=== PATIENT | female | born 1955 | race Caucasian/White ===

== ENCOUNTER → 2017-01-31 | Outpatient (CLI) | payer BC, SELFPAY | PROVIDERS: Visit Provider Internal Medicine Adolescent Medicine | DX: E11.9 Type 2 diabetes mellitus without complications (principal); E03.9 Hypothyroidism, unspecified; E78.5 Hyperlipidemia, unspecified | CPT/HCPCS: 36415; 80053; 80061; 83036; 84443 ==

== ENCOUNTER 2017-03-13 07:49 | Day surgery (SDC) | payer BC, SELFPAY ==
[2017-03-09 10:18] VITALS: BMI 41.6
[2017-03-13] VITALS (7 sets, daily range): BP systolic 91–151; BP diastolic 53–92; PULSE 61–76; RESP 18–20; TEMP 36.1–36.9; O2SAT 96–100
--- NOTE | 2017-03-13 08:03 | HMH.PROC ---
[facility] Procedure Note Procedure Note:: Colonoscopy Procedure Report: Colonoscopy Endoscopist: Dann Ibarra II, MD Referring physician: Ziyad Salomon M.D. Date of Procedure: March 13, 2017 Equipment: Olympus 180 variable stiffness pediatric colonoscope Sedation: MAC sedation Indication: Mrs. Martínez is a 61-year-old female who is here for follow-up screening/surveillance colonoscopy. The patient reports a strong family history of colon cancer (father with colon cancer in his early 70s and mother with colon cancer in her mid 60s. The patient did have a normal colonoscopy in September 2001 and January 2008. Her colonoscopy in 2012 showed a single polyp. The patient reports no abdominal pain, weight loss or change in her bowel habits. The patient does have a history of diarrhea predominant irritable bowel syndrome but does get some constipation. She notes some occasional spotting of blood on the toilet tissue from hemorrhoids. Procedure: Prior to the procedure, a history and physical exam was performed, and patient's medications and allergies were reviewed. The risks, benefits and alternatives of the sedation and procedure were discussed with the patient. All questions were answered and informed consent was obtained. The patient was brought to the procedure room. Patient identification and proposed procedure were verified by the physician and the nurse. The patient was placed in a left lateral decubitus position and the scope was passed under direct vision. Throughout the procedure, the patient's blood pressure, pulse, and oxygen saturations were monitored continuously. The colonoscopy was accomplished without difficulty. The patient tolerated the procedure well. Findings: On digital rectal examination there was normal rectal tone. There were no external hemorrhoids. The colonoscope was introduced through the anal canal to the rectum and advanced to the cecum. The ileocecal valve and appendiceal orifice were identified. The scope was advanced a short distance into the ileum which appeared grossly normal. The scope was then withdrawn into the colon. The cecum, ascending and transverse colon and mucosa were grossly normal. There were scattered diverticuli throughout the descending and sigmoid colon (LEFT colon). The rectum itself was normal. Upon retroflexion within the rectum there were grade 1 internal hemorrhoids. Impression: 1. Left-sided diverticulosis 2. Grade 1 internal hemorrhoids Plan: Based upon the patient's family history, I would recommend repeat screening/surveillance colonoscopy again in 5 years. I would encourage fiber bulking supplementation on a long-term daily maintenance basis.
--- NOTE | 2017-03-13 08:11 | P.PN_ITS ---
[facility] Anesthesia Checklist - Patient Identification Patient Identification: Arm Band, Verbal (Name & ) - Structural Data Admitted From: Home Planned Operative Procedure/s: colonoscopy Consent for Planned Operative Procedure(s) Verified: Yes Verified Documents: Surgical Consent - NPO Status Verified Time NPO: 00:00 - Additional verifications Patient : No Anesthesia Reactions: No Hx Blood Transfusions: No Blood Transfusion Reaction: No Cephalosporin Allergy: No Previous Colonoscopy: No - Cardiovascular Assessment Heart Sounds: S1 & S2 Pulse Strength: Strong Pulse Rhythm: Regular Peripheral Edema: No - Airway Assessment C-Spine Mobility Assessed: Yes TMJ Mobility Assessed: Yes Dentition: Good Dentition - Neurological Assessment Level of Consciousness: Awake, Alert, Appropriate Hx Seizures: No Numbness or tingling in extremities: No - Anesthesia Plan Anesthesia Risk discussed: Yes ASA Class: III Anesthesia Type: MAC [facility] Anesthesia HX I have reviewed the patient's past medical history: Yes Medical History: Reports:: Diabetes Mellitus Type 2 (prediabetic), Gastroesophageal Reflux Disease(GERD), Hyperlipidemia, Hypertension Denies:: Diabetes Mellitus Type 1, Internal Pacemaker, Lung Disease Other Surgeries: Yes: Colonoscopy, Hysterectomy-Partial. No: Pacemaker Amputation: No Fractures: No *Family Hx:: Unable to obtain
[2017-03-13 08:43] LABS: POC Glucose,Bedside 116 mg/dL
== END 2017-03-13 10:40 | disposition home or self-care (01) ==
LOC: OUTP 07:54
PROVIDERS: Family Provider Internal Medicine Adolescent Medicine; PCP Internal Medicine Adolescent Medicine; Visit Provider Internal Medicine Gastroenterology
PROC: 0DJD8ZZ Inspection of Lower Intestinal Tract, Via Natural or Artificial Opening Endoscopic (ICD-10-PCS; CPT 45378; principal; 2017-03-13 08:30)
DX: Z12.11 Encounter for screening for malignant neoplasm of colon (principal); Z80.0 Family history of malignant neoplasm of digestive organs; K58.2 Mixed irritable bowel syndrome; K57.30 Diverticulosis of large intestine without perforation or abscess without bleeding; K64.0 First degree hemorrhoids
CPT/HCPCS: 45378; 82962

== ENCOUNTER → 2017-05-31 07:31 | Outpatient (CLI) | payer BC, SELFPAY ==
[2017-05-31 09:53] LABS: Alanine Aminotransferase 34 U/L (12-78); Albumin Level 3.6 gm/dL (3.4-5.0); Albumin/Globulin Ratio 1.2 (1.1-1.8); Alkaline Phosphatase 105 U/L (46-116); Anion Gap 16.6 mEq/L (5-15); Aspartate Amino Transferase 15 U/L (15-37); Bilirubin,Total 0.4 mg/dL (0.2-1.0); Blood Urea Nitrogen 18 mg/dL (7-18); Calcium 9.2 mg/dL (8.5-10.1); Carbon Dioxide 23 mmol/L (21.0-32.0); Chloride 106 mmol/L (98-107); Chol/HDL Ratio 3.9 (1-3.5); Cholesterol 137 mg/dL (140-200); Creatinine,Serum 0.83 mg/dL (0.55-1.02); Estimated Glomerular Filt Rate 69 ml/min (>60); GFR (African American) 84 ML/MIN (>60); Glucose 122 mg/dL (74-106); HDL Cholesterol 35 mg/dL (29-89); LDL Cholesterol 77 mg/dL (0-130); Potassium 4.6 mmoL/L (3.5-5.1); Sodium 141 mmol/L (136-145); Thyroid Stimulating Hormone 0.44 uIU/ml (0.358-3.740); Total Protein,Serum 6.6 gm/dL (6.4-8.2); Triglycerides 124 mg/dL (30-200); VLDL Cholesterol 25 mg/dL (0-40)
[2017-05-31 10:23] LABS: Hemoglobin A1C 6.2 % (0.0-7.0)
== END ==
PROVIDERS: Visit Provider Internal Medicine Adolescent Medicine
DX: E11.9 Type 2 diabetes mellitus without complications (principal); E03.9 Hypothyroidism, unspecified
CPT/HCPCS: 36415; 80053; 80061; 83036; 84443

== ENCOUNTER 2017-07-28 15:00 | Outpatient (RCR) | payer BC, SELFPAY | END 2017-07-28 15:01 | disposition home or self-care (01) | LOC: PT 15:00 | PROVIDERS: Family Provider Internal Medicine Adolescent Medicine; PCP Internal Medicine Adolescent Medicine; Visit Provider Orthopaedic Surgery | DX: M25.561 Pain in right knee (principal) | CPT/HCPCS: 97014; 97016; 97033; 97035; 97110; 97163; 97164; G0283 ==

== ENCOUNTER → 2018-03-28 10:04 | Outpatient (CLI) | payer BC, SELFPAY ==
[2018-03-28 11:52] LABS: Alanine Aminotransferase 35 U/L (12-78); Albumin Level 3.6 gm/dL (3.4-5.0); Albumin/Globulin Ratio 1.2 (1.1-1.8); Alkaline Phosphatase 103 U/L (46-116); Anion Gap 14.5 mEq/L (5-15); Aspartate Amino Transferase 12 U/L (15-37); Bilirubin,Total 0.6 mg/dL (0.2-1.0); Blood Urea Nitrogen 20 mg/dL (7-18); Carbon Dioxide 26 mmol/L (21.0-32.0); Chloride 107 mmol/L (98-107); Chol/HDL Ratio 3.6 (1-3.5); Cholesterol 140 mg/dL (140-200); Creatinine,Serum 0.82 mg/dL (0.55-1.02); Estimated Glomerular Filt Rate 70 ml/min (>60); Free Thyroxine Index 4.3 ug/dL (5.93-13.13); GFR (African American) 85 ML/MIN (>60); Globulin 2.9 gm/dl (1.3-3.2); Glucose 106 mg/dL (74-106); HDL Cholesterol 39 mg/dL (29-89); LDL Cholesterol 83 mg/dL (0-130); Potassium 4.5 mmoL/L (3.5-5.1); Sodium 143 mmol/L (136-145); T4 (Thyroxine) 12.4 ug/dl (4.7-13.3); Total Protein,Serum 6.5 gm/dL (6.4-8.2); Triglycerides 92 mg/dL (30-200); Triiodothryronine (T3) Uptake 35 % (31-39); VLDL Cholesterol 18 mg/dL (0-40)
[2018-03-28 13:32] LABS: Hemoglobin A1C 6.8 % (0.0-7.0)
== END ==
PROVIDERS: Visit Provider Internal Medicine Adolescent Medicine
DX: E78.5 Hyperlipidemia, unspecified (principal); E11.9 Type 2 diabetes mellitus without complications; E03.9 Hypothyroidism, unspecified
CPT/HCPCS: 36415; 80053; 80061; 83036; 84436; 84443; 84479

== ENCOUNTER → 2018-04-17 15:06 | Outpatient (CLI) | payer BC, SELFPAY ==
--- NOTE | 2018-04-17 15:08 | MR_ITS ---
MR head/brain wo con HISTORY: Sudden onset of headache in the left frontal area with dizziness ITS.REASON: OTHER MIGRAINE NOT INTRACTABLE ORDERING PHYSICIAN: Nancy Powers PATIENT AGE: 62 years Comparison: 04/16/2013 TECHNIQUE: Standard multiplanar multiecho sequences are performed without contrast. FINDINGS: No midline shift, mass effect, intracranial hemorrhage, or hydrocephalus is evident. The cerebellopontine angles, cerebellum, and brainstem have an unremarkable appearance. There are a few scattered periventricular T2 white matter hyperintensities consistent with mild ischemic gliotic change from microvascular disease. There are a few additional T2 white matter hyperintensities compared to the previous study. No acute infarction. There is hyperostosis frontalis internal. Partially the sella is present as a normal variant. No mastoid effusion or sinus air-fluid level IMPRESSION: 1. No acute intracranial findings 2. Nonspecific periventricular T2 white matter hyperintensities consistent with ischemic gliotic changes
== END ==
PROVIDERS: PCP Internal Medicine Adolescent Medicine; Visit Provider Nurse Practitioner Family
DX: G43.809 Other migraine, not intractable, without status migrainosus (principal)
CPT/HCPCS: 70551

== ENCOUNTER → 2018-05-16 07:55 | Outpatient (CLI) | payer BC, SELFPAY ==
[2018-05-16 08:31] LABS: Basophils # 0.1 K/mm3 (0-0.2); Basophils % 0.9 % (0.1-2.0); Eosinophils # 0.2 K/mm3 (0.0-0.4); Eosinophils % 2.5 % (0.1-12.0); Hematocrit 40.4 % (37.0-47.0); Hemoglobin 13.2 g/dL (12.2-16.2); Lymphocytes # 3.5 K/mm3 (0.7-4.5); Lymphocytes % 40.4 % (10-50); Mean Corpuscular HGB Conc 32.7 g/dL (31.8-35.4); Mean Corpuscular Hemoglobin 28.5 pg (27.0-31.2); Mean Platelet Volume 7.1 fl (7.4-10.4); Monocytes # 0.4 K/mm3 (0.1-1.0); Monocytes % 4.1 % (1.7-9.3); Neutrophils # 4.5 K/mm3 (1.8-7.8); Neutrophils % 52.2 % (37.0-80.0); Platelet Count 329 K/mm3 (142-424); Red Blood Count 4.65 M/mm3 (4.20-5.40); Red Cell Distribution Width 13.4 % (11.5-17.5); White Blood Count 8.6 K/mm3 (4.8-10.8)
[2018-05-16 09:08] LABS: Alanine Aminotransferase 32 U/L (12-78); Albumin Level 3.5 gm/dL (3.4-5.0); Alkaline Phosphatase 106 U/L (46-116); Aspartate Amino Transferase 17 U/L (15-37); Bilirubin,Direct 0.1 mg/dL (0.0-0.2); Bilirubin,Indirect 0.2 mg/dL (0.0-0.9); Bilirubin,Total 0.3 mg/dL (0.2-1.0); Chol/HDL Ratio 3.5 (1-3.5); Cholesterol 138 mg/dL (140-200); HDL Cholesterol 39 mg/dL (29-89); LDL Cholesterol 82 mg/dL (0-130); Total Protein,Serum 6.6 gm/dL (6.4-8.2); Triglycerides 83 mg/dL (30-200); VLDL Cholesterol 17 mg/dL (0-40)
[2018-05-16 09:13] LABS: Free Thyroxine Index 4.5 ug/dL (5.93-13.13); T4 (Thyroxine) 12.8 ug/dl (4.7-13.3); Thyroid Stimulating Hormone 1.64 uIU/ml (0.358-3.740); Triiodothryronine (T3) Uptake 35 % (31-39)
[2018-05-17 15:07] LABS: FSH 27.2 mIU/mL (.); LH 16.3 mIU/mL (.)
== END ==
PROVIDERS: Visit Provider Internal Medicine Adolescent Medicine
DX: R23.2 Flushing (principal); E78.5 Hyperlipidemia, unspecified
CPT/HCPCS: 36415; 80061; 80076; 83001; 83002; 84436; 84443; 84479; 85025

== ENCOUNTER → 2018-09-28 11:13 | Outpatient (CLI) | payer BC, MEDICARE, SELFPAY ==
[2018-09-28 15:28] LABS: Alanine Aminotransferase 38 U/L (12-78); Albumin Level 3.6 gm/dL (3.4-5.0); Albumin/Globulin Ratio 1.1 (1.1-1.8); Alkaline Phosphatase 99 U/L (46-116); Anion Gap 16.1 mEq/L (5-15); Aspartate Amino Transferase 15 U/L (15-37); Bilirubin,Total 0.4 mg/dL (0.2-1.0); Blood Urea Nitrogen 26 mg/dL (7-18); Calcium 9.1 mg/dL (8.5-10.1); Carbon Dioxide 26 mmol/L (21.0-32.0); Chloride 103 mmol/L (98-107); Chol/HDL Ratio 3.6 (1-3.5); Cholesterol 115 mg/dL (140-200); Creatinine,Serum 0.93 mg/dL (0.55-1.02); Estimated Glomerular Filt Rate 61 ml/min (>60); GFR (African American) 73 ML/MIN (>60); Globulin 3.2 gm/dl (1.3-3.2); Glucose 109 mg/dL (74-106); HDL Cholesterol 32 mg/dL (29-89); LDL Cholesterol 54 mg/dL (0-130); Potassium 4.1 mmoL/L (3.5-5.1); Sodium 141 mmol/L (136-145); Thyroid Stimulating Hormone 1.36 uIU/ml (0.358-3.740); Total Protein,Serum 6.8 gm/dL (6.4-8.2); Triglycerides 146 mg/dL (30-200); VLDL Cholesterol 29 mg/dL (0-40)
== END ==
PROVIDERS: PCP Internal Medicine Adolescent Medicine; Visit Provider Internal Medicine Adolescent Medicine
DX: E78.5 Hyperlipidemia, unspecified (principal); E03.9 Hypothyroidism, unspecified; E11.9 Type 2 diabetes mellitus without complications; Z79.84 Long term (current) use of oral hypoglycemic drugs
CPT/HCPCS: 36415; 80053; 80061; 83036; 84443

== ENCOUNTER → 2018-12-10 12:56 | Outpatient (POV) | payer BC, MEDICARE, SELFPAY | PROVIDERS: PCP Internal Medicine Adolescent Medicine; Visit Provider Nurse Practitioner Family | DX: Z00.00 Encounter for general adult medical examination without abnormal findings (principal) ==

== ENCOUNTER → 2019-06-25 10:20 | Outpatient (CLI) | payer BC, MEDICARE, SELFPAY ==
[2019-06-25 11:05] LABS: Basophils # 0.1 K/mm3 (0-0.2); Basophils % 1.1 % (0.1-2.0); Eosinophils # 0.5 K/mm3 (0.0-0.4); Eosinophils % 5.4 % (0.1-12.0); Lymphocytes # 3.5 K/mm3 (0.7-4.5); Lymphocytes % 37.7 % (10-50); Mean Corpuscular HGB Conc 32.4 g/dL (31.8-35.4); Mean Corpuscular Hemoglobin 27.5 pg (27.0-31.2); Mean Platelet Volume 7.6 fl (7.4-10.4); Monocytes # 0.5 K/mm3 (0.1-1.0); Monocytes % 5.8 % (1.7-9.3); Neutrophils # 4.6 K/mm3 (1.8-7.8); Neutrophils % 49.9 % (37.0-80.0); Platelet Count 365 K/mm3 (142-424); Red Blood Count 4.71 M/mm3 (4.20-5.40); Red Cell Distribution Width 13.6 % (11.5-17.5); White Blood Count 9.2 K/mm3 (4.8-10.8)
[2019-06-25 12:13] LABS: Alanine Aminotransferase 24 U/L (12-78); Albumin Level 4.4 g/dl (3.5-5.0); Albumin/Globulin Ratio 1.7 (1.1-1.8); Alkaline Phosphatase 109 U/L (38-126); Anion Gap 13.2 mEq/L (5-15); Aspartate Amino Transferase 25 U/L (14-36); Bilirubin,Total 0.5 mg/dl (0.2-1.3); Blood Urea Nitrogen 21 mg/dl (7-17); Calcium 10.2 mg/dl (8.4-10.2); Carbon Dioxide 29 mmol/L (22.0-30.0); Chloride 99 mmol/L (98-107); Chol/HDL Ratio 2.8 (1-3.5); Cholesterol 85 mg/dl (140-200); Estimated Glomerular Filt Rate 72 ml/min (>60); GFR (African American) 87 ML/MIN (>60); Globulin 2.6 g/dL (1.3-3.2); Glucose 136 mg/dl (74-100); HDL Cholesterol 30 mg/dl (40-60); Potassium 4.2 mmoL/L (3.5-5.1); Sodium 137 mmol/L (136-145); Triglycerides 124 mg/dl (30-150); VLDL Cholesterol 25 mg/dL (0-40)
[2019-06-25 12:23] LABS: Direct LDL Cholesterol 43.24 mg/dL (100-129)
[2019-06-25 12:41] LABS: Thyroid Stimulating Hormone 0.05 uIU/mL (0.465-4.68)
[2019-06-25 13:26] LABS: Hemoglobin A1C 6.1 % (4.0-6.0)
[2019-06-27 11:13] LABS: Vitamin D 25 Hydroxy 47.9 ng/mL (30.0-100.0)
== END ==
PROVIDERS: Visit Provider Internal Medicine Adolescent Medicine
DX: E78.5 Hyperlipidemia, unspecified (principal); E03.9 Hypothyroidism, unspecified; E11.9 Type 2 diabetes mellitus without complications; Z79.84 Long term (current) use of oral hypoglycemic drugs
CPT/HCPCS: 36415; 80053; 80061; 82652; 83036; 84443; 85025

== ENCOUNTER → 2019-07-04 08:56 | Outpatient (CLI) | payer BC, MEDICARE, SELFPAY ==
[2019-07-04 10:24] LABS: Coronavirus 19 IgG Antibody Negative (Negative); Coronavirus 19 IgM Antibody Negative (Negative)
== END ==
PROVIDERS: Visit Provider Internal Medicine Gastroenterology
DX: Z03.818 Encounter for observation for suspected exposure to other biological agents ruled out (principal)
CPT/HCPCS: 36415; 86328

== ENCOUNTER 2019-07-05 08:57 | Day surgery (SDC) | payer BC, MEDICARE, SELFPAY ==
--- NOTE | 2019-07-02 11:46 | SUR.PREOP ---
07/02/2019 @ 5496--PHONE CALL MADE TO PATIENT. PATIENT UNDERSTANDS THAT LAB WORK AND COVID TESTING NEEDS TO BE COMPLETED @ 0900 ON 07/04/2019. PATIENT UNDERSTANDS IF LAB WORK AND COVID-19 TESTS ARE NOT COMPLETED BY 12PM ON THAT DATE, THE SURGERY SCHEDULED WILL BE CANCELLED AND RESCHEDULED FOR ANOTHER TIME.
[2019-07-03 15:08] VITALS: BMI 40.7
[2019-07-05] VITALS (7 sets, daily range): BP systolic 99–134; BP diastolic 41–76; PULSE 82–95; RESP 18; TEMP 36.1–36.4; O2SAT 94–100
--- NOTE | 2019-07-05 10:50 | P.PN_ITS ---
[facility] Anesthesia Checklist - Patient Identification Patient Identification: Arm Band - Structural Data Admitted From: Home Planned Operative Procedure/s: colonoscopy Consent for Planned Operative Procedure(s) Verified: Yes Verified Documents: Surgical Consent, History and Physical - NPO Status Verified Time NPO: 00:00 - Additional verifications Anesthesia Reactions: No Hx Blood Transfusions: No Blood Transfusion Reaction: No - Airway Assessment C-Spine Mobility Assessed: Yes (mp2) TMJ Mobility Assessed: Yes Dentition: Good Dentition - Neurological Assessment Level of Consciousness: Awake, Alert - Anesthesia Plan Anesthesia Risk discussed: Yes Anesthesia Plan: Verified ASA Class: III Anesthesia Type: MAC [facility] History I have reviewed the patient's past medical history: Yes Medical History: Reports:: 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 No: Pacemaker Amputation: No Fractures: No - *Social History Educational Level: Completed College Alcohol Intake: never Substance Use Type: denies use *Occupational Status:: employed Housing: house Household Members: family *Travel in the last 8 weeks: None Family Hx:: No significant family history
--- NOTE | 2019-07-05 11:23 | HMH.PROC ---
[facility] Procedure Note Procedure Note:: Colonoscopy Procedure Report: Colonoscopy Endoscopist: Dann Ibarra II, MD Referring physician: Ziyad Salomon M.D./Eddie Moore MD Date of Procedure: July 05, 2019 Equipment: Olympus 180 variable stiffness pediatric colonoscope Sedation: MAC sedation Indication: Mrs. Martínez is a 64-year-old female who is here for diagnostic colonoscopy secondary to some new bright red rectal bleeding and painful bowel movements. She has had longstanding irritable bowel syndrome (mixed) and does take a fiber bowel regimen (MiraLAX plus Metamucil mixed together every morning). She has had more obstipation/incomplete defecation. She did take Dulcolax. Linzess resulted in more watery or loose bowel movements. The patient does have a strong family history of colon cancer (mother and father). She has had routine surveillance colonoscopies with co and her last was 2 years ago. The patient also had gastric sleeve surgery. At the time of surgery she was noted to have a gastric mass. She underwent an endoscopic ultrasound that showed possible GIST. She went to Dr. Eddie Moore oncologic surgery at the [facility] and underwent robotic partial gastrectomy. 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 Procedure: Prior to the procedure, a history and physical exam was performed, and patient's medications and allergies were reviewed. The risks, benefits and alternatives of the sedation and procedure were discussed with the patient. All questions were answered and informed consent was obtained. The patient was brought to the procedure room. Patient identification and proposed procedure were verified by the physician and the nurse. The patient was placed in a left lateral decubitus position and the scope was passed under direct vision. Throughout the procedure, the patient's blood pressure, pulse, and oxygen saturations were monitored continuously. The colonoscopy was accomplished without difficulty. The patient tolerated the procedure well. Findings: On digital rectal examination there was normal to increased rectal tone. There was a posterior midline anal fissure. There were no external hemorrhoids. The anal canal was dilated manually. The colonoscope was introduced through the anal canal to the rectum and advanced to the cecum. The ileocecal valve and appendiceal orifice were identified. The scope was advanced a short distance into the ileum which appeared grossly normal. The scope was then withdrawn into the colon. The cecum, ascending and transverse colon and mucosa were grossly normal. There were scattered extensive diverticuli throughout the descending and sigmoid colon (LEFT colon). The rectum itself was normal. Upon retroflexion within the rectum there were grade 1 internal hemorrhoids. The preparation was excellent throughout with [place] Preparation Score of 9. The cecal time was 12 minutes. Impression: 1. Posterior midline anal fissure 2. Left-sided diverticulosis 3. Grade 1 internal hemorrhoids Plan: I would encourage resuming the fiber bowel regimen (MiraLAX plus Konsyl or Citrucel by mouth twice daily). I am going to have her use nitroglycerin ointment for assistance in healing and helping with the anal spasm/discomfort. I will discuss all findings with the patient and family.
[2019-07-05 18:59] LABS: POC Glucose,Bedside 110 (70-110)
== END 2019-07-05 12:25 | disposition home or self-care (01) ==
LOC: OUTP 08:59
PROVIDERS: PCP Internal Medicine Adolescent Medicine; Visit Provider Internal Medicine Gastroenterology
PROC: 0DJD8ZZ Inspection of Lower Intestinal Tract, Via Natural or Artificial Opening Endoscopic (ICD-10-PCS; CPT 45378; principal; 2019-07-05 10:00)
DX: K60.2 Anal fissure, unspecified (principal); K57.30 Diverticulosis of large intestine without perforation or abscess without bleeding; K64.0 First degree hemorrhoids; Z80.0 Family history of malignant neoplasm of digestive organs; Z98.84 Bariatric surgery status; Z87.19 Personal history of other diseases of the digestive system; I10 Essential (primary) hypertension; E11.9 Type 2 diabetes mellitus without complications; E78.5 Hyperlipidemia, unspecified; E03.9 Hypothyroidism, unspecified; K21.9 Gastro-esophageal reflux disease without esophagitis; K58.9 Irritable bowel syndrome, unspecified
CPT/HCPCS: 45378; 82962

== ENCOUNTER 2019-11-07 07:31 | Emergency (ER) | payer BC, MEDICARE, SELFPAY ==
[2019-11-07 07:48] VITALS: BP 119/68; PULSE 84; RESP 17; TEMP 36.7; O2SAT 97; BMI 40.7
--- NOTE | 2019-11-07 07:52 | XR_ITS ---
PROCEDURE: XR CHEST PORTABLE CLINICAL HISTORY: dizzy COMPARISON: No exams were available for comparison FINDINGS: The cardiomediastinal silhouette and pulmonary vascularity are within normal limits. The lungs are clear without infiltrates, suspicious nodules, or pleural effusions. No acute bony abnormalities. IMPRESSION: No acute findings. Dictated by: Zen Pryor MD 11/07/2019 08:50 Zen Pryor MD in [place] 11/07/2019 08:50
--- NOTE | 2019-11-07 07:52 | CT_ITS ---
PROCEDURE: CT HEAD/BRAIN WO CON CLINICAL INDICATION: dizzy COMPARISON: MR BRAINWO MR head/brain wo con from 04/17/2018 TECHNIQUE: Axial images obtained. All CT scans at the facility use one or more dose reduction, viz: automated exposure control, ma/kV adjustment per patient size (including targeted exams where dose is matched to indication, i.e. head), or iterative reconstruction technique. FINDINGS: No midline shift, mass effect, intracranial hemorrhage, hydrocephalus, or extra-axial fluid collection is evident. Prostate doses frontalis interna. There is mild smooth exostosis of the left frontal bone. Minimal calcification noted in the left basal ganglia and right foramen of [place] region.. The calvarium has an unremarkable appearance. No mastoid effusion. No sinus air-fluid level. IMPRESSION: No acute intracranial finding Dictated by: Zen Pryor MD 11/07/2019 08:49 Zen Pryor MD in [place] 11/07/2019 08:49
--- NOTE | 2019-11-07 07:59 | ECG_ITS ---
APPROVED REPORT Exam: Resting ECG HR:85 bpm ECG Measurements Heart Rate 85 AXES SC 178 P 32 QRSd 88 QRS 20 QT 382 T -2 QTc 454 <Conclusion> Normal sinus rhythm Old isolated q in iii Late r wave progression Abnormal ECG Electronically signed by : Ziyad Salomon, 11/09/2019 06:29:18
[2019-11-07 08:01] LABS: Microscopic, Urine URINE MICROSCOPIC (MICROSCOPIC)
[2019-11-07 08:05] LABS: Chloride 103 mmol/L (98-107); Potassium 3.7 mmoL/L (3.5-5.1); Sodium 141 mmol/L (136-145)
[2019-11-07 08:07] LABS: Basophils # 0.1 K/mm3 (0-0.2); Basophils % 1.1 % (0.1-2.0); Eosinophils # 0.3 K/mm3 (0.0-0.4); Eosinophils % 2.9 % (0.1-12.0); Hemoglobin 13.9 g/dL (12.2-16.2); Lymphocytes # 3.3 K/mm3 (0.7-4.5); Lymphocytes % 36.1 % (10-50); Mean Corpuscular HGB Conc 33.9 g/dL (31.8-35.4); Mean Corpuscular Hemoglobin 29.3 pg (27.0-31.2); Mean Corpuscular Volume 86.4 fl (81-99); Mean Platelet Volume 7.4 fl (7.4-10.4); Monocytes # 0.4 K/mm3 (0.1-1.0); Monocytes % 4.3 % (1.7-9.3); Neutrophils % 55.6 % (37.0-80.0); Platelet Count 309 K/mm3 (142-424); Red Blood Count 4.75 M/mm3 (4.20-5.40); Red Cell Distribution Width 13.9 % (11.5-17.5); White Blood Count 9.1 K/mm3 (4.8-10.8)
[2019-11-07 08:08] LABS: Alanine Aminotransferase 48 U/L (12-78); Albumin Level 4.3 g/dl (3.5-5.0); Albumin/Globulin Ratio 1.6 (1.1-1.8); Alkaline Phosphatase 105 U/L (38-126); Anion Gap 14.7 mEq/L (5-15); Aspartate Amino Transferase 33 U/L (14-36); Bilirubin,Total 0.5 mg/dl (0.2-1.3); Blood Urea Nitrogen 29 mg/dl (7-17); Calcium 9.9 mg/dl (8.4-10.2); Carbon Dioxide 27 mmol/L (22.0-30.0); Creatinine Clearance Estimated 91 mL/min (50-200); Estimated Glomerular Filt Rate 72 ml/min (>60); GFR (African American) 87 ML/MIN (>60); Globulin 2.7 g/dL (1.3-3.2); Glucose 169 mg/dl (74-100)
--- NOTE | 2019-11-07 08:12 | PC.NURSE ---
patient to radiology via stretcher at this time.
[2019-11-07 08:13] VITALS: BP 117/63; BP 120/68; BP 99/53; PULSE 79; PULSE 82; PULSE 89
[2019-11-07 08:14] LABS: C-Reactive Protein 2.7 mg/L (0-4)
[2019-11-07 08:24] LABS: Troponin I < 0.01 ng/ml (0.00-0.034)
[2019-11-07 08:25] LABS: Appearance,Urine SL CLOUDY (Clear); Bilirubin,Urine Negative (Negative); Blood, Urine Negative (Negative); Color,Urine YELLOW (Yellow); Glucose,Urine (UA) Negative (Negative); Ketones,Urine Negative (Negative); Leukocyte Esterase,Urine 1+ (Negative); Nitrate,Urine POSITIVE (Negative); PH,Urine 6.5 (5.0-8.5); Protein,Urine Negative (Negative); Specific Gravity, Urine 1.025 (1.005-1.030); Urobilinogen,Urine 0.2 EU/dl (0.2)
[2019-11-07 08:26] LABS: Bacteria,Urine 1+ /lpf; RBC,Urine Occasional #/hpf (0-3); WBC,Urine 20-50 #/hpf (0-3)
[2019-11-07 08:28] LABS: Free T4 (Free Thyroxine) 1.77 ng/dl (0.78-2.19)
[2019-11-07 08:30] LABS: Erythrocyte Sedimentation Rate 25 mm/hr (0-30)
[2019-11-07 08:41] LABS: Thyroid Stimulating Hormone 0.06 uIU/mL (0.465-4.68)
--- NOTE | 2019-11-07 08:50 | PC.NURSE ---
radiology studies complete. pt pending disposition.
[2019-11-07 08:59] VITALS: BP 111/52; PULSE 76; RESP 16; O2SAT 97
--- NOTE | 2019-11-07 09:15 | PC.NURSE ---
pt states she is feeling some better. pt complains of headache at this time. new orders received. see mar.
--- NOTE | 2019-11-07 09:33 | PC.NURSE ---
dr holden at bedside for disposition. pt and updated on plan of care. both deny questions or needs at this time.
--- NOTE | 2019-11-07 09:35 | HMH.EDDIZZ ---
ED Disposition Clinical Impression: UTI (urinary tract infection), M?ni?re's disease Disposition: Home, Self-Care Condition on Discharge: Good Instructions: DI for Meniere's Disease Prescriptions: Meclizine HCl [Meclizine 25mg Tab] 25 mg PO TID 10 Days #30 tab Transmission Status: Pending to [id number] Nitrofurantoin Monohyd/M-Cryst [Nitrofurantoin [place]-Mcr 100 mg] 100 mg PO BID 10 Days #20 cap Transmission Status: Pending to [id number] Triamterene 50 mg PO DAILY 30 Days #30 cap Transmission Status: Pending to [id number] Ondansetron [Zofran 4mg ODT] 4 mg PO TID PRN 4 Days #15 tab.rapdis PRN Reason: Nausea Transmission Status: Pending to [id number] Referrals: Ziyad Salomon MD [Primary Care Provider] - - Critical Care Critical Care Time: No Attestation: On 11/07/19, the high probability of a clinically significant, sudden or life threatening deterioration of the following system(s) required my full and direct attention, intervention and personal management. The time I documented below is in addition to time spent performing reported procedures but includes the following listed in this critical care notation. Medical Decision Making - Medical Records Medical records reviewed: Yes: I reviewed the patient's medical records. - Gabriele Inquiry Pt receiving controlled substance: No Vital Signs: 11/07/19 07:48 11/07/19 08:13 11/07/19 08:59 Temperature 98.1 F Temperature Source Oral Pulse Rate [Orthostatic Lying Right Radial] 82 Pulse Rate [Orthostatic Sitting Right Radial] 79 Pulse Rate [Orthostatic Standing Right Radial] 89 Pulse Rate [Right Radial] 84 76 Respiratory Rate 17 16 Blood Pressure [Orthostatic Lying Right Arm] 99/53 L Blood Pressure [Orthostatic Sitting Right Arm] 117/63 Blood Pressure [Orthostatic Standing Right Arm] 120/68 Blood Pressure [Right Arm] 119/68 111/52 L Blood Pressure Mean [Right Arm] 85 71 Blood Pressure Source [Right Arm] Automatic Cuff Blood Pressure Position [Right Arm] Sitting 02 Sat by Pulse Oximetry 97 97 Oxygen Delivery Method Room Air - Lab Data Lab results reviewed: Yes: I reviewed the patient's lab results. Lab Results 11/07/19 07:35: Urine Color Yellow, Urine Appearance Sl cloudy, Urine pH 6.5, Ur Specific [place] 1.025, Urine Protein Negative, Urine Glucose (UA) Negative, Urine Ketones Negative, Urine Blood Negative, Urine Nitrate Positive, Urine Bilirubin Negative, Urine Urobilinogen 0.2, Ur Leukocyte Esterase 1+ A, Urine RBC Occasional, Urine WBC 20-50, Ur Squamous Epith Cells 3-5, Urine Bacteria 1+ 11/07/19 07:45: Sodium 141, Potassium 3.7, Chloride 103, Carbon Dioxide 27, Anion Gap 14.7, BUN 29 H, Creatinine 0.80, Estimated Creat Clear 91, Estimated GFR 72, Est GFR ( Amer) 87, Glucose 169 H, Calcium 9.9, Total Bilirubin 0.5, AST 33, ALT 48, Alkaline Phosphatase 105, Troponin I < 0.01, C-Reactive Protein 2.7, Total Protein 7.0, Albumin 4.3, Globulin 2.7, Albumin/Globulin Ratio 1.6, TSH 0.06 L 11/07/19 07:45: Free T4 1.77 11/07/19 07:45: WBC 9.1, RBC 4.75, Hgb 13.9, Hct 41.0, MCV 86.4, MCH 29.3, MCHC 33.9, RDW 13.9, Plt Count 309, MPV 7.4, Neut % (Auto) 55.6, Lymph % (Auto) 36.1, [place] % (Auto) 4.3, Eos % (Auto) 2.9, Baso % (Auto) 1.1, Neut # (Auto) 5.0, Lymph # (Auto) 3.3, [place] # (Auto) 0.4, Eos # (Auto) 0.3, Baso # (Auto) 0.1 11/07/19 07:45: ESR 25 Result diagrams: 11/07/19 07:45 11/07/19 07:45 Orders (Tests/Meds): ED MEDICATIONS Discontinued Medications Generic Name Dose Route Start Last Admin Trade Name Freq PRN Reason Stop Dose Admin Acetaminophen 1,000 mg 11/07/19 09:12 11/07/19 09:13 Tylenol 500mg Tablet PO 11/07/19 09:13 1,000 mg ONCE ONE Administration Sodium Chloride 1,000 mls @ 999 mls/hr 11/07/19 08:00 11/07/19 08:14 Sod Chlor 0.9% 1000ml Bag IV 11/07/19 09:00 999 mls/hr .Q1H1M SILVIA Administration Ondansetron HCl 4 mg 11/07/19 08:13 0
[2019-11-07 09:53] VITALS: BP 108/56; PULSE 74; RESP 15; TEMP 36.8; O2SAT 99
== END 2019-11-07 09:53 | disposition home or self-care (01) ==
PROVIDERS: Emergency Provider Emergency Medicine; PCP Internal Medicine Adolescent Medicine
DX: N30.00 Acute cystitis without hematuria (principal); H81.09 Meniere's disease, unspecified ear; I10 Essential (primary) hypertension; E78.5 Hyperlipidemia, unspecified; E11.9 Type 2 diabetes mellitus without complications; Z90.79 Acquired absence of other genital organ(s); K21.9 Gastro-esophageal reflux disease without esophagitis; Z79.899 Other long term (current) drug therapy
CPT/HCPCS: 70450; 71045; 80053; 81001; 84439; 84443; 84484; 85025; 85651; 86140; 87086; 87088; 87186; 93005; 96365; 96375; 99284; J2405

== ENCOUNTER → 2020-01-03 07:45 | Outpatient (CLI) | payer BC, MEDICARE, SELFPAY ==
[2020-01-03 08:15] LABS: Basophils # 0.1 K/mm3 (0-0.2); Basophils % 1.3 % (0.1-2.0); Eosinophils # 0.3 K/mm3 (0.0-0.4); Eosinophils % 3.6 % (0.1-12.0); Hematocrit 41.1 % (37.0-47.0); Hemoglobin 13.3 g/dL (12.2-16.2); Lymphocytes # 3.9 K/mm3 (0.7-4.5); Lymphocytes % 45.3 % (10-50); Mean Corpuscular HGB Conc 32.4 g/dL (31.8-35.4); Mean Corpuscular Hemoglobin 27.7 pg (27.0-31.2); Mean Corpuscular Volume 85.6 fl (81-99); Mean Platelet Volume 7.6 fl (7.4-10.4); Monocytes # 0.5 K/mm3 (0.1-1.0); Monocytes % 5.8 % (1.7-9.3); Neutrophils # 3.8 K/mm3 (1.8-7.8); Platelet Count 340 K/mm3 (142-424); Red Blood Count 4.81 M/mm3 (4.20-5.40); Red Cell Distribution Width 14.1 % (11.5-17.5); White Blood Count 8.6 K/mm3 (4.8-10.8)
[2020-01-03 10:07] LABS: Chloride 102 mmol/L (98-107)
[2020-01-03 10:08] LABS: Potassium 3.8 mmoL/L (3.5-5.1)
[2020-01-03 10:10] LABS: Alanine Aminotransferase 40 U/L (12-78); Alkaline Phosphatase 111 U/L (38-126); Aspartate Amino Transferase 30 U/L (14-36); Bilirubin,Total 0.5 mg/dl (0.2-1.3); Blood Urea Nitrogen 22 mg/dl (7-17); Carbon Dioxide 25 mmol/L (22.0-30.0); Estimated Glomerular Filt Rate 72 ml/min (>60); GFR (African American) 87 ML/MIN (>60)
[2020-01-03 10:11] LABS: Albumin Level 4.1 g/dl (3.5-5.0); Albumin/Globulin Ratio 1.7 (1.1-1.8); Calcium 9.6 mg/dl (8.4-10.2); Chol/HDL Ratio 3.8 (1-3.5); Cholesterol 105 mg/dl (140-200); Globulin 2.4 g/dL (1.3-3.2); Glucose 131 mg/dl (74-100); HDL Cholesterol 28 mg/dl (40-60); Total Protein,Serum 6.5 g/dl (6.3-8.2); Triglycerides 128 mg/dl (30-150); VLDL Cholesterol 26 mg/dL (0-40)
[2020-01-03 10:13] LABS: Anion Gap 15.8 mEq/L (5-15); Sodium 139 mmol/L (136-145)
[2020-01-03 18:29] LABS: Direct LDL Cholesterol 62.76 mg/dL (100-129)
[2020-01-03 18:40] LABS: Hemoglobin A1C 6.5 % (4.0-6.0)
[2020-01-03 18:49] LABS: Thyroid Stimulating Hormone 0.05 uIU/mL (0.465-4.68)
== END ==
PROVIDERS: Visit Provider Internal Medicine Adolescent Medicine
DX: E11.9 Type 2 diabetes mellitus without complications (principal); E03.9 Hypothyroidism, unspecified; E78.5 Hyperlipidemia, unspecified; Z79.84 Long term (current) use of oral hypoglycemic drugs
CPT/HCPCS: 36415; 80053; 80061; 83036; 84443; 85025

== ENCOUNTER → 2020-05-12 12:45 | Outpatient (CLI) | payer BC, MEDICARE, SELFPAY ==
--- NOTE | 2020-05-12 13:18 | MM_ITS ---
PROCEDURE: MM DIG SCREENING MAMM BI W/CAD Digital Breast Tomosynthesis Included CLINICAL INDICATION: SCREENING There is no personal or family history of breast cancer. There has been a previous biopsy left breast for benign disease. COMPARISON: MG SS MAMM SURGICAL SPECIMEN from 10/14/2009 MG DMDXUL DIG MAMM-DX UNILATERAL-LT from 10/14/2009 MG DMSB DIG MAMM-SCREEN MARISABEL from 01/22/2015 TECHNIQUE: There is no personal or family history of breast cancer. Standard CC and MLO images and 3D Tomosynthesis was obtained. R2 CAD reviewed. FINDINGS: Moderate scattered fibroglandular densities are seen in both breasts. There are few benign-appearing microcalcifications in each breast. There are 2 biopsy clips left breast. There is a mole marker left breast and 2 mole markers right breast. Benign-appearing nodular densities in both breasts. There is no suspicious lesion and no suspicious microcalcifications. IMPRESSION: Moderate breast density with no suspicious BI-RAD Category: 2 Benign Finding(s) FOLLOW-UP: 1YR 1 Year Follow-up (A letter has been sent to the patient regarding results of the study.) Dictated by: Dr. Josué Cruz MD 05/19/2020 11:28 Dr. Josué Cruz MD in [place] 05/19/2020 11:28
== END ==
PROVIDERS: PCP Internal Medicine Adolescent Medicine; Visit Provider Internal Medicine Adolescent Medicine
DX: Z12.31 Encounter for screening mammogram for malignant neoplasm of breast (principal)
CPT/HCPCS: 77063; 77067

== ENCOUNTER → 2020-07-17 07:26 | Outpatient (CLI) | payer BC, MEDICARE, SELFPAY ==
[2020-07-17 08:06] LABS: Basophils # 0.1 K/mm3 (0-0.2); Eosinophils # 0.7 K/mm3 (0.0-0.4); Eosinophils % 6.9 % (0.1-12.0); Hematocrit 39.2 % (37.0-47.0); Hemoglobin 13.4 g/dL (12.2-16.2); Lymphocytes # 4.7 K/mm3 (0.7-4.5); Lymphocytes % 46.4 % (10-50); Mean Corpuscular HGB Conc 34.1 g/dL (31.8-35.4); Mean Corpuscular Hemoglobin 28.7 pg (27.0-31.2); Mean Corpuscular Volume 84.2 fl (81-99); Mean Platelet Volume 8.1 fl (7.4-10.4); Monocytes # 0.5 K/mm3 (0.1-1.0); Monocytes % 5.2 % (1.7-9.3); Neutrophils # 4.1 K/mm3 (1.8-7.8); Neutrophils % 40.5 % (37.0-80.0); Platelet Count 314 K/mm3 (142-424); Red Blood Count 4.66 M/mm3 (4.20-5.40); Red Cell Distribution Width 13.6 % (11.5-17.5); White Blood Count 10.2 K/mm3 (4.8-10.8)
[2020-07-17 08:48] LABS: Alanine Aminotransferase 48 U/L (12-78); Albumin Level 4.1 g/dl (3.5-5.0); Albumin/Globulin Ratio 1.8 (1.1-1.8); Alkaline Phosphatase 94 U/L (38-126); Anion Gap 11.1 mEq/L (5-15); Aspartate Amino Transferase 33 U/L (14-36); Bilirubin,Total 0.5 mg/dl (0.2-1.3); Blood Urea Nitrogen 18 mg/dl (7-17); Calcium 9.2 mg/dl (8.4-10.2); Carbon Dioxide 27 mmol/L (22.0-30.0); Chloride 105 mmol/L (98-107); Chol/HDL Ratio 4.5 (1-3.5); Cholesterol 112 mg/dl (140-200); Estimated Glomerular Filt Rate 72 ml/min (>60); GFR (African American) 87 ML/MIN (>60); Globulin 2.3 g/dL (1.3-3.2); Glucose 118 mg/dl (74-100); HDL Cholesterol 25 mg/dl (40-60); Potassium 4.1 mmoL/L (3.5-5.1); Sodium 139 mmol/L (136-145); Total Protein,Serum 6.4 g/dl (6.3-8.2); Triglycerides 170 mg/dl (30-150); VLDL Cholesterol 34 mg/dL (0-40)
[2020-07-17 09:00] LABS: Direct LDL Cholesterol 57.93 mg/dL (100-129)
[2020-07-17 09:18] LABS: Hemoglobin A1C 6.3 % (4.0-6.0)
[2020-07-17 09:21] LABS: Thyroid Stimulating Hormone 0.17 uIU/mL (0.465-4.68)
[2020-07-17 09:39] LABS: Vitamin B12 946 pg/mL (239-931)
== END ==
PROVIDERS: Visit Provider Internal Medicine Adolescent Medicine
DX: E11.9 Type 2 diabetes mellitus without complications (principal); E03.9 Hypothyroidism, unspecified; E78.5 Hyperlipidemia, unspecified; E53.8 Deficiency of other specified B group vitamins
CPT/HCPCS: 36415; 80053; 80061; 82607; 83036; 84443; 85025

== ENCOUNTER → 2020-11-12 11:46 | Outpatient (CLI) | payer BC, MEDICARE, SELFPAY ==
[2020-11-12 12:19] LABS: Basophils # 0.3 K/mm3 (0-0.2); Basophils % 2.3 % (0.1-2.0); Eosinophils # 0.5 K/mm3 (0.0-0.4); Eosinophils % 4.3 % (0.1-12.0); Hematocrit 42.7 % (37.0-47.0); Hemoglobin 14.1 g/dL (12.2-16.2); Lymphocytes # 4.2 K/mm3 (0.7-4.5); Lymphocytes % 37.7 % (10-50); Mean Corpuscular Hemoglobin 29.7 pg (27.0-31.2); Mean Corpuscular Volume 89.9 fl (81-99); Monocytes # 0.4 K/mm3 (0.1-1.0); Monocytes % 3.7 % (1.7-9.3); Neutrophils # 5.8 K/mm3 (1.8-7.8); Platelet Count 329 K/mm3 (142-424); Red Blood Count 4.75 M/mm3 (4.20-5.40); Red Cell Distribution Width 13.9 % (11.5-17.5); White Blood Count 11.1 K/mm3 (4.8-10.8)
[2020-11-12 12:43] LABS: Hemoglobin A1C 6.3 % (4.0-6.0)
[2020-11-12 13:11] LABS: Chloride 106 mmol/L (98-107); Sodium 142 mmol/L (136-145)
[2020-11-12 13:12] LABS: Potassium 4.2 mmoL/L (3.5-5.1)
[2020-11-12 13:14] LABS: Alanine Aminotransferase 40 U/L (12-78); Albumin Level 4.1 g/dl (3.5-5.0); Albumin/Globulin Ratio 1.6 (1.1-1.8); Alkaline Phosphatase 82 U/L (38-126); Anion Gap 14.2 mEq/L (5-15); Aspartate Amino Transferase 30 U/L (14-36); Bilirubin,Total 0.3 mg/dl (0.2-1.3); Blood Urea Nitrogen 20 mg/dl (7-17); Carbon Dioxide 26 mmol/L (22.0-30.0); Estimated Glomerular Filt Rate 62 ml/min (>60); GFR (African American) 76 ML/MIN (>60); Globulin 2.5 g/dL (1.3-3.2); Total Protein,Serum 6.6 g/dl (6.3-8.2); Triglycerides 136 mg/dl (30-150); VLDL Cholesterol 27 mg/dL (0-40)
[2020-11-12 13:15] LABS: Calcium 9.5 mg/dl (8.4-10.2); Chol/HDL Ratio 3.6 (1-3.5); Cholesterol 89 mg/dl (140-200); Glucose 113 mg/dl (74-100); HDL Cholesterol 25 mg/dl (40-60)
[2020-11-12 13:26] LABS: Direct LDL Cholesterol 41.06 mg/dL (100-129)
[2020-11-12 13:32] LABS: Triiodothryronine (T3) Uptake 28 % (23.5-40.5)
[2020-11-12 13:33] LABS: Free Thyroxine Index 3.5 ug/dL (5.93-13.13); T4 (Thyroxine) 12.6 ug/dl (5.53-11.0)
[2020-11-12 13:48] LABS: Thyroid Stimulating Hormone 1.03 uIU/mL (0.465-4.68)
[2020-11-13 08:51] LABS: Triiodothyronine (T3) Free 2.8 pg/mL (2.0-4.4)
== END ==
PROVIDERS: Visit Provider Internal Medicine Adolescent Medicine
DX: E11.9 Type 2 diabetes mellitus without complications (principal); E03.9 Hypothyroidism, unspecified; E78.5 Hyperlipidemia, unspecified; Z79.84 Long term (current) use of oral hypoglycemic drugs
CPT/HCPCS: 36415; 80053; 80061; 83036; 84436; 84443; 84479; 84481; 85025

== ENCOUNTER → 2020-12-25 07:37 | Outpatient (CLI) | payer BC, MEDICARE, SELFPAY | PROVIDERS: Visit Provider Surgery | DX: E27.8 Other specified disorders of adrenal gland (principal) | CPT/HCPCS: 36415; 82088; 82533; 84244 ==

== ENCOUNTER → 2021-02-13 07:56 | Outpatient (CLI) | payer BC, MEDICARE, SELFPAY ==
[2021-02-13 09:37] LABS: Basophils # 0.1 K/mm3 (0-0.2); Basophils % 1.8 % (0.1-2.0); Eosinophils # 0.4 K/mm3 (0.0-0.4); Eosinophils % 4.8 % (0.1-12.0); Hematocrit 41.3 % (37.0-47.0); Hemoglobin 13.1 g/dL (12.2-16.2); Lymphocytes # 3.4 K/mm3 (0.7-4.5); Lymphocytes % 46.4 % (10-50); Mean Corpuscular HGB Conc 31.7 g/dL (31.8-35.4); Mean Corpuscular Hemoglobin 28.5 pg (27.0-31.2); Monocytes # 0.5 K/mm3 (0.1-1.0); Monocytes % 6.7 % (1.7-9.3); Neutrophils % 40.3 % (37.0-80.0); Platelet Count 272 K/mm3 (142-424); Red Blood Count 4.59 M/mm3 (4.20-5.40); Red Cell Distribution Width 13.4 % (11.5-17.5); White Blood Count 7.4 K/mm3 (4.8-10.8)
[2021-02-13 09:56] LABS: Hemoglobin A1C 5.9 % (4.0-6.0)
[2021-02-13 09:57] LABS: Alanine Aminotransferase 26 U/L (12-78); Albumin/Globulin Ratio 1.7 (1.1-1.8); Alkaline Phosphatase 84 U/L (38-126); Anion Gap 12.7 mEq/L (5-15); Aspartate Amino Transferase 26 U/L (14-36); Bilirubin,Total 0.3 mg/dl (0.2-1.3); Blood Urea Nitrogen 21 mg/dl (7-17); Calcium 9.3 mg/dl (8.4-10.2); Carbon Dioxide 28 mmol/L (22.0-30.0); Chloride 99 mmol/L (98-107); Chol/HDL Ratio 3.5 (1-3.5); Cholesterol 94 mg/dl (140-200); Estimated Glomerular Filt Rate 83 ml/min (>60); GFR (African American) 101 ML/MIN (>60); Globulin 2.3 g/dL (1.3-3.2); Glucose 87 mg/dl (74-100); HDL Cholesterol 27 mg/dl (40-60); Potassium 3.7 mmoL/L (3.5-5.1); Sodium 136 mmol/L (136-145); Total Protein,Serum 6.3 g/dl (6.3-8.2); Triglycerides 79 mg/dl (30-150); VLDL Cholesterol 16 mg/dL (0-40)
[2021-02-13 10:09] LABS: Direct LDL Cholesterol 51.67 mg/dL (100-129)
[2021-02-13 10:16] LABS: Free Thyroxine Index 3.7 ug/dL (5.93-13.13); T4 (Thyroxine) 12.7 ug/dl (5.53-11.0); Triiodothryronine (T3) Uptake 29 % (23.5-40.5)
[2021-02-13 10:29] LABS: Thyroid Stimulating Hormone 3.53 uIU/mL (0.465-4.68)
== END ==
PROVIDERS: Visit Provider Internal Medicine Adolescent Medicine
DX: E11.9 Type 2 diabetes mellitus without complications (principal); E03.9 Hypothyroidism, unspecified; Z79.84 Long term (current) use of oral hypoglycemic drugs
CPT/HCPCS: 36415; 80053; 80061; 83036; 84436; 84443; 84479; 85025

== ENCOUNTER 2021-03-10 11:00 | Outpatient (RCR) | payer BC, MEDICARE, SELFPAY | END 2021-03-10 11:05 | disposition home or self-care (01) | LOC: PT 11:00 | PROVIDERS: PCP Internal Medicine Adolescent Medicine; Visit Provider Orthopaedic Surgery | DX: M25.561 Pain in right knee (principal); M25.461 Effusion, right knee; Z96.651 Presence of right artificial knee joint | CPT/HCPCS: 97010; 97014; 97016; 97110; 97140; 97163; 97164; 97760; G0283 ==

== ENCOUNTER → 2021-03-10 12:06 | Outpatient (CLI) | payer BC, MEDICARE, SELFPAY | PROVIDERS: PCP Internal Medicine Adolescent Medicine; Visit Provider Nurse Practitioner | DX: U07.1 COVID-19 (principal) | CPT/HCPCS: C9803; U0003; U0005 ==

== ENCOUNTER → 2021-04-02 08:01 | Outpatient (CLI) | payer BC, MEDICARE, SELFPAY ==
[2021-04-03 09:20] LABS: Covid-19 Nasal PCR Sendout Lex NOT DETECTED
== END ==
PROVIDERS: PCP Internal Medicine Adolescent Medicine; Visit Provider Nurse Practitioner
DX: Z20.822 Contact with and (suspected) exposure to COVID-19 (principal)
CPT/HCPCS: C9803; U0004; U0005

== ENCOUNTER 2021-06-25 11:00 | Outpatient (RCR) | payer BC, MEDICARE, SELFPAY | END 2021-06-25 11:05 | disposition home or self-care (01) | LOC: PT 11:00 | PROVIDERS: PCP Internal Medicine Adolescent Medicine; Visit Provider Orthopaedic Surgery | DX: M25.562 Pain in left knee (principal); Z96.652 Presence of left artificial knee joint | CPT/HCPCS: 97010; 97014; 97016; 97110; 97140; 97163; 97164; 97530; 97760; G0283 ==

== ENCOUNTER 2021-07-09 18:30 | Emergency (ER) | payer BC, MEDICARE, SELFPAY ==
[2021-07-09 18:31] VITALS: BP 138/88; RESP 18; TEMP 36.8; O2SAT 99; BMI 39.8
[2021-07-09 19:29] LABS: Chloride 103 mmol/L (98-107); Sodium 139 mmol/L (136-145)
[2021-07-09 19:30] LABS: Basophils # 0.1 K/mm3 (0-0.2); Basophils % 2.3 % (0.1-2.0); Eosinophils # 0.1 K/mm3 (0.0-0.4); Eosinophils % 2.3 % (0.1-12.0); Hematocrit 41.1 % (37.0-47.0); Hemoglobin 13.8 g/dL (12.2-16.2); Lymphocytes # 1.4 K/mm3 (0.7-4.5); Lymphocytes % 29.4 % (10-50); Mean Corpuscular HGB Conc 33.6 g/dL (31.8-35.4); Mean Corpuscular Volume 83.3 fl (81-99); Mean Platelet Volume 7.8 fl (7.4-10.4); Monocytes # 0.5 K/mm3 (0.1-1.0); Neutrophils # 2.6 K/mm3 (1.8-7.8); Neutrophils % 55.9 % (37.0-80.0); Platelet Count 262 K/mm3 (142-424); Red Blood Count 4.93 M/mm3 (4.20-5.40); Red Cell Distribution Width 14.4 % (11.5-17.5); White Blood Count 4.7 K/mm3 (4.8-10.8)
[2021-07-09 19:32] LABS: Alanine Aminotransferase 30 U/L (12-78); Albumin Level 4.2 g/dl (3.5-5.0); Albumin/Globulin Ratio 1.7 (1.1-1.8); Alkaline Phosphatase 91 U/L (38-126); Aspartate Amino Transferase 30 U/L (14-36); Bilirubin,Total 0.4 mg/dl (0.2-1.3); Blood Urea Nitrogen 22 mg/dl (7-17); Creatinine Clearance Estimated 87 mL/min (50-200); Estimated Glomerular Filt Rate 71 ml/min (>60); GFR (African American) 86 ML/MIN (>60); Globulin 2.5 g/dL (1.3-3.2); Total Protein,Serum 6.7 g/dl (6.3-8.2)
--- NOTE | 2021-07-09 19:32 | ECG_ITS ---
APPROVED REPORT Exam: Resting ECG HR:72 bpm ECG Measurements Heart Rate 72 AXES IA 188 P 36 QRSd 106 QRS 46 QT 409 T 19 QTc 433 Conclusion SINUS RHYTHM Low voltage with late r wave progression - old changes] ABNORMAL ECG UNCONFIRMED REPORT Electronically signed by : Ziyad Salomon MD 07/10/2021 09:49:14
[2021-07-09 19:33] LABS: Calcium 9.3 mg/dl (8.4-10.2); Glucose 108 mg/dl (74-100)
[2021-07-09 19:49] LABS: Carbon Dioxide 28 mmol/L (22.0-30.0)
--- NOTE | 2021-07-09 20:11 | XR_ITS ---
PROCEDURE INFORMATION: Exam: XR Abdomen Exam date and time: 07/09/2021 8:11 PM Age: 66 years old Clinical indication: Other: Upper abdomen pain, dizziness, post colonoscopy; Patient HX: PT did have colonoscopy today; Additional info: Upright xray to check for free air TECHNIQUE: Imaging protocol: XR of the abdomen. Views: Frontal supine view of the abdomen. 1 View. COMPARISON: CR XR CHEST PORTABLE 11/07/2019 8:34 AM FINDINGS: Gastrointestinal tract: Status post cholecystectomy. No bowel dilation. Bones/joints: Mild scoliosis. IMPRESSION: No acute findings.
--- NOTE | 2021-07-09 20:47 | HMH.EDGENADL ---
ED Disposition Clinical Impression: Hypokalemia, Dehydration Disposition: Home, Self-Care Condition on Discharge: Good Instructions: DI for Diarrhea and Traveler's Diarrhea -- Adult, DI for Diarrhea and Traveler's Diarrhea -- Child, DI for Nausea -- Adult, DI for Nausea -- Child Additional Instructions: Take potassium supplements as directed, follow-up with your PCP within the next week for repeat BMP. Return with new or concerning symptoms. Drink plenty fluids, stay hydrated. Prescriptions: Potassium Chloride [Klor-Con] 20 meq PO DAILY 7 Days #7 packet Transmission Status: Pending to [facility]/pharmacy #[id number] Referrals: Ziyad Salomon MD [Primary Care Provider] - - Critical Care Critical Care Time: No Attestation: On 07/09/21, the high probability of a clinically significant, sudden or life threatening deterioration of the following system(s) required my full and direct attention, intervention and personal management. The time I documented below is in addition to time spent performing reported procedures but includes the following listed in this critical care notation. Medical Decision Making - Medical Records Medical records reviewed: Yes: I reviewed the patient's medical records. - Gabriele Inquiry Pt receiving controlled substance: No Vital Signs: 07/09/21 18:31 Temperature 98.3 F Temperature Source Oral Respiratory Rate 18 Blood Pressure [Right Arm] 138/88 Blood Pressure Mean [Right Arm] 104 Blood Pressure Source [Right Arm] Automatic Cuff Blood Pressure Position [Right Arm] Sitting 02 Sat by Pulse Oximetry 99 Oxygen Delivery Method Room Air - Lab Data Lab Results 07/09/21 19:10: WBC 4.7 L, RBC 4.93, Hgb 13.8, Hct 41.1, MCV 83.3, MCH 28.0, MCHC 33.6, RDW 14.4, Plt Count 262, MPV 7.8, Neut % (Auto) 55.9, Lymph % (Auto) 29.4, [place] % (Auto) 10.0 H, Eos % (Auto) 2.3, Baso % (Auto) 2.3 H, Neut # (Auto) 2.6, Lymph # (Auto) 1.4, [place] # (Auto) 0.5, Eos # (Auto) 0.1, Baso # (Auto) 0.1 07/09/21 19:10: Sodium 139, Potassium 3.0 L, Chloride 103, Carbon Dioxide 28, Anion Gap 11.0, BUN 22 H, Creatinine 0.80, Estimated Creat Clear 87, Estimated GFR 71, Est GFR ( Amer) 86, Glucose 108 H, Calcium 9.3, Total Bilirubin 0.4, AST 30, ALT 30, Alkaline Phosphatase 91, Total Protein 6.7, Albumin 4.2, Globulin 2.5, Albumin/Globulin Ratio 1.7 Result diagrams: 07/09/21 19:10 07/09/21 19:10 Orders (Tests/Meds): ED MEDICATIONS Generic Name Dose Route Start Last Admin Trade Name Freq PRN Reason Stop Dose Admin Sodium Chloride 1,000 mls @ 999 mls/hr 07/09/21 19:30 07/09/21 19:20 Sod Chlor 0.9% 1000ml Bag IV 07/09/21 20:30 999 mls/hr .Q1H1M SILVIA Administration Discontinued Medications Generic Name Dose Route Start Last Admin Trade Name Freq PRN Reason Stop Dose Admin Ondansetron HCl 4 mg 07/09/21 19:26 07/09/21 19:31 Ondansetron 4mg/2ml Vial IV 07/09/21 19:27 4 mg ONCE ONE Administration Potassium Chloride 40 meq 07/09/21 20:30 07/09/21 21:27 Potassium Chloride 20meq Tab PO 07/09/21 20:31 40 meq ONCE ONE Administration - Radiology Data #1 Image(s): Abdomen Image Reviewed: Yes I reviewed the patient's radiology results FINDINGS: Gastrointestinal tract: Status post cholecystectomy. No bowel dilation. Bones/joints: Mild scoliosis. IMPRESSION: No acute findings. Medical Decision Narrative: 66-year-old female with history of gastric cancer complicated with anal fissure status post colonoscopy earlier today who is presenting to the ED with generalized dizziness, generalized abdominal pain. Differential diagnoses include postoperative complications, side effects propofol, constipation, dehydration, dizziness, CVA. Given this work-up will include physical exam, CMP, CBC, upright KUB. Vital signs are currently stable, patient is receiving 1 L IV fluids. Give Zofran for nausea, meclizine for her dizziness. Feel this is most likely related to her recent proc
[2021-07-09 22:34] VITALS: BP 106/62; PULSE 78; RESP 18; TEMP 36.7; O2SAT 98
== END 2021-07-09 22:39 | disposition home or self-care (01) ==
PROVIDERS: Emergency Provider Student in an Organized Health Care Education/Training Program; PCP Internal Medicine Adolescent Medicine
DX: E87.6 Hypokalemia (principal); E86.0 Dehydration; Z98.890 Other specified postprocedural states; E11.9 Type 2 diabetes mellitus without complications; E78.5 Hyperlipidemia, unspecified; I10 Essential (primary) hypertension; Z85.028 Personal history of other malignant neoplasm of stomach
CPT/HCPCS: 74018; 80053; 85025; 93005; 96365; 96375; 99284; J2405

== ENCOUNTER → 2021-10-28 14:14 | Outpatient (CLI) | payer MEDICARE, SELFPAY ==
[2021-10-28 15:11] LABS: Basophils # 0.1 K/mm3 (0-0.2); Basophils % 1.4 % (0.1-2.0); Eosinophils # 1.4 K/mm3 (0.0-0.4); Eosinophils % 19.3 % (0.1-12.0); Hematocrit 42.6 % (37.0-47.0); Hemoglobin 13.8 g/dL (12.2-16.2); Lymphocytes # 1.6 K/mm3 (0.7-4.5); Lymphocytes % 21.5 % (10-50); Mean Corpuscular HGB Conc 32.5 g/dL (31.8-35.4); Mean Corpuscular Hemoglobin 28.3 pg (27.0-31.2); Mean Platelet Volume 7.6 fl (7.4-10.4); Monocytes # 0.4 K/mm3 (0.1-1.0); Monocytes % 5.8 % (1.7-9.3); Neutrophils # 3.9 K/mm3 (1.8-7.8); Neutrophils % 51.9 % (37.0-80.0); Platelet Count 274 K/mm3 (142-424); Red Cell Distribution Width 14.6 % (11.5-17.5); White Blood Count 7.5 K/mm3 (4.8-10.8)
[2021-10-28 15:42] LABS: C-Reactive Protein 3.3 mg/L (0-4)
[2021-10-30 09:26] LABS: Thyroid Peroxidase Antibodies 14 IU/mL (0-34)
[2021-11-05 23:00] LABS: Immunoglobulin E, Total 72 IU/mL (6-495)
[2021-11-13 17:07] LABS: Chromogranin A 87.3
== END ==
PROVIDERS: PCP Internal Medicine Adolescent Medicine; Visit Provider Internal Medicine
DX: R23.2 Flushing (principal); L50.8 Other urticaria; D89.44 Hereditary alpha tryptasemia; R76.8 Other specified abnormal immunological findings in serum
CPT/HCPCS: 36415; 82785; 83520; 85025; 86003; 86140; 86352; 86376

== ENCOUNTER → 2021-11-03 08:56 | Outpatient (CLI) | payer MEDICARE, SELFPAY ==
[2021-11-12 12:44] LABS: 5-HIAA, Urine 1.9 mg/L (Undefined)
[2021-12-07 11:04] LABS: N-Methylhistamine 149
[2021-12-14 12:23] LABS: Creatinine, Ur 24hr 1645; Creatinine, Urine 47
== END ==
PROVIDERS: PCP Internal Medicine Adolescent Medicine; Visit Provider Internal Medicine
DX: D89.44 Hereditary alpha tryptasemia (principal); R23.2 Flushing
CPT/HCPCS: 82542; 83497

== ENCOUNTER → 2021-12-01 07:57 | Outpatient (CLI) | payer MEDICARE, SELFPAY ==
[2021-12-01 08:20] LABS: Basophils # 0.1 K/mm3 (0-0.2); Basophils % 1.5 % (0.1-2.0); Eosinophils # 0.3 K/mm3 (0.0-0.4); Eosinophils % 5.7 % (0.1-12.0); Hematocrit 41.8 % (37.0-47.0); Hemoglobin 13.7 g/dL (12.2-16.2); Lymphocytes # 1.4 K/mm3 (0.7-4.5); Lymphocytes % 24.6 % (10-50); Mean Corpuscular HGB Conc 32.7 g/dL (31.8-35.4); Mean Corpuscular Hemoglobin 28.4 pg (27.0-31.2); Mean Corpuscular Volume 87.1 fl (81-99); Mean Platelet Volume 7.6 fl (7.4-10.4); Monocytes # 0.2 K/mm3 (0.1-1.0); Monocytes % 4.2 % (1.7-9.3); Neutrophils # 3.6 K/mm3 (1.8-7.8); Neutrophils % 63.9 % (37.0-80.0); Platelet Count 268 K/mm3 (142-424); White Blood Count 5.6 K/mm3 (4.8-10.8)
[2021-12-01 09:13] LABS: Chloride 102 mmol/L (98-107); Potassium 4.1 mmoL/L (3.5-5.1); Sodium 141 mmol/L (136-145)
[2021-12-01 09:15] LABS: Alanine Aminotransferase 27 U/L (12-78); Aspartate Amino Transferase 28 U/L (14-36); Blood Urea Nitrogen 25 mg/dl (7-17); Estimated Glomerular Filt Rate 83 ml/min (>60); GFR (African American) 101 ML/MIN (>60)
[2021-12-01 09:16] LABS: Albumin Level 4.2 g/dl (3.5-5.0); Albumin/Globulin Ratio 1.8 (1.1-1.8); Alkaline Phosphatase 119 U/L (38-126); Anion Gap 17.1 mEq/L (5-15); Bilirubin,Total 0.3 mg/dl (0.2-1.3); Carbon Dioxide 26 mmol/L (22.0-30.0); Chol/HDL Ratio 3.9 (1-3.5); Cholesterol 112 mg/dl (140-200); Globulin 2.3 g/dL (1.3-3.2); Glucose 124 mg/dl (74-100); HDL Cholesterol 29 mg/dl (40-60); Total Protein,Serum 6.5 g/dl (6.3-8.2); Triglycerides 120 mg/dl (30-150); VLDL Cholesterol 24 mg/dL (0-40)
[2021-12-01 09:18] LABS: Bilirubin,Direct 0.1 mg/dl (0.0-0.4); Bilirubin,Indirect 0.2 mg/dL (0.0-0.9)
[2021-12-01 09:28] LABS: Direct LDL Cholesterol 56.52 mg/dL (100-129)
[2021-12-01 09:34] LABS: Free Thyroxine Index 4.3 ug/dL (5.93-13.13); Triiodothryronine (T3) Uptake 31 % (23.5-40.5)
[2021-12-01 09:48] LABS: Hemoglobin A1C 6.3 % (4.0-6.0); Thyroid Stimulating Hormone 1.15 uIU/mL (0.465-4.68)
== END ==
PROVIDERS: PCP Internal Medicine Adolescent Medicine; Visit Provider Internal Medicine Interventional Cardiology
DX: E11.9 Type 2 diabetes mellitus without complications (principal); E78.00 Pure hypercholesterolemia, unspecified; E03.9 Hypothyroidism, unspecified; E78.5 Hyperlipidemia, unspecified; Z79.84 Long term (current) use of oral hypoglycemic drugs
CPT/HCPCS: 36415; 80053; 80061; 82248; 83036; 84436; 84443; 84479; 85025

== ENCOUNTER → 2022-03-15 07:49 | Outpatient (CLI) | payer MEDICARE, SELFPAY ==
[2022-03-15 08:20] LABS: Microalbumin/Creatinine Ratio 17.4
[2022-03-15 08:22] LABS: Creatinine,Urine Random 166 mg/dL (Not Estab.)
[2022-03-15 08:23] LABS: Hemoglobin A1C 6.2 % (4.0-6.0)
[2022-03-15 09:11] LABS: Anion Gap 14.9 mEq/L (5-15); Blood Urea Nitrogen 24 mg/dl (7-17); Calcium 8.8 mg/dl (8.4-10.2); Carbon Dioxide 25 mmol/L (22.0-30.0); Chloride 103 mmol/L (98-107); Estimated Glomerular Filt Rate 71 ml/min (>60); GFR (African American) 86 ML/MIN (>60); Glucose 117 mg/dl (74-100); Potassium 3.9 mmoL/L (3.5-5.1); Sodium 139 mmol/L (136-145)
== END ==
PROVIDERS: PCP Internal Medicine Adolescent Medicine; Visit Provider Internal Medicine Interventional Cardiology
DX: E11.9 Type 2 diabetes mellitus without complications (principal); Z79.84 Long term (current) use of oral hypoglycemic drugs
CPT/HCPCS: 36415; 80048; 82043; 82570; 83036

== ENCOUNTER → 2022-04-02 08:37 | Outpatient (CLI) | payer MEDICARE, SELFPAY ==
[2022-04-02 08:54] LABS: Basophils # 0.2 K/mm3 (0-0.2); Eosinophils # 0.3 K/mm3 (0.0-0.4); Eosinophils % 3.8 % (0.1-12.0); Hematocrit 42.9 % (37.0-47.0); Hemoglobin 14.2 g/dL (12.2-16.2); Lymphocytes # 1.8 K/mm3 (0.7-4.5); Lymphocytes % 24.4 % (10-50); Mean Corpuscular HGB Conc 33.1 g/dL (31.8-35.4); Mean Corpuscular Hemoglobin 28.5 pg (27.0-31.2); Mean Corpuscular Volume 86.1 fl (81-99); Mean Platelet Volume 7.9 fl (7.4-10.4); Monocytes # 0.4 K/mm3 (0.1-1.0); Monocytes % 5.1 % (1.7-9.3); Neutrophils # 4.8 K/mm3 (1.8-7.8); Neutrophils % 64.7 % (37.0-80.0); Platelet Count 285 K/mm3 (142-424); Red Blood Count 4.99 M/mm3 (4.20-5.40); White Blood Count 7.5 K/mm3 (4.8-10.8)
[2022-04-02 09:25] LABS: Alanine Aminotransferase 26 U/L (12-78); Albumin Level 4.5 g/dl (3.5-5.0); Albumin/Globulin Ratio 1.8 (1.1-1.8); Alkaline Phosphatase 96 U/L (38-126); Anion Gap 11.4 mEq/L (5-15); Aspartate Amino Transferase 24 U/L (14-36); Bilirubin,Total 0.6 mg/dl (0.2-1.3); Blood Urea Nitrogen 23 mg/dl (7-17); Calcium 9.7 mg/dl (8.4-10.2); Carbon Dioxide 30 mmol/L (22.0-30.0); Chloride 104 mmol/L (98-107); Chol/HDL Ratio 3.7 (1-3.5); Cholesterol 108 mg/dl (140-200); Estimated Glomerular Filt Rate 71 ml/min (>60); GFR (African American) 86 ML/MIN (>60); Globulin 2.5 g/dL (1.3-3.2); Glucose 121 mg/dl (74-100); HDL Cholesterol 29 mg/dl (40-60); Potassium 4.4 mmoL/L (3.5-5.1); Sodium 141 mmol/L (136-145); Triglycerides 139 mg/dl (30-150); VLDL Cholesterol 28 mg/dL (0-40)
[2022-04-02 09:35] LABS: Direct LDL Cholesterol 58.18 mg/dL (100-129)
[2022-04-02 09:42] LABS: Free Thyroxine Index 3.8 ug/dL (5.93-13.13); T4 (Thyroxine) 12.6 ug/dl (5.53-11.0); Triiodothryronine (T3) Uptake 30 % (23.5-40.5)
[2022-04-02 09:55] LABS: Thyroid Stimulating Hormone 0.75 uIU/mL (0.465-4.68)
== END ==
PROVIDERS: PCP Internal Medicine Adolescent Medicine; Visit Provider Internal Medicine Adolescent Medicine
DX: E11.9 Type 2 diabetes mellitus without complications (principal); E03.9 Hypothyroidism, unspecified; E78.5 Hyperlipidemia, unspecified; Z79.84 Long term (current) use of oral hypoglycemic drugs
CPT/HCPCS: 36415; 80053; 80061; 83036; 84436; 84443; 84479; 85025

== ENCOUNTER → 2022-05-03 08:32 | Outpatient (CLI) | payer MEDICARE, SELFPAY ==
[2022-05-03 10:12] LABS: Anion Gap 12.3 mEq/L (5-15); Blood Urea Nitrogen 28 mg/dl (7-17); Calcium 8.6 mg/dl (8.4-10.2); Carbon Dioxide 26 mmol/L (22.0-30.0); Chloride 102 mmol/L (98-107); Estimated Glomerular Filt Rate 62 ml/min (>60); GFR (African American) 75 ML/MIN (>60); Glucose 106 mg/dl (74-100); Potassium 4.3 mmoL/L (3.5-5.1); Sodium 136 mmol/L (136-145)
== END ==
PROVIDERS: PCP Internal Medicine Adolescent Medicine; Visit Provider Internal Medicine Interventional Cardiology
DX: E11.9 Type 2 diabetes mellitus without complications (principal); Z79.84 Long term (current) use of oral hypoglycemic drugs
CPT/HCPCS: 36415; 80048

== ENCOUNTER → 2022-06-06 08:02 | Outpatient (CLI) | payer MEDICARE, SELFPAY ==
[2022-06-06 08:51] LABS: Chloride 100 mmol/L (98-107); Sodium 139 mmol/L (136-145)
[2022-06-06 08:54] LABS: Blood Urea Nitrogen 22 mg/dl (7-17); Calcium 9.5 mg/dl (8.4-10.2); Carbon Dioxide 30 mmol/L (22.0-30.0); Estimated Glomerular Filt Rate 71 ml/min (>60); GFR (African American) 86 ML/MIN (>60); Glucose 116 mg/dl (74-100)
== END ==
PROVIDERS: Physician Assistant; PCP Internal Medicine Adolescent Medicine; Visit Provider Internal Medicine Interventional Cardiology
DX: E11.9 Type 2 diabetes mellitus without complications (principal); Z79.84 Long term (current) use of oral hypoglycemic drugs
CPT/HCPCS: 36415; 80048

== ENCOUNTER → 2022-07-04 08:40 | Outpatient (CLI) | payer MEDICARE, SELFPAY ==
[2022-07-04 09:29] LABS: Basophils # 0.1 K/mm3 (0-0.2); Basophils % 0.9 % (0.1-2.0); Eosinophils # 0.3 K/mm3 (0.0-0.4); Hematocrit 41.9 % (37.0-47.0); Hemoglobin 13.6 g/dL (12.2-16.2); Lymphocytes # 1.8 K/mm3 (0.7-4.5); Lymphocytes % 26.5 % (10-50); Mean Corpuscular HGB Conc 32.5 g/dL (31.8-35.4); Mean Corpuscular Hemoglobin 28.5 pg (27.0-31.2); Mean Corpuscular Volume 87.6 fl (81-99); Mean Platelet Volume 7.9 fl (7.4-10.4); Monocytes # 0.4 K/mm3 (0.1-1.0); Monocytes % 5.6 % (1.7-9.3); Neutrophils # 4.4 K/mm3 (1.8-7.8); Neutrophils % 62.9 % (37.0-80.0); Platelet Count 270 K/mm3 (142-424); Red Blood Count 4.78 M/mm3 (4.20-5.40); Red Cell Distribution Width 14.1 % (11.5-17.5); White Blood Count 6.9 K/mm3 (4.8-10.8)
[2022-07-04 09:51] LABS: Chloride 102 mmol/L (98-107); Potassium 4.6 mmoL/L (3.5-5.1)
[2022-07-04 09:53] LABS: Alanine Aminotransferase 33 U/L (12-78); Aspartate Amino Transferase 29 U/L (14-36); Bilirubin,Unconjugated 0.4 mg/dL (0.0-1.1); Blood Urea Nitrogen 21 mg/dl (7-17); Carbon Dioxide 25 mmol/L (22.0-30.0); Estimated Glomerular Filt Rate 71 ml/min (>60); GFR (African American) 86 ML/MIN (>60)
[2022-07-04 09:54] LABS: Alkaline Phosphatase 90 U/L (38-126); Bilirubin,Indirect 0.3 mg/dL (0.0-0.9); Bilirubin,Total 0.3 mg/dl (0.2-1.3); Calcium 9.5 mg/dl (8.4-10.2); Chol/HDL Ratio 3.4 (1-3.5); Cholesterol 94 mg/dl (140-200); Glucose 105 mg/dl (74-100); HDL Cholesterol 28 mg/dl (40-60); Total Protein,Serum 6.4 g/dl (6.3-8.2); Triglycerides 193 mg/dl (30-150); VLDL Cholesterol 39 mg/dL (0-40)
[2022-07-04 10:06] LABS: Direct LDL Cholesterol 49.72 mg/dL (100-129)
[2022-07-04 12:20] LABS: Anion Gap 14.6 mEq/L (5-15); Sodium 137 mmol/L (136-145)
== END ==
PROVIDERS: PCP Internal Medicine Adolescent Medicine; Visit Provider Nurse Practitioner Family
DX: E78.00 Pure hypercholesterolemia, unspecified (principal); I10 Essential (primary) hypertension
CPT/HCPCS: 36415; 80048; 80061; 80076; 85025

== ENCOUNTER → 2022-09-24 08:20 | Outpatient (CLI) | payer MEDICARE, SELFPAY ==
[2022-09-24 09:06] LABS: Basophils # 0.1 K/mm3 (0-0.2); Eosinophils # 0.2 K/mm3 (0.0-0.4); Eosinophils % 3.6 % (0.1-12.0); Hematocrit 40.8 % (37.0-47.0); Hemoglobin 13.2 g/dL (12.2-16.2); Lymphocytes # 1.5 K/mm3 (0.7-4.5); Lymphocytes % 26.1 % (10-50); Mean Corpuscular HGB Conc 32.5 g/dL (31.8-35.4); Mean Corpuscular Hemoglobin 28.4 pg (27.0-31.2); Mean Corpuscular Volume 87.4 fl (81-99); Mean Platelet Volume 7.5 fl (7.4-10.4); Monocytes # 0.3 K/mm3 (0.1-1.0); Monocytes % 5.1 % (1.7-9.3); Neutrophils # 3.7 K/mm3 (1.8-7.8); Neutrophils % 64.3 % (37.0-80.0); Platelet Count 244 K/mm3 (142-424); Red Blood Count 4.67 M/mm3 (4.20-5.40); Red Cell Distribution Width 13.5 % (11.5-17.5); White Blood Count 5.7 K/mm3 (4.8-10.8)
[2022-09-24 09:07] LABS: Hemoglobin A1C 5.8 % (4.0-6.0)
[2022-09-24 09:12] LABS: Chloride 102 mmol/L (98-107)
[2022-09-24 09:13] LABS: Potassium 4.5 mmoL/L (3.5-5.1); Sodium 137 mmol/L (136-145)
[2022-09-24 09:15] LABS: Alanine Aminotransferase 29 U/L (12-78); Alkaline Phosphatase 87 U/L (38-126); Anion Gap 13.5 mEq/L (5-15); Aspartate Amino Transferase 25 U/L (14-36); Bilirubin,Total 0.4 mg/dl (0.2-1.3); Blood Urea Nitrogen 24 mg/dl (7-17); Carbon Dioxide 26 mmol/L (22.0-30.0); Cholesterol 74 mg/dl (140-200); Estimated Glomerular Filt Rate 62 ml/min (>60); GFR (African American) 75 ML/MIN (>60); Triglycerides 148 mg/dl (30-150); VLDL Cholesterol 30 mg/dL (0-40)
[2022-09-24 09:16] LABS: Albumin/Globulin Ratio 1.7 (1.1-1.8); Calcium 9.7 mg/dl (8.4-10.2); Chol/HDL Ratio 4.1 (1-3.5); Globulin 2.3 g/dL (1.3-3.2); Glucose 104 mg/dl (74-100); HDL Cholesterol 18 mg/dl (40-60); Total Protein,Serum 6.3 g/dl (6.3-8.2)
[2022-09-24 09:27] LABS: Direct LDL Cholesterol 34.72 mg/dL (100-129)
[2022-09-24 09:33] LABS: Triiodothryronine (T3) Uptake 31 % (23.5-40.5)
[2022-09-24 09:34] LABS: Free Thyroxine Index 4.9 ug/dL (5.93-13.13); T4 (Thyroxine) 15.7 ug/dl (5.53-11.0)
[2022-09-24 09:47] LABS: Thyroid Stimulating Hormone 0.32 uIU/mL (0.465-4.68); Thyroid Stimulating Hormone 0.33 uIU/mL (0.465-4.68)
== END ==
PROVIDERS: PCP Internal Medicine Adolescent Medicine; Visit Provider Internal Medicine Adolescent Medicine
DX: E11.9 Type 2 diabetes mellitus without complications (principal); E03.9 Hypothyroidism, unspecified; E78.5 Hyperlipidemia, unspecified; Z79.84 Long term (current) use of oral hypoglycemic drugs
CPT/HCPCS: 36415; 80053; 80061; 83036; 84436; 84443; 84479; 85025

== ENCOUNTER → 2022-11-05 08:05 | Outpatient (CLI) | payer MEDICARE, SELFPAY ==
[2022-11-05 08:56] LABS: Hemoglobin A1C 5.8 % (4.0-6.0)
[2022-11-05 09:09] LABS: Chloride 104 mmol/L (98-107)
[2022-11-05 09:10] LABS: Potassium 4.6 mmoL/L (3.5-5.1); Sodium 138 mmol/L (136-145)
[2022-11-05 09:12] LABS: Alanine Aminotransferase 35 U/L (12-78); Alkaline Phosphatase 68 U/L (38-126); Anion Gap 15.6 mEq/L (5-15); Aspartate Amino Transferase 25 U/L (14-36); Bilirubin,Direct 0.2 mg/dl (0.0-0.4); Bilirubin,Indirect 0.3 mg/dL (0.0-0.9); Bilirubin,Total 0.5 mg/dl (0.2-1.3); Bilirubin,Unconjugated 0.3 mg/dL (0.0-1.1); Blood Urea Nitrogen 40 mg/dl (7-17); Carbon Dioxide 23 mmol/L (22.0-30.0); Cholesterol 76 mg/dl (140-200); Estimated Glomerular Filt Rate 55 ml/min (>60); GFR (African American) 67 ML/MIN (>60); Triglycerides 143 mg/dl (30-150); VLDL Cholesterol 29 mg/dL (0-40)
[2022-11-05 09:13] LABS: Albumin Level 3.8 g/dl (3.5-5.0); Glucose 102 mg/dl (74-100); HDL Cholesterol 19 mg/dl (40-60); Total Protein,Serum 5.9 g/dl (6.3-8.2)
[2022-11-05 09:24] LABS: Direct LDL Cholesterol 40.88 mg/dL (100-129)
[2022-11-05 09:27] LABS: Free T4 (Free Thyroxine) 1.54 ng/dl (0.78-2.19)
[2022-11-05 09:42] LABS: Thyroid Stimulating Hormone 0.55 uIU/mL (0.465-4.68)
[2022-11-06 11:33] LABS: Triiodothyronine (T3) Total 68 ng/dL (71-180)
== END ==
PROVIDERS: PCP Internal Medicine Adolescent Medicine; Visit Provider Internal Medicine Interventional Cardiology
DX: E78.00 Pure hypercholesterolemia, unspecified (principal); R53.83 Other fatigue; E11.9 Type 2 diabetes mellitus without complications; Z79.84 Long term (current) use of oral hypoglycemic drugs
CPT/HCPCS: 36415; 80048; 80061; 80076; 83036; 84439; 84443; 84480

== ENCOUNTER → 2022-12-03 08:08 | Outpatient (CLI) | payer MEDICARE, SELFPAY ==
[2022-12-03 09:40] LABS: Anion Gap 15.7 mEq/L (5-15); Blood Urea Nitrogen 25 mg/dl (7-17); Calcium 9.6 mg/dl (8.4-10.2); Carbon Dioxide 28 mmol/L (22.0-30.0); Chloride 100 mmol/L (98-107); Estimated Glomerular Filt Rate 62 ml/min (>60); GFR (African American) 75 ML/MIN (>60); Glucose 98 mg/dl (74-100); Potassium 4.7 mmoL/L (3.5-5.1); Sodium 139 mmol/L (136-145)
== END ==
PROVIDERS: PCP Internal Medicine Adolescent Medicine; Visit Provider Internal Medicine Interventional Cardiology
DX: R94.4 Abnormal results of kidney function studies (principal)
CPT/HCPCS: 36415; 80048

== ENCOUNTER 2023-03-22 02:10 | Observation (INO) | payer MEDICARE, SELFPAY ==
[2023-03-22] VITALS (41 sets, daily range): BP systolic 75–124; BP diastolic 41–90; PULSE 80–166; RESP 12–21; TEMP 36.4–37.3; O2SAT 95–100; BMI 37.0; BMI 38.0
--- NOTE | 2023-03-22 02:32 | ECG_ITS ---
APPROVED REPORT Exam: Resting ECG HR:166 bpm ECG Measurements Heart Rate 166 AXES QRSd 106 QRS 55 QT 268 T -71 QTc 359 Conclusion ATRIAL FIBRILLATION WITH RAPID VENTRICULAR RESPONSE LOW QRS VOLTAGE IN PRECORDIAL LEADS [QRS DEFLECTION < 1.0 mV IN CHEST LEADS] ST DEVIATION AND MODERATE T-WAVE ABNORMALITY, CONSIDER LATERAL ISCHEMIA [-0.1+ mV T-WAVE IN I/aVL/V5/V6] ST DEVIATION AND MODERATE T-WAVE ABNORMALITY, CONSIDER INFERIOR ISCHEMIA [-0.1+ mV T-WAVE IN II/aVF] CRITICAL TEST RESULT UNCONFIRMED REPORT Electronically signed by : Ziyad Salomon MD 03/22/2023 21:46:17
[2023-03-22] MEDS: METOPROLOL TARTRATE 5MG/5ML VIAL 5 MG IV ×2 (02:36→02:53)
[2023-03-22 02:38] LABS: Basophils # 0.2 K/mm3 (0-0.2); Basophils % 1.1 % (0.1-2.0); Eosinophils # 0.4 K/mm3 (0.0-0.4); Eosinophils % 3.3 % (0.1-12.0); Hematocrit 43.8 % (37.0-47.0); Hemoglobin 14.9 g/dL (12.2-16.2); Lymphocytes # 2.4 K/mm3 (0.7-4.5); Lymphocytes % 18.3 % (10-50); Mean Corpuscular HGB Conc 34.1 g/dL (31.8-35.4); Mean Corpuscular Hemoglobin 30.1 pg (27.0-31.2); Mean Corpuscular Volume 88.2 fl (81-99); Mean Platelet Volume 8.3 fl (7.4-10.4); Monocytes # 0.6 K/mm3 (0.1-1.0); Monocytes % 4.8 % (1.7-9.3); Neutrophils # 9.4 K/mm3 (1.8-7.8); Neutrophils % 72.3 % (37.0-80.0); Platelet Count 263 K/mm3 (142-424); Red Blood Count 4.96 M/mm3 (4.20-5.40); Red Cell Distribution Width 13.4 % (11.5-17.5)
[2023-03-22 02:45] LABS: Alanine Aminotransferase 32 U/L (12-78); Albumin Level 4.4 g/dl (3.5-5.0); Alkaline Phosphatase 72 U/L (38-126); Anion Gap 14.9 mEq/L (5-15); Aspartate Amino Transferase 30 U/L (14-36); Bilirubin,Total 0.5 mg/dl (0.2-1.3); Blood Urea Nitrogen 33 mg/dl (7-17); Calcium 9.2 mg/dl (8.4-10.2); Carbon Dioxide 27 mmol/L (22.0-30.0); Chloride 99 mmol/L (98-107); Creatinine Clearance Estimated 72 mL/min (50-200); Estimated Glomerular Filt Rate 49 ml/min (>60); GFR (African American) 60 ML/MIN (>60); Globulin 2.2 g/dL (1.3-3.2); Glucose 131 mg/dl (74-100); Potassium 3.9 mmoL/L (3.5-5.1); Sodium 137 mmol/L (136-145); Total Protein,Serum 6.6 g/dl (6.3-8.2)
[2023-03-22 02:47] LABS: Magnesium 1.8 mg/dl (1.6-2.3)
[2023-03-22] MEDS: LACTATED RINGERS 1000ML 1,000 ML 999 ML IV (02:49)
[2023-03-22 02:50] LABS: D-Dimer 0.65 ug/mL (0.0-0.5)
[2023-03-22 02:57] LABS: NT Pro Brain Natriuretic Pep. < 20.0 pg/mL (0-125)
[2023-03-22 03:01] LABS: Troponin I < 0.01 ng/ml (0.00-0.034)
[2023-03-22 03:04] LABS: T4 (Thyroxine) 14.6 ug/dl (5.53-11.0)
--- NOTE | 2023-03-22 03:12 | ECG_ITS ---
APPROVED REPORT Exam: Resting ECG HR:103 bpm ECG Measurements Heart Rate 103 AXES WA 244 P 53 QRSd 95 QRS 46 QT 339 T 21 QTc 399 Conclusion SINUS TACHYCARDIA WITH FIRST DEGREE AV BLOCK LOW QRS VOLTAGE IN PRECORDIAL LEADS [QRS DEFLECTION < 1.0 mV IN CHEST LEADS] ABNORMAL ECG INTERPRETATION BASED ON A DEFAULT AGE OF 40 YEARS UNCONFIRMED REPORT Electronically signed by : Ziyad Salomon MD 03/22/2023 21:46:10
--- NOTE | 2023-03-22 03:14 | PC.NURSE ---
synchronized cardioversion 0309 etomidate 10mg 0312 100J synchronized cardioversion 0312- sinus tach 101 bpm. BP 91/63
[2023-03-22 03:18] LABS: Thyroid Stimulating Hormone 0.21 uIU/mL (0.465-4.68)
--- NOTE | 2023-03-22 03:19 | CT_ITS ---
PROCEDURE INFORMATION: Exam: CTA Chest With Contrast Exam date and time: 03/22/2023 3:59 AM Age: 67 years old Clinical indication: Other: Elevated d-dimer; Additional info: New afib, positive dimer TECHNIQUE: Imaging protocol: Computed tomographic angiography of the chest with contrast. Exam focused on the arteries. 3D rendering (Not supervised by radiologist): MIP and/or 3D reconstructed images were created by the technologist. Radiation optimization: All CT scans at this facility use at least one of these dose optimization techniques: automated exposure control; mA and/or kV adjustment per patient size (includes targeted exams where dose is matched to clinical indication); or iterative reconstruction. Contrast material: ISOVUE; Contrast volume: 70 ml; Contrast route: INTRAVENOUS (IV); COMPARISON: CR XR CHEST PORTABLE 11/07/2019 8:34 AM FINDINGS: Pulmonary arteries: Normal. No pulmonary emboli. Aorta: Unremarkable. No aortic aneurysm. No aortic dissection. Lungs: A 4 mm subpleural calcified granuloma is noted in the right middle lobe just below the minor fissure and adjacent to the major fissure. Vague mosaic ground-glass attenuation is noted mainly in the lower lobes and lingula. Pleural spaces: Unremarkable. No pneumothorax. No pleural effusion. Heart: Unremarkable. No cardiomegaly. No pericardial effusion. Coronary arteries: There is no coronary artery calcification. Lymph nodes: Calcific mediastinal and hilar lymphadenopathy is noted. Bones/joints: Degenerative changes are noted in the bones. Soft tissues: Unremarkable. IMPRESSION: No evidence for pulmonary embolism. 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 Vague ground-glass interstitial disease in the lungs which is nonspecific requiring clinical correlation.
[2023-03-22] MEDS: ETOMIDATE 40MG/20ML VIAL 10 MG IV (03:28)
--- NOTE | 2023-03-22 03:31 | ED_ITS ---
Discharge Plan Disposition Patient Disposition: Admitted Chief Complaint: Arrhythmia/Palpitations Prescriptions Prescriptions: No Action atorvastatin 40 MG tablet 40 mg PO DAILY metformin 500 MG tablet 500 mg PO BID fexofenadine 180 MG tablet 180 mg PO DAILY aspirin 81 MG tablet,delayed release (DR/EC) 81 mg PO DAILY levothyroxine [Synthroid] 150 MCG tablet 150 mcg PO DAILY meloxicam [Mobic] 15 MG tablet 15 mg PO DAILY carvedilol 12.5 mg tablet 12.5 mg PO BID Patient Comments: TAKE 1 TABLET BY MOUTH TWICE A DAY cyanocobalamin (vitamin B-12) [Vitamin B-12] 1,000 mcg tablet 1,000 mcg PO DAILY Patient Comments: TAKE 1 TABLET BY MOUTH EVERY DAY FOR 90 DAYS Edarbyclor 40-12.5 mg tablet 1 tab PO DAILY Patient Comments: TAKE 1 TABLET BY MOUTH EVERY DAY Jardiance 10 mg tablet 10 mg PO DAILY Patient Comments: TAKE 1 TABLET BY MOUTH EVERY MORNING Kerendia 20 mg tablet 20 mg PO DAILY Patient Comments: TAKE 1 TABLET BY MOUTH EVERY DAY Referrals Follow up/Referrals: Provider,Referral, MD [Referring] - See instructions Clinical Impressions Clinical Impression: Atrial fibrillation with rapid ventricular response, Acute hypotension Discharge ED Provider: Galdino Chan Adult HPI General Chief complaint: Arrhythmia/Palpitations Stated complaint: CP Time Seen by Provider: 03/22/23 02:18 Mode of Arrival: Ambulatory Source of Information: Patient Limitations: No Limitations Description of Symptoms (Recalled from ER Triage Doc. by RN): Pt to ED with C/O vomiting and palpitations starting at 2300 last night. Pt reports dizziness and feeling her pulse and thought it was irregular. Pt currently on holter monitor that she started wearing 2/2 following a syncopal episode. Pt reports recent medication changes. Pt started coreg 12.5 mg 03/10. History of Present Illness HPI narrative: 67-year-old female with history of hypertension, hypothyroidism, prior stomach cancer status post resection, type 2 diabetes presents with palpitations. She reports that she she vomited at approximately 11 and thereafter noted her heart rate was somewhat irregular. Has been having difficulty with low blood pressures recently and is on a quality assurance monitor final because there is concern she could be intermittently going into A-fib. 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 She was discontinued on her bisoprolol, she is currently on carvedilol and another blood pressure medication. She denies any significant chest pain but reports intermittent dizziness and palpitations. Related Data Home Medications Medication Instructions Recorded Confirmed aspirin 81 mg tablet,delayed 81 mg PO DAILY Heart disease 03/09/17 03/22/23 release atorvastatin 40 mg tablet 40 mg PO DAILY Cholesterol 03/09/17 03/22/23 fexofenadine 180 mg tablet 180 mg PO DAILY Allergy symptoms 03/09/17 03/22/23 levothyroxine 150 mcg tablet 150 mcg PO DAILY thyroid 03/09/17 03/22/23 (Synthroid) metformin 500 mg tablet 500 mg PO BID Diabetes 03/09/17 03/22/23 meloxicam 15 mg tablet (Mobic) 15 mg PO DAILY Pain 03/13/17 03/22/23 azilsartan medoxomil 40 1 tab PO DAILY 03/22/23 03/22/23 mg-chlorthalidone 12.5 mg tablet (Edarbyclor) carvedilol 12.5 mg tablet 12.5 mg PO BID 03/22/23 03/22/23 cyanocobalamin (vitamin B-12) 1,000 mcg PO DAILY 03/22/23 03/22/23 1,000 mcg tablet (Vitamin B-12) empagliflozin 10 mg tablet 10 mg PO DAILY 03/22/23 03/22/23 (Jardiance) finerenone 20 mg tablet (Kerendia) 20 mg PO DAILY 03/22/23 03/22/23 Allergies Allergy/AdvReac Type Severity Reaction Status Date / Time strawberry Allergy Unknown ANGIOEDEMA Verified 11/07/19 07:51 [From STRAWBERRIES (FOOD/DRUG)] Tetracyclines [TETRACYCLINES] Allergy Unknown Verified 11/07/19 07:51 From STRAWBERRIES (FOOD/DRUG) Allergy Unknown ANGIOEDEMA Uncoded 01/31/17 14:27 [facility] Disclaimer: The information contained in this section may have been updated after the patient was seen, as this information can be updated by other users. Social History Smoking Status: Never smoker alcohol intake: current substance use type: denies use current occupational status: employed Travel in the last 8 weeks: None household members: family housing: house caffeine: Yes ROS Obtained: Yes All systems reviewed & no additional complaints except as documented Physical Exam General General appearance: alert and in no apparent distress Head Head exam: atraumatic and normocephalic Eye Eye exam: Present normal appearance, PERRL and EOMI ENT ENT exam: Present normal oropharynx and normal external ear exam Neck Neck exam: Present normal inspection and full ROM Chest Chest inspection: Present normal inspection and symmetric chest wall rise; Absent tenderness Respiratory Respiratory exam: Present normal lung sounds bilaterally; Absent respiratory distress Cardiovascular Cardiovascular exam: Present tachycardia and irregular rhythm Abdominal Exam Abdominal exam: Present soft; Absent distention, tenderness or guarding Extremities Exam Extremities exam: Present normal inspection; Absent edema or joint swelling Back Exam Back exam: Present normal inspection; Absent tenderness Neurological Exam Neurological exam: Present alert and oriented X3; Absent motor sensory deficit Psychiatric Psychiatric exam: Present normal affect and normal mood Skin Skin exam: Present warm, dry and normal color Lymphatic Lymphatic Findings: no adenopathy Medical Decision Making Medical Records Medical records reviewed: Yes I reviewed the patient's medical records. Gabriele Inquiry Pt receiving controlled substance: No Gabriele was queried for this patient: No Vital Signs: 03/22/23 02:22 03/22/23 02:36 03/22/23 02:38 Temperature 99.1 F Temperature Source Oral Pulse Rate 156 H 139 H Pulse Rate [Left Radial] 166 H Respiratory Rate 20 12 20 Blood Pressure 94/70 L 81/59 L Blood Pressure [Right Arm] 121/61 Blood Pressure Mean [Right Arm] 81 Blood Pressure Source [Right Arm] Automatic Cuff Blood Pressure Position [Right Arm] Supine 02 Sat by Pulse Oximetry 100 98 98 Oxygen Delivery Method Room Air 03/22/23 02:43 03/22/23 02:49 03/22/23 02:55 Temperature Temperature Source Pulse Rate 132 H 129 H 131 H Pulse Rate [Left Radial] Respiratory Rate 20 18 16 Blood Pressure 121/90 92/71 L 81/53 L Blood Pressure [Right Arm] Blood Pressure Mean [Right Arm] Blood Pressure Source [Right Arm] Blood Pressure Position [Right Arm] 02 Sat by Pulse Oximetry 98 97 97 Oxygen Delivery Method 03/22/23 02:58 03/22/23 03:00 03/22/23 03:02 Temperature Temperature Source Pulse Rate 115 H 132 H 132 H Pulse Rate [Left Radial] Respiratory Rate 14 17 19 Blood Pressure 91/42 L 76/59 L 75/56 L Blood Pressure [Right Arm] Blood Pressure Mean [Right Arm] Blood Pressure Source [Right Arm] Blood Pressure Position [Right Arm] 02 Sat by Pulse Oximetry 97 95 96 Oxygen Delivery Method 03/22/23 03:05 03/22/23 03:12 03/22/23 03:14 Temperature Temperature Source Pulse Rate 142 H 121 H 102 H Pulse Rate [Left Radial] Respiratory Rate 20 14 21 Blood Pressure 86/54 L 91/63 L 86/50 L Blood Pressure [Right Arm] Blood Pressure Mean [Right Arm] Blood Pressure Source [Right Arm] Blood Pressure Position [Right Arm] 02 Sat by Pulse Oximetry 96 100 99 Oxygen Delivery Method 03/22/23 03:16 03/22/23 03:18 03/22/23 03:21 Temperature Temperature Source Pulse Rate 101 H 100 H 99 H Pulse Rate [Left Radial] Respiratory Rate 19 15 12 Blood Pressure 87/55 L 97/55 L 89/60 L Blood Pressure [Right Arm] Blood Pressure Mean [Right Arm] Blood Pressure Source [Right Arm] Blood Pressure Position [Right Arm] 02 Sat by Pulse Oximetry 98 99 98 Oxygen Delivery Method 03/22/23 03:24 03/22/23 03:31 03/22/23 03:33 Temperature Temperature Source Pulse Rate 103 H 100 H 97 H Pulse Rate [Left Radial] Respiratory Rate 14 12 13 Blood Pressure 96/58 L 83/46 L 100/53 L Blood Pressure [Right Arm] Blood Pressure Mean [Right Arm] Blood Pressure Source [Right Arm] Blood Pressure Position [Right Arm] 02 Sat by Pulse Oximetry 98 100 99 Oxygen Delivery Method 03/22/23 03:36 03/22/23 03:39 03/22/23 03:49 Temperature Temperature Source Pulse Rate 108 H 98 H 98 H Pulse Rate [Left Radial] Respiratory Rate 13 12 15 Blood Pressure 80/50 L 83/60 L 99/53 L Blood Pressure [Right Arm] Blood Pressure Mean [Right Arm] Blood Pressure Source [Right Arm] Blood Pressure Position [Right Arm] 02 Sat by Pulse Oximetry 98 99 Oxygen Delivery Method 03/22/23 03:51 03/22/23 04:06 03/22/23 04:09 Temperature Temperature Source Pulse Rate 97 H 96 H 107 H Pulse Rate [Left Radial] Respiratory Rate 15 18 17 Blood Pressure 100/60 L 89/41 L 104/63 L Blood Pressure [Right Arm] Blood Pressure Mean [Right Arm] Blood Pressure Source [Right Arm] Blood Pressure Position [Right Arm] 02 Sat by Pulse Oximetry 98 99 98 Oxygen Delivery Method 03/22/23 04:12 03/22/23 04:15 03/22/23 04:19 Temperature Temperature Source Pulse Rate 99 H 98 H 99 H Pulse Rate [Left Radial] Respiratory Rate 15 13 17 Blood Pressure 83/42 L 87/53 L 116/73 Blood Pressure [Right Arm] Blood Pressure Mean [Right Arm] Blood Pressure Source [Right Arm] Blood Pressure Position [Right Arm] 02 Sat by Pulse Oximetry 96 97 97 Oxygen Delivery Method Lab Data Lab results reviewed: Yes I reviewed the patient's lab results. Lab Results 03/22/23 02:14: WBC 13.0 H, RBC 4.96, Hgb 14.9, Hct 43.8, MCV 88.2, MCH 30.1, MCHC 34.1, RDW 13.4, Plt Count 263, MPV 8.3, Neut % (Auto) 72.3, Lymph % (Auto) 18.3, Ripley % (Auto) 4.8, Eos % (Auto) 3.3, Baso % (Auto) 1.1, Neut # (Auto) 9.4 H, Lymph # (Auto) 2.4, Ripley # (Auto) 0.6, Eos # (Auto) 0.4, Baso # (Auto) 0.2, PT 10.9, INR 1.01, APTT 29.7, D-Dimer 0.65 H, Sodium 137, Potassium 3.9, Chloride 99, Carbon Dioxide 27, Anion Gap 14.9, BUN 33 H, Creatinine 1.10 H, Estimated Creat Clear 72, Estimated GFR 49 L, Est GFR ( Amer) 60, Glucose 131 H, Calcium 9.2, Magnesium 1.8, Total Bilirubin 0.5, AST 30, ALT 32, Alkaline Phosphatase 72, Troponin I < 0.01, NT-Pro-B Natriuret Pep < 20.0, Total Protein 6.6, Albumin 4.4, Globulin 2.2, Albumin/Globulin Ratio 2.0 H, TSH 0.21 L, Thyroxine (T4) 14.6 H 03/22/23 02:14 03/22/23 02:14 Orders (Tests/Meds): ED MEDICATIONS Generic Name Dose Route Start Last Admin Trade Name Freq PRN Reason Stop Dose Admin Enoxaparin Sodium 95 mg 03/22/23 03:45 03/22/23 03:51 Enoxaparin 100mg/Ml Syringe 1 mg/kg (95 mg) 04/21/23 03:44 95 mg SQ Administration Q12H SILVIA Discontinued Medications Generic Name Dose Route Start Last Admin Trade Name Freq PRN Reason Stop Dose Admin Etomidate 10 mg 03/22/23 03:22 03/22/23 03:28 Etomidate 40mg/20ml Vial IV 03/22/23 03:23 10 mg ONCE ONE Administration Lactated Ringer's 1,000 mls @ 999 mls/hr 03/22/23 02:49 03/22/23 02:49 Lactated Ringer's 1000 Ml Bag IV 03/22/23 03:49 999 mls/hr .Q1H1M ONE Administration Iopamidol 70 ml 03/22/23 04:08 03/22/23 04:09 Iopamidol-370 (76%);100ml Bottle IV 03/22/23 04:09 70 ml ONCE ONE Administration Metoprolol Tartrate 5 mg 03/22/23 02:28 03/22/23 02:36 Metoprolol Tartrate 5mg/5ml Vial IV 03/22/23 02:29 5 mg ONCE ONE Administration Metoprolol Tartrate 5 mg 03/22/23 02:51 03/22/23 02:53 Metoprolol Tartrate 5mg/5ml Vial IV 03/22/23 02:52 5 mg ONCE ONE Administration Sodium Chloride 10 ml 03/22/23 04:08 03/22/23 04:09 Sodium Chloride 0.9% 10ml Syr (Rad Only) IV 03/22/23 04:09 10 ml ONCE ONE Administration ORDERS Category Date Time Status CT angio chest PE protocol Stat Cat Scan 03/22/23 03:19 Taken BNP [Brain Natriuretic Peptide] Stat Lab 03/22/23 02:14 Completed CBC w/Auto Diff [Complete Blood Count Auto Diff] Stat Lab 03/22/23 02:14 Completed CMP [Comprehensive Metabolic Panel] Stat Lab 03/22/23 02:14 Completed D-Dimer Stat Lab 03/22/23 02:14 Completed Magnesium Stat Lab 03/22/23 02:14 Completed PT INR [Prothrombin Time INR] Stat Lab 03/22/23 02:14 Completed PTT [Activated Partial Thrombo Time] Stat Lab 03/22/23 02:14 Completed T4 (Thyroxine) Stat Lab 03/22/23 02:14 Completed TSH [Thyroid Stimulating Hormone] Stat Lab 03/22/23 02:14 Completed Troponin I Q3H Lab 03/22/23 02:14 Completed Troponin I Q3H Lab 03/22/23 05:30 Ordered ECG initial Besson Routine Y 03/22/23 02:32 Completed ECG repeat same Besson Routine Y 03/22/23 03:12 Completed EKG Request [ECG Request] Stat Y 03/22/23 02:32 Ordered ECG Data Tracing #1: I reviewed this ECG and interpreted as documented below: A-fib with rapid ventricular rate, 166, diffuse ST depressions consistent with rate related demand ischemia. ECG initial impression date: 03/22/23 ECG initial impression time: 02:13 Tracing #2: I reviewed this ECG and interpreted as documented below: Post cardioversion EKG shows sinus rhythm with first-degree AV block, mildly tachycardic at 103, previously seen ST changes have resolved. Q wave noted in lead III. ECG initial impression date: 03/22/23 ECG initial impression time: 03:14 HEART Score History (anamnesis): Slightly suspicious ECG: Non-specific disturbance Age: >65 years Risk factors: 1-2 risk factors Troponin: </= normal limit HEART Score: 4 Medical Decision Narrative: 67-year-old female presents with palpitations and dizziness starting at approximately 11 PM. History was obtained via conversation with patient, . On arrival, patient is afebrile, hypotensive with maps in the 50s and 60s, tachycardic in A-fib RVR with rates up to 180s moving all extremities spont aneously. Full physical exam performed and significant for no significant lower extremity edema, clear lungs bilaterally. Patient intermittently feels woozy, but is alert and interactive and generally well-appearing. History is consistent with symptomatic new onset atrial fibrillation approximately 3 hours prior to arrival. Differential includes but is not limited to A-fib RVR, SVT, RI, PE, electrolyte derangement. Workup initiated including CBC CMP mag troponin D-dimer EKG. Patient placed on the cardiac pads. Patient is borderline hypotensive in ED with severe A-fib RVR. Given she is on a beta-mariel at home, I do not want to trial calcium channel blockers time. Patient was given 5 of IV metoprolol x 2, her heart rate improved to the 140s and 150s, down from the 170s to 180s. However, her blood pressure did not increase, instead worsened slightly. Given this, patient was consented and emergency synchronized cardioversion was performed using low-dose etomidate and 100 J. Procedure was successful. Patient tolerated the procedure well. Patient converted to sinus rhythm on repeat EKG, blood pressures improved. Patient initiated on Lovenox for anticoagulation. On re-evaluation, patient [remains afebrile, HD stable.], Interpretation of quality assurance monitor final patient venus in sinus rhythm with rates between 90 and 110. Laboratory workup independently interpreted by me and significant for positive D-dimer, negative initial troponin, no significant electrolyte derangements, mild leukocytosis. Given positive D-dimer, will assess with CT PE. Imaging independently interpreted by me and significant for no large pulmonary embolism, significant pulmonary pathology. See radiology read for full review of final results. Given patient history, exam and workup, patient's presentation most likely represents new onset A-fib with RVR with associated hypotension requiring emergent cardioversion. Given recent history of hypotension and severity of episode, I think patient would benefit from continued cardiac monitoring, cardiology evaluation and inpatient management. Interactive discussion was had with the hospitalist on-call accepted the patient. Procedures Risk/Benefits of Procedure(s) Were Explained: Yes Miscellaneous Procedure Procedure Performed: Procedure: Cardioversion Indication: A-fib RVR with hypotension Description: The patient was consented. The room was set up appropriately including oxygen, suction, end-tidal CO2 monitoring, ZOLL, etc. Patient was given 10 mg of IV etomidate with successful sedation. Synchronized cardioversion was performed with 100 J. Patient successfully converted to sinus rhythm on first attempt. No intraprocedure complications. Patient tolerated procedure well. Critical Care Critical Care Time Critical Care Time: Yes Attestation: On 03/22/23, the high probability of a clinically significant, sudden or life threatening deterioration of the following system(s) cardiac required my full and direct attention, intervention and personal management. The time I documen odalis below is in addition to time spent performing reported procedures but includes the following listed in this critical care notation. Total Time Total Critical Care Time: 40
--- NOTE | 2023-03-22 03:36 | PC.NURSE ---
Pt A&O X4. Pt tolerated cardioversion well and maintained airway t/o procedure. Reports improved symptoms. Pt assisted to void with purewick at this time.
[2023-03-22] MEDS: ENOXAPARIN 100MG/ML SYRINGE 95 MG SQ (03:51)
[2023-03-22 03:55] LABS: Activated Partial Thrombo Time 29.7 seconds (22.8-30.6); INR 1.01 (0.9-1.1); Prothrombin Time 10.9 seconds (10.1-12.5)
--- NOTE | 2023-03-22 03:56 | PC.NURSE ---
patient to CT
[2023-03-22] MEDS: SODIUM CHLORIDE 0.9% 10ML SYR (RAD ONLY) 10 ML IV (04:09)
[2023-03-22] MEDS: IOPAMIDOL-370 (76%);100ML BOTTLE 70 ML IV (04:09)
--- NOTE | 2023-03-22 04:20 | PC.NURSE ---
manual bp 98/58
--- NOTE | 2023-03-22 04:22 | PC.NURSE ---
rounded on pt at this time. Pt voices no needs.
--- NOTE | 2023-03-22 04:30 | PC.NURSE ---
on phone with hospitalist
--- NOTE | 2023-03-22 04:35 | EXP.HP ---
History of Present Illness *Admission Date: 03/22/23 *Reason for visit:: afib new onset *History of present illness: This is a 67-year-old female with PMHx of obesity, hypertension, hypothyroidism, prior stomach cancer s/p resection, type 2 diabetes presented to ED with palpitations. She reported everything started after she vomited at approximately 11p. Of note, has been recently on redosing her regular medications due to low blood pressures, was recently on a aviation medicine specialist because there is concern she could be intermittently on arrhythmias. 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 She was discontinued on her bisoprolol, she is currently on carvedilol. She denies any significant chest pain but reports intermittent dizziness and palpitations. Admitted for work up and treatment. [facility] Disclaimer: The information contained in this section may have been updated after the patient was seen, as this information can be updated by other users. Medical History (Updated 03/22/23 @ 13:25 by Jessie Mccollum APRN) Atrial fibrillation with rapid ventricular response History of stomach cancer Hypertension Non-insulin treated type 2 diabetes mellitus Obesity (BMI 30-39.9) Family History (Updated 03/22/23 @ 06:02 by Leslie Miller RN) No significant family history Social History Smoking Status: Never smoker alcohol intake: current substance use type: denies use current occupational status: employed Travel in the last 8 weeks: None household members: family housing: house caffeine: Yes Review of Systems Review of Systems Review of systems:: pertinent systems reviewed and negative unless documented below Meds Home Medications and Allergies Home Medications Medication Instructions Recorded Confirmed Type aspirin 81 mg tablet,delayed 81 mg PO DAILY Heart disease 03/09/17 03/22/23 History release fexofenadine 180 mg tablet 360 mg PO BID Allergy symptoms 03/09/17 03/22/23 History metformin 500 mg tablet 500 mg PO BID Diabetes 03/09/17 03/22/23 History meloxicam 15 mg tablet (Mobic) 15 mg PO DAILY Pain 03/13/17 03/22/23 History atorvastatin 80 mg tablet 80 mg PO HS 03/22/23 03/22/23 History azilsartan medoxomil 40 1 tab PO DAILY 30 days #30 tabs 03/22/23 Rx mg-chlorthalidone 12.5 mg tablet (Edarbyclor) carvedilol 25 mg tablet 25 mg PO BID 30 days #60 tabs 03/22/23 Rx cyanocobalamin (vitamin B-12) 1,000 mcg PO DAILY 03/22/23 03/22/23 History 1,000 mcg tablet (Vitamin B-12) empagliflozin 10 mg tablet 10 mg PO DAILY 03/22/23 03/22/23 History (Jardiance) finerenone 20 mg tablet (Kerendia) 20 mg PO DAILY 03/22/23 03/22/23 History levothyroxine 125 mcg capsule 125 mcg PO DAILY 30 days #30 caps 03/22/23 Rx pantoprazole 40 mg tablet,delayed 40 mg PO DAILY 30 days #30 tabs 03/22/23 Rx release rivaroxaban 20 mg tablet 20 mg PO DAILY 30 days #30 tabs 03/22/23 Rx semaglutide 1 mg/dose (4 mg/3 mL) 2 mg SQ WEEKLY 03/22/23 03/22/23 History subcutaneous pen injector (Ozempic) New Prescriptions to Start Prescriptions: azilsartan med-chlorthalidone [Edarbyclor] Quincy Rodriguez carvedilol Quincy Rodriguez levothyroxine Quincy Rodriguez pantoprazole Quincy Rodriguez rivaroxaban Quincy Rodriguez Allergies Allergy/AdvReac Type Severity Reaction Status Date / Time strawberry Allergy Unknown ANGIOEDEMA Verified 11/07/19 07:51 [From STRAWBERRIES (FOOD/DRUG)] Tetracyclines [TETRACYCLINES] Allergy Unknown Verified 11/07/19 07:51 From STRAWBERRIES (FOOD/DRUG) Allergy Unknown ANGIOEDEMA Uncoded 01/31/17 14:27 Exam Data for Last 24 hours Vital signs and Labs for Last 24 Hours: Temp Pulse Resp BP Pulse Ox O2 Del Method 99.1 F 99 H 17 116/73 97 Room Air 03/22/23 02:22 03/22/23 04:19 03/22/23 04:19 03/22/23 04:19 03/22/23 04:19 03/22/23 02:22 Laboratory Results - last 24 hr 03/22/23 02:14: WBC 13.0 H, RBC 4.96, Hgb 14.9, Hct 43.8, MCV 88.2, MCH 30.1, MCHC 34.1, RDW 13.4, Plt Count 263, MPV 8.3, Neut % (Auto) 72.3, Lymph % (Auto) 18.3, [place] % (Auto) 4.8, Eos % (Auto) 3.3, Baso % (Auto) 1.1, Neut # (Auto) 9.4 H, Lymph # (Auto) 2.4, [place] # (Auto) 0.6, Eos # (Auto) 0.4, Baso # (Auto) 0.2, PT 10.9, INR 1.01, APTT 29.7, D-Dimer 0.65 H, Sodium 137, Potassium 3.9, Chloride 99, Carbon Dioxide 27, Anion Gap 14.9, BUN 33 H, Creatinine 1.10 H, Estimated Creat Clear 72, Estimated GFR 49 L, Est GFR ( Amer) 60, Glucose 131 H, Calcium 9.2, Magnesium 1.8, Total Bilirubin 0.5, AST 30, ALT 32, Alkaline Phosphatase 72, Troponin I < 0.01, NT-Pro-B Natriuret Pep < 20.0, Total Protein 6.6, Albumin 4.4, Globulin 2.2, Albumin/Globulin Ratio 2.0 H, TSH 0.21 L, Thyroxine (T4) 14.6 H I & O for Last 24 hours: Intake & Output 03/19/23 03/20/23 03/21/23 03/22/23 23:59 23:59 23:59 23:59 Weight 94.801 kg Constitutional Constitutional: mild distress, obese and cooperative *Routine HEENT Exam Head: Present normocephalic and atraumatic Eye: Present EOMI, PERRL and normal accommodation ENT: Present mucous membranes moist *Routine Neck Exam Neck: Present supple, full ROM and trachea midline *Routine Respiratory Exam Respiratory: Present normal respiratory effort, able to speak in complete sentences and symmetric chest movement; Absent respiratory distress *Routine Cardiovascular Exam Cardiovascular: Present RRR, Normal S1, Normal S2 and tachycardia *Routine Abdominal Exam Abdominal: Present soft, normoactive bowel sounds and obese; Absent organomegaly *Routine Rectal Exam Rectal:: deferred *Routine Genitalia Exam Genitalia:: deferred *Routine Extremities Exam Extremities: Present full ROM; Absent cyanosis, clubbing or edema *Routine Skin Exam Skin: Present intact and warm *Routine Neurological Exam Neurological: Present alert, oriented X3, normal reflexes, moving all extremities and normal speech Routine Psychiatric Exam Psychiatric: Present normal thought process, cooperative and good judgment H&P: Result Imaging and Cardiology EKG: Status: image reviewed by me and Preliminary report CT scan - chest: Status: image reviewed by me, Preliminary report and final report Assessment and Plan *Assessment and plan (1) Atrial fibrillation with rapid ventricular response: Status: Acute Category: Medical Code(s): I48.91 - Unspecified atrial fibrillation (2) Acute hypotension: Status: Acute Category: Medical Code(s): I95.9 - Hypotension, unspecified (3) Dehydration: Status: Acute Category: Medical Code(s): E86.0 - Dehydration (4) Hypothyroidism: Status: Acute Qualifiers: Hypothyroidism type: unspecified Qualified Code(s): E03.9 - Hypothyroidism, unspecified Category: Medical Code(s): E03.9 - Hypothyroidism, unspecified (5) Non-insulin treated type 2 diabetes mellitus: Status: Acute Category: Medical Code(s): E11.9 - Type 2 diabetes mellitus without complications (6) Obesity (BMI 30-39.9): Status: Acute Category: Medical Code(s): E66.9 - Obesity, unspecified Plan 67-year-old female with PMHx of obesity, hypertension, hypothyroidism, prior stomach cancer s/p resection, type 2 diabetes presented to ED with palpitations. She reported everything started after she vomited at approximately 11p. On arrival patient was tachycardic and hypotensive. EKG was on Afib with a heart rate of 160's. Initially 5 mg of IV metoprolol was given. Heart rate improved but blood pressure deteriorated. ER provider decided to cardiovert patient. Procedure was completed without complication. Post procedure EKG shows sinus rhythm. Troponin was negative, D-dimer was elevated, CTA of the chest was obtained, negative for PE. all findings were discussed with the ER for admission. Plan as follows: -A-fib with RVR new onset. Resolved Patient admitted for continued cardiac telemetry. Cardiology consult Echocardiogram ordered CTA negative for PE. concerning of glaucomatous disease vs ground glass opacity. WBC elevated. No clinical support of active infection, therefore I deferred the use of abx. Continue monitor Started on full dose of Lovenox by ER-anticoagulation Continue monitor for heart rate and blood pressure per unit -Acute hypertension. Improved Likely secondary to IV metoprolol Continue management With current home the rest of the blood pressure for today. Resume as patient says clinically improve blood pressure -Dehydration presented with slightly kidney injury creatinine of 1.1 Encourage hydration by increasing p.o. intake Repeat labs Monitor for creatinine -Hypothyroidism: TSH is low repeat and monitor May need to adjust doses of Synthroid -[id number]-[id number] diabetes: Controlled. Dietary management Accu-Chek before Hold metformin until kidneys improved -History of obesity: Educated on weight management, and cardiovascular risks associated with overweight. PCP to follow-up abnormal BMI Lovenox full dose. On Protonix for GI bleed protection Full code Rounded on patient after nurse practitioner. Personally examined and interviewed patient. Agree with exam findings and care plan as documented.
--- NOTE | 2023-03-22 05:08 | PC.NURSE ---
Pt ambulated to bathroom with standby assistance. Pt tolerated well. Report called to Domenic Miller RN
--- NOTE | 2023-03-22 05:57 | CA_ITS ---
APPROVED REPORT EXAM: Comprehensive 2D, Doppler, and color-flow Echocardiogram Telephone Coin Box Collector: JOYCE Isidro, RVS Ht: 5 ft 1 in Wt: 214lbs BSA: 1.94 BP: 116/73 mmHg Indications: Afib, Hypothyroidism ,HTN, Dizziness, palpitations 2D Dimensions Left Atrium 2.83 cm LA Volume 53.50 mL LA Volume Index 26.90 mL/m2 (M/F) 16-34 M-Mode Dimensions RVDd 1.90 cm (0.9-2.6) LA Diam 3.55 cm (1.9-4.0) LVDd 4.66 cm (3.5-5.7) LVDs 3.05 cm (3.5-5.7) IVSd 1.15 cm (0.6-1.1) PWd 1.00 cm (0.6-1.1) EF (Teich) 63.70% EPSs 0.79 cm FS 34.50% EDV (Teich) 100.30 mL TAPSE 1.90 (<1.7) ESV (Teich) 36.40 mL LV Diastology E Decel Time 180 (160-240 msec) E/A Ratio 0.99 MED A' 12.80 cm/s LAT A' 6.30 cm/s Mitral Valve MV A Velocity 74.0 (40-130 cm/s) E/A Ratio 0.99 Tricuspid Valve TR P. Velocity 175.00 cm/s RAP Estimate 10.00 mmHg RVSP 22.30 mmHg Left Ventricle The left ventricle is normal size. The left ventricular systolic function is normal. The left ventricular ejection fraction is within the normal range. There is increased LV wall thickness. There is normal LV segmental wall motion. The left ventricular diastolic function is normal. LVEF is 55%. Right Ventricle The right ventricle is mildly dilated. There is mild reduction in RV function. TAPSA is 1.6 cm. TV s' is 9 cm/s. Atria The left atrium size is normal. The right atrium size is normal. There is no Doppler evidence of interatrial shunt. Aortic Valve The aortic valve is mildly thickened. There is no aortic valvular stenosis. No aortic regurgitation is present. Mitral Valve The mitral valve leaflets are mildly thickened. No evidence of mitral valve stenosis. Trace mitral regurgitation. Tricuspid Valve The tricuspid valve leaflets are thin and pliable. Mild tricuspid regurgitation. RVSP is 15-20 mmHg. Pulmonic Valve The pulmonary valve is normal in structure. Trace pulmonic regurgitation. Great Vessels The aortic root is normal in size. The ascending aorta is borderline dilated, measuring 3.7 cm in diameter. IVC is normal in size and collapses >50% with inspiration. Pericardium There is no pericardial effusion. Other Information Study Quality: Fair Conclusion Normal LV systolic function. Mild RV dilation with mild reduction in RV function. Mild TR. Normal RVSP. Borderline dilated ascending aorta, measuring 3.7 cm in diameter. Electronically signed by : Carline Trevizo MD 03/25/2023 22:55:22
[2023-03-22 06:11] LABS: POC Glucose,Bedside 98 (70-110)
[2023-03-22 06:27] LABS: Basophils # 0.1 K/mm3 (0-0.2); Eosinophils # 0.2 K/mm3 (0.0-0.4); Red Cell Distribution Width 13.4 % (11.5-17.5)
[2023-03-22 06:28] LABS: Chloride 103 mmol/L (98-107); Potassium 4.4 mmoL/L (3.5-5.1); Sodium 136 mmol/L (136-145)
[2023-03-22 06:30] LABS: Alanine Aminotransferase 30 U/L (12-78); Alkaline Phosphatase 63 U/L (38-126); Aspartate Amino Transferase 28 U/L (14-36); Bilirubin,Total 0.5 mg/dl (0.2-1.3); Blood Urea Nitrogen 26 mg/dl (7-17); Creatinine Clearance Estimated 82 mL/min (50-200); Estimated Glomerular Filt Rate 62 ml/min (>60); GFR (African American) 75 ML/MIN (>60)
[2023-03-22 06:31] LABS: Albumin Level 3.5 g/dl (3.5-5.0); Albumin/Globulin Ratio 1.6 (1.1-1.8); Anion Gap 9.4 mEq/L (5-15); Calcium 8.9 mg/dl (8.4-10.2); Carbon Dioxide 28 mmol/L (22.0-30.0); Chol/HDL Ratio 4.1 (1-3.5); Cholesterol 61 mg/dl (140-200); Globulin 2.2 g/dL (1.3-3.2); Glucose 94 mg/dl (74-100); HDL Cholesterol 15 mg/dl (40-60); Total Protein,Serum 5.7 g/dl (6.3-8.2); Triglycerides 128 mg/dl (30-150); VLDL Cholesterol 26 mg/dL (0-40)
[2023-03-22 06:48] LABS: Direct LDL Cholesterol 34.03 mg/dL (100-129)
[2023-03-22 06:50] LABS: Eosinophils % 2.7 % (0.1-12.0); Hematocrit 40.9 % (37.0-47.0); Lymphocytes # 2.1 K/mm3 (0.7-4.5); Mean Corpuscular HGB Conc 32.8 g/dL (31.8-35.4); Mean Corpuscular Hemoglobin 29.1 pg (27.0-31.2); Mean Corpuscular Volume 88.8 fl (81-99); Mean Platelet Volume 8.1 fl (7.4-10.4); Monocytes # 0.4 K/mm3 (0.1-1.0); Monocytes % 4.6 % (1.7-9.3); Neutrophils # 5.3 K/mm3 (1.8-7.8); Neutrophils % 65.6 % (37.0-80.0); Platelet Count 243 K/mm3 (142-424)
[2023-03-22 06:52] LABS: Hemoglobin 13.4 g/dL (12.2-16.2)
[2023-03-22 07:19] LABS: Troponin I < 0.01 ng/ml (0.00-0.034)
--- NOTE | 2023-03-22 07:33 | HMH.PHAINT1 ---
Pharmacy Intervention Comments: Medication reconciliation completed using external fill history from pharmacy and clarification via speaking with patient at bedside.
[2023-03-22] MEDS: METFORMIN 500MG TABLET 500 MG PO (09:17)
[2023-03-22] MEDS: PANTOPRAZOLE 40MG TABLET 40 MG PO (09:17)
[2023-03-22] MEDS: ASPIRIN EC 81MG TABLET 81 MG PO (09:17)
[2023-03-22] MEDS: EMPAGLIFLOZIN 10MG TABLET 10 MG PO (09:17)
--- NOTE | 2023-03-22 13:08 | EXP.CARD.CON ---
History of Present Illness History of Present Illness Consult date: 03/22/23 Requesting physician: Quincy Rodriguez Consult reason: atrial fibrillation Chief complaint: palpitations, afib History of present illness: This is a 67-year-old white female who presented to the emergency department with complaints of racing of the heart and just not feeling well. She has a past medical history of hypertension, hypothyroidism, stomach cancer status postresection and diabetes. The patient follows with Dr. Bah, with cardiology in [facility]. She states that she has been having her blood pressure medications adjusted recently due to her fluctuating blood pressure. She was also concerned about some palpitations and racing of the heart so she did have a 2-week event monitor in place when she arrived at the hospital. She states that she went to dinner last night and when she got home she felt like her food was just stuck in her stomach. She states this was a symptom she had prior to being diagnosed with the stomach cancer. She states that she vomited up her food around 10 PM and afterwards she just felt funny. She states that she checked her blood pressure which was acceptable but her heart rate was high at that time. She states that her heart was racing and beating fast. She states her heart rate was in the 130s on her blood pressure monitor. The patient tried to do vagal maneuvers at home but her heart rate continued to be high and she continued to feel the palpitations. She then woke her up and decided to come to the emergency department for further evaluation. She was found to be in atrial fibrillation with RVR. She was given a dose of metoprolol 5 mg IV x 1 dose. Her rate improved but she was still tachycardic and she became hypotensive. She was then cardioverted in the emergency department which was successful at returning her to sinus rhythm. She remains in sinus rhythm this morning. She denies any chest pain or pressure. She denies any shortness of breath or edema. She denies any fever, chills, diarrhea, PND or orthopnea. [facility] Disclaimer: The information contained in this section may have been updated after the patient was seen, as this information can be updated by other users. Medical History (Updated 03/22/23 @ 13:25 by Jessie Mccollum APRN) Atrial fibrillation with rapid ventricular response History of stomach cancer Hypertension Non-insulin treated type 2 diabetes mellitus Obesity (BMI 30-39.9) Family History (Updated 03/22/23 @ 06:02 by Leslie Miller RN) Other No significant family history Social History Smoking Status: Never smoker alcohol intake: current substance use type: denies use current occupational status: employed Travel in the last 8 weeks: None household members: family housing: house caffeine: Yes Review of Systems Review of Systems Review of systems:: pertinent systems reviewed and negative unless documented below Constitutional Constitutional: Reports system reviewed and no additional complaints, except as documented Eyes Eyes: Reports system reviewed and no additional complaints, except as documented ENT Ears, Nose, Mouth, and Throat: Reports system reviewed and no additional complaints, except as documented *Cardiovascular Cardiovascular: Reports system reviewed and no additional complaints, except as documented, Denies chest pain, Denies dyspnea, Reports palpitations and Reports rapid heart rate *Respiratory Respiratory: Reports system reviewed and no additional complaints, except as documented and Denies dyspnea *Gastrointestinal Gastrointestinal: Reports system reviewed and no additional complaints, except as documented, Reports nausea and Reports vomiting Comments: Feeling full/like the food was stuck in her stomach *Genitourinary Genitourinary: Reports system reviewed and no additional complaints, except as documented *Musculoskeletal Musculoskeletal: Reports system reviewed and no additional complaints, except as documented Integumentary/Breasts Skin/Breast: Reports system reviewed and no additional complaints, except as documented *Neurologic Neurologic: Reports system reviewed and no additional complaints, except as documented Psychiatric Psychiatric: Reports system reviewed and no additional complaints, except as documented Endocrine Endocrine: Reports system reviewed and no additional complaints, except as documented and Reports palpitations Hematologic/Lymphatic Hematologic/Lymphatic: Reports system reviewed and no additional complaints, except as documented Allergic/Immunologic Allergic/Immunologic: Reports system reviewed and no additional complaints, except as documented Exam Data for Last 24 hours Vital signs and Labs for Last 24 Hours: Temp Pulse Resp BP Pulse Ox O2 Del Method 97.9 F 83 16 96/53 L 100 Room Air 03/22/23 11:44 03/22/23 11:44 03/22/23 11:44 03/22/23 11:44 03/22/23 11:44 03/22/23 11:44 Laboratory Results - last 24 hr 03/22/23 02:14: WBC 13.0 H, RBC 4.96, Hgb 14.9, Hct 43.8, MCV 88.2, MCH 30.1, MCHC 34.1, RDW 13.4, Plt Count 263, MPV 8.3, Neut % (Auto) 72.3, Lymph % (Auto) 18.3, [place] % (Auto) 4.8, Eos % (Auto) 3.3, Baso % (Auto) 1.1, Neut # (Auto) 9.4 H, Lymph # (Auto) 2.4, [place] # (Auto) 0.6, Eos # (Auto) 0.4, Baso # (Auto) 0.2, PT 10.9, INR 1.01, APTT 29.7, D-Dimer 0.65 H, Sodium 137, Potassium 3.9, Chloride 99, Carbon Dioxide 27, Anion Gap 14.9, BUN 33 H, Creatinine 1.10 H, Estimated Creat Clear 72, Estimated GFR 49 L, Est GFR ( Amer) 60, Glucose 131 H, Calcium 9.2, Magnesium 1.8, Total Bilirubin 0.5, AST 30, ALT 32, Alkaline Phosphatase 72, Troponin I < 0.01, NT-Pro-B Natriuret Pep < 20.0, Total Protein 6.6, Albumin 4.4, Globulin 2.2, Albumin/Globulin Ratio 2.0 H, TSH 0.21 L, Thyroxine (T4) 14.6 H 03/22/23 05:48: POC Glucose 98 03/22/23 06:10: WBC 8.0 D, RBC 4.60, Hgb 13.4 D, Hct 40.9, MCV 88.8, MCH 29.1, MCHC 32.8, RDW 13.4, Plt Count 243, MPV 8.1, Neut % (Auto) 65.6, Lymph % (Auto) 26.0, [place] % (Auto) 4.6, Eos % (Auto) 2.7, Baso % (Auto) 1.0, Neut # (Auto) 5.3, Lymph # (Auto) 2.1, [place] # (Auto) 0.4, Eos # (Auto) 0.2, Baso # (Auto) 0.1, Sodium 136, Potassium 4.4, Chloride 103, Carbon Dioxide 28, Anion Gap 9.4, BUN 26 H, Creatinine 0.90, Estimated Creat Clear 82, Estimated GFR 62, Est GFR ( Amer) 75 D, Glucose 94 D, Calcium 8.9, Total Bilirubin 0.5, AST 28, ALT 30, Alkaline Phosphatase 63, Troponin I < 0.01, Total Protein 5.7 L, Albumin 3.5 D, Globulin 2.2, Albumin/Globulin Ratio 1.6, Triglycerides 128, Cholesterol 61 L, LDL Cholesterol Direct 34.03 L, VLDL Cholesterol 26, HDL Cholesterol 15 L, Cholesterol/HDL Ratio 4.1 H I & O for Last 24 hours: Intake & Output 03/19/23 03/20/23 03/21/23 03/22/23 23:59 23:59 23:59 23:59 Intake Total 780 / 780 Balance 780 / 780 Weight 214 lb 8.156 oz Constitutional Constitutional: no acute distress and obese *Routine HEENT Exam Head: Present normocephalic and atraumatic ENT: Present mucous membranes moist *Routine Neck Exam Neck: Present supple, full ROM and normal carotid upstroke; Absent JVD, carotid bruit or lymphadenopathy *Routine Respiratory Exam Respiratory: Present CTA bilaterally, normal respiratory effort, able to speak in complete sentences and symmetric chest movement *Routine Cardiovascular Exam Cardiovascular: Present RRR, Normal S1 and Normal S2; Absent murmur or gallop *Routine Abdominal Exam Abdominal: Present soft and normoactive bowel sounds; Absent tenderness, distended or organomegaly *Routine Extremities Exam Extremities: Present full ROM, pulses intact and normal capillary refill; Absent cyanosis, clubbing or edema *Routine Skin Exam Skin: Present intact and warm; Absent erythema *Routine Neurological Exam Neurological: Present alert, oriented X3 and CN II-XII intact; Absent sensory deficit or motor deficit Routine Psychiatric Exam Psychiatric: Present normal affect Meds Home Medications and Allergies Home Medications Medication Instructions Recorded Confirmed Type aspirin 81 mg tablet,delayed 81 mg PO DAILY Heart disease 03/09/17 03/22/23 History release fexofenadine 180 mg tablet 360 mg PO BID Allergy symptoms 03/09/17 03/22/23 History metformin 500 mg tablet 500 mg PO BID Diabetes 03/09/17 03/22/23 History meloxicam 15 mg tablet (Mobic) 15 mg PO DAILY Pain 03/13/17 03/22/23 History atorvastatin 80 mg tablet 80 mg PO HS 03/22/23 03/22/23 History azilsartan medoxomil 40 1 tab PO DAILY 03/22/23 03/22/23 History mg-chlorthalidone 12.5 mg tablet (Edarbyclor) carvedilol 12.5 mg tablet 12.5 mg PO BID 03/22/23 03/22/23 History cyanocobalamin (vitamin B-12) 1,000 mcg PO DAILY 03/22/23 03/22/23 History 1,000 mcg tablet (Vitamin B-12) empagliflozin 10 mg tablet 10 mg PO DAILY 03/22/23 03/22/23 History (Jardiance) finerenone 20 mg tablet (Kerendia) 20 mg PO DAILY 03/22/23 03/22/23 History levothyroxine 137 mcg tablet 137 mcg PO DAILY 03/22/23 03/22/23 History semaglutide 1 mg/dose (4 mg/3 mL) 2 mg SQ WEEKLY 03/22/23 03/22/23 History subcutaneous pen injector (Ozempic) New Prescriptions to Start Prescriptions: Allergies Allergy/AdvReac Type Severity Reaction Status Date / Time strawberry Allergy Unknown ANGIOEDEMA Verified 11/07/19 07:51 [From STRAWBERRIES (FOOD/DRUG)] Tetracyclines [TETRACYCLINES] Allergy Unknown Verified 11/07/19 07:51 From STRAWBERRIES (FOOD/DRUG) Allergy Unknown ANGIOEDEMA Uncoded 01/31/17 14:27 Assessment and Plan *Assessment and plan (1) Atrial fibrillation with rapid ventricular response: Status: Acute Category: Medical Code(s): I48.91 - Unspecified atrial fibrillation (2) Hypothyroidism: Status: Acute Qualifiers: Hypothyroidism type: unspecified Qualified Code(s): E03.9 - Hypothyroidism, unspecified Category: Medical Code(s): E03.9 - Hypothyroidism, unspecified (3) Non-insulin treated type 2 diabetes mellitus: Status: Acute Category: Medical Code(s): E11.9 - Type 2 diabetes mellitus without complications (4) Hypertension: Status: Acute Qualifiers: Hypertension type: primary hypertension Qualified Code(s): I10 - Essential (primary) hypertension Category: Medical Code(s): I10 - Essential (primary) hypertension (5) Obesity (BMI 30-39.9): Status: Acute Category: Medical Code(s): E66.9 - Obesity, unspecified (6) History of stomach cancer: Status: Acute Category: Medical Code(s): Z85.028 - Personal history of other malignant neoplasm of stomach Plan Plan: 1. The patient presented to the emergency department with palpitations. She was found to be in atrial fibrillation with RVR. She did get a dose of IV metoprolol which did improve her heart rate but she still remained tachycardic. The patient got hypotensive and she was cardioverted with successful conversion to sinus rhythm. She remains in sinus rhythm this morning. 2. Will increase her carvedilol to 25 mg p.o. twice daily for suppression of her atrial fibrillation. 3. The patient has a [id number] of at least 4. The patient will require long-term anticoagulation. She is currently on Lovenox. Will switch her over to Xarelto 20 mg p.o. daily with a meal for long-term anticoagulation. We have had a long discussion with the patient about the risks and benefits of long-term anticoagulation. If she has any active signs of bleeding then she is to report to the emergency department or call her thermal cutting machine operator. The patient verbalizes understanding. 4. The patient's troponins are negative. She has ruled out for an IL. No plans for invasive left cardiac. 5. Preliminary echocardiogram shows a normal ejection fraction. 6. Continue Edarbi chlor for blood pressure control. 7. The patient is diabetic. She will need aggressive control of the disease. Will defer management to hospitalist. 8. The patient's TSH is low. She is likely getting too much levothyroxine and her dose has been reduced. 9. No further recommendations at this time from a cardiac standpoint. The patient is stable for discharge home today from a cardiac standpoint. She will need to follow-up with her primary thermal cutting machine operator in 1 to 2 weeks on an outpatient basis. The patient will need to be discharged on the following cardiac medications: Aspirin 81 mg daily, Lipitor 80 mg p.o. nightly, Edarbi chlor 40/12.5 mg daily, Coreg 25 mg p.o. twice daily, Xarelto 20 mg p.o. with supper daily. Thank you for the opportunity to help participate in the care of this patient. All recommendations and orders are per Dr. Trevizo.
[2023-03-22] MEDS: CARVEDILOL 25MG TABLET 25 MG PO (13:12)
[2023-03-22] MEDS: ONDANSETRON 4MG/2ML VIAL 4 MG IV (13:12)
--- NOTE | 2023-03-22 14:09 | EXP.DC.SUM ---
General Admission date:: 03/22/23 Discharge date: 03/22/23 HPI HPI HPI: This is a 67-year-old female with PMHx of obesity, hypertension, hypothyroidism, prior stomach cancer s/p resection, type 2 diabetes presented to ED with palpitations. She reported everything started after she vomited at approximately 11p. Of note, has been recently on redosing her regular medications due to low blood pressures, was recently on a cardiac cath tech because there is concern she could be intermittently on arrhythmias. 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 She was discontinued on her bisoprolol, she is currently on carvedilol. She denies any significant chest pain but reports intermittent dizziness and palpitations. Admitted for work up and treatment. Hospital Course Hospital Course Hospital Course: 67-year-old female with PMHx of obesity, hypertension, hypothyroidism, prior stomach cancer s/p resection, type 2 diabetes presented to ED with palpitations. She reported everything started after she vomited at approximately 11p. On arrival patient was tachycardic and hypotensive. EKG was on Afib with a heart rate of 160's. Initially 5 mg of IV metoprolol was given. Heart rate improved but blood pressure deteriorated. ER provider decided to cardiovert patient. Procedure was completed without complication. Post procedure EKG shows sinus rhythm. Troponin was negative, D-dimer was elevated, CTA of the chest was obtained, negative for PE. Admitted to medicine. Cardiology consulted and evaluated. Changes made to medications. Stable for discharge home. Problems addressed as follows: -A-fib with RVR new onset. Resolved -Acute hypotension, improved Patient admitted for continued cardiac telemetry. As stated above, cardioverted in the ER after becoming high per tensive with administration of IV metoprolol. Heart rate remained controlled during remainder of hospitalization. Carvedilol increased to 25 mg twice daily for suppression of A-fib. Given her [id number] of at least 4, was initiated on Lovenox. Transitioned to Xarelto 20 mg daily at discharge for long-term anticoagulation. Echo obtained with preliminary read showing preserved ejection fraction. Troponins negative during admission. UT ruled out. No plan for invasive cath. Recommend continuing her home Edarbyclor for blood pressure control. -Dehydration presented with slightly kidney injury creatinine of 1.1. Encourage p.o. hydration. Repeat labs showed normalization of kidney function. -Hypothyroidism: TSH below normal threshold. Recommend decreasing levothyroxine to 125 mcg daily as overtreating her hypothyroid can essentially make her hyperthyroid and put her at risk for increased tachyarrhythmias. Recommend repeat TSH in 6 weeks. -Ttj-ownbxtp-nzchlehux diabetes: Controlled. Dietary management. Continue Jardiance and metformin at discharge The patient is stable for discharge home today from a cardiac standpoint. She will need to follow-up with her primary equipment installation professional in 1 to 2 weeks on an outpatient basis. The patient will need to be discharged on the following cardiac medications: Aspirin 81 mg daily, Lipitor 80 mg p.o. nightly, Edarbi chlor 40/12.5 mg daily, Coreg 25 mg p.o. twice daily, Xarelto 20 mg p.o. with supper daily. Exam Data for Last 24 hours Vital signs and Labs for Last 24 Hours: Temp Pulse Resp BP Pulse Ox O2 Del Method 97.9 F 90 16 96/53 L 100 Room Air 03/22/23 11:44 03/22/23 12:00 03/22/23 11:44 03/22/23 11:44 03/22/23 11:44 03/22/23 11:44 Laboratory Results - last 24 hr 03/22/23 02:14: WBC 13.0 H, RBC 4.96, Hgb 14.9, Hct 43.8, MCV 88.2, MCH 30.1, MCHC 34.1, RDW 13.4, Plt Count 263, MPV 8.3, Neut % (Auto) 72.3, Lymph % (Auto) 18.3, [place] % (Auto) 4.8, Eos % (Auto) 3.3, Baso % (Auto) 1.1, Neut # (Auto) 9.4 H, Lymph # (Auto) 2.4, [place] # (Auto) 0.6, Eos # (Auto) 0.4, Baso # (Auto) 0.2, PT 10.9, INR 1.01, APTT 29.7, D-Dimer 0.65 H, Sodium 137, Potassium 3.9, Chloride 99, Carbon Dioxide 27, Anion Gap 14.9, BUN 33 H, Creatinine 1.10 H, Estimated Creat Clear 72, Estimated GFR 49 L, Est GFR ( Amer) 60, Glucose 131 H, Calcium 9.2, Magnesium 1.8, Total Bilirubin 0.5, AST 30, ALT 32, Alkaline Phosphatase 72, Troponin I < 0.01, NT-Pro-B Natriuret Pep < 20.0, Total Protein 6.6, Albumin 4.4, Globulin 2.2, Albumin/Globulin Ratio 2.0 H, TSH 0.21 L, Thyroxine (T4) 14.6 H 03/22/23 05:48: POC Glucose 98 03/22/23 06:10: WBC 8.0 D, RBC 4.60, Hgb 13.4 D, Hct 40.9, MCV 88.8, MCH 29.1, MCHC 32.8, RDW 13.4, Plt Count 243, MPV 8.1, Neut % (Auto) 65.6, Lymph % (Auto) 26.0, [place] % (Auto) 4.6, Eos % (Auto) 2.7, Baso % (Auto) 1.0, Neut # (Auto) 5.3, Lymph # (Auto) 2.1, [place] # (Auto) 0.4, Eos # (Auto) 0.2, Baso # (Auto) 0.1, Sodium 136, Potassium 4.4, Chloride 103, Carbon Dioxide 28, Anion Gap 9.4, BUN 26 H, Creatinine 0.90, Estimated Creat Clear 82, Estimated GFR 62, Est GFR ( Amer) 75 D, Glucose 94 D, Calcium 8.9, Total Bilirubin 0.5, AST 28, ALT 30, Alkaline Phosphatase 63, Troponin I < 0.01, Total Protein 5.7 L, Albumin 3.5 D, Globulin 2.2, Albumin/Globulin Ratio 1.6, Triglycerides 128, Cholesterol 61 L, LDL Cholesterol Direct 34.03 L, VLDL Cholesterol 26, HDL Cholesterol 15 L, Cholesterol/HDL Ratio 4.1 H I & O for Last 24 hours: Intake & Output 03/19/23 03/20/23 03/21/23 03/22/23 23:59 23:59 23:59 23:59 Intake Total 780 / 780 Balance 780 / 780 Weight 97.3 kg Constitutional Constitutional: no acute distress and obese *Routine HEENT Exam Head: Present normocephalic and atraumatic ENT: Present mucous membranes moist *Routine Neck Exam Neck: Present supple, full ROM and normal carotid upstroke; Absent JVD, carotid bruit or lymphadenopathy *Routine Respiratory Exam Respiratory: Present CTA bilaterally, normal respiratory effort, able to speak in complete sentences and symmetric chest movement; Absent rhonchi, wheezes or crackles *Routine Cardiovascular Exam Cardiovascular: Present RRR, Normal S1 and Normal S2; Absent murmur or gallop *Routine Abdominal Exam Abdominal: Present soft and normoactive bowel sounds; Absent tenderness, distended or organomegaly *Routine Rectal Exam Patient deferred: visual exam *Routine Exam Patient deferred: external exam *Routine Extremities Exam Extremities: Present full ROM, pulses intact and normal capillary refill; Absent cyanosis, clubbing or edema *Routine Skin Exam Skin: Present intact and warm; Absent erythema *Routine Neurological Exam Neurological: Present alert, oriented X3 and CN II-XII intact; Absent sensory deficit or motor deficit Routine Psychiatric Exam Psychiatric: Present normal affect Results Data Completed and Pending Labs on day of discharge: Labs from last 24 hours 03/22/23 03/22/23 03/22/23 06:10 05:48 02:14 WBC 8.0 D 13.0 H RBC 4.60 4.96 Hgb 13.4 D 14.9 Hct 40.9 43.8 MCV 88.8 88.2 MCH 29.1 30.1 MCHC 32.8 34.1 RDW 13.4 13.4 Plt Count 243 263 MPV 8.1 8.3 Neut % (Auto) 65.6 72.3 Lymph % (Auto) 26.0 18.3 [place] % (Auto) 4.6 4.8 Eos % (Auto) 2.7 3.3 Baso % (Auto) 1.0 1.1 Neut # (Auto) 5.3 9.4 H Lymph # (Auto) 2.1 2.4 [place] # (Auto) 0.4 0.6 Eos # (Auto) 0.2 0.4 Baso # (Auto) 0.1 0.2 PT 10.9 INR 1.01 APTT 29.7 D-Dimer 0.65 H Sodium 136 137 Potassium 4.4 3.9 Chloride 103 99 Carbon Dioxide 28 27 Anion Gap 9.4 14.9 BUN 26 H 33 H Creatinine 0.90 1.10 H Estimated Creat Clear 82 72 Estimated GFR 62 49 L Est GFR ( Amer) 75 D 60 Glucose 94 D 131 H POC Glucose 98 Calcium 8.9 9.2 Magnesium 1.8 Total Bilirubin 0.5 0.5 AST 28 30 ALT 30 32 Alkaline Phosphatase 63 72 Troponin I < 0.01 < 0.01 NT-Pro-B Natriuret Pep < 20.0 Total Protein 5.7 L 6.6 Albumin 3.5 D 4.4 Globulin 2.2 2.2 Albumin/Globulin Ratio 1.6 2.0 H Triglycerides 128 Cholesterol 61 L LDL Cholesterol Direct 34.03 L VLDL Cholesterol 26 HDL Cholesterol 15 L Cholesterol/HDL Ratio 4.1 H TSH 0.21 L Thyroxine (T4) 14.6 H DS: Diagnosis Discharge Diagnosis (1) Atrial fibrillation with rapid ventricular response: Status: Acute Code(s): I48.91 - Unspecified atrial fibrillation (2) Hypothyroidism: Status: Acute Code(s): E03.9 - Hypothyroidism, unspecified Qualifiers: Hypothyroidism type: unspecified Qualified Code(s): E03.9 - Hypothyroidism, unspecified (3) Non-insulin treated type 2 diabetes mellitus: Status: Acute Code(s): E11.9 - Type 2 diabetes mellitus without complications (4) Hypertension: Status: Acute Code(s): I10 - Essential (primary) hypertension Qualifiers: Hypertension type: primary hypertension Qualified Code(s): I10 - Essential (primary) hypertension (5) Obesity (BMI 30-39.9): Status: Acute Code(s): E66.9 - Obesity, unspecified (6) History of stomach cancer: Status: Inactive Code(s): Z85.028 - Personal history of other malignant neoplasm of stomach Meds Home Medications and Allergies Home Medications Medication Instructions Recorded Confirmed Type aspirin 81 mg tablet,delayed 81 mg PO DAILY Heart disease 03/09/17 03/22/23 History release fexofenadine 180 mg tablet 360 mg PO BID Allergy symptoms 03/09/17 03/22/23 History metformin 500 mg tablet 500 mg PO BID Diabetes 03/09/17 03/22/23 History meloxicam 15 mg tablet (Mobic) 15 mg PO DAILY Pain 03/13/17 03/22/23 History atorvastatin 80 mg tablet 80 mg PO HS 03/22/23 03/22/23 History azilsartan medoxomil 40 1 tab PO DAILY 30 days #30 tabs 03/22/23 Rx mg-chlorthalidone 12.5 mg tablet (Edarbyclor) carvedilol 25 mg tablet 25 mg PO BID 30 days #60 tabs 03/22/23 Rx cyanocobalamin (vitamin B-12) 1,000 mcg PO DAILY 03/22/23 03/22/23 History 1,000 mcg tablet (Vitamin B-12) empagliflozin 10 mg tablet 10 mg PO DAILY 03/22/23 03/22/23 History (Jardiance) finerenone 20 mg tablet (Kerendia) 20 mg PO DAILY 03/22/23 03/22/23 History levothyroxine 125 mcg capsule 125 mcg PO DAILY 30 days #30 caps 03/22/23 Rx pantoprazole 40 mg tablet,delayed 40 mg PO DAILY 30 days #30 tabs 03/22/23 Rx release rivaroxaban 20 mg tablet 20 mg PO DAILY 30 days #30 tabs 03/22/23 Rx semaglutide 1 mg/dose (4 mg/3 mL) 2 mg SQ WEEKLY 03/22/23 03/22/23 History subcutaneous pen injector (Ozempic) New Prescriptions to Start Prescriptions: azilsartan med-chlorthalidone [Edarbyclor] Michael,Quincy carvedilol Michael,Quincy levothyroxine Quincy Rodriguez pantoprazole Michael,Quincy rivaroxaban Quincy Rodriguez Allergies Allergy/AdvReac Type Severity Reaction Status Date / Time strawberry Allergy Unknown ANGIOEDEMA Verified 11/07/19 07:51 [From STRAWBERRIES (FOOD/DRUG)] Tetracyclines [TETRACYCLINES] Allergy Unknown Verified 11/07/19 07:51 From STRAWBERRIES (FOOD/DRUG) Allergy Unknown ANGIOEDEMA Uncoded 01/31/17 14:27 Discharge Plan Disposition Patient Disposition: Home, Self-Care Condition: Good Follow up Plan Follow up with: Ziyad Salomon MD [Primary Care Provider] - 03/25/23 Robi Trevizo MD [Staff Physician] - 03/29/23 2:45 pm Prescriptions/Medication Reconciliation: New carvedilol 25 mg Tablet 25 mg PO BID 30 Days Qty: 60 0RF rivaroxaban 20 mg tablet 20 mg PO DAILY 30 Days Qty: 30 1RF pantoprazole 40 mg Tablet,Delayed Release (Dr/Ec) 40 mg PO DAILY 30 Days Qty: 30 0RF levothyroxine 125 mcg capsule 125 mcg PO DAILY 30 Days Qty: 30 0RF Edarbyclor 40-12.5 mg tablet 1 tab PO DAILY 30 Days Qty: 30 0RF Rx Instructions: Hold if Systolic blood pressure <110 Continued metformin 500 MG tablet 500 mg PO BID fexofenadine 180 MG tablet 360 mg PO BID aspirin 81 MG tablet,delayed release (DR/EC) 81 mg PO DAILY meloxicam [Mobic] 15 MG tablet 15 mg PO DAILY cyanocobalamin (vitamin B-12) [Vitamin B-12] 1,000 mcg tablet 1,000 mcg PO DAILY Patient Comments: TAKE 1 TABLET BY MOUTH EVERY DAY FOR 90 DAYS Jardiance 10 mg tablet 10 mg PO DAILY Patient Comments: TAKE 1 TABLET BY MOUTH EVERY MORNING Kerendia 20 mg tablet 20 mg PO DAILY Patient Comments: TAKE 1 TABLET BY MOUTH EVERY DAY atorvastatin 80 mg Tablet 80 mg PO HS Ozempic 1 mg/dose (4 mg/3 mL) pen injector 2 mg SQ WEEKLY Discontinued carvedilol 12.5 mg tablet 12.5 mg PO BID Patient Comments: TAKE 1 TABLET BY MOUTH TWICE A DAY Edarbyclor 40-12.5 mg tablet 1 tab PO DAILY Patient Comments: TAKE 1 TABLET BY MOUTH EVERY DAY levothyroxine 137 mcg tablet 137 mcg PO DAILY Patient Comments: TAKE 1 TABLET BY MOUTH EVERY DAY FOR 30 DAYS Problem Reconciliation Problems Reviewed?: Yes Patient Discharge Instructions ACTIVITY: Continue current activity DIET: continue same diet Patient Instructions: Atrial Fibrillation, DI for Atrial Fibrillation Providers Primary Care Provider: Ziyad Salomon Admgerardo Provider: Quincy Rodriguez Attending Provider: Quincy Rodriguez
[2023-03-22 15:05] LABS: POC Glucose,Bedside 92 (70-110)
--- NOTE | 2023-03-23 15:41 | CARE MANAGER ---
Contacted patient related to hospital discharge. She is aware of new medications and medication changes. She is also aware of follow up appointments and denies any questions or concerns. CHIP Woods
== END 2023-03-22 15:12 | disposition home or self-care (01) ==
LOC: ER 04:38 → 2ND 05:39
PROVIDERS: Nurse Practitioner Family; Admitting Provider Internal Medicine Adolescent Medicine; Emergency Provider Emergency Medicine; PCP Internal Medicine Adolescent Medicine; Visit Provider Internal Medicine Adolescent Medicine
DX: I48.91 Unspecified atrial fibrillation (principal); E03.9 Hypothyroidism, unspecified; E11.9 Type 2 diabetes mellitus without complications; I10 Essential (primary) hypertension; E66.9 Obesity, unspecified; Z85.028 Personal history of other malignant neoplasm of stomach; I95.9 Hypotension, unspecified; E86.0 Dehydration; Z79.899 Other long term (current) drug therapy; R06.02 Shortness of breath
CPT/HCPCS: 36415; 71275; 80053; 80061; 82962; 83735; 83880; 84436; 84443; 84484; 85025; 85378; 85610; 85730; 93005; 93306; 99291; G0378; J2405; Q9967

== ENCOUNTER 2023-03-24 07:56 | Outpatient (CLI) | payer MEDICARE, SELFPAY ==
[2023-03-24 09:07] LABS: Hemoglobin A1C 5.5 % (4.0-6.0)
[2023-03-24 09:30] LABS: Anion Gap 12.5 mEq/L (5-15); Blood Urea Nitrogen 22 mg/dl (7-17); Calcium 9.5 mg/dl (8.4-10.2); Carbon Dioxide 26 mmol/L (22.0-30.0); Chloride 105 mmol/L (98-107); Estimated Glomerular Filt Rate 71 ml/min (>60); GFR (African American) 86 ML/MIN (>60); Glucose 99 mg/dl (74-100); Potassium 4.5 mmoL/L (3.5-5.1); Sodium 139 mmol/L (136-145)
== END 2023-03-24 23:59 ==
PROVIDERS: PCP Internal Medicine Adolescent Medicine; Visit Provider Internal Medicine Adolescent Medicine
DX: E11.9 Type 2 diabetes mellitus without complications (principal); Z79.84 Long term (current) use of oral hypoglycemic drugs; Z79.85 Long-term (current) use of injectable non-insulin antidiabetic drugs
CPT/HCPCS: 36415; 80048; 83036

== ENCOUNTER 2023-06-02 08:20 | Outpatient (CLI) | payer MEDICARE, SELFPAY ==
[2023-06-02 09:10] LABS: Basophils # 0.1 K/mm3 (0-0.2); Basophils % 1.7 % (0.1-2.0); Eosinophils # 0.2 K/mm3 (0.0-0.4); Eosinophils % 3.8 % (0.1-12.0); Hematocrit 43.6 % (37.0-47.0); Hemoglobin 14.1 g/dL (12.2-16.2); Lymphocytes # 1.6 K/mm3 (0.7-4.5); Lymphocytes % 33.2 % (10-50); Mean Corpuscular HGB Conc 32.3 g/dL (31.8-35.4); Mean Corpuscular Hemoglobin 29.6 pg (27.0-31.2); Mean Corpuscular Volume 91.5 fl (81-99); Mean Platelet Volume 8.1 fl (7.4-10.4); Monocytes # 0.4 K/mm3 (0.1-1.0); Monocytes % 8.1 % (1.7-9.3); Neutrophils # 2.6 K/mm3 (1.8-7.8); Neutrophils % 53.3 % (37.0-80.0); Platelet Count 219 K/mm3 (142-424); Red Blood Count 4.76 M/mm3 (4.20-5.40); Red Cell Distribution Width 14.1 % (11.5-17.5); White Blood Count 4.9 K/mm3 (4.8-10.8)
[2023-06-02 09:34] LABS: Chloride 105 mmol/L (98-107); Potassium 3.6 mmoL/L (3.5-5.1); Sodium 138 mmol/L (136-145)
[2023-06-02 09:36] LABS: Blood Urea Nitrogen 24 mg/dl (7-17); Estimated Glomerular Filt Rate 71 ml/min (>60); GFR (African American) 86 ML/MIN (>60)
[2023-06-02 09:37] LABS: Alanine Aminotransferase 23 U/L (12-78); Albumin Level 3.7 g/dl (3.5-5.0); Albumin/Globulin Ratio 1.9 (1.1-1.8); Alkaline Phosphatase 77 U/L (38-126); Anion Gap 10.6 mEq/L (5-15); Aspartate Amino Transferase 27 U/L (14-36); Bilirubin,Total 0.5 mg/dl (0.2-1.3); Calcium 9.2 mg/dl (8.4-10.2); Carbon Dioxide 26 mmol/L (22.0-30.0); Cholesterol 79 mg/dl (140-200); Glucose 99 mg/dl (74-100); HDL Cholesterol 26 mg/dl (40-60); Total Protein,Serum 5.7 g/dl (6.3-8.2); Triglycerides 91 mg/dl (30-150); VLDL Cholesterol 18 mg/dL (0-40)
[2023-06-02 09:48] LABS: Direct LDL Cholesterol 48.35 mg/dL (100-129)
[2023-06-02 09:53] LABS: T4 (Thyroxine) 12.1 ug/dl (5.53-11.0)
[2023-06-02 10:06] LABS: Thyroid Stimulating Hormone 5.68 uIU/mL (0.465-4.68)
[2023-06-02 10:40] LABS: Hemoglobin A1C 5.7 % (4.0-6.0)
[2023-06-02 10:52] LABS: Free Thyroxine Index 4.2 ug/dL (5.93-13.13); Triiodothryronine (T3) Uptake 35 % (23.5-40.5)
== END 2023-06-02 23:59 | disposition home or self-care (01) ==
LOC: LAB 08:23
PROVIDERS: PCP Internal Medicine Adolescent Medicine; Visit Provider Internal Medicine Adolescent Medicine
DX: E11.9 Type 2 diabetes mellitus without complications (principal); E78.5 Hyperlipidemia, unspecified; E53.8 Deficiency of other specified B group vitamins; E03.9 Hypothyroidism, unspecified; Z68.37 Body mass index [BMI] 37.0-37.9, adult; Z79.84 Long term (current) use of oral hypoglycemic drugs; Z79.85 Long-term (current) use of injectable non-insulin antidiabetic drugs
CPT/HCPCS: 36415; 80053; 80061; 83036; 84436; 84443; 84479; 85025

== ENCOUNTER 2023-10-30 11:50 | Day surgery (SDC) | payer MEDICARE, SELFPAY ==
[2023-10-26 14:55] VITALS: BMI 37.2
[2023-10-30] MEDS: LACTATED RINGERS 1000ML 1,000 ML 25 ML IV (12:05)
--- NOTE | 2023-10-30 12:17 | EXP.ANES.CKL ---
[facility] Disclaimer: The information contained in this section may have been updated after the patient was seen, as this information can be updated by other users. Medical History History of stomach cancer Hypertension Obesity (BMI 30-39.9) Non-insulin treated type 2 diabetes mellitus Atrial fibrillation with rapid ventricular response M?ni?re's disease Family History Other No significant family history Social History Smoking Status: Never smoker alcohol intake: current alcohol intake frequency: a few times a month substance use type: denies use current occupational status: employed Travel in the last 8 weeks: None household members: family housing: house caffeine: Yes [facility] Anesthesia Checklist Patient Identification Patient Identification: Arm Band and Verbal (Name & ) Structural Data Planned Operative Procedure/s: Colonoscopy Consent for Planned Operative Procedure(s) Verified: Yes Verified Documents: Surgical Consent and History and Physical NPO Status Verified Time NPO: 00:00 Additional verifications Anesthesia Reactions: No Hx Blood Transfusions: No Blood Transfusion Reaction: No Airway Assessment Mallampati Score:: Class III C-Spine Mobility Assessed: Yes TMJ Mobility Assessed: Yes Dentition: Good Dentition Neurological Assessment Level of Consciousness: Awake Hx Seizures: No Numbness or tingling in extremities: No Anesthesia Plan Anesthesia Risk discussed: Yes Anesthesia Plan: Verified ASA Class: III Anesthesia Type: MAC
[2023-10-30 12:20] LABS: POC Glucose,Bedside 90 (70-110)
[2023-10-30 12:23] VITALS: BP 121/81; PULSE 76; RESP 18; TEMP 36.9; O2SAT 96
[2023-10-30 12:37] VITALS: O2SAT 96
--- NOTE | 2023-10-30 13:08 | HMH.PROCNOTE ---
[facility] Procedure Note Date: 10/30/23 Time: 13:08 Procedure Note:: Colonoscopy Procedure Report: Colonoscopy Endoscopist: Dann Ibarra II, MD Referring physician: Ziyad Salomon M.D./Sabas Trinidad MD Date of Procedure: October 30, 2023 Equipment: Olympus 190 variable stiffness pediatric colonoscope Sedation: MAC sedation Indication: Mrs. Martínez is a 68-year-old female who is here for follow-up surveillance colonoscopy. The patient did have a colonoscopy in June 2019 and had a posterior midline anal fissure. Her last colonoscopy was at [facility] with az 2 years ago. She does state that her mother and father both had colon cancer. 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 She does have a history of IBS and is on Gimoti. She does get some intermittent alternating diarrhea to constipation. She did have her SVT/atrial fibrillation cardioverted. She reports no abdominal pain, weight loss, change in her bowel habits or rectal bleeding. Procedure: Prior to the procedure, a history and physical exam was performed, and patient's medications and allergies were reviewed. The risks, benefits and alternatives of the sedation and procedure were discussed with the patient. All questions were answered and informed consent was obtained. The patient was brought to the procedure room. Patient identification and proposed procedure were verified by the physician and the nurse. The patient was placed in a left lateral decubitus position and the scope was passed under direct vision. Throughout the procedure, the patient's blood pressure, pulse, and oxygen saturations were monitored continuously. The colonoscopy was accomplished without difficulty. The patient tolerated the procedure well. Findings: On digital rectal examination there was normal rectal tone. There were no external hemorrhoids. The colonoscope was introduced through the anal canal to the rectum and advanced to the cecum. The ileocecal valve and appendiceal orifice were identified. The scope was advanced a short distance into the ileum which appeared grossly normal. The scope was then withdrawn into the colon. The cecum, ascending and transverse colon and mucosa were grossly normal. There were scattered diverticuli throughout the descending and sigmoid colon (LEFT colon). The rectum itself was normal. Upon retroflexion within the rectum there were grade 1 internal hemorrhoids. The preparation was excellent throughout with [place] Preparation Score of 9. The cecal time was 10 minutes. Impression: 1. Left-sided diverticulosis 2. Grade 1 internal hemorrhoids Plan: I would encourage bulking fiber supplementation and continuation of the Gimoti. We will continue surveillance based upon her strong family history.
[2023-10-30 13:12] VITALS: BP 96/55; PULSE 93; RESP 20; TEMP 36.6; O2SAT 94
[2023-10-30 13:22] VITALS: BP 95/53; PULSE 84; RESP 18; O2SAT 93
[2023-10-30 13:32] VITALS: BP 100/56; PULSE 85; RESP 18; O2SAT 93
[2023-10-30 14:24] VITALS: BP 105/58; PULSE 84; RESP 20; O2SAT 96
== END 2023-10-30 14:24 | disposition home or self-care (01) ==
PROVIDERS: PCP Internal Medicine Adolescent Medicine; Visit Provider Internal Medicine Gastroenterology
DX: Z12.11 Encounter for screening for malignant neoplasm of colon (principal); Z80.0 Family history of malignant neoplasm of digestive organs; R19.7 Diarrhea, unspecified; K59.00 Constipation, unspecified; K57.30 Diverticulosis of large intestine without perforation or abscess without bleeding; K64.0 First degree hemorrhoids; E11.8 Type 2 diabetes mellitus with unspecified complications; Z79.85 Long-term (current) use of injectable non-insulin antidiabetic drugs
CPT/HCPCS: G0105; 82962; J7120

== ENCOUNTER 2023-11-17 08:31 | Outpatient (CLI) | payer MEDICARE, SELFPAY ==
[2023-11-17 09:46] LABS: Hemoglobin A1C 5.5 % (4.0-6.0)
[2023-11-17 09:57] LABS: Anion Gap 11.3 mEq/L (5-15); Blood Urea Nitrogen 23 mg/dl (7-17); Calcium 9.2 mg/dl (8.4-10.2); Carbon Dioxide 26 mmol/L (22.0-30.0); Chloride 104 mmol/L (98-107); Estimated Glomerular Filt Rate 62 ml/min (>60); GFR (African American) 75 ML/MIN (>60); Glucose 96 mg/dl (74-100); Potassium 4.3 mmoL/L (3.5-5.1); Sodium 137 mmol/L (136-145)
[2023-11-17 10:17] LABS: Free Thyroxine Index 3.7 ug/dL (5.93-13.13); T4 (Thyroxine) 10.9 ug/dl (5.53-11.0); Triiodothryronine (T3) Uptake 34 % (23.5-40.5)
[2023-11-17 10:31] LABS: Thyroid Stimulating Hormone 5.69 uIU/mL (0.465-4.68)
== END 2023-11-17 23:59 | disposition home or self-care (01) ==
LOC: LAB 08:33
PROVIDERS: PCP Internal Medicine Adolescent Medicine; Visit Provider Internal Medicine Adolescent Medicine
DX: E11.69 Type 2 diabetes mellitus with other specified complication (principal); E03.9 Hypothyroidism, unspecified
CPT/HCPCS: 36415; 80048; 83036; 84436; 84443; 84479

== ENCOUNTER 2023-12-09 08:18 | Outpatient (CLI) | payer MEDICARE, SELFPAY ==
[2023-12-09 09:00] LABS: Hemoglobin A1C 5.4 % (4.0-6.0)
[2023-12-09 09:26] LABS: Chloride 106 mmol/L (98-107); Potassium 4.6 mmoL/L (3.5-5.1); Sodium 141 mmol/L (136-145)
[2023-12-09 09:28] LABS: Blood Urea Nitrogen 18 mg/dl (7-17); Estimated Glomerular Filt Rate 71 ml/min (>60); GFR (African American) 86 ML/MIN (>60)
[2023-12-09 09:29] LABS: Alanine Aminotransferase 38 U/L (12-78); Alkaline Phosphatase 66 U/L (38-126); Anion Gap 12.6 mEq/L (5-15); Aspartate Amino Transferase 35 U/L (14-36); Bilirubin,Direct 0.1 mg/dl (0.0-0.4); Bilirubin,Indirect 0.3 mg/dL (0.0-0.9); Bilirubin,Total 0.4 mg/dl (0.2-1.3); Bilirubin,Unconjugated 0.3 mg/dL (0.0-1.1); Calcium 9.1 mg/dl (8.4-10.2); Carbon Dioxide 27 mmol/L (22.0-30.0); Cholesterol 76 mg/dl (140-200); Glucose 113 mg/dl (74-100); Total Protein,Serum 5.8 g/dl (6.3-8.2); Triglycerides 92 mg/dl (30-150); VLDL Cholesterol 18 mg/dL (0-40)
[2023-12-09 09:30] LABS: Chol/HDL Ratio 2.7 (1-3.5); HDL Cholesterol 28 mg/dl (40-60)
[2023-12-09 09:38] LABS: NT Pro Brain Natriuretic Pep. < 20.0 pg/mL (0-125)
[2023-12-09 09:41] LABS: Direct LDL Cholesterol 34.85 mg/dL (100-129)
== END 2023-12-09 23:59 | disposition home or self-care (01) ==
PROVIDERS: PCP Internal Medicine Adolescent Medicine; Visit Provider Internal Medicine Interventional Cardiology
DX: E78.00 Pure hypercholesterolemia, unspecified (principal)
CPT/HCPCS: 36415; 80048; 80061; 80076; 83036; 83880

== ENCOUNTER 2024-03-08 08:25 | Outpatient (CLI) | payer MEDICARE, SELFPAY ==
[2024-03-08 09:22] LABS: Basophils % 0.8 % (0.1-2.0); Eosinophils # 0.2 K/mm3 (0.0-0.4); Eosinophils % 4.1 % (0.1-12.0); Hematocrit 42.3 % (37.0-47.0); Hemoglobin 13.7 g/dL (12.2-16.2); Lymphocytes # 1.7 K/mm3 (0.7-4.5); Lymphocytes % 34.1 % (10-50); Mean Corpuscular HGB Conc 32.4 g/dL (31.8-35.4); Mean Corpuscular Hemoglobin 29.6 pg (27.0-31.2); Mean Corpuscular Volume 91.4 fl (81-99); Mean Platelet Volume 9.8 fl (7.4-10.4); Monocytes # 0.4 K/mm3 (0.1-1.0); Monocytes % 8.8 % (1.7-9.3); Neutrophils # 2.5 K/mm3 (1.8-7.8); Neutrophils % 51.8 % (37.0-80.0); Platelet Count 246 K/mm3 (142-424); Red Blood Count 4.63 M/mm3 (4.20-5.40); Red Cell Distribution Width 12.9 % (11.5-17.5); White Blood Count 4.9 K/mm3 (4.8-10.8)
[2024-03-08 09:58] LABS: Alanine Aminotransferase 24 U/L (12-78); Albumin/Globulin Ratio 2.1 (1.1-1.8); Alkaline Phosphatase 65 U/L (38-126); Anion Gap 15.4 mEq/L (5-15); Aspartate Amino Transferase 27 U/L (14-36); Bilirubin,Direct 0.1 mg/dl (0.0-0.4); Bilirubin,Total 0.4 mg/dl (0.2-1.3); Blood Urea Nitrogen 27 mg/dl (7-17); Carbon Dioxide 27 mmol/L (22.0-30.0); Chloride 102 mmol/L (98-107); Chol/HDL Ratio 3.8 (1-3.5); Cholesterol 83 mg/dl (140-200); Estimated Glomerular Filt Rate 71 ml/min (>60); GFR (African American) 86 ML/MIN (>60); Globulin 1.9 g/dL (1.3-3.2); Glucose 96 mg/dl (74-100); HDL Cholesterol 22 mg/dl (40-60); Potassium 4.4 mmoL/L (3.5-5.1); Sodium 140 mmol/L (136-145); Total Protein,Serum 5.9 g/dl (6.3-8.2); Triglycerides 92 mg/dl (30-150); VLDL Cholesterol 18 mg/dL (0-40)
[2024-03-08 10:06] LABS: Hemoglobin A1C 5.4 % (4.0-6.0)
[2024-03-08 10:10] LABS: Direct LDL Cholesterol 45.43 mg/dL (100-129)
[2024-03-08 10:28] LABS: Thyroid Stimulating Hormone 5.26 uIU/mL (0.465-4.68)
[2024-03-08 13:14] LABS: Free Thyroxine Index 4.1 ug/dL (5.93-13.13); Triiodothryronine (T3) Uptake 34 % (23.5-40.5)
[2024-03-08 13:28] LABS: Thyroid Stimulating Hormone 5.44 uIU/mL (0.465-4.68)
[2024-03-09 08:21] LABS: Triiodothyronine (T3) Total 95 ng/dL (71-180)
== END 2024-03-08 23:59 | disposition home or self-care (01) ==
LOC: LAB 08:29
PROVIDERS: PCP Internal Medicine Adolescent Medicine; Referring Provider Internal Medicine Adolescent Medicine; Visit Provider Internal Medicine Interventional Cardiology
DX: E03.9 Hypothyroidism, unspecified (principal); E11.69 Type 2 diabetes mellitus with other specified complication; E78.5 Hyperlipidemia, unspecified
CPT/HCPCS: 36415; 80053; 80061; 82248; 83036; 84436; 84439; 84443; 84479; 84480; 85025

== ENCOUNTER 2024-07-16 10:36 | Outpatient (CLI) | payer MEDICARE, SELFPAY ==
--- NOTE | 2024-07-16 10:39 | FL_ITS ---
FINAL REPORT CLINICAL HISTORY: DYSPHAGIA 2.15 fluouro 240.40 dap FINDINGS: FLUOROSCOPY LESS THAN 1 HOUR HISTORY: Fluoroscopy guidance. Fluoroscopic guidance was provided for barium swallow. A total of 2.15 minutes of fluoroscopy time were used. Total DAP: 240.40 mGy IMPRESSION: As above. Reviewed, Interpreted and Dictated by Divina Meyer MD Transcribed by Anitha Saravia Authenticated and [facility]
--- OUTSIDE RECORDS SUMMARY | 2024-07-16 10:39 | XMS_ITS | Continuity of Care Document ---
Author Organization [facility], [facility] [address] Address [address] [place] [address] Care Team Providers Care Surgical Physician Assistant Name Role Phone KISHA AREVALO Medical Oncologist [phone] RAYMUNDO SNYDER Primary Care Provider [phone] Assessment No assessment recorded. Plan of Treatment Reminders Order Date Submit Date Provider Last Modified By Organization Details Last Modified Time Details Appointments None recorded. Lab None recorded. Referral None recorded. Procedures None recorded. Surgeries None recorded. Imaging None recorded. Medication Orders pilocarpi ne 5 mg tablet 2024 025 petra [id number], [address] [place], [address], 17:59:27 Patient TargetsNo targets recorded. Patient Instructions Encounter Date Encounter Id Patient Instructions Last Modified By Organization Details Last Modified Time 06/20/2024 [id number] 1. Discussed Shalonda and cardiac medications which contribute to xerostomia. Consider dc/ing Shalonda 2.Consider Neurology consult to rule out MS and myasthenia gravis, referral made to Dr. Burgos for dysarthria 3. Begin new RX- Pilocarpine 5mg 1po up to TID 4. F/u prn [email or web address] Not available 06/20/2024 13:51:10 Interestingly my examination reveals a profuse amount of saliva easy to express out of the Stensen's ducts through the parotid glands and from the Natalee's ducts from the submandibular glands. This may be a perception rounded actuality. Because she is so symptomatic, a trial with Estefanía Hansel or Salagen is reasonable. She has some dysarthria and difficulty handling food with some choking and it may be reasonable to have a dysphagia consult and evaluation by neurology to rule out entities such as myasthenia or MS. Discussed that discontinuing her antihistamine will help with the dry sensation though she has intermittent urticaria which is also problematic. Her many cardiac medications also likely contribute to her sensation of dryness. Sjogren's panel is negative. There are no easy answers for her problems [email or web address] Not available 06/21/2024 08:27:40 Reason for Referral None Reported. Problems No Known Problems Procedures Surgical History Date Name Laterality Status Provider Name and Address Organization Details Recorded Time 04/12/19 22 Total knee arthroplasty completed Fco Cristina [facility] 04/29/2021 10:43:48 01/19/20 21 Synvisc One Injection completed AZALIA FARRIS PA-C [address] [place], [address], [facility] 01/18/2021 14:56:33 12/08/19 21 Total knee arthroplasty completed Fco Cristina [facility] 12/30/2020 10:09:09 09/24/19 20 Synvisc One Injection completed Jaclyn Boucher [facility] 09/24/2019 10:59:59 11/20/19 19 Synvisc One Injection completed THOM HILL MD [address] [place], [address], [facility] 11/19/2018 13:40:58 03/08/19 19 Injection Joint/Bursa, Major completed Kisha Max [facility] 03/08/2018 12:16:04 06/16/19 18 Suture/Staple removal completed Ar DAVISON PA-C [address] [place], [address], [facility] 06/15/2017 14:26:48 Morning Babysitter Surgery completed Olivia Rothman [facility] 05/23/2017 14:42:12 Imaging Results None recorded. Procedure Notes None recorded. Medical Equipment None Reported. Allergies Allergen ID Allergen Name Allergen Category Reaction Reaction Severity Criticality Documentation Date Start Date Code Code System Note Provider Name and Address Organization Details Recorded Time 753508 tetracycl ine medicatio n rash Not available Not available 05/23/2017 93998 RxNorm Oliviaruthy Rothman [facility] 8 14:39:03 Medications Name Sig Start Date Stop Date Status Note LastModified by Organization Details LastModified Time metformin 500 mg tablet Take 1 tablet twice a day by oral route. 06/20 completed Not Available Not Available Not Available propafenone 150 mg tablet TAKE 1 TABLET BY MOUTH EVERY 8 HOURS FOR 90 DAYS active Not Available Not Available No t Available pilocarpine 5 mg tablet Take 1 tablet 3 times a day by oral route for 30 days. 2024 active Not Available Not Available Not Avai lable atorvastati n 80 mg tablet TAKE 1 TABLET BY MOUTH EVERY DAY AT BEDTIME FOR 90 DAYS active Not Available Not Available No t Available carvedilol 25 mg tablet TAKE 1 TABLET BY MOUTH TWICE A DAY WITH FOOD active Not Available Not Available No t Available valacyclovi r 1 gram tablet TAKE ONE TABLET BY MOUTH TWICE DAILY -- FINISH ALL MEDICINE -- 06/20 completed Not Available Not Available Not Available meloxicam 15 mg tablet TAKE 1 TABLET BY MOUTH EVERY OTHER DAY active Not Available Not Available No t Available Medrol (Diogo) 4 mg tablets in a dose pack as directed 06/20 completed Not Available Not Available Not Available valsartan 160 mg-hydrochl orothiazide 12.5 mg tablet TAKE 1 TABLET BY MOUTH EVERY DAY 06/20 completed Not Available Not Available Not Available valsartan 80 mg tablet TAKE 1 TABLET BY MOUTH EVERY DAY 06/20 completed Not Available Not Available Not Available fexofenadin e 180 mg tablet Take 1 tablet every day by oral route. active Not Available Not Available No t Available bisoprolol fumarate 5 mg tablet Take 1 tablet every day by oral route. 06/20 completed Not Available Not Available Not Available erythromyci n 5 mg/gram (0.5 %) eye ointment apply in each affected eye FOUR TIMES DAILY FOR 10 DAYS 06/20 completed Not Available Not Available Not Available levothyroxi ne 125 mcg tablet TAKE 1 TABLET BY MOUTH EVERY DAY FOR 90 DAYS 06/20 completed Not Available Not Available Not Available ranitidine 300 mg capsule Take 1 capsule every day by oral route. 06/20 completed Not Available Not Available Not Available lisinopril 5 mg tablet Take 1 tablet every day by oral route. 10/13 completed Not Available Not Available Not Available Kimberly 10 mg-325 mg tablet Take 1 tablet every 4-6 hours by oral route as needed. 06/20 completed Not Available Not Available Not Available gabapentin 100 mg capsule TAKE 1 CAPSULE BY MOUTH THREE TIMES A DAY NEEDED FOR SHINGLES PAIN FOR 10 DAYS 06/20 completed Not Available Not Available Not Available doxycycline hyclate 100 mg tablet TAKE ONE TABLET BY MOUTH TWICE DAILY FOR 10 DAYS -- FINISH ALL MEDICINE -- 06/20 completed Not Available Not Available Not Available Vitamin B-12 1,000 mcg tablet TAKE 1 TABLET BY MOUTH EVERY DAY active Not Available Not Available No t Available valsartan 160 mg tablet TAKE 1 TABLET BY MOUTH EVERY DAY FOR 90 DAYS active Not Available Not Available No t Available Synthroid 137 mcg tablet TAKE 1 TABLET BY MOUTH EVERY DAY FOR 90 DAYS active Not Available Not Available No t Available pregabalin 75 mg capsule TAKE 1 CAPSULE BY MOUTH TWICE A DAY 06/20 completed Not Available Not Available Not Available aspirin 06/20 completed Not Available Not Available Not Available levothyroxi ne 150 mcg 06/20 completed Not Available Not Available Not Available doxycycline monohydrate 40 mg capsule,imm ediate - delay release Take 1 capsule every day by oral route. 10/13 completed Not Available Not Available Not Available diclofenac 1 % topical gel APPLY TO BOTH KNEES UP TO 4 TIMES DAILY 06/20 completed Not Available Not Available Not Available sodium,pota ssium,mag sulfates 17.5 gram-3.13 gram-1.6 gram oral soln PLEASE SEE ATTACHED FOR DETAILED DIRECTION S 06/20 completed Not Available Not Available Not Available Xarelto 20 mg tablet TAKE 1 TABLET BY MOUTH EVERY DAY WITH EVENING MEAL active Not Available Not Available No t Available Edarbyclor 40 mg-25 mg tablet Take 1 tablet every day by oral route. active Not Available Not Available No t Available Jardiance 10 mg tablet TAKE 1 TABLET BY MOUTH EVERY MORNING active Not Available Not Available No t Available Kerendia 20 mg tablet TAKE 1 TABLET BY MOUTH EVERY DAY active Not Available Not Available No t Available Ozempic 2 mg/dose (8 mg/3 mL) subcutaneou s pen injector INJECT 2 MG UNDER THE SKIN INTO THE APPROPRIA TE AREA DIRECTED 1 (ONE) TIME PER WEEK. active Not Available Not Available No t Available Vitals Date Recorded Body weight Body mass index (BMI) Body height Body temperature Heart rate Systolic blood pressure Diastolic blood pressure Provider Name and Address Organization Details Last Updated DateTime 5 25705.5 4 g 38.7 kg/m2 160.02 cm 97.5 [degF] 75 /min 128 mm[Hg] 75 mm[Hg] Carmenza Pankaj [facility] 13:03:24 Social History Question Answer Notes LastModified by Organizat [employer] Details LastModified Time Tobacco Smoking Status [facility] 14:42:19 What Was The Date Of Your Most Recent Tobacco Screening? 03/08/2018 Information n ot available 04/02/2019 Sex: Female Functional Status Question Answer Note LastModified by Organ[employer]at [employer] Details LastModified Time What is your level of alcohol consumption? Occasional [email or web address] Information not available 06/20/2024 Mental Status None recorded. Family History Relationship Description Onset Age of this Age Resolved Age Notes LastModified by Organization Details LastModified Time Father Family history of Angina [email or web address] Not available 2024 12:46:22 Father Malignant neoplastic disease Colon [email or web address] Not available 06/20 12:55:37 Father Hearing loss Not purvi ilable 06/20/2024 12:55:48 Father Heart disease [email or web address] Not available 06/20 12:56:09 Father Essential hypertension [email or web address] Not available 12:56:28 Mother Heart disease [email or web address] Not available 06/20 12:56:09 Mother Essential hypertension [email or web address] Not available 12:56:28 Mother Cerebrovascu lar accident [email or web address] Not available 12:56:36 Mother Diabetes mellitus [email or web address] Not available 06/20 12:56:44 Medical History Condition Response Coronary Artery Disease N Gout N Other N Anxiety/Depression N Thyroid Disease Y Kidney Stones N Hyperthyroidism N Heart Arrhythmia Y Hernia N Emphysema N Esophagus/swallowing troubles Y Glaucoma N COPD N Depression N Hypothyroidism Y Lung Disease N Pneumonia N Anesthesia Complications N Gastrointestinal Disease N Anxiety Disorder N Hearing Loss N Arthritis Y Serious Illness or Injuries N Blood Clot N Acid Reflux (GERD) Y Cancer N Stroke N Hoarseness N Blood Thinners Y Alcohol Overuse/Alcohol Abuse N High Cholesterol N Snoring problems Y Liver Disease N Headaches N Kidney Disease N Allergies/Hayfever N Heart Problems Y Heart Conditions N Mental handicap N Chronic Obstructive Pulmonary Disease N Ear or Hearing Problems Y Gallbladder Disease N Migraines N Thyroid Problems Y Goiter N Skin Problems N Anemia N Immune System Disorder N Chest Pain N Stomach trouble Y Heart Attack ([place]) N Ulcers N Neurological Problems N Diabetes Y Anticoagulation therapy N Rheumatic Fever N Bleeding Disorder N Seizures/Epilepsy N Tuberculosis N Genetic Disorder N AIDS/HIV N Hyperlipidemia N Asthma N Peripheral Vascular Disease N Epilepsy/Seizures N Sleep Apnea N Sleep Disorder N Hepatitis N Heart Disease Y Hypertension Y Osteoporosis N Gynecological HistoryNo gynecological history recorded. Obstetrics History GPAL:G 0 P 0 0 0 0 Past Encounters Encounter ID Performer Location Encounter Start Date Encounter Closed Date Diagnosis/Indication Diagnosis SNOMED-CT Code Diagnosis ICD10 Code Diagnosis Note [id number] MD [facility] [address] [place] [address] 06/20/2024 12:43:08 06/20/2024 13:52:51 Xerostomia 56143439 K11.7 -perceptio n of dry mouth-sali va excretes generously from palate and parotid/reid bmandibula r glands Supraventr icular tachycardia 7821902 I47.10 -hx of-no recurrence since cardiovers ion Flushing 458199105 R23.2 History of malignant neoplasm of stomach 944989378 Z85.028 Nausea and vomiting 1693 2000 R11.2 -with eating Slurred speech 761361506 R47.81 Enlargement of tongue 25 693113 Q38.2 Oropharyng eal dysphagia 07372846 R13.12 Dysarthria 9933721 R47.1 -to consider Health Concerns Section Related Observation LastModified by Organization Detai ls LastModified Time None Recorded Concern Status LastModified by Organization Details LastModified Time None Recorded Payers Encounter Date Sequence Insurance Name Policy Number Policy Rivas Covered Member ID Rivas Member ID Guarantor Name 06/20/2024 1 [employer]ICARE-[employer] (MEDICARE) Leslie Greer Midden [id number] 1 Leslie Greer Midden 06/20/2024 2 [employer] (MEDICARE SUPPLEMENT) Leslie Greer Midden [id number] Leslie Greer Midden Notes Date Note Type Note Provider Name and Address Organization Details Recorded Time 06/20/2024 text/html Trayc (69 F) co mes in today for consultation at the request of Dr.Stephen Percy Snyder for an evaluation of xerostomia. She did have stomach cancer and was treated at . She has had many other procedures as well detailed in her chart. She does see Endocrinology for hot flashes. She also follows Cardio. One night she coughed and went into SVT. She had a cardioversion and takes Carvedilol,Valsarta n, and Xarelto now. She could not tolerate HCTZ due to xerostomia. Her mouth is becoming more dry and dry. She wakes up at night with dry mouth. Meat is very difficult to eat. She will vomit due to not being able to swallow. She had a negative EGD and colonoscopy for workup of N&V. She did have gastroparesis secondary to Ozempic use. There was concern for Sjogren's which labs showed negative results. She drinks 72 oz of water with lemon. She also sucks on cough drops. She feels her mouth will swell and her speech will become slurred. Medication changes have not improved symptoms. She has chronic hives which she treats with Shalonda. 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 DAHIANA CANSECO MD [address], [place], [address], [facility] 06/21/2024 08:27:59 OBGyn Episode No OBEpisode recorded.
--- OUTSIDE RECORDS SUMMARY | 2024-07-16 10:39 | XMS_ITS | Data Portability ---
Author Organization [facility] Address [address] [place] [address] Care Team Providers Care Field Recruiter Name Role Phone KISHA AREVALO Medical Oncologist RAYMUNDO SNYDER Primary Care Provider [phone] Assessment Encounter Date Assessment Date Assessment LastModified by Organization Details LastModified Time 04/27/2022 04/27/2022 1 and 2-year status post staged bilateral knee replacement doing well. Patient's only issue is poor endurance. She is working on that we discussed how endurance activities are the best way to improve endurance. Follow-up in 2 to 3 years time for repeat radiograph [email or web address] Not available 04/27/2022 13:48:51 Plan of Treatment Reminders Order Date Submit Date Provider Last Modified By Organization Details Last Modified Time Details Appointments None recorded. Lab None recorded. Referral None recorded. Procedures None recorded. Surgeries None recorded. Imaging None recorded. Medication Orders pilocarpi ne 5 mg tablet 2024 025 [email or web address] victoria [id number], [address] [place], [address], 17:59:27 Medrol (Diogo) 4 mg tablets in a dose pack 2022 023 [email or web address] [id number], [address] [place], [address], 13:00:04 Voltaren Arthritis Pain 1 % topical gel 2022 023 [email or web address] [facility], [address] [place], [address], 12:59:35 Patient TargetsNo targets recorded. Patient Instructions Encounter Date Encounter Id Patient Instructions Last Modified By Organization Details Last Modified Time 06/20/2024 [id number] 1. Discussed Shalonda and cardiac medications which [...] through the parotid glands and from the Suwannee's ducts from the submandibular glands. This may [...] 06/21/2024 08:27:40 Reason for Referral None Reported. Results Created Date Observation Date Name Description Value Unit Range Abnormal Flag Note LastModifiedBy Organization Detail LastModifiedTime 04/28/1904/27/2022 XR, knee, 3 view [place] [facility] [address] [place] [address] Patijill t Name: GYPSY MCCULLOUGHDEN Salvatore ybarra : 954 Patijill t Orderi ng Provid er: Florencia PURNIMA BRUNNER SON EXAM DATE: 2022 EXAM: XR MARISABEL KNEES 3 VIEWS HISTOR Y: Follow up of prior surger y. COMPAR EDVIN: 05/21/19 22 FINDIN GS: Again visual ized are bilate ral total knee arthro plasti es. There is no eviden ce of loosen ing or compli cation . No fractu re is identi fied. IMPRES NIRAV: 1. There are bilate ral total knee arthro plasti es in place withou t eviden ce of loosen ing or compli cation . Interp reted By: Morgan miranda MD Electr onical ly Signed By: Morgan miranda MD on 023 1:09 PM [email or web address] [facility] [place] [address] , [place], [address], 04/28/2022 09:14:07 10/28/19 23 10/27/2022 XR, knee, 3 view [facility] [address] [place] [address] Patien t Name: GYPSY Greer MIDDEN Patien t : 89 Patien t Orderi ng Provid er: AZALIA MATTA EXAM DATE: 2022 EXAM: XR RT KNEE 3 VIEWS COMPAR EDVIN: 023 HISTOR Y: Pain. Surger y follow -up FINDIN GS: There is a right total knee replac ement. The patell a aligns normal ly. No compli cation . No loosen ing or fractu re. Contra latera l knee: Grossl y uncomp licate d appear ing total knee replac ement IMPRES NIRAV: 1. Uncomp licate d appear ing right total knee replac ement Interp reted By: Azalia Loaiza MD Electr onical ly Signed By: Azalia Loaiza MD on 023 9:58 AM [facility] [place] [address], [place], [address], 11/22/2022 09:40:51 04/28/19 24 04/28/2023 XR, knee, 3 view [facility] [address] [place] [address] Patien t Name: GYPSY Greer MIDDEN Patien t : 954 Patien t Orderi ng Provid er: Angeles BRUNNER SON EXAM DATE: 2023 EXAM: XR MARISABEL KNEES 3 VIEWS HISTOR Y: Follow up of prior surger yClemente MARIA EDVIN: 023 FINDIN GS: Again visual ized are bilate ral total knee arthro plasti es. There is no eviden ce of loosen ing or compli cation . No fractu re is identi fied. There is enthes opathi c spurri ng along the extens or mechan ism in both knees. IMPRES NIRAV: 1. There are bilate ral total knee arthro plasti es in place withou t eviden ce of loosen ing or compli cation . Interp reted By: Morgan miranda MD Electr onical ly Signed By: Morgan miranda MD on 024 12:[address] [facility] [place] [address] , [place], [address], 05/11/2023 10:11:11 Result Notes None recorded. Problems No Known Problems Procedures Surgical History Date Name Laterality Status Provider Name and Address Organization Details Recorded Time 04/12/19 22 Total knee arthroplasty completed Fco Cristina [facility] 04/29/2021 10:43:48 01/19/20 21 Synvisc One Injection completed AZALIA FARRIS PA-C [address] [place], [address], [facility] 01/18/2021 14:56:33 12/08/19 21 Total knee arthroplasty completed Fco Cristina [facility] 12/30/2020 10:09:09 09/24/19 20 Synvisc One Injection completed Jaclyn Boucher [facility] 09/24/2019 10:59:59 11/20/19 19 Synvisc One Injection completed THOM HILL MD [facility] [place], [address], [facility] 11/19/2018 13:40:58 03/08/19 19 Injection Joint/Bursa, Major completed Kisha Max [facility] 03/08/2018 12:16:04 05/03/20 18 Suture/Staple removal completed Ar DAVISON PA-C [facility] [place], [address], [facility] 06/15/2017 14:26:48 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 Procedure Notes None recorded. Medical Equipment None Reported. Allergies Allergen ID Allergen Name Allergen Category Reaction Reaction Severity Criticality Documentation Date Start Date Code Code System Note Provider Name and Address Organization Details Recorded Time 674254 tetracycl ine medicatio n rash Not available Not available 05/23/2017 92291 RxNorm Olivia Rothman [facility] 8 14:39:03 Medications Name Sig Start Date [...] completed Not Available Not Available Not Available Tenino 10 mg-325 mg tablet Take 1 tablet [...] No t Available Vitals Date Recorded Body height Body mass index (BMI) Body weight Provider Name and Address Organization Details Last Updated DateTime 04/27/2022 160.02 cm 41.6 kg/m2 771827.21 g [facility] 04/27/2022 12:51:22 Date Recorded Body height Body mass index (BMI) Body weight Provider Name and Address Organization Details Last Updated DateTime 04/28/2023 160.02 cm 41.6 kg/m2 742845.21 g [facility] 04/28/2023 12:30:13 Date Recorded Body weight Body mass index (BMI) Body height Body temperature Heart rate Systolic blood pressure Diastolic blood pressure Provider Name and Address Organization Details Last Updated DateTime 5 29061.5 4 g 38.7 kg/m2 160.02 cm 97.5 [degF] 75 /min 128 mm[Hg] 75 mm[Hg] Carmenza Lira [facility] 5 13:03:24 Date Recorded Body height Body mass index (BMI) Body weight Systolic blood pressure Diastolic blood pressure Provider Name and Address Organization Details Last Updated DateTime 09/09/2021 160.02 cm 41.6 kg/m2 510393.2 1 g 124 mm[Hg] 80 mm[Hg] [facility] 10:32:55 Date Recorded Body height Body mass index (BMI) Body weight Provider Name and Address Organization Details Last Updated DateTime 10/27/2022 160.02 cm 41.6 kg/m2 777053.21 g Karrie Garnett [facility] 10/27/2022 09:31:54 Social History Question Answer Notes LastModified by Organizat [employer] Details LastModified Time Tobacco Smoking Status [facility]/23[facility]2017 14:42:19 What Was The Date Of Your Most Recent Tobacco Screening? 03/08/2018 Information n ot available 04/02/2019 Sex: Female Functional Status Question Answer Note LastModified by Organizat [employer] Details LastModified Time What is your level of alcohol consumption? Occasional [email or web address] Information not available 06/20/2024 Mental Status None recorded. Family History Relationship Description Onset Age of this Age Resolved Age Notes LastModified by Organization Details LastModified Time Father Family history of Angina [email or web address] Not available 2024 12:46:22 Father Malignant neoplastic disease Colon [email or web address] Not available 06/20 12:55:37 Father Hearing loss [email or web address] Not purvi ilable 06/20/2024 12:55:48 Father Heart disease Not available 06/20 12:56:09 Father Essential hypertension [email or web address] Not available 12:56:28 Mother Heart disease [email or web address] Not available 06/20 12:56:09 Mother Essential hypertension [email or web address] Not available 12:56:28 Mother Cerebrovascu lar accident [email or web address] Not available 12:56:36 Mother Diabetes mellitus [email or web address] Not available 06/20 12:56:44 Medical History Condition [...] Pain N Stomach trouble Y Heart Attack (CT) N Ulcers N Neurological Problems N Diabetes [...] SNOMED-CT Code Diagnosis ICD10 Code Diagnosis Note [id number] THOM HILL MD [facility] [address] [place] [address] 05/23/2017 13:54:39 06/07/2017 14:45:03 Tear of medial meniscus of knee 464659969 S83.221A [id number] THOM HILL MD SURGERY SCHEDULE [address] [place] [address] 06/07/2017 07:07:07 06/07/2017 07:07:42 [id number] R FREDDIE DAVISON PA-C [facility] [address] [place] [address] 06/15/2017 13:57:37 06/15/2017 16:57:48 Postoperative care 135608047 Z48.89 [id number] THOM HILL MD [facility] [address] [place] [address] 07/04/2017 11:46:09 07/04/2017 14:40:06 Tear of medial meniscus of knee 264975292 S83.231A [id number] THOM HILL MD [facility] [address] [place] [address] 02/08/2018 14:30:31 02/08/2018 16:47:56 Pain in left knee 5097234076 34010 M25.153 [id number] THOM HILL MD [facility] [address] [place] [address] 03/08/2018 11:32:25 03/08/2018 12:36:29 Osteoarthritis of left knee joint 4785105704 17234 M17.12 [id number] THOM HILL MD [facility] [address] [place] [address] 11/19/2018 09:30:57 11/19/2018 12:50:15 Osteoarthritis of knee 656164038 M17.9 [id number] THOM HILL MD [facility] [address] [place] [address] 09/24/2019 10:48:35 09/24/2019 12:03:58 Osteoarthritis of knee 518716961 M17.9 [id number] THOM HILL MD [facility] [address] [place] [address] 09/22/2020 13:14:31 09/22/2020 15:07:38 Pain in right knee 7492347621 04824 M25.561 fat pad impingemen t [id number] KARRIE GRANGER APRN ENDOCRINO LOGY [address] [place] [address] 10/13/2020 13:52:54 10/14/2020 06:55:14 Hypothyroidism 61306352 E03.9 -Reviewed and discussed last labs from 07/17/20 TSH 0.71 -Currently taking levothyrox ine 150mcg every AM. Patient was instructed on the appropriat e method of levothyrox ine administra tion. Take this medication every morning on an empty stomach 30-60 minutes prior to other food, drinks or medication s. PPI and calcium-co ntaining preparatio ns are preferred to be given at least four hours before or after levothyrox ine therapy. -Repeat labs today. Further recommenda tions once results received. -Follow up in 3 months or sooner if needed. -Patient verbalized understand ing and agreed with plan. All questions answered. [place] 926341160 R23.2 -Rule out endocrine related causes as below.-Dis cussed potential side effects of medication s.-Pt would like testostero ne checked. Advised that we do not treat low testostero ne in women.-Fur ther recommenda tions once results received. [id number] THOM HLIL MD [facility] [address] [place] [address] 10/12/2020 13:23:04 10/12/2020 14:10:32 Osteoarthritis of right knee joint 0096838756 94586 M17.11 [id number] MARLEY Hart MD [facility]TH[facility] [address] [place] [address] 10/22/2020 14:37:30 10/22/2020 16:56:29 Pain in right knee 8571922736 39004 M25.561 Osteoarthr itis of knee 053386135 M17.11 [id number] MARLEY Hart MD SURGERY SCHEDULE [address] [place] [address] 12/07/2020 15:12:32 12/09/2020 15:21:44 History of total knee arthroplasty 4344039931 105 Z96.008 [id number] C PURNIMA WHITTAKER PA-C [facility] [address] [place] [address] 12/30/2020 09:54:59 12/30/2020 11:09:49 Postoperative care 525968125 Z48.89 3-week status post right total knee arthroplas ty doing well. Continue with outpatient PT. Okay to leave incision open to air. Continue to focus on range of motion. Patient requested follow-up in 5 weeks due to [place] trip. Cautioned about avoiding therapy on vacation. Follow-up in 5 weeks the Marley hart M.D. [id number] AZALIA FARRIS PA-C [facility] [address] [place] [address] 01/18/2021 13:53:31 01/18/2021 15:03:19 Osteoarthritis of left knee joint 2927666001 93106 M17.12 We discussed conservati ve and surgical treatment options for knee arthritis. We discussed the importance of weight loss, and low-impact aerobic activity. We discussed judicious use of NSAIDs, if possible, or Tylenol. We discussed corticoste roid injections and viscosuppl ementation . We discussed bracing, physical therapy, activity modificati on, and use of assistive ambulatory devices. Plan today is for steroid injection PT viscosu pplementat ion viscos upplementa tion left knee Follow up prn [id number] MARLEY Hart MD [facility] [address] [place] [address] 02/02/2021 13:53:31 02/02/2021 15:00:11 History of total knee arthroplasty 6516400603 105 Z96.677 [id number] Florencia WHITTAKER PA-C [facility] [address] [place] [address] 02/24/2021 09:24:04 02/24/2021 09:59:49 History of total knee arthroplasty 5025321097 105 Z96.651 3-month status post right total knee arthroplas ty. Patient is doing well. However the left knee is now much more symptomati c and by far more inhibitory for her ADLs. We have given her a tentative date for left total knee arthroplas ty with long-leg x-ray today. We have continued her seated work duty until further notice. We will have 1 more follow-up prior to her surgery to check both right knee and formalize left knee surgery [id number] Florencia WHITTAKER PA-C [facility] [address] [place] [address] 03/24/2021 10:15:39 03/24/2021 11:28:15 Osteoarthritis of knee 691974024 M17.9 Left knee replacemen t in 3 weeks. Patient understand s all risks and benefits having recently undergone the contralate ral side. All questions answered to her satisfacti on. 4-month status post right total knee arthroplas ty doing well. Patient scheduled follow-up 3 weeks after the aforementi oned procedure [id number] MARLEY Hart MD SURGERY SCHEDULE [address] [place] [address] 04/14/2021 09:02:38 04/14/2021 13:24:51 [id number] Florencia WHITTAKER PA-C [facility] [address] [address] 04/30/2021 12:00:08 04/30/2021 12:41:22 Postoperative care 760170131 Z48.89 3 status post left total knee arthroplas ty. Wound drainage has resolved. Motion is excellent. Patient requested refill of Lyrica today which is appropriat e. Follow-up in 3 weeks with Marley hart M.D. and repeat three-view x-ray [id number] MARLEY Hart MD [facility]TH[facility] [address] [place] [address] 05/20/2021 10:44:06 05/20/2021 11:34:27 History of total knee arthroplasty 0107483129 105 Z96.652 ASSESSMENT : 6 weeks left TKA PLAN: Overall, Leslie's wound is healed, and her motion is excellent. Continue outpatient PT, wean from walker to cane. Okay to submerge incision, okay to drive. We will have her hold off on work for the time being, she will call us for a full release when she feels ready to return. 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 We will refill her Lyrica, at a higher dose to manage her residual neuropathi c pain. Would expect this to improve with time. Follow-up in 8 weeks, with bilateral long-leg x-rays. We will synchroniz e follow-up on both TKAs going forward. [id number] Florencia WHITTAKER PA-C [facility] [address] [place] [address] 07/15/2021 10:45:15 07/15/2021 11:44:27 History of total knee arthroplasty 6315288693 105 Z96.652 Z96.651 3-month status post left total knee arthroplas ty and 7-month status post left total knee arthroplas ty. Both have excellent range of motion and she can slack off on stretching . However she is to continue home exercise program for strengthen ing. Due to continued levels of discomfort we do have her following up in 8 weeks just to see if that is resolved. She is happy to report that the RSD pain has resolved on her left knee. [id number] Florencia WHITTAKER PA-C [facility] [address] [place] [address] 09/09/2021 10:29:38 09/09/2021 12:38:15 History of total knee arthroplasty 0234245009 105 Z96.652 Z96.651 Bilateral knee replacemen t still somewhat limited by her left knee. We discussed the variances and I respect her inability to not compare them. I reassured her that in isolation both knees had what I would consider a good outcome. She admits that she is better than before surgery and even if she did not improve she would still have both knees done. I encouraged her to give it more time. Focus on home exercise program for strengthen ing. At the end of visit she did request a work note limiting her driving to less than 4 hours roundtrip with work. Follow-up in March 2022 sooner if she feels necessary [id number] Florencia WHITTAKER PA-C [facility] [address] [place] [address] 04/27/2022 12:43:22 04/27/2022 13:47:08 [id number] AZALIA FARRIS PA-C [facility] [address] [place] [address] 10/27/2022 09:21:23 10/27/2022 10:25:22 History of arthroplasty of right knee 2841809070 911884 Z96.651 Assessment : Right knee arthroplas ty with presence of pes anserine strain/ten dinitis Plan: Long discussion today with patient regards to her right knee. Prosthesis appears to be in good position with no evidence of complicati on. Pain directly over the pes anserine insertion site. We will start Medrol Dosepak and topical Voltaren gel directly onto the area. She will call if this is not improved. Tendinitis of right pes anserinus tendon 730993658 M76.891 [id number] Florencia WHITTAKER PA-C [facility] [address] [place] [address] 04/28/2023 12:19:28 04/28/2023 15:26:29 History of total knee arthroplasty 6213302497 105 Z96.652 Z96.651 Bilateral total knee arthroplas ty doing excellent at annual surveillan ce visit. A better gait could not be hoped for. Patient was told okay to kneel for Religious mass if she wanted to. Patient understand s it may not be comfortabl e. Patient should follow-up in 2 to 3 years for repeat surveillan ce films [id number] MD LONNIE STAPLES E[facility] [address] [place] [address] 06/20/2024 12:43:08 06/20/2024 13:52:51 Xerostomia 66645188 K11.7 -perceptio n of dry mouth-sali va excretes generously from palate and parotid/reid bmandibula r glands Supraventr icular tachycardia 9816809 I47.10 -hx of-no recurrence since cardiovers ion Flushing 121478620 R23.2 History of malignant neoplasm of stomach 681050112 Z85.028 Nausea and vomiting 1693 2000 R11.2 -with eating Slurred speech 674426838 R47.81 Enlargement of tongue 25 362572 Q38.2 Oropharyng eal dysphagia 32296752 R13.12 Dysarthria 2601779 R47.1 -to consider Health Concerns Section Related Observation LastModified by Organization Detai ls LastModified Time None Recorded Concern Status LastModified by Organization Details LastModified Time None Recorded Advance Directives Directive None Recorded Payers Insurance Date Sequence Insurance Name Policy Number Policy Rivas Covered Member ID Rivas Member ID Guarantor Name 06/26/2024 2 [employer] (MEDICARE SUPPLEMENT) Leslie A [facility] [id number] Leslie A [facility] 01/08/2020 1 [place] [id number] [facility] [id number] Leslie A [facility] 07/01/2018 PAYMENT PLAN Leslie A [facility] 10/27/2022 2 [place] [id number] Leslie A [place]idden [id number] Leslie A [facility] 06/17/2024 1 [place] Lesliefahad Martínez [id number] Leslie Martínez 09/24/2019 1 [place] [id number] Azalia Martínez [id number] Leslie Martínez 04/27/2022 2 [place] [id number] Azalia Martínez [id number] Leslie Martínez Notes Date Note Type Note Provider Name and Address Organization Details Recorded Time 09/09/2021 text/html 09/09/2021ebsammy is 9 months S/P right TKA preformed on (12/07/20) and 5 months S/P (04/12/21) left TKA. She voices right knee pain and swelling have improved, left knee does have slight swelling in the morning with stiffness with soreness, she denies pain. She is still following HEP. 07-15-21: Ms. Martínez returns for recheck of bilateral TKA. She is 7 months (12/07/20) post right TKA and 3 months (04/12/21) left TKA. 05-20-2021:Patient is 6 weeks s/p L TKA.Pain is improvingCurrently taking <3 doses per day of narcotic.Ambulating with walkerPT: [facility] utpatient- [facility] Denies fevers, chills, or wound drainage.They do not request a refill of pain medicine.Leslie did have some bleeding from the distal extent of her incision in the first couple of days after her left TKA. This resolved with compressive dressings and cessation of motion for a couple of days. At her last visit with Purnima, the incision had completely healed, and we resume PT without restriction. Her primary she has been some neuropathic type pain, worse at night. It is more severe on the left side, than it was with her contralateral right TKA. 04-30-2021:Patient is 3 weeks s/p L TKA.Pain is completely better improving worse 3/10 burning painCurrently taking 3-4 doses per day of narcotic.Ambulating with walkerPT: [facility] home health outpatient HEP o utpatient- [facility] Denies fevers, chills, or wound drainage.They do not request a refill of pain medicine.Patient did have excessive bleeding the has now improved. C PURNIMA WHITTAKER PA-C [address] [place], [address], [facility] 09/09/2021 12:07:34 04/27/2022 text/html 04-27-22: Tracy returns to clinic for routine evaluation of R TKA preformed December 07, 2020 and L TKA preformed on April 12, 2021. She is over all doing well she denies pain unless rotating leg internally averaging 3/10. She continues to follow physical therapy exercises she was given after surgery. 2Deborah is 9 months S/P right TKA preformed on (12/07/20) and 5 months S/P (04/12/21) left TKA. She voices right knee pain and swelling have improved, left knee does have slight swelling in the morning with stiffness with soreness, she denies pain. She is still following HEP. 07-15-21: Ms. Martínez returns for recheck of bilateral TKA. She is 7 months (12/07/20) post right TKA and 3 months (04/12/21) left TKA. 05-20-2021:Patient is 6 weeks s/p L TKA.Pain is improvingCurrently taking <3 doses per day of narcotic.Ambulating with walkerPT: [facility] Denies fevers, chills, or wound drainage.They do not request a refill of pain medicine.Leslie did have some bleeding from the distal extent of her incision in the first couple of days after her left TKA. This resolved with compressive dressings and cessation of motion for a couple of days. At her last visit with Purnima, the incision had completely healed, and we resume PT without restriction. Her primary she has been some neuropathic type pain, worse at night. It is more severe on the left side, than it was with her contralateral right TKA. 04-30-2021:Patient is 3 weeks s/p L TKA.Pain is completely better improving worse 3/10 burning painCurrently taking 3-4 doses per day of narcotic.Ambulating with walkerPT: [facility] o utpatient- [facility] Denies fevers, chills, or wound drainage.They do not request a refill of pain medicine.Patient did have excessive bleeding the has now improved. Florencia WHITTAKER PA-C [address] [place], [address], [facility] 04/27/2022 13:49:07 10/27/2022 text/html 10-27-22Mrmisty melchor returns for evaluation of R TKA preformed in 2020. Yesterday she jumped out of bed due to trying to answer the phone, she twisted her leg and since caused increasing pain 10/10. She has difficulty getting in/out of vehicle. She has tried tylenol extra strength, icy hot topical gel with no benefit. 04-27-22: Tracy returns to clinic for routine evaluation of R TKA preformed December 07, 2020 and L TKA preformed on April 12, 2021. She is over all doing well she denies pain unless rotating leg internally averaging 3/10. She continues to follow physical therapy exercises she was given after surgery. 2Deborah is 9 months S/P right TKA preformed on (12/07/20) and 5 months S/P (04/12/21) left TKA. She voices right knee pain and swelling have improved, left knee does have slight swelling in the morning with stiffness with soreness, she denies pain. She is still following HEP. 07-15-21: Ms. Martínez returns for recheck of bilateral TKA. She is 7 months (12/07/20) post right TKA and 3 months (04/12/21) left TKA. 05-20-2021:Patient is 6 weeks s/p L TKA.Pain is improvingCurrently taking <3 doses per day of narcotic.Ambulating with walkerPT: [facility]patient- [facility] Denies fevers, chills, or wound drainage.They do not request a refill of pain medicine.Leslie did have some bleeding from the distal extent of her incision in the first couple of days after her left TKA. This resolved with compressive dressings and cessation of motion for a couple of days. At her last visit with Purnima, the incision had completely healed, and we resume PT without restriction. Her primary she has been some neuropathic type pain, worse at night. It is more severe on the left side, than it was with her contralateral right TKA. 04-30-2021:Patient is 3 weeks s/p L TKA.Pain is completely better improving worse 3/10 burning painCurrently taking 3-4 doses per day of narcotic.Ambulating with walkerPT: [facility] home health outpatient HEP o utpatient- [facility] Denies fevers, chills, or wound drainage.They do not request a refill of pain medicine.Patient did have excessive bleeding the has now improved. AZALIA FARRIS PA-C [address] [place], [address], [facility] 10/31/2022 12:39:11 04/28/2023 text/html 04-28-23Mrmisty melchor returns to clinic for routine evaluation of R TKA preformed in 2020 and L TKA preformed in 2021. At her last visit in October she had twisted her leg causing increasing discomfort. She was given diclofenac topical gel that improved symptoms. She denies any concerns today.Patient does relate that she had a recent episode of A-fib with RVR resulting in a cardioversion. She is still in the evaluation phase as to whether she will need any further medication/intervention . 04-27-22: Tracy returns to clinic for routine evaluation of R TKA preformed December 07, 2020 and L TKA preformed on April 12, 2021. She is over all doing well she denies pain unless rotating leg internally averaging 3/10. She continues to follow physical therapy exercises she was given after surgery. 2Deborah is 9 months S/P right TKA preformed on (12/07/20) and 5 months S/P (04/12/21) left TKA. She voices right knee pain and swelling have improved, left knee does have slight swelling in the morning with stiffness with soreness, she denies pain. She is still following HEP. 07-15-21: Ms. Martínez returns for recheck of bilateral TKA. She is 7 months (12/07/20) post right TKA and 3 months (04/12/21) left TKA. 05-20-2021:Patient is 6 weeks s/p L TKA.Pain is improvingCurrently taking <3 doses per day of narcotic.Ambulating with walkerPT: [facility] o utpatient- [facility] Denies fevers, chills, or wound drainage.They do not request a refill of pain medicine.Leslie did have some bleeding from the distal extent of her incision in the first couple of days after her left TKA. This resolved with compressive dressings and cessation of motion for a couple of days. At her last visit with Purnima, the incision had completely healed, and we resume PT without restriction. Her primary she has been some neuropathic type pain, worse at night. It is more severe on the left side, than it was with her contralateral right TKA. 04-30-2021:Patient is 3 weeks s/p L TKA.Pain is completely better improving worse 3/10 burning painCurrently taking 3-4 doses per day of narcotic.Ambulating with walkerPT: [facility] o utpatient- [facility] Denies fevers, chills, or wound drainage.They do not request a refill of pain medicine.Patient did have excessive bleeding the has now improved. Florencia WHITTAKER PA-C [address] [place], [address], [facility] 04/28/2023 12:48:21 06/20/2024 text/html Tracy (69 F) co mes in today for [...] SVT. She had a cardioversion and takes Carvedilol,Valsartan, and Xarelto now. She could not tolerate [...] and still works. DAHIANA CANSECO MD [address] [place], [address], [facility] 06/21/2024 08:27:59 OBGyn Episode No OBEpisode recorded.
[2024-07-16] MEDS: BARIUM SULFATE(E-Z-AC);750ML BOTTLE 750 ML PO (11:14)
== END 2024-07-16 23:59 | disposition home or self-care (01) ==
LOC: RAD 10:37
PROVIDERS: PCP Internal Medicine Adolescent Medicine; Visit Provider Internal Medicine Adolescent Medicine
DX: R13.10 Dysphagia, unspecified (principal)
CPT/HCPCS: 74230; 92611

== ENCOUNTER 2024-07-17 19:20 | Emergency (ER) | payer MEDICARE, SELFPAY ==
[2024-07-17 19:24] VITALS: BP 103/62; PULSE 86; RESP 18; TEMP 36.2; O2SAT 99; BMI 37.0
[2024-07-17 19:31] LABS: POC Glucose,Bedside 124 (70-110)
--- OUTSIDE RECORDS SUMMARY | 2024-07-17 19:34 | XMS_ITS | Continuity of Care Document ---
Author Organization [facility] [place] [address] Address [address] [place] [address] Care Team Providers Care Sinker Puller Name Role Phone KISHA AREVALO Medical Oncologist RAYMUNDO SNYDER Primary Care Provider Assessment No assessment recorded. Plan of Treatment Reminders Order Date Submit Date Provider Last Modified By Organization Details Last Modified Time Details Appointments None recorded. Lab None recorded. Referral None recorded. Procedures None recorded. Surgeries None recorded. Imaging None recorded. Medication Orders pilocarpi ne 5 mg tablet 2024 025 petra [id number], [address] [place], [address], 17:59:27 Patient TargetsNo targets recorded. Patient Instructions Encounter Date Encounter Id Patient Instructions Last Modified By Organization Details Last Modified Time 06/20/2024 [id number] 1. Discussed Shalonda and cardiac medications which [...] 22 Total knee arthroplasty completed Fco Cristina [facility] 04/29/2021 10:43:48 01/19/20 21 Synvisc One Injection completed AZALIA FARRIS PA-C [address] [place], [address], [facility] 01/18/2021 14:56:33 12/08/19 21 Total knee arthroplasty completed Fco Cristina [facility] 12/30/2020 10:09:09 09/24/19 20 Synvisc One Injection completed Jaclyn Boucher [facility] 09/24/2019 10:59:59 11/20/19 19 Synvisc One Injection completed THOM HILL MD [address] [place], [address], [facility] 11/19/2018 13:40:58 03/08/19 19 Injection Joint/Bursa, Major completed Kisha Max [facility] 03/08/2018 12:16:04 06/16/19 18 Suture/Staple removal completed Ar DAVISON PA-C [address] [place], [address], [facility] 06/15/2017 14:26:48 Water Quality Specialist Surgery completed Olivia Rothman [facility] 05/23/2017 14:42:12 Imaging Results None recorded. Procedure Notes None recorded. Medical Equipment None Reported. Allergies Allergen ID Allergen Name Allergen Category Reaction Reaction Severity Criticality Documentation Date Start Date Code Code System Note Provider Name and Address Organization Details Recorded Time 019724 tetracycl ine medicatio n rash Not available Not available 05/23/2017 79302 RxNorm Oliviaruthy Rothman [facility] 8 14:39:03 Medications Name Sig Start Date [...] completed Not Available Not Available Not Available [place] 10 mg-325 mg tablet Take 1 tablet [...] Address Organization Details Last Updated DateTime 5 72286.5 4 g 38.7 kg/m2 160.02 cm 97.5 [degF] 75 /min 128 mm[Hg] 75 mm[Hg] Carmenza Pankaj [facility] 13:03:24 Social History Question Answer Notes LastModified by Organizat [facility] Details LastModified Time Tobacco Smoking Status [facility] 05/23/2017 14:42:19 What Was The Date Of Your Most Recent Tobacco Screening? 03/08/2018 Information n ot available 04/02/2019 Sex: Female Functional Status Question Answer Note LastModified by Organizat [facility] [address] [facility] Details LastModified Time What is your level of alcohol consumption? Occasional [email or web address] Information not available 06/20/2024 Mental Status None recorded. Family History Relationship Description Onset Age of this Age Resolved Age Notes LastModified by Organization Details LastModified Time Father Family history of Angina [email or web address] Not available 2024 12:46:22 Father Malignant neoplastic disease Colon [email or web address] Not available 06/20 12:55:37 Father Hearing loss [email or web address] Not purvi ilable 06/20/2024 12:55:48 Father Heart disease [email or web address] Not available 06/20 12:56:09 Father Essential hypertension [email or web address] Not available 12:56:28 Mother Heart disease [email or web address] Not available 06/20 12:56:09 Mother Essential hypertension Not available 12:56:28 Mother Cerebrovascu lar accident [email or web address] Not available 12:56:36 Mother Diabetes mellitus [email or web address] Not available 06/20 12:56:44 Medical History Condition Response Coronary Artery Disease N Other N Gout N Kidney Stones N Hyperthyroidism N Heart Arrhythmia Y Emphysema N Esophagus/swallowing troubles Y COPD N Depression N Pneumonia N Gastrointestinal Disease N Anxiety Disorder N Arthritis Y Blood Clot N Acid Reflux (GERD) Y Cancer N Stroke N Hoarseness N Snoring problems Y Headaches N Kidney Disease N Heart Problems Y Mental handicap N Heart Conditions N Ear or Hearing Problems Y Gallbladder Disease N Migraines N Goiter N Skin Problems N Ulcers N Rheumatic Fever N Bleeding Disorder N Tuberculosis N Genetic Disorder N AIDS/HIV N Asthma N Peripheral Vascular Disease N Sleep Disorder N Hepatitis N Anxiety/Depression N Thyroid Disease Y Hernia N Lung Disease N Hypothyroidism Y Glaucoma N Anesthesia Complications N Hearing Loss N Serious Illness or Injuries N Blood Thinners Y Alcohol Overuse/Alcohol Abuse N High Cholesterol N Liver Disease N Allergies/Hayfever N Chronic Obstructive Pulmonary Disease N Thyroid Problems Y Anemia N Immune System Disorder N Chest Pain N Stomach trouble Y Heart Attack ([place]) N Neurological Problems N Diabetes Y Anticoagulation therapy N Seizures/Epilepsy N Hyperlipidemia N Epilepsy/Seizures N Sleep Apnea N Heart Disease Y Hypertension Y Osteoporosis N Gynecological HistoryNo gynecological history recorded. Obstetrics History GPAL:G 0 P 0 0 0 0 Past Encounters Encounter ID Performer Location Encounter Start Date Encounter Closed Date Diagnosis/Indication Diagnosis SNOMED-CT Code Diagnosis ICD10 Code Diagnosis Note [id number] MD LONNIE STAPLES [facility] [address] [place] [address] 06/20/2024 12:43:08 06/20/2024 13:52:51 Xerostomia 13861248 K11.7 -perceptio n of dry mouth-sali va excretes generously from palate and parotid/reid bmandibula r glands Supraventr icular tachycardia 8330755 I47.10 -hx of-no recurrence since cardiovers ion Flushing 754267330 R23.2 History of malignant neoplasm of stomach 882945382 Z85.028 Nausea and vomiting 1693 2000 R11.2 -with eating Slurred speech 164661107 R47.81 Enlargement of tongue 25 673182 Q38.2 Oropharyng eal dysphagia 63365321 R13.12 Dysarthria 3015665 R47.1 -to consider Health Concerns Section Related Observation LastModified by Organization Detai ls LastModified Time None Recorded Concern Status LastModified by Organization Details LastModified Time None Recorded Payers Encounter Date Sequence Insurance Name Policy Number Policy Rivas Covered Member ID Rivas Member ID Guarantor Name 06/20/2024 1 [employer]ICARE-[employer] (MEDICARE) Leslie Greer Midden [id number] 1 Leslie Greer Midden 06/20/2024 2 [employer] (MEDICARE SUPPLEMENT) Leslie Greer Midden [id number] Leslie Greer Midden Notes Date Note Type Note Provider Name and Address Organization Details Recorded Time 06/20/2024 text/html Tracy (69 F) co mes [...] still works. DAHIANA CANSECO MD [address], [place], [address], [facility] 06/21/2024 08:27:59 OBGyn Episode No OBEpisode recorded.
--- NOTE | 2024-07-17 19:35 | ECG_ITS ---
APPROVED REPORT Exam: Resting ECG HR:84 bpm ECG Measurements Heart Rate 84 AXES HI 200 P 22 QRSd 111 QRS -24 QT 390 T 43 QTc 431 Conclusion SINUS RHYTHM LOW QRS VOLTAGE IN PRECORDIAL LEADS [QRS DEFLECTION < 1.0 mV IN CHEST LEADS] POSSIBLE ANTERIOR MYOCARDIAL INFARCTION , PROBABLY OLD [30 ms Q WAVE IN V3/V4, OR R < 0.2 mV IN V4] INFERIOR MYOCARDIAL INFARCTION , PROBABLY OLD [40+ ms Q WAVE AND/OR ST/T ABNORMALITY IN II/aVF] ABNORMAL ECG UNCONFIRMED REPORT Electronically signed by : Quincy Gillette, 07/19/2024 23:04:25
--- OUTSIDE RECORDS SUMMARY | 2024-07-17 19:35 | XMS_ITS | Data Portability ---
Author Organization [facility] Address [address] [place] [address] Care Team Providers Care Cashier Self Service Gasoline Name Role Phone KISHA AREVALO Medical Oncologist RAYMUNDO SNYDER Primary Care Provider Assessment Encounter Date Assessment Date Assessment LastModified by Organization Details LastModified Time 04/27/2022 04/27/2022 1 and 2-year status post staged bilateral knee replacement doing well. Patient's only issue is poor endurance. She is working on that we discussed how endurance activities are the best way to improve endurance. Follow-up in 2 to 3 years time for repeat radiograph [email or web address] Not available 04/27/2022 13:48:51 Plan of Treatment Reminders Order Date Submit Date Provider Last Modified By Organization Details Last Modified Time Details Appointments None recorded. Lab None recorded. Referral None recorded. Procedures None recorded. Surgeries None recorded. Imaging None recorded. Medication Orders pilocarpi ne 5 mg tablet 2024 025 [email or web address] victoria [id number], [address] [place], [address], 17:59:27 Medrol (Diogo) 4 mg tablets in a dose pack 2022 023 [email or web address] [id number], [address] [place], [address], 13:00:04 Voltaren Arthritis Pain 1 % topical gel 2022 0[email or web address] [id number], [address] [place], [address], 12:59:35 Patient TargetsNo targets recorded. Patient Instructions Encounter Date Encounter Id Patient Instructions Last Modified By Organization Details Last Modified Time 06/20/2024 [id number] 1. Discussed Shalonda and cardiac medications which [...] through the parotid glands and from the Gem's ducts from the submandibular glands. This may [...] 04/28/1904/27/2022 XR, knee, 3 view [place] [facility] [address] [place] [address] Patijill t Name: GYPSY MCCULLOUGHDEN Salvatore ybarra [...] Morgan miranda MD on 023 1:09 PM [email or web address] [facility] [place] [address] , [place], [address], 04/28/2022 09:14:07 10/28/19 23 10/27/2022 XR, knee, 3 view [facility] [address] [address] Patien t Name: GYPSY Greer MIDDEN Patien [...] Azalia Loaiza MD on 023 9:58 AM [email or web address] [facility] [place] [address], [place], [address], 11/22/2022 09:40:51 04/28/19 24 04/28/2023 XR, knee, 3 view [facility] [address] [place] [address] Patien t Name: GYPSY Greer MIDDEN Patien [...] Morgan miranda MD on 024 12:[address] [facility] [place] [address] , [place], [address], 05/11/2023 10:11:11 Result Notes None recorded. Problems No Known Problems Procedures Surgical History Date Name Laterality Status Provider Name and Address Organization Details Recorded Time 04/12/19 22 Total knee arthroplasty completed Fco Cristina [facility] 04/29/2021 10:43:48 01/19/20 21 Synvisc One Injection completed AZALIA FARRIS PA-C [address] [place], [address], [facility] 01/18/2021 14:56:33 12/08/19 21 Total knee arthroplasty completed Fco Cristina [facility] 12/30/2020 10:09:09 09/24/19 20 Synvisc One Injection completed Jaclyn Boucher [facility] 09/24/2019 10:59:59 11/20/19 19 Synvisc One Injection completed THOM HILL MD [facility] [place], [address], [facility] 11/19/2018 13:40:58 03/08/19 19 Injection Joint/Bursa, Major completed Kisha Max [facility] 03/08/2018 12:16:04 05/03/20 18 Suture/Staple removal completed Ar DAVISON PA-C [facility] [place], [address], [facility] 06/15/2017 14:26:48 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 Procedure Notes None recorded. Medical Equipment None Reported. Allergies Allergen ID Allergen Name Allergen Category Reaction Reaction Severity Criticality Documentation Date Start Date Code Code System Note Provider Name and Address Organization Details Recorded Time 535670 tetracycl ine medicatio n rash Not available Not available 05/23/2017 55894 RxNorm Olivia Rothman [facility] 8 14:39:03 Medications Name Sig Start [...] completed Not Available Not Available Not Available [facility] 10 mg-325 mg tablet Take 1 tablet [...] Updated DateTime 04/27/2022 160.02 cm 41.6 kg/m2 420638.21 g [facility] 04/27/2022 12:51:22 Date Recorded Body height Body mass index (BMI) Body weight Provider Name and Address Organization Details Last Updated DateTime 04/28/2023 160.02 cm 41.6 kg/m2 599533.21 g [facility] 04/28/2023 12:30:13 Date Recorded Body weight Body mass index (BMI) Body height Body temperature Heart rate Systolic blood pressure Diastolic blood pressure Provider Name and Address Organization Details Last Updated DateTime 5 59521.5 4 g 38.7 kg/m2 160.02 cm 97.5 [degF] 75 /min 128 mm[Hg] 75 mm[Hg] Carmenza Lira [facility] 5 13:03:24 Date Recorded Body height Body mass index (BMI) Body weight Systolic blood pressure Diastolic blood pressure Provider Name and Address Organization Details Last Updated DateTime 09/09/2021 160.02 cm 41.6 kg/m2 213053.2 1 g 124 mm[Hg] 80 mm[Hg] [facility] 10:32:55 Date Recorded Body height Body mass index (BMI) Body weight Provider Name and Address Organization Details Last Updated DateTime 10/27/2022 160.02 cm 41.6 kg/m2 433460.21 g Karrie Garnett [facility] 10/27/2022 09:31:54 Social History Question Answer Notes LastModified by Organizat [employer] Details LastModified Time Tobacco Smoking Status [facility]2017 14:42:19 What Was The Date Of Your Most Recent Tobacco Screening? 03/08/2018 Information n ot available 04/02/2019 Sex: Female Functional Status Question Answer Note LastModified by Organizat [employer] Details LastModified Time What is your level of alcohol consumption? Occasional [email or web address] Information not available 06/20/2024 Mental Status None recorded. Family History Relationship Description Onset Age of this Age Resolved Age Notes LastModified by Organization Details LastModified Time Father Family history of Angina [email or web address] Not available 2024 12:46:22 Father Malignant neoplastic disease Colon [email or web address] Not available 06/20 12:55:37 Father Hearing loss [email or web address] Not purvi ilable 06/20/2024 12:55:48 Father Heart disease [email or web address] Not available 06/20 12:56:09 Father Essential hypertension [email or web address] Not available 12:56:28 Mother Heart disease [email or web address] Not available 06/20 12:56:09 Mother Essential hypertension [email or web address] Not available 12:56:28 Mother Cerebrovascu lar accident [email or web address] Not available 12:56:36 Mother Diabetes mellitus [email or web address] Not available 06/20 12:56:44 Medical History Condition Response Coronary Artery Disease N Gout N Other N Anxiety/Depression N Thyroid Disease Y Kidney Stones N Hyperthyroidism N Heart Arrhythmia Y Emphysema N Hernia N Esophagus/swallowing troubles Y Glaucoma N Hypothyroidism Y Lung Disease N Depression N COPD N Pneumonia N Anesthesia Complications N Gastrointestinal Disease N Anxiety Disorder N Hearing Loss N Arthritis Y Serious Illness or Injuries N Blood Clot N Acid Reflux (GERD) Y Cancer N Stroke N Hoarseness N Blood Thinners Y Alcohol Overuse/Alcohol Abuse N High Cholesterol N Liver Disease N Snoring problems Y Headaches N Kidney Disease N Allergies/Hayfever N Heart Problems Y Mental handicap N Heart Conditions N Chronic Obstructive Pulmonary Disease N Ear or Hearing Problems Y Gallbladder Disease N Migraines N Thyroid Problems Y Goiter N Skin Problems N Anemia N Immune System Disorder N Chest Pain N Stomach trouble Y Ulcers N Heart Attack ([place]) N Neurological Problems N Diabetes Y Anticoagulation [...] SNOMED-CT Code Diagnosis ICD10 Code Diagnosis Note [id number] THOM HILL MD [facility] [address] [place] [address] 05/23/2017 13:54:39 06/07/2017 14:45:03 Tear of medial meniscus of knee 187194122 S83.221A [id number] THOM HILL MD SURGERY SCHEDULE [address] [place] [address] 06/07/2017 07:07:07 06/07/2017 07:07:42 [id number] R FREDDIE DAVISON PA-C [facility] [address] [place] [address] 06/15/2017 13:57:37 06/15/2017 16:57:48 Postoperative care 948782895 Z48.89 [id number] THOM HILL MD [facility] [address] [place] [address] 07/04/2017 11:46:09 07/04/2017 14:40:06 Tear of medial meniscus of knee 963858569 S83.231A [id number] THOM HILL MD [facility] [address] [address] 02/08/2018 14:30:31 02/08/2018 16:47:56 Pain in left knee 6820730114 20489 M25.905 [id number] THOM HILL MD [facility] [address] [place] [address] 03/08/2018 11:32:25 03/08/2018 12:36:29 Osteoarthritis of left knee joint 6796432239 78914 M17.12 [id number] THOM HILL MD [facility] [address] [address] 11/19/2018 09:30:57 11/19/2018 12:50:15 Osteoarthritis of knee 589050604 M17.9 [id number] THOM HILL MD [facility] [address] [address] 09/24/2019 10:48:35 09/24/2019 12:03:58 Osteoarthritis of knee 923021318 M17.9 [id number] THOM HILL MD [facility] [address] [address] 09/22/2020 13:14:31 09/22/2020 15:07:38 Pain in right knee 1452693442 42697 M25.561 fat pad impingemen t [id number] KARRIE GRANGER APRN ENDOCRINO [facility]Y [address] [place] [address] 10/13/2020 13:52:54 10/14/2020 06:55:14 Hypothyroidism 26715189 E03.9 -Reviewed and discussed last labs from [...] agreed with plan. All questions answered. [place] 080825430 R23.2 -Rule out endocrine related causes as below.-Dis cussed potential side effects of medication s.-Pt would like testostero ne checked. Advised that we do not treat low testostero ne in women.-Fur ther recommenda tions once results received. [id number] THOM HILL MD [facility] [address] [place] [address] 10/12/2020 13:23:04 10/12/2020 14:10:32 Osteoarthritis of right knee joint 6941577360 03396 M17.11 [id number] MARLEY Hart MD [facility] [address] [place] [place] [address] 10/22/2020 14:37:30 10/22/2020 16:56:29 Pain in right knee 2753022743 50367 M25.561 Osteoarthr itis of knee 199238177 M17.11 [id number] MARLEY Hart MD SURGERY SCHEDULE [address] [place] [address] 12/07/2020 15:12:32 12/09/2020 15:21:44 History of total knee arthroplasty 2900431560 105 Z96.246 [id number] C PURNIMA WHITTAKER PA-C [facility] [address] [place] [address] 12/30/2020 09:54:59 12/30/2020 11:09:49 Postoperative care 690375974 Z48.89 3-week status post right total knee arthroplas ty doing well. Continue with outpatient PT. Okay to leave incision open to air. Continue to focus on range of motion. Patient requested follow-up in 5 weeks due to [place] trip. Cautioned about avoiding therapy on vacation. Follow-up in 5 weeks the Marley hart M.D. [id number] AZALIA FARRIS PA-C [facility] [address] [place] [address] 01/18/2021 13:53:31 01/18/2021 15:03:19 Osteoarthritis of left knee joint 1383735989 79469 M17.12 We discussed conservati ve and surgical [...] upplementa tion left knee Follow up prn [id number] MARLEY Hart MD [facility] [address] [address] 02/02/2021 13:53:31 02/02/2021 15:00:11 History of total knee arthroplasty 2573609981 105 Z96.252 [id number] Florencia WHITTAKER PA-C [facility] [address] [address] 02/24/2021 09:24:04 02/24/2021 09:59:49 History of total knee arthroplasty 2708589550 105 Z96.651 3-month status post right total [...] right knee and formalize left knee surgery [id number] Florencia WHITTAKER PA-C [facility] [address] [address] 03/24/2021 10:15:39 03/24/2021 11:28:15 Osteoarthritis of knee 294395483 M17.9 Left knee replacemen t in 3 weeks. Patient understand s all risks and benefits having recently undergone the contralate ral side. All questions answered to her satisfacti on. 4-month status post right total knee arthroplas ty doing well. Patient scheduled follow-up 3 weeks after the aforementi oned procedure [id number] MARLEY Hart MD SURGERY SCHEDULE [address] [place] [address] 04/14/2021 09:02:38 04/14/2021 13:24:51 [id number] Florencia WHITTAKER PA-C [facility] [address] [address] 04/30/2021 12:00:08 04/30/2021 12:41:22 Postoperative care 659768442 Z48.89 3 status post left total knee arthroplas ty. Wound drainage has resolved. Motion is excellent. Patient requested refill of Lyrica today which is appropriat e. Follow-up in 3 weeks with Marley hart M.D. and repeat three-view x-ray [id number] MARLEY Hart MD [facility] [address] [place] [address] 05/20/2021 10:44:06 05/20/2021 11:34:27 History of total knee arthroplasty 6705976498 105 Z96.652 ASSESSMENT : 6 weeks left [...] e follow-up on both TKAs going forward. [id number] Florencia WHITTAKER PA-C [facility] [address] [place] [address] 07/15/2021 10:45:15 07/15/2021 11:44:27 History of total knee arthroplasty 2238142025 105 Z96.652 Z96.651 3-month status post left [...] pain has resolved on her left knee. [id number] Florencia WHITTAKER PA-C [facility] [address] [place] [address] 09/09/2021 10:29:38 09/09/2021 12:38:15 History of total knee arthroplasty 8485194966 105 Z96.652 Z96.651 Bilateral knee replacemen t [...] March 2022 sooner if she feels necessary [id number] Florencia WHITTAKER PA-C [facility] [address] [place] [address] 04/27/2022 12:43:22 04/27/2022 13:47:08 [id number] AZALIA FARRIS PA-C [facility] [address] [place] [address] 10/27/2022 09:21:23 10/27/2022 10:25:22 History of arthroplasty of right knee 7812336007 420863 Z96.651 Assessment : Right knee arthroplas ty [...] improved. Tendinitis of right pes anserinus tendon 107554688 M76.891 [id number] Florencia WHITTAKER PA-C [facility] [address] [place] [address] 04/28/2023 12:19:28 04/28/2023 15:26:29 History of total knee arthroplasty 8480190259 105 Z96.652 Z96.651 Bilateral total knee arthroplas ty doing excellent at annual surveillan ce visit. A better gait could not be hoped for. Patient was told okay to kneel for Gnosticism mass if she wanted to. Patient understand s it may not be comfortabl e. Patient should follow-up in 2 to 3 years for repeat surveillan ce films [id number] MD LONNIE STAPLES E[facility] [address] [place] [address] 06/20/2024 12:43:08 06/20/2024 13:52:51 Xerostomia 26220309 K11.7 -perceptio n of dry mouth-sali va excretes generously from palate and parotid/reid bmandibula r glands Supraventr icular tachycardia 5348711 I47.10 -hx of-no recurrence since cardiovers ion [place] 670805242 R23.2 History of malignant neoplasm of stomach 187016510 Z85.028 Nausea and vomiting 1693 2000 R11.2 -with eating Slurred speech 414337709 R47.81 Enlargement of tongue 25 730130 Q38.2 Oropharyng eal dysphagia 73630362 R13.12 Dysarthria 7309419 R47.1 -to consider Health Concerns Section Related Observation LastModified by Organization Detai ls LastModified Time None Recorded Concern Status LastModified by Organization Details LastModified Time None Recorded Advance Directives Directive None Recorded Payers Insurance Date Sequence Insurance Name Policy Number Policy Rivas Covered Member ID Rivas Member ID Guarantor Name 06/26/2024 2 [employer]ANCE [employer] (MEDICARE SUPPLEMENT) Leslie A [facility] [id number] Leslie A [facility] 01/08/2020 1 [place] [id number] [facility] [id number] Leslie A [facility] 07/01/2018 PAYMENT PLAN Leslie A [facility] 10/27/2022 2 [place] [id number] Leslie A [place] [id number] Leslie A [facility] 06/17/2024 1 [place] Lesliefahad Martínez [id number] Leslie Martínez 09/24/2019 1 [place] [id number] Azalia Martínez [id number] Leslie Martínez 04/27/2022 2 [place] [id number] Azalia Martínez [id number] Leslie Martínez Notes Date Note Type Note [...] doses per day of narcotic.Ambulating with walkerPT: [facility] health outpatient [facility] o utpatient- [facility] Denies fevers, chills, or wound drainage.They [...] doses per day of narcotic.Ambulating with walkerPT: [facility] home health outpatient HEP o utpatient- [facility] Denies fevers, chills, or wound drainage.They do not request a refill of pain medicine.Patient did have excessive bleeding the has now improved. C PURNIMA WHITTAKER PA-C [address] [place], [address], [facility] 09/09/2021 12:07:34 04/27/2022 text/html 04-27-22: Tracy returns [...] doses per day of narcotic.Ambulating with walkerPT: [facility] health outpatient [facility]P o utpatiprotestant hospital- [facility] Denies fevers, chills, or wound drainage.They [...] doses per day of narcotic.Ambulating with walkerPT: [facility] home health outpatient HEP o utpatient- [facility] Denies fevers, chills, or wound drainage.They do not request a refill of pain medicine.Patient did have excessive bleeding the has now improved. Florencia WHITTAKER PA-C [address] [place], [address], [facility] 04/27/2022 13:49:07 10/27/2022 text/html 10-27-22Mrmisty melchor returns [...] SNF home health outpatient HEP o utpatient- [facility] Denies fevers, chills, or wound drainage.They do not request a refill of pain medicine.Leslie did have some bleeding from the distal extent of her incision in the first couple of days after her left TKA. This resolved with compressive dressings and cessation of motion for a couple of days. At her last visit with Prunima, the incision had completely healed, and we resume PT without restriction. Her primary she has been some neuropathic type pain, worse at night. It is more severe on the left side, than it was with her contralateral right TKA. 04-30-2021:Patient is 3 weeks s/p L TKA.Pain is completely better improving worse 3/10 burning painCurrently taking 3-4 doses per day of narcotic.Ambulating with walkerPT: [facility] home health outpatient HEP o utpatient- [facility] Denies fevers, chills, or wound drainage.They do not request a refill of pain medicine.Patient did have excessive bleeding the has now improved. AZALIA FARRIS PA-C [address] [place], [address], [facility] 10/31/2022 12:39:11 04/28/2023 text/html 04-28-23Mrmisty melchor returns [...] doses per day of narcotic.Ambulating with walkerPT: [facility] o utpatient- [facility] Denies fevers, chills, or wound drainage.They [...] has now improved. Florencia WHITTAKER PA-C [address] [place], [address], [facility] 04/28/2023 12:48:21 06/20/2024 text/html Tracy (69 F) [...] and still works. DAHIANA CANSECO MD [address] [place], [address], [facility] 06/21/2024 08:27:59 OBGyn Episode No OBEpisode recorded.
--- NOTE | 2024-07-17 19:39 | ED_ITS ---
<Statement entered by Loni Gillette MD - 07/17/24 23:35> I was consulted by the SAUL, and we discussed the complexity of the problems being addressed. I approved the treatment and management plan for this patient's care in the emergency department, thus performing a substantive portion of the medical decision making. Loni Gillette MD, GIA, FACEP Discharge Plan Disposition Patient Disposition: Home, Self-Care Condition: Good Prescriptions Prescriptions: New meclizine 25 mg tablet 25 mg PO QID PRN (Reason: dizziness) Qty: 30 0RF No Action Galzin 50 mg (zinc) capsule 50 mg PO DAILY aspirin 81 MG tablet,delayed release (DR/EC) 81 mg PO DAILY meloxicam [Mobic] 15 MG tablet 15 mg PO DAILY cyanocobalamin (vitamin B-12) [Vitamin B-12] 1,000 mcg tablet 1,000 mcg PO DAILY Patient Comments: TAKE 1 TABLET BY MOUTH EVERY DAY FOR 90 DAYS Jardiance 10 mg tablet 10 mg PO DAILY Patient Comments: TAKE 1 TABLET BY MOUTH EVERY MORNING Kerendia 20 mg tablet 20 mg PO DAILY Patient Comments: TAKE 1 TABLET BY MOUTH EVERY DAY atorvastatin 80 mg Tablet 80 mg PO HS Ozempic 1 mg/dose (4 mg/3 mL) pen injector 2 mg SQ WEEKLY carvedilol 25 mg Tablet 25 mg PO BID 30 Days Qty: 60 0RF levothyroxine 125 mcg capsule 125 mcg PO DAILY 30 Days Qty: 30 0RF Edarbyclor 40-12.5 mg tablet 1 tab PO DAILY 30 Days Qty: 30 0RF Rx Instructions: Hold if Systolic blood pressure <110 Xarelto 20 mg tablet 20 mg PO DAILY propafenone 150 mg Tablet 150 mg PO Q8H fexofenadine [Shalonda] 180 mg Tablet 180 mg PO DAILY black cohosh 200 mg Capsule 200 mg PO DAILY Probiotic 3 billion cell Capsule 3,000 mmu cells PO DAILY Rx Instructions: administer with a meal Gimoti 15 mg/spray [place] With Pump 1 spray INTRANASAL QID Rx Instructions: administer into ONE nostril 30 minutes before each meal and at bedtime Referrals Follow up/Referrals: Ziyad Salomon MD [Primary Care Provider, Internal Medicine] - See instructions Activity Restrictions/Add. Instructions Additional Instructions/Restrictions: I have sent meclizine into your pharmacy. If you have continued new or worsening signs or symptoms I suggest referral to ear nose and throat or return to the ER as needed. Clinical Impressions Clinical Impression: Benign paroxysmal positional vertigo Instructions Patient Instructions: DI for Acute Abdominal Pain Print Language Print Language: Telugu Discharge ED Provider: Loni Gillette General Adult HPI General Chief complaint: Abdominal Pain Stated complaint: vomiting,nausea Time Seen by Provider: 07/17/24 19:39 Mode of Arrival: Ambulatory Source of Information: Patient Description of Symptoms (Recalled from ER Triage Doc. by RN): Pt presents for sudden onset of nausea, and generalized abdominal pain. Pt states she has also been feeling like she is going to pass out History of Present Illness HPI narrative: Patient presents for evaluation of syncope. Patient was at a local wine bar participating in a [employer] event. She had had 1 glass of wine. This is not an unusual occurrence for her. However she suddenly began feeling like she was lightheaded and going to pass out and got nauseated. She was brought to the emergency department by her . Triage nurse states patient actually did have a syncopal event in triage but did not have fall or injury and regained consciousness immediately afterwards. Patient reports feeling dizzy and lightheaded when upright and currently at the time of my exam she is lying supine and feeling better and asymptomatic. She does have a history of SVT and is [facility] Christensen and is currently on Xarelto and propafenone. Harsh Mercedes carvedilol Edarbyclor statin and aspirin. She denies currently chest pain shortness of breath fever chills hemoptysis hematochezia melena hematemesis hematur Related Data Home Medications ?Medication ?Instructions ?Recorded ?Confirmed aspirin 81 mg tablet,delayed 81 mg PO DAILY Heart dise ase 03/09/17 10/26/23 release meloxicam 15 mg tablet (Mobic) 15 mg PO DAILY Pain 10/26/23 atorvastatin 80 mg tablet 80 mg PO HS 03/22/23 4 cyanocobalamin (vitamin B-12) 1,000 mcg PO DAILY 03/2210/26/23 1,000 mcg tablet (Vitamin B-12) empagliflozin 10 mg tablet 10 mg PO DAILY 03/22/2302/05 (Jardiance) finerenone 20 mg tablet (Kerendia) 20 mg PO DAILY 09/0510/26/23 semaglutide 1 mg/dose (4 mg/3 mL) 2 mg SQ WEEKLY 03/2210/26/23 subcutaneous pen injector (Ozempic) zinc acetate 50 mg (zinc) capsule 50 mg PO DAILY 03/2910/26/23 (Galzin) rivaroxaban 20 mg tablet (Xarelto) 20 mg PO DAILY 10/1410/26/23 black cohosh 200 mg capsule 200 mg PO DAILY 10/30/23 0 10/30/23 fexofenadine 180 mg tablet 180 mg PO DAILY 10/30/23 lactobacillus combination no.4 3 3,000 mmu cells PO DA IRINA 10/30/23 10/30/23 billion cell capsule (Probiotic) metoclopramide HCl 15 mg/spray 1 spray intranasal QID 10/30/23 10/30/23 nasal spray with pump (Gimoti) propafenone 150 mg tablet 150 mg PO Q8H 10/30/2310/29 Previous Rx's ?Medication ?Instructions ?Recorded azilsartan medoxomil 40 1 tab PO DAILY 30 days #30 t abs 03/22/23 mg-chlorthalidone 12.5 mg tablet (Edarbyclor) carvedilol 25 mg tablet 25 mg PO BID 30 days #60 tab s 03/22/23 levothyroxine 125 mcg capsule 125 mcg PO DAILY 30 days #30 caps 03/22/23 meclizine 25 mg tablet 25 mg PO QID PRN dizziness # 30 tabs 07/17/24 Allergies Allergy/AdvReac Type Severity Reaction Status Date / Time strawberry (From Allergy Unknown ANGIOEDEMA Verified 10/30/23 12:12 STRAWBERRIES (FOOD/DRUG)) Tetracyclines (TETRACYCLINES) Allergy Unknown Hives Verified 10/30/23 12:12 From STRAWBERRIES (FOOD/DRUG) Allergy Unknown ANGIOEDEMA Uncoded 03/29/23 14:32 [facility] Disclaimer: The information contained in this section may have been updated after the patient was seen, as this information can be updated by other users. 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 Surgical History (Updated 10/30/23 @ 12:22 by Moisés Marin RN) History of gastric surgery History of knee replacement History of colon surgery Hx laparoscopic cholecystectomy H/O: hysterectomy Family History Other No significant family history Social History Smoking Status: Never smoker alcohol intake: current alcohol intake frequency: a few times a month substance use type: denies use current occupational status: employed Travel in the last 8 weeks?: None household members: family housing: house caffeine: Yes Have you lived/traveled outside US in past 30 days?: No Contact w/someone who lives/traveled outside US past 30 days?: No Exposure to someone with infectious disease in past 14 days?: No Do you have a fever (greater than 100.4 F or 38 C)?: No Have you tested positive for COVID-19?: No Exposed to someone with COVID-19 in past 14 days?: No Do you have a sore throat?: No Do you have a cough?: No Do you have any weakness?: No Do you have any diarrhea?: No Are you experiencing any unusual bleeding?: No Do you have any muscle aches/pain?: No Do you have any abdominal pain?: No Are you experiencing loss of taste or smell?: No Other Medical History Have you received the Flu Vaccine for this season: No Have you received the Pneumonia Vaccine: Yes ROS Obtained: Yes Systems reviewed as appropriate & no additional complaints except as documented Physical Exam General General appearance: alert and in no apparent distress Respiratory Respiratory exam: Present normal lung sounds bilaterally Cardiovascular Cardiovascular exam: Present regular rate Neurological Exam Neurological exam: Present alert, oriented X3 and CN II-XII intact Medical Decision Making Medical Records Medical records reviewed: Yes I reviewed the patient's medical records. Screening: Per USPSTF and CDC recommendations, given the prevalence of disease in our region, it is our hospital?s policy to screen for HIV and viral Hepatitis for all patients aged 18 and over and those with ongoing risk factors. Gabriele Inquiry Pt receiving controlled substance: No Vital Signs: 07/17/24 19:24 07/17/24 20:03 07/17/24 20:15 Temperature 97.2 F L Temperature Source Oral Pulse Rate 85 83 Pulse Rate [Right] 86 Respiratory Rate 18 22 13 Blood Pressure 114/66 Blood Pressure [Right Arm] 103/62 L Blood Pressure Mean [Right Arm] 75 Blood Pressure Source [Right Arm] Automatic Cuff Blood Pressure Position [Right Arm] Sitting 02 Sat by Pulse Oximetry 99 96 97 Oxygen Delivery Method Room Air 07/17/24 20:30 Temperature Temperature Source Pulse Rate 81 Pulse Rate [Right] Respiratory Rate 12 Blood Pressure 126/67 Blood Pressure [Right Arm] Blood Pressure Mean [Right Arm] Blood Pressure Source [Right Arm] Blood Pressure Position [Right Arm] 02 Sat by Pulse Oximetry 97 Oxygen Delivery Method Lab Data Lab results reviewed: Yes I reviewed the patient's lab results. Lab Results 07/17/24 19:24: POC Glucose 124 H 07/17/24 19:45: WBC 8.4, RBC 4.60, Hgb 14.2, Hct 42.2, MCV 91.7, MCH 30.9, MCHC 33.6, RDW 12.8, Plt Count 230, MPV 10.1, Neut % (Auto) 62.1, Lymph % (Auto) 27.6, [place] % (Auto) 7.8, Eos % (Auto) 1.8, Baso % (Auto) 0.5, Neut # (Auto) 5.2, Lymph # (Auto) 2.3, [place] # (Auto) 0.7, Eos # (Auto) 0.2, Baso # (Auto) 0.0, ESR 14, D-Dimer 0.48, Sodium 139, Potassium 3.7, Chloride 104, Carbon Dioxide 25, Anion Gap 13.7, BUN 24 H, Creatinine 1.10 H, Estimated Creat Clear 70, Estimated GFR 49 L, Est GFR ( Amer) 59, Glucose 118 H, Calcium 9.0, Magnesium 1.5 L , Total Bilirubin 0.6, AST 23, ALT 22, Alkaline Phosphatase 68, Troponin I < 0.01, C-Reactive Protein 5.5 H, Total Protein 6.3, Albumin 4.0, Globulin 2.3, Albumin/Globulin Ratio 1.7 07/17/24 19:45 07/17/24 19:45 Orders (Tests/Meds): ED MEDICATIONS Discontinued Medications Generic Name Dose Route Start Last Admin Trade Name Ritchieq PRN Reason Stop Dose Admin Sodium Chloride 1,000 mls @ 999 mls/hr 07/17/24 19:50 07/17/24 20:17 Sod Chlor 0.9% 1000ml Bag IV 07/17/24 20:50 999 mls/hr .Q1H1M ONE Administration Magnesium Oxide 800 mg 07/17/24 20:53 Magnesium Oxide 400mg Tablet PO 07/17/24 20:54 ONCE ONE Meclizine HCl 25 mg 07/17/24 19:50 07/17/24 20:17 Meclizine 25mg Tablet PO 07/17/24 19:51 25 mg ONCE ONE Administration ORDERS Category Date Time Status XR chest portable Stat Exams 07/17/24 19:51 Taken CBC w/Auto Diff [Complete Blood Count Auto Diff] Stat Lab 07/17/24 19:45 Completed CRP [C-Reactive Protein] Stat Lab 07/17/24 19:45 Completed Comprehensive Metabolic Panel Stat Lab 07/17/24 19:45 Completed D-Dimer Stat Lab 07/17/24 19:45 Completed ESR [Erythrocyte Sedimentation Rate] Stat Lab 07/17/24 19:45 Completed Magnesium Stat Lab 07/17/24 19:45 Completed POC Glucose,Bedside Routine Lab 07/17/24 19:24 Completed Thyroid Panel Stat Lab 07/17/24 19:45 Received Trop I [Troponin I] Stat Lab 07/17/24 19:45 Completed Troponin I Q3H Lab 07/17/24 23:00 Ordered Troponin I Q3H Lab 07/18/24 02:00 Ordered Medical Decision Narrative: In summary patient is a 69-year-old female who presents to the emergency department for evaluation of syncope. Patient is initially with a blood pressure of 103/62 heart rate 86 respiratory rate is 18 satting at 99% on room air upon arrival, afebrile at 97.2. Physical exam is remarkable for well- nourished well-developed 69-year-old female who is currently in no acute distress. Pupils equal round reactive to light without nystagmus, cranial nerves II through XII are intact grossly to exam, patient has no focal neurologic deficits, patient moves all 4 extremities and has full range of motion and is neurovascularly intact in all 4 extremities. Patient however is apprehensive about sitting up as she feels more symptomatic the more vertical she gets in the stretcher.. Differential diagnosis includes vertigo versus arrhythmia versus vasovagal syncope etc. Initial workup will be conducted with hematologic labs twelve-lead EKG plain from chest x-ray. Initial interventions include slight bolus and meclizine. Initial workup reviewed by me shows that her hematologic labs are nonactionable with a white count of 8.4 normal H&H no neutrophilic shift D-dimer 0.48 BUN of 24 creatinine 1.1 GFR 49 glucose 118 magnesium is 1.5 CRP is 5.5 troponins undetectable and my informal interpretation of her chest x-ray shows no acute processes prior to radiology read. Please see final read for formal interpretation. I have ordered repletion of her magnesium. Upon repeat evaluation Dr. Gillette performed Devin maneuvers and patient is currently asymptomatic sitting upright and ambulatory in the ER. Given this patient is appropriate for discharge with prescription for meclizine and instructions should she have persistent or worsening signs or symptoms follow-up PCP return to ER as needed. Critical Care Critical Care Time Critical Care Time: Yes Attestation: On 07/17/24, the high probability of a clinically significant, sudden or life threatening deterioration of the following system(s) required my full and direct attention, intervention and personal management. The time I documented below is in addition to time spent performing reported procedures but includes the following listed in this critical care notation. Total Time Total Critical Care Time: 30
--- NOTE | 2024-07-17 19:51 | XR_ITS ---
PROCEDURE INFORMATION: Exam: XR Chest Exam date and time: 07/17/2024 8:10 PM Age: 69 years old Clinical indication: Other: Syncope TECHNIQUE: Imaging protocol: Radiologic exam of the chest. Views: 1 view. COMPARISON: 1. CT ANGIO CHEST PE PROTOCOL 03/22/2023 3:59 AM 2. CR XR CHEST PORTABLE 11/07/2019 8:34 AM FINDINGS: Lungs: Unremarkable. No consolidation. Pleural spaces: Unremarkable. No pleural effusion. No pneumothorax. Heart/Mediastinum: Unremarkable. No cardiomegaly. Bones/joints: Unremarkable. IMPRESSION: Stable chest x-ray with no acute disease.
[2024-07-17 19:58] LABS: Basophils % 0.5 % (0.1-2.0); Eosinophils # 0.2 Kmm3 (0.0-0.4); Eosinophils % 1.8 % (0.1-12.0); Hematocrit 42.2 % (37.0-47.0); Hemoglobin 14.2 g/dL (12.2-16.2); Immature Granulocytes # 0.02 10^3uL; Immature Granulocytes % 0.2 %; Lymphocytes # 2.3 K/mm3 (0.7-4.5); Lymphocytes % 27.6 % (10-50); Mean Corpuscular HGB Conc 33.6 g/dL (31.8-35.4); Mean Corpuscular Hemoglobin 30.9 pg (27.0-31.2); Mean Corpuscular Volume 91.7 fl (81-99); Mean Platelet Volume 10.1 fl (7.4-10.4); Monocytes # 0.7 K/mm3 (0.1-1.0); Monocytes % 7.8 % (1.7-9.3); Neutrophils # 5.2 K/mm3 (1.8-7.8); Neutrophils % 62.1 % (37.0-80.0); Nucleated Red Blood Cells # 0 10^3/uL; Nucleated Red Blood Cells % 0 %; Platelet Count 230 K/mm3 (142-424); Red Cell Distribution Width 12.8 % (11.5-17.5); Red Cell Distribution Width-SD 42.7 fL; White Blood Count 8.4 K/mm3 (4.8-10.8)
[2024-07-17 20:03] VITALS: PULSE 85; RESP 22; O2SAT 96
[2024-07-17 20:08] LABS: Alanine Aminotransferase 22 U/L (12-78); Albumin/Globulin Ratio 1.7 (1.1-1.8); Alkaline Phosphatase 68 U/L (38-126); Anion Gap 13.7 mEq/L (5-15); Aspartate Amino Transferase 23 U/L (14-36); Bilirubin,Total 0.6 mg/dl (0.2-1.3); Blood Urea Nitrogen 24 mg/dl (7-17); Carbon Dioxide 25 mmol/L (22.0-30.0); Chloride 104 mmol/L (98-107); Creatinine Clearance Estimated 70 mL/min (50-200); Estimated Glomerular Filt Rate 49 ml/min (>60); GFR (African American) 59 ML/MIN (>60); Globulin 2.3 g/dL (1.3-3.2); Glucose 118 mg/dl (74-100); Potassium 3.7 mmoL/L (3.5-5.1); Sodium 139 mmol/L (136-145); Total Protein,Serum 6.3 g/dl (6.3-8.2)
[2024-07-17 20:09] LABS: Magnesium 1.5 mg/dl (1.6-2.3)
[2024-07-17 20:14] LABS: C-Reactive Protein 5.5 mg/L (0-4)
[2024-07-17 20:15] VITALS: BP 114/66; PULSE 83; RESP 13; O2SAT 97
[2024-07-17 20:16] LABS: D-Dimer 0.48 ug/mL (0.0-0.5)
[2024-07-17] MEDS: 0.9 % SODIUM CHLORIDE 1000ML 1,000 ML 999 ML IV (20:17)
[2024-07-17] MEDS: MECLIZINE 25MG TABLET 25 MG PO (20:17)
[2024-07-17 20:28] LABS: Erythrocyte Sedimentation Rate 14 mm/hr (0-30)
[2024-07-17 20:30] VITALS: BP 126/67; PULSE 81; RESP 12; O2SAT 97
[2024-07-17 20:35] LABS: Troponin I < 0.01 ng/ml (0.00-0.034)
[2024-07-17 20:59] VITALS: BP 126/67; PULSE 82; RESP 16; TEMP 36.6; O2SAT 98
[2024-07-17] MEDS: MAGNESIUM OXIDE 400MG TABLET 800 MG PO (21:00)
[2024-07-17 21:42] LABS: Free Thyroxine Index 3.9 ug/dL (5.93-13.13); T4 (Thyroxine) 11.7 ug/dl (5.53-11.0); Triiodothryronine (T3) Uptake 33 % (23.5-40.5)
== END 2024-07-17 21:01 | disposition home or self-care (01) ==
PROVIDERS: Physician Assistant; Emergency Provider Student in an Organized Health Care Education/Training Program; PCP Internal Medicine Adolescent Medicine
DX: R10.84 Generalized abdominal pain (principal); E83.42 Hypomagnesemia; R42 Dizziness and giddiness; R11.2 Nausea with vomiting, unspecified; E03.9 Hypothyroidism, unspecified
CPT/HCPCS: 71045; 80053; 82962; 83735; 84436; 84443; 84479; 84484; 85025; 85378; 85651; 86140; 93005; 96360; 99284; J7030

== ENCOUNTER 2024-08-17 08:05 | Outpatient (CLI) | payer MEDICARE, SELFPAY ==
--- OUTSIDE RECORDS SUMMARY | 2024-08-17 08:12 | XMS_ITS | Data Portability ---
Author Organization [facility] Address [address] [place] [address] Care Team Providers Care First Assistant Manager Name Role Phone KISHA AREVALO Medical Oncologist [phone] RAYMUNDO SNYDER Primary Care Provider Assessment Encounter Date Assessment Date Assessment LastModified by Organization Details LastModified Time 04/27/2022 04/27/2022 1 and 2-year status post staged bilateral knee replacement doing well. Patient's only issue is poor endurance. She is working on that we discussed how endurance activities are the best way to improve endurance. Follow-up in 2 to 3 years time for repeat radiograph [email or web address] Not available 04/27/2022 13:48:51 Plan of Treatment Reminders Order Date Submit Date Provider Last Modified By Organization Details Last Modified Time Details Appointments None recorded. Lab None recorded. Referral None recorded. Procedures None recorded. Surgeries None recorded. Imaging None recorded. Medication Orders pilocarpi ne 5 mg tablet 2024 025 [email or web address] [id number], [address] [place], [address], 17:59:27 Medrol (Diogo) 4 mg tablets in a dose pack 2022 023 [email or web address] [id number], [address] [place], [address], 13:00:04 Voltaren Arthritis Pain 1 % topical gel 2022 023 [email or web address] [facility], [address] [place], [address], 12:59:35 Patient TargetsNo targets recorded. Patient Instructions Encounter Date Encounter Id Patient Instructions Last Modified By Organization Details Last Modified Time 06/20/2024 [id number] 1. Discussed Shalonda and cardiac medications which [...] 04/28/1904/27/2022 XR, knee, 3 view [place] [facility] [address] [place] [address] Patijill t Name: GYPSY Greer MIDDEN Patijill ybarra : 89 Patien t Orderi ng Provid er: Florencia BRUNNER SON EXAM DATE: 2022 EXAM: XR [...] Morgan miranda MD on 023 1:09 PM [email or web address] [facility] [place] [address] , [place], [address], 04/28/2022 09:14:07 10/28/19 23 10/27/2022 XR, knee, 3 view [facility] [address] [address] Patien t Name: GYPSY Greer MIDDEN Patien t : 952 Patien t Orderi ng Provid er: AZALIA [...] knee replac ement Interp reted By: Azalia oLaiza MD Electr onical ly Signed By: Azalia Loaiza MD on 023 9:58 AM [email or web address] [facility] [place] [address] , [place], [address], 11/22/2022 09:40:51 04/28/19 24 04/28/2023 XR, knee, 3 view [facility] [address] [place] [address] Patien t Name: GYPSY Greer MIDDEN Patien t : 952 Patien t Orderi ng Provid er: Angeles BRUNNER SON EXAM DATE: 2023 EXAM: XR MARISABEL KNEES 3 VIEWS HISTOR Y: Follow up of prior surger cedric MARIA EDVIN: 023 FINDIN GS: Again visual [...] Morgan miranda MD on 024 12:32 PM jolly [facility] [place] [address] , [place], [address], 05/11/2023 10:11:11 Result Notes Documentation Provider Name and Address Organization Details Recorded Time Xr, Knee, 3 View : [facility] [place] [address] [place] [address] Patient Name: LESLIE MURCIA Patient : 1955 Patient Ordering Provider: Florencia WHITTAKER EXAM DATE: 04/27/2022 EXAM: XR MARISABEL KNEES 3 VIEWS HISTORY: Followup of prior surgery. COMPARISON: 05/20/2021 FINDINGS: Again visualized are bilateral total knee arthroplasties. There is no evidence of loosening or complication. No fracture is identified. IMPRESSION: 1. There are bilateral total knee arthroplasties in place without evidence of loosening or complication. Interpreted By: Flaco Rios MD Florencia WHITTAKER PA-C [address] [place] [address] [place], [address], [facility] 04/28/2022 09:14:07 Xr, Knee, 3 View : [facility] [address] [place] [address] Patient Name: LESLIE MURCIA Patient : 1955 Patient Ordering Provider: AZALIA FARRIS EXAM DATE: 10/27/2022 EXAM: XR RT KNEE 3 VIEWS COMPARISON: 04/27/2022 HISTORY: Pain. Surgery follow-up FINDINGS: There is a right total knee replacement. The patella aligns normally. No complication. No loosening or fracture. Contralateral knee: Grossly uncomplicated appearing total knee replacement IMPRESSION: 1. Uncomplicated appearing right total knee replacement Interpreted By: Azalia Loaiza MD IA FARRIS PA-C [address] [place], [address], [facility] 11/22/2022 09:40:51 Xr, Knee, 3 View : [facility] [address] [place] [address] Patient Name: LESLIE MURCIA Patient : 1955 Patient Ordering Provider: Angeles WHITTAKER EXAM DATE: 04/28/2023 EXAM: XR MARISABEL KNEES 3 VIEWS HISTORY: Followup of prior surgery. COMPARISON: 10/27/2022 FINDINGS: Again visualized are bilateral total knee arthroplasties. There is no evidence of loosening or complication. No fracture is identified. There is enthesopathic spurring along the extensor mechanism in both knees. IMPRESSION: 1. There are bilateral total knee arthroplasties in place without evidence of loosening or complication. Interpreted By: Flaco Rios MD Florencia WHITTAKER PA-C [address], [address], [facility] 05/11/2023 10:11:11 Problems No Known Problems Procedures Surgical History Date Name Laterality Status Provider Name and Address Organization Details Recorded Time 04/12/19 22 Total knee arthroplasty completed Fco Cristina [facility] 04/29/2021 10:43:48 01/19/20 21 Synvisc One Injection completed AZALIA FARRIS PA-C [address] [place], [address], [facility] 01/18/2021 14:56:33 12/08/19 21 Total knee arthroplasty completed Fco Cristina [facility] 12/30/2020 10:09:09 09/24/19 20 Synvisc One Injection completed Jaclyn Boucher [facility] 09/24/2019 10:59:59 11/20/19 19 Synvisc One Injection completed THOM HILL MD [address] [place], [address], [facility] 11/19/2018 13:40:58 03/08/19 19 Injection Joint/Bursa, Major completed Kisha Max [facility] 03/08/2018 12:16:04 06/16/19 18 Suture/Staple removal completed Ar DAVISON PA-C [address] [place], [address], [facility] 06/15/2017 14:26:48 Corporate Director Surgery completed Olivia Rothman [facility] 05/23/2017 14:42:12 Imaging Results None recorded. Procedure Notes None recorded. Medical Equipment None Reported. Allergies Allergen ID Allergen Name Allergen Category Reaction Reaction Severity Criticality Documentation Date Start Date Code Code System Note Provider Name and Address Organization Details Recorded Time 097197 tetracycl ine medicatio n rash Not available Not available 05/23/2017 92991 RxNorm Olivia Rochason [facility] 8 14:39:03 Medications Name Sig Start [...] completed Not Available Not Available Not Available [place] 10 mg-325 mg tablet Take 1 tablet [...] Updated DateTime 04/27/2022 160.02 cm 41.6 kg/m2 763965.21 g [facility] 04/27/2022 12:51:22 Date Recorded Body height Body mass index (BMI) Body weight Provider Name and Address Organization Details Last Updated DateTime 04/28/2023 160.02 cm 41.6 kg/m2 280773.21 g [facility] 04/28/2023 12:30:13 Date Recorded Body weight Body mass index (BMI) Body height Body temperature Heart rate Systolic And Diastolic Provider Name and Address Organization Details Last Updated DateTime 78548.5 4 g 38.7 kg/m2 160.02 cm 97.5 [degF] 75 /min 128/75 mm[Hg] Carmenza Pankaj [facility] 13:03:24 Date Recorded Body height Body mass index (BMI) Body weight Systolic And Diastolic Provider Name and Address Organization Details Last Updated DateTime 09/09/2021 160.02 cm 41.6 kg/m2 289263.21 g 124/80 mm[Hg] Karrie Garnett [facility] 09/09/2021 10:32:55 Date Recorded Body height Body mass index (BMI) Body weight Provider Name and Address Organization Details Last Updated DateTime 10/27/2022 160.02 cm 41.6 kg/m2 166365.21 g Karrie Garnett [facility] 10/27/2022 09:31:54 Social History Question Answer Notes LastModified by Organizat ion Details LastModified Time Tobacco Smoking Status Never Smoker Olivia Rothman [facility] 05/23/2017 14:42:19 What Was The Date Of Your Most Recent Tobacco Screening? 03/08/2018 Information n ot available 04/02/2019 Sex: Female Functional Status Question Answer Note LastModified by Organizat ion Details LastModified Time What is your level of alcohol consumption? Occasional [email or web address] Information not available 06/20/2024 Mental Status None recorded. Family History Relationship Description Onset Age of this Age Resolved Age Notes LastModified by Organization Details LastModified Time Father Family history of Angina [email or web address] Not available 2024 12:46:22 Father Malignant neoplastic disease Colon [email or web address] Not available 06/20 12:55:37 Father Hearing loss [email or web address] Not purvi ilable 06/20/2024 12:55:48 Father Heart disease [email or web address] Not available 06/20 12:56:09 Father Essential hypertension [email or web address] Not available 12:56:28 Mother Heart disease [email or web address] Not available 06/20 12:56:09 Mother Essential hypertension [email or web address] Not available 12:56:28 Mother Cerebrovascu lar accident [email or web address] Not available 12:56:36 Mother Diabetes mellitus [email or web address] Not available 06/20 12:56:44 Medical History Condition Response Coronary Artery Disease N Other N Anxiety/Depression N Gout N Thyroid Disease Y Kidney Stones N Hyperthyroidism N Heart Arrhythmia Y Emphysema N Hernia N Esophagus/swallowing troubles Y Hypothyroidism Y Lung Disease N Depression N Glaucoma N COPD N Pneumonia N Anesthesia Complications N Gastrointestinal Disease N Anxiety Disorder N Arthritis Y Hearing Loss N Serious Illness or Injuries N Blood Clot [...] Stomach trouble Y Ulcers N Heart Attack (OR) N Neurological Problems N Diabetes Y Anticoagulation [...] SNOMED-CT Code Diagnosis ICD10 Code Diagnosis Note [id number] THOM HILL MD [facility] [address] [address] 05/23/2017 13:54:39 06/07/2017 14:45:03 Tear of medial meniscus of knee 229221726 S83.221A [id number] THOM HILL MD SURGERY SCHEDULE [address] [place] [address] 06/07/2017 07:07:07 06/07/2017 07:07:42 [id number] Ar DAVISON PA-C [facility] [address] [place] [address] 06/15/2017 13:57:37 06/15/2017 16:57:48 Postoperative care 490854475 Z48.89 [id number] THOM HILL MD [facility] [address] [place] [address] 07/04/2017 11:46:09 07/04/2017 14:40:06 Tear of medial meniscus of knee 539457976 S83.231A [id number] THOM HILL MD [facility] [address] [address] 02/08/2018 14:30:31 02/08/2018 16:47:56 Pain in left knee 4353536645 67883 M25.432 [id number] THOM HILL MD [facility] [address] [place] [address] 03/08/2018 11:32:25 03/08/2018 12:36:29 Osteoarthritis of left knee joint 6330358978 91957 M17.12 [id number] THOM HILL MD [facility] [address] [address] 11/19/2018 09:30:57 11/19/2018 12:50:15 Osteoarthritis of knee 225434545 M17.9 [id number] THOM HILL MD [facility] [address] [address] 09/24/2019 10:48:35 09/24/2019 12:03:58 Osteoarthritis of knee 297717938 M17.9 [id number] THOM HILL MD [facility] [address] [address] 09/22/2020 13:14:31 09/22/2020 15:07:38 Pain in right knee 7858822690 56271 M25.561 fat pad impingemen t [id number] KARRIE GRANGER APRN ENDOCRINO LOGY [address] [place] [address] 10/13/2020 13:52:54 10/14/2020 06:55:14 Hypothyroidism 05253372 E03.9 -Reviewed and discussed last labs from [...] agreed with plan. All questions answered. [place] 552687348 R23.2 -Rule out endocrine related causes as below.-Dis cussed potential side effects of medication s.-Pt would like testostero ne checked. Advised that we do not treat low testostero ne in women.-Fur ther recommenda tions once results received. [id number] THOM HILL MD [facility] [address] [place] [address] 10/12/2020 13:23:04 10/12/2020 14:10:32 Osteoarthritis of right knee joint 3088187264 18235 M17.11 [id number] MARLEY Hart MD ORTH[facility]ED[facility] [address] [place] [address] 10/22/2020 14:37:30 10/22/2020 16:56:29 Pain in right knee 3683712394 11186 M25.561 Osteoarthr itis of knee 137989885 M17.11 [id number] MARLEY Hart MD SURGERY SCHEDULE [address] [place] [address] 12/07/2020 15:12:32 12/09/2020 15:21:44 History of total knee arthroplasty 5935948519 105 Z96.326 [id number] C PURNIMA WHITTAKER PA-C [facility] [address] [place] [address] 12/30/2020 09:54:59 12/30/2020 11:09:49 Postoperative care 635299856 Z48.89 3-week status post right total knee arthroplas ty doing well. Continue with outpatient PT. Okay to leave incision open to air. Continue to focus on range of motion. Patient requested follow-up in 5 weeks due to [place] trip. Cautioned about avoiding therapy on vacation. Follow-up in 5 weeks the Marley hart M.D. [id number] AZALIA FARRIS PA-C [facility] [address] [place] [address] 01/18/2021 13:53:31 01/18/2021 15:03:19 Osteoarthritis of left knee joint 2830870470 10478 M17.12 We discussed conservati ve and surgical treatment options for knee arthritis. We discussed the importance of weight loss, and low-impact aerobic activity. We discussed judicious use of NSAIDs, if possible, or Tylenol. We discussed corticoste roid injections and viscosuppl ementation . We discussed bracing, physical therapy, activity modificati on, and use of assistive ambulatory devices. Plan today is for viscosuppl ementation left knee Follow up prn [id number] MARLEY Hart MD [facility] [address] [address] 02/02/2021 13:53:31 02/02/2021 15:00:11 History of total knee arthroplasty 4541035321 105 Z96.513 [id number] Florencia WHITTAKER PA-C [facility] [address] [address] 02/24/2021 09:24:04 02/24/2021 09:59:49 History of total knee arthroplasty 0339520299 105 Z96.651 3-month status post right total [...] right knee and formalize left knee surgery [id number] Florencia WHITTAKER PA-C [facility] [address] [place] [address] 03/24/2021 10:15:39 03/24/2021 11:28:15 Osteoarthritis of knee 490437132 M17.9 Left knee replacemen t in 3 weeks. Patient understand s all risks and benefits having recently undergone the contralate ral side. All questions answered to her satisfacti on. 4-month status post right total knee arthroplas ty doing well. Patient scheduled follow-up 3 weeks after the aforementi oned procedure [id number] MARLEY Hart MD SURGERY SCHEDULE [address] [place] [address] 04/14/2021 09:02:38 04/14/2021 13:24:51 [id number] Florencia WHITTAKER PA-C [facility] [address] [address] 04/30/2021 12:00:08 04/30/2021 12:41:22 Postoperative care 959800575 Z48.89 3 status post left total knee arthroplas ty. Wound drainage has resolved. Motion is excellent. Patient requested refill of Lyrica today which is appropriat e. Follow-up in 3 weeks with Marley hart M.D. and repeat three-view x-ray [id number] MARLEY Hart MD ORTHOPEDI CS [address] [place] [address] 05/20/2021 10:44:06 05/20/2021 11:34:27 History of total knee arthroplasty 7158640241 105 Z96.652 ASSESSMENT : 6 weeks left [...] e follow-up on both TKAs going forward. [id number] Florencia WHITTAKER PA-C [facility] [address] [address] 07/15/2021 10:45:15 07/15/2021 11:44:27 History of total knee arthroplasty 2347686429 105 Z96.652 Z96.651 3-month status post left [...] pain has resolved on her left knee. [id number] [facility] [address] [place] [address] 09/09/2021 10:29:38 09/09/2021 12:38:15 History of total knee arthroplasty 5282893333 105 Z96.652 Z96.651 Bilateral knee replacemen t [...] March 2022 sooner if she feels necessary [id number] [facility] [address] [place] [address] 04/27/2022 12:43:22 04/27/2022 13:47:08 [id number] [facility] GUTIERREZI [facility] [address] [place] [address] 10/27/2022 09:21:23 10/27/2022 10:25:22 History of arthroplasty of right knee 7201778647 238189 Z96.651 Assessment : Right knee arthroplas ty [...] improved. Tendinitis of right pes anserinus tendon 634139108 M76.891 [id number] C PURNIMA WHITTAKER PA-C [facility] [address] [address] 04/28/2023 12:19:28 04/28/2023 15:26:29 History of total knee arthroplasty 3038409800 105 Z96.652 Z96.651 Bilateral total knee arthroplas ty doing excellent at annual surveillan ce visit. A better gait could not be hoped for. Patient was told okay to kneel for Yazidi mass if she wanted to. Patient understand s it may not be comfortabl e. Patient should follow-up in 2 to 3 years for repeat surveillan ce films [id number] MD LONNIE STAPLES [facility] [address] [place] [address] 06/20/2024 12:43:08 06/20/2024 13:52:51 Xerostomia 05590685 K11.7 -perceptio n of dry mouth-sali va excretes generously from palate and parotid/reid bmandibula r glands Supraventr icular tachycardia 8273492 I47.10 -hx of-no recurrence since cardiovers ion [place] 343222498 R23.2 History of malignant neoplasm of stomach 621096828 Z85.028 Nausea and vomiting 1693 2000 R11.2 -with eating Slurred speech 076191489 R47.81 Enlargement of tongue 25 609283 Q38.2 Oropharyng eal dysphagia 29321137 R13.12 Dysarthria 0422428 R47.1 -to consider Health Concerns Section Related Observation LastModified by Organization Detai ls LastModified Time None Recorded Concern Status LastModified by Organization Details LastModified Time None Recorded Advance Directives Directive None Recorded Payers Insurance Date Sequence Insurance Name Policy Number Policy Rivas Covered Member ID Rivas Member ID Guarantor Name 06/26/2024 2 [employer] [employer] (MEDICARE SUPPLEMENT) Leslie Gonzalezden [id number] Leslie A Midden 01/08/2020 1 [place] [id number] Azalia Murcia [id number] Leslie Greer Midden 07/01/2018 PAYMENT PLAN Leslie Greer Midden 10/27/2022 2 [place] [id number] Leslie A Midden [id number] Leslie A Midden 06/17/2024 1 [place] Leslie Greer Midden [id number] Leslie A Midden 09/24/2019 1 [place] [id number] Azalia Murcia [id number] Leslie A [facility] 04/27/2022 2 [place] [id number] Azalia Murcia [id number] Leslie Greer [facility] Notes Date Note Type Note Provider Name and Address Organization Details Recorded Time 09/09/2021 text/html 09/09/2021eborah is 9 months S/P right TKA preformed on (12/07/20) and 5 months S/P (04/12/21) left TKA. She voices right knee pain and swelling have improved, left knee does have slight swelling in the morning with stiffness with soreness, she denies pain. She is still following HEP. 07-15-21: Ms. Murcia returns for recheck of bilateral TKA. She is 7 months (12/07/20) post right TKA and 3 months (04/12/21) left TKA. 05-20-2021:Patient is 6 weeks s/p L TKA.Pain is improvingCurrently taking <3 doses per day of narcotic.Ambulating with walkerPT: outpatient- [facility] Denies fevers, chills, [...] is 3 weeks s/p L TKA.Pain is 3/10 burning painCurrently taking 3-4 doses per day of narcotic.Ambulating with walkerPT: outpatient- [facility] Denies fevers, chills, or wound drainage.They do not request a refill of pain medicine.Patient did have excessive bleeding the has now improved. Florencia WHITTAKER PA-C [address] [place], [address], [facility] 09/09/2021 12:07:34 04/27/2022 text/html 04-27-22: [...] She is still following HEP. 07-15-21: Ms. Murcia returns for recheck of bilateral TKA. She is 7 months (12/07/20) post right TKA and 3 months (04/12/21) left TKA. 05-20-2021:Patient is 6 weeks s/p L TKA.Pain is improvingCurrently taking <3 doses per day of narcotic.Ambulating with walkerPT: outpatient- [facility] Denies fevers, chills, [...] is 3 weeks s/p L TKA.Pain is 3/10 burning painCurrently taking 3-4 doses per day of narcotic.Ambulating with walkerPT: outpatient- [facility] Denies fevers, chills, or wound drainage.They do not request a refill of pain medicine.Patient did have excessive bleeding the has now improved. Florencia WHITTAKER PA-C [address] [place], [address], [facility] 04/27/2022 13:49:07 10/27/2022 text/html 10-27-22Mrkayleigh melchor returns for evaluation of R TKA [...] She is still following HEP. 07-15-21: Ms. Murcia returns for recheck of bilateral TKA. She is 7 months (12/07/20) post right TKA and 3 months (04/12/21) left TKA. 05-20-2021:Patient is 6 weeks s/p L TKA.Pain is improvingCurrently taking <3 doses per day of narcotic.Ambulating with walkerPT: outpatient- [facility] Denies fevers, chills, [...] is 3 weeks s/p L TKA.Pain is 3/10 burning painCurrently taking 3-4 doses per day of narcotic.Ambulating with walkerPT: outpatient- [facility] Denies fevers, chills, or wound drainage.They do not request a refill of pain medicine.Patient did have excessive bleeding the has now improved. AZALIA FARRIS PA-C [address] [place], [address], [facility] 10/31/2022 12:39:11 04/28/2023 text/html 04-28-23MrnawafClemente melchor returns to clinic for routine evaluation [...] She is still following HEP. 07-15-21: Ms. Murcia returns for recheck of bilateral TKA. She is 7 months (12/07/20) post right TKA and 3 months (04/12/21) left TKA. 05-20-2021:Patient is 6 weeks s/p L TKA.Pain is improvingCurrently taking <3 doses per day of narcotic.Ambulating with walkerPT: outpatient- [facility] Denies fevers, chills, [...] is 3 weeks s/p L TKA.Pain is 3/10 burning painCurrently taking 3-4 doses per day of narcotic.Ambulating with walkerPT: outpatient- [facility] Denies fevers, chills, or wound drainage.They do not request a refill of pain medicine.Patient did have excessive bleeding the has now improved. 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 DAHIANA CANSECO MD [facility] [place], [address], [facility] 06/21/2024 08:27:59 OBGyn Episode No OBEpisode recorded.
--- OUTSIDE RECORDS SUMMARY | 2024-08-17 08:12 | XMS_ITS | Encounter Summary ---
Author Organization [employer] ([place], [place], [place], [place]) Address [address] [place] [address] Care Team Providers Care Computer Operations Specialist Name Role Phone Unavailable Primary Care Provider Unavailabl e Encounter Details Date Type Department Care Team (Late st Contact Info) Description 12/07/2020 Transcribed Document [facility] Family Medicine [facility] [place] [address] ProviderJason MD [address] [place] [address] Social History Tobacco Use Types Packs/Day Years Used Date Smoking Tobacco: Never Assessed Comments Unknown Sex and Gender Information Value Date Recorded Sex Assigned at Female 08/10/2021 7:43 PM CDT Legal Sex Female 7:43 PM CDT Gender Identity Female 08/10/2021 7:43 PM CDT Sexual Orientation Not on file documented as of this encounter Miscellaneous Notes * Cerner Conversion Note - Jason ProviderMD - 12/07/2020 2:46 PM CDT Treatment Intervention, PT Entered On: 12/08/2020 11:38 EDT Performed On: 12/08/2020 11:32 EDT by KISHA RAYGOZA, PARDEEP General Information, PT Visit Type, PT : Treatment Note Patient Orders : Order Date Order Ordering 12/07/2020 12:07 PT Evaluation and Treatment Ordered By: MARLEY CLARK MD-ORT 12/07/2020 12:07 PT Treatment Instructions Ordered By: MARLEY CLARK MD-ORT 12/07/2020 12:07 PT Treatment Instructions Ordered By: MARLEY CLARK MD-ORT 12/07/2020 12:07 PT Treatment Instructions Ordered By: MARLEY CLARK MD-ORT 12/07/2020 12:07 PT Treatment Instructions Ordered By: MARLEY CLARK MD-ORT 12/07/2020 12:07 PT Treatment Instructions Ordered By: MARLEY CLARK MD-ORT 12/07/2020 14:46 PT Additional Treatment Ordered By: KISHA RAYGOZA, PT Active Diagnoses : No Qualifying Diagnoses Therapy Diagnosis, PT : Aftercare following R TKA Admission Date : 12/07/2020 05:53 Co-treated by, PT : Occupational Therapist Personal Devices : Personal Devices No Devices Recorded Assistive Devices : Assistive Devices No Devices Recorded KISHA RAYGOZA, PT - 12/08/2020 11:32 EDT General Status Patient Received Status : Up in chair KISHA RAYGOZA PT - 12/08/2020 11:32 EDT Treatment Start Time : 12/08/2020 10:57 EDT KISHA RAYGOZA PT - 12/08/2020 11:38 EDT Patient Left Status : Up in chair, RN/PCT informed, Family/Visitors at bedside, Communication board completed, All needs met and within reach, Other: SCd's, ICE, Bone foam KISHA RAYGOZA, PT - 12/08/2020 11:32 EDT RN/PCT Informed Comment : CHIP castillo and pt consent Treatment End Time : 12/08/2020 11:29 EDT Treatment Time : 32 Minute(s) KISHA RAYGOZA PT - 12/08/2020 11:38 EDT Edu Topics Physical Therapy Education Grid Bed Mobility Training : Returns demonstration Gait Training : Returns demonstration Home Program/Exercises : Verbalizes understanding Role of Physical Therapy : Verbalizes understanding Safety : Verbalizes understanding Stair Training : Returns demonstration Therapeutic Exercises : Returns demonstration Transfer Training : Returns demonstration Use of Assistive Device : Returns demonstration KISHA RAYGOZA, PT - 12/08/2020 11:32 EDT Indication Assesessment, PT Physical Therapy Indicated : KISHA Sutton PT - 12/08/2020 11:32 EDT Plan of Care, PT PT Tx Plan/Goals Established w Patient : KISHA Sutton PT - 12/08/2020 11:32 EDT Skilled Nursing Goals Mobility/Bed Mobility LTG PT Grid Goal #1 Activity : Sit to stand Assist : Supervision or set-up Equipment : Walker, front wheel Date to Meet : 12/21/2020 EST Goal Status : Goal met Date Met : 12/08/2020 EDT KISHA RAYGOZA, PT - 12/08/2020 11:32 EDT Ambulation LTG Grid Goal #1 Device : Walker, front wheel Distance : 100ft Assist : Supervision or set-up Date to Meet : 12/21/2020 EST Goal Status : Goal met Date Met : 12/08/2020 EDT KISHA RAYGOZA, PT - 12/08/2020 11:32 EDT Stairs LTG Grid Goal #1 Device : None Number of Steps : 5 Handrail(s) : One handrail Assist : Assist, minimal Date to Meet : 12/21/2020 EST Goal Status : Goal met Date Met : 12/08/2020 EDT KISHA RAYGOZA, PT - 12/08/2020 11:32 EDT Treatment Note Subjective Comment : Pt agreeable to PT treatment, denies pain at rest. KISHA RAYGOZA, PT - 12/08/2020 11:32 EDT Patient's Response to Treatment : Pt tolerated post-op TKA therex and gait training well with no acute complaints. Education provided about performance of HEP 3x per day and to emphasize ROM tasks during initial recovery phase. Reinforced progressive use of Bone Foam to promote knee extension and increasing use of bone foam as tolerated. Additional Objective Information : R knee ROM 0-103 degrees, No Joint defensive secondary coach present during treatment. SBA gait x 150ft to therapy gym with RWx. Min verbal cues for safe use of assistive device. CGA ascended/descended 5 stairs with single rail and CGA, requiring min verbal cues to promote proper sequencing, 'up with the good, down with the bad.' Pt utilized RWx to ascend/descend a single platform step to simulate entering the home with CGA. Pt participated in 10 repetitions of seated LAQ, marching in place, and heel slides; supine ankle pumps, quad sets glut sets, SAQ, SLR, heel slides, and hip abduction. Assessment : Pt has currently met 3/3 goals for therapy and is appropriate for discharge from therapy services s/p R TKA. Pt's current R knee ROM is 0-103 degrees. Pt is ambulatory with SBA x 150ft with RWx and performs all bed mobility and sit-stand transfer with a rolling walker and independence/modified independence. Pt has successfully navigated 5 stairs with RWx and CGA with proper sequencing and was issued an HEP for continued RLE ROM and strengthening. Pt thoroughly educated about emphasizing ROM tasks and use of Bone Foam during acute phase of TKA rehab. KISHA RAYGOZA, PT - 12/08/2020 11:38 EDT Plan for Treatment : discontinue KISHA RAYGOZA, PT - 12/08/2020 11:32 EDT Pain Assessment Pain Scaled Used : 0-10 Pain scale Pain Score Pre-Intervention : 0 Pain Score Post-Intervention. : 0 KISHA RAYGOAZ PT - 12/08/2020 11:32 EDT Image 1 - Images currently included in the form version of this document have not been included in the text rendition version of the form. [facility] PT Charges PT Therap. Exercise 15 min : 1 KISHA RAYGOZA, PT - 12/08/2020 11:38 EDT Gait Training Each 15 Min : 1 KISHA RAYGOZA PT - 12/08/2020 11:32 EDT documented in this encounter Plan of Treatment Not on file documented as of this encounter Visit Diagnoses Not on filedocumented in this encounter
--- OUTSIDE RECORDS SUMMARY | 2024-08-17 08:12 | XMS_ITS | Encounter Summary ---
Author Organization [employer] ([place], [place], [place], [place]) Address [address] [place] [address] Care Team Providers Care Acid Tender Name Role Phone Unavailable Primary Care Provider Unavailabl e Encounter Details Date Type Department Care Team (Late st Contact Info) Description 12/08/2020 Transcribed Document [facility] Family Medicine [address] [place] [address] ProviderJason MD [address] [place] [address] Social History Tobacco Use Types [...] Cerner Conversion Note - Jason ProviderMD - 12/08/2020 4:14 PM CDT Initial Discharge Planning Entered On: 12/08/2020 16:24 EDT Performed On: 12/08/2020 16:14 EDT by ARMIN TABOR RN-Book Shelver Initial Assessment I Previously Documented Living Environment : No qualifying data available. Living Situation : Home Patient Lives With : Spouse Is the Patient a Caregiver at Home? : No Emergency Contact #1 : Moisés Martínez Emergency Contact #1 Emergency Contact #1 Relationship : son Emergency Contact #2 : Moisés Martínez Emergency Contact #2 Emergency Contact #2 Relationship : spouse ARMIN TABOR RN-Book Shelver - 12/08/2020 16:14 EDT Initial Assessment II Sensory and Motor Deficits : None Current Home Treatments and Equipment : None Does the Patient have a Floor to SNF Benefit? : No ARMIN TABOR RN-Book Shelver - 12/08/2020 16:14 EDT Discharge Needs I Anticipated Discharge Date : 12/08/2020 EDT Anticipated Discharge To, CM : Home with family care Current Home Treatment/Equipment : Current Home Treatment/Equipment No qualifying data available. Post Acute/Home Treatments : Bedside commode, Walker Documentation Status Complete : Yes ARMIN TABOR RN-Book Shelver - 12/08/2020 16:14 EDT Discharge Needs II Professional Skilled Services : Professional Skilled Services No qualifying data available. Services and Community Resources : Physical Therapy Needs Assistance with Transportation : No Discharge Options Discussed with Patient : DME, Outpatient services Patient Discharge Goal : Home ARMIN TABOR RN-Book Shelver - 12/08/2020 16:14 EDT Narrative Note Historical Narrative Note : 65yo female pt s/p RTKA. Met with pt and spouse at bedside to discuss DCP. Pt needs FRW and BSC and has no DME provider preference. Obtained them from [employer] and they have been delivered. Pt chose OPT at [facility]. Referral sent and confirmed 1st appt for 12/09 @ 1100. No other CM needs noted. ARMIN TABOR RN-Book Shelver - 12/08/20 16:24:10 Narrative Note : 65yo female pt s/p RTKA. Met with pt and spouse at bedside to discuss DCP. Pt needs FRW and BSC and has no DME provider preference. Obtained them from [employer] and they have been delivered. Pt chose OPT at [facility] during [employer]. Referral sent and confirmed 1st appt for 12/09 @ 1100. No other CM needs noted. ARMIN TABOR RN-Book Shelver - 12/08/2020 16:36 EDT documented in this encounter Plan of Treatment Not on file documented as of this encounter Visit Diagnoses Not on filedocumented in this encounter
--- OUTSIDE RECORDS SUMMARY | 2024-08-17 08:12 | XMS_ITS | Encounter Summary ---
Author Organization [employer] ([place], [place], [place], [place]) Address [address] [place] [address] Care Team Providers Care Competitive Shopper Name Role Phone Unavailable Primary Care Provider Unavailabl e Encounter Details Date Type Department Care Team (Late st Contact Info) Description 12/08/2020 Transcribed Document [facility] Radiology [address] [place] [address] Marley Quinteros MD [facility] [place] [address] Social History Tobacco Use Types Packs/Day Years Used Date Smoking Tobacco: Never Assessed Comments Unknown Sex and Gender Information Value Date Recorded Sex Assigned at Female 08/10/2021 7:43 PM CDT Legal Sex Female 7:43 PM CDT Gender Identity Female 08/10/2021 7:43 PM CDT Sexual Orientation Not on file documented as of this encounter Miscellaneous Notes * Cerner Conversion Note - Marley Quinteros MD - 12/08/2020 8:13 AM EDT Patient: LESLIE MARTÍNEZ Age: 65 Years Sex: Female : 1955 Admit Date 12/07/2020 05:53 Discharge Date 12-08-2020 Primary Care Provider RAYMUNDO SNYDER (REF)MD-[facility] Discharge Diagnosis Right total knee arthoplasty Procedures SN - Proc - Procedure: Knee Total Joint Replacement (12/07/20 08:11:25) Reason for Hospitalization The patient has end-stage osteoarthritis of the above-mentioned knee. They have otherwise failed conservative measures and now present for total knee arthroplasty. The risks benefits and alternatives have been explained to the patient in detail and they have voiced their agreement. [1] Hospital Course Patient was taken to the operating room on date of admission where they underwent the aforementioned procedure without complication. They were then transferred to the floor for postoperative care including PT & OT, consultation of hospitalist for medical care, and discharge planning by nurse navigator/case management. Vital Signs T: 36.4 ??C TMIN: 36.2 ??C TMAX: 36.8 ??C HR: 75(Monitored) RR: 16 BP: 95/58 SpO2: 95% HT: 160.02 cm WT: 104.09 kg BMI: 40.6 Oxygen Settings (Last) Oxygen Therapy Mode: Room air (12/07/20 20:31:00) Oxygen Flow Rate: 8 Liter/Min (12/07/20 11:47:00) Physical Exam The dressing is clean dry secure. The operative extremity is neurovascularly intact with the exception of that which is attributed to peripheral nerve block. Compartments are soft. Discharge Disposition Home with [facility] Discharge Follow Up GREG WHITTAKER PA-ORJesscia - 10:15 AM Discharge Medications (19) Active aspirin 81 mg oral delayed release tablet 81 mg = 1 Tab, Oral, BID biotin 5000 mcg oral capsule 1 Tab, Oral, Daily bisoprolol 5 mg oral tablet 2.5 mg = 0.5 Tab, Oral, Daily cefadroxil 500 mg oral capsule 500 mg = 1 Cap, Oral, Q12H Colace 100 mg oral capsule 100 mg = 1 Cap, PRN, Oral, BID CoQ10 1 Tab, Oral, Daily Edarbyclor 40 mg-25 mg oral tablet 1 Tab, Oral, Daily famotidine 20 mg oral tablet 20 mg = 1 Tab, Oral, BID fexofenadine 180 mg oral tablet 180 mg = 1 Tab, Oral, Daily levothyroxine 137 mcg (0.137 mg) oral tablet 137 mcg = 1 Tab, Oral, Daily Lipitor 80 mg oral tablet 80 mg = 1 Tab, Oral, Daily Lyrica 75 mg oral capsule 75 mg = 1 Cap, Oral, Daily meloxicam 15 mg oral tablet 15 mg = 1 Tab, Oral, Daily metformin 500 mg oral tablet 500 mg = 1 Tab, Oral, BID Nitromist 0.4 mg sublingual spray 0.4 mg = 1 [place], SubLINgual, Q5Min Percocet 5/325 oral tablet 1 Tab, PRN, Oral, Q4H Probiotic Formula oral capsule 2 Cap, Oral, Daily Vitamin B12 1000 mcg oral tablet 1,000 mcg = 1 Tab, Oral, Daily Zofran 4 mg oral tablet 4 mg = 1 Tab, Oral, Q8H Code Status Start: 12/07/20 12:07:00 EDT, Full Code, Continuous Order Condition on Discharge Stable Consulting Physicians KAMILLA KNOWLES MD-ANS WILSON, MATTHEW L, MD-ANS WORLEY, ECTOR MUNOZ, NATHAN Don MD-INT (Please notify Dr. Oneal of consult in Pre-Op holding area.) - medical mgt Current Diet Order Diet, Adult - Ordered -- Start: 12/07/20 12:07:00 EDT, Regular Diet, Isolation: Standard Precautions Patient Discharge Summary Orders Patient is weightbearing as tolerated. Patient should transition from a walker to a cane at the discretion of physical therapy. However the patient should minimize ambulation, and focus on copious ice and elevation to reduce swelling. The range of motion goal for first follow-up should be a minimum of 0-90??. Bilateral knee-high CICI hose should be worn 21+ hours per day for 3 weeks for DVT prophylaxis. Chemoprophylaxis for DVT (see medlist)times [address] Dressings remain in place for 7-10 days. Cover incision with plastic wrap and keep dry during shower until follow up appointment. Dressings then can be removed and incision left open to air. Any wound drainage should be reported to the orthopedic office. Continuous use of gel pack cryotherapy as needed for pain and swelling. Pending Labs In Process SENDOUT REPORT [id number], [id number], RT - Routine, 12/07/20 9:23:00 EDT Pathology Tissue Request [id number], [id number], 12/07/20 9:23:00 EDT, Collected, RT - Routine, 12/07/20 12:24:14 EDT, MARINA SANTILLAN, [employer], Specimen Type: AP Specimen, Specimen Desc: RIGHT KNEE BONE AND TISSUE In Transit Path Tissue Request, Sendout Specimen Type: AP Specimen, Routine collect, 12/07/20 9:23:00 EDT, 1-Time, Collected, Stop: 12/07/20 9:23:00 EDT, Nurse Collect, Specimen Desc: RIGHT KNEE BONE AND TISSUE, Print Label By Order Location Ordered CBC no Diff (Hemogram) Specimen Type: Blood, AM Draw collect, 12/08/20 4:00:00 EDT, Daily, For: 3 Day(s), Stop: 12/10/20 4:00:00 EDT, Nurse Collect BMP Basic Metabolic Panel Specimen Type: Blood, AM Draw collect, 12/08/20 4:00:00 EDT, Daily, Lab Collect Time Spent on Discharge 20 minutes Patient was seen and examed by Dr. Quinteros with myself, Moisés Palmer PA-C, present in room. All medical decision making was discussed with patient. [1] Right TKA op Note; MARLEY QUINTEROS MD-ORT 12/07/2020 11:24 EDT documented in this encounter Plan of Treatment Not on file documented as of this encounter Visit Diagnoses Not on filedocumented in this encounter
--- OUTSIDE RECORDS SUMMARY | 2024-08-17 08:12 | XMS_ITS | Continuity of Care Document ---
Author Organization [facility] [place] [address] Address [address] [place] [address] Care Team Providers Care Medical Concierge Name Role Phone KISHA AREVALO Medical Oncologist [...] tablet 2024 025 petra [id number], [address] [place], [address], 17:59:27 Patient TargetsNo targets recorded. Patient Instructions Encounter Date Encounter Id Patient Instructions Last Modified By Organization Details Last Modified Time 06/20/2024 [id number] 1. Discussed Shalonda and cardiac medications which [...] through the parotid glands and from the [place]field's ducts from the submandibular glands. This may [...] 22 Total knee arthroplasty completed Fco Cristina [facility] 04/29/2021 10:43:48 01/19/20 21 Synvisc One Injection completed AZALIA FARRIS PA-C [address] [place], [address], [facility] 01/18/2021 14:56:33 12/08/19 21 Total knee arthroplasty completed Fco Cristina [facility] 12/30/2020 10:09:09 09/24/19 20 Synvisc One Injection completed Jaclyn Boucher [facility] 09/24/2019 10:59:59 11/20/19 19 Synvisc One Injection completed THOM HILL MD [address] [place], [address], [facility] 11/19/2018 13:40:58 03/08/19 19 Injection Joint/Bursa, Major completed Kisha Max [facility] 03/08/2018 12:16:04 06/16/19 18 Suture/Staple removal completed Ar DAVISON PA-C [address] [place], [address], [facility] 06/15/2017 14:26:48 Cardiac Catheterization Technician Surgery completed Olivia Rothman [facility] 05/23/2017 14:42:12 Imaging Results None recorded. Procedure Notes None recorded. Medical Equipment None Reported. Allergies Allergen ID Allergen Name Allergen Category Reaction Reaction Severity Criticality Documentation Date Start Date Code Code System Note Provider Name and Address Organization Details Recorded Time 866626 tetracycl ine medicatio n rash Not available Not available 05/23/2017 23856 RxNorm Olivia Rothman [facility] 8 14:39:03 Medications Name Sig Start Date [...] completed Not Available Not Available Not Available [place] 10 mg-325 mg tablet Take 1 tablet [...] Address Organization Details Last Updated DateTime 5 47754.5 4 g 38.7 kg/m2 160.02 cm 97.5 [degF] 75 /min 128/75 mm[Hg] Carmenza Pankaj [facility] 5 13:03:24 Social History Question Answer Notes LastModified by Organizat ion Details LastModified Time Tobacco Smoking Status Never [facility]oker [facility] 05/23/2017 14:42:19 What Was The Date Of Your Most Recent Tobacco Screening? 03/08/2018 Information n ot available 04/02/2019 Sex: Female Functional Status Question Answer Note LastModified by Organizat [employer] Details LastModified Time What is your level of alcohol consumption? Occasional Information not available 06/20/2024 Mental Status None recorded. Family History Relationship Description Onset Age of this Age Resolved Age Notes LastModified by Organization Details LastModified Time Father Family history of Angina [email or web address] Not available 2024 12:46:22 Father Malignant neoplastic disease Colon [email or web address] Not available 06/20 12:55:37 Father Hearing loss [email or web address] Not purvi ilable 06/20/2024 12:55:48 Father Heart disease Not available 06/20 12:56:09 Father Essential hypertension [email or web address] Not available 12:56:28 Mother Heart disease [email or web address] Not available 06/20 12:56:09 Mother Essential hypertension Not available 12:56:28 Mother Cerebrovascu lar accident Not available 12:56:36 Mother Diabetes mellitus Not available 06/20 12:56:44 Medical History Condition Response Coronary Artery Disease N Gout N Anxiety/Depression N Other N Thyroid Disease Y Kidney Stones N Hyperthyroidism N Heart Arrhythmia Y Emphysema N Hernia N Esophagus/swallowing troubles Y Glaucoma N Depression N COPD N Lung Disease N Hypothyroidism Y Pneumonia N Anesthesia Complications N Gastrointestinal Disease [...] SNOMED-CT Code Diagnosis ICD10 Code Diagnosis Note [id number] MD LONNIE STAPLES [address] [place] [address] 06/20/2024 12:43:08 06/20/2024 13:52:51 Xerostomia 08494155 K11.7 -perceptio n of dry mouth-sali va excretes generously from palate and parotid/reid bmandibula r glands Supraventr icular tachycardia 0923010 I47.10 -hx of-no recurrence since cardiovers ion Flushing 946519227 R23.2 History of malignant neoplasm of stomach 772950460 Z85.028 Nausea and vomiting 1693 2000 R11.2 -with eating Slurred speech 894375643 R47.81 Enlargement of tongue 25 984317 Q38.2 Oropharyng eal dysphagia 93915771 R13.12 Dysarthria 6462760 R47.1 -to consider Health Concerns Section Related Observation LastModified by Organization Detai ls LastModified Time None Recorded Concern Status LastModified by Organization Details LastModified Time None Recorded Payers Encounter Date Sequence Insurance Name Policy Number Policy Rivas Covered Member ID Rivas Member ID Guarantor Name 06/20/2024 1 [employer] (MEDICARE) Leslie Greer Midden [id number] 1 Leslie Greer Midden 06/20/2024 2 [employer] (MEDICARE SUPPLEMENT) Leslie Greer Midden [id number] Leslie Greer Midden Notes Date Note Type [...] still works. DAHIANA CANSECO MD [address], [place], [address], [facility] 06/21/2024 08:27:59 OBGyn Episode No OBEpisode recorded.
--- OUTSIDE RECORDS SUMMARY | 2024-08-17 08:12 | XMS_ITS | Encounter Summary ---
Author Organization [employer] ([place], [place], [place], [place]) Address [address] [place] [address] Care Team Providers Care Lead Consultant Name Role Phone Unavailable Primary Care Provider Unavailabl e Encounter Details Date Type Department Care Team (Late st Contact Info) Description 12/08/2020 Transcribed Document [facility] Family Medicine [facility] [place] [address] ProviderJason MD [address] [place] [address] Social History Tobacco Use Types [...] Conversion Note - Jason ProviderMD - 12/08/2020 5:52 PM CDT Nursing Discharge Summary Entered On: 12/08/2020 17:52 EDT Performed On: 12/08/2020 17:52 EDT by Genesis Henson Rn Discharge Documentation Discharge Date/Time : 12/08/2020 17:30 EDT Patient Disposition, General : Discharge Discharge To : Home with ambulatory/outpatient follow-up Mode Of Departure, General Discharge : Wheelchair Accompanied By, Discharge : Spouse IV Discontinued : Yes Medications Given to Patient : Other: meds to beds Discharge Instructions Reviewed With, Opportunity For Questions Given : Other: joint assistant womens volleyball coach Patient Education Completed : Yes Teaching Method : Explanation, Printed materials Teaching Evaluation : Verbalizes understanding Education Comment : [place] Hamm 100% Genesis Henson Rn - 12/08/2020 17:52 EDT Electronically signed by Randy Mckinneyh Conversion Certified Bench Jeweler Technician Cerner at 06/03/2022 8:56 AM CDT documented in this encounter Plan of Treatment Not on file documented as of this encounter Visit Diagnoses Not on filedocumented in this encounter
--- OUTSIDE RECORDS SUMMARY | 2024-08-17 08:12 | XMS_ITS | Encounter Summary ---
Author Organization [employer] ([place], [place], [place], [place]) Address [address] [place] [address] Care Team Providers Care Frame Runner Name Role Phone Unavailable Primary Care Provider Unavailabl e Encounter Details Date Type Department Care Team (Late st Contact Info) Description 11/13/2020 Transcribed Document [facility] [place] [address] [place] [address] ProviderJason MD [address] [place], [place] [id number] Social History Tobacco Use Types Packs/Day Years Used Date Smoking Tobacco: Never Assessed Comments Unknown Sex and Gender Information Value Date Recorded Sex Assigned at Female 08/10/2021 7:43 PM CDT Legal Sex Female 7:43 PM CDT Gender Identity Female 08/10/2021 7:43 PM CDT Sexual Orientation Not on file documented as of this encounter Miscellaneous Notes * Cerner Conversion Note - Jason ProviderMD - 11/13/2020 9:41 AM CDT Total Joints Assessment Entered On: 04/21/2021 9:42 EST Performed On: 11/13/2020 9:41 EDT by OCTAVIO OCASIO OTR/Alejandro PANG JR. Knee Survey 1. How severe is your knee stiffness after first wakening in the morning? : Severe 2. Twisting/pivoting on your knee : Extreme 3. Straightening knee fully : Extreme 4. Going up or down stairs : Severe 5. Standing upright : Severe 6. Rising from sitting : Severe 7. Bending to floor/pick out hand an object : Moderate KOOS JR Raw Score (ref) : 22 OCTAVIO OCASIO OTR/Alejandro - 04/21/2021 9:41 EST PROMIS Global Health Scale In general, would you say your health is: : Good In general, would you say your quality of life is: : Good In general, how would you rate your physical health? : Good In general, how would you rate your mental health, including your mood and your ability to think? : Very good In general, how would you rate your satisfaction with your social activities and relationships? : Very good In general, please rate how well you carry out your usual social activities and roles. (This includes activities at home, at work and in your community, and responsibilities as a parent, child, spouse, employee, friend, etc.) : Good To what extent are you able to carry out your everyday physical activities such as walking, climbing stairs, carrying groceries, or moving a chair? : Moderately How often have you been bothered by emotional problems such as feeling anxious, depressed or irritable? : Rarely How would you rate your fatigue on average? : Mild How would you rate your pain on average? : 5 Global Physical Health Score (ref) : 13 Global Mental Health Score (ref) : 15 OCTAVIO OCASIO OTR/Alejandro - 04/21/2021 9:41 EST documented in this encounter Plan of Treatment Not on file documented as of this encounter Visit Diagnoses Not on filedocumented in this encounter
--- OUTSIDE RECORDS SUMMARY | 2024-08-17 08:12 | XMS_ITS | Encounter Summary ---
Author Organization [employer] ([place], [place], [place], [place]) Address [address] [place] [address] Care Team Providers Care Weed Cutter Name Role Phone Unavailable Primary Care Provider Unavailabl e Encounter Details Date Type Department Care Team (Late st Contact Info) Description 11/13/2020 Transcribed Document [facility] [place] [address] [place] [address] ProviderJason MD [address] [place], [place] [id number] Social History Tobacco Use Types Packs/Day Years [...] Conversion Note - Jason ProviderMD - 11/13/2020 1:43 PM CDT Total Joints Assessment Entered On: 04/27/2021 13:44 EDT Performed On: 11/13/2020 13:43 EDT by OCTAVIO OCASIO OTR/Alejandro PANG JR. Knee Survey 1. How severe is your knee stiffness after first wakening in the morning? : Extreme 2. Twisting/pivoting on your knee : Severe 3. Straightening knee fully : Moderate 4. Going up or down stairs : Extreme 5. Standing upright : Moderate 6. Rising from sitting : Moderate 7. Bending to floor/roller picker an object : None BIRD MICHAELS Raw Score (ref) : 17 OCTAVIO OCASIO OTR/Alejandro - 04/27/2021 13:43 EDT PROMIS Global Health Scale In general, would you say your health is: : Very good In general, would you say your quality of life is: : Very good In general, how would [...] parent, child, spouse, employee, friend, etc.) : Excellent To what extent are you able to carry out your everyday physical activities such as walking, climbing stairs, carrying groceries, or moving a chair? : Moderately How often have you been bothered by emotional problems such as feeling anxious, depressed or irritable? : Sometimes How would you rate your fatigue on average? : Moderate How would you rate your pain on average? : 3 Global Physical Health Score (ref) : 13 Global Mental Health Score (ref) : 15 COTAVIO OCASIO OTR/Alejandro - 04/27/2021 13:43 EDT documented in this encounter Plan of Treatment Not on file documented as of this encounter Visit Diagnoses Not on filedocumented in this encounter
--- OUTSIDE RECORDS SUMMARY | 2024-08-17 08:12 | XMS_ITS | Encounter Summary ---
Author Organization [employer] ([place], [place], [place], [place]) Address [address] [place] [address] Care Team Providers Care Dental Office Receptionist Name Role Phone Unavailable Primary Care Provider Unavailabl e Encounter Details Date Type Department Care Team (Late st Contact Info) Description 12/07/2020 Transcribed Document [facility] [place] [address] [place] [address] ProviderJason MD [address], [place] [phone] Social History Tobacco Use Types Packs/Day Years Used Date Smoking Tobacco: Never Assessed Comments Unknown Sex and Gender Information Value Date Recorded Sex Assigned at Female 08/10/2021 7:43 PM CDT Legal Sex Female 7:43 PM CDT Gender Identity Female 08/10/2021 7:43 PM CDT Sexual Orientation Not on file documented as of this encounter Miscellaneous Notes * Cerner Conversion Note - Historical ProviderMD - 12/07/2020 7:53 AM CDT Consult Phone Call Documentation Entered On: 12/08/2020 8:11 EDT Performed On: 12/07/2020 7:53 EDT by Dano Max PATIENT DEPUTY INSURANCE COMMISSIONER Phone Call for Consults Consult Phone Call/Page Attempt : Other: Completed 12/07 Dano Max PATIENT DEPUTY INSURANCE COMMISSIONER - 12/08/2020 8:11 EDT Electronically signed by Ander Mckinney Conversion Low Emission Automobile Designer Cerner at 06/03/2022 8:45 AM CDT documented in this encounter Plan of Treatment Not on file documented as of this encounter Visit Diagnoses Not on filedocumented in this encounter
--- OUTSIDE RECORDS SUMMARY | 2024-08-17 08:12 | XMS_ITS | Encounter Summary ---
Author Organization [employer] ([place], [place], [place]) Address [address] [place] [address] Care Team Providers Care Auto Radiator Specialist Name Role Phone Unavailable Primary Care Provider Unavailabl e Encounter Details Date Type Department Care Team (Late st Contact Info) Description 12/08/2020 Transcribed Document [facility] [place] [address] [place] [address] ProviderJason MD [address] [place] [address] Social History Tobacco Use Types [...] Cerner Conversion Note - Historical ProviderMD - 12/08/2020 12:34 PM CDT UM Authorization Entered On: 12/08/2020 12:34 EDT Performed On: 12/08/2020 12:34 EDT by Damaris Morse Rn-Utilization Review Primary Insurance Authorization Authorization and Policy Numbers : Insurance 1 Health Plan: ANTHEM HMOPPO Policy Number: [id number] Authorization Number: NPR Insurance 2 Health Plan: MEDICARE Policy Number: [id number] Authorization Number: Insurance Primary Name : Lux [id number] Authorization Status-Primary : No precert required Authorized Service Begin Date-Primary : 12/07/2020 EDT Observation Authorization Nbr-Primary : NPR per [facility] notes Historical Authorization Comments-Primary : Comment 1: pt is iliana for OP total knee replacement on 12/07/20 [place] NPR per [facility]AR notes (ROSSY ALEX, Race Starter 12/03/2020 14:49) Damaris Morse Rn-Utilization Review - 12/08/2020 12:34 EDT Electronically signed by Faye [facility] Conversion Staff Physical Therapy Assistant Cerner at 06/03/2022 8:45 AM CDT documented in this encounter Plan of Treatment Not on file documented as of this encounter Visit Diagnoses Not on filedocumented in this encounter
--- OUTSIDE RECORDS SUMMARY | 2024-08-17 08:12 | XMS_ITS | Encounter Summary ---
Author Organization [employer] ([place], [place], [place], [place]) Address [address] [place] [address] Care Team Providers Care Steam Table Worker Name Role Phone Unavailable Primary Care Provider Unavailabl e Encounter Details Date Type Department Care Team (Late st Contact Info) Description 12/08/2020 Transcribed Document [facility] [place] [facility] [place] [address] ProviderJason MD [address] [place] [id number] Social History Tobacco Use Types Packs/Day Years [...] Conversion Note - Historical ProviderMD - 12/08/2020 11:41 AM CDT Discharge Summary, PT Entered On: 12/08/2020 11:41 EDT Performed On: 12/08/2020 11:41 EDT by KISHA RAYGOZA PT Discharge Summary Discharge Summary Provider Notified : Nursing, Referring provider Reason for Discharge : Discharged from hospital, All goals met Discharge Summary Comment, PT : Pt has currently met 3/3 goals [...] TKA rehab. KISHA RAYGOZA, PT - 12/08/2020 11:41 EDT Electronically signed by Ander Mckinney Conversion Psychologist [facility] at 06/03/2022 8:54 AM CDT documented in this encounter Plan of Treatment Not on file documented as of this encounter Visit Diagnoses Not on filedocumented in this encounter
--- OUTSIDE RECORDS SUMMARY | 2024-08-17 08:12 | XMS_ITS | Encounter Summary ---
Author Organization [employer] ([place], [place], [place], [place]) Address [address] [place] [address] Care Team Providers Care Mixing Machine Attendant Name Role Phone Unavailable Primary Care Provider Unavailabl e Encounter Details Date Type Department Care Team (Late st Contact Info) Description 12/08/2020 Transcribed Document [facility] [place] [address] [place] [address] ProviderJason MD [address], [place] [phone] Social History Tobacco Use Types Packs/Day Years [...] Conversion Note - Historical ProviderMD - 12/08/2020 3:51 PM CDT Stroke/Warfarin Instructions Entered On: 12/08/2020 15:51 EDT Performed On: 12/08/2020 15:51 EDT by Inna Brugos Rn Stroke/Warfarin Instructions Stroke/TIA Discharge Ins : N/A Warfarin Discharge Ins : N/A Inna Burgos Rn - 12/08/2020 15:51 EDT documented in this encounter Plan of Treatment Not on file documented as of this encounter Visit Diagnoses Not on filedocumented in this encounter
--- OUTSIDE RECORDS SUMMARY | 2024-08-17 08:12 | XMS_ITS | Encounter Summary ---
Author Organization [employer] ([place], [place], [place], [place]) Address [address] [place] [address] Care Team Providers Care Private Advisor Name Role Phone Unavailable Primary Care Provider Unavailabl e Encounter Details Date Type Department Care Team (Late st Contact Info) Description 12/03/2020 Transcribed Document [facility] [place] Family [place] [address] [place] [address] ProviderJason MD [address], [place] [phone] Social History Tobacco Use Types Packs/Day Years Used Date Smoking Tobacco: Never Assessed Comments Unknown Sex and Gender Information Value Date Recorded Sex Assigned at Female 08/10/2021 7:43 PM CDT Legal Sex Female 7:43 PM CDT Gender Identity Female 08/10/2021 7:43 PM CDT Sexual Orientation Not on file documented as of this encounter Miscellaneous Notes * Cerner Conversion Note - Jason ProviderMD - 12/03/2020 2:49 PM CDT UM Authorization Entered On: 12/03/2020 14:50 EDT Performed On: 12/03/2020 14:49 EDT by ROSSY ALEX, Rim Roller Operator Primary Insurance Authorization Authorization and Policy Numbers : Insurance 1 Health Plan: ANTHEM HMOPPO Policy Number: [id number] Authorization Number: Insurance 2 Health Plan: MEDICARE Policy Number: [id number] Authorization Number: Insurance Primary Name : Lux [id number] Authorization Status-Primary : No precert required Authorized Service Begin Date-Primary : 12/07/2020 EDT Observation Authorization Nbr-Primary : NPR per [facility] notes Authorization Comments-Primary : pt is [place] for OP total knee replacement on 12/07/20 [place] NPR per STAR notes Historical Authorization Comments-Primary : No Authorization Comments Found ROSSY ALEX, Rim Roller Operator - 12/03/2020 14:49 EDT documented in this encounter Plan of Treatment Not on file documented as of this encounter Visit Diagnoses Not on filedocumented in this encounter
--- OUTSIDE RECORDS SUMMARY | 2024-08-17 08:12 | XMS_ITS | Encounter Summary ---
Author Organization [employer] ([place], [place], [place], [place]) Address [address] [place] [address] Care Team Providers Care Revenue Agent Name Role Phone Unavailable Primary Care Provider Unavailabl e Encounter Details Date Type Department Care Team (Late st Contact Info) Description 12/07/2020 Transcribed Document [facility] [place] [facility] [place] [address] ProviderJason MD [address] [place] [address] Social History Tobacco Use Types [...] Conversion Note - Jason ProviderMD - 12/07/2020 12:07 PM CDT Evaluation, Physical Therapy Entered On: 12/07/2020 14:46 EDT Performed On: 12/07/2020 14:42 EDT by KISHA RAYGOZA, PT General Information, PT Visit Type, PT : Initial evaluation Patient Orders : Order Date Order Ordering [...] Treatment Instructions Ordered By: MARLEY CLARK MD-ORT Active Diagnoses : No Qualifying Diagnoses Therapy Diagnosis, PT : Aftercare following R TKA Onset of Problem, PT : 12/07/2020 EDT Admission Date : 12/07/2020 05:53 Co-treated by, PT : Occupational Therapist Personal Devices : Personal Devices No Devices Recorded Assistive Devices : Assistive Devices No Devices Recorded KISHA RAYGOZA PT - 12/07/2020 14:42 EDT General Status Patient Received Status : Supine in bed Treatment Start Time : 12/07/2020 14:11 EDT Patient Left Status : Up in chair, RN/PCT informed, Communication board completed, All needs met and within reach, Other: SCd's, ICE, bone foam RN/PCT Informed Comment : RN herman and pt consent Treatment End Time : 12/07/2020 14:23 EDT Treatment Time : 12 Minute(s) KISHA RAYGOZA PT - 12/07/2020 14:42 EDT History and Environment Living Situation, Therapy : Home Patient Lives With : Spouse Persons Assisting Patient at Home : Spouse Professional Skilled Services : None Persons Providing Information : Patient Home Equipment Therapy, PT : None Home Setup : Two story Bedroom Location : Main level Bathroom #1 Location : Main level Stairs : Yes Stair Location(s) : Outside Outside Stairs, Number of Steps : 6 Railing Outside : Yes Outside Railing Position : Left, going up KISHA RAYGOZA, PT - 12/07/2020 14:42 EDT Prior Level of Function PT GRID Prior LOF Ambulation, Household : Independent Prior LOF Ambulation, Community : Independent Prior LOF Bed Mobility : Independent Prior LOF Toileting : Independent Prior LOF Transfer : Independent KISHA RAYGOZA PT - 12/07/2020 14:42 EDT Upper Extremity Right UE Active ROM : WFL Right UE Strength : WFL Left UE Active ROM : WFL Left UE Strength : WFL KISHA RAYGOZA, PT - 12/07/2020 14:42 EDT Lower Extremity RLE Active ROM : Impaired Right LE Strength : Impaired KISHA RAYGOZA, PT - 12/07/2020 14:42 EDT RLE ROM Grid Knee Flexion (0-140) Knee Extension (0-0) Active : 97 0 KISHA RAYGOZA, PT - 12/07/2020 14:42 EDT KISHA RAYGOZA, PT - 12/07/2020 14:42 EDT LLE Active ROM : WFL Left LE Strength : WFL KISHA RAYGOZA, PT - 12/07/2020 14:42 EDT Functional Mobility Mobility Grid Supine to Sit : Supervision/set-up Sit to Stand : Supervision/set-up Bed to Chair : Supervision/set-up Stand to Sit : Supervision/set-up KISHA RAYGOZA, PT - 12/07/2020 14:42 EDT Sit to Stand Device : Belt, gait, Walker, front wheel Bed to Chair Device : Belt, gait, Walker, front wheel KISHA RAYGOZA, PT - 12/07/2020 14:42 EDT Gait Training/Assessment, PT Weight Bearing Status : As tolerated Gait Assistance Level : Assist, minimal Walking Distance : CGA 15ft x 2 to bathroom and back with RWx, no LOB, good use of BUE s on RWx for support. Ambulatory Devices : Gait belt, Walker, front wheel KISHA RAYGOZA, PT - 12/07/2020 14:42 EDT Neuromuscular Reeducation, PT Balance Comment : SBA static sitting, SBA static standing with RWx KISHA RAYGOZA, PT - 12/07/2020 14:42 EDT Neurological/Sensory Overall Sensory Response : Intact KISHA RAYGOZA, PT - 12/07/2020 14:42 EDT Activity Tolerance, PT Activity Comment : No acute complaints KISHA RAYGOZA PT - 12/07/2020 14:42 EDT Cognition Assessment, PT Orientation : Oriented x 4 Attention Assessment : Present KISHA RAYGOZA PT - 12/07/2020 14:42 EDT Edu Topics Physical Therapy Education Grid Bed Mobility Training : Returns demonstration Gait Training : Needs reinforcement Role of Physical Therapy : Verbalizes understanding Safety : Verbalizes understanding Transfer Training : Needs reinforcement Use of Assistive Device : Needs reinforcement KISHA RAYGOZA, PT - 12/07/2020 14:42 EDT Indication Assesessment, PT Physical Therapy Indicated : Yes PT Problem List : Impaired, endurance tolerance, Impaired, gait, Impaired, joint mobility, Impaired, stair mobility, Impaired, standing balance, Impaired, strength, Impaired, transfers Potential Barriers To Therapy : None evident Rehabilitation Potential : Good KISHA RAYGOZA, PT - 12/07/2020 14:42 EDT Plan of Care, PT PT Tx Plan/Goals Established w Patient : Yes PT Frequency Rehab : Daily, twice (bid) PT Duration Rehab : Fourteen days PT Treatments Planned : Gait training, Safety education, Stair training, Therapeutic exercises, Transfer training KISHA RAYGOZA, PT - 12/07/2020 14:42 EDT Correction Goals Mobility/Bed Mobility LTG PT Grid Goal #1 Activity : Sit to stand Assist : Supervision or set-up Equipment : Walker, front wheel Date to Meet : 12/21/2020 EST Goal Status : Intial Goal KISHA RAYGOZA, PT - 12/07/2020 14:42 EDT Ambulation LTG Grid Goal #1 Device : Walker, front wheel Distance : 100ft Assist : Supervision or set-up Date to Meet : 12/21/2020 EST Goal Status : Intial Goal KISHA RAYGOZA PT - 12/07/2020 14:42 EDT Stairs LTG Grid Goal #1 Device : None Number of Steps : 5 Handrail(s) : One handrail Assist : Assist, minimal Date to Meet : 12/21/2020 EST Goal Status : Intial Goal KISHA RAYGOZA, PT - 12/07/2020 14:42 EDT Treatment Note Subjective Comment : Pt agreeable to PT eval, denies pain at rest. Patient's Response to Treatment : Pt tolerated all aspects of initial mobility well with no acute complaints. Following gait activities, pt was educated on progressive use of bone foam to improve extension and was placed on Bone Foam at end of session. No knee buckling during initial mobility due to good use of BUE's on RWx. Educated to use call pierre for assistance and not to perform mobility without hospital staff present. Additional Objective Information : R knee ROM 0-97 degrees SBA sup-sit CGA sit-stand with RWx CGA gait x 30ft with RWx Assessment : Pt tolerates initial mobility well with no acute complaints. Pt educated about use of Bone Foam for improved extension ROM and tolerates initial ROM and gait tasks well. Pt will continue to benefit from physical therapy in the acute care setting to maximize strength and ROM in the surgical extremity, and for functional training and safety education to minimize functional deficits at discharge and promote return to functional independence. Plan for Treatment : BID KISHA RAYGOZA, PT - 12/07/2020 14:42 EDT Pain Assessment Pain Scaled Used : 0-10 Pain scale Pain Score Pre-Intervention : 0 Pain Score Post-Intervention. : 0 KISHA RAYGOZA, PT - 12/07/2020 14:42 EDT Image 1 - Images currently included in the form version of this document have not been included in the text rendition version of the form. Anticipated Discharge Needs, OT/PT Anticipated Discharge to : Outpatient rehabilitation Anticipated Home Equipment : Geovany Walker Recommend Continued Therapy at Discharge : Yes KIHSA RAYGOZA, PT - 12/07/2020 14:[address] [facility] PT Charges PT Eval Low Complexity : 1 KISHA RAYGOZA, PT - 12/07/2020 14:42 EDT documented in this encounter Plan of Treatment Not on file documented as of this encounter Visit Diagnoses Not on filedocumented in this encounter
--- OUTSIDE RECORDS SUMMARY | 2024-08-17 08:12 | XMS_ITS | Encounter Summary ---
Author Organization [employer] ([place], [place], [place], [place]) Address [address] [place] [address] Care Team Providers Care Preforms Laminator Name Role Phone Unavailable Primary Care Provider Unavailabl e Encounter Details Date Type Department Care Team (Late st Contact Info) Description 12/07/2020 Transcribed Document [facility] [place] [facility] [place] [address] ProviderJason MD [address] [place] [address] Social History Tobacco Use Types [...] Conversion Note - Jason ProviderMD - 12/07/2020 3:36 PM CDT Orthopedic Nurse Navigator Entered On: 12/07/2020 15:38 EDT Performed On: 12/07/2020 15:36 EDT by America Burroughs RN-Navigator Orthopedic Nurse Navigator Assessment Attended Joint Academy : Yes Joint AcademyType : Online Joint Academy Date : 11/12/2020 EDT Joint Tempering Kiln Tender Name : , Moisés Type of Surgery : Total Knee Replacement, Right Anticipated Discharge Plan : Outpatient PT Anticipated Discharge Plan Comment : Pt plans to d/c home tomorrow with the help of her and son. She would like OPT immediately at [facility] OPT, an appt was made for 12/09 at 1100. America Burroughs RN-Navigator - 12/07/2020 15:36 EDT Teaching/Learning Assessment Barriers To Learning : None evident Individuals Taught : Patient Readiness to Learn : Cooperative Readiness to Learn : Demonstration, Explanation, Printed materials, Video/Educational TV Education Comment : [place] Hamm 100% America Burroughs RN-Navigator - 12/07/2020 15:36 EDT Education Topics, Orthopedic Pre-Op Ortho Pre-Op Education Grid Ed-Assistive Devices : Verbalizes understanding DVT Prophylaxis : Verbalizes understanding Family Instructions : Verbalizes understanding Herbs/Supplement Instructions : Verbalizes understanding Laboratory Studies : Verbalizes understanding Medication Instructions : Verbalizes understanding NPO : Verbalizes understanding Ed-Occupational Therapy : Verbalizes understanding Pain Management : Verbalizes understanding Physical Prep : Verbalizes understanding Physical Therapy : Verbalizes understanding Plan of Care : Verbalizes understanding Positioning : Verbalizes understanding Post-op Activity/Exercise Regimen : Verbalizes understanding Postoperative Home Needs : Verbalizes understanding Post-operative Monitoring : Verbalizes understanding Post-Op Orthopedic Equipment : Verbalizes understanding Procedure Information : Verbalizes understanding Respiratory Care : Verbalizes understanding Surgical Site : Verbalizes understanding Tubes/Drains/IV's : Verbalizes understanding Turn/Cough/Deep Breathe : Verbalizes understanding (Comment: verbalizes understanding of incentive spirometry [America Burroughs RN-Navigator - 12/07/2020 15:36 EDT] ) Weight Bearing : Verbalizes understanding Ed-Orthopedic Pre-Op, Other : Verbalizes understanding America Burroughs RN-Navigator - 12/07/2020 15:36 EDT documented in this encounter Plan of Treatment Not on file documented as of this encounter Visit Diagnoses Not on filedocumented in this encounter
--- OUTSIDE RECORDS SUMMARY | 2024-08-17 08:12 | XMS_ITS | Encounter Summary ---
Author Organization [email or web address] ([place], [place], [place], [place]) Address [address] [place] [address] Care Team Providers Care [employer] Teacher Name Role Phone Unavailable Primary Care Provider Unavailabl e Encounter Details Date Type Department Care Team (Late st Contact Info) Description 12/07/2020 Transcribed Document [facility] [place] [address] [place] [address] ProviderJason MD [address] [place] [address] Social History Tobacco Use Types [...] Conversion Note - Historical ProviderMD - 12/07/2020 12:07 PM CDT Evaluation, Occupational Therapy Entered On: 12/07/2020 14:52 EDT Performed On: 12/07/2020 14:26 EDT by LALITA SCHULZ, OTR/L General Information, OT Visit Type, OT : Initial evaluation Patient Orders : Order Date Order Ordering 12/07/2020 12:07 OT Evaluation and Treatment Ordered By: MARLEY CLARK MD-ORT 12/07/2020 12:07 OT Treatment Instructions Ordered By: MARLEY CLARK MD-ORJessica Active Diagnoses : No Qualifying Diagnoses Therapy Diagnosis, OT : Decreased ind in ADL and functional mobility Onset of Problem, OT : 12/07/2020 EDT Admission Date : 12/07/2020 05:53 Co-treated by, OT : Physical Therapist Personal Devices : Personal Devices No Devices Recorded Assistive Devices : Assistive Devices No Devices Recorded General Information Comment, OT : LALITA MONTELONGO OTR/Alejandro - 12/07/2020 14:26 EDT General Status Patient Received Status : Other: transport bed. Treatment Start Time : 12/07/2020 14:10 EDT Patient Left Status : Up in chair, RN/PCT informed, All needs met and within reach RN/PCT Informed Comment : CHIP alfonsoed evaluation Treatment End Time : 12/07/2020 14:24 EDT Treatment Time : 14 Minute(s) LALITA SCHULZ OTR/Alejandro - 12/07/2020 14:26 EDT History and Environment, OT Living Situation, Therapy : Home Patient Lives With : Sibling(s) Persons Providing Information : Patient Home Setup : Two story Laundry Room Location : Main level Bedroom Location : Upstairs Bathroom #1 Location : Main level Stairs : Yes Stair Location(s) : Inside, Outside Inside Stairs, Number of Steps : 12 Outside Stairs, Number of Steps : 4 LALITA SCHULZ OTR/Alejandro - 12/07/2020 14:26 EDT Prior LOF Bathing, OT : Independent Prior LOF Bed Mobility : Independent Prior LOF Upper Body Dressing, OT : Independent Prior LOF Lower Body Dressing, OT : Independent Prior LOF Toileting : Independent Prior LOF Transfer : Independent Prior LOF Grooming, OT : Independent Prior LOF for IADLs, OT : Independent LALITA SCHULZ OTR/Alejandro - 12/07/2020 14:26 EDT Upper Extremity Upper Extremity Dominance : Right Right UE Active ROM : WFL Right UE Strength : WFL Left UE Active ROM : WFL Left UE Strength : WFL LALITA SCHULZ OTR/Alejandro - 12/07/2020 14:26 EDT Self Care/Home Management, OT Self Feeding Assist Level, OT : Independent, complete Grooming Assist Level, OT : Independent, complete Bathing Assist Level, OT : Independent, complete Upper Body Dressing Assist Level, OT : Independent, modified Lower Body Dressing Assist Level, OT : Independent, modified Toileting Assist Level : Independent, complete Toilet Transfer Assist Level : Independent, modified Toilet Transfer Device : Belt, gait, Walker, rolling LALITA SCHULZ OTR/Alejandro Pratt 12/07/2020 14:26 EDT Functional Mobility Mobility Grid Bed Roll Left : Rehab Modified independence Bed Roll Right : Rehab Modified independence Bed Scooting : Rehab Modified independence Supine to Sit : Rehab Modified independence Sit to Stand : Rehab Minimal assistance Bed to Chair : Rehab Minimal assistance Chair to Bed : Rehab Minimal assistance Stand to Sit : Rehab Minimal assistance Sit to Supine : Rehab Modified independence LALITA SCHULZ OTR/Alejandro - 12/07/2020 14:26 EDT Cognition Assessment, OT Orientation : Oriented x 4 LALITA SCHULZ OTR/Alejandro Pratt 12/07/2020 14:26 EDT Indication Assessment, OT Occupational Therapy Indicated : Yes Problem List, OT : Impaired, bed mobility, Impaired, activities daily living, Impaired, endurance tolerance, Impaired functional mobility, Impaired, sitting balance, Impaired, standing balance, Impaired, strength, Impaired, transfers Potential Barriers, OT : Acuity of illness Rehabilitation Potential, OT : LALITA Lyles OTR/Alejandro Pratt 12/07/2020 14:26 EDT Plan of Care, OT OT Tx Plan/Goals Established w Patient : Yes OT Frequency Rehab : Five days per week OT Duration Rehab : Fourteen days OT Treatments Planned : Activities of daily living, Balance training, Functional mobility training, Orthotic training/fabrication, Pain management, Safety education LALITA SCHULZ OTR/Alejandro - 12/07/2020 14:26 EDT Assisted Goals, OT Dressing, Lower Body LTG Grid Goal #1 Activity : Dressing, Lower Body Assist : Independent, modified Date to Meet : 12/21/2020 EST Goal Status : Initial goal LALITA SCHULZ OTR/Alejandro Pratt 12/07/2020 14:26 EDT Toilet Transfer LTG Grid Goal #1 Activity : Toilet Transfer, Ambulatory Assist : Independent, modified Date to Meet : 12/21/2020 EST Goal Status : Initial goal LALITA SCHULZ OTR/Alejandro Pratt 12/07/2020 14:26 EDT Bed Mobility/ Bed Transfer LTG Grid Goal #1 Activity : Bed Mobility/Bed Transfer Assist : Independent, complete Date to Meet : 12/21/2020 EST Goal Status : Initial goal LALITA SCHULZ OTR/Alejandro Pratt 12/07/2020 14:26 EDT Treatment Note Subjective Comment : Pt agreeable. Patient's Response to Treatment : Pt tolerated well. Additional Objective Information : Pt supine on stretcher and participated in OT evaluation. Pt transfered to EOB with supervision. Pt transfered to stand with gait belt, walker, and min A with verbal cues. Pt transfered to chair with verbal cues and education on sequencing due to RLE numbness. Pt request functional mobility to bathroom. Pt required min A and verbal cue with the walker and gait belt. Pt completed toileting task with supervision. Pt transfered back to chair and educated on further therapy. Assessment : Pt will benefit from continued skilled OT services. Plan for Treatment : See LTG LALITA SCHULZ OTR/Alejandro Pratt 12/07/2020 14:26 EDT Pain Assessment Pain Scaled Used : 0-10 Pain scale Pain Score Pre-Intervention : 0 LALITA SCHULZ OTR/L - 12/07/2020 14:26 EDT Image 1 - Images currently included in the form version of this document have not been included in the text rendition version of the form. Anticipated Discharge Needs, OT/PT Anticipated Discharge to : Home, with home health LALITA SCHULZ OTR/L - 12/07/2020 14:[address] [facility] OT Charges OT Selfcare/Hm Mgmt Ea 15 Min : 1 OT Eval Low Complexity : 1 LALITA SCHULZ OTR/Alejandro Pratt 12/07/2020 14:26 EDT documented in this encounter Plan of Treatment Not on file documented as of this encounter Visit Diagnoses Not on filedocumented in this encounter
--- OUTSIDE RECORDS SUMMARY | 2024-08-17 08:12 | XMS_ITS | Encounter Summary ---
Author Organization [employer] ([place], [place], [place], [place]) Address [address] [place] [address] Care Team Providers Care Cloth Burler Name Role Phone Unavailable Primary Care Provider Unavailabl e Encounter Details Date Type Department Care Team (Late st Contact Info) Description 12/08/[address] [facility] [place] Family Medicine [address] [place] [address] ProviderJason MD [address] [place] [address] Social History Tobacco Use Types [...] Conversion Note - Jason ProviderMD - 12/08/2020 12:00 AM CDT Pain Assessment Entered On: 12/08/2020 5:00 EDT Performed On: 12/08/2020 1:20 EDT by Candi Jansen RN Intervention Information: acetaminophen Performed by Candi Jansen RN on 12/08/2020 00:20:00 EDT acetaminophen,1000mg Oral Pain Assessment Pain Assessment : Follow-up assessment Pain Scale Goal : 5 Pain Scale Used : 0-10 Scale Onset : Acute Opioid Adverse Effects : Not applicable Pain Improved by Intervention : Yes Candi Jansen RN - 12/08/2020 4:59 EDT Pain Scale Intensity : 1 Candi Jansen RN - 12/08/2020 4:59 EDT Image 4 - Images currently included in the form version of this document have not been included in the text rendition version of the form. documented in this encounter Plan of Treatment Not on file documented as of this encounter Visit Diagnoses Not on filedocumented in this encounter
--- OUTSIDE RECORDS SUMMARY | 2024-08-17 08:12 | XMS_ITS | Continuity of Care Document ---
Author Organization [facility] - Rory [place] MD, Main Office Address [address], [address] [place] [address] Care Team Providers Care Pharmacist Per Diem Name Role Phone RAYMUNDO SNYDER Primary Care Provider Assessment No assessment recorded. Plan of Treatment Reminders Order Date Submit Date Provider Last Modified By Organization Details Last Modified Time Details Appointments None recorded. Lab myasthenia gravis Ab complete panel, serum 2024 025 [place] [facility], [address], [address], [place], [address], 08:52:34 Referral None recorded. Procedures None recorded. Surgeries None recorded. Imaging MRI, brain, w/o contrast 2024 025 [facility], [address], [place], [address], 09:35:20 Medication Orders None recorded. Patient TargetsNo targets recorded. Patient Instructions Encounter Date Encounter Id Patient Instructions Last Modified By Organization Details Last Modified Time 07/11/2024 [id number] myasthenia gravis: care instructions Not available 07/11/2024 13:58:27 Finding has been discussed with the patient in detail. Brain MRI scan without contrast. Serology for myasthenia gravis. She is to have a modified barium swallow next week in [facility]. I will see her back in follow-up. Not available 07/11/2024 14:07:38 Reason for Referral None Reported. Results Created Date Observation Date Name Description Value Unit Range Abnormal Flag Note LastModifiedBy Organization Detail LastModifiedTime 07/30/19 25 07/26/2024 MRI, brain , w/o contr ast No observ ation record ed. [facility] [address], [place], [address], 07/29/2024 12:50:56 Result Notes None recorded. Problems No Known Problems Procedures Surgical History Date Name Laterality Status Provider Name and Address Organization Details Recorded Time local excision of malignant neoplasm of stomach completed Darshana Burgos MD 07/11/2024 13:48:03 Knee Surgery completed Darshana Burgos MD 07/11/2024 13:48:18 operation on gallbladder completed Darshana Burgos MD 07/11/2024 13:48:51 Hysterectomy completed Darshana Burgos MD 07/11/2024 13:48:58 Imaging Results None recorded. Procedure Notes None recorded. Medical Equipment None Reported. Allergies Allergen ID Allergen Name Allergen Category Reaction Reaction Severity Criticality Documentation Date Start Date Code Code System Note Provider Name and Address Organization Details Recorded Time 9661 strawberr y allergeni c extract food Not available Not available Not available 07/11/2024 88858 4 RxNorm LONNIE Oneill MD 13:39:23 Medications Name Sig Start Date Stop Date Status Note LastModified by Organization Details LastModified Time propafenone 150 mg tablet TAKE 1 TABLET BY MOUTH EVERY 8 HOURS FOR 90 DAYS active Not Available Not Available No t Available pilocarpine 5 mg tablet TAKE 1 TABLET BY MOUTH THREE TIMES A DAY FOR 30 DAYS active Not Available Not Available No t Available atorvastati n 80 mg tablet TAKE 1 [...] TWICE DAILY -- FINISH ALL MEDICINE -- 07/11 completed Not Available Not Available Not Available meloxicam 15 mg tablet TAKE 1 TABLET BY MOUTH EVERY OTHER DAY active Not Available Not Available No t Available valsartan 160 mg-hydrochl orothiazide 12.5 mg tablet TAKE 1 TABLET BY MOUTH EVERY DAY active Not Available Not Available No t Available valsartan 80 mg tablet TAKE 1 TABLET BY MOUTH EVERY DAY 07/11 completed Not Available Not Available Not Available erythromyci n 5 mg/gram (0.5 %) eye ointment apply in each affected eye FOUR TIMES DAILY FOR 10 DAYS 07/11 completed Not Available Not Available Not Available levothyroxi ne 125 mcg tablet TAKE 1 TABLET BY MOUTH EVERY DAY FOR 90 DAYS 07/11 completed Not Available Not Available Not Available gabapentin 100 mg capsule TAKE 1 CAPSULE BY MOUTH THREE TIMES A DAY NEEDED FOR SHINGLES PAIN FOR 10 DAYS 07/11 completed Not Available Not Available Not Available doxycycline hyclate 100 mg tablet TAKE ONE TABLET BY MOUTH TWICE DAILY FOR 10 DAYS -- FINISH ALL MEDICINE -- 07/11 completed Not Available Not Available Not Available [...] Not Available Not Available No t Available diclofenac 1 % topical gel APPLY TO BOTH KNEES UP TO 4 TIMES DAILY 07/11 completed Not Available Not Available Not Available sodium,pota ssium,mag sulfates 17.5 gram-3.13 gram-1.6 gram oral soln PLEASE SEE ATTACHED FOR DETAILED DIRECTION S 07/11 completed Not Available Not Available Not Available [...] height Body mass index (BMI) Body weight Heart rate Respiratory rate Systolic And Diastolic Provider Name and Address Organization Details Last Updated DateTime 157.48 cm 38.4 kg/m2 39566.4 g 77 /min 17 /min 127/76 mm[Hg] Rory Burgos MD [address] [facility], [facility] [address], [place], [address] 0LONNIE MD 14:00:31 Social History Question Answer Notes LastModified by Organizat ion Details LastModified Time Tobacco Smoking Status Never Smoker Darshana Benitezatt nullLONNIE MD 07/11/2024 13:47:26 Do You Have An Advance Directive? Yes Information not available 07/11/2024 What Was The Date Of Your Most Recent Tobacco Screening? 07/11/2024 Information not available 07/11/2024 Have You Ever Been Counseled For Unhealthy Alcohol Use? No Information not available 07/11/2024 Has Tobacco Cessation Counseling Been Provided? No Information not available 07/11/2024 Sex: Unknown Functional Status Question Answer Note LastModified by Organizat ion Details LastModified Time Do you use any illicit or recreational drugs? No Information not available 07/11/2024 Do you or have you ever used any other forms of tobacco or nicotine? No Information not available 07/11/2024 What is your level of alcohol consumption? Occasional Information not available 07/11/2024 Are you able to walk? YESWOREST Information not available 07/11/2024 Mental Status None recorded. Family History Relationship Description Onset Age of this Age Resolved Age Notes LastModified by Organization Details LastModified Time Mother Malignant neoplastic disease Not available 2024 13:46:19 Mother Diabetes mellitus Not available 2024 13:46:36 Mother Heart disease Not available 2024 13:46:49 Mother Hypertensive disorder Not available 2024 13:46:59 Father Malignant neoplastic disease Not available 2024 13:46:19 Father Heart disease Not available 2024 13:46:49 Father Hypertensive disorder Not available 2024 13:46:59 Sister Diabetes mellitus Not available 2024 13:46:36 Brother Mental health problem Not available 2024 13:47:10 Medical History Condition Response Arthritis Y Cancer Y Diabetes Y Hyperlipidemia Y Hypertension Y Gynecological HistoryNo gynecological history recorded. Obstetrics History GPAL:G 0 P 0 0 0 0 Past Encounters Encounter ID Performer Location Encounter Start Date Encounter Closed Date Diagnosis/Indication Diagnosis SNOMED-CT Code Diagnosis ICD10 Code Diagnosis Note [id number] Rory Burgos MD Main Office [address], [facility] [address] [place] [address] 07/11/2024 13:20:28 07/11/2024 14:08:48 Myasthenia gravis 82081767 G70.00 The patient is a 69-year-ol d white female. She has recent onset with this dysphagia and a sense of dry mouth. She also reported difficulty speaking at times. Bulbar myasthenia gravis needed to be excluded. Oropharyng eal dysphagia 29342884 R13.12 I cannot exclude CVA or demyelinat ing disease. Health Concerns Section Related Observation LastModified by Organization Detai ls LastModified Time None Recorded Concern Status LastModified by Organization Details LastModified Time None Recorded Payers Encounter Date Sequence Insurance Name Policy Number Policy Rivas Covered Member ID Rivas Member ID Guarantor Name 07/11/2024 1 [place]ICARE[place] [facility] [id number] 1 Tracy [facility] 07/11/2024 2 [employer] Tracy [facility] [id number] Tracy [facility] Notes Date Note Type Note Provider Name a nm Address Organization Details Recorded Time 07/11/2024 text/html Tracy is a 69-year-old white female. 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 She has a history of stomach cancer. She also had a history of gastroparesis. She began experiencing difficulty with dry mouth, difficulty swallowing to the point she'll vomit after a few bites of meat. She was seen by ENT. She has ample saliva. She is suspected to have myasthenia gravis or some type of neurologic condition. She has a history of SVT. She is on Xarelto. She also takes propafenone, Carvedilol, valsartan for blood pressure and cardiac abnormality. She is on Jardiance for diabetes. She is to also taking Ozempic. She has been on Ozempic for many years prior to the onset of dysphagia. She is also taking Kerendia for stage I kidney disease. More recently, she was given pilocarpine for dry mouth and she reported no improvement. She denies any diplopia or generalized muscle weakness. She denies any history of CVA. Rory Burgos MD [address] [facility], [address] [address], [place], [address], [facility] - Rory Burgos MD 07/11/2024 14:08:27 OBGyn Episode No OBEpisode recorded.
--- OUTSIDE RECORDS SUMMARY | 2024-08-17 08:12 | XMS_ITS | Encounter Summary ---
Author Organization [employer] ([place], [place], [place], [place]) Address [address] [place] [address] Care Team Providers Care Coil Former Name Role Phone Unavailable Primary Care Provider Unavailabl e Encounter Details Date Type Department Care Team (Late st Contact Info) Description 12/08/2020 Transcribed Document [facility] [place] Family Medicine [address] [place] [address] ProviderJason MD [address] [place] [address] Social History Tobacco Use Types [...] Conversion Note - Jason ProviderMD - 12/08/2020 4:26 PM CDT Final Discharge Planning Entered On: 12/08/2020 16:26 EDT Performed On: 12/08/2020 16:26 EDT by ARMIN TABOR RN-Airset Molder Final Discharge Planning Discharge Arrangements : Patient Post-Acute Information Patient Name: LESLIE MARTÍNEZ Gender: Female : [birth year] Age: 65 Years No Post-Acute Placement(s) Listed No Post-Acute Service(s) Listed No [place] Referral(s) Listed Patient Offered Choice/Affiliations Explained : Yes Designation of Choice Signed : Yes Important Medicare Message Reviewed With : Other: Outpatient Transportation Needs : Car Follow Up Appointment Scheduled : Yes Is Patient High/Moderate Readmission Risk? : No Patient/Family Notified of Plan : Yes Support Person/Pt Rep Notified of Plan : Yes Patient/Family Notified : Spouse Is Patient Ready for Discharge? : Yes Physician Notified Patient is Ready for Discharge? : Yes Discharge To Care Management : Home/Residential/Nursing Home or Self Care - ARMIN TABOR RN-Airset Molder - 12/08/2020 16:26 EDT Electronically signed by Ander Mckinney Conversion Steamtable Attendant Railroad Cerner at 06/03/2022 8:53 AM CDT documented in this encounter Plan of Treatment Not on file documented as of this encounter Visit Diagnoses Not on filedocumented in this encounter
--- OUTSIDE RECORDS SUMMARY | 2024-08-17 08:12 | XMS_ITS | Encounter Summary ---
Author Organization [employer] ([place], [place], [place], [place]) Address [address] [place] [address] Care Team Providers Care Network Strategist Name Role Phone Unavailable Primary Care Provider Unavailabl e Encounter Details Date Type Department Care Team (Late st Contact Info) Description 11/19/2020 Transcribed Document [facility] [place] [facility] [address] [place] [address] ProviderJason MD [address] [place] [address] Social History Tobacco Use Types [...] Cerner Conversion Note - Jason ProviderMD - 11/19/2020 11:15 AM CDT PAT Adult Entered On: 11/19/2020 11:33 EDT Performed On: 11/19/2020 11:15 EDT by YARIEL CAVAZOS RN Vital Measurements Temperature Source : Temporal artery scanning Temperature, Fahrenheit : 97.0 Deg F Clinical Temperature, C : 36.1 Deg C Peripheral Pulse Rate : 70 bpm Respiratory Rate : 20 Breaths/Min Blood Pressure Location : Arm, right upper Systolic Blood Pressure : 132 mmHg Diastolic Blood Pressure : 90 mmHg Oxygen Saturation : 98 % Oxygen Therapy Mode : Room air YARIEL CVAAZOS RN - 11/19/2020 11:15 EDT Pain Assessment Pain Assessment : Initial assessment Pain Scale Goal : 5 Pain Scale Used : 0-10 Scale YARIEL CAVAZOS RN - 11/19/2020 11:15 EDT Height and Weight, Clinical Dosing Height Source : Measured Height Entry Format : [place] Height, Feet : 5 ft(Converted to: 152 cm, 60 Inch) Height, Inches : 3 Inch(Converted to: 0 ft 3 Inch, 7.62 cm) Clinical Height : 160.02 cm Weight Source : Standing scale Weight Entry Format : [place] Clinical Dosing Weight : 104.09 kg Weight, Pounds : 229 lb Body Surface Area (BSA) : 2.05 m2 Body Mass Index : 40.6 kg/m2 (>HHI) [place] Body Weight : 52 kg YARIEL CAVAZOS RN - 11/19/2020 11:15 EDT Health Histories Smoking Status : Never (less than 100 in lifetime; none in last 30 days) Smokeless Tobacco Status : Never YARIEL CAVAZOS RN - 11/19/2020 11:15 EDT Social History (As Of: 11/19/2020 11:33:12 EDT) Tobacco: Use in Last 12 Months: No. Smoking Status Never smoker. (Last Updated: 09/23/2014 17:46:19 EDT by EMORY CEJA RN) Never (less than 100 in lifetime) Smoking Status. Never Smokeless Tobacco Status. (Last Updated: 11/19/2020 11:19:17 EDT by YARIEL CAVAZOS RN) Alcohol: Alcohol Use History Yes. Alcohol Use Frequency Socially. (Last Updated: 11/19/2020 11:19:32 EDT by YARIEL CAVAZOS RN) Substance Abuse: Drug Use Hx: No. (Last Updated: 09/23/2014 17:46:28 EDT by EMORY CEJA RN) Drug Use Hx: No. Use in Last 12 Months: No. (Last Updated: 11/19/2020 11:19:17 EDT by YARIEL CAVAZOS RN) Infectious Disease History Does patient have symptoms of COVID-19? : No Has the Patient Been Tested for COVID-19 in the last 14 days? : No, Patient stated Does the Patient state known exposure to a COVID-19 positive case in the last 14 days? : No Patient Vaccinated for COVID-19 : Fully vaccinated YARIEL CAVAZOS RN - 11/19/2020 11:15 EDT Infectious Disease Risk Screening Grid Cough < 2 wks of unknown origin : NO Cough > 2 weeks : NO Blood in Sputum : NO Fever or self-reported Fever : NO Rash of unknown origin : NO Headache : NO Stiff neck : NO Night Sweats : NO Unexplained Weight Loss : NO Diarrhea (3 episode per day) : NO YARIEL CAVAZOS RN - 11/19/2020 11:15 EDT Physical contact outside [place] in the last 30 days : No Hospitalized in Foreign Country : No Infectious Disease History : Chicken pox/Shingles, Influenza, Measles, Mumps INF Disease TB Screening Calc : 0 INF Disease Recent Travel Calc : 0 YARIEL CAVAZOS RN - 11/19/2020 11:15 EDT COVID19 PreProcedure Screening Is this an Emergent or Add on Procedure? : No Date PreProcedure COVID-19 test known? : Yes Date of PreProcedure COVID-19 : 12/03/2020 EDT Has patient been isolated since the test : Yes Exposed to COVID19 symptoms since test? : No JITENDRA Zheng RN - 12/07/2020 7:56 EDT Anesthesia/Transfusion History Family History of Anesthesia Reaction : No prior transfusion(s) Blood Transfusion Acceptable to Patient : Yes Transfusion History : Prior anesthesia reaction Type of Anesthesia Reaction : Excessive nausea/vomiting Family History of Anesthesia Reaction : None YARIEL CAVAZOS RN - 11/19/2020 11:15 EDT Functional Assessment Functional ADL Evaluation Index EBN Bathing : Independent (2) Dressing : Independent (2) Toileting : Independent (2) Transferring Bed or Chair : Independent (2) Continence : Independent (2) Feeding : Independent (2) YARIEL CAVAZOS RN - 11/19/2020 11:15 EDT ADL Index Score : 12 YARIEL CAVAZOS RN - 11/19/2020 11:15 EDT Advance Directive Patient has Advance Directive *Q : No, patient refuses Advance Directive information YARIEL CAVAZOS RN - 11/19/2020 11:15 EDT Spiritual/Cultural Needs Any Spiritual/Cultural Needs or Requests : Yes Spiritual/Cultural Needs Comment : 12/07 Rastafari Preference : Gnosticist, Gurpreet Spiritual/Cultural Needs Comment : 12/07 YARIEL CAVAZOS RN - 11/19/2020 11:15 EDT [place] Suicide Severity Rating Scale (C-SSRS) CSSRS Past Month Wish to be : No CSSRS Past Month Suicidal Thoughts : No CSSRS Lifetime Suicide Behavior : No Suicide Severity Rating Score : 0 Suicide Severity Rating : No Additional Care Required at this time YARIEL CAVAZOS RN - 11/19/2020 11:15 EDT Psychosocial History Currently in Unsafe Situation : No YARIEL CAVAZOS RN - 11/19/2020 11:15 EDT Teaching/Learning Assessment Barriers To Learning : None evident Individuals Taught : Patient Readiness to Learn : Cooperative Readiness to Learn : Explanation, Printed materials YARIEL CAVAZOS RN - 11/19/2020 11:15 EDT Education Topics, Periop Preadmission Perioperative Education Grid Arrival Time/Place : Verbalizes understanding CHG Preoperative Bathing/Cloths : Verbalizes understanding Infection Control : Verbalizes understanding IV's : Verbalizes understanding NPO Status/Directions : Verbalizes understanding Pain Management : Verbalizes understanding Postoperative Care Preparations : Verbalizes understanding Preprocedure Preparations : Verbalizes understanding Preprocedure Tests/Labs : Verbalizes understanding Remove Body Piercings : Verbalizes understanding Responsible Adult : Verbalizes understanding Take/Hold Medications Pre-Procedure : Verbalizes understanding YARIEL CAVAZOS RN - 11/19/2020 11:15 EDT Responsible Adult Contact Information : Moisés Martínez, bill, YARIEL CAVAZOS RN - 11/19/2020 11:15 EDT General Info Preferred Name : Tracy Patient Arrival Date/Time : 12/07/2020 7:10 EDT JITENDRA Zheng RN - 12/07/2020 7:56 EDT Arrived From : Home Mode of Arrival on Unit : Ambulatory YARIEL CAVAZOS RN - 11/19/2020 11:15 EDT Legal Guardian : Son, Spouse JITENDRA Zheng RN - 12/07/2020 7:56 EDT Want Family/Rep/Phys Notified of Admit : No Emergency Contact #1 : Moisés Martínez Emergency Contact #1 Emergency Contact #1 Relationship : son Emergency Contact #2 : Moisés Martínez Emergency Contact #2 Emergency Contact #2 Relationship : spouse Information Obtained From : Patient Primary Language : Malay Preferred Communication Mode : Verbal Communication Barrier : None .Net Developer Needed : No Objects to Sharing Info w Family : No YARIEL CAVAZOS RN - 11/19/2020 11:15 EDT Robert Scale Robert Sensory Perception : No impairment Robert Moisture : Rarely moist Robert Activity : Walks frequently Robert Mobility : Slightly limited Robert Nutrition : Excellent Robert Friction and Shear : No apparent problem Robert Score : 22 YARIEL CAVAZOS RN - 11/19/2020 11:15 EDT Sleep Apnea Risk Assmt Hx of Obstructive Sleep Apnea Diagnosis : No Snore Loudly : No Tired, Fatigued, or Sleepy During Day : Yes Observed Stopping Breathing During Sleep : No Have/Are Being Treated for Hypertension : Yes BMI Greater Than 35 kg/m2 : Yes Age over 50 Years Old : Yes Neck Circumference Greater Than 40 cm : Yes Gender Male : No STOP-BANG Sleep Apnea Risk Level Score : 5 YARIEL CAVAZOS RN - 11/19/2020 11:15 EDT Pain Scale Intensity : 1 YARIEL CAVAZOS RN - 11/19/2020 11:15 EDT Image 4 - Images currently included in the form version of this document have not been included in the text rendition version of the form. documented in this encounter Plan of Treatment Not on file documented as of this encounter Visit Diagnoses Not on filedocumented in this encounter
--- OUTSIDE RECORDS SUMMARY | 2024-08-17 08:12 | XMS_ITS | Encounter Summary ---
Author Organization [employer] ([place], [place], [place], [place]) Address [address] [place] [address] Care Team Providers Care Slip Cover Estimator Name Role Phone Unavailable Primary Care Provider Unavailabl e Encounter Details Date Type Department Care Team (Late st Contact Info) Description 12/07/2020 Transcribed Document [facility] [place] Family Medicine [address] [place] [address] ProviderJason MD [address] [place], [place] [id number] Social History Tobacco Use Types Packs/Day Years [...] Conversion Note - Historical ProviderMD - 12/07/2020 2:08 PM CDT Meds to Bed Enrollment Entered On: 12/07/2020 14:49 EDT Performed On: 12/07/2020 14:08 EDT by Mikhail [employer] Cook Cert Lead Meds to Bed Enrollment Patient Enrollment Decision: : Yes/enroll in meds to bed program Mikhail [employer] Cook Cert Lead - 12/07/2020 14:49 EDT documented in this encounter Plan of Treatment Not on file documented as of this encounter Visit Diagnoses Not on filedocumented in this encounter
--- OUTSIDE RECORDS SUMMARY | 2024-08-17 08:12 | XMS_ITS | Encounter Summary ---
Author Organization [employer] ([place], [place], [place], [place]) Address [address] [place] [address] Care Team Providers Care Car Rental Service Attendant Name Role Phone Unavailable Primary Care Provider Unavailabl e Encounter Details Date Type Department Care Team (Late st Contact Info) Description 12/08/2020 Transcribed Document [facility] Radiology [address] [place] [address] Mary Oneal MD [facility] [address] [address] Social History Tobacco Use Types Packs/Day Years Used Date Smoking Tobacco: Never Assessed Comments Unknown Sex and Gender Information Value Date Recorded Sex Assigned at Female 08/10/2021 7:43 PM CDT Legal Sex Female 7:43 PM CDT Gender Identity Female 08/10/2021 7:43 PM CDT Sexual Orientation Not on file documented as of this encounter Miscellaneous Notes * Cerner Conversion Note - Mary Oneal MD - 12/08/2020 9:51 AM EDT Patient: LESLIE MARTÍNEZ Age: 65 years Sex: Female : 1955 Associated Diagnoses: None Author: KESHA DE OLIVEIRA PA 11/14\07/2020 cc: medical management s/p right total knee arthroplasty S: Pt is doing ok. No f'/c/s. No n/v/d. () gas, (-) BM. No CP, SOA, palpitations. No cough or sputum. Urinating well. +post op pain. Using incentive spirometer. No acute complaints. Blood pressure has been lower end of normal. She says this is normal for her. Discussed risks of hypotension when taking blood pressure medications at home. Recommend not taking blood pressure medications with systolic less than 100. HPI: Patient is a 65 yo female admitted to [facility] ([place], [place]) per Dr. Quinteros for a right total knee arthroplasty. Preoperatively patient was found to have advanced osteoarthritis of the right knee and elected surgical intervention. Patient is followed perioperatively while hospitalized for medical management. Initial Visit: patient being seen for initial visit in pre-op bay. Patient denies any CVA, TBI. Denies COPD, asthma. Denies heart arrhythmias, CAD, CHF. Denies any hx of issues. Denies any hx of cancer. Denies recent abx use. Endorses hx of Hypothyroidism, HTN, DM2, IBS, diverticulitis, meniere's disease. Past Med Hx: Active Problems (8) At risk for sleep apnea Diverticulitis DM (diabetes mellitus), type 2 GERD (gastroesophageal reflux disease) HTN (hypertension) Hypothyroidism IBS (irritable bowel syndrome) Stomach cancer Active Procedures (6) Anal fissure bilateral meniscus repair Cholecystectomy Hysterectomy Oral surgery stomach cancer Family Hx: M: colon cancer, CAD, DM2 D: Colon cancer, CAD S: DM1 B: Alcholism B: brain tumor Social & Psychosocial Habits Alcohol 11/19/2020 Alcohol Use History, Social Habits Yes Alcohol Use Frequency Socially Substance Abuse 09/23/2014 Recreational Drug Use History No 11/19/2020 Recreational Drug Use History No Recreational Drug Use Last 12 Months No Tobacco 09/23/2014 Tobacco Use Within Last Twelve Months No Smoking Status Never smoker 11/19/2020 Smoking Status Never (less than 100 in l Smokeless Tobacco Status Never Allergies (2) Active Reaction Strawberries None Documented tetracycline None Documented Home Medications (14) Active aspirin 81 mg oral tablet, chewable 81 mg = 1 Tab, Oral, Daily biotin 5000 mcg oral capsule 1 Tab, Oral, Daily bisoprolol 5 mg oral tablet 2.5 mg = 0.5 Tab, Oral, Daily CoQ10 1 Tab, Oral, Daily Edarbyclor 40 [...] 80 mg = 1 Tab, Oral, Daily meloxicam 15 mg oral tablet 15 mg = 1 Tab, Oral, Daily metformin 500 mg oral tablet 500 mg = 1 Tab, Oral, BID Nitromist 0.4 mg sublingual spray 0.4 mg = 1 [place], SubLINgual, Q5Min Probiotic Formula oral capsule 2 Cap, Oral, Daily Vitamin B12 1000 mcg oral tablet 1,000 mcg = 1 Tab, Oral, Daily ROS as above Exam: Vitals Signs (last 24 hrs) Last Charted Minimum Maximum Temp 97.5 (DEC 08 06:12) 97.5 (DEC 08 06:12) 98.3 (DEC 07 17:00) Mon HR 74 (DEC 08 08:39) 62 (DEC 07 09:07) 97 (DEC 07 16:30) Resp Rate 16 (DEC 08 06:12) 16 (DEC 07 11:47) H 22 (DEC 07 09:07) SBP 109 (DEC 08 08:39) L 69 (DEC 07 13:20) H 148 (DEC 07 16:46) DBP 64 (DEC 08 08:39) L 32 (DEC 07 13:20) 83 (DEC 07 16:46) MAP 72 (DEC 08 06:12) 47 (DEC 07 13:20) 98 (DEC 07 16:46) SpO2 95 (DEC 08 08:00) L 93 (DEC 07 12:25) 100 (DEC 07 11:47) GEN: Alert, awake, NAD, resting in chair with leg elevated Neck: supple, no thyromegaly HEENT: NCAT, no icterus, no thrush. Nares patent. CV: S1S2, no murmur. No LE edema RESP: CTAB, NL. ABD: soft, NTND, +BS MSK: Post right TKA, SCDs on, limited range of motion. Data: Labs Most Recent Last 28 days CBC Results-Most Recent Last 28 Days Event Name Event Result Date/Time WBC 14.6 K/uL High 12/08/20 02:48:00 RBC 3.54 Million/uL Low 12/08/20 02:48:00 Hgb 10.3 g/dL Low 12/08/20 02:48:00 Hct 30.9 % Low 12/08/20 02:48:00 MCV 87.3 fL 12/08/20 02:48:00 MCH 29.1 pg 12/08/20 02:48:00 MCHC 33.3 Gram/dL 12/08/20 02:48:00 Platelet Count 253 K/uL 12/08/20 02:48:00 MPV 9.6 fL 12/08/20 02:48:00 RDW 12.9 % 12/08/20 02:48:00 Slide Review No 12/08/20 02:48:00 BMP Results (Most Recent Last 28 Days) Event Name Event Result Date/Time Sodium Level 135 mmol/L Low 12/08/20 02:48:00 Potassium Level 3.8 mmol/L 12/08/20 02:48:00 Chloride Level 102 mmol/L 12/08/20 02:48:00 Carbon Dioxide Level 24 mmol/L 12/08/20 02:48:00 Anion Gap 13 12/08/20 02:48:00 Glucose Level 137 mg/dL High 12/08/20 02:48:00 Blood Urea Nitrogen 22 mg/dL 12/08/20 02:48:00 Creatinine Level 0.9 mg/dL 12/08/20 02:48:00 eGFR >60 12/08/20 02:48:00 eGFR NonAfrican >60 12/08/20 02:48:00 Bun/Creatinine 24.4 High 12/08/20 02:48:00 Calcium Level 8.2 mg/dL Low 12/08/20 02:48:00 Other Lab Results (Most Recent Last 28 Days) Event Name Event Result Date/Time PT 10.7 Second(s) 11/19/20 11:14:00 INR 1 11/19/20 11:14:00 PTT 28.5 Second(s) 11/19/20 11:14:00 Impression: Post-op anemia - likely due to acute blood loss from surgery, dilutional component advanced OA right knee -s/p right total knee arthroplasty At risk for sleep apnea DM (diabetes mellitus), type 2 HTN Hypothyroidism Plan: Recommend holding pressure medications at home with systolic less than 100. OK to discharge from IM standpoint pain meds per surgery DVT prophylaxis per surgery bowel regimen at home IS at home Okay to resume home medications. Scribed by Kenia Mobley Assessment and plan made in conjunction with Dr. Oneal. documented in this encounter Plan of Treatment Not on file documented as of this encounter Visit Diagnoses Not on filedocumented in this encounter
--- OUTSIDE RECORDS SUMMARY | 2024-08-17 08:12 | XMS_ITS | Encounter Summary ---
Author Organization [employer] ([place], [place], [place], [place]) Address [address] [place] [address] Care Team Providers Care Dietary Supervisor Name Role Phone Unavailable Primary Care Provider Unavailabl e Encounter Details Date Type Department Care Team (Late st Contact Info) Description 11/06/2020 Transcribed Document [facility] [place] [facility] [place] [address] ProviderJason MD [facility] [place] [address] Social History Tobacco Use Types Packs/Day Years Used Date Smoking Tobacco: Never Assessed Comments Unknown Sex and Gender Information Value Date Recorded Sex Assigned at Female 08/10/2021 7:43 PM CDT Legal Sex Female 7:43 PM CDT Gender Identity Female 08/10/2021 7:43 PM CDT Sexual Orientation Not on file documented as of this encounter Miscellaneous Notes * Cerner Conversion Note - Historical MD Casie - 11/06/2020 3:16 PM CDT Orthopedic Nurse Navigator Entered On: 11/06/2020 15:17 EDT Performed On: 11/06/2020 15:16 EDT by America Burroughs RN-Navigator Orthopedic Nurse Navigator Assessment Anticipated Discharge Plan Comment : Pt called to confirm PAT 11/19 at 1030, COVID test 12/03. She plans on overnight stay after surgery and d/c home with the help of her and son, who is an ED doctor here. She would like OPT at [facility] OPT. An appt will be made. America Burroughs RN-Navigator - 11/06/2020 15:16 EDT documented in this encounter Plan of Treatment Not on file documented as of this encounter Visit Diagnoses Not on filedocumented in this encounter
--- OUTSIDE RECORDS SUMMARY | 2024-08-17 08:13 | XMS_ITS | Encounter Summary ---
Author Organization [employer] ([place], [place], [place], [place]) Address [address] [place] [address] Care Team Providers Care Group Dynamics Instructor Name Role Phone Unavailable Primary Care Provider Unavailabl e Encounter Details Date Type Department Care Team (Late st Contact Info) Description 12/07/2020 Transcribed Document [facility] [place] [facility] [place] [address] ProviderJason MD [address] [place] [address] Social History Tobacco Use Types Packs/Day Years Used Date Smoking Tobacco: Never Assessed Comments Unknown Sex and Gender Information Value Date Recorded Sex Assigned at Female 08/10/2021 7:43 PM CDT Legal Sex Female 7:43 PM CDT Gender Identity Female 08/10/2021 7:43 PM CDT Sexual Orientation Not on file documented as of this encounter Miscellaneous Notes * Tyrel Conversion Note - Jason ProviderMD - 12/07/2020 8:45 AM CDT Peripheral Nerve Block Entered On: 12/07/2020 8:45 EDT Performed On: 12/07/2020 8:45 EDT by JITENDRA Zheng RN Peripheral Nerve Block Peripheral Nerve Block End Date/Time : 12/07/2020 8:53 EDT JITENDRA Zheng RN - 12/07/2020 8:56 EDT Peripheral Nerve Block Start Date/Time : 12/07/2020 8:40 EDT Verbally Confirm Pt, Site, and Procedure : Yes Time Out Pause Time : 12/07/2020 8:40 EDT Site Marked and Visible : Yes Site Preparation : 30 second scrub plus 30 second dry time Peripheral Nerve Block : Adductor Canal, iPack Laterality : Right Peripheral Nerve Block Performed by : GARCÍA PEREZ MD-ANS Medication Delivery Method : Single Shot Peripheral Nerve Block Assisted by : JITENDRA Zheng, RN Ultra sound used during insertion : Yes Nerve Block Activity, Patient Tolerance : Good JITENDRA Zheng, RN - 12/07/2020 8:45 EDT Electronically signed by [facility] Conversion Cigarette Carton Sealer Cerner at 06/03/2022 8:51 AM CDT documented in this encounter Plan of Treatment Not on file documented as of this encounter Visit Diagnoses Not on filedocumented in this encounter
--- OUTSIDE RECORDS SUMMARY | 2024-08-17 08:13 | XMS_ITS | Encounter Summary ---
Author Organization [employer] ([place], [place], [place], [place]) Address [address] [place] [address] Care Team Providers Care Embedded Software Architect Name Role Phone Unavailable Primary Care Provider Unavailabl e Encounter Details Date Type Department Care Team (Late st Contact Info) Description 04/09/2021 Transcribed Document [facility] [place] [address] [place] [address] ProviderJason MD [address] [place] [address] Social History Tobacco Use Types [...] Cerner Conversion Note - Jason ProviderMD - 04/09/2021 2:17 PM STITCH BONDING MACHINE TENDER HELPER [employer] Authorization Entered On: 04/09/2021 14:18 EST Performed On: 04/09/2021 14:17 EST by ROSSY ALEX, Display Decorator Primary Insurance Authorization Authorization and Policy Numbers : Insurance 1 Health Plan: [employer] Policy Number: [id number] Authorization Number: Insurance 2 Health Plan: MEDICARE Policy Number: [id number] Authorization Number: Insurance Primary Name : Lux [id number] Authorization Status-Primary : No precert required Authorized Service Begin Date-Primary : 04/12/2021 EST Observation Authorization Nbr-Primary : per [facility] Authorization Comments-Primary : pt iliana for OP total knee replacement on 04/12/21: per [facility] for [employer] Historical Authorization Comments-Primary : No Authorization Comments Found ROSSY ALEX, Display Decorator - 04/09/2021 14:17 EST Secondary Insurance Authorization Authorization and Policy Numbers : Insurance 1 Health Plan: [employer]M [employer] Policy Number: [id number] Authorization Number: Insurance 2 Health Plan: MEDICARE Policy Number: [id number] Authorization Number: Insurance Secondary Name : Medicare Authorized Service Begin Date-Secondary : 04/12/2021 EST Historical Authorization Comments-Secondary : No Authorization Comments Found ROSSY ALEX, Display Decorator - 04/09/2021 14:17 EST Electronically signed by Faye [facility] Conversion Multi Skilled Operator Cerner at 06/03/2022 8:54 AM CDT documented in this encounter Plan of Treatment Not on file documented as of this encounter Visit Diagnoses Not on filedocumented in this encounter
--- OUTSIDE RECORDS SUMMARY | 2024-08-17 08:13 | XMS_ITS | Encounter Summary ---
Author Organization [employer] ([place], [place], [place], [place]) Address [address] [place] [address] Care Team Providers Care Salesperson Used Cars Name Role Phone Unavailable Primary Care Provider Unavailabl e Encounter Details Date Type Department Care Team (Late st Contact Info) Description 12/07/2020 Transcribed Document [facility] Radiology 1 [place] [address] Mary Oneal MD [address] [place] [id number] Social History Tobacco Use Types Packs/Day [...] Conversion Note - Mary Oneal MD - 12/07/2020 10:02 AM EDT Patient: LESLIE MARTÍNEZ Age: 65 years Sex: Female : 1955 Associated Diagnoses: None Author: KESHA DE OLIVEIRA PA 12/07/2020 cc: medical management s/p right total knee arthroplasty HPI: Patient is a 65 yo female admitted to [facility] per Dr. Quinteros for a right total [...] mg sublingual spray 0.4 mg = 1 [place], SubLINgual, Q5Min Probiotic Formula oral capsule 2 Cap, Oral, Daily Vitamin B12 1000 mcg oral tablet 1,000 mcg = 1 Tab, Oral, Daily Constitutional: [No fevers, chills, sweats] Eye: [No recent visual problems, eye discharge, eye pain, redness] HEENT: [No ear pain, nasal congestion, sore throat, voice changes] Respiratory: [No shortness of breath, cough, pain on breathing, sputum production] Cardiovascular: [No Chest pain, palpitations, syncope, shortness of breath while laying flat] Gastrointestinal: [No nausea, vomiting, diarrhea, constipation] Genitourinary: [No hematuria, dysuria, incontinence, lesions on genitalia] Musculoskeletal: + bilateral knee pain, limited ROM. Integumentary: [No rash, pruritus, abrasions, lesions] Exam: Vitals Signs (last 24 hrs) Last Charted Minimum Maximum Temp 97.2 (DEC 07 07:59) 97.2 (DEC 07:59) 97.2 (DEC 07:59) Mon HR 64 (DEC 07:00) 64 (DEC 07 09:00) 73 (DEC 07 07:59) Resp Rate 18 (DEC 07 09:00) 18 (DEC 07 09:00) 20 (DEC 07 07:59) SBP 111 (DEC 07 09:00) 111 (DEC 07 09:00) 118 (DEC 07 07:59) DBP 61 (DEC 07 09:00) 61 (DEC 07 09:00) 67 (DEC 07 07:59) MAP 73 (DEC 07 09:00) 73 (DEC 07 09:00) 86 (DEC 07:59) SpO2 97 (DEC 07:00) 97 (DEC 07:59) 97 (DEC 07 07:59) GEN: Alert, awake, NAD, resting in pre-op bay Neck: supple, no thyromegaly HEENT: NCAT, no icterus, no thrush. Nares patent. CV: S1S2, no murmur. No LE edema RESP: CTAB, NL. no wheezes/rhonchi ABD: soft, NTND, +BS SKIN: no rashes on inspection and palpation to visible skin NEURO: A&O x 3, CN grossly intact. No focal deficits. MSK: Generalized weakness. No calf tenderness. No joint edema, erythema. Data: Labs Most Recent Last 28 days CBC Results-Most Recent Last 28 Days Event Name Event Result Date/Time WBC 10 K/uL 11/19/20 11:14:00 RBC 4.58 Million/uL 11/19/20 11:14:00 Hgb 13.2 g/dL 11/19/20 11:14:00 Hct 39.9 % 11/19/20 11:14:00 MCV 87.1 fL 11/19/20 11:14:00 MCH 28.8 pg 11/19/20 11:14:00 MCHC 33.1 Gram/dL 11/19/20 11:14:00 Platelet Count 303 K/uL 11/19/20 11:14:00 MPV 10.1 fL 11/19/20 11:14:00 RDW 13.3 % 11/19/20 11:14:00 Slide Review No 11/19/20 11:14:00 BMP Results (Most Recent Last 28 Days) Event Name Event Result Date/Time Sodium Level 139 mmol/L 11/19/20 11:14:00 Potassium Level 3.6 mmol/L 11/19/20 11:14:00 Chloride Level 106 mmol/L 11/19/20 11:14:00 Carbon Dioxide Level 26 mmol/L 11/19/20 11:14:00 Anion Gap 11 11/19/20 11:14:00 Glucose Level 97 mg/dL 11/19/20 11:14:00 Blood Urea Nitrogen 17 mg/dL 11/19/20 11:14:00 Creatinine Level 0.8 mg/dL 11/19/20 11:14:00 eGFR >60 11/19/20 11:14:00 eGFR NonAfrican >60 11/19/20 11:14:00 Bun/Creatinine 21.2 High 11/19/20 11:14:00 Calcium Level 10 mg/dL 11/19/20 11:14:00 Other Lab Results (Most Recent Last 28 Days) Event Name Event Result Date/Time PT 10.7 Second(s) 11/19/20 11:14:00 INR 1 11/19/20 11:14:00 PTT 28.5 Second(s) 11/19/20 11:14:00 Impression: advanced OA right knee -awaiting right total knee arthroplasty At risk for sleep apnea Diverticulitis DM (diabetes mellitus), type 2 GERD HTN Hypothyroidism IBS Stomach cancer Plan: Monitor HTN; add PRN's, hold parameters bowel regimen incentive spirometer PT/OT DVT prophylaxis: ASA, SCD's Pain management deferred to surgeon will monitor hb/hct daily for signs of ongoing acute blood loss will monitor bun/cr daily for signs of dehydration, prerenal azotemia will monitor for signs/symptoms of post-op wound infection or hospital acquired infectious process accuchecks qac, qhs for blood glucose monitoring; will hold oral diabetic agents while hospitalized. will use short acting insulin for correction. may add long-acting insulin for persistent hyperglycemia resume outpatient medication regimen for comorbidities Scribed by Kenia Mobley Assessment and plan made in conjunction with Dr. Oneal. documented in this encounter Plan of Treatment Not on file documented as of this encounter Visit Diagnoses Not on filedocumented in this encounter
--- OUTSIDE RECORDS SUMMARY | 2024-08-17 08:13 | XMS_ITS | Encounter Summary ---
Author Organization [employer] ([place], [place], [place], [place]) Address [address] [place] [address] Care Team Providers Care Photographer Name Role Phone Unavailable Primary Care Provider Unavailabl e Encounter Details Date Type Department Care Team (Late st Contact Info) Description 12/07/2020 Transcribed Document [facility] Radiology 1 [place] [address] Gisele Quinteros MD [facility] [place] [place] [address] Social History Tobacco Use Types Packs/Day Years Used Date Smoking Tobacco: Never Assessed Comments Unknown Sex and Gender Information Value Date Recorded Sex Assigned at Female 08/10/2021 7:43 PM CDT Legal Sex Female 7:43 PM CDT Gender Identity Female 08/10/2021 7:43 PM CDT Sexual Orientation Not on file documented as of this encounter Miscellaneous Notes * Cerner Conversion Note - Gisele Quinteros MD - 12/07/2020 12:24 PM EDT Patient: LESLIE MARTÍNEZ Age: 65 Years Sex: Female : 1955 *Operation Right total knee arthroplasty Indication for Surgery The patient has end-stage osteoarthritis of the above-mentioned knee. They have otherwise failed conservative measures and now present for total knee arthroplasty. The risks benefits and alternatives have been explained to the patient in detail and they have voiced their agreement. *Preoperative Diagnosis Osteoarthritis right knee *Postoperative Diagnosis Osteoarthritis right knee *Surgeon(s) Surgeon: Aldair Refrigeration Manager: Moisés Taylor CSA *Procedure Narrative Patient identified in the preoperative holding and appropriate lower extremity was marked. Patient was then transferred to the operating theater, general anesthesia was induced by attending Anesthesia staff. Patient was given appropriate preop antibiotic prophylaxis as well as 1 g intravenous tranexamic acid. Tourniquet was placed in the proximal aspect of the thigh,. Leg prepped and draped in usual sterile fashion. Time-out was performed, appropriate patient and operative extremity were confirmed. Leg was exsanguinated with an Esmarch bandage, tourniquet inflated to 100 mmHg above the patient's systolic blood pressure. Standard midline incision and medial parapatellar arthrotomy were performed. Standard medial release. Synovium, fat pad, and other soft tissues were resected. Osteophytes removed from the periphery of the femur as well as the intercondylar notch. The ACL and PCL were resected. Next, distal femoral motor coach tour operator hole was drilled and the intramedullary guide lyudmila was placed and pinned. Distal femur was cut. Next, proximal tibia was exposed. The extramedullary guide placed perpendicular to the mechanical axis and the tibia set to 3 degrees of slope. Appropriate resection level was set and the proximal tibia was cut. We then proceeded to balance the knee in extension with releases as noted below. Next, knee was flexed up. Epicondylar axis marked with a Bovie. Femur was sized. The [employer] gap electric detector operator was placed and tensed. Posterior condyle resection as noted above. Drill holes made through the electric detector operator and the appropriately sized four-in-one block placed in those holes. Anterior, posterior, and chamfer cuts were then made. Balance rechecked at 90 and 0 degrees, both of which were appropriate. The knee flexed 90 degrees, laminar spreaders were placed. Meniscus and posterior condylar osteophytes were removed. The posterior capsule, and collateral ligaments were then infiltrated with a pain cocktail. Next, the proximal tibia was exposed. and sized. The tibial guide was pinned in the appropriate amount of external rotation centered over the medial third of the tibial tubercle. The keel was drilled and punched. Trials were placed, overhanging osteophytes were removed. The construct was tested for stability, which was found to be excellent throughout range of motion. Next, patella was everted, measured, and resected. Lug holes drilled, trial button placed. Tracking was assessed. Lateral release performed at this point if necessary. All remaining trials were removed. Sclerotic bone was perforated with a drill. Exposed bony ends were thoroughly irrigated and dried. Cementation of final components took place in a single stage using high viscosity Simplex cement. Base plate was irrigated, and the final polyethylene insert was impacted into place. Locking mechanism was engaged. Knee was held in place until complete cement curing.. Following complete cement curing, the wound was thoroughly irrigated with dilute Betadine lavage and normal saline. 1 g vancomycin powder placed in the wound. The arthrotomy closed with number #1 Stratafix. 2 g of topical tranexamic acid was then injected into the joint. Tourniquet was let down at this point. Bleeding controlled with electrocautery. Skin closed in layers with Vicryl, Stratafix, and Dermabond. Wound was covered with Aquacel dressing. Next, drapes were removed. Patient carefully transferred to stretcher. Compression stocking and Cryo/Cuff placed in the operative extremity. The patient was then extubated without incident, and taken to PACU in stable condition. All instruments, sponge, needle counts correct at the case end of the case. Drains/Packs Used None Anesthesia General *Estimated Blood Loss 50 cc *Findings Abx: 2g Ancef Implants: Gopal Persona femoral component: 9 narrow CR Gopal Persona tibial baseplate: D Tibial insert: 10 mm MC Patellar button: 32 mm symmetric Patellar preparation: reamed Patellar button position: medialized Pre op deformity: 6 degrees varus Correctable: yes Flexion contracture: none Distal femoral cut: 5 deg, 9 mm Proximal tibial cut: 10 mm off lateral side Releases in extension: Deep MCL, PM capsule, PM tibial osteophyte Initial extension gap: 19 mm Posterior condylar resection: 19 mm Pre-reconstructed patellar thickness: 24 mm Post-reconstructed patellar thickness: 24 mm Stability: 0- 0 mm 20- 0 mm 90-1 mm lateral Patellar tracking: normal Lateral release: no ROM with capsule closed: 0-120 Tourniquet pressure: 200 mmHg Tourniquet time: 51 min Other: none *Specimen(s) Bone to pathology Complications None Technique Cemented Gopal medial congruent TKA Date of Service No qualifying data available. documented in this encounter Plan of Treatment Not on file documented as of this encounter Visit Diagnoses Not on filedocumented in this encounter
--- OUTSIDE RECORDS SUMMARY | 2024-08-17 08:13 | XMS_ITS | Encounter Summary ---
Author Organization [employer] ([place], [place], [place], [place]) Address [address] [place] [address] Care Team Providers Care Funds Transfer Clerk Name Role Phone Unavailable Primary Care Provider Unavailabl e Encounter Details Date Type Department Care Team (Late st Contact Info) Description 04/12/2021 Transcribed Document [facility] [place] [facility] [place] [address] ProviderJason MD [address] [place] [address] Social History Tobacco Use Types [...] Cerner Conversion Note - Jason ProviderMD - 04/12/2021 9:01 AM GROMMET WORKER [facility] Main OR Preop Summary Primary Physician: MARLEY CLARK MD-ORT Finalized Date/Time: 04/12/21 14:13:14 Pt. Name: LESLIE MARTÍNEZ /Sex: 1955 Female Med Rec #: [id number] Physician: MARLEY CLARK MD-ORT Financial #: [id number] Pt. Type: O Room/Bed: 639/1 Admit/Disch: 04/12/21 06:58:00 - Institution: [facility] PreOp Case Times Entry 1 In Preop 04/12/21 06:35:00 Ready for Holding n/a Room Patient Ready for 04/12/21 07:49:00 Surgery Patient Out of Preop 04/12/21 08:31:00 Patient Out of n/a Holding Room Last Modified By: Marisol Hernández Rn 04/12/21 14:13:13 [facility] PreOp Case Times Audit 04/12/21 14:13:13 Inspector Watch Assembly: LILIYA Modifier: MFWARD <+> 1 Patient Out of Preop 04/12/21 07:49:59 Inspector Watch Assembly: CONY Modifier: MFWARD <+> 1 Patient Ready for Surgery Finalized By: Marisol Hernández Rn Document Signatures Signed By: Marisol Hernández Rn 04/12/21 14:13 documented in this encounter Plan of Treatment Not on file documented as of this encounter Visit Diagnoses Not on filedocumented in this encounter
--- OUTSIDE RECORDS SUMMARY | 2024-08-17 08:13 | XMS_ITS | Encounter Summary ---
Author Organization [employer] ([place], [place], [place], [place]) Address [address] [place] [address] Care Team Providers Care Education Trainer Name Role Phone Unavailable Primary Care Provider Unavailabl e Encounter Details Date Type Department Care Team (Late st Contact Info) Description 12/07/2020 Transcribed Document [facility] Family Medicine [facility] [place] [address] ProviderJason MD [address] [place] [address] Social History Tobacco Use Types [...] Conversion Note - Jason ProviderMD - 12/07/2020 10:22 AM CDT [facility] Main OR Preop Summary Primary Physician: MARLEY CLARK MD-ORT Finalized Date/Time: 12/07/20 16:21:55 Pt. Name: LESLIE MARTÍNEZ /Sex: 1955 Female Med Rec #: [id number] Physician: MARLEY CLARK MD-ORT Financial #: [id number] Pt. Type: O Room/Bed: 637/1 Admit/Disch: 12/07/20 05:53:00 - Institution: [facility] PreOp Case Times Entry 1 In Preop 12/07/20 07:27:00 Ready for Holding n/a Room Patient Ready for 10/25/21 09:02:00 Surgery Patient Out of Preop 12/07/20 09:40:00 Patient Out of n/a Holding Room Last Modified By: Maryuri Jackson RN 12/07/20 16:21:52 [facility] PreOp Case Times Audit 12/07/20 16:21:52 Active Directory Systems Administrator: CONY Modifier: [id number] <+> 1 Patient Out of Preop 12/07/20 09:09:47 Active Directory Systems Administrator: CONY Modifier: CONY <+> 1 Patient Ready for Surgery Finalized By: Maryuri Jackson, RN Document Signatures Signed By: Maryuri Jackson RN 12/07/20 16:21 Electronically signed by [facility] Conversion Transition Of Care Specialist Cerner at 06/03/2022 8:52 AM CDT documented in this encounter Plan of Treatment Not on file documented as of this encounter Visit Diagnoses Not on filedocumented in this encounter
--- OUTSIDE RECORDS SUMMARY | 2024-08-17 08:13 | XMS_ITS | Encounter Summary ---
Author Organization [employer] ([place], [place], [place], [place]) Address [address] [place] [address] Care Team Providers Care Profiling Machine Setup Operator Name Role Phone Unavailable Primary Care Provider Unavailabl e Encounter Details Date Type Department Care Team (Late st Contact Info) Description 04/12/2021 Transcribed Document [facility] [place] [facility] [place] [address] ProviderJason MD [address] [place] [address] Social History Tobacco Use Types Packs/Day [...] Cerner Conversion Note - Historical ProviderMD - 04/12/2021 2:01 PM EXCEL VBA DEVELOPER Patient: LESLIE MARTÍNEZ Age: 65 Years Sex: Female : 1955 Chief Complaint L knee OA Primary Care Provider RAYMUNDO SNYDER (REF), -[facility] History of Present Illness See 5-year-old female with a history of hypertension, hyperlipidemia, hypothyroidism, type 2 diabetes presents as an outpatient for a left total knee arthroplasty. She tolerated procedure well and I saw her in PACU. She complains of pain however is alert and oriented. Denies any other acute complaints. Review of Systems Constitutional: [No fevers, chills, sweats] Eye: [No recent visual problems] ENMT: [No ear pain, nasal congestion, sore throat] Respiratory: [No shortness of breath, cough] Cardiovascular: [No Chest pain, palpitations, syncope] Gastrointestinal: [No nausea, vomiting, diarrhea] Genitourinary: [No hematuria] Vital Signs T: 36.4 ??C TMIN: 36.1 ??C TMAX: 37 ??C HR: 73(Monitored) RR: 17 BP: 110/57 BP: 157/81(Sitting) BP: 133/74(Standing) BP: 110/57(Supine) SpO2: 96% HT: 160.02 cm WT: 102.73 kg BMI: 40.1 Oxygen Settings (Last) Oxygen Therapy Mode: Nasal cannula (04/12/21 11:53:00) Oxygen Flow Rate: 2 Liter/Min (04/12/21 11:53:00) Physical Exam General: [alert , well nourished, no acute distress ] Neurologic: [awake and alert oriented x3 , cranial nerves 2-12 intact _ , _ no focal deficit , normal sensation _ ] Eye: [pupils equal round and reactive , extra ocular movements intact , normal conjunctiva ] HENT: [normocephalic,clear tympanic membranes , normal hearing, moist oral mucosa ,no scleral icterus, no sinus tenderness ] Neck: [supple , non-tender, no carotid bruits, no jugular venous distension , no lymphadenopathy ] Lungs: [ non labored respiration _ , equal breath sounds, _ no wheezing _ , no rhonchi , no rales , ON NASAL CANNULA O2 ] Heart: [normal rate, regular rhythm, _ no murmur _ , no gallop, no edema ] Abdomen: [soft non-tender _ , no guarding , non-distended , normal bowel sounds , no masses] MSkeletal: [limited ROM, no tenderness or swelling ]. Skin: [skin is warm , dry , appropriate for ethnicity , no rashes , _] Psychiatric: [cooperative , appropriate mood and affect] Assessment/Plan Left knee osteoarthritis status post left knee arthroplasty Hypertension Hyperlipidemia Type 2 diabetes Hypothyroidism GERD Plan: ???Pain control and DVT prophylaxis per orthopedic surgery ???Resume home medication. Hold Metformin while in the hospital and utilize sliding scale insulin. Monitor glucose ???Check CBC and BMP in the morning ???PT/OT FEN: Normal saline, monitor and replace, diabetic/cardiac DVT PPx: SCDs, ASA GI PPx: Protonix Code: Full VTE Prophylaxis - Medical Sequential Compression Device Start: 04/12/21 11:53:00 EST, Bilateral, Length: Knee High, Continuous Order (MARLEY CLARK) Sequential Compression Device Start: 04/12/21 6:58:00 EST, Bilateral, Length: Knee High, Continuous Order (EDUARDO MARLEY) Problem List/Past Medical History Ongoing Arthritis At risk for sleep apnea Back pain Diverticulitis DM (diabetes mellitus), type 2 GERD (gastroesophageal reflux disease) HTN (hypertension) Hypothyroidism IBS (irritable bowel syndrome) Stomach cancer Historical No qualifying data Procedure/Surgical History Anal fissure, bilateral meniscus repair, Cholecystectomy, Hysterectomy, Oral surgery, RIGHT KNEE REPLACEMENT, stomach cancer. SN - Proc - Procedure: Knee Total Joint Replacement (04/12/21 07:59:04) Home Medications (15) Active aspirin 81 mg, Oral, Daily biotin 5000 mcg oral capsule 1 Tab, Oral, Daily bisoprolol 5 mg, Oral, Daily Colace 100 mg oral capsule 100 mg [...] tablet 80 mg = 1 Tab, Oral, At Bedtime meloxicam 15 mg oral tablet 15 mg = 1 Tab, Oral, Daily metformin 500 mg oral tablet 500 mg = 1 Tab, Oral, BID Probiotic Formula oral capsule 2 Cap, Oral, Daily Vitamin B12 1,000 mcg, SubLINgual, Daily Vitamin B12 1000 mcg oral tablet 1,000 mcg = 1 Tab, Oral, Daily Allergies Strawberries tetracycline Social History Alcohol Alcohol Use History Yes. Alcohol Use Frequency Socially. Substance Abuse Drug Use Hx: No. Use in Last 12 Months: No. Drug Use Hx: No. Tobacco Never (less than 100 in lifetime) Smoking Status. Never Smokeless Tobacco Status. Use in Last 12 Months: No. Smoking Status Never smoker. Diagnostic Results No Radiology Results Found Lab Results Test Name Test Result Date/Time Device Comment 1 No action Require 04/12/2021 10:33 EST Device Comment 1 No action Require 04/12/2021 07:48 EST Glucose POC2 151 mg/dL (High) 04/12/2021 10:33 EST Glucose POC2 111 mg/dL (High) 04/12/2021 07:48 EST Hgb 12.0 g/dL 04/12/2021 10:35 EST Additional Documentation Code Status Start: 04/12/21 11:53:00 EST, Full Code, Continuous Order Electronically signed by [facility], [facility] Conversion Transmitter Supervisor Cerner at 06/03/2022 8:42 AM CDT documented in this encounter Plan of Treatment Not on file documented as of this encounter Visit Diagnoses Not on filedocumented in this encounter
--- OUTSIDE RECORDS SUMMARY | 2024-08-17 08:13 | XMS_ITS | Encounter Summary ---
Author Organization [employer] ([place], [place], [place], [place]) Address [address] [place] [address] Care Team Providers Care Registered Nurse First Assistant Name Role Phone Unavailable Primary Care Provider Unavailabl e Encounter Details Date Type Department Care Team (Late st Contact Info) Description 12/07/2020 Transcribed Document [facility] [place], [place] Family Medicine [facility] [place] [address] ProviderJason MD [address] [place] [address] Social History Tobacco Use [...] Notes * Cerner Conversion Note - Jason Jason MD - 12/07/2020 10:22 AM CDT [facility] Main OR IntraOp Summary Primary Physician: MARLEY CLARK MD-ORT Finalized Date/Time: 12/08/20 15:20:49 Pt. Name: LESLIE MURCIA /Sex: 1955 Female Med Rec #: [id number] Physician: MARLEY CLARK MD-ORT Financial #: [id number] Pt. Type: O Room/Bed: 637/1 Admit/Disch: 12/07/20 05:53:00 - Institution: [facility] IntraOp Case Attendance Entry 1 Entry 2 Entry 3 Case Attendee MARLEY CLARK RHYNE, HEATHER, MD-SELAM RON, FLORENCIO SOLOMON ECOLOGY TEACHER, ENGRAVED ROLLER INSPECTOR Role Performed Surgeon/Proceduralist, Anesthesiologist of ENGRAVED ROLLER INSPECTOR/Nurse Technical Cable Jointer First Record Time In 12/07/20 09:46:00 12/07/20 09:46:00 12/07/20 09:46:00 Time Out 12/07/20 11:44:00 12/07/20 11:44:00 12/07/20 11:44:00 Procedure Knee Total Joint Knee Total Joint Knee Total Joint Replacement(Right) Replacement(Right) Replacement(Right) Other Attendee Superficial Wound Closed By: Last Modified By: Jazlyn Medeiros Rn Compton, Tracy R, Jazlyn Donovan, Allyn 12/07/20 12:04:09 12/07/20 12:04:09 12/07/20 12:04:09 Entry 4 Entry 5 Entry 6 Case Attendee AZALIA KAPOOR CSA Compton, Tracy R, Nils Skelton, Senior Software Manager Role Performed Billiard Parlor Manager, First Electrical Fitter, First Scrub, First Time In 12/07/20 09:46:00 12/07/20 09:46:00 12/07/20 09:46:00 Time Out 12/07/20 11:44:00 12/07/20 11:44:00 12/07/20 11:44:00 Procedure Knee Total Joint Knee Total Joint Knee Total Joint Replacement(Right) Replacement(Right) Replacement(Right) Other Attendee Superficial Wound Closed By: Last Modified By: Jazlyn Medeiros Rn Compton, Tracy R, Jazlyn Donovan, Allyn 12/07/20 12:04:09 12/07/20 12:04:09 12/07/20 12:04:09 Entry 7 Entry 8 Entry 9 Case Attendee OTHER, ATTENDEE YARIEL AVENDANO, Khadar Leon, Customer Sales Consultant Role Performed Vendor Electrical Fitter, Second Scrub, First Time In 12/07/20 09:46:00 12/07/20 09:46:00 12/07/20 09:46:00 Time Out 12/07/20 11:44:00 12/07/20 11:44:00 12/07/20 11:44:00 Procedure Knee Total Joint Knee Total Joint Knee Total Joint Replacement(Right) Replacement(Right) Replacement(Right) Other Attendee RK BRIDGES LUNCH RELIEF Superficial Wound Closed By: Last Modified By: Jazlyn Medeiros Rn Compton, Tracy R, Jazlyn Donovan Rn 12/07/20 12:04:09 12/07/20 12:04:09 12/07/20 12:04:09 [facility] IntraOp Case Attendance Audit 12/07/20 12:04:09 [employer] Golden Gate Developer: [id number] Modifier: [id number] <+> Time Out 1 <*> Procedure Knee Total Joint Replacement(Right) 2 <+> Time Out 2 <*> Procedure Knee Total Joint Replacement(Right) 3 <+> Time Out 3 <*> Procedure Knee Total Joint Replacement(Right) 4 <+> Time Out 4 <*> Procedure Knee Total Joint Replacement(Right) 5 <+> Time Out 5 <*> Procedure Knee Total Joint Replacement(Right) 6 <+> Time Out 6 <*> Procedure Knee Total Joint Replacement(Right) 7 <+> Time Out 7 <*> Procedure Knee Total Joint Replacement(Right) 8 <+> Time Out 8 <*> Procedure Knee Total Joint Replacement(Right) 9 <+> Time In 9 <+> Time Out 9 <*> Procedure Knee Total Joint Replacement(Right) 12/07/20 11:27:59 Java Golden Gate Developer: [id number] Modifier: [id number] <*> Procedure Knee Total Joint Replacement(Right) 2 <*> Procedure Knee Total Joint Replacement(Right) 3 <*> Procedure Knee Total Joint Replacement(Right) 4 <*> Procedure Knee Total Joint Replacement(Right) 5 <*> Procedure Knee Total Joint Replacement(Right) 6 <*> Procedure Knee Total Joint Replacement(Right) 7 <*> Procedure Knee Total Joint Replacement(Right) 8 <+> Time In 8 <*> Procedure Knee Total Joint Replacement(Right) <+> 9 Case Attendee <+> 9 Role Performed <+> 9 Procedure <+> 9 Other Attendee 12/07/20 11:08:10 Java Golden Gate Developer: [id number] Modifier: [id number] <*> Procedure Knee Total Joint Replacement(Right) 2 <*> Procedure Knee Total Joint Replacement(Right) 3 <*> Procedure Knee Total Joint Replacement(Right) 4 <*> Procedure Knee Total Joint Replacement(Right) 5 <*> Procedure Knee Total Joint Replacement(Right) 6 <*> Procedure Knee Total Joint Replacement(Right) 7 <+> Time In 7 <*> Procedure Knee Total Joint Replacement(Right) <+> 8 Case Attendee <+> 8 Role Performed <+> 8 Procedure 12/07/20 10:15:58 Java Golden Gate Developer: [id number] Modifier: [id number] <+> Time In 1 <*> Procedure Knee Total Joint Replacement(Right) 2 <+> Time In 2 <*> Procedure Knee Total Joint Replacement(Right) 3 <+> Time In 3 <*> Procedure Knee Total Joint Replacement(Right) 4 <+> Time In 4 <*> Procedure Knee Total Joint Replacement(Right) 5 <+> Time In 5 <*> Procedure Knee Total Joint Replacement(Right) 6 <+> Time In 6 <*> Procedure Knee Total Joint Replacement(Right) <+> 7 Case Attendee <+> 7 Role Performed <+> 7 Procedure <+> 7 Other Attendee 12/07/20 08:11:26 Java Golden Gate Developer: [id number] Modifier: [id number] <+> 1 Procedure 2 <*> Procedure Knee Total Joint Replacement(Right) 3 <*> Procedure Knee Total Joint Replacement(Right) 4 <*> Procedure Knee Total Joint Replacement(Right) 5 <*> Procedure Knee Total Joint Replacement(Right) 6 <*> Procedure Knee Total Joint Replacement(Right) [facility] IntraOp Case Times Entry 1 Patient In Room Time 12/07/20 09:46:00 Out Room Time 12/07/20 11:44:00 Anesthesia Start Time 12/07/20 09:46:00 Stop Time 12/07/20 11:44:00 Surgery / Procedure Times Start Time 12/07/20 10:22:00 Stop Time 12/07/20 11:34:00 Last Modified By: Jazlyn Medeiros Rn 12/07/20 12:04:01 [facility] IntraOp Case Times Audit 12/07/20 12:04:01 Java Golden Gate Developer: [id number] Modifier: [id number] <+> 1 Out Room Time <+> 1 Stop Time <+> 1 Stop Time 12/07/20 10:22:32 Java Golden Gate Developer: [id number] Modifier: [id number] <+> 1 Start Time [facility] IntraOp Cautery Entry 1 ESU Identification Cautery Type Monopolar ESU ID Number [id number] ID Type Hospital Number Cautery Settings Cut Setting 50 Coag Setting 50 ESU Grounding Pad Ground Pad Type Reusable electrode pad Grounding Pad Type MEGADYNE PAD Comment Grounding Pad Site Other Grounding Pad Site MEGADYNE PAD Comment Grounding Pad Jazlyn Medeiros Rn Applied By Grounding Pad Site Warm, Dry, Intact Skin Condition Before Cautery Grounding Pad Site Unchanged Skin Condition After Cautery Last Modified By: Jazlyn Medeiros Rn 12/07/20 08:07:20 [facility] IntraOp Communication Entry 1 Entry 2 Communication To Family/Significant other Family/Significant other Comment CLOSING Communication By Jazlyn Medeiros Rn TAYLOR, MELISSA A, RN Date and Time 12/07/20 10:26:00 12/07/20 11:19:00 Last Modified By: Jazlyn Medeiros Rn Compton, Tracy R, Rn 12/07/20 10:26:11 12/07/20 11:19:07 [facility] IntraOp Communication Audit 12/07/20 11:19:07 Java Golden Gate Developer: [id number] Modifier: [id number] <+> 2 Communication By <+> 2 Date and Time <+> 2 Communication To <+> 2 Comment [facility] IntraOp Counts Verification Entry 1 Procedure Knee Total Joint Replacement(Right) Count Info Count Type Sponge, Sharps Counts Verification Baseline/pre-procedure Sequence Count Results Not Applicable Counts Performed By Count Performed By Nils Patterson, Scrub (Scrub) Tech Count Performed By Jazlyn Medeiros Rn (RN) Last Modified By: Jazlyn Medeiros Rn 12/07/20 08:07:34 [facility] IntraOp Counts Final Entry 1 Procedure Knee Total Joint Replacement(Right) Final Count Info Count Type Sponge, Sharps Counts Verification Skin Closure/end of Sequence procedure Count Results Correct, surgeon notified Counts Performed By Count Performed By Khadar Aguilar, Surgical (Scrub) Barge Worker Count Performed By YARIEL AVENDANO RN (RN) Last Modified By: Jazlyn Medeiros Rn 12/07/20 11:28:06 [facility] IntraOp Counts Final Audit 12/07/20 11:28:06 [employer] Golden Gate Developer: [id number] Modifier: [id number] 1 <*> Procedure Knee Total Joint Replacement(Right) 1 <+> Count Performed By (Scrub) [facility] IntraOp Cultures and Spec Summary Entry 1 Cultrures and Specimens Specimen Ordered: Yes Test(s) Routine/Path-Lab Requested/Final Disposition Last Modified By: Jazlyn Medeiros Rn 12/07/20 08:07:51 General Comments: A. RIGHT KNEE BONE AND TISSUE [facility] IntraOp Departure from OR Entry 1 Integumentary Assessment Integumentary WDL Assessment WDL Transfer/Handoff Transfer to PACU Phase I Handoff Method Bedside/Face to face, Phone call Post-op Transport Stretcher/Gurney Via Patient Transport PIERRE RON, Accompanied by ECOLOGY TEACHER, RYDER, Jazlyn Medeiros Rn Last Modified By: Jazlyn Medeiros Rn 12/07/20 08:08:01 [facility] IntraOp Dressing and Packing Entry 1 Type Dressing Location OPERATIVE KNEE Wound Dressing Item Occlusive dressing, Skin Closure Glue, Other Applied By AZALIA KAPOOR CSA Other Comments AQUACEL AG, KNEE WRAP, BONE FOAM Last Modified By: Jazlyn Medeiros Rn 12/07/20 08:08:07 [facility] IntraOp Fire Risk Assessment Entry 1 Fire Info Surgical Site or 0- No Incision Above the Xyphoid Open O2 Source 0- No (Mask or Cannula) Available Ignition 1- Yes (ESU, Laser, Light Source) Fire Risk 1 Assessment Score Fire Score Fire Risk Yes Assessment Complete Fire Risk Jazlyn Medeiros Rn Assessment Verified By Fire Risk 12/07/20 09:22:00 Assessment Verified Date/Time Fire Risk Standard Fire Yes Safety Precautions Followed Last Modified By: Jazlyn Medeiros Rn 12/07/20 09:22:52 [facility] IntraOp General Case Iron Cutter 1 Case Information OR OR 04 [facility] Case Level 1 Room Verified Yes Wound Class I - Clean Specialty Orthopedic Anesthesia Type General ASA Class 3 Diagnosis Preop Diagnosis RIGHT KNEE OSTEOARTHRITIS Postop Same As Preop Yes Postop Diagnosis RIGHT KNEE OSTEOARTHRITIS Last Modified By: Jazlyn Medeiros Rn 12/07/20 12:05:03 [facility] IntraOp General Case Data Audit 12/07/20 12:05:03 [employer] Golden Gate Developer: [id number] Modifier: [id number] 1 <*> ASA Class 2 [facility] IntraOp Implant Log Entry 1 Entry 2 Entry 3 Type Implant (Synthetic) Implant (Synthetic) Implant (Synthetic) Implant Log Implant Type Bone Cement Hardware Hardware Tissue Implant Type Implant CEMENT BONE SMPLX PSN ASF MC 10MM VE FEM PERSONA CRU SZ9 Identification [id number] Description Implant Quantity 2 1 1 Implant Site RIGHT KNEE RIGHT KNEE RIGHT KNEE Implant Identification Model Number Implant Identification Serial Number Implant [id number] Identification Lot Number Implant Lizbeth:Lizbeth Gopal:Gopal Us Gopal:Gopal Us Identification Orthopaedics Engraver Pantograph Name: Implant [id number] Identification Catalog Number Implant Size Implant Has an Yes Yes Yes Expiration Date Implant Expiration 05/13/22 03/22/25 01/20/30 Date Wasted Radioactive Material Time Implanted Tissue Implant Continue for Tissue Implant Documentation Tissue Identification Number Graft Prep Per Engraver Pantograph Instructions: Tissue Preparation Method: Reconstitution Solution: Reconstitution Solution Lot Number Reconstitution Solution Expiration Date: Thawing Solution Thawing Solution Lot Number Thawing Solution Expiration Date Preparation Materials, Other Preparation Materials, Other Lot Number Preparation Materials, Other Expiration Date Tissue Prepared/Processed By Engraver Pantograph Paperwork Completed Implant Type Comment Last Modified By: Jazlyn Medeiros Rn Compton, Tracy R, Rn Compton, Tracy R, Rn 12/07/20 11:02:40 12/07/20 11:07:34 12/07/20 11:07:34 Entry 4 Entry 5 Type Implant (Synthetic) Implant (Synthetic) Implant Log Implant Type Hardware Hardware Tissue Implant Type Implant TIB STEM SZ D [id number] PATELLA CEMENTED Identification [id number] Description Implant Quantity 1 1 Implant Site RIGHT KNEE RIGHT KNEE Implant Identification Model Number Implant Identification Serial Number Implant [id number] Identification Lot Number Implant Gopal:Gopal Us Gopal:Gopal Us Identification Engraver Pantograph Name: Implant [id number] Identification Catalog Number Implant Size Implant Has an Yes Yes Expiration Date Implant Expiration 06/30/30 10/11/28 Date Wasted Radioactive Material Time Implanted Tissue Implant Continue for Tissue Implant Documentation Tissue Identification Number Graft Prep Per Engraver Pantograph Instructions: Tissue Preparation Method: Reconstitution Solution: Reconstitution Solution Lot Number Reconstitution Solution Expiration Date: Thawing Solution Thawing Solution Lot Number Thawing Solution Expiration Date Preparation Materials, Other Preparation Materials, Other Lot Number Preparation Materials, Other Expiration Date Tissue Prepared/Processed By Engraver Pantograph Paperwork Completed Implant Type Comment Last Modified By: Jazlyn Medeiros Rn Compton, Tracy R, Rn 12/07/20 11:07:34 12/07/20 11:07:34 [facility] IntraOp Implant Log Audit 12/07/20 11:07:34 [employer] Golden Gate Developer: [id number] Modifier: [id number] <+> 2 Implant Identification Description <+> 2 Implant Identification Lot Number <+> 2 Implant Identification Engraver Pantograph Name: <+> 2 Implant Expiration Date <+> 2 Implant Site <+> 2 Implant Quantity <+> 2 Implant Identification Catalog Number <+> 2 Implant Type <+> 2 Implant Has an Expiration Date <+> 2 Type <+> 3 Implant Identification Description <+> 3 Implant Identification Lot Number <+> 3 Implant Identification Engraver Pantograph Name: <+> 3 Implant Expiration Date <+> 3 Implant Site <+> 3 Implant Quantity <+> 3 Implant Identification Catalog Number <+> 3 Implant Type <+> 3 Implant Has an Expiration Date <+> 3 Type <+> 4 Implant Identification Description <+> 4 Implant Identification Lot Number <+> 4 Implant Identification Engraver Pantograph Name: <+> 4 Implant Expiration Date <+> 4 Implant Site <+> 4 Implant Quantity <+> 4 Implant Identification Catalog Number <+> 4 Implant Type <+> 4 Implant Has an Expiration Date <+> 4 Type <+> 5 Implant Identification Description <+> 5 Implant Identification Lot Number <+> 5 Implant Identification Engraver Pantograph Name: <+> 5 Implant Expiration Date <+> 5 Implant Site <+> 5 Implant Quantity <+> 5 Implant Identification Catalog Number <+> 5 Implant Type <+> 5 Implant Has an Expiration Date <+> 5 Type [facility] IntraOp Intraoperative Assessment Entry 1 Handoff Method Bedside/Face to face, Online nursing summary Valid History / Yes Physical in Chart Preoperative Yes Checklist Reviewed/Evaluated Allergies Reviewed Yes Patient is Latex No Sensitive Isolation Not applicable Precautions Noted Level of WDL Consciousness (WDL = Alert, Oriented to Person, Place, and Time) Skin Assessment No Verified Present Upon IVs Arrival to OR Last Modified By: Jazlyn Medeiros Rn 12/07/20 08:08:38 [facility] IntraOp Intraoperative Equipment Entry 1 Type Equipment Equipment Equipment Slava Suction System ID Number [id number] Setting ON Intraop Monitoring Blood Pressure Non-Invasive BP Device Source Antiembolic Devices Antiembolic Devices Sequential compression device, knee high, Antiembolic hose, knee high Antiembolic Device Left Location Antiembolic Device [id number] ID Number Antiembolic Device SCDS ON AND WORKING Setting PRIOR TO INDUCTION Scopes Photo/Video Documentation Last Modified By: Jazlyn Medeiros Rn 12/07/20 08:09:00 [facility] IntraOp Medication Admin Entry 1 Entry 2 Entry 3 Medication/Irrigant vancomycin 1Gm vial - hydrogen peroxide 16oz ARNOLDO IRR NACL 0.9PCT [id number] - [id number] 2000ML [id number] Combo Med List Time Administered 12/07/20 11:00:00 12/07/20 10:22:00 12/07/20 10:22:00 Route of AT SURGICAL SITE IRRIGATION IRRIGATION Administration Dose Dose 1 Unit of Measure gram Volume Administered By MARLEY CLARK KARTHIKEYAN, THARUN, KARTHIKEYAN, THARUN, MD-ORT YINORT -ORT Procedure Irrigation Irrigant Volume In Irrigant Volume Out Last Modified By: Jazlyn Medeiros Rn Compton, Tracy R, Rn Compton, Tracy R, Rn 12/07/20 12:04:48 12/07/20 12:04:48 12/07/20 10:24:43 Entry 4 Entry 5 Medication/Irrigant TRANEXAMIC ACID DR. CLARK KNEE 1000MG/10 ML INJECTION [id number] Combo Med List Time Administered 12/07/20 11:00:00 12/07/20 11:00:00 Route of TOPICAL INJECTION Administration Dose Dose 2 50 Unit of Measure gram ml Volume Administered By MARLEY CLARK KARTHIKEYAN, THARUN, MD-ORT -ORT Procedure Irrigation Irrigant Volume In Irrigant Volume Out Last Modified By: Jazlyn Medeiros Rn Compton, Tracy R, Rn 12/07/20 12:04:48 12/07/20 12:04:48 [facility] IntraOp Medication Admin Audit 12/07/20 12:04:48 Java Golden Gate Developer: [id number] Modifier: [id number] <*> Medication/Irrigant vancomycin 1Gm vial - [id number] 1 <+> Time Administered 2 <*> Medication/Irrigant hydrogen peroxide 16oz - [id number] 4 <*> Medication/Irrigant TRANEXAMIC ACID 1000MG/10 ML [id number] 4 <+> Time Administered <+> 5 Time Administered 12/07/20 10:24:43 Java Golden Gate Developer: [id number] Modifier: [id number] <*> Medication/Irrigant hydrogen peroxide 16oz - [id number] 2 <+> Time Administered 3 <*> Medication/Irrigant ARNOLDO IRR NACL 0.9PCT 2000ML [id number] 3 <+> Time Administered [facility] IntraOp Patient Positioning Entry 1 Procedure Knee Total Joint Replacement(Right) Body Position Supine Left Arm Position Secured on padded arm board Right Arm Position Secured on padded arm board Left Leg Position Uncrossed, parallel Right Leg Position Held on field Feet Uncrossed Yes Pressure Points Yes Checked Positioning Devices Arm Board, Head Rest, Pad, Arm, Pad, Elbow, Safety Strap, Arm(s), Safety Strap, Chest, Foot Rest Device Position LATERAL POST, POPITEAL SUPPORT FOR FOOTREST Positioned By MARLEY CLARK MD-ORJessica, PIERRE RON APRN, RYDER, Jazlyn Medeiros, Allyn, AZALIA KAPOOR CSA Position Verified Positioning Yes Verified by Anesthesia Positioning Yes Verified by Surgeon Last Modified By: Jazlyn Medeiros Rn 12/07/20 08:10:49 [facility] IntraOp Sign In Entry 1 Patient, Site, Yes Procedure Identified Surgical Consent Yes Confirmed Relevant Surgical Yes Documents Available Surgical Site Yes Marked by person performing procedure Anesthesia Machine Yes Check Completed Medication Checks Yes Completed Allergies Yes Airway Difficult Yes Airway/Aspiration Risk Difficult Yes Airway/Aspiration Intervention Equipment Available Blood Loss Risk Yes Blood Loss Yes Intervention Equipment Prepared and Ready Blood Identifiers Not applicable Verified Per Policy Hypothermia Risk Yes Warming Measures Yes Taken Last Modified By: Jazlyn Medeiros Rn 12/07/20 08:10:59 [facility] IntraOp Sign Out Entry 1 RN Confirmation Surgical Yes Procedure(s) Identified Instrument, Sponge Yes and Sharps Counts Correct/Documented Equipment Problems N/A Documented Specimen Labeled Yes Correctly Urinary Catheter N/A Documented in IView Navarro Patient Yes Recovery Concerns Reviewed with Anesthesia Provider, Surgeon and RN Navarro Patient Yes Management Concerns Reviewed with Anesthesia Provider, Surgeon and RN Safety Checklist Yes Elements Complete? RN Sign Out Jazlyn Medeiros Rn Signature RN Sign Out 12/07/20 12:04:00 Signature Date/Time Plan of Care Outcome - Fire Risk OUTCOME STATEMENT: Goal met Patient is free from injury related to surgical fire Plan of Care Outcome - Pt Positioning OUTCOME STATEMENT: Goal met Absence of signs and symptoms of positioning injury. Plan of Care Outcome - Skin Prep OUTCOME STATEMENT: Goal met Intraoperative care is consistent with measures to prevent infection Plan of Care Outcome - Xray/Images OUTCOME STATEMENT: N/A Absence of observable signs or symptoms of radiation injury Plan of Care Outcome - Counts OUTCOME STATEMENT: Goal met Absence of signs and symptoms of injury related to extraneous objects Last Modified By: Jazlyn Medeiros Rn 12/07/20 12:04:06 [facility] IntraOp Sign Out Audit 12/07/20 12:04:06 Java Golden Gate Developer: [id number] Modifier: [id number] <+> 1 RN Sign Out Signature Date/Time [facility] IntraOp Skin Prep Entry 1 Procedure Knee Total Joint Replacement(Right) Prescribed Yes Pre-Surgical Prep Completed Prep Area OPERATIVE THIGH TO TOES CIRCUMFRENTIALLY Intraop Prep Integumentary WDL Assessment WDL Prep Agents Chlorhexidine gluconate/alcohol, Chloraprep, DuraPrep Prep by Jazlyn Medeiros Rn Hair Removal Methods No hair removal performed Last Modified By: Jazlyn Medeiros Rn 12/07/20 08:11:20 [facility] IntraOp Surgical Procedures Entry 1 Procedure Knee Total Joint Replacement Modifiers Right Additional (RT TOTAL KNEE Procedure ARTHROPLASTY) Description Primary Procedure Yes Primary Surgeon MARLEY CLARK MD-ORT Start 12/07/20 10:22:00 Stop 12/07/20 11:34:00 Anesthesia Type General Specialty Orthopedic Wound Class I - Clean Last Modified By: Jazlyn Medeiros Rn 12/07/20 12:04:07 [facility] IntraOp Surgical Procedures Audit 12/07/20 12:04:07 [employer] Golden Gate Developer: [id number] Modifier: [id number] <+> 1 Stop 12/07/20 11:28:08 [employer] Golden Gate Developer: [id number] Modifier: [id number] <+> 1 Start [facility] IntraOp Temp Regulation Devices Entry 1 Temp Regulation Temperature Forced Air Warming Regulation Device device, Warm blankets Temperature 63325 Regulation Device Serial/Unit Number Temperature Upper body Regulation Site Temperature Device ON Setting Temperature PIERRE RON, Regulation Device ECOLOGY TEACHER, ENGRAVED ROLLER INSPECTOR Applied by Temperature THERMOREGULATON Regulation Comment MEASURES MONITORED AND ADJUSTED BY ANESTHESIA Last Modified By: Jazlyn Medeiros Rn 12/07/20 08:11:43 [facility] IntraOP Time Out Entry 1 Procedure to be Knee Total Joint Performed Replacement(Right) Time Out Time Out Pause Time 12/07/20 10:20:00 All activity Yes suspended (unless life threatening emergency) Team Verbally Correct patient Confirms Information identity, Correct side and site are marked, Consent form is present and accurate, Agreement on the procedure to be done, Correct patient position, Relevant images/results properly labeled/appropriately displayed, Confirm antibiotics have been administered, Confirm the skin prep has dried, Confirm prosthesis/implant/devic e is present, Performed in location of procedure after prepped/draped, Reconcile problems if responses among team members differ Antibiotic Yes Prophylaxis Administered Or In Progress Within the Last 60 Minutes Beta Shahab N/A Administered Venous N/A Thromboembolism Prophylaxis Required Anticipated Critical Events Surgeon None expected Anesthesia Provider None expected Nursing Assures Sterility of instruments, Equipment concerns or issues, Implant Availability Essential Imaging Yes Labeled and Displayed Last Modified By: Jazlyn Medeiros Rn 12/07/20 10:20:59 [facility] IntraOP Time Out Audit 12/07/20 10:20:59 [employer] Golden Gate Developer: [id number] Modifier: [id number] 1 <+> Time Out Pause Time 1 <*> Procedure to be Performed Knee Total Joint Replacement(Right) 12/07/20 10:15:36 [employer] Golden Gate Developer: [id number] Modifier: [id number] 1 <*> Procedure to be Performed Knee Total Joint Replacement(Right) [facility] IntraOp Tourniquet Entry 1 Type Pneumatic Serial/Unit Number [id number] Setting 300 mmHg Pheumatic Yes Tourniquet Checked Per Protocol Size 34 inches Placement Thigh, right upper Skin Protection - Yes Padded Under Cuff Applied By Jazlyn Medeiros Rn Removed By AZALIA KAPOOR CSA Times Start Time 12/07/20 10:21:00 Stop Time 12/07/20 11:27:00 Last Modified By: Jazlyn Medeiros Rn 12/07/20 11:27:28 [facility] IntraOp Tourniquet Audit 12/07/20 11:27:28 [employer] Golden [employer] Developer: [id number] Modifier: [id number] <+> 1 Stop Time 12/07/20 10:22:29 [employer] Golden Gate Developer: [id number] Modifier: [id number] <+> 1 Start Time Case Comments <None> Finalized By: NADIA TAYLOR Document Signatures Signed By: Jazlyn Medeiros Rn 12/07/20 12:05 NADIA TAYLOR 12/08/20 15:20 Unfinalized History Date/Time Username Reason for Unfinalizing Freetext Reason for Unfinalizing 12/08/20 15:17 GLEN Correct Billing documented in this encounter Plan of Treatment Not on file documented as of this encounter Visit Diagnoses Not on filedocumented in this encounter
--- OUTSIDE RECORDS SUMMARY | 2024-08-17 08:13 | XMS_ITS | Encounter Summary ---
Author Organization [employer] ([place], [place], [place], [place]) Address [address] [place] [address] Care Team Providers Care Thread Puller Name Role Phone Unavailable Primary Care Provider Unavailabl e Encounter Details Date Type Department Care Team (Late st Contact Info) Description 12/07/2020 Transcribed Document [facility] [place] [address] [place] [address] ProviderJason MD [address], [place] [id number] Social History Tobacco Use Types Packs/Day Years [...] Conversion Note - Jason ProviderMD - 12/07/2020 2:00 AM CDT Spiritual Care Assessment Entered On: 12/07/2020 8:01 EDT Performed On: 12/07/2020 7:48 EDT by ASYA CUELLO General Information Initial Visit : Yes Referred by : Patient Referral Reason Comment : Pre-surgery visit Ministry Provided to : Patient, Family/Significant other Yazdanism Preference : Amish, Gurpreet ASYA CUELLO - 12/07/2020 8:00 EDT Spiritual Assessment Spiritual Assessment Comment/Summary Points : Provided pre-surgery visit and prayer with patient and . Spirital Assessment Comment/Summary Report : SPIRITUAL ASSESSMENT COMMENT/SUMMARY No qualifying data available. ASYA CUELLO - 12/07/2020 8:00 EDT Interventions Emotional Support : Empathic/Engaged listening, Family/Significant other supported Spiritual and Yazdanism : Prayer shared, Spiritual/Yazdanism support provided ASYA CUELLO 12/07/2020 8:00 EDT documented in this encounter Plan of Treatment Not on file documented as of this encounter Visit Diagnoses Not on filedocumented in this encounter
--- OUTSIDE RECORDS SUMMARY | 2024-08-17 08:13 | XMS_ITS | Encounter Summary ---
Author Organization [employer] ([place], [place], [place], [place]) Address [address] [place] [address] Care Team Providers Care Financial Intern Name Role Phone Unavailable Primary Care Provider Unavailabl e Encounter Details Date Type Department Care Team (Late st Contact Info) Description 12/07/2020 Transcribed Document [facility] [place] Medicine [address] [place] [address] ProviderJason MD [address] [place], [place] [phone] Social History Tobacco Use Types Packs/Day Years [...] 12/07/2020 7:53 EDT by Dano Max PATIENT NUCLEAR TEST TECHNICIAN Phone Call for Consults Consult Phone Call/Page Attempt : Other: Completed 12/07 Dano Max PATIENT NUCLEAR TEST TECHNICIAN - 12/08/2020 8:11 EDT documented in this encounter Plan of Treatment Not on file documented as of this encounter Visit Diagnoses Not on filedocumented in this encounter
--- OUTSIDE RECORDS SUMMARY | 2024-08-17 08:13 | XMS_ITS | Encounter Summary ---
Author Organization [email or web address] ([place], [place], [place], [place]) Address [address] [place] [address] Care Team Providers Care Supervising Film Or Videotape Editor Name Role Phone Unavailable Primary Care Provider Unavailabl e Encounter Details Date Type Department Care Team (Late st Contact Info) Description 12/07/2020 Transcribed Document [facility] [place] [facility] [place] [address] ProviderJason MD [address] [place] [address] Social History Tobacco Use Types [...] Jason ProviderMD - 12/07/2020 10:22 AM CDT [facility] Main OR PACU Summary Primary Physician: MARLEY CLARK MD-ORT Finalized Date/Time: 12/07/20 14:09:17 Pt. Name: LESLIE MARTÍNEZ /Sex: 1955 Female Med Rec #: [id number] Physician: MARLEY CLARK MD-ORT Financial #: [id number] Pt. Type: O Room/Bed: 637/1 Admit/Disch: 12/07/20 05:53:00 - Institution: [facility] Main OR PACU I Case Times Entry 1 In PACU I 12/07/20 11:47:00 Ready for PACU 12/07/20 13:55:00 Discharge Discharge from PACU 12/07/20 13:55:00 I Last Modified By: ROSEANN MURRAY RN 12/07/20 14:09:10 Finalized By: ROSEANN MURRAY, RN Document Signatures Signed By: ROSEANN MURRAY RN 12/07/20 14:09 Electronically signed by Faye [facility] Conversion Stoner Hand Cerner at 06/03/2022 8:53 AM CDT documented in this encounter Plan of Treatment Not on file documented as of this encounter Visit Diagnoses Not on filedocumented in this encounter
--- OUTSIDE RECORDS SUMMARY | 2024-08-17 08:13 | XMS_ITS | Encounter Summary ---
Author Organization [employer] ([place], [place], [place], [place]) Address [address] [place] [address] Care Team Providers Care Pigment Supplier Name Role Phone Unavailable Primary Care Provider Unavailabl e Encounter Details Date Type Department Care Team (Late st Contact Info) Description 12/07/2020 Transcribed Document [facility] [place] [facility] [place] [address] ProviderJason MD [address] [place] [address] Social History Tobacco Use Types Packs/Day [...] Conversion Note - Historical ProviderMD - 12/07/2020 2:54 PM CDT Treatment Intervention, OT Entered On: 12/08/2020 12:25 EDT Performed On: 12/08/2020 11:10 EDT by ENRIQUE NAQVI, OTR/L General Information, OT Visit Type, OT : Treatment Note Patient Orders : Order Date Order Ordering 12/07/2020 12:07 OT Evaluation and Treatment Ordered By: MARLEY CLARK MD-ORT 12/07/2020 12:07 OT Treatment Instructions Ordered By: MARLEY CLARK MD-ORT 12/07/2020 14:54 Occupational Therapy Additional Tx Ordered By: Active Diagnoses : No Qualifying Diagnoses Therapy Diagnosis, OT : Decreased ind in ADL and functional mobility Admission Date : 12/07/2020 05:53 Co-treated by, OT : Physical Therapist Personal Devices : Personal Devices No Devices Recorded Assistive Devices : Assistive Devices No Devices Recorded ENRIQUE NAQVI OTR/Alejandro - 12/08/2020 12:20 EDT General Status Patient Received Status : Supine in bed, Up in chair Treatment Start Time : 12/08/2020 10:44 EDT Patient Left Status : Other: Gym with PT RN/PCT Informed Comment : CHIP alfonsoed tx. Treatment End Time : 12/08/2020 11:10 EDT Treatment Time : 26 Minute(s) ENRIQUE NAQVI OTR/Alejandro - 12/08/2020 12:20 EDT Self Care/Home Management, OT Upper Body Dressing Assist Level, OT : Independent, modified Lower Body Dressing Assist Level, OT : Independent, modified ENRIQUE NAQVI OTR/Alejandro - 12/08/2020 12:20 EDT Functional Mobility Mobility Grid Sit to Stand : Supervision/set-up Chair to Bed : Supervision/set-up Stand to Sit : Supervision/set-up ENRIQUE NAQVI OTR/Alejandro - 12/08/2020 12:20 EDT Plan of Care, OT OT Tx Plan/Goals Established w Patient : Yes ENRIQUE NAQVI OTR/Alejandro - 12/08/2020 12:20 EDT Schedule Hanger Goals, OT Dressing, Lower Body LTG Grid Goal #1 Activity : Dressing, Lower Body Assist : Independent, modified Date to Meet : 12/21/2020 EST Goal Status : Goal met Date Met : 12/08/2020 EDT ENRIQUE NAQVI OTR/Alejandro - 12/08/2020 12:20 EDT Toilet Transfer LTG Grid Goal #1 Activity : Toilet Transfer, Ambulatory Assist : Independent, modified Date to Meet : 12/21/2020 EST Goal Status : Progressing, continue ENRIQUE NAQVI OTR/Alejandro - 12/08/2020 12:20 EDT Bed Mobility/ Bed Transfer LTG Grid Goal #1 Activity : Bed Mobility/Bed Transfer Assist : Independent, complete Date to Meet : 12/21/2020 EST Goal Status : Initial goal ENRIQUE NAQVI OTR/Alejandro - 12/08/2020 12:20 EDT Treatment Note Subjective Comment : Pt was agreeable. Patient's Response to Treatment : Pt tolerated tx well. Additional Objective Information : Pt was found up in a chair upon arrival. Pt was provided and educated on ADL AE including a long handled sponge, long handled shoe horn, school standards coach, sock aid, and leg double corner cutter. Pt dressed fully with Aileen and cueing for proper AE use. Pt ambulated a functional distance, completing practice steps, using a RWx with supervision. Pt was left in the therapy gym with PT. Assessment : Pt is progressing toward goals. Plan for Treatment : Continue OT POC. ENRIQUE NAQVI OTR/L - 12/08/2020 12:20 EDT Pain Assessment Pain Comment : Pt complained of pain in the RLE, no rating given. ENRIQUE NAQVI OTR/L - 12/08/2020 12:20 EDT Image 1 - Images currently included in the form version of this document have not been included in the text rendition version of the form. Anticipated Discharge Needs, OT/PT Anticipated Discharge to : Outpatient rehabilitation ENRIQUE NAQVI OTR/L - 12/08/2020 12:[address] [facility] OT Charges OT Selfcare/Hm Mgmt Ea 15 Min : 1 OT Ther Activities Ea 15 Min : 1 ENRIQUE NAQVI OTR/L - 12/08/2020 12:20 EDT documented in this encounter Plan of Treatment Not on file documented as of this encounter Visit Diagnoses Not on filedocumented in this encounter
--- OUTSIDE RECORDS SUMMARY | 2024-08-17 08:13 | XMS_ITS | Encounter Summary ---
Author Organization [email or web address] ([place], [place], [place], [place]) Address [address] [place] [address] Care Team Providers Care Human Services Care Specialist Name Role Phone Unavailable Primary Care Provider Unavailabl e Encounter Details Date Type Department Care Team (Late st Contact Info) Description 04/12/2021 Transcribed Document [facility] [place] [address] ProviderJason MD [address] [place] [address] Social History Tobacco Use Types Packs/Day [...] Conversion Note - Jason ProviderMD - 04/12/2021 11:53 AM BLENDER SNUFF Evaluation, Physical Therapy Entered On: 04/12/2021 15:41 EST Performed On: 04/12/2021 15:37 EST by KISHA RAYGOZA, PT General Information, PT Visit Type, PT : Initial evaluation Patient Orders : Order Date Order Ordering 04/12/2021 11:53 PT Evaluation and Treatment Ordered By: MARLEY CLARK MD-ORT 04/12/2021 11:53 PT Treatment Instructions Ordered By: MARLEY CLARK MD-ORT 04/12/2021 11:53 PT Treatment Instructions Ordered By: MARLEY CLARK MD-ORT 04/12/2021 11:53 PT Treatment Instructions Ordered By: MARLEY CLARK MD-ORT 04/12/2021 11:53 PT Treatment Instructions Ordered By: MARLEY CLARK MD-ORT 04/12/2021 11:53 PT Treatment Instructions Ordered By: MARLEY CLARK MD-ORJessica Active Diagnoses : No Qualifying Diagnoses Therapy Diagnosis, PT : Aftercare following L TKA Onset of Problem, PT : 04/12/2021 EST Admission Date : 04/12/2021 06:58 Co-treated by, PT : Occupational Therapist Personal Devices : Personal Devices No Devices Recorded Assistive Devices : Assistive Devices No Devices Recorded KISHA RAYGOZA, PT - 04/12/2021 15:37 EST General Status Patient Received Status : Supine in bed Treatment Start Time : 04/12/2021 13:41 EST Patient Left Status : Up in chair, RN/PCT informed, Family/Visitors at bedside, Communication board completed, All needs met and within reach, Other: SCd's, ICE, Bone foam RN/PCT Informed Comment : RN inez and pt consent Treatment End Time : 04/12/2021 13:52 EST Treatment Time : 11 Minute(s) KISHA RAYGOZA, PT - 04/12/2021 15:37 EST History and Environment Living Situation, Therapy : Home Patient Lives With : Spouse Persons Assisting Patient at Home : Spouse Professional Skilled Services : None Persons Providing Information : Patient Home Equipment Therapy, PT : Commode, Walker Commode : Commode, bedside Walker : Walker, front wheel Home Setup : One story Bedroom Location : Main level Bathroom #1 Location : Main level Stairs : Yes Stair Location(s) : Outside Outside Stairs, Number of Steps : 5 Railing Outside : Yes Outside Railing Position : Bilateral KISHA RAYGOZA, PT - 04/12/2021 15:37 EST Prior Level of Function PT GRID Prior LOF Ambulation, Household : Independent Prior LOF Ambulation, Community : Independent Prior LOF Bed Mobility : Independent Prior LOF Toileting : Independent Prior LOF Transfer : Independent KISHA RAYGOZA PT - 04/12/2021 15:37 EST Upper Extremity Right UE Active ROM : WFL Right UE Strength : WFL Left UE Active ROM : WFL Left UE Strength : WFL KISHA RAYGOZA PT - 04/12/2021 15:37 EST Lower Extremity RLE Active ROM : WFL Right LE Strength : WFL LLE Active ROM : Impaired Left LE Strength : Impaired KISHA RAYGOZA, PT - 04/12/2021 15:37 EST Left Lower Extremity Range of Motion Knee Flexion (0-140) Knee Extension (0-0) Active : 97 0 KISHA RAYGOZA, PT - 04/12/2021 15:37 EST KISHA RAYGOZA, PT - 04/12/2021 15:37 EST Functional Mobility Mobility Grid Supine to Sit : Supervision/set-up Sit to Stand : Rehab Minimal assistance Bed to Chair : Rehab Minimal assistance Stand to Sit : Supervision/set-up KISHA RAYGOZA PT - 04/12/2021 15:37 EST Sit to Stand Device : Belt, gait, Walker, front wheel Bed to Chair Device : Belt, gait, Walker, front wheel KISHA RAYGOZA, PT - 04/12/2021 15:37 EST Gait Training/Assessment, PT Weight Bearing Status : As tolerated Gait Assistance Level : Assist, minimal Walking Distance : CGA 15ft x 2 with RWx, no LOB, good stability and use of BUE's on RWx for support. Ambulatory Devices : Gait belt, Walker, front wheel KISHA RAYGOZA, PT - 04/12/2021 15:37 EST Neurological/Sensory Overall Sensory Response : Intact KISHA RAYGOZA, PT - 04/12/2021 15:37 EST Activity Tolerance, PT Activity Comment : No acute complaints KISHA RAYGOZA, PT - 04/12/2021 15:37 EST Cognition Assessment, PT Orientation : Oriented x 4 Attention Assessment : Present KISHA RAYGOZA PT - 04/12/2021 15:37 EST [facility] Topics Physical Therapy Education Grid Bed Mobility Training : Needs reinforcement Gait Training : Needs reinforcement Role of Physical Therapy : Verbalizes understanding Safety : Verbalizes understanding Transfer Training : Needs reinforcement Use of Assistive Device : Needs reinforcement KISHA RAYGOZA, PT - 04/12/2021 15:37 EST Indication Assesessment, PT Physical Therapy Indicated : Yes PT Problem List : Impaired, endurance tolerance, Impaired, gait, Impaired, joint mobility, Impaired, stair mobility, Impaired, standing balance, Impaired, strength, Impaired, transfers Potential Barriers To Therapy : None evident Rehabilitation Potential : Good KISHA RAYGOZA, PT - 04/12/2021 15:37 EST Plan of Care, PT PT Tx Plan/Goals Established w Patient : Yes PT Frequency Rehab : Daily, twice (bid) PT Duration Rehab : Fourteen days PT Treatments Planned : Gait training, Safety education, Stair training, Therapeutic exercises, Transfer training KISHA RAYGOZA, PT - 04/12/2021 15:37 EST [facility] Goals Mobility/Bed Mobility LTG PT Grid Goal #1 Activity : Sit to stand Assist : Supervision or set-up Equipment : Walker, front wheel Date to Meet : 04/26/2021 EDT Goal Status : Intial Goal KISHA RAYGOZA, PT - 04/12/2021 15:37 EST Ambulation LTG Grid Goal #1 Device : Walker, front wheel Distance : 100ft Assist : Supervision or set-up Date to Meet : 04/26/2021 EDT Goal Status : Intial Goal KISHA RAYGOZA, PT - 04/12/2021 15:37 EST Stairs LTG Grid Goal #1 Device : None Number of Steps : 5 Handrail(s) : One handrail Assist : Assist, minimal Date to Meet : 04/26/2021 EDT Goal Status : Intial Goal KISHA RAYGOZA, PT - 04/12/2021 15:37 EST Treatment Note Subjective Comment : Pt agreeable [...] hospital staff present. Additional Objective Information : L knee ROM 0-97 degrees SBA sup-sit CGA sit-stand with RWx CGA gait 15ft x2 to bathroom and back with RWx Assessment : Pt tolerates initial [...] Treatment : BID KISHA RAYGOZA, PT - 04/12/2021 15:37 EST Pain Assessment Pain Scaled Used : 0-10 Pain scale Pain Score Pre-Intervention : 0 Pain Score Post-Intervention. : 0 KISHA RAYGOZA, PT - 04/12/2021 15:37 EST Image 1 - Images currently included in the form version of this document have not been included in the text rendition version of the form. Anticipated Discharge Needs, OT/PT Anticipated Discharge to : Home, with home health, Outpatient rehabilitation Anticipated Home Equipment : None Recommend Continued Therapy at Discharge : Yes KISHA RAYGOZA, PT - 04/12/2021 15:[address] [facility] PT Charges PT Eval Low Complexity : 1 KISHA RAYGOZA, PT - 04/12/2021 15:37 EST Electronically signed by Faye, [facility] Conversion Pillow Filler Cerner at 06/03/2022 8:45 AM CDT documented in this encounter Plan of Treatment Not on file documented as of this encounter Visit Diagnoses Not on filedocumented in this encounter
--- OUTSIDE RECORDS SUMMARY | 2024-08-17 08:13 | XMS_ITS | Encounter Summary ---
Author Organization [employer] ([place], [place], [place], [place]) Address [address] [place] [address] Care Team Providers Care Saw Filer Name Role Phone Unavailable Primary Care Provider Unavailabl e Encounter Details Date Type Department Care Team (Late st Contact Info) Description 04/12/2021 Transcribed Document [facility] [place] [facility] [place] [address] ProviderJason MD [address] [place] [address] Social History Tobacco Use Types [...] - Jason ProviderMD - 04/12/2021 9:01 AM CRUSHING FOREMAN [facility] Main OR PACU Summary Primary Physician: MARLEY CLARK MD-ORT Finalized Date/Time: 04/12/21 12:32:14 Pt. Name: LESLIE MARTÍNEZ /Sex: 1955 Female Med Rec #: [id number] Physician: MARLEY CLARK MD-ORT Financial #: [id number] Pt. Type: O Room/Bed: 639/1 Admit/Disch: 04/12/21 06:58:00 - Institution: [facility] Main OR PACU I Case Times Entry 1 In PACU I 04/12/21 10:19:00 Ready for PACU 04/12/21 11:30:00 Discharge Discharge from PACU 04/12/21 11:48:00 I Last Modified By: JENNI GUEVARA RN 04/12/21 12:31:55 [facility] Main OR PACU Acuity Entry 1 Start Time 04/12/21 11:30:00 Stop Time 04/12/21 11:48:00 Acuity Level [facility] PACU Acuity I Last Modified By: JENNI GUEVARA RN 04/12/21 12:32:12 Finalized By: JENNI GUEVARA, RN Document Signatures Signed By: JENNI GUEVARA RN 04/12/21 12:32 Electronically signed by Faye [facility] Conversion School Psychometrist Cerner at 06/03/2022 8:45 AM CDT documented in this encounter Plan of Treatment Not on file documented as of this encounter Visit Diagnoses Not on filedocumented in this encounter
--- OUTSIDE RECORDS SUMMARY | 2024-08-17 08:13 | XMS_ITS | Encounter Summary ---
Author Organization [employer] ([place], [place], [place], [place]) Address [address] [place] [address] Care Team Providers Care Retail Administrative Assistant Name Role Phone Unavailable Primary Care Provider Unavailabl e Encounter Details Date Type Department Care Team (Late st Contact Info) Description 04/12/2021 Transcribed Document [facility] [place] [facility] [place] [address] ProviderJason MD [address], [place] [id number] Social History Tobacco Use Types Packs/Day Years [...] Conversion Note - Historical ProviderMD - 04/12/2021 11:47 AM TIPPLE GREASER Meds to Bed Enrollment Entered On: 04/13/2021 8:34 EST Performed On: 04/12/2021 11:47 EST by Jessie Phillip RPh Meds to Bed Enrollment Patient Enrollment Decision: : Yes/enroll in meds to bed program Jessie Phillip RPh - 04/13/2021 8:34 EST documented in this encounter Plan of Treatment Not on file documented as of this encounter Visit Diagnoses Not on filedocumented in this encounter
--- OUTSIDE RECORDS SUMMARY | 2024-08-17 08:13 | XMS_ITS | Encounter Summary ---
Author Organization [employer] ([place], [place], [place], [place]) Address [address] [place] [address] Care Team Providers Care Customer Relations Consultant Name Role Phone Unavailable Primary Care Provider Unavailabl e Encounter Details Date Type Department Care Team (Late st Contact Info) Description 12/11/2020 Transcribed Document [facility] [place] [facility] [place] [address] ProviderJason MD [address] [place] [address] Social History Tobacco Use Types Packs/Day [...] Cerner Conversion Note - Historical ProviderMD - 12/11/2020 12:40 PM CDT Discharge Follow Up Phone Call Entered On: 12/11/2020 12:40 EDT Performed On: 12/11/2020 12:40 EDT by America Burroughs RN-Navigator Discharge Follow Up Phone Call Discharge Disposition : Discharge To Care Management: Home/Residential/[facility] or Self Care -01 Post Visit Phone Call History : First call, Left message Provider Follow-Up Post Discharge : Discharge Follow Up GREG WHITTAKER PA-ORT - 10:15 AM Previously Documented Curve Saw Operator Patient Stated Goal : No Patient Stated Goal America Burroughs RN-Navigator - 12/11/2020 12:40 EDT Electronically signed by Faye [facility] Conversion Special Education Secretary Cerner at 06/03/2022 8:43 AM CDT documented in this encounter Plan of Treatment Not on file documented as of this encounter Visit Diagnoses Not on filedocumented in this encounter
--- OUTSIDE RECORDS SUMMARY | 2024-08-17 08:13 | XMS_ITS | Encounter Summary ---
Author Organization [employer] ([place], [place], [place], [place]) Address [address] [place] [address] Care Team Providers Care Media Marketing Director Name Role Phone Unavailable Primary Care Provider Unavailabl e Encounter Details Date Type Department Care Team (Late st Contact Info) Description 03/03/2021 Transcribed Document [facility] [place] [facility] [place] [address] ProviderJason MD [facility] [address] Social History Tobacco Use Types [...] Cerner Conversion Note - Jason ProviderMD - 03/03/2021 12:48 PM FISHING G[employer] WARDEN Orthopedic Nurse Navigator Entered On: 03/03/2021 12:50 EST Performed On: 03/03/2021 12:48 EST by EDUIN SUAZO RN-Ortho Nurse Navigator Orthopedic Nurse Navigator Assessment Attended Joint Academy : Yes Joint AcademyType : Online Joint Academy Date : 11/12/2020 EDT Joint Supervisor Inventory Merchandising Name : Anticipated Discharge Plan : Outpatient PT Anticipated Discharge Plan Comment : Pt confirmed appt for 03/25 at 1030. She would like the same plan as with her RTKA in October, d/c home after overnight stay. to assist at home. OPT from [facility] OPT. EDUIN SUAZO RN-Ortho Nurse Navigator - 03/03/2021 12:48 EST Electronically signed by Faye [facility] Conversion Packaging Supervisor Cerner at 06/03/2022 8:50 AM CDT documented in this encounter Plan of Treatment Not on file documented as of this encounter Visit Diagnoses Not on filedocumented in this encounter
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
--- OUTSIDE RECORDS SUMMARY | 2024-08-17 08:13 | XMS_ITS | Encounter Summary ---
Author Organization [employer] ([place], [place], [place], [place]) Address [address] [place] [address] Care Team Providers Care Service Dismantler Name Role Phone Unavailable Primary Care Provider Unavailabl e Encounter Details Date Type Department Care Team (Late st Contact Info) Description 03/24/2021 Transcribed Document [facility] [place] [facility] [place] [facility] [place] [address] ProviderJason MD [address] [place] [id number] Social History Tobacco Use Types Packs/Day [...] Cerner Conversion Note - Jason ProviderMD - 03/24/2021 3:47 PM LOCKMAKER PAT Adult Entered On: 03/24/2021 15:58 EST Performed On: 03/24/2021 15:47 EST by STORMY DE LOS SANTOS RN Vital Measurements Temperature Source : Temporal artery scanning Temperature Mode : Fahrenheit Temperature, Fahrenheit : 97.2 Deg F Clinical Temperature, C : 36.2 Deg C Pulse Method : Palpation Pulse Source : Radial, Left Heart Rate, Apical : 73 bpm Pulse Rhythm : Regular Respiratory Rate : 20 Breaths/Min Blood Pressure Location : Arm, left upper Blood Pressure Source : Non-Invasive BP Device Blood Pressure Position : Sitting Systolic Blood Pressure : 141 mmHg (HI) Diastolic Blood Pressure : 67 mmHg Oxygen Saturation : 99 % Oxygen Therapy Mode : Room air MINERVA OTOOLE RN - 03/25/2021 12:30 EST Height and Weight, Clinical Dosing Height Source : Measured Height Entry Format : [place] Height, Feet : 5 ft(Converted to: 152 cm, 60 Inch) Height, Inches : 3 Inch(Converted to: 0 ft 3 Inch, 7.62 cm) Clinical Height : 160.02 cm Weight Source : Standing scale Weight Entry Format : [place] Clinical Dosing Weight : 102.73 kg Weight, Pounds : 226 lb Body Surface Area (BSA) : 2.04 m2 Body Mass Index : 40.1 kg/m2 (>HHI) [place] Body Weight : 52 kg MINREVA OTOOLE RN - 03/25/2021 12:30 EST Health Histories Smoking Status : Never (less than 100 in lifetime; none in last 30 days) Smokeless Tobacco Status : Never Implant/Device Type, Kidney Puller and Model : right knee replaced STORMY DE LOS SANTOS RN - 03/24/2021 15:47 EST Social History (As Of: 03/24/2021 15:58:19 EST) Tobacco: Use in Last 12 Months: No. Smoking Status Never smoker. (Last Updated: 09/23/2014 17:46:19 EDT by EMORY CEJA RN) Never (less than 100 in lifetime) Smoking Status. Never Smokeless Tobacco Status. (Last Updated: 11/19/2020 11:19:17 EDT by YARIEL CAVAZOS RN) Alcohol: Alcohol Use History Yes. Alcohol Use Frequency Socially. (Last Updated: 11/19/2020 11:19:32 EDT by YARIEL CAVAZOS, CHIP) Substance Abuse: Drug Use Hx: No. (Last Updated: 09/23/2014 17:46:28 EDT by EMORY CEJA RN) Drug Use Hx: No. Use in Last 12 Months: No. (Last Updated: 11/19/2020 11:19:17 EDT by YARIEL CAVAZOS RN) Infectious Disease History Does patient have symptoms of COVID-19? : No Has the Patient Been Tested for COVID-19 in the last 14 days? : PreProcedure/NON-PUI COVID-19 Testing Does the Patient state known exposure to a COVID-19 positive case in the last 14 days? : No Patient Vaccinated for COVID-19 : Fully vaccinated STORMY DE LOS SANTOS RN - 03/24/2021 15:47 EST Infectious Disease Risk Screening Grid Cough < 2 wks of unknown origin : NO Cough > 2 weeks : NO Blood in Sputum : NO Fever or self-reported Fever : NO Rash of unknown origin : NO Headache : NO Stiff neck : NO Night Sweats : NO Unexplained Weight Loss : NO Diarrhea (3 episode per day) : NO STORMY DE LOS SANTOS RN - 03/24/2021 15:47 EST Physical contact outside [place] in the last 30 days : No Hospitalized in Foreign Country : No Infectious Disease History : Chicken pox/Shingles, Influenza, Measles, Mumps Active Surveillance Screen Assessment : Patient does not meet any of above criteria Active Surveillance Screen Negative : Yes INF Disease TB Screening Calc : 0 INF Disease Recent Travel Calc : 0 STORMY DE LOS SANTOS RN - 03/24/2021 15:47 EST COVID19 PreProcedure Screening Date PreProcedure COVID-19 test known? : No Has patient been isolated since the test : Yes Exposed to COVID19 symptoms since test? : No JITENDRA Zheng RN - 04/12/2021 7:03 EST Is this an Emergent or Add on Procedure? : No STORMY DE LOS SANTOS RN - 03/24/2021 15:47 EST Anesthesia/Transfusion History Blood Transfusion Acceptable to Patient : Yes JITENDRA Zheng RN - 04/12/2021 7:03 EST Family History of Anesthesia Reaction : No prior transfusion(s) Transfusion History : Prior anesthesia reaction Type of Anesthesia Reaction : Excessive nausea/vomiting Family History of Anesthesia Reaction : None STORMY DE LOS SANTOS RN - 03/24/2021 15:47 EST Functional Assessment Functional ADL Evaluation Index EBN Bathing : Independent (2) Dressing : Independent (2) Toileting : Independent (2) Transferring Bed or Chair : Requires assistance (1) (Comment: cane [STORMY DE LOS SANTOS RN - 03/24/2021 15:47 EST] ) Continence : Independent (2) Feeding : Independent (2) STORMY DE LOS SANTOS RN - 03/24/2021 15:47 EST ADL Index Score : 11 STORMY DE LOS SANTOS RN - 03/24/2021 15:47 EST Advance Directive Patient has Advance Directive *Q : No, patient refuses Advance Directive information STORMY DE LOS SANTOS RN - 03/24/2021 15:47 EST [place] Suicide Severity Rating Scale (C-SSRS) CSSRS Past Month Wish to be : No CSSRS Past Month Suicidal Thoughts : No CSSRS Lifetime Suicide Behavior : No Suicide Severity Rating Score : 0 Suicide Severity Rating : No Additional Care Required at this time Thoughts of Harming/Killing Others : No STORMY DE LOS SANTOS RN - 03/24/2021 15:47 EST Psychosocial History Does Someone Depend on You for Care? : No Do You Have a History of the Following? : Patient denies history STORMY DE LOS SANTOS RN - 03/24/2021 16:14 EST Currently in Unsafe Situation : No STORMY DE LOS SANTOS RN - 03/24/2021 15:47 EST General Info Arrived From : Home Mode of Arrival on Unit : Ambulatory Patient Arrival Date/Time : 04/12/2021 6:05 EST Legal Guardian : Spouse JITENDRA Zheng, CHIP - 04/12/2021 7:03 EST Preferred Name : Tracy Jones Family/Rep/Phys Notified of Admit : No Emergency Contact #1 : DR AZALIA MARTÍNEZ Emergency Contact #1 Emergency Contact #1 Relationship : SON Emergency Contact #2 : 00 Emergency Contact #2 Phone Number : 00 Emergency Contact #2 Relationship : 00 Information Obtained From : Patient Primary Language : Japanese Preferred Communication Mode : Verbal Communication Barrier : None Agricultural Equipment Design Engineer Needed : No Clinical Trials Participant *Q : None CTP, None *Q : Yes STORMY DE LOS SANTOS RN - 03/24/2021 15:47 EST Robert Scale Robert Sensory Perception : No impairment Robert Moisture : Rarely moist Robert Activity : Walks occasionally Robert Mobility : Slightly limited Robert Nutrition : Adequate Robert Friction and Shear : No apparent problem Robert Score : 20 STORMY DE LOS SANTOS RN - 03/24/2021 15:47 EST Sleep Apnea Risk Assmt BMI Greater Than 35 kg/m2 : Yes Neck Circumference Greater Than 40 cm : Yes STOP-BANG Sleep Apnea Risk Level Score : 5 MINERVA OTOOLE RN - 03/25/2021 12:30 EST Hx of Obstructive Sleep Apnea Diagnosis : No Snore Loudly : Yes Tired, Fatigued, or Sleepy During Day : No Observed Stopping Breathing During Sleep : No Have/Are Being Treated for Hypertension : Yes Age over 50 Years Old : Yes Gender Male : No STORMY DE LOS SANTOS RN - 03/24/2021 15:47 EST Electronically signed by Faye, [facility] Conversion Preservationist Cerner at 06/03/2022 8:51 AM CDT documented in this encounter Plan of Treatment Not on file documented as of this encounter Visit Diagnoses Not on filedocumented in this encounter
--- OUTSIDE RECORDS SUMMARY | 2024-08-17 08:13 | XMS_ITS | Encounter Summary ---
Author Organization [employer] ([place], [place], [place], [place]) Address [address] [place] [address] Care Team Providers Care Germ Drier Name Role Phone Unavailable Primary Care Provider Unavailabl e Encounter Details Date Type Department Care Team (Late st Contact Info) Description 04/12/2021 Transcribed Document [facility] [place] Family Medicine [facility] [place] [address] ProviderJason MD [address] [place] [address] Social History Tobacco Use Types [...] Conversion Note - Historical ProviderMD - 04/12/2021 2:00 PM PAIN MANAGEMENT SPECIALIST Pain Assessment Entered On: 04/12/2021 13:17 EST Performed On: 04/12/2021 13:35 EST by Philly Lagunas RN-PATIENT CARE BEDSIDE NON-EXEMPT Intervention Information: ketorolac Performed by Philly Lagunas RN-PATIENT CARE BEDSIDE NON-EXEMPT on 04/12/2021 13:05:00 EST ketorolac,15mg IV Push,Forearm Left Pain Assessment Pain Assessment : Follow-up assessment Pain Scale Goal : 4 Pain Scale Used : 0-10 Scale Philly Lagunas RN-PATIENT CARE BEDSIDE NON-EXEMPT - 04/12/2021 13:17 EST Pain Scale Intensity : 2 Philly Lagunas RN-PATIENT CARE BEDSIDE NON-EXEMPT - 04/12/2021 13:17 EST Image 4 - Images currently included in the form version of this document have not been included in the text rendition version of the form. documented in this encounter Plan of Treatment Not on file documented as of this encounter Visit Diagnoses Not on filedocumented in this encounter
--- OUTSIDE RECORDS SUMMARY | 2024-08-17 08:13 | XMS_ITS | Encounter Summary ---
Author Organization [employer] ([place]) Address [address] [place] [address] Care Team Providers Care Chip Crusher Operator Name Role Phone Unavailable Primary Care Provider Unavailabl e Encounter Details Date Type Department Care Team (Late st Contact Info) Description 04/12/2021 Transcribed Document [facility] [place] [facility] [place] [address] ProviderJason MD [address] [place] [address] Social History Tobacco Use Types Packs/Day [...] Conversion Note - Historical ProviderMD - 04/12/2021 3:00 PM MEDIA RELATIONS DIRECTOR Treatment Intervention, OT Entered On: 04/13/2021 12:43 EST Performed On: 04/13/2021 10:50 EST by ENRIQUE NAQVI, OTR/L General Information, OT Visit Type, OT : Treatment Note Patient Orders : Order Date Order Ordering 04/12/2021 11:53 OT Evaluation and Treatment Ordered By: MARLEY CLARK MD-ORT 04/12/2021 11:53 OT Treatment Instructions Ordered By: MARLEY CLARK MD-ORT 04/12/2021 15:00 OT Additional Treatment Ordered By: Active Diagnoses : No Qualifying Diagnoses Therapy Diagnosis, OT : Decreased independence in ADLs and functional mobility Admission Date : 04/12/2021 06:58 Co-treated by, OT : Physical Therapist Personal Devices : Personal Devices No Devices Recorded Assistive Devices : Assistive Devices No Devices Recorded General Information Comment, OT : Dx: [id number] ENRIQUE NAQVI OTR/L - 04/13/2021 12:37 EST General Status Patient Received Status : Up in chair Treatment Start Time : 04/13/2021 10:18 EST Patient Left Status : RN/PCT informed, All needs met and within reach, Other: Therapy gym with PT RN/PCT Informed Comment : CHIP alfonsoed tx. Treatment End Time : 04/13/2021 10:50 EST Treatment Time : 32 Minute(s) ENRIQUE NAQVI OTR/L - 04/13/2021 12:37 EST Self Care/Home Management, OT Upper Body Dressing Assist Level, OT : Independent, complete Lower Body Dressing Assist Level, OT : Independent, modified Toileting Assist Level : Independent, modified Toilet Transfer Assist Level : Independent, modified ENRIQUE NAQVI OTR/L - 04/13/2021 12:37 EST Functional Mobility Mobility Grid Sit to Stand : Supervision/set-up Bed to Chair : Supervision/set-up Stand to Sit : Supervision/set-up ENRIQUE NAQVI OTR/L - 04/13/2021 12:37 EST Plan of Care, OT OT Tx Plan/Goals Established w Patient : Yes ENRIQUE NAQVI OTR/L - 04/13/2021 12:37 EST Nursing Support Worker Goals, OT Dressing, Lower Body LTG Grid Goal #1 Activity : Dressing, Lower Body Assist : Independent, modified Equipment : Other: AE PRN Date to Meet : 04/26/2021 EDT Goal Status : Progressing, continue ENRIQUE NAQVI OTR/L - 04/13/2021 12:37 EST Toileting LTG Grid Goal #1 Activity : Toileting Assist : Independent, modified Date to Meet : 04/26/2021 EDT Goal Status : Progressing, continue ENRIQUE NAQVI OTR/L - 04/13/2021 12:37 EST Toilet Transfer LTG Grid Goal #1 Activity : Toilet Transfer, Ambulatory Assist : Independent, modified Date to Meet : 04/26/2021 EDT Goal Status : Progressing, continue NAQVIENRIQUE PETERSEN OTR/L - 04/13/2021 12:37 EST Treatment Note Subjective Comment : Pt was agreeable. Patient's Response to Treatment : Pt tolerated tx well. Additional Objective Information : Pt was found up in a chair upon arrival. Pt provided ADL AE including a publishing director, leg pumper gauger, and long handled sponge. Pt deferred additional AE stating she had them from a previous sx. Pt ambulated to the bathroom using a RWx with supervision, completing toileting ADL with Aileen. Pt donned pants while in the bathroom with independence. Pt then ambulated a functional distance, completing ~5 practice steps with Alexis and cueing for step sequencing. Pt was left in the therapy gym with PT, all needs met. Assessment : Pt with good effort and participation in tx this date, able to complete ADLs and functional mobility safely. Plan for Treatment : Pt to discharge home today. ENRIQUE NAQVI OTR/L - 04/13/2021 12:37 EST Pain Assessment Pain Comment : Pt complained of minimal L knee pain, no rating given. ENRIQUE NAQVI OTR/L - 04/13/2021 12:37 EST Image 1 - Images currently included in the form version of this document have not been included in the text rendition version of the form. Anticipated Discharge Needs, OT/PT Anticipated Discharge to : Outpatient rehabilitation ENRIQUE NAQVI OTR/L - 04/13/2021 12:[address] [facility] OT Charges OT Selfcare/Hm Mgmt Ea 15 Min : 2 ENRIQUE NAQVI OTR/L - 04/13/2021 12:37 EST documented in this encounter Plan of Treatment Not on file documented as of this encounter Visit Diagnoses Not on filedocumented in this encounter
--- OUTSIDE RECORDS SUMMARY | 2024-08-17 08:13 | XMS_ITS | Encounter Summary ---
Author Organization [employer] ([place], [place], [place]) Address [address] [place] [address] Care Team Providers Care Retail Office Manager Name Role Phone Unavailable Primary Care Provider Unavailabl e Encounter Details Date Type Department Care Team (Late st Contact Info) Description 12/07/2020 Transcribed Document [facility] [place] [facility] [address] ProviderJason MD [facility] [place], [place] [id number] Social History Tobacco Use Types Packs/Day Years [...] Conversion Note - Historical ProviderMD - 12/07/2020 2:47 PM CDT Admission History, Adult Entered On: 12/07/2020 14:51 EDT Performed On: 12/07/2020 14:47 EDT by Ca Brennan RN-PATIENT CARE BEDSIDE NON-EXEMPT Advance Directive Patient has Advance Directive *Q : No, patient refuses Advance Directive information Ca Brennan RN-PATIENT CARE BEDSIDE NON-EXEMPT - 12/07/2020 14:47 EDT Anesthesia/Transfusion History Family History of Anesthesia Reaction : No prior transfusion(s) Blood Transfusion Acceptable to Patient : Yes Transfusion History : Prior anesthesia reaction Type of Anesthesia Reaction : Excessive nausea/vomiting Family History of Anesthesia Reaction : None Ca Brennan RN-PATIENT CARE BEDSIDE NON-EXEMPT - 12/07/2020 14:47 EDT Functional Assessment Living Situation : Home Patient Lives With : Spouse Persons Assisting Patient at Home : Spouse ARCEO Hx Falls Immediate/Within 3 Months : No Current Home Treatments : None Professional Skilled Services : None Ca Brennan RN-PATIENT CARE BEDSIDE NON-EXEMPT - 12/07/2020 14:47 EDT General Info Preferred Name : Tracy Arrived From : Home Mode of Arrival on Unit : Ambulatory Legal Guardian : Son, Spouse Want Family/Rep/Phys Notified of Admit : No Emergency Contact #1 : Mois[facility] Emergency Contact #1 Emergency Contact #1 Relationship : son Emergency Contact #2 : [facility] Emergency Contact #2 Emergency Contact #2 Relationship : spouse Information Obtained From : Patient Primary Language : Macedonian Preferred Communication Mode : Verbal Communication Barrier : None Gas Combustion Engineer Needed : No Objects to Sharing Info w Family : No Ca Brennan RN-PATIENT CARE BEDSIDE NON-EXEMPT - 12/07/2020 14:47 EDT Fall Risk Scales ABCs Fall Injury Risk Identification : Surgery ABC Fall Injury Risk : Moderate to high injury risk ARCEO Hx Falls Immediate/Within 3 Months : No Arceo Secondary Diagnosis : No ARCEO Use of Ambulatory Aid : Bed rest/Nurse assist ARCEO IV Therapy or IV Access : Yes Arceo Gait/Transferring : Weak Arceo Mental Status : Oriented to own ability Arceo Fall Risk Score : 30 ARCEO Fall Scale Risk Level : 25-45 Medium Risk [place] Fall Interventions : Fall prevention handout/education per facility policy Barriers to Learning : None evident Ca Brennan RN-PATIENT CARE BEDSIDE NON-EXEMPT - 12/07/2020 14:47 EDT Health Histories Smoking Status : Never (less than 100 in lifetime; none in last 30 days) Smokeless Tobacco Status : Never Ca Brennan RN-PATIENT CARE BEDSIDE NON-EXEMPT - 12/07/2020 14:47 EDT Social History (As Of: 12/07/2020 14:51:07 EDT) Tobacco: Use in Last 12 Months: [...] (Last Updated: 11/19/2020 11:19:17 EDT by YARIEL CAVAZOS, CHIP) Height and Weight, Clinical Dosing Height Source : Measured Height Entry Format : [place] Height, Feet : 5 ft(Converted to: 152 cm, 60 Inch) Height, Inches : 3 Inch(Converted to: 0 ft 3 Inch, 7.62 cm) Clinical Height : 160.02 cm Weight Source : Standing scale Weight Entry Format : [place] Clinical Dosing Weight : 104.09 kg Weight, Pounds : 229 lb Body Surface Area (BSA) : 2.05 m2 Body Mass Index : 40.6 kg/m2 (>HHI) [place] Body Weight : 52 kg Ca Brennan RN-PATIENT CARE BEDSIDE NON-EXEMPT - 12/07/2020 14:47 EDT Infectious Disease History Does patient have symptoms of COVID-19? : No Has the Patient Been Tested for COVID-19 in the last 14 days? : No, Patient stated Does the Patient state known exposure to a COVID-19 positive case in the last 14 days? : No Patient Vaccinated for COVID-19 : Fully vaccinated Ca Brennan RN-PATIENT CARE BEDSIDE NON-EXEMPT - 12/07/2020 14:47 EDT Infectious Disease Risk Screening Grid Cough < 2 wks of unknown origin : NO Cough > 2 weeks : NO Blood in Sputum : NO Fever or self-reported Fever : NO Rash of unknown origin : NO Headache : NO Stiff neck : NO Night Sweats : NO Unexplained Weight Loss : NO Diarrhea (3 episode per day) : NO Ca Brennan RN-PATIENT CARE BEDSIDE NON-EXEMPT - 12/07/2020 14:47 EDT Physical contact outside [place] in the last 30 days : No Hospitalized in Foreign Country : No Infectious Disease History : Chicken pox/Shingles, Influenza, Measles, Mumps INF Disease TB Screening Calc : 0 INF Disease Recent Travel Calc : 0 Ca Brennan RN-PATIENT CARE BEDSIDE NON-EXEMPT - 12/07/2020 14:47 EDT Tetanus Immunization Status Previous Tetanus Immunizations : No qualifying data available. Ca Brennan RN-PATIENT CARE BEDSIDE NON-EXEMPT - 12/07/2020 14:47 EDT Influenza Vaccine Asmt, Adult Previous Vaccines from Immunization Schedule : Previous Vaccines and Immunizations SARS-CoV-2 (COVID-19) mRNA-1273 vaccine: 0 unknown unit (11/16/20 00:00:00) SARS-CoV-2 (COVID-19) mRNA-1273 vaccine: 0 unknown unit (03/25/20 00:00:00) SARS-CoV-2 (COVID-19) mRNA-1273 vaccine: 0 unknown unit (02/26/20 00:00:00) Influenza Immunization, Current Season : Yes Ca Brennan RN-PATIENT CARE BEDSIDE NON-EXEMPT - 12/07/2020 14:47 EDT Pneumococcal Vaccine Previous Vaccines from Immunization Schedule : Previous Vaccines and Immunizations SARS-CoV-2 (COVID-19) mRNA-1273 vaccine: 0 unknown unit (11/16/20 00:00:00) SARS-CoV-2 (COVID-19) mRNA-1273 vaccine: 0 unknown unit (03/25/20 00:00:00) SARS-CoV-2 (COVID-19) mRNA-1273 vaccine: 0 unknown unit (02/26/20 00:00:00) Pneumonia Immunization Received : Yes Ca Brennan RN-PATIENT CARE BEDSIDE NON-EXEMPT - 12/07/2020 14:47 EDT Order Details Patient Needs Meds Crushed/Liquid : No Ca Brennan RN-PATIENT CARE BEDSIDE NON-EXEMPT - 12/07/2020 14:47 EDT Nutrition History Eating Poorly Due to Decreased Appetite : No Unplanned Weight Loss in Past 3-6 Months : No Malnutrition Screening Tool Total(mal) : 0 Malnutrition Screening Tool Risk Level : Patient not at risk Ca Brennan RN-PATIENT CARE BEDSIDE NON-EXEMPT - 12/07/2020 14:47 EDT [place] Suicide Severity Rating Scale (C-SSRS) CSSRS Past Month Wish to be : No CSSRS Past Month Suicidal Thoughts : No CSSRS Lifetime Suicide Behavior : No Suicide Severity Rating Score : 0 Suicide Severity Rating : No Additional Care Required at this time Ca Brennan RN-PATIENT CARE BEDSIDE NON-EXEMPT - 12/07/2020 14:47 EDT Psychosocial History Currently in Unsafe Situation : No Ca Brennan RN-PATIENT CARE BEDSIDE NON-EXEMPT - 12/07/2020 14:47 EDT Sleep Apnea Risk Assmt Hx of [...] Sleep Apnea Risk Level Score : 5 Ca Brennan RN-PATIENT CARE BEDSIDE NON-EXEMPT - 12/07/2020 14:47 EDT documented in this encounter Plan of Treatment Not on file documented as of this encounter Visit Diagnoses Not on filedocumented in this encounter
--- OUTSIDE RECORDS SUMMARY | 2024-08-17 08:13 | XMS_ITS | Encounter Summary ---
Author Organization [employer] ([place], [place], [place], [place]) Address [address] [place] [address] Care Team Providers Care Chemical Laboratory Tester Name Role Phone Unavailable Primary Care Provider Unavailabl e Encounter Details Date Type Department Care Team (Late st Contact Info) Description 12/07/2020 Transcribed Document [facility] [place] Family Medicine [facility] [address] ProviderJason MD [address] [place] [address] Social History Tobacco Use Types [...] Conversion Note - Jason ProviderMD - 12/07/2020 12:37 PM CDT Pain Assessment Entered On: 12/07/2020 16:56 EDT Performed On: 12/07/2020 17:27 EDT by Ca Brennan RN-PATIENT CARE BEDSIDE NON-EXEMPT Intervention Information: acetaminophen Performed by Ca Brennan RN-PATIENT CARE BEDSIDE NON-EXEMPT on 12/07/2020 16:27:00 EDT acetaminophen,1000mg Oral Pain Assessment Pain Scale Goal : 5 Ca Brennan RN-PATIENT CARE BEDSIDE NON-EXEMPT - 12/07/2020 16:56 EDT documented in this encounter Plan of Treatment Not on file documented as of this encounter Visit Diagnoses Not on filedocumented in this encounter
--- OUTSIDE RECORDS SUMMARY | 2024-08-17 08:13 | XMS_ITS | Encounter Summary ---
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 Name Role Phone Unavailable Primary Care Provider Unavailabl e Encounter Details Date Type Department Care Team (Late st Contact Info) Description 04/12/2021 Transcribed Document [facility] Radiology [address] [place] [address] Gisele Quinteros MD [facility] [place] [place] [address] Social History Tobacco Use Types [...] Conversion Note - Gisele Quinteros MD - 04/12/2021 7:30 AM EST Patient: LESLIE MARTÍNEZ Age: 65 years Sex: Female : 1955 Associated Diagnoses: None Author: COMER, MARIBETH Joyner APRN Chief Complaint pleasant 65 yo female here with her for L TKA with Dr. quinteros. pt has had knee pain for 5 years, failed conservative measures. Review of Systems Constitutional: morbid obesity. Eye: glasses. Ear/Nose/Mouth/Throat: Negative. Respiratory: Negative. Cardiovascular: Negative. Gastrointestinal: Negative. Genitourinary: Negative. Hematology/Lymphatics: Negative. Endocrine: Negative. Immunologic: Negative. Musculoskeletal: Joint pain, L knee. Integumentary: Negative. Neurologic: Negative. Psychiatric: Negative. All other systems are negative Health Status Allergies: Allergic Reactions (Selected) Severity Not Documented Strawberries- No reactions were documented. Tetracycline- No reactions were documented., Allergies (2) Active Reaction Strawberries None Documented tetracycline None Documented Current medications: (Selected) Inpatient Medications Ordered Ancef: 2 Gram, 50 mL, 100 mL/Hr, IV Piggyback, PREOP Lactated Ringers Injection intravenous solution 1,000 mL: 20 mL/Hr, IntraVENous Lyrica: 75 mg, Oral, 1-Time Toradol: 15 mg, IV Push, 1-Time Tylenol: 1,000 mg, Oral, On-Arrival Zofran: 4 mg, IV Push, 1-Time clonidine/epinephrine/ketorolac/ropivacaine: 50 mL, IntraArtiCULAR, 1-Time dexAMETHasone: 10 mg, IV Push, 1-Time lidocaine 1% preservative-free injectable solution: 0.5 mL, IntraDermal, 1-Time tranexamic acid 1,000 mg + syringe 1 Each + Sodium Chloride 0.9% intravenous solution 15 mL: 1,000 mg, 10 mL, 150 mL/Hr, SLOW IV Push, 1-Time tranexamic acid 2,000 mg + sodium chloride 0.9% injectable solution 5 mL + syringe 1 Each: 2,000 mg, 20 mL, mL/Hr, IntraArtiCULAR, 1-Time Prescriptions Prescribed Colace 100 mg oral capsule: 1 Cap, Oral, BID, PRN: as needed for constipation, 60 Cap, 0 Refill(s) Documented Medications Documented CoQ10: 1 Tab, Oral, Daily, 0 Refill(s) Edarbyclor 40 mg-25 mg oral tablet: 1 Tab, Oral, Daily, 30 Tab, 0 Refill(s) Lipitor 80 mg oral tablet: 1 Tab, Oral, At Bedtime, 0 Refill(s) Probiotic Formula oral capsule: 2 Cap, Oral, Daily, 0 Refill(s) Vitamin B12 1000 mcg oral tablet: 1 Tab, Oral, Daily, 30 Tab, 0 Refill(s) Vitamin B12: 1,000 mcg, SubLINgual, Daily, 0 Refill(s) aspirin: 81 mg, Oral, Daily, 0 Refill(s) biotin 5000 mcg oral capsule: 1 Tab, Oral, Daily, 0 Refill(s) bisoprolol: 5 mg, Oral, Daily, 0 Refill(s) famotidine 20 mg oral tablet: 1 Tab, Oral, BID, 60 Tab, 0 Refill(s) fexofenadine 180 mg oral tablet: 1 Tab, Oral, Daily levothyroxine 137 mcg (0.137 mg) oral tablet: 1 Tab, Oral, Daily, 60 Tab, 0 Refill(s) meloxicam 15 mg oral tablet: 1 Tab, Oral, Daily, 0 Refill(s) metformin 500 mg oral tablet: 1 Tab, Oral, BID, Home Medications (15) Active aspirin 81 mg, [...] 1,000 mcg = 1 Tab, Oral, Daily , Medications (11) Active Scheduled: (10) acetaminophen 500 mg tab 1,000 mg 2 Tab, Oral, On-Arrival ceFAZolin/D5w 2 Gram 50 mL, IV Piggyback, PREOP clon/epi/ketor/ropiv 0.04/0.25/15/123 mg 50 mL inj 50 mL, IntraArtiCULAR, 1-Time dexAMETHasone 10 mg/1 mL inj 10 mg 1 mL, IV Push, 1-Time ketorolac 30 mg/1 mL inj 15 mg 0.5 mL, IV Push, 1-Time lidocaine 1% *PF* inj 2 mL 0.5 mL, IntraDermal, 1-Time ondansetron 4 mg/2 mL inj 4 mg 2 mL, IV Push, 1-Time pregabalin 75 mg cap 75 mg 1 Cap, Oral, 1-Time tranexamic acid 1,000 mg + syringe 1 Each + NaCl 0.9% 15 mL 1,000 mg 10 mL, SLOW IV Push, 1-Time tranexamic acid 2,000 mg + NaCl 0.9% *PF* 5 mL + syringe 1 Each 2,000 mg 20 mL, IntraArtiCULAR, 1-Time Continuous: (1) lactated ringers 1,000 mL 1,000 mL, IntraVENous, 20 mL/Hr PRN: (0) Problem list: All Problems DM (diabetes mellitus), type 2 / SNOMED CT 619804795 / Confirmed Stomach cancer / SNOMED CT 781309853 / Confirmed IBS (irritable bowel syndrome) / SNOMED CT 05779458 / Confirmed Hypothyroidism / SNOMED CT 00623435 / Confirmed HTN (hypertension) / SNOMED CT 0813435298 / Confirmed GERD (gastroesophageal reflux disease) / SNOMED CT 498924122 / Confirmed Diverticulitis / SNOMED CT 801967288 / Confirmed Back pain / SNOMED CT 021574354 / Confirmed At risk for sleep apnea / IMO 47193207 / Confirmed Arthritis / SNOMED CT 5281431 / Confirmed, Active Problems (10) Arthritis At risk for sleep apnea Back pain Diverticulitis DM (diabetes mellitus), type 2 GERD (gastroesophageal reflux disease) HTN (hypertension) Hypothyroidism IBS (irritable bowel syndrome) Stomach cancer Histories Past Medical History: No active or resolved past medical history items have been selected or recorded. Family History: No family history items have been selected or recorded. Procedure history: Cholecystectomy (38916011). bilateral meniscus repair. Hysterectomy (736723944). stomach cancer. Anal fissure (68913126). Oral surgery ([id number]). RIGHT KNEE REPLACEMENT. Social History Social & Psychosocial Habits Alcohol 11/19/2020 Alcohol Use History, Social Habits Yes Alcohol Use Frequency Socially Substance Abuse 09/23/2014 Recreational Drug Use History No 11/19/2020 Recreational Drug Use History No Recreational Drug Use Last 12 Months No Tobacco 09/23/2014 Tobacco Use Within Last Twelve Months No Smoking Status Never smoker 11/19/2020 Smoking Status Never (less than 100 in l Smokeless Tobacco Status Never . Physical Examination VS/Measurements Vital Signs/Vital Measures 04/12/2021 7:05 EST Systolic Blood Pressure 98 mmHg Diastolic Blood Pressure 59 mmHg LOW Mean Arterial Pressure (MAP)-BMDI 72 Temperature Source Temporal artery scanning Temperature Mode Fahrenheit Temperature, Fahrenheit 97.0 Deg F Clinical Temperature, C 36.1 Deg C Heart Rate Monitored 68 bpm Respiratory Rate 18 Breaths/Min Oxygen Saturation 99 % Oxygen Therapy Mode Room air , Vitals Signs (last 24 hrs) Last Charted Minimum Maximum Temp 97.0 (APR 12 07:05) 97.0 (APR 12 07:05) 97.0 (APR 12:05) Mon HR 68 (APR 12 07:05) 68 (APR 12 07:05) 68 (APR 12 07:05) Resp Rate 18 (APR 12 07:05) 18 (APR 12 07:05) 18 (APR 12 07:05) SBP 98 (APR 12 07:05) 98 (APR 12 07:05) 98 (APR 12 07:05) DBP L 59 (APR 12 07:05) L 59 (APR 12 07:05) L 59 (APR 12:05) MAP 72 (APR 12 07:05) 72 (APR 12 07:05) 72 (APR 12 07:05) SpO2 99 (APR 12 07:05) 99 (APR 12 07:05) 99 (APR 12 07:05) General: Alert and oriented, No acute distress, morbid obesity. Eye: Extraocular movements are intact, glasses. HENT: Normocephalic, Normal hearing. Respiratory: Lungs are clear to auscultation, Respirations are non-labored. Cardiovascular: Normal rate, Regular rhythm, No murmur, No gallop, No edema. Musculoskeletal: painful ROM L knee, LLE weakness, uses cane/walker occasionally, see comprehensive ortho exam in office notes. Integumentary: Warm, Dry, [place]. Neurologic: Alert, Oriented. Psychiatric: Cooperative, Appropriate mood & affect. Review / Management Results review: Labs (Last four charted values) WBC 6.9 (MAR 10) HB 13.0 (MAR 10) HCT 39.4 (MAR 10) Plt 256 (FEB 10) Na 137 (FEB 10) K 3.8 (FEB 10) Cl 103 (FEB 10) CO2 29 (FEB 10) BUN H 24 (B 10) Cr 0.80 (FEB 10) Glu R 100 (B 10) Ca 9.4 (FEB 10) PT 10.8 (FEB 10) INR 1.0 (B 10) PTT 27.6 (B 10) . Impression and Plan Diagnosis 1. L knee pain 2. HOLDEN risk 3. OA 4. diverticulitis 5. stomach cancer 6. back pain 7. DM 8. GERD 9. HTN 10 hypothyroidism 11. IBS. Condition: Stable. pt to proceed with surgery, DC home tomorrow documented in this encounter Plan of Treatment Not on file documented as of this encounter Visit Diagnoses Not on filedocumented in this encounter
--- OUTSIDE RECORDS SUMMARY | 2024-08-17 08:13 | XMS_ITS | Encounter Summary ---
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 Role Phone Unavailable Primary Care Provider Unavailabl e Encounter Details Date Type Department Care Team (Late st Contact Info) Description 12/07/2020 Transcribed Document [facility] Radiology [address] [place] [address] Gisele Quinteros MD [facility] [place] [address] Social History Tobacco Use Types [...] Note - Gisele Quinteros MD - 12/07/2020 9:01 AM EDT Patient: LESLIE MARTÍNEZ Age: 65 years Sex: Female : 1955 Associated Diagnoses: None Author: 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 Tetracycline- No reactions were documented., Allergies (2) Active Reaction Strawberries None Documented tetracycline None Documented Current medications: (Selected) Inpatient Medications Ordered Ancef: 2 Gram, 50 mL, 100 mL/Hr, IV Piggyback, PREOP Intraoperative Periarticular Injection - Dr. Quinteros (ALEXANDRE): 50 ml, IntraArtiCULAR, 1-Time Lactated Ringers Injection intravenous solution 1,000 mL: 20 mL/Hr, IntraVENous Lyrica: 75 mg, Oral, 1-Time Toradol: 15 mg, IV Push, 1-Time Tylenol: 1,000 mg, Oral, On-Arrival Zofran: 4 mg, IV Push, 1-Time dexAMETHasone: 10 mg, IV Push, 1-Time famotidine: 20 mg, Oral, 1-Time fentaNYL: 50 mcg, IV Push, Q10Min, PRN: Pain lidocaine 1% preservative-free injectable solution: 0.5 mL, IntraDermal, 1-Time midazolam: 2 mg, IV Push, Q10Min, PRN: Anxiety tranexamic acid: 3,000 mg, 57 mL/Hr, IV Piggyback, 1-Time Prescriptions Prescribed Nitromist 0.4 mg sublingual spray: 1 [place], SubLINgual, Q5Min, 1 Bottle, 0 Refill(s) Documented Medications Documented CoQ10: 1 Tab, Oral, Daily, 0 Refill(s) Edarbyclor 40 mg-25 mg oral tablet: 1 Tab, Oral, Daily, 30 Tab, 0 Refill(s) Lipitor 80 mg oral tablet: 1 Tab, Oral, Daily, 0 Refill(s) Probiotic Formula oral capsule: 2 Cap, Oral, Daily, 0 Refill(s) Vitamin B12 1000 mcg oral tablet: 1 Tab, Oral, Daily, 30 Tab, 0 Refill(s) aspirin 81 mg oral tablet, chewable: 1 Tab, Oral, Daily, 30 Tab, 0 Refill(s) biotin 5000 mcg oral capsule: 1 Tab, Oral, Daily, 0 Refill(s) bisoprolol 5 mg oral tablet: 0.5 Tab, Oral, Daily, 15 Tab, 0 Refill(s) famotidine 20 mg oral tablet: 1 Tab, Oral, BID, 60 Tab, 0 Refill(s) fexofenadine 180 mg oral tablet: 1 Tab, Oral, Daily levothyroxine 137 mcg (0.137 mg) oral tablet: 1 Tab, Oral, Daily, 60 Tab, 0 Refill(s) meloxicam 15 mg oral tablet: 1 Tab, Oral, Daily, 0 Refill(s) metformin 500 mg oral tablet: 1 Tab, Oral, BID, Home Medications (14) Active aspirin 81 mg [...] mg sublingual spray 0.4 mg = 1 [place], SubLINgual, Q5Min Probiotic Formula oral capsule 2 Cap, Oral, Daily Vitamin B12 1000 mcg oral tablet 1,000 mcg = 1 Tab, Oral, Daily , Medications (13) Active Scheduled: (10) acetaminophen 500 mg tab 1,000 mg 2 Tab, Oral, On-Arrival ceFAZolin/D5w 2 Gram 50 mL, IV Piggyback, PREOP dexAMETHasone 10 mg/1 mL inj 10 mg 1 mL, IV Push, 1-Time famotidine 20 mg tab 20 mg 1 Tab, Oral, 1-Time ketorolac 30 mg/1 mL inj 15 mg 0.5 mL, IV Push, 1-Time lidocaine 1% *PF* inj 30 mL 0.5 mL, IntraDermal, 1-Time Non Formulary 50 ml, IntraArtiCULAR, 1-Time ondansetron 4 mg/2 mL inj 4 mg 2 mL, IV Push, 1-Time pregabalin 75 mg cap 75 mg 1 Cap, Oral, 1-Time tranexamic acid 3,000 mg, IV Piggyback, 1-Time Continuous: (1) lactated ringers 1,000 mL 1,000 mL, IntraVENous, 20 mL/Hr PRN: (2) fentaNYL 100 mcg/2 mL inj 50 mcg 1 mL, IV Push, Q10Min midazolam 1 mg/1 mL inj 2 mL 2 mg 2 mL, IV Push, Q10Min Problem list: All Problems DM (diabetes mellitus), type 2 / SNOMED CT 076448486 / Confirmed Stomach cancer / SNOMED CT 848296166 / Confirmed IBS (irritable bowel syndrome) / SNOMED CT 80160381 / Confirmed Hypothyroidism / SNOMED CT 48819384 / Confirmed HTN (hypertension) / SNOMED CT 4686831993 / Confirmed GERD (gastroesophageal reflux disease) / SNOMED CT 682830608 / Confirmed Diverticulitis / SNOMED CT 238188922 / Confirmed At risk for sleep apnea / IMO [id number] / Confirmed, Active Problems (8) At risk for sleep apnea Diverticulitis DM (diabetes mellitus), type 2 GERD (gastroesophageal reflux disease) HTN (hypertension) Hypothyroidism IBS (irritable bowel syndrome) Stomach cancer osteoarthritis Histories Past Medical History: No active or resolved past medical history items have been selected or recorded. Family History: No family history items have been selected or recorded. Procedure history: Cholecystectomy (93098805). bilateral meniscus repair. Hysterectomy ([id number]). stomach cancer. Anal fissure (92952553). Oral surgery ([id number]). Social History Social & Psychosocial Habits Alcohol [...] . Physical Examination VS/Measurements Vital Signs/Vital Measures 12/07/2020 7:59 EDT Systolic Blood Pressure 118 mmHg Diastolic Blood Pressure 67 mmHg Mean Arterial Pressure (MAP)-BMDI 86 Temperature Source Temporal artery scanning Temperature Mode Fahrenheit Temperature, Fahrenheit 97.2 Deg F Clinical Temperature, C 36.2 Deg C Heart Rate Monitored 73 bpm Respiratory Rate 20 Breaths/Min Oxygen Saturation 97 % Oxygen Therapy Mode Room air , Vitals Signs (last 24 hrs) Last Charted Minimum Maximum Temp 97.2 (DEC 07 07:59) 97.2 (DEC 07 07:59) 97.2 (DEC 07 07:59) Mon HR 73 (DEC 07 07:59) 73 (DEC 07 07:59) 73 (DEC 07 07:59) Resp Rate 20 (DEC 07 07:59) 20 (DEC 07 07:59) 20 (DEC 07 07:59) SBP 118 (DEC 07 07:59) 118 (DEC 07 07:59) 118 (DEC 07 07:59) DBP 67 (DEC 07 07:59) 67 (DEC 07 07:59) 67 (DEC 07 07:59) MAP 86 (DEC 07 07:59) 86 (DEC 07 07:59) 86 (DEC 07 07:59) SpO2 97 (DEC 07 07:59) 97 (DEC 07 07:59) 97 (DEC 07 07:59) General: Alert and oriented, No acute distress, morbid obesity. Eye: Pupils are equal, round and reactive to light, Extraocular movements are intact, glasses. HENT: Normocephalic, Normal hearing. Neck: Supple, Non-tender. Respiratory: Lungs are clear to auscultation, Respirations are non-labored. Cardiovascular: Normal rate, Regular rhythm, No murmur, No gallop, No edema. Gastrointestinal: Soft, Non-tender. Genitourinary: No costovertebral angle tenderness. Lymphatics: No lymphadenopathy neck, axilla, groin. Musculoskeletal: painful ROM R knee, RLE weakness, see comprehensive ortho exam in office notes. Integumentary: Warm, Dry, [place]. Neurologic: Alert, Oriented. Psychiatric: Cooperative, Appropriate mood & affect. Review / Management Results review: Labs (Last four charted values) WBC 10.0 (NOV 19) HB 13.2 (NOV 19) HCT 39.9 (NOV 19) Plt 303 (NOV 19) Na 139 (NOV 19) K 3.6 (NOV 19) Cl 106 (NOV 19) CO2 26 (NOV 19) BUN 17 (NOV 19) Cr 0.80 (NOV 19) Glu R 97 (NOV 19) Ca 10.0 (NOV 19) PT 10.7 (NOV 19) INR 1.0 (NOV 19) PTT 28.5 (NOV 19) . Impression and Plan Condition: Stable. documented in this encounter Plan of Treatment Not on file documented as of this encounter Visit Diagnoses Not on filedocumented in this encounter
--- OUTSIDE RECORDS SUMMARY | 2024-08-17 08:13 | XMS_ITS | Encounter Summary ---
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 Name Role Phone Unavailable Primary Care Provider Unavailabl e Encounter Details Date Type Department Care Team (Late st Contact Info) Description 12/08/2020 Transcribed Document [facility] [place] [facility] [address] [place] [address] ProviderJason MD [address] [place] [address] Social History Tobacco Use Types [...] Conversion Note - Jason Jason MD - 12/08/2020 3:51 PM CDT [facility] [place] [address] LESLIE MARTÍNEZ :1955 Visit Time:12/07/2020 Your Visit Summary Your Care Team Admitting Physician - MARLEY QUINTEROS MD-ORT Attending Physician - MARLEY QUINTEROS MD-ORT Primary Care Physician - RAYMUNDO SNYDER (REF)NIAN Referring Physician - MARLEY QUINTEROS MD-ORT Your Diagnosis Unilateral primary osteoarthritis, right knee, Unilateral primary osteoarthritis, right knee These Are Your Goals No qualifying data available. Discharge Vitals Temperature 36.7 ??C Heart Rate (Monitored) 63 Respiratory Rate 18 Blood Pressure 108/63 What to do next Instructions From Your Care Team Discharge Follow Up Instructions: Follow-up w/ Ulisses Almendarez PA-C in 3 wks ([phone]) Follow Up Instructions: Continue CICI hose for 3 wks if tolerated. Follow Up Instructions: Leave Aquacel dressing in place x 7d, then leave open to air. Diet after Discharge: Resume usual diet as tolerated Activity after Discharge: As tolerated, No strenuous activity Lifting Restrictions: No heavy lifting over 10 pounds Driving after Discharge: Do not drive Showering/Bathing: No tub bathing, soaking or swimming Wound/Incision Care after Discharge: Keep operative site/wound site clean and dry Follow-Up Appointments Follow Up with GREG ALMENDAREZ PA-ORT When 12/30/2020 10:15 AM EST Where: [facility] [place] [address]- Medications What How Much When Instructions Next Dose acetaminophen-oxyCODONE (Percocet 5/ 325 oral tablet) 1 Tablet(s) Oral Every 4 Hours as needed for as needed for pain Duration: 7 Day(s) not to exceed 5 tablets/ day Pickup at [facility] as needed cefadroxil (cefadroxil 500 mg oral capsule) 1 Capsule(s) Oral Every 12 hours Duration: 7 Day(s) Pickup at [facility] docusate (Colace 100 mg oral capsule) 1 Capsule(s) Oral Two Times A Day as needed for as needed for constipation Pickup at [facility] as needed pregabalin (Lyrica 75 mg oral capsule) 1 Capsule(s) Oral Every Day at bedtime Pickup at [facility] aspirin (aspirin 81 mg oral delayed release tablet) 1 Tablet(s) Oral Two Times A Day Pickup at [facility] atorvastatin (Lipitor 80 mg oral tablet) 1 Tablet(s) Oral Every Day 12/09 nitroglycerin (Nitromist 0.4 mg sublingual spray) 1 Nutrioso(s) SubLINgual Every 5 minutes as needed for Chest Pain not to exceed 3 doses/ 15 min--if pain persists, seek medical attention as needed azilsartan-chlorthalidone (Edarbyclor 40 mg-25 mg oral tablet) 1 Tablet(s) Oral Every Day 12/09 bifidobacterium-lactobacillus (Probiotic Formula oral capsule) 2 Capsule(s) Oral Every Day 12/09 biotin (biotin 5000 mcg oral capsule) 1 Tablet(s) Oral Every Day 12/09 bisoprolol (bisoprolol 5 mg oral tablet) 0.5 Tablet(s) Oral Every Day 12/09 cyanocobalamin (Vitamin B12 1000 mcg oral tablet) 1 Tablet(s) Oral Every Day 12/09 famotidine (famotidine 20 mg oral tablet) 1 Tablet(s) Oral Two Times A Day tonight fexofenadine (fexofenadine 180 mg oral tablet) 1 Tablet(s) Oral Every Day 12/09 levothyroxine (levothyroxine 137 mcg (0.137 mg) oral tablet) 1 Tablet(s) Oral Every Day 12/09 meloxicam (meloxicam 15 mg oral tablet) 1 Tablet(s) Oral Every Day 12/09 metformin (metformin 500 mg oral tablet) 1 Tablet(s) Oral Two Times A Day tonight ondansetron (Zofran 4 mg oral tablet) 1 Tablet(s) Oral Every 8 Hours as needed for Nausea/Vomiting Pickup at [facility] as needed ubiquinone (CoQ10) 1 Tablet(s) Oral Every Day 12/09 Pharmacy Information [facility]: [address] [place] [address] [address] [place], [place] [id number] [phone] Take your medications faithfully. Do NOT skip medication. Do NOT stop taking medications without the direction of a physician. Carry a list of your medications with you at all times, and take this medication list with you to your first follow up visit. Report any side effects. Avoid herbal remedies unless discussed with your physician. As part of your treatment plan, your physician may have prescribed a limited course of a controlled substance. This medication may be given to help people with moderate or severe pain or for other medical conditions, but there are risks involved with treatment. Common side effects may include nausea, constipation, drowsiness, sweating, itching, dry mouth, and rash. More serious side effects may include cognitive and motor impairment, like problems with thinking, concentrating, alertness, and movement (e.g. slowed reflexes), and driving and operating heavy machinery can be dangerous. It is important for you to talk to your physician if you have these side effects or questions. These controlled substances can produce physical dependence and be habit-forming if taken for an extended period of time, which means that the body has gotten used to them and may experience withdrawal symptoms if they are abruptly stopped. Withdrawal symptoms can include runny nose, sweating, goose bumps, diarrhea, abdominal cramping, rapid heartbeat, difficulty sleeping, and nervousness. Please dispose of unused and medications per your retail pharmacy guidance. Allergies Strawberries tetracycline Immunizations This Visit SARS-CoV-2 (COVID-19) mRNA-1273 vaccine 11/16/2020 SARS-CoV-2 (COVID-19) mRNA-1273 vaccine 03/25/2020 SARS-CoV-2 (COVID-19) mRNA-1273 vaccine 02/26/2020 Education Materials Discharge Instructions for Total Knee Replacement Your Knee Incision: Do not swim, soak or bathe in a tub until cleared by the surgeon. If you have a light brown dressing: ??? Keep your dressing in place for 7-10 days. You may shower, but you must cover your incision or dressing with Glad Wrap Press N??? Seal or something that will keep your incision dry. ??? Your Physical Therapist will remove the dressing after 7-10 days. Or your surgeon will remove it at your return appointment. Then your incision may be open to air. If you shower, be sure to keep your incision dry until your follow-up appointment. Activity ??? You may put weight on your leg when you walk, unless your surgeon tells you differently. Use your walker until the therapist or surgeon say you do not need it anymore. Continue your exercises from physical therapy. ??? Use Zero Knee Foam as much as possible, AT LEAST three times a day for 30 minutes, keep toes pointed to ceiling. Keep knee straight and extended unless you are doing bending exercises. No pillow under knee. ??? Stay active, get up every 1-2 hours, walk short distances. No driving until cleared by your surgeon. ??? If your surgeon has ordered support hose, wear them for 3 weeks in order to prevent blood clots. Take them off 1-2 times per day for about 30 minutes-1 hour. Check your skin for red or open areas under the hose. They can be bought online and at many pharmacies, be sure that compression is at least 15-20mmHg. ??? For swelling, elevate your leg above your heart. Remember to keep knee straight and NOT bent, unless you are doing your bending exercises. ??? Cold therapy wrap as tolerated. Switch out cold gel pack every 4 - 5 hours. Cold therapy is for pain and swelling. Use it as long as your knee is painful or swollen. General Instructions: ??? Eat 25-35 grams of fiber every day. Drink 8-10 glasses of water a day and take stool softeners while you are on pain medication, since it causes constipation. If you do not have a bowel movement in 3-4 days after your surgery, try an over the counter laxative, such as milk of magnesia, miralax, dulcolax tablet or suppository, or fleets enema. If you do not have success after this, contact your nurse navigator or surgeon???s office. ??? Continue using your incentive spirometer to keep fever and lung infection away. Aim for 10 breaths every hour while you are awake. ??? Take pain medicine as needed, especially before therapy. ??? Let your doctors and dentist know you have a prosthetic knee. They may need to give you an antibiotic before a procedure. Call Your Surgeon: 1. Infection: ??? Your knee has increased swelling that does not get better with time, propping up your leg and with rest. ??? Your incision has a foul smell or your incision begins to open. ??? Your incision gets red, is warm or has increased drainage after 2 days. ??? You have a fever over 101 degrees for more than 24 hours. 2. A Blood Clot: ??? You have increased swelling that does not get better with time, propping your leg and rest, and redness, warmth or pain in your calf. 3. A Fall: ??? You fall down without obvious injury. Call 911: 1. You have sudden chest pain and/or difficulty breathing 2. You fall and cannot get up CALL FIRST! Unless you are experiencing life-threatening issues, call your surgeon???s office or nurse navigator first, before going to the Emergency Department. Call your surgeon or nurse navigator if: ??? Your incision has increased swelling that does not get better with time, rest, and propping up your leg ??? Your incision has a foul smell or begins to open ??? You have a large amount of bleeding from incision ??? Your incision gets red, warm or increased drainage after 2 days ??? You have a fever over 101 degrees for more than 24 hours ??? You have increased swelling, redness, warmth or pain in your calf ??? You fall, but don???t have an obvious injury ??? You have questions or cause for concern regarding your total joint replacement Call 911 if: ??? You have sudden chest pain or shortness of breath ??? You fall and cannot get up ??? Life-threatening signs or symptoms ??? Stroke signs and symptoms: Facial droop, uneven smile, arm numbness, arm weakness, slurred speech, difficulty speaking or understanding If you are a patient of Dr. Quinteros or Dr. Juarez, call [phone] If you are a patient of Dr. Hernandez, call [phone] Nurse Navigator: Jesenia Burroughs Office: [phone]; ; available during regular business hours Emergency Awareness and Preventative Care STROKE is an EMERGENCY Every Minute Counts Act FAST and Check for these signs: FACE Does the face look uneven? ARM Does one arm drift down? SPEECH Does their speech sound strange? TIME Call at any sign of stroke Stroke Risk Factors Atrial Fibrillation (irregular heartbeat) Diabetes Family history of stroke Heart Disease Heavy alcohol use High Blood Pressure High Cholesterol Physical inactivity and obesity Smoking Cigarette Smoking The facts are clear, cigarette smoking will shorten your life. Smoking can cause many illnesses along the way. As a healthcare provider, we recommend that you stop smoking. Assistance with quitting is available by contacting 2-058-XRQENOW. This is a free resource providing counseling, support, and referral. Or you may contact your personal physician. National Suicide Prevention Lifeline: The National Suicide Prevention Lifeline is a national network of local crisis centers that provides free and confidential emotional support to people in suicidal crisis or emotional distress 24 hours a day, 7 days a week. Don't Wait! Stop a Heart Attack Before it Starts What is a heart attack? A heart attack is damage or to a part of the heart from severely decreased or lack of blood flow to the heart. Over time, arteries can become narrow from the buildup of fat and cholesterol, which is called plaque. The plaque can rupture causing a blood clot to form. When the blood clot forms, the artery can become severely narrowed or completely blocked, causing a heart attack. Heart attack is the leading cause of in the [place]. 85% of muscle damage occurs within the first 2 hours. Delay in the recognition of heart attack symptoms increases the chances of . Know the early symptoms of a heart attack: Nausea Feeling of fullness in chest Jaw Pain Pain that travels down one or both arms Fatigue/being tired Anxiety Back Pain Chest pressure, squeezing, or discomfort Shortness of breath Sweating, or a cold sweat Feeling of impending doom There are unusual signs of a heart attack, too! Women, the elderly, and diabetics may present with atypical symptoms: Fainting/dizziness Weakness Confusion Risk Factors for a Heart Attack Some heart disease risk factors, such as age and family history, cannot be changed. Others, like smoking and lack of exercise, can be changed. Smoking High Cholesterol High Blood Pressure Family History Obesity Age Gender (Males are at higher risk) Lack of Exercise Diabetes Diet Stress Excessive Alcohol Intake If you or someone you know is experiencing the signs and symptoms of a heart attack, DON???T DELAY. Call immediately and seek help. If someone collapses, perform CPR! Do not attempt to drive if you are having symptoms of heart attack. Hands-Only CPR Why Hands-Only CPR? Hands-Only CPR has been shown to be as effective as conventional CPR for cardiac arrests that occur outside of a hospital. Survival depends on immediately receiving CPR from someone nearby. How do you perform Hands-Only CPR? There are two easy steps: Call if you see a teen or adult collapse Push hard and fast in the center of the chest at a beat of 100 beats per minute. Save a life! 4 WAYS TO GET AHEAD OF SEPSIS SEPSIS is a MEDICAL EMERGENCY. Time matters! Infections put you and your family at risk for a life-threatening condition called sepsis. Sepsis is the body's extreme response to an infection. It is life-threatening, and without timely treatment, sepsis can rapidly lead to tissue damage, organ failure, and . Sepsis happens when an infection you already have-in your skin, lungs, urinary tract or somewhere else-triggers a chain reaction throughout your body. 1 PREVENT INFECTIONS Take good care of chronic conditions. Talk to your doctor about getting the recommended vaccines. 2 PRACTICE GOOD HYGIENE Wash your hands frequently. Keep cuts or open sores clean and covered until they are healed. 3 KNOW THE SYMPTOMS Confusion or disorientation Shortness of breath High heart rate Fever, shivering, or feeling very cold Extreme pain or discomfort Clammy or sweaty skin 4 ACT FAST Get medical care IMMEDIATELY if you suspect sepsis or if you have an infection that is not getting better or is getting worse. To learn more about sepsis and how to prevent infections, visit www.cdc.gov/sepsis. Test Results Laboratory or Other Results This Visit (last charted value for your 12/07/2020 visit) Hematology 12/08/2020 2:48 AM WBC: 14.6 K/uL -- Normal range between ( 4.5 and 10.5 ) RBC: 3.54 Million/uL -- Normal range between ( 3.93 and 5.22 ) Hct: 30.9 % -- Normal range between ( 34.1 and 44.9 ) Hgb: 10.3 g/dL -- Normal range between ( 11.2 and 15.7 ) Platelet Count: 253 K/uL -- Normal range between ( 163 and 369 ) MCH: 29.1 pg -- Normal range between ( 25.6 and 32.2 ) MCHC: 33.3 Gram/dL -- Normal range between ( 32.2 and 36.5 ) MCV: 87.3 fL -- Normal range between ( 79.0 and 94.8 ) Slide Review: No RDW: 12.9 % -- Normal range between ( 11.7 and 14.9 ) MPV: 9.6 fL -- Normal range between ( 9.4 and 12.4 ) 11/19/2020 11:14 AM Eos %: 2.6 % -- Normal range between ( 0.0 and 7.0 ) [place] #: 0.57 K/uL -- Normal range between ( 0.16 and 1.00 ) Eos #: 0.26 x10(3)/uL -- Normal range between ( 0.00 and 0.80 ) [place] %: 5.7 % -- Normal range between ( 3.0 and 9.0 ) Baso %: 1.0 % -- Normal range between ( 0.0 and 1.5 ) Baso #: 0.10 x10(3)/uL -- Normal range between ( 0.00 and 0.20 ) Neut %: 46.8 % -- Normal range between ( 34.0 and 71.0 ) Neut #: 4.66 K/uL -- Normal range between ( 1.56 and 6.13 ) Lymph %: 43.5 % -- Normal range between ( 19.3 and 53.1 ) Lymph #: 4.34 x10(3)/uL -- Normal range between ( 1.00 and 3.90 ) IG#: 0.04 x10(3)/uL -- Normal range between ( 0.00 and 0.05 ) IG%: 0.40 % -- Normal range between ( 0.00 and 0.60 ) Microbiology 12/03/2020 1:53 PM SARS-CoV-2 (COVID19 PCR): Negative 11/19/2020 11:14 AM MRSA Surveillance: See Result General Chemistry 12/08/2020 3:19 PM Glucose POC2: 186 mg/dL -- Normal range between ( 70 and 110 ) Device Comment 1: Device Comment 1 12/08/2020 2:48 AM Creatinine Level: 0.90 mg/dL -- Normal range between ( 0.55 and 1.02 ) Sodium Level: 135 mmol/L -- Normal range between ( 136 and 146 ) Potassium Level: 3.8 mmol/L -- Normal range between ( 3.5 and 5.1 ) Chloride Level: 102 mmol/L -- Normal range between ( 102 and 112 ) Carbon Dioxide Level: 24 mmol/L -- Normal range between ( 21 and 32 ) Anion Gap: 13 -- Normal range between ( 9 and 20 ) Bun/Creatinine: 24.4 -- Normal range between ( 8.0 and 20.0 ) Calcium Level: 8.2 mg/dL -- Normal range between ( 8.4 and 10.1 ) eGFR : >60 mL/min/1.73m2 eGFR NonAfrican: >60 mL/min/1.73m2 Glucose Level: 137 mg/dL -- Normal range between ( 74 and 106 ) Blood Urea Nitrogen: 22 mg/dL -- Normal range between ( 7 and 22 ) 12/07/2020 12:15 PM Device Comment 2: Device Comment 2 11/19/2020 11:14 AM Hgb A1C: 6.4 % eAVG Glucose: 137 mg/dL Fructosamine: 217 Coagulation 11/19/2020 11:14 AM INR: 1.0 -- Normal range between ( 0.9 and 1.2 ) PTT: 28.5 Second(s) -- Normal range between ( 22.0 and 33.0 ) PT: 10.7 Second(s) -- Normal range between ( 9.2 and 12.0 ) Patient Name:LESLIE MARTÍNEZ I have received and understand this information and was given the opportunity to ask questions. Patient/Editor City Name: Patient/Editor City Signature: Relationship to Patient: Clinician/Hospital Editor City Signature: Date: documented in this encounter Plan of Treatment Not on file documented as of this encounter Visit Diagnoses Not on filedocumented in this encounter
--- OUTSIDE RECORDS SUMMARY | 2024-08-17 08:13 | XMS_ITS | Encounter Summary ---
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 [place] [facility] [place] [address] ProviderJason MD [address] [place] [id number] Social History Tobacco Use Types Packs/Day Years [...] Conversion Note - Historical ProviderMD - 12/07/2020 5:48 PM CDT Event Note Entered On: 12/07/2020 17:49 EDT Performed On: 12/07/2020 17:48 EDT by Ca Brennan RN-PATIENT CARE BEDSIDE NON-EXEMPT Event Note Event Date/Time : 12/07/2020 17:48 EDT Event Location : Assigned room Description of Event : Patient arrived from post op, dressing intact, CMS intact, alert/oriented, vitals stable. Ambulated to chair and then bathroom with OT Ca Brennan RN-PATIENT CARE BEDSIDE NON-EXEMPT - 12/07/2020 17:48 EDT Electronically signed by Ander Mckinney Conversion [employer] Pump Station Operator Cerner at 06/03/2022 8:53 AM CDT documented in this encounter Plan of Treatment Not on file documented as of this encounter Visit Diagnoses Not on filedocumented in this encounter
--- OUTSIDE RECORDS SUMMARY | 2024-08-17 08:13 | XMS_ITS | Encounter Summary ---
Author Organization [employer] ([place], [place], [place], [place]) Address [address] [place] [address] Care Team Providers Care Floor Director Name Role Phone Unavailable Primary Care Provider Unavailabl e Encounter Details Date Type Department Care Team (Late st Contact Info) Description 12/07/2020 Transcribed Document [facility] Family Medicine [facility] [place] [address] ProviderJason MD [address] [place] [address] Social History Tobacco Use Types [...] Note - Jason Jason MD - 12/07/2020 3:32 PM CDT Patient Education Materials Follows: Discharge Instructions for Total Knee Replacement Your Knee Incision: Do not swim, soak or bathe in a tub until cleared by the surgeon. If you have a light brown dressing: ?? Keep your dressing in place for 7-10 days. You may shower, but you must cover your incision or dressing with Glad Wrap Press N??? Seal or something that will keep your incision dry. ?? Your Physical Therapist will remove the dressing after 7-10 days. Or your surgeon will remove it at your return appointment. Then your incision may be open to air. If you shower, be sure to keep your incision dry until your follow-up appointment. Activity ?? You may put weight on your leg when you walk, unless your surgeon tells you differently. Use your walker until the therapist or surgeon say you do not need it anymore. Continue your exercises from physical therapy. ?? Use Zero Knee Foam as much as possible, AT LEAST three times a day for 30 minutes, keep toes pointed to ceiling. Keep knee straight and extended unless you are doing bending exercises. No pillow under knee. ?? Stay active, get up every 1-2 hours, walk short distances. No driving until cleared by your surgeon. ?? If your surgeon has ordered support hose, wear them for 3 weeks in order to prevent blood clots. Take them off 1-2 times per day for about 30 minutes-1 hour. Check your skin for red or open areas under the hose. They can be bought online and at many pharmacies, be sure that compression is at least 15-20mmHg. ?? For swelling, elevate your leg above your heart. Remember to keep knee straight and NOT bent, unless you are doing your bending exercises. ?? Cold therapy wrap as tolerated. Switch out cold gel pack every 4 - 5 hours. Cold therapy is for pain and swelling. Use it as long as your knee is painful or swollen. General Instructions: ?? Eat 25-35 grams of fiber every day. [...] contact your nurse navigator or surgeon???s office. ?? Continue using your incentive spirometer to keep fever and lung infection away. Aim for 10 breaths every hour while you are awake. ?? Take pain medicine as needed, especially before therapy. ?? Let your doctors and dentist know you have a prosthetic knee. They may need to give you an antibiotic before a procedure. Call Your Surgeon: 1. Infection: ?? Your knee has increased swelling that does not get better with time, propping up your leg and with rest. ?? Your incision has a foul smell or your incision begins to open. ?? Your incision gets red, is warm or has increased drainage after 2 days. ?? You have a fever over 101 degrees for more than 24 hours. 2. A Blood Clot: ?? You have increased swelling that does not get better with time, propping your leg and rest, and redness, warmth or pain in your calf. 3. A Fall: ?? You fall down without obvious injury. Call 911: 1. You have sudden chest pain and/or difficulty breathing 2. You fall and cannot get up CALL FIRST! Unless you are experiencing life-threatening issues, call your surgeon's office or nurse navigator first, before going to the Emergency Department. Call your surgeon or nurse navigator if: ?? Your incision has increased swelling that does not get better with time, rest, and propping up your leg ?? Your incision has a foul smell or begins to open ?? You have a large amount of bleeding from incision ?? Your incision gets red, warm or increased drainage after 2 days ?? You have a fever over 101 degrees for more than 24 hours ?? You have increased swelling, redness, warmth or pain in your calf ?? You fall, but don't have an obvious injury ?? You have questions or cause for concern regarding your total joint replacement Call 911 if: ?? You have sudden chest pain or shortness of breath ?? You fall and cannot get up ?? Life-threatening signs or symptoms ?? Stroke signs and symptoms: Facial droop, uneven smile, arm numbness, arm weakness, slurred speech, difficulty speaking or understanding If you are a patient of Dr. Quinteros or Dr. Juarez, call [phone] If you are a patient of Dr. Hernandez, call [phone] Nurse Navigator: Jesenia Burroughs Office: [phone]; ; available during regular business hours documented in this encounter Plan of Treatment Not on file documented as of this encounter Visit Diagnoses Not on filedocumented in this encounter
--- OUTSIDE RECORDS SUMMARY | 2024-08-17 08:13 | XMS_ITS | Data Portability ---
Author Organization LONNIE - Rory kellogg MD, Main Office Address [address] [place] [address] Care Team Providers Care Vocational Education Teacher Name Role Phone RAYMUNDO SNYDER Primary Care Provider [phone] Assessment No assessment recorded. Plan of Treatment Reminders Order Date Submit Date Provider Last Modified By Organization Details Last Modified Time Details Appointments None recorded. Lab myasthenia gravis Ab complete panel, serum 2024 025 [facility], [address], [address], [place], [address], 08:52:34 Referral None recorded. Procedures None recorded. Surgeries None recorded. Imaging MRI, brain, w/o contrast 2024 025 [facility], [address], [place], [address], 09:35:20 Medication Orders None recorded. Patient TargetsNo targets recorded. Patient Instructions Encounter Date Encounter Id Patient Instructions Last Modified By Organization Details Last Modified Time 07/11/2024 [id number] myasthenia gravis: care instructions Not available 07/11/2024 13:58:27 Finding has been discussed with the patient in detail. Brain MRI scan without contrast. Serology for myasthenia gravis. She is to have a modified barium swallow next week in [facility]. I will see her back in follow-up. Not available 07/11/2024 14:07:38 Reason for Referral None Reported. Results Created Date Observation Date Name Description Value Unit Range Abnormal Flag Note LastModifiedBy Organization Detail LastModifiedTime 07/30/19 25 07/26/2024 MRI, brain , w/o contr ast No observ ation record ed. [facility] [address], [place], [address], 07/29/2024 12:50:56 Result Notes None recorded. Problems [...] Not available Not available Not available 07/11/2024 [id number] RxNorm LONNIE Oneill MD 13:39:23 Medications [...] Last Updated DateTime 157.48 cm 38.4 kg/m2 95131.4 g 77 /min 17 /min 127/76 mm[Hg] Rory Burgos MD [address] [facility], [facility] [address], [place], [address] 0LONNIE MD 14:00:31 Social History Question Answer Notes LastModified by Organizat ion Details LastModified Time Tobacco Smoking Status Never Smoker Darshana Xavier chica, LONNIE Burgos MD 07/11/2024 13:47:26 Do You Have An [...] 2024 13:46:49 Father Hypertensive disorder Not available 05/29/ 2025 13:46:59 Sister Diabetes mellitus Not available 2024 [...] SNOMED-CT Code Diagnosis ICD10 Code Diagnosis Note [id number] Rory Burgos MD Main Office [address] [facility] [address] [place] [address] 07/11/2024 13:20:28 07/11/2024 14:08:48 Myasthenia gravis 51680192 G70.00 The patient is a 69-year-ol d white female. She has recent onset with this dysphagia and a sense of dry mouth. She also reported difficulty speaking at times. Bulbar myasthenia gravis needed to be excluded. Oropharyng eal dysphagia [id number] R13.12 I cannot exclude CVA or demyelinat ing disease. Health Concerns Section Related Observation LastModified by Organization Detai ls LastModified Time None Recorded Concern Status LastModified by Organization Details LastModified Time None Recorded Advance Directives Directive Y: Payers Insurance Date Sequence Insurance Name Policy Number Policy Rivas Covered Member ID Rivas Member ID Guarantor Name 07/16/2024 2 [employer] (MEDICARE SUPPLEMENT) [id number] 07/11/2024 1 [place] [facility] [id number] 1 [facility] 08/12/2024 2 [employer] [facility] [id number] [facility] Notes Date Note Type Note Provider Name a mi Address Organization Details Recorded Time 07/11/2024 text/html [...] any history of CVA. Rory Burgos MD [address] [facility], [place] [address], [place], [address], [facility] - Rory Burgos MD 07/11/2024 14:08:27 OBGyn Episode No OBEpisode recorded.
--- OUTSIDE RECORDS SUMMARY | 2024-08-17 08:13 | XMS_ITS | Encounter Summary ---
Author Organization [employer] ([place], [place], [place], [place]) Address [address] [place] [address] Care Team Providers Care Manager Medical Affairs Name Role Phone Unavailable Primary Care Provider Unavailabl e Encounter Details Date Type Department Care Team (Late st Contact Info) Description 04/12/2021 Transcribed Document [facility] [place] [address] [place] [address] ProviderJason MD [address] [place], [place] [id number] Social History Tobacco Use Types Packs/Day Years [...] Conversion Note - Jason ProviderMD - 04/12/2021 8:08 AM SCRAP HANDLER Spiritual Care Short Form Entered On: 04/12/2021 8:25 EST Performed On: 04/12/2021 8:08 EST by ASYA CUELLO General Information, Spiritual Care Spiritual Care Referred by : Patient Reason for Visit : Referral/Consult Ministry Provided to : Patient, Family/Significant other Intervention/Comment/Summary Points : Provided pre-surgery visit and prayer with patient and . Mu-Ism Preference : Taoist, Gurpreet ASYA CUELLO - 04/12/2021 8:24 EST documented in this encounter Plan of Treatment Not on file documented as of this encounter Visit Diagnoses Not on filedocumented in this encounter
--- OUTSIDE RECORDS SUMMARY | 2024-08-17 08:13 | XMS_ITS | Encounter Summary ---
Author Organization [email or web address] ([place], [place], [place], [place]) Address [address] [place] [address] Care Team Providers Care Air Tank Assembler Name Role Phone Unavailable Primary Care Provider Unavailabl e Encounter Details Date Type Department Care Team (Late st Contact Info) Description 04/12/2021 Transcribed Document [facility] Family Medicine [facility] [place] [address] ProviderJason MD [address] [place] [id number] Social History Tobacco Use Types Packs/Day Years [...] Conversion Note - Jason ProviderMD - 04/12/2021 10:47 AM GROUNDMAN/LINEMAN Orthopedic Nurse Navigator Entered On: 04/12/2021 10:49 EST Performed On: 04/12/2021 10:47 EST by EDUIN SUAZO RN-Ortho Nurse Navigator Orthopedic Nurse Navigator Assessment Attended Joint Academy : Yes Joint AcademyType : Online Joint Academy Date : 03/17/2021 EST Joint Vending Machine Servicer Name : , Moisés and son Type of Surgery : Total Knee Replacement, Left Anticipated Discharge Plan : Outpatient PT Anticipated Discharge Plan Comment : Pt plans to d/c home tomorrow with the help of her as she did with RTKA in November. She would like OPT at [facility] OPT as before as well. An appt was made for 04/14 at 11:00. SUAZO, EDUIN, RN-Ortho Nurse Navigator - 04/12/2021 10:47 EST Electronically signed by Interface, [facility] Conversion Differential Repairer Cerner at 06/03/2022 8:50 AM CDT documented in this encounter Plan of Treatment Not on file documented as of this encounter Visit Diagnoses Not on filedocumented in this encounter
--- OUTSIDE RECORDS SUMMARY | 2024-08-17 08:14 | XMS_ITS | Encounter Summary ---
Author Organization [employer] ([place], [place], [place], [place]) Address [address] [place] [address] Care Team Providers Care Helper Animal Laboratory Name Role Phone Unavailable Primary Care Provider Unavailabl e Encounter Details Date Type Department Care Team (Late st Contact Info) Description 04/13/2021 Transcribed Document [facility] Radiology [address] [place] [address] Marley Quinteros MD [facility] [place] [address] Social History Tobacco Use Types [...] Conversion Note - Marley Quinteros MD - 04/13/2021 9:21 AM EST Patient: LESLIE MARTÍNEZ Age: 65 Years Sex: Female : 1955 Admit Date 04/12/2021 06:58 Discharge Date 04/13/2021 Primary Care Provider RAYMUNDO SNYDER (REF)[facility] Discharge Diagnosis Left total knee arthroplasty Procedures SN - Proc - Procedure: Knee Total Joint Replacement (04/12/21 07:59:04) Reason for Hospitalization Pleasant 65-year-old female well-known to me from a recent right TKA. The patient has end-stage osteoarthritis of the [...] by nurse navigator/case management. Vital Signs T: 36.7 ??C TMIN: 36.4 ??C TMAX: 37 ??C HR: 76(Monitored) RR: 16 BP: 125/67 BP: 157/81(Sitting) BP: 133/74(Standing) BP: 110/57(Supine) SpO2: 96% HT: 160.02 cm WT: 102.73 kg BMI: 40.1 Oxygen Settings (Last) Oxygen Therapy Mode: Room air (04/12/21 20:32:00) Oxygen Flow Rate: 2 Liter/Min (04/12/21 11:53:00) Physical Exam The dressing is clean dry secure. The operative extremity is neurovascularly intact with the exception of that which is attributed to peripheral nerve block. Compartments are soft. Discharge Disposition Home with outpatient physical therapy [facility] Discharge Follow Up AZALIA PALMER PA - 12:30 PM [facility] Outpatient Physical Therapy - 11:00 AM Discharge Medications (15) Active aspirin 81 mg, Oral, [...] 1,000 mcg = 1 Tab, Oral, Daily Code Status Start: 04/12/21 11:53:00 EST, Full Code, Continuous Order Condition on Discharge Stable Consulting Physicians GARCÍA PEREZ MD-RANGEL IVERSON MD ([facility] in Pre-Op holding area.) - medical mgt Current Diet Order Diet, Adult - Ordered -- Start: 04/12/21 14:00:00 EST, Cardiac Diet, 60 gm carbs:4587-3658 fela, Isolation: Standard Precautions Patient Discharge Summary Orders [...] swelling. Pending Labs In Process SENDOUT REPORT [id number], [id number], RT - Routine, 04/12/21 9:59:00 EST Pathology Tissue Request [id number], [id number], 04/12/21 9:59:00 EST, Collected, RT - Routine, 04/12/21 10:47:22 EST, MARINA SANTILLAN Histdenisech, Specimen Type: AP Specimen, Specimen Desc: LEFT KNE BONE AND TISSUE Ordered CBC no Diff (Hemogram) Specimen Type: Blood, AM Draw collect, 04/13/21 4:00:00 EST, Daily, For: 3 Day(s), Stop: 04/15/21 4:00:00 EST, Nurse Collect BMP Basic Metabolic Panel Specimen Type: Blood, AM Draw collect, 04/13/21 4:00:00 EST, Daily, For: 2 Day(s), Stop: 04/14/21 4:00:00 EST, Nurse Collect Time Spent on Discharge 15 minutes Patient was seen and examined by Dr. Quinteros with myself, Azalia Palmer PA-C, present in room. All medical decision making was discussed with patient. [1] Left TKA op Note; MARLEY QUINTEROS MD-ORT 04/12/2021 09:56 EST documented in this encounter Plan of Treatment Not on file documented as of this encounter Visit Diagnoses Not on filedocumented in this encounter
--- OUTSIDE RECORDS SUMMARY | 2024-08-17 08:14 | XMS_ITS | Encounter Summary ---
Author Organization [employer] ([place], [place], [place], [place]) Address [address] [place] [address] Care Team Providers Care Mutual Fund Sales Agent Name Role Phone Unavailable Primary Care Provider Unavailabl e Encounter Details Date Type Department Care Team (Late st Contact Info) Description 04/12/2021 Transcribed Document [facility] [place] [facility] [place] [address] ProviderJason MD [address] [place] [address] Social History Tobacco Use Types [...] Conversion Note - Jason ProviderMD - 04/12/2021 7:40 AM TECHNICIAN SUPPORT ENGINEER Peripheral Nerve Block Entered On: 04/12/2021 7:41 EST Performed On: 04/12/2021 7:40 EST by Marisol Hernández Rn Peripheral Nerve Block Peripheral Nerve Block End Date/Time : 04/12/2021 7:46 EST Marisol Hernández Rn - 04/12/2021 7:46 EST Peripheral Nerve Block Start Date/Time : 04/12/2021 7:38 EST Verbally Confirm Pt, Site, and Procedure : Yes Time Out Pause Time : 04/12/2021 7:37 EST Site Marked and Visible : Yes Site Preparation : 2 minute scrub plus 1 minute dry time Peripheral Nerve Block : Adductor Canal, iPack Laterality : Left Peripheral Nerve Block Performed by : XOCHITL ALY MD-ANS Medication Delivery Method : Single Shot Peripheral Nerve Block Assisted by : JITENDRA Zheng RN Ultra sound used during insertion : Yes Nerve Block Activity, Patient Tolerance : Good Marisol Hernández Rn - 04/12/2021 7:40 EST Electronically signed by Faye [facility] Conversion Shop Manager Cerner at 06/03/2022 8:54 AM CDT documented in this encounter Plan of Treatment Not on file documented as of this encounter Visit Diagnoses Not on filedocumented in this encounter
--- OUTSIDE RECORDS SUMMARY | 2024-08-17 08:14 | XMS_ITS | Encounter Summary ---
Author Organization [employer] ([place], [place], [place], [place]) Address [address] [place] [address] Care Team Providers Care Extract Mixer Name Role Phone Unavailable Primary Care Provider Unavailabl e Encounter Details Date Type Department Care Team (Late st Contact Info) Description 04/13/2021 Transcribed Document [facility] [place] [facility] [place] [address] ProviderJason MD [address] [place] [address] Social History Tobacco Use Types [...] Conversion Note - Jason Jason MD - 04/13/2021 10:22 AM COMPTROLLER Patient Education Materials Follows: Discharge Instructions for [...] 2. You fall and cannot get up Aspirin ?? What is this medication used for? ?? Mild antiplatelet agent, used to treat mild to moderate pain, used for heart health and stroke prevention. ?? DO NOT crush or chew enteric coated pills. ?? Notify MD before having or when planning surgery, aspirin may need to be held. ?? If you take aspirin regularly to prevent a heart attack or stroke, you should not take ibuprofen (Advil, Motrin) or other non-steroidal anti-inflammatory drugs, such as naproxen or diclofenac, to treat pain without first talking to your doctor. ?? Alcohol and tobacco products can increase your risk of stomach bleeding while taking aspirin. Recommend avoiding these agents during therapy. ?? Always take with a full glass of water. Side Effects: ? Nausea/Vomiting ? Drowsiness/Headache ? Shortness of breath or difficulty breathing 1 Black tarry stools 2 Angioedema (skin reaction similar to hives) 3 Risk of bleeding 4 Stomach upset or pain 5 Tinnitus (ringing in the ears) CALL FIRST! Unless you are experiencing life-threatening [...] of Dr. Quinteros or Dr. Juarez, call [phone] If you are a patient of Dr. Hernandez, call [phone] Nurse Navigator: Jesenia Burroughs Office: [phone]; ; available during regular business hours Electronically signed by Faye [facility] Conversion Sketch Liner Cerner at 06/03/2022 8:52 AM CDT documented in this encounter Plan of Treatment Not on file documented as of this encounter Visit Diagnoses Not on filedocumented in this encounter
--- OUTSIDE RECORDS SUMMARY | 2024-08-17 08:14 | XMS_ITS | Encounter Summary ---
Author Organization [employer] ([place], [place], [place], [place]) Address [address] [place] [address] Care Team Providers Care Greeting Card Editor Name Role Phone Unavailable Primary Care Provider Unavailabl e Encounter Details Date Type Department Care Team (Late st Contact Info) Description 04/12/2021 Transcribed Document [facility] Family Medicine [facility] [place] [address] ProviderJason MD [address] [place] [address] Social History Tobacco Use Types [...] Conversion Note - Jason ProviderMD - 04/12/2021 10:46 AM SOFTWARE BUSINESS ANALYST Pain Assessment Entered On: 04/12/2021 11:51 EST Performed On: 04/12/2021 11:11 EST by JENNI GUEVARA RN Intervention Information: fentaNYL Performed by JENNI GUEVARA RN on 04/12/2021 10:41:00 EST fentaNYL,25mcg IV Push,Left Hand,Pain (Moderate 4-6) Pain Assessment Pain Assessment : Follow-up assessment Pain Scale Goal : 4 Pain Scale Used : 0-10 Scale Location : Knee, left JENNI GUEVARA RN - 04/12/2021 11:51 EST Pain Scale Intensity : 5 JENNI GUEVARA RN - 04/12/2021 11:51 EST Image 4 - Images currently included in the form version of this document have not been included in the text rendition version of the form. documented in this encounter Plan of Treatment Not on file documented as of this encounter Visit Diagnoses Not on filedocumented in this encounter
--- OUTSIDE RECORDS SUMMARY | 2024-08-17 08:14 | XMS_ITS | Encounter Summary ---
Author Organization [employer] ([place], [place], [place], [place]) Address [address] [place] [address] Care Team Providers Care Regulatory And Compliance Technician Name Role Phone Unavailable Primary Care Provider Unavailabl e Encounter Details Date Type Department Care Team (Late st Contact Info) Description 04/13/2021 Transcribed Document [facility] [place] [facility] [place] [address] ProviderJason MD [address] [place] [address] Social History Tobacco Use Types Packs/Day [...] Cerner Conversion Note - Historical ProviderMD - 04/13/2021 12:05 PM SOFTWARE QUALITY ANALYST Discharge Summary, PT Entered On: 04/13/2021 12:05 EST Performed On: 04/13/2021 12:05 EST by KISHA RAYGOZA PT Discharge Summary Discharge Summary Provider Notified : Nursing, Referring provider Reason for Discharge : Discharged from hospital, All goals met Discharge Summary Comment, PT : Pt has currently met 3/3 goals for therapy and is appropriate for discharge from therapy services s/p L TKA. Pt's current L knee ROM is 0-100 degrees. Pt is ambulatory with SBA x 150ft with RWx and performs all bed mobility and sit-stand transfer with a rolling walker and independence/modified independence. Pt has successfully navigated 5 stairs with single rail andC GA with proper sequencing and was issued an HEP for continued LLE ROM and strengthening. Pt thoroughly educated about emphasizing ROM tasks and use of Bone Foam during acute phase of TKA rehab. KISHA RAYGOZA, PT - 04/13/2021 12:05 EST documented in this encounter Plan of Treatment Not on file documented as of this encounter Visit Diagnoses Not on filedocumented in this encounter
--- OUTSIDE RECORDS SUMMARY | 2024-08-17 08:14 | XMS_ITS | Encounter Summary ---
Author Organization [employer] ([place], [place], [place], [place]) Address [address] [place] [address] Care Team Providers Care Town Administrator Name Role Phone Unavailable Primary Care Provider Unavailabl e Encounter Details Date Type Department Care Team (Late st Contact Info) Description 04/12/2021 Transcribed Document [facility] [place] Medicine [facility] [place] [address] ProviderJason MD [address], [place] [id number] Social History Tobacco Use Types Packs/Day Years [...] Conversion Note - Jason ProviderMD - 04/12/2021 12:23 PM DRY CLEANING MANAGER Pain Assessment Entered On: 04/13/2021 9:14 EST Performed On: 04/13/2021 9:09 EST by Philly Lagunas RN-PATIENT CARE BEDSIDE NON-EXEMPT Intervention Information: oxyCODONE Performed by Philly Lagunas RN-PATIENT CARE BEDSIDE NON-EXEMPT on 04/13/2021 08:09:00 EST oxyCODONE,5mg Oral,Pain (Moderate 4-6) Pain Assessment Pain Assessment : Follow-up assessment Pain Scale Goal : 4 Pain Scale Used : 0-10 Scale Philly Lagunas RN-PATIENT CARE BEDSIDE NON-EXEMPT - 04/13/2021 9:14 EST Pain Scale Intensity : 2 Philly Lagunas RN-PATIENT CARE BEDSIDE NON-EXEMPT - 04/13/2021 9:14 EST Image 4 - Images currently included in the form version of this document have not been included in the text rendition version of the form. documented in this encounter Plan of Treatment Not on file documented as of this encounter Visit Diagnoses Not on filedocumented in this encounter
--- OUTSIDE RECORDS SUMMARY | 2024-08-17 08:14 | XMS_ITS | Clinical Summary ---
Author Organization [employer] ([place], [place], [place], [place]) Address [address] [place] [address] Care Team Providers Care City Assessor Name Role Phone Unavailable Primary Care Provider Unavailabl e Social History Tobacco Use Types Packs/Day Years Used Date Smoking Tobacco: Never Assessed Comments Unknown Sex and Gender Information Value Date Recorded Sex Assigned at Female 08/10/2021 7:43 PM CDT Legal Sex Female 7:43 PM CDT Gender Identity Female 08/10/2021 7:43 PM CDT Sexual Orientation Not on file Plan of Treatment Not on file
--- OUTSIDE RECORDS SUMMARY | 2024-08-17 08:14 | XMS_ITS | Encounter Summary ---
Author Organization [employer] ([place], [place], [place], [place]) Address [address] [place] [address] Care Team Providers Care Grocery Deliverer Name Role Phone Unavailable Primary Care Provider Unavailabl e Encounter Details Date Type Department Care Team (Late st Contact Info) Description 04/12/2021 Transcribed Document [facility] [place] [facility] [place] [address] ProviderJason MD [facility] [place] [id number] Social History Tobacco Use Types Packs/Day Years [...] Conversion Note - Historical ProviderMD - 04/12/2021 6:57 AM 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 Admission History, Adult Entered On: 04/12/2021 12:14 EST Performed On: 04/12/2021 12:11 EST by Philly Lagunas RN-PATIENT CARE BEDSIDE NON-EXEMPT Advance Directive Patient has Advance Directive *Q : No, patient refuses Advance Directive information Philly Lagunas RN-PATIENT CARE BEDSIDE NON-EXEMPT - 04/12/2021 12:11 EST Anesthesia/Transfusion History Family History of Anesthesia Reaction : No prior transfusion(s) Blood Transfusion Acceptable to Patient : Yes Transfusion History : Prior anesthesia reaction Type of Anesthesia Reaction : Excessive nausea/vomiting Family History of Anesthesia Reaction : None Philly Lagunas RN-PATIENT CARE BEDSIDE NON-EXEMPT - 04/12/2021 12:11 EST Functional Assessment Living Situation : Home Patient Lives With : Spouse Current Home Treatments : None Philly Lagunas RN-PATIENT CARE BEDSIDE NON-EXEMPT - 04/12/2021 12:11 EST General Info Preferred Name : Tracy Arrived From : Home Mode of Arrival on Unit : Ambulatory Legal Guardian : Spouse Want Family/Rep/Phys Notified of Admit : No Emergency Contact #1 : DR AZALIA MARTÍNEZ Emergency Contact #1 Emergency Contact #1 Relationship : SON Emergency Contact #2 : 00 Emergency Contact #2 Phone Number : 00 Emergency Contact #2 Relationship : 00 Information Obtained From : Patient Primary Language : Arabic Preferred Communication Mode : Verbal Communication Barrier : None Studio Musician Needed : No Philly Lagunas RN-PATIENT CARE BEDSIDE NON-EXEMPT - 04/12/2021 12:11 EST Fall Risk Scales ABCs Fall Injury Risk Identification : Age, Bones, Coagulation, Surgery ABC Fall Injury Risk : Moderate to high injury risk WAN Hx Falls Immediate/Within 3 Months : No Wan Secondary Diagnosis : Yes WAN Use of Ambulatory Aid : Bed rest/Nurse assist WAN IV Therapy or IV Access : Yes Wan Gait/Transferring : Weak Savage Mental Status : Oriented to own ability Wan Fall Risk Score : 45 WAN Fall Scale Risk Level : 25-45 Medium Risk Bovill Fall Interventions : Adequate lighting, Assistive devices within reach, Bed in low position, Call device within reach, Frequent orientation to call device, Frequent orientation to surroundings, Hourly comfort/safety rounds, Non-slip footwear, Personal items within reach, Reinforced to call for assistance before getting out of bed, Room free of clutter/spills, Upper side-rails up, Wheels locked, Wires/Cords secured Philly Lagunas RN-PATIENT CARE BEDSIDE NON-EXEMPT - 04/12/2021 12:11 EST Health Histories Smoking Status : Never (less than 100 in lifetime; none in last 30 days) Smokeless Tobacco Status : Never Implant/Device Type, Rubber Goods Tester Water and Model : right knee replaced Philly Lagunas RN-PATIENT CARE BEDSIDE NON-EXEMPT - 04/12/2021 12:11 EST Social History (As Of: 04/12/2021 12:14:26 EST) Tobacco: Use in Last 12 Months: [...] 11/19/2020 11:19:17 EDT by YARIEL CAVAZOS RN) Height and Weight, Clinical Dosing Height Source : Measured Height Entry Format : [place] Height, Feet : 5 ft(Converted to: 152 cm, 60 Inch) Height, Inches : 3 Inch(Converted to: 0 ft 3 Inch, 7.62 cm) Clinical Height : 160.02 cm Weight Source : Standing scale Weight Entry Format : [place] Clinical Dosing Weight : 102.73 kg Weight, Pounds : 226 lb Body Surface Area (BSA) : 2.04 m2 Body Mass Index : 40.1 kg/m2 (>HHI) [place] Body Weight : 52 kg Philly Lagunas RN-PATIENT CARE BEDSIDE NON-EXEMPT - 04/12/2021 12:11 EST Infectious Disease History Does patient have symptoms of COVID-19? : No Has the Patient Been Tested for COVID-19 in the last 14 days? : PreProcedure/NON-PUI COVID-19 Testing Does the Patient state known exposure to a COVID-19 positive case in the last 14 days? : No Patient Vaccinated for COVID-19 : Fully vaccinated Philly Lagunas RN-PATIENT CARE BEDSIDE NON-EXEMPT - 04/12/2021 12:11 EST Infectious Disease Risk Screening Grid Cough < 2 wks of unknown origin : NO Cough > 2 weeks : NO Blood in Sputum : NO Fever or self-reported Fever : NO Rash of unknown origin : NO Headache : NO Stiff neck : NO Night Sweats : NO Unexplained Weight Loss : NO Diarrhea (3 episode per day) : NO Philly Lagunas RN-PATIENT CARE BEDSIDE NON-EXEMPT - 04/12/2021 12:11 EST Physical contact outside [place] in the last 30 days : No Hospitalized in Foreign Country : No Infectious Disease History : Chicken pox/Shingles, Influenza, Measles, Mumps INF Disease TB Screening Calc : 0 INF Disease Recent Travel Calc : 0 Philly Lagunas RN-PATIENT CARE BEDSIDE NON-EXEMPT - 04/12/2021 12:11 EST Influenza Vaccine Asmt, Adult Previous Vaccines from Immunization Schedule : Previous Vaccines and Immunizations SARS-CoV-2 (COVID-19) mRNA-1273 vaccine: 0 unknown unit (11/16/20 00:00:00) SARS-CoV-2 (COVID-19) mRNA-1273 vaccine: 0 unknown unit (03/25/20 00:00:00) SARS-CoV-2 (COVID-19) mRNA-1273 vaccine: 0 unknown unit (02/26/20 00:00:00) Influenza Immunization, Current Season : Yes Philly Lagunas RN-PATIENT CARE BEDSIDE NON-EXEMPT - 04/12/2021 12:11 EST Pneumococcal Vaccine Previous Vaccines from Immunization Schedule : Previous Vaccines and Immunizations SARS-CoV-2 (COVID-19) mRNA-1273 vaccine: 0 unknown unit (11/16/20 00:00:00) SARS-CoV-2 (COVID-19) mRNA-1273 vaccine: 0 unknown unit (03/25/20 00:00:00) SARS-CoV-2 (COVID-19) mRNA-1273 vaccine: 0 unknown unit (02/26/20 00:00:00) Pneumonia Immunization Received : Yes Philly Lagunas RN-PATIENT CARE BEDSIDE NON-EXEMPT - 04/12/2021 12:11 EST Order Details Patient Needs Meds Crushed/Liquid : No Philly Lagunas RN-PATIENT CARE BEDSIDE NON-EXEMPT - 04/12/2021 12:11 EST Nutrition History Eating Poorly Due to Decreased Appetite : No Unplanned Weight Loss in Past 3-6 Months : No Malnutrition Screening Tool Total(mal) : 0 Malnutrition Screening Tool Risk Level : Patient not at risk Philly Lagunas RN-PATIENT CARE BEDSIDE NON-EXEMPT - 04/12/2021 12:11 EST [place] Suicide Severity Rating Scale (C-SSRS) CSSRS Past Month Wish to be : No CSSRS Past Month Suicidal Thoughts : No CSSRS Lifetime Suicide Behavior : No Suicide Severity Rating Score : 0 Suicide Severity Rating : No Additional Care Required at this time Philly Lagunas RN-PATIENT CARE BEDSIDE NON-EXEMPT - 04/12/2021 12:11 EST Psychosocial History Does Someone Depend on You for Care? : No Do You Have a History of the Following? : Patient denies history Currently in Unsafe Situation : No Philly Lagunas RN-PATIENT CARE BEDSIDE NON-EXEMPT - 04/12/2021 12:11 EST Sleep Apnea Risk Assmt Hx of Obstructive [...] Sleep Apnea Risk Level Score : 5 Philly Lagunas RN-PATIENT CARE [facility] NON-EXEMPT - 04/12/2021 12:11 EST Valuables and Belongings Valuables and Belongings : Clothing Clothing : Common streetwear Clothing Disposition : Bedside Philly Lagunas RN-PATIENT CARE [facility] NON-EXEMPT - 04/12/2021 12:11 EST documented in this encounter Plan of Treatment Not on file documented as of this encounter Visit Diagnoses Not on filedocumented in this encounter
--- OUTSIDE RECORDS SUMMARY | 2024-08-17 08:14 | XMS_ITS | Clinical Summary ---
Author Organization Healthcare Address [address] [place] [address] Care Team Providers Care Tuber Helper Name Role Phone Ziyad Salomon MD Primary Care Provider + [phone] Allergies Active Allergy Reactions Criticality Noted Date Comments Tetracyclines & Related Rash,Unknown - P atient states they do not know rxn details Low 10/26/2016 Medications levothyroxine (Synthroid, Levoxyl) 137 MCG tablet 10/20/2020 Active metFORMIN XR (Glucophage-XR) 500 MG 24 hr tablet 10/15/2020 Active fexofenadine (Shalonda) 180 MG tablet 1 (one) time each day. Active atorvastatin (Lipitor) 80 MG tablet TAKE 1 TABLET BY MOUTH EVERYDAY AT BEDTIME 08/07/2020 Active Aspirin Buf,CaCarb-MgCa rb-MgO, 81 MG tablet 10/29/2019 Active famotidine (Pepcid) 20 MG tablet Take 20 mg by mouth 2 (two) times a day. 07/17/2020 Active cyanocobalamin (Vitamin B-12) 100 MCG tablet Take 100 mcg by mouth 1 (one) time each day. Active bisoprolol (Zebeta) 5 MG tablet Take by mouth 1 (one) time each day. Active Azilsartan-Chlo rthalidone 40-25 MG tablet Take by mouth. Active biotin 5 MG capsule Take 5 mg by mouth 1 (one) time each day. Active Probiotic Product (PROBIOTIC-10 PO) Take by mouth. Active co-enzyme Q-10 30 MG capsule Take 30 mg by mouth 1 (one) time each day. 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 Adrenal nodule 10/30/2020 Immunizations Immunization Administration Dates Next Due PPD Skin Test (TB Skin Test) 08/29/2006, 06/20/2005,09/20/2004,05/06/2003, Family History Medical History Relation Name Comments Cardiac disorder Father Colon cancer Father FH: colon cance r Hypertension Father Other cancer Father Cardiac disorder Mother Colon cancer Mother FH: colon cance r Diabetes Mother Hypertension Mother Other cancer Mother Conversions - Other Other 1 high blo od pressure Hyperlipidemia Other 2 Family histor y of high cholesterol Arthritis Other 3 FH: arthritis Asthma Other 4 FH: asthma Conversions - Other Other 5 congenit al heart problem Diabetes Other 6 FH: diabetes me llitus Stroke Other 7 FH: stroke Conversions - Other Other 8 FHx: all ergies Relation Name Status Comments Father Mother Other 1 Other 2 Other 3 Other 4 Other 5 Other 6 Other 7 Other 8 Social History Tobacco Use Types Packs/Day Years Used Date Smoking Tobacco: Never Smokeless Tobacco: Never Alcohol Use Standard Drinks/Week Comments Yes 0 (1 standard drink = 0.6 oz pure alcohol) Alcoholic Drinks/day: Occasional alcohol use PHQ-2 Answer Date Recorded Patient Health Questionnaire-2 Score 0 07/01/2021 Comments Unknown Sex and Gender Information Value Date Recorded Sex Assigned at Not on file Legal Sex Female 8:46 PM EDT Gender Identity Not on file Sexual Orientation Not on file Last Filed Vital Signs Vital Sign Reading Time Taken Comments Blood Pressure 102/63 12/23/2020 1:23 PM EST Pulse 72 12/23/2020 1:23 PM EST Temperature 36.9 C (98.4 F) 12/23/2020 1:23 PM EST Respiratory Rate 20 10/22/2020 9:14 AM EDT Oxygen Saturation 97% 10/22/2020 9:14 AM EDT Inhaled Oxygen Concentration - - Weight 103 kg (228 lb) 12/23/2020 1:23 PM EST Height 160 cm (5' 3 ) 12/23/2020 1:23 PM EST Body Mass Index 40.39 12/23/2020 1:23 PM EST Plan of Treatment Health Maintenance Due Date Last Done Comments [facility]-Bone Density Scan 1955 [facility]-Depression Screening 1955 [facility]-Infant/Child/Adol SDOH Screenings 1955 [facility]- SDOH Screenings 06/06/1971 [facility]-Adult SDOH Screenings 06/06/1971 CT Colonography 1998 Colonoscopy 1998 FIT-DNA 1998 FIT 1998 FOBT 1998 Sigmoidoscopy 1998 [facility]-Colorectal Cancer Screening 1998 [facility]-Pneumococcal Vaccine: 50 + Years (2 of 2 - PCV) 11/10/2019 11/09/2018 [facility]-Zoster Vaccines (2 of 2) 04/12/2021 02/15/2021 [id number] Vaccine (4 - 2023- season) 2023 11/16/2020, 03/25/2020, 02/26/2020 [facility]-Influenza Vaccine (#1) 2024 [facility]-RSV Vaccine: 60+ Years o r (1 - 1-dose 75+ series) 2028 [facility]-DTaP,Tdap,and Td Vaccine s (2 - Td or Tdap) 02/15/2031 02/15/2021 HPV Vaccines Aged Out No longer eligi ble based on patient's age to complete this topic [facility]-HIB Vaccines Aged Out No longer e ligible based on patient's age to complete this topic [facility]-Hepatitis A Vaccines Aged Out No longer eligible based on patient's age to complete this topic [facility]-IPV Vaccines Aged Out No longer e ligible based on patient's age to complete this topic [facility]-Rotavirus Vaccines Aged Out No lo nger eligible based on patient's age to complete this topic [place] [address] Care Teams Tuber Helper Relationship Specialty Start Date End Date Ziyad Salomon MD [address] [place] [address] [place] [address] PCP - General 06/26/20
--- OUTSIDE RECORDS SUMMARY | 2024-08-17 08:14 | XMS_ITS | Encounter Summary ---
Author Organization [employer] ([place], [place], [place], [place]) Address [address] [place] [address] Care Team Providers Care Glass Novelty Maker Name Role Phone Unavailable Primary Care Provider Unavailabl e Encounter Details Date Type Department Care Team (Late st Contact Info) Description 04/12/2021 Transcribed Document [facility] Radiology [address] [place] [address] Gisele Quinteros MD [facility] [place] [address] Social History Tobacco Use Types [...] Note - Gisele Quinteros MD - 04/12/2021 10:56 AM EST Patient: LESLIE MARTÍNEZ Age: 65 Years Sex: Female : 1955 *Operation Left total knee arthroplasty Indication for Surgery Pleasant 65-year-old female well-known to me from a recent right TKA. The patient has end-stage osteoarthritis of the above-mentioned knee. They have otherwise failed conservative measures and now present for total knee arthroplasty. The risks benefits and alternatives have been explained to the patient in detail and they have voiced their agreement. *Preoperative Diagnosis Osteoarthritis left knee *Postoperative Diagnosis Osteoarthritis left knee *Surgeon(s) Surgeon: Aldair Cnc Service Engineer: Moisés Taylor CSA *Procedure Narrative Patient identified [...] and PCL were resected. Next, distal femoral drone pilot hole was drilled and the intramedullary guide [...] with a Bovie. Femur was sized. The FuLabochemaon gap vice president of manufacturing was placed and tensed. Posterior condyle resection as noted above. Drill holes made through the vice president of manufacturing and the appropriately sized four-in-one block placed [...] the case. Drains/Packs Used None Anesthesia General endotracheal anesthesia with adductor canal nerve block and IPACK block *Estimated Blood Loss 50 cc *Findings Abx: 2g Ancef Implants: Gopal Persona femoral component: 8 narrow CR Gopal Persona tibial baseplate: E Tibial insert: 14 mm MC Patellar button: 32 mm symmetric Patellar preparation: reamed Patellar button position: medialized Patella denervated: yes Pre op deformity: 8 degrees varus Correctable: yes Flexion contracture: none Distal femoral cut: 5 deg, 9 mm Proximal tibial cut: 10 mm off lateral side Releases in extension: Deep MCL, PM capsule, PM tibial osteophyte Initial extension gap: 23 mm Posterior condylar resection: 23 mm Pre-reconstructed patellar thickness: 24.5 mm Post-reconstructed patellar thickness: 24.5 mm Stability: 0- 0 mm 20- 0 mm 90- 0 mm Patellar tracking: normal Lateral release: no ROM with capsule closed: 0-120 Tourniquet pressure: 250 mmHg Tourniquet time: 52 min Other: none *Specimen(s) Bone to pathology Complications None Technique Cemented Gopal medial congruent TKA Date of Service No qualifying data available. documented in this encounter Plan of Treatment Not on file documented as of this encounter Visit Diagnoses Not on filedocumented in this encounter
--- OUTSIDE RECORDS SUMMARY | 2024-08-17 08:14 | XMS_ITS | Encounter Summary ---
Author Organization [employer] ([place], [place], [place], [place]) Address [address] [place] [address] Care Team Providers Care Purification Operator Name Role Phone Unavailable Primary Care Provider Unavailabl e Encounter Details Date Type Department Care Team (Late st Contact Info) Description 04/12/2021 Transcribed Document [facility] [place] Family Medicine [address] [place] [address] ProviderJason MD [address] [place] [id number] Social History Tobacco Use Types Packs/Day Years [...] Conversion Note - Historical ProviderMD - 04/12/2021 5:00 PM MEDICAL CODING MANAGER Chart Check - Review Order Profile Entered On: 04/12/2021 17:01 EST Performed On: 04/12/2021 17:00 EST by Philly Lagunas RN-PATIENT CARE BEDSIDE NON-EXEMPT Chart Check Powerplans Initiated/Discontinued as Appropriate : Yes All Active Orders Reviewed : Yes Philly Lagunas RN-PATIENT CARE BEDSIDE NON-EXEMPT - 04/12/2021 17:01 EST documented in this encounter Plan of Treatment Not on file documented as of this encounter Visit Diagnoses Not on filedocumented in this encounter
--- OUTSIDE RECORDS SUMMARY | 2024-08-17 08:14 | XMS_ITS | Encounter Summary ---
Author Organization [employer] ([place], [place], [place], [place]) Address [address] [place] [address] Care Team Providers Care Pricing/Signage Team Member Name Role Phone Unavailable Primary Care Provider Unavailabl e Encounter Details Date Type Department Care Team (Late st Contact Info) Description 04/12/2021 Transcribed Document [facility] [place] [facility] [place] [address] ProviderJason MD [address] [place] [address] Social History Tobacco Use Types [...] - Jason ProviderMD - 04/12/2021 12:23 PM INDUSTRIAL HEALTH ENGINEER Pain Assessment Entered On: 04/12/2021 13:17 EST Performed On: 04/12/2021 14:05 EST by Philly Lagunas RN-PATIENT CARE BEDSIDE NON-EXEMPT Intervention Information: acetaminophen Performed by Philly Lagunas RN-PATIENT CARE BEDSIDE NON-EXEMPT on 04/12/2021 13:05:00 EST acetaminophen,1000mg Oral Pain Assessment Pain Assessment : [...]
--- OUTSIDE RECORDS SUMMARY | 2024-08-17 08:14 | XMS_ITS | Encounter Summary ---
Author Organization [employer] ([place], [place], [place], [place]) Address [address] [place] [address] Care Team Providers Care Programmer Engineering And Scientific Name Role Phone Unavailable Primary Care Provider Unavailabl e Encounter Details Date Type Department Care Team (Late st Contact Info) Description 04/13/2021 Transcribed Document [facility] [place] [address] [place] [address] ProviderJason MD [address] [place] [address] Social History Tobacco Use Types [...] Conversion Note - Historical ProviderMD - 04/13/2021 10:18 AM FOUNDRY HELPER Stroke/Warfarin Instructions Entered On: 04/13/2021 10:18 EST Performed On: 04/13/2021 10:18 EST by Comfort Reinoso RN-[employer] Stroke/Warfarin Instructions Stroke/TIA Discharge Ins : N/A Warfarin Discharge Ins : N/A Comfort Reinoso RN-[employer] - 04/13/2021 10:18 EST Education Topics: Anticoagulant Education Anticoagulant : Anticoagulant other than warfarin Compliance Issues *Q : Verbalizes understanding Diet *Q : Verbalizes understanding Adverse drug reactions/interactions *Q : Verbalizes understanding Action/Interaction with Other Drugs : Verbalizes understanding Follow-up care/monitoring *Q : Verbalizes understanding Follow-up Care Details : Physician's office/clinic Comfort Reinoso RN-[employer] - 04/13/2021 10:18 EST documented in this encounter Plan of Treatment Not on file documented as of this encounter Visit Diagnoses Not on filedocumented in this encounter
--- OUTSIDE RECORDS SUMMARY | 2024-08-17 08:14 | XMS_ITS | Encounter Summary ---
Author Organization [employer] ([place], [place], [place], [place]) Address [address] [place] [address] Care Team Providers Care Client Liaison Name Role Phone Unavailable Primary Care Provider Unavailabl e Encounter Details Date Type Department Care Team (Late st Contact Info) Description 04/13/2021 Transcribed Document [facility] Family Medicine [facility] [place] [address] ProviderJason MD [address] [place] [id number] Social History Tobacco Use Types Packs/Day [...] Note - Jason Jason MD - 04/13/2021 3:00 PM POURER Patient: LESLIE MARTÍNEZ Age: 65 years Sex: Female : 1955 Associated Diagnoses: None Author: SHONDA BENNETT MD-INT Subjective 65-year-old female with a history of hypertension, hyperlipidemia, hypothyroidism, type 2 diabetes presents as an outpatient for a left total knee arthroplasty. She tolerated procedure well yesterday I saw her in the morning. She complains of pain but better 1-2/10. however is alert and oriented. Denies any other acute complaints. ROS: no fever, no cp or SOB Health Status Allergies: Allergic Reactions (Selected) Severity Not Documented Strawberries- No reactions were documented. Tetracycline- No reactions were documented., Allergies (2) Active Reaction Strawberries None Documented tetracycline None Documented Current medications: (Selected) Inpatient Medications Ordered Ambien: 5 mg, Oral, At Bedtime, PRN: Sleep Ancef: 2 Gram, 50 mL, 100 mL/Hr, IV Piggyback, PREOP Benadryl: 25 mg, Oral, Q4H, PRN: Itching Colace: 100 mg, Oral, BID Dextrose 50% injection: 12.5 Gram, IV Push, Q15Min, PRN: Other (See Comment) Dextrose 50% injection: 25 Gram, IV Push, Q15Min, PRN: Other (See Comment) Dextrose 50% injection: 25 Gram, IV Push, Q15Min, PRN: Other (See Comment) Dextrose 50% injection: 25 Gram, IV Push, Q15Min, PRN: Other (See Comment) Diovan: 160 mg, Oral, Daily Dulcolax Laxative: 10 mg, Rectal, 1-Time, PRN: Constipation Fioricet: 1 Tab, Oral, Q6H, PRN: Headache Flexeril: 10 mg, Oral, TID, PRN: Spasms Lipitor: 80 mg, Oral, At Bedtime Protonix: 40 mg, Oral, Daily Senokot S: 2 Tab, Oral, At Bedtime Sodium Chloride 0.9% intravenous solution 1,000 mL: 100 mL/Hr, IntraVENous Tylenol: 1,000 mg, Oral, Q6H Zofran: 4 mg, IV Push, Q4H, PRN: Nausea aspirin: 325 mg, Oral, BID bisoprolol: 5 mg, Oral, Daily chlorthalidone: 25 mg, Oral, Daily ferrous gluconate: 324 mg, Oral, Daily gabapentin: 300 mg, Oral, At Bedtime glucagon: 1 mg, IntraMuscular, Q15Min, PRN: Other (See Comment) glucose 4 g oral tablet, chewable: 16 Gram, 4 Tab, Chew, Q15Min, PRN: Other (See Comment) glucose 40% oral gel: 15 Gram, 37.5 mL, Oral, Q15Min, PRN: Other (See Comment) insulin lispro sliding scale: Scale D:, SubCutaneous, AC and at Bedtime levothyroxine: 112 mcg, Oral, Daily levothyroxine: 25 mcg, Oral, Daily morphine: 2 mg, IV Push, Q2H, PRN: Breakthrough Pain multivitamin: 1 Tab, Oral, Daily oxyCODONE: 10 mg, Oral, Q4H, PRN: Pain (Severe 7-10) oxyCODONE: 5 mg, Oral, Q4H, PRN: Pain (Moderate 4-6) Prescriptions Prescribed Colace 100 mg oral capsule: 1 Cap, Oral, BID, PRN: as needed for constipation, 60 Cap, 0 Refill(s) Lyrica 75 mg oral capsule: 1 Cap, Oral, Daily, at bedtime, 30 Cap, 0 Refill(s) Percocet 5/325 oral tablet: 1 Tab, Oral, Q4H, for 7 Day(s), not to exceed 5 tablets/day, PRN: as needed for pain, 42 Tab, 0 Refill(s) Zofran 4 mg oral tablet: 1 Tab, Oral, Q8H, prn n/v, 12 Tab, 0 Refill(s) aspirin 81 mg oral delayed release tablet: 1 Tab, Oral, BID, 60 Tab, 0 Refill(s) cefadroxil 500 mg oral capsule: 1 Cap, Oral, Q12H, for 7 Day(s), 14 Cap, 0 Refill(s) Documented Medications Documented CoQ10: [...] B12: 1,000 mcg, SubLINgual, Daily, 0 Refill(s) biotin 5000 mcg oral [...] tablet: 1 Tab, Oral, BID, Home Medications (19) Active aspirin 81 mg oral delayed release tablet 81 mg = 1 Tab, Oral, BID biotin 5000 mcg oral capsule 1 Tab, Oral, Daily bisoprolol 5 mg, Oral, Daily cefadroxil 500 mg oral capsule [...] mg = 1 Tab, Oral, At Bedtime Lyrica 75 mg oral capsule 75 mg = 1 Cap, Oral, Daily meloxicam 15 mg oral tablet 15 mg = 1 Tab, Oral, Daily metformin 500 mg oral tablet 500 mg = 1 Tab, Oral, BID Percocet 5/325 oral tablet 1 Tab, PRN, Oral, Q4H Probiotic Formula oral capsule 2 Cap, Oral, Daily Vitamin B12 1,000 mcg, SubLINgual, Daily Vitamin B12 1000 mcg oral tablet 1,000 mcg = 1 Tab, Oral, Daily Zofran 4 mg oral tablet 4 mg = 1 Tab, Oral, Q8H , Medications (33) Active Scheduled: (16) acetaminophen 500 mg tab 1,000 mg 2 Tab, Oral, Q6H aspirin EC 325 mg tab 325 mg 1 Tab, Oral, BID atorvastatin 40 mg tab 80 mg 2 Tab, Oral, At Bedtime bisoprolol 5 mg tab 5 mg 1 Tab, Oral, Daily ceFAZolin/D5w 2 Gram 50 mL, IV Piggyback, PREOP chlorthalidone 25 mg tab 25 mg 1 Tab, Oral, Daily docusate sodium 100 mg cap 100 mg 1 Cap, Oral, BID ferrous gluconate 324 mg tab 324 mg 1 Tab, Oral, Daily gabapentin 300 mg cap 300 mg 1 Cap, Oral, At Bedtime insulin lispro 1 unit/0.01 mL inj Scale D:, SubCutaneous, AC and at Bedtime levothyroxine 112 mcg tab 112 mcg 1 Tab, Oral, Daily levothyroxine 25 mcg tab 25 mcg 1 Tab, Oral, Daily multiple vitamin (Thera) tab 1 Tab, Oral, Daily pantoprazole EC 40 mg tab 40 mg 1 Tab, Oral, Daily senna/docusate 8.6/50 mg tab 2 Tab, Oral, At Bedtime valsartan 160 mg tab 160 mg 1 Tab, Oral, Daily Continuous: (1) NaCl 0.9% 1,000 mL 1,000 mL, IntraVENous, 100 mL/Hr PRN: (16) acetamin/butalbital/caffeine tab 1 Tab, Oral, Q6H bisacodyl 10 mg supp 10 mg 1 Supp, Rectal, 1-Time cyclobenzaprine 10 mg tab 10 mg 1 Tab, Oral, TID dextrose 50% 25 g/50 mL inj syr 25 Gram 50 mL, IV Push, Q15Min dextrose 50% 25 g/50 mL inj syr 25 Gram 50 mL, IV Push, Q15Min dextrose 50% 25 g/50 mL inj syr 25 Gram 50 mL, IV Push, Q15Min dextrose 50% 25 g/50 mL inj syr 12.5 Gram 25 mL, IV Push, Q15Min diphenhydrAMINE 25 mg tab 25 mg 1 Tab, Oral, Q4H glucagon 1 mg/1 mL inj 1 mg 1 mL, IntraMuscular, Q15Min glucose 4 g tab 16 Gram 4 Tab, Chew, Q15Min glucose 40% gel 15 g 15 Gram 37.5 mL, Oral, Q15Min morphine 2 mg/1 ml inj 2 mg 1 mL, IV Push, Q2H ondansetron 4 mg/2 mL inj 4 mg 2 mL, IV Push, Q4H oxyCODONE 5 mg tab 5 mg 1 Tab, Oral, Q4H oxyCODONE 5 mg tab 10 mg 2 Tab, Oral, Q4H zolpidem 5 mg tab 5 mg 1 Tab, Oral, At Bedtime Problem list: Medical DM (diabetes mellitus), type 2 / SNOMED CT 941821124 / Confirmed Stomach cancer / SNOMED CT 707381738 / Confirmed IBS (irritable bowel syndrome) / SNOMED CT 82829744 / Confirmed Hypothyroidism / SNOMED CT 53386519 / Confirmed HTN (hypertension) / SNOMED CT 3114471623 / Confirmed GERD (gastroesophageal reflux disease) / SNOMED CT 802456352 / Confirmed Diverticulitis / SNOMED CT 285959309 / Confirmed Back pain / SNOMED CT 436897015 / Confirmed At risk for sleep apnea / IMO 12487571 / Confirmed Arthritis / SNOMED CT 1862401 / Confirmed, Active Problems (10) Arthritis At risk for sleep apnea Back pain Diverticulitis DM (diabetes mellitus), type 2 GERD (gastroesophageal reflux disease) HTN (hypertension) Hypothyroidism IBS (irritable bowel syndrome) Stomach cancer Objective VS/Measurements Vitals Signs (last 24 hrs) Last Charted Minimum Maximum Temp 98.5 (APR 13 14:21) 97.8 (APR 12 17:34) 98 (APR 13 02:56) Mon HR 77 (APR 13 14:21) 70 (APR 13 09:32) 90 (APR 12 17:34) Resp Rate 16 (APR 13:) 16 (APR 12 21:00) 17 (APR 12 17:34) SBP 113 (APR 13 14:) 90 (APR 12 21:00) 125 (APR 13 06:26) DBP L 49 (APR 13:21) L 49 (APR 13 14:21) 67 (APR 13 06:26) MAP 68 (APR 13 14:) 63 (APR 13 02:56) 82 (APR 13 06:26) SpO2 98 (APR 13 14:21) 94 (APR 12 21:00) 98 (APR 12 17:34) General: Alert and oriented, Mild distress. Eye: Pupils are equal, round and reactive to light, Normal conjunctiva. HENT: Normocephalic. Neck: Supple, Non-tender, No jugular venous distention. Respiratory: Respirations are non-labored, Breath sounds are equal, Symmetrical chest wall expansion, No chest wall tenderness. Cardiovascular: Normal rate, No murmur, No gallop. Gastrointestinal: Soft, Non-tender, Normal bowel sounds. Musculoskeletal: No tenderness, s/p left knee surgery. Integumentary: Warm, Intact, No pallor. Neurologic: Alert, Oriented, No focal deficits. Psychiatric: Cooperative, anxiety, Not appropriate mood & affect. Results Review Lab and test: Labs (Last four charted values) WBC H 11.3 (APR 13) 6.9 (MAR 25) HB L 10.8 (APR 13) 12.0 (APR 12) 13.0 (MAR 25) HCT 34.8 (APR 13) 39.4 (MAR 25) Plt 232 (APR 13) 256 (MAR 25) Na 141 (APR 13) 137 (MAR 25) K 3.9 (APR 13) 3.8 (MAR 25) Cl 109 (APR 13) 103 (MAR 25) CO2 23 (APR 13) 29 (MAR 25) BUN H 25 (APR 13) H 24 (MAR 25) Cr 0.90 (APR 13) 0.80 (MAR 25) Glu R H 146 (APR 13) 100 (MAR 25) Ca L 8.3 (APR 13) 9.4 (MAR 25) PT 10.8 (MAR 25) INR 1.0 (MAR 25) PTT 27.6 (MAR 25) No Radiology Results Found Diagnosis / problem Left knee osteoarthritis status post left knee arthroplasty Hypertension Hyperlipidemia Type 2 diabetes Hypothyroidism GERD Plan: ???Pain control and DVT prophylaxis per orthopedic surgery ???Resume home medication. ???on stain ???PT/OT - ok FOR discharge Electronically signed by Ander Mckinney Conversion Day Treatment Clinician/Art Therapist Cerner at 06/03/2022 8:46 AM CDT documented in this encounter Plan of Treatment Not on file documented as of this encounter Visit Diagnoses Not on filedocumented in this encounter
--- OUTSIDE RECORDS SUMMARY | 2024-08-17 08:14 | XMS_ITS | Encounter Summary ---
Author Organization [employer] ([place], [place], [place], [place]) Address [address] [place] [address] Care Team Providers Care Railcar Switchman Name Role Phone Unavailable Primary Care Provider Unavailabl e Encounter Details Date Type Department Care Team (Late st Contact Info) Description 04/12/2021 Transcribed Document [facility] Family Medicine [facility] [place] [address] ProviderJason MD [address] [place] [id number] Social History Tobacco Use Types Packs/Day [...] Conversion Note - Jason ProviderMD - 04/12/2021 3:41 PM RESTAURANT ASSOCIATE Treatment Intervention, PT Entered On: 04/13/2021 12:05 EST Performed On: 04/13/2021 12:01 EST by KISHA RAYGOZA, PARDEEP General Information, PT [...] Treatment Instructions Ordered By: MARLEY CLARK MD-ORJessica 04/12/2021 11:53 PT Treatment Instructions Ordered By: MARLEY CLARK MD-ORT 04/12/2021 15:41 PT Additional Treatment Ordered By: KISHA RAYGOZA, PT Active Diagnoses : No Qualifying Diagnoses Therapy Diagnosis, PT : Aftercare following L TKA Admission Date : 04/12/2021 06:58 Co-treated by, PT : Occupational Therapist Personal Devices : Personal Devices No Devices Recorded Assistive Devices : Assistive Devices No Devices Recorded KISHA RAYGOZA PT - 04/13/2021 12:01 EST General Status Patient Received Status : Up in chair Treatment Start Time : 04/13/2021 10:43 EST Patient Left Status : Up in chair, RN/PCT informed, Family/Visitors at bedside, Communication board completed, All needs met and within reach, Other: SCD's, ICE, Bone foam RN/PCT Informed Comment : Rn inez and pt consent Treatment End Time : 04/13/2021 11:02 EST Treatment Time : 19 Minute(s) KISHA RAYGOZA PT - 04/13/2021 12:01 EST Edu Topics Physical Therapy Education Grid Bed Mobility Training : Returns demonstration Gait Training : Returns demonstration Home Program/Exercises : Verbalizes understanding Role of Physical Therapy : Verbalizes understanding Safety : Verbalizes understanding Stair Training : Returns demonstration Therapeutic Exercises : Returns demonstration Transfer Training : Returns demonstration Use of Assistive Device : Returns demonstration KISHA RAYGOZA, PT - 04/13/2021 12:01 EST Indication Assesessment, PT Physical Therapy Indicated : KISHA Sutton PT - 04/13/2021 12:01 EST Plan of Care, PT PT Tx Plan/Goals Established w Patient : No KISHA RAYGOZA PT - 04/13/2021 12:01 EST Electroplater Helper Goals Mobility/Bed Mobility LTG PT Grid Goal #1 Activity : Sit to stand Assist : Supervision or set-up Equipment : Walker, front wheel Date to Meet : 04/26/2021 EDT Goal Status : Goal met Date Met : 04/13/2021 EST KISHA RAYGOZA PT - 04/13/2021 12:01 EST Ambulation LTG Grid Goal #1 Device : Walker, front wheel Distance : 100ft Assist : Supervision or set-up Date to Meet : 04/26/2021 EDT Goal Status : Goal met Date Met : 04/13/2021 EST KISHA RAYGOZA, PT - 04/13/2021 12:01 EST Stairs LTG Grid Goal #1 Device : None Number of Steps : 5 Handrail(s) : One handrail Assist : Assist, minimal Date to Meet : 04/26/2021 EDT Goal Status : Goal met Date Met : 04/13/2021 EST KISHA RAYGOZA, PT - 04/13/2021 12:01 EST Treatment Note Subjective Comment : Pt agreeable to PT treatment, denies pain at rest. Patient's Response to Treatment : Pt tolerates all therex and mobility tasks well with no acute complaints. Reinforced progressive use of bone foam for improved extension ROM. Additional Objective Information : L knee ROM 0-100 degrees SBA sup-sit SBA sit-stand with RWx SBA gait x 100ft with RWx CGA ascended/descended 5 stairs with single rail and CGA, requiring min verbal cues to promote proper sequencing, 'up with the good, down with the bad.' Pt participated in 10 repetitions of seated LAQ, marching in place, and heel slides; supine ankle pumps, quad sets glut sets, SAQ, SLR, heel slides, and hip abduction Assessment : Pt has currently met 3/3 [...] Foam during acute phase of TKA rehab. Plan for Treatment : discontinue KISHA RAYGOZA, PT - 04/13/2021 12:01 EST Pain Assessment Pain Scaled Used : 0-10 Pain scale Pain Score Pre-Intervention : 0 Pain Score Post-Intervention. : 0 KISHA RAYGOZA, PT - 04/13/2021 12:01 EST Image 1 - Images currently included in the form version of this document have not been included in the text rendition version of the form. [facility] PT Charges Gait Training Each 15 Min : 1 KISHA RAYGOZA, PT - 04/13/2021 12:01 EST documented in this encounter Plan of Treatment Not on file documented as of this encounter Visit Diagnoses Not on filedocumented in this encounter
--- OUTSIDE RECORDS SUMMARY | 2024-08-17 08:14 | XMS_ITS | Encounter Summary ---
Author Organization [employer] ([place], [place], [place], [place]) Address [address] [place] [address] Care Team Providers Care Entrance Guard Name Role Phone Unavailable Primary Care Provider Unavailabl e Encounter Details Date Type Department Care Team (Late st Contact Info) Description 04/13/[address] [facility] Family Medicine [facility] [place] [address] ProviderJason MD [facility] [place] [id number] Social History Tobacco Use Types Packs/Day Years [...] Conversion Note - Historical ProviderMD - 04/13/2021 1:42 PM EAR SPECIALIST Nursing Discharge Summary Entered On: 04/13/2021 13:45 EST Performed On: 04/13/2021 13:42 EST by Comfrot Reinoso RN-[facility] Discharge Documentation Patient Disposition, General : Discharge Discharge Instructions Reviewed With, Opportunity For Questions Given : Patient, Spouse Patient Education Completed : Yes Teaching Method : Explanation, Printed materials Teaching Evaluation : Verbalizes understanding Education Comment : room secured for teaching, spouse present, consented to teach. instructed on procedure, medication, follow up appointment Comfort Reinoso RN-[facility] - 04/13/2021 13:42 EST Electronically signed by Faye [facility] Conversion Double Bottom Driver Cerner at 06/03/2022 8:46 AM CDT documented in this encounter Plan of Treatment Not on file documented as of this encounter Visit Diagnoses Not on filedocumented in this encounter
--- OUTSIDE RECORDS SUMMARY | 2024-08-17 08:14 | XMS_ITS | Encounter Summary ---
Author Organization [employer] ([place], [place], [place], [place]) Address [address] [place] [address] Care Team Providers Care Airplane Fueler Name Role Phone Unavailable Primary Care Provider Unavailabl e Encounter Details Date Type Department Care Team (Late st Contact Info) Description 04/12/2021 Transcribed Document [facility] [facility] [place] [address] ProviderJason MD [address] [place] [id number] Social History Tobacco Use Types Packs/Day [...] Conversion Note - Historical ProviderMD - 04/12/2021 11:53 AM INSIDE FINISHER Evaluation, Occupational Therapy Entered On: 04/12/2021 15:00 EST Performed On: 04/12/2021 13:52 EST by ENRIQUE NAQVI, OTR/L General Information, OT Visit Type, OT : Initial evaluation Patient Orders : Order Date Order Ordering 04/12/2021 11:53 OT Evaluation and Treatment Ordered By: MARLEY CLARK MD-ORJessica 04/12/2021 11:53 OT Treatment Instructions Ordered By: MARLEY CLARK MD-ORT Active Diagnoses : No Qualifying Diagnoses Therapy Diagnosis, OT : Decreased independence in ADLs and functional mobility Onset of Problem, OT : 04/12/2021 EST Admission Date : 04/12/2021 06:58 Co-treated by, OT : Physical Therapist Personal Devices : Personal Devices No Devices Recorded Assistive Devices : Assistive Devices No Devices Recorded General Information Comment, OT : Dx: LTKA- WBAT PMH: RTKA 12/07/20 ENRIQUE NAQVI OTR/L - 04/12/2021 14:56 EST General Status Patient Received Status : Supine in bed Treatment Start Time : 04/12/2021 13:40 EST Patient Left Status : Up in chair, RN/PCT informed, All needs met and within reach RN/PCT Informed Comment : CHIP bland'ed evaluation. Treatment End Time : 04/12/2021 13:52 EST Treatment Time : 12 Minute(s) ENRIQUE NAQVI OTR/L - 04/12/2021 14:56 EST History and Environment, OT Living Situation, Therapy : Home Patient Lives With : Spouse Persons Providing Information : Patient Home Equipment, Therapy : ADL Equipment, Walker ADL Equipment : Aid, sock, Media Account Executive, leg, Quality Improvement Analyst, Shoehorn, long handled, Sponge, long handled Walker : Walker, front wheel Home Setup : One story Bedroom Location : Main level Bathroom #1 Location : Main level Stairs : Yes Stair Location(s) : Outside Outside Stairs, Number of Steps : 5 Railing Outside : Yes Outside Railing Position : Bilateral ENRIQUE NAQVI OTR/Alejandro - 04/12/2021 14:56 EST Prior LOF Bathing, OT : Independent Prior LOF Bed Mobility : Independent Prior LOF Upper Body Dressing, OT : Independent Prior LOF Lower Body Dressing, OT : Independent Prior LOF Toileting : Independent Prior LOF Transfer : Independent Prior LOF Grooming, OT : Independent Prior LOF for IADLs, OT : Independent ENRIQUE NAQVI OTR/Alejandro - 04/12/2021 14:56 EST Upper Extremity Upper Extremity Dominance : Right Right UE Active ROM : WFL Right UE Strength : WFL Left UE Active ROM : WFL Left UE Strength : WFL Upper Extremity Strength Impaired : No ENRIQUE NAQVI OTR/Alejandro - 04/12/2021 14:56 EST Self Care/Home Management, OT Self Feeding Assist Level, OT : Independent, complete Grooming Assist Level, OT : Supervision or set-up Bathing Assist Level, OT : Supervision or set-up Upper Body Dressing Assist Level, OT : Supervision or set-up Lower Body Dressing Assist Level, OT : Supervision or set-up Toileting Assist Level : Supervision or set-up Toilet Transfer Assist Level : Supervision or set-up ENRIQUE NAQVI OTR/Alejandro Pratt 04/12/2021 14:56 EST Functional Mobility Mobility Grid Supine to Sit : Rehab Complete independence Sit to Stand : Supervision/set-up Bed to Chair : Rehab Minimal assistance Stand to Sit : Supervision/set-up ENRIQUE NAQVI OTR/Alejandro - 04/12/2021 14:56 EST Cognition Assessment, OT Orientation : Oriented x 4 ENRIQUE NAQVI OTR/Alejandro Pratt 04/12/2021 14:56 EST Indication Assessment, OT Occupational Therapy Indicated : Yes Problem List, OT : Impaired, bed mobility, Impaired, activities daily living, Impaired, endurance tolerance, Impaired functional mobility, Impaired, standing balance, Impaired, strength, Impaired, transfers, Pain limiting function Potential Barriers, OT : Acuity of illness Rehabilitation Potential, OT : Good ENRIQUE NAQVI OTR/Alejandro Pratt 04/12/2021 14:56 EST Plan of Care, OT OT Tx Plan/Goals Established w Patient : Yes OT Frequency Rehab : Six days per week OT Duration Rehab : Fourteen days OT Treatments Planned : Activities of daily living, Balance training, Functional mobility training, Pain management, Safety education, Therapeutic activities ENRIQUE NAQVI OTR/Alejandro Pratt 04/12/2021 14:56 EST Fpc Goals, OT Dressing, Lower Body LTG Grid Goal #1 Activity : Dressing, Lower Body Assist : Independent, modified Equipment : Other: AE PRN Date to Meet : 04/26/2021 EDT Goal Status : Initial goal ENRIQUE NAQVI OTR/Alejandro Pratt 04/12/2021 14:56 EST Toileting LTG Grid Goal #1 Activity : Toileting Assist : Independent, modified Date to Meet : 04/26/2021 EDT Goal Status : Initial goal ENRIQUE NAQVI OTR/Alejandro Pratt 04/12/2021 14:56 EST Toilet Transfer LTG Grid Goal #1 Activity : Toilet Transfer, Ambulatory Assist : Independent, modified Date to Meet : 04/26/2021 EDT Goal Status : Initial goal ENRIQUE NAQVI OTR/Alejandro Pratt 04/12/2021 14:56 EST Treatment Note Subjective Comment : Pt was agreeable. Patient's Response to Treatment : Pt tolerated evaluation well. Additional Objective Information : Pt was found supine upon arrival. Pt participated in evaluation questioning. Pt to the EOB independenlty with the HOB slightly elevated. Pt ambulated to the bathroom using a RWx with Alexis for safety, completing toileting ADL with set up. Pt returned to the room, was left up in a chair with all needs met and CL in reach. Assessment : Pt will benefit from skilled OT services during admission to increase independence in ADLs and functional mobility s/p LTKA. Plan for Treatment : See OT goals. ENRIQUE NAQVI OTR/L - 04/12/2021 14:56 EST Pain Assessment Pain Scaled Used : 0-10 Pain scale Pain Score Pre-Intervention : 0 ENRIQUE NAQVI OTR/L - 04/12/2021 14:56 EST Image 1 - Images currently included in the form version of this document have not been included in the text rendition version of the form. Anticipated Discharge Needs, OT/PT Anticipated Discharge to : Home, with home health, Outpatient rehabilitation ENRIQUE NAQVI OTR/L - 04/12/2021 14:[address] [facility] OT Charges OT Eval Low Complexity : 1 ENRIQUE NAQVI OTR/L - 04/12/2021 14:56 EST Electronically signed by Ander Mckinney Conversion Cat Dog Or Other Pet Groomer Cerner at 06/03/2022 8:53 AM CDT documented in this encounter Plan of Treatment Not on file documented as of this encounter Visit Diagnoses Not on filedocumented in this encounter
--- OUTSIDE RECORDS SUMMARY | 2024-08-17 08:14 | XMS_ITS | Encounter Summary ---
Author Organization [employer] ([place], [place], [place], [place]) Address [address] [place] [address] Care Team Providers Care Machine Pan Greaser Name Role Phone Unavailable Primary Care Provider Unavailabl e Encounter Details Date Type Department Care Team (Late st Contact Info) Description 04/13/2021 Transcribed Document [facility] [place] [address] ProviderJason MD [address], [place] [id number] Social History Tobacco Use Types Packs/Day Years [...] Conversion Note - Historical ProviderMD - 04/13/2021 11:29 AM ANESTHESIA ASSISTANT UM Authorization Entered On: 04/13/2021 11:29 EST Performed On: 04/13/2021 11:29 EST by Damaris Morse Rn-Utilization Review Primary Insurance Authorization Authorization and Policy Numbers : Insurance 1 Health Plan: [employer] Policy Number: [id number] Authorization Number: NPR Insurance 2 Health Plan: MEDICARE Policy Number: [id number] Authorization Number: Insurance Primary Name : Lux [id number] Authorization Status-Primary : No precert required Authorized Service Begin Date-Primary : 04/12/2021 EST Observation Authorization Nbr-Primary : per [facility] [employer] Historical Authorization Comments-Primary : Comment 1: pt iliana for OP total knee replacement on 04/12/21: per [facility] [employer] for [place] (ROSSY ALEX, Military Personnel Specialist 04/09/2021 14:17) Damaris Morse Rn-Utilization Review - 04/13/2021 11:29 EST Electronically signed by [facility] Conversion Real Estate Professor Cerner at 06/03/2022 8:42 AM CDT documented in this encounter Plan of Treatment Not on file documented as of this encounter Visit Diagnoses Not on filedocumented in this encounter
--- OUTSIDE RECORDS SUMMARY | 2024-08-17 08:14 | XMS_ITS | Encounter Summary ---
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 [address] LESLIE MARTÍNEZ :1955 Visit Time:04/12/2021 Your Visit Summary Your Care Team Admitting Physician - MARLEY QUINTEROS MD-ORT Attending Physician - MARLEY QUINTEROS MD-ORT Primary Care Physician - RAYMUNDO SNYDER (REF)NINA Referring Physician - GAVINO, NOT LISTED Your Diagnosis Unilateral primary osteoarthritis, left knee, Unilateral primary osteoarthritis, left knee These Are Your Goals No qualifying data available. Discharge Vitals Temperature 37.1 ??C Heart Rate (Monitored) 70 Respiratory Rate 17 Blood Pressure 98/51 What to do next Instructions From Your Care Team New Medications: aspirin (aspirin 81 mg oral delayed release tablet) 1 Tablet(s) Oral Two Times A Day. cefadroxil (cefadroxil 500 mg oral capsule) 1 Capsule(s) Oral every 12 hours for 7 Day(s). docusate (Colace 100 mg oral capsule) 1 Capsule(s) Oral Two Times A Day as needed as needed for constipation. ONdansteron 4mg tablet 1 tab every 8 hrs as needed for Nausea/Vomiting Percocet 5-325mg tablet 1 tablet by mouth every four hours as needed x 7 days (Not to exceed 5 doses per 24 hours) Lyrica 75mg capsule 1 cap by mouth at bedtime Follow-up w/ Ulisses Almendarez PA-C in 3 wks ([phone]) Follow Up Instructions: Continue CICI hose for 3 wks if tolerated. Follow Up Instructions: Leave Aquacel dressing in place x 7d, then leave open to air. Follow-Up Appointments Follow Up with AZALIA FARRIS PA When 04/30/2021 12:30 PM EDT Where: [address] [place], [place] [address] [address]- Follow Up with [facility] When 04/14/2021 11:00 AM EST Where: Medications What How Much When Instructions Next Dose acetaminophen-oxyCODONE (Percocet 5/ 325 oral tablet) 1 Tablet(s) Oral Every 4 Hours as needed for as needed for pain Duration: 7 Day(s) not to exceed 5 tablets/ day Pickup at [facility][1] as needed cefadroxil (cefadroxil 500 mg oral capsule) 1 Capsule(s) Oral Every 12 hours Duration: 7 Day(s) Pickup at [facility] ondansetron (Zofran 4 mg oral tablet) 1 Tablet(s) Oral Every 8 Hours prn n/ v Pickup at [facility][1] as needed pregabalin (Lyrica 75 mg oral capsule) 1 Capsule(s) Oral Every Day at bedtime Pickup at [facility][1] bedtime aspirin (aspirin 81 mg oral delayed release tablet) 1 Tablet(s) Oral Two Times A Day Pickup at [facility] bisoprolol 5 Milligram(s) Oral Every Day tomorrow atorvastatin (Lipitor 80 mg oral tablet) 1 Tablet(s) Oral At Bedtime bedtime azilsartan-chlorthalidone (Edarbyclor 40 mg-25 mg oral tablet) 1 Tablet(s) Oral Every Day tomorrow bifidobacterium-lactobacillus (Probiotic Formula oral capsule) 2 Capsule(s) Oral Every Day tomorrow biotin (biotin 5000 mcg oral capsule) 1 Tablet(s) Oral Every Day tomorrow cyanocobalamin (Vitamin B12 1000 mcg oral tablet) 1 Tablet(s) Oral Every Day tomorrow cyanocobalamin (Vitamin B12) 1,000 Microgram(s) SubLINgual Every Day tomorrow docusate (Colace 100 mg oral capsule) 1 Capsule(s) Oral Two Times A Day as needed for as needed for constipation Pickup at [facility] famotidine (famotidine 20 mg oral tablet) 1 Tablet(s) Oral Two Times A Day tonight fexofenadine (fexofenadine 180 mg oral tablet) 1 Tablet(s) Oral Every Day tomorrow levothyroxine (levothyroxine 137 mcg (0.137 mg) oral tablet) 1 Tablet(s) Oral Every Day tomorrow meloxicam (meloxicam 15 mg oral tablet) 1 Tablet(s) Oral Every Day tomorrow metformin (metformin 500 mg oral tablet) 1 Tablet(s) Oral Two Times A Day this evening ubiquinone (CoQ10) 1 Tablet(s) Oral Every Day tomorrow Pharmacy Information [facility]: [address] [place] [address] [address] [place], [place] [id number] [phone] Take your medications faithfully. Do NOT skip [...] guidance. Allergies Strawberries tetracycline Immunizations This Visit No Immunizations Found Education Materials Discharge Instructions for Total Knee [...] You fall and cannot get up Aspirin ??? What is this medication used for? Mild antiplatelet agent, used to treat mild to moderate pain, used for heart health and stroke prevention. ??? DO NOT crush or chew enteric coated pills. ??? Notify MD before having or when planning surgery, aspirin may need to be held. ??? If you take aspirin regularly to prevent a heart attack or stroke, you should not take ibuprofen (Advil, Motrin) or other non-steroidal anti-inflammatory drugs, such as naproxen or diclofenac, to treat pain without first talking to your doctor. ??? Alcohol and tobacco products can increase your risk of stomach bleeding while taking aspirin. Recommend avoiding these agents during therapy. ??? Always take with a full glass of [...] of Dr. Quinteros or Dr. Juarez, call [phone] If you are a patient of Dr. Hernandez, call [phone] Nurse Navigator: Jesenia Burroughs Office: [phone]; ; available during regular business hours ondansetron (oral) (on PURVI se cong) Missy Louis Zuplenz What is the most important information I should know about ondansetron? You should not use ondansetron if you are also using apomorphine (Apokyn). What is ondansetron? Ondansetron blocks the actions of chemicals in the body that can trigger nausea and vomiting. Ondansetron is used to prevent nausea and vomiting that may be caused by surgery, cancer chemotherapy, or radiation treatment. Ondansetron may be used for purposes not listed in this medication guide. What should I discuss with my health care provider before taking ondansetron? You should not use ondansetron if: ?? you are also using apomorphine (Apokyn); or ?? you are allergic to ondansetron or similar medicines (dolasetron, granisetron, palonosetron). To make sure ondansetron is safe for you, tell your doctor if you have: ?? liver disease; ?? an electrolyte imbalance (such as low levels of potassium or magnesium in your blood); ?? congestive heart failure, slow heartbeats; ?? a personal or family history of long QT syndrome; or ?? a blockage in your digestive tract (stomach or intestines). Ondansetron is not expected to harm an unborn baby. Tell your doctor if you are . It is not known whether ondansetron passes into breast milk or if it could harm a nursing baby. Tell your doctor if you are breast-feeding a baby. Ondansetron is not approved for use by anyone younger than 4 years old. Ondansetron orally disintegrating tablets may contain phenylalanine. Tell your doctor if you have phenylketonuria (PKU). How should I take ondansetron? Follow all directions on your prescription label. Do not take this medicine in larger or smaller amounts or for longer than recommended. Ondansetron can be taken with or without food. The first dose of ondansetron is usually taken before the start of your surgery, chemotherapy, or radiation treatment. Follow your doctor's dosing instructions very carefully. Take the ondansetron regular tablet with a full glass of water. To take the orally disintegrating tablet (Zofran ODT): ?? Keep the tablet in its blister pack until you are ready to take it. Open the package and peel back the foil. Do not push a tablet through the foil or you may damage the tablet. ?? Use dry hands to remove the tablet and place it in your mouth. ?? Do not swallow the tablet whole. Allow it to dissolve in your mouth without chewing. ?? Swallow several times as the tablet dissolves. To use ondansetron oral soluble film (strip) (Zuplenz): ?? Keep the strip in the foil pouch until you are ready to use the medicine. ?? Using dry hands, remove the strip and place it on your tongue. It will begin to dissolve right away. ?? Do not swallow the strip whole. Allow it to dissolve in your mouth without chewing. ?? Swallow several times after the strip dissolves. If desired, you may drink liquid to help swallow the dissolved strip. ?? Wash your hands after using Zuplenz. Measure liquid medicine with the dosing syringe provided, or with a special dose-measuring spoon or medicine cup. If you do not have a dose-measuring device, ask your pharmacist for one. Store at room temperature away from moisture, heat, and light. Store liquid medicine in an upright position. What happens if I miss a dose? Take the missed dose as soon as you remember. Skip the missed dose if it is almost time for your next scheduled dose. Do not take extra medicine to make up the missed dose. What happens if I overdose? Seek emergency medical attention or call the Poison Help line at . Overdose symptoms may include sudden loss of vision, severe constipation, feeling light-headed, or fainting. What should I avoid while taking ondansetron? Ondansetron may impair your thinking or reactions. Be careful if you drive or do anything that requires you to be alert. What are the possible side effects of ondansetron? Get emergency medical help if you have signs of an allergic reaction: rash, hives; fever, chills, difficult breathing; swelling of your face, lips, tongue, or throat. Call your doctor at once if you have: ?? severe constipation, stomach pain, or bloating; ?? headache with chest pain and severe dizziness, fainting, fast or pounding heartbeats; ?? fast or pounding heartbeats; ?? jaundice (yellowing of the skin or eyes); ?? blurred vision or temporary vision loss (lasting from only a few minutes to several hours); ?? high levels of serotonin in the body--agitation, hallucinations, fever, fast heart rate, overactive reflexes, nausea, vomiting, diarrhea, loss of coordination, fainting. Common side effects may include: ?? diarrhea or constipation; ?? headache; ?? drowsiness; or ?? tired feeling. This is not a complete list of side effects and others may occur. Call your doctor for medical advice about side effects. You may report side effects to FDA at 6-730-WOF-0450. What other drugs will affect ondansetron? Ondansetron can cause a serious heart problem, especially if you use certain medicines at the same time, including antibiotics, antidepressants, heart rhythm medicine, antipsychotic medicines, and medicines to treat cancer, malaria, HIV or AIDS. Tell your doctor about all medicines you use, and those you start or stop using during your treatment with ondansetron. Taking ondansetron while you are using certain other medicines can cause high levels of serotonin to build up in your body, a condition called 'serotonin syndrome,' which can be fatal. Tell your doctor if you also use: ?? medicine to treat depression; ?? medicine to treat a psychiatric disorder; ?? a narcotic (opioid) medication; or ?? medicine to prevent nausea and vomiting. This list is not complete and many other drugs can interact with ondansetron. This includes prescription and mbov-gss-stndgtk medicines, vitamins, and herbal products. Give a list of all your medicines to any healthcare provider who treats you. Where can I get more information? Your pharmacist can provide more information about ondansetron. Remember, keep this and all other medicines out of the reach of children, never share your medicines with others, and use this medication only for the indication prescribed. Every effort has been made to ensure that the information provided by [employer]. [employer]') is accurate, up-to-date, and complete, but no guarantee is made to that effect. Drug information contained herein may be time sensitive. [employer] information has been compiled for use by healthcare practitioners and consumers in the [place] and therefore [employer] does not warrant that uses outside of the [place] are appropriate, unless specifically indicated otherwise. [employer] drug information does not endorse drugs, diagnose patients or recommend therapy. [employer] drug information is an informational resource designed to assist licensed healthcare practitioners in caring for their patients and/or to serve consumers viewing this service as a supplement to, and not a substitute for, the expertise, skill, knowledge and judgment of healthcare practitioners. The absence of a warning for a given drug or drug combination in no way should be construed to indicate that the drug or drug combination is safe, effective or appropriate for any given patient. [facility] does not assume any responsibility for any aspect of healthcare administered with the aid of information [facility] provides. The information contained herein is not intended to cover all possible uses, directions, precautions, warnings, drug interactions, allergic reactions, or adverse effects. If you have questions about the drugs you are taking, check with your doctor, nurse or pharmacist. Copyright 3422-2707 [employer] [employer]. Version: 13.01. Revision Date: 12/04/2015. cefadroxil (SEF a DROX il) What is the most important information I should know about cefadroxil? Follow all directions on your medicine label and package. Tell each of your healthcare providers about all your medical conditions, allergies, and all medicines you use. What is cefadroxil? Cefadroxil is a cephalosporin (SEF a low spor in) antibiotic that is used to treat many different types of infections caused by bacteria. Cefadroxil may also be used for purposes not listed in this medication guide. What should I discuss with my healthcare provider before taking cefadroxil? You should not take this medicine if you are allergic to cefadroxil or other cephalosporin antibiotic (cefdinir, cefalexin, Keflex, Omnicef, and others). Tell your doctor if you have ever had: ?? an allergy to any drug (especially penicillin); ?? intestinal problems, such as colitis; or ?? kidney disease. Cefadroxil liquid contains sucrose. Talk to your doctor before using this form of cefadroxil if you have diabetes. Tell your doctor if you are or . How should I take cefadroxil? Follow all directions on your prescription label and read all medicine guides or instruction sheets. Use the medicine exactly as directed. You may take cefadroxil with or without food. Take with food if cefadroxil upsets your stomach. Shake the oral suspension (liquid) before you measure a dose. Use the dosing syringe provided, or use a medicine dose-measuring device (not a kitchen spoon). Cefadroxil doses are based on weight in children. Follow all dosing instructions carefully when giving this medicine to a child. Use this medicine for the full prescribed length of time, even if your symptoms quickly improve. Skipping doses can increase your risk of infection that is resistant to medication. Cefadroxil will not treat a viral infection such as the flu or a common cold. Cefadroxil can affect the results of certain medical tests. Tell any doctor who treats you that you are using cefadroxil. Store the tablets or capsules at room temperature, away from moisture and heat. Store cefadroxil liquid in the refrigerator. Do not freeze. Throw away any unused cefadroxil liquid that is older than 14 days. What happens if I miss a dose? Take the medicine as soon as you can, but skip the missed dose if it is almost time for your next dose. Do not take two doses at one time. What happens if I overdose? Seek emergency medical attention or call the Poison Help line at . What should I avoid while taking cefadroxil? Antibiotic medicines can cause diarrhea, which may be a sign of a new infection. If you have diarrhea that is watery or bloody, call your doctor before using anti-diarrhea medicine. What are the possible side effects of cefadroxil? Get emergency medical help if you have signs of an allergic reaction: hives; difficult breathing; swelling of your face, lips, tongue, or throat. Call your doctor at once if you have: ?? severe stomach pain, diarrhea that is watery or bloody (even if it occurs months after your last dose); ?? fever, chills, body aches, flu symptoms; ?? pale skin, easy bruising, unusual bleeding; ?? a seizure; ?? fever, weakness, confusion; ?? dark colored urine, jaundice (yellowing of the skin or eyes); or ?? kidney problems--little or no urination, swelling in your feet or ankles, feeling tired or short of breath. Common side effects may include: ?? diarrhea; ?? stomach pain; or ?? vaginal itching or discharge. This is not a complete list of side effects and others may occur. Call your doctor for medical advice about side effects. You may report side effects to FDA at 5-556-JFJ-3931. What other drugs will affect cefadroxil? Other drugs may affect cefadroxil, including prescription and uajn-ssh-pscqufm medicines, vitamins, and herbal products. Tell your doctor about all your current medicines and any medicine you start or stop using. Where can I get more information? Your pharmacist can provide more information about cefadroxil. Remember, keep this and all other medicines out of the reach of children, never share your medicines with others, and use this medication only for the indication prescribed. Every effort has been made to ensure that the information provided by [employer]') is accurate, up-to-date, and complete, but no guarantee is made to that effect. Drug information contained herein may be time sensitive. [employer] information has been compiled for use by healthcare practitioners and consumers in the [place] and therefore [employer] does not warrant that uses outside of the [place] are appropriate, unless specifically indicated otherwise. [employer] drug information does not endorse drugs, diagnose patients or recommend therapy. [employer] drug information is an informational resource designed to assist licensed healthcare practitioners in caring for their patients and/or to serve consumers viewing this service as a supplement to, and not a substitute for, the expertise, skill, knowledge and judgment of healthcare practitioners. The absence of a warning for a given drug or drug combination in no way should be construed to indicate that the drug or drug combination is safe, effective or appropriate for any given patient. [employer] does not assume any responsibility for any aspect of healthcare administered with the aid of information [employer] provides. The information contained herein is not intended to cover all possible uses, directions, precautions, warnings, drug interactions, allergic reactions, or adverse effects. If you have questions about the drugs you are taking, check with your doctor, nurse or pharmacist. Copyright 5884-6667 [employer]. Version: 6.03. Revision Date: 02/17/2020. aspirin (oral) ( pir in) Arthritis Pain, Aspi-Cor, Aspir-Low, Verónica Plus, Durlaza, Ecotrin, Miniprin, Vazalore What is the most important information I should know about aspirin? Aspirin can cause Judie's syndrome, a serious and sometimes fatal condition in children. What is aspirin? Aspirin is a salicylate (qo-ZQV-cm-ate) that is used to treat pain, and reduce fever or inflammation. Aspirin is sometimes used to treat or prevent heart attacks, strokes, and chest pain (angina). Aspirin should be used for these conditions only under the supervision of a doctor. Aspirin may also be used for purposes not listed in this medication guide. What should I discuss with my healthcare provider before taking aspirin? Using aspirin in a child or teenager with flu symptoms or chickenpox can cause a serious or fatal condition called Judie's syndrome. You should not use aspirin if you are allergic to it, or if you have: ?? a recent history of stomach or intestinal bleeding; ?? a bleeding disorder such as hemophilia; or ?? if you have ever had an asthma attack or severe allergic reaction after taking aspirin or an NSAID (non-steroidal anti-inflammatory drug). Tell your doctor if you have ever had: ?? asthma or seasonal allergies; ?? stomach ulcers; ?? liver disease; ?? kidney disease; ?? a bleeding or blood clotting disorder; ?? gout; or ?? heart disease, high blood pressure, or congestive heart failure. Taking aspirin during late may cause bleeding in the mother or the baby during delivery. Tell your doctor if you are or plan to become . You should not breastfeed while using this medicine. How should I take aspirin? Use exactly as directed on the label, or as prescribed by your doctor. Always follow directions on the medicine label about giving aspirin to a child. Take with food if aspirin upsets your stomach. You must chew the chewable tablet before you swallow it. Do not crush, chew, break, or open an enteric-coated or delayed/extended-release pill. Swallow it whole. Tell your doctor if you have a planned surgery. Store at room temperature away from moisture and heat. Do not use aspirin if you smell a strong vinegar odor in the aspirin bottle. The medicine may no longer be effective. What happens if I miss a dose? Aspirin is used when needed. If you are on a dosing schedule, skip any missed dose. Do not use two doses at one time. What happens if I overdose? Seek emergency medical attention or call the Poison Help line at . Overdose may cause stomach pain, vomiting, diarrhea, vision or hearing problems, fast or slow breathing, or confusion. What should I avoid while taking aspirin? Avoid alcohol. Heavy drinking can increase your risk of stomach bleeding. Avoid taking ibuprofen if you take aspirin to prevent stroke or heart attack. Ibuprofen can make aspirin less effective in protecting your heart and blood vessels. Ask your doctor how far apart your doses should be. Ask a doctor or pharmacist before using other medicines for pain, fever, swelling, or cold/flu symptoms. They may contain ingredients similar to aspirin (such as magnesium salicylate, ibuprofen, ketoprofen, or naproxen). What are the possible side effects of aspirin? Get emergency medical help if you have signs of an allergic reaction: hives; difficult breathing; swelling of your face, lips, tongue, or throat. Stop using aspirin and call your doctor at once if you have: ?? ringing in your ears, confusion, hallucinations, rapid breathing, seizure (convulsions); ?? severe nausea, vomiting, or stomach pain; ?? bloody or tarry stools, coughing up blood or vomit that looks like coffee grounds; ?? fever lasting longer than 3 days; or ?? swelling, or pain lasting longer than 10 days. Common side effects may include: ?? upset stomach, heartburn; ?? drowsiness; or ?? mild headache. This is not a complete list of side effects and others may occur. Call your doctor for medical advice about side effects. You may report side effects to FDA at 4-725-AWD-1166. What other drugs will affect aspirin? Ask your doctor before using aspirin if you take an antidepressant. Taking certain antidepressants with aspirin may cause you to bruise or bleed easily. Ask a doctor or pharmacist before using aspirin with any other medications, especially: ?? a blood thinner (warfarin, Coumadin, Jantoven), or other medication used to prevent blood clots; or ?? other salicylates such as Nuprin Backache Caplet, Kaopectate, KneeRelief, Pamprin Cramp Formula, Pepto-Bismol, Tricosal, Trilisate, and others. This list is not complete. Other drugs may affect aspirin, including prescription and fyzs-ddy-qkdfoay medicines, vitamins, and herbal products. Not all possible drug interactions are listed here. Where can I get more information? Your pharmacist can provide more information about aspirin. Remember, keep this and all other medicines out of the reach of children, never share your medicines with others, and use this medication only for the indication prescribed. Every effort has been made to ensure that the information provided by [employer]. ('[employer]') is accurate, up-to-date, and complete, but no guarantee is made to that effect. Drug information contained herein may be time sensitive. [employer] information has been compiled for use by healthcare practitioners and consumers in the [place] and therefore [employer] does not warrant that uses outside of the [place] are appropriate, unless specifically indicated otherwise. [employer] drug information does not endorse drugs, diagnose patients or recommend therapy. [employer] drug information is an informational resource designed to assist licensed healthcare practitioners in caring for their patients and/or to serve consumers viewing this service as a supplement to, and not a substitute for, the expertise, skill, knowledge and judgment of healthcare practitioners. The absence of a warning for a given drug or drug combination in no way should be construed to indicate that the drug or drug combination is safe, effective or appropriate for any given patient. [employer] does not assume any responsibility for any aspect of healthcare administered with the aid of information [employer] provides. The information contained herein is not intended to cover all possible uses, directions, precautions, warnings, drug interactions, allergic reactions, or adverse effects. If you have questions about the drugs you are taking, check with your doctor, nurse or pharmacist. Copyright 0345-3659 [employer]. Version: 16.03. Revision Date: 08/10/2020. docusate (oral/rectal) (DOK ue sate) Colace, Diocto, Doc-Q-Lace, Docu, Doculase, Docusil, Docusoft S, DocuSol, Dulcolax Stool Softener, Enemeez Mini, Aiden-Tin, Pedia-Lax Stool Softener, Kowalski Stool Softener, Promolaxin, Silace, Surfak Stool Softener, Nate-Q-Lax What is the most important information I should know about docusate? You should not use docusate if you also use mineral oil, unless your doctor tells you to. What is docusate? Docusate is a stool softener that makes bowel movements softer and easier to pass. Docusate is used to relieve occasional constipation (irregularity). There are many brands and forms of docusate available. Not all brands are listed on this leaflet. Docusate may also be used for purposes not listed in this medication guide. What should I discuss with my healthcare provider before using docusate? You should not use docusate if you are allergic to it. Ask a doctor or pharmacist if this medicine is safe to use if you have: ?? stomach pain; ?? nausea; ?? vomiting; or ?? a sudden change in bowel habits that lasts over 2 weeks. Ask a doctor before using this medicine if you are or . Do not give this medicine to a child without medical advice. How should I use docusate? Use exactly as directed on the label, or as prescribed by your doctor. Drink plenty of liquids while you are using docusate. Measure liquid medicine carefully. Use the dosing syringe provided, or use a medicine dose-measuring device (not a kitchen spoon). Do not take the rectal enema by mouth. Rectal medicine is for use only in the rectum. Wash your hands before and after using the enema. To use the enema, lie on your left side with your left leg extended and your right leg slightly bent. Remove the cap from the applicator tip and gently insert the tip into your rectum. Slowly squeeze the bottle to empty the contents into the rectum. After using the enema, lie down on your left side for at least 30 minutes to allow the liquid to distribute throughout your intestines. Avoid using the bathroom, and hold in the enema at least 1 hour, or all night if possible. Read and carefully follow any Instructions for Use provided with your medicine. Ask your doctor or pharmacist if you do not understand these instructions. Docusate generally produces bowel movement in 12 to 72 hours. Call your doctor if your symptoms do not improve after 72 hours. You should not use docusate for longer than 1 week, unless your doctor tells you to. Store at room temperature away from moisture, light, and heat. Do not freeze liquid medicine. What happens if I miss a dose? Since docusate is used when needed, you may not be on a dosing schedule. Skip any missed dose if it's almost time for your next dose. Do not use two doses at one time. What happens if I overdose? Seek emergency medical attention or call the Poison Help line at . What should I avoid while using docusate? Avoid using mineral oil, unless told to do so by a doctor. What are the possible side effects of docusate? Get emergency medical help if you have signs of an allergic reaction: hives; difficult breathing; swelling of your face, lips, tongue, or throat. Stop using docusate and call your doctor at once if: ?? you have rectal bleeding; ?? no bowel movement occurs after using a laxative; ?? you need to use a stool softener for more than 1 week; or ?? rash occurs. Less serious side effects may be more likely, and you may have none at all. This is not a complete list of side effects and others may occur. Call your doctor for medical advice about side effects. You may report side effects to FDA at 8-008-DTD-3276. What other drugs will affect docusate? Other drugs may affect docusate, including prescription and [id number] medicines, vitamins, and herbal products. Tell your doctor about all other medicines you use. Where can I get more information? Your pharmacist can provide more information about docusate. Remember, keep this and all other medicines out of the reach of children, never share your medicines with others, and use this medication only for the indication prescribed. Every effort has been made to ensure that the information provided by [employer]. ('[employer]') is accurate, up-to-date, and complete, but no guarantee is made to that effect. Drug information contained herein may be time sensitive. [employer] information has been compiled for use by healthcare practitioners and consumers in the [place] and therefore [employer] does not warrant that uses outside of the [place] are appropriate, unless specifically indicated otherwise. [employer] drug information does not endorse drugs, diagnose patients or recommend therapy. [employer] drug information is an informational resource designed to assist licensed healthcare practitioners in caring for their patients and/or to serve consumers viewing this service as a supplement to, and not a substitute for, the expertise, skill, knowledge and judgment of healthcare practitioners. The absence of a warning for a given drug or drug combination in no way should be construed to indicate that the drug or drug combination is safe, effective or appropriate for any given patient. [employer] does not assume any responsibility for any aspect of healthcare administered with the aid of information [employer] provides. The information contained herein is not intended to cover all possible uses, directions, precautions, warnings, drug interactions, allergic reactions, or adverse effects. If you have questions about the drugs you are taking, check with your doctor, nurse or pharmacist. Copyright 8526-2500 [employer]. Version: 5.01. Revision Date: 03/11/2021. Emergency Awareness and Preventative Care STROKE is [...] Assistance with quitting is available by contacting 2-765-JVAT-NOW. This is a free resource providing counseling, [...] This Visit (last charted value for your 04/12/2021 visit) Hematology 04/13/2021 3:21 AM WBC: 11.3 K/uL -- Normal range between ( 4.5 and 10.5 ) RBC: 3.86 Million/uL -- Normal range between ( 3.93 and 5.22 ) Hct: 34.8 % -- Normal range between ( 34.1 and 44.9 ) Hgb: 10.8 g/dL -- Normal range between ( 11.2 and 15.7 ) Platelet Count: 232 K/uL -- Normal range between ( 163 and 369 ) MCH: 28.0 pg -- Normal range between ( 25.6 and 32.2 ) MCHC: 31.0 Gram/dL -- Normal range between ( 32.2 and 36.5 ) MCV: 90.2 fL -- Normal range between ( 79.0 and 94.8 ) Slide Review: No RDW: 13.0 % -- Normal range between ( 11.7 and 14.9 ) MPV: 9.5 fL -- Normal range between ( 9.4 and 12.4 ) 03/25/2021 12:16 PM Eos %: 2.3 % -- Normal range between ( 0.0 and 7.0 ) [place] #: 0.45 K/uL -- Normal range between ( 0.16 and 1.00 ) Eos #: 0.16 x10(3)/uL -- Normal range between ( 0.00 and 0.80 ) [place] %: 6.6 % -- Normal range between ( 3.0 and 9.0 ) Baso %: 1.0 % -- Normal range between ( 0.0 and 1.5 ) Baso #: 0.07 x10(3)/uL -- Normal range between ( 0.00 and 0.20 ) Neut %: 48.3 % -- Normal range between ( 34.0 and 71.0 ) Neut #: 3.32 K/uL -- Normal range between ( 1.56 and 6.13 ) Lymph %: 41.5 % -- Normal range between ( 19.3 and 53.1 ) Lymph #: 2.85 x10(3)/uL -- Normal range between ( 1.00 and 3.90 ) IG#: 0.02 x10(3)/uL -- Normal range between ( 0.00 and 0.05 ) IG%: 0.30 % -- Normal range between ( 0.00 and 0.60 ) Microbiology 03/25/2021 12:16 PM MRSA Surveillance: See Result General Chemistry 04/13/2021 11:19 AM Glucose POC2: 148 mg/dL -- Normal range between ( 70 and 110 ) Device Comment 1: Device Comment 1 04/13/2021 3:21 AM Creatinine Level: 0.90 mg/dL -- Normal range between ( 0.55 and 1.02 ) Sodium Level: 141 mmol/L -- Normal range between ( 136 and 146 ) Potassium Level: 3.9 mmol/L -- Normal range between ( 3.5 and 5.1 ) Chloride Level: 109 mmol/L -- Normal range between ( 102 and 112 ) Carbon Dioxide Level: 23 mmol/L -- Normal range between ( 21 and 32 ) Anion Gap: 13 -- Normal range between ( 9 and 20 ) Bun/Creatinine: 27.8 -- Normal range between ( 8.0 and 20.0 ) Calcium Level: 8.3 mg/dL -- Normal range between ( 8.4 and 10.1 ) eGFR : >60 mL/min/1.73m2 eGFR NonAfrican: >60 mL/min/1.73m2 Glucose Level: 146 mg/dL -- Normal range between ( 74 and 106 ) Blood Urea Nitrogen: 25 mg/dL -- Normal range between ( 7 and 22 ) 03/25/2021 12:16 PM Hgb A1C: 6.3 % eAVG Glucose: 134 mg/dL Fructosamine: 220 Coagulation 03/25/2021 12:16 PM INR: 1.0 -- Normal range between ( 0.9 and 1.2 ) PTT: 27.6 Second(s) -- Normal range between ( 22.0 and 33.0 ) PT: 10.8 Second(s) -- Normal range between ( 9.2 and 12.0 ) Patient Name:LESLIE MARTÍNEZ vEerardo I have received and understand this information and was given the opportunity to ask questions. Patient/Research Affiliate Name: Patient/Research Affiliate Signature: Relationship to Patient: Clinician/Hospital Research Affiliate Signature: Date: documented in this encounter Plan of Treatment Not on file documented as of this encounter Visit Diagnoses Not on filedocumented in this encounter
--- OUTSIDE RECORDS SUMMARY | 2024-08-17 08:14 | XMS_ITS | Referral Summary ---
Author Organization [employer] ([place], [place], [place], [place]) Address [address] [place] [address] Care Team Providers Care Wall Worker Name Role Phone Unavailable Primary Care [...]
--- OUTSIDE RECORDS SUMMARY | 2024-08-17 08:14 | XMS_ITS | Encounter Summary ---
Author Organization [employer] ([place], [place], [place], [place]) Address [address] [place] [address] Care Team Providers Care Rubber Vulcanizing Machine Operator Name Role Phone Unavailable Primary Care Provider Unavailabl e Encounter Details Date Type Department Care Team (Late st Contact Info) Description 04/13/2021 Transcribed Document [facility] Family Medicine [facility] [place] [address] ProviderJason MD [address] [place] [id number] Social History Tobacco Use Types Packs/Day [...] Conversion Note - Jason ProviderMD - 04/13/2021 4:56 PM STRUCTURAL STEEL EQUIPMENT ERECTOR Final Discharge Planning Entered On: 04/13/2021 16:57 EST Performed On: 04/13/2021 16:56 EST by ARMIN TABOR, RN-Nibbler Operator Final Discharge Planning Discharge Arrangements : Patient [...] No Patient/Family Notified of Plan : Yes Is Patient Ready for Discharge? : Yes Physician Notified Patient is Ready for Discharge? : Yes Discharge To Care Management : Home/Residential/Halfway or Self Care -01 ARMIN TABOR RN-Nibbler Operator - 04/13/2021 16:56 EST Final Narrative Note Final Narrative Note : 65yo female pt s/p LTKA. Met with pt at bedside to discuss DCP. Pt has DME at home. Pt chose [facility] at [facility] PT during [employer]. Referral sent and confirmed 1st appt for 04/14 @ 1100. No other CM needs noted. ARMIN TABOR RN-Nibbler Operator - 04/13/2021 16:56 EST documented in this encounter Plan of Treatment Not on file documented as of this encounter Visit Diagnoses Not on filedocumented in this encounter
[2024-08-17 09:40] LABS: Anion Gap 16.6 mEq/L (5-15); Blood Urea Nitrogen 21 mg/dl (7-17); Calcium 9.2 mg/dl (8.4-10.2); Carbon Dioxide 24 mmol/L (22.0-30.0); Chloride 102 mmol/L (98-107); Creatinine,Serum 0.80 mg/dl (0.52-1.04); Estimated Glomerular Filt Rate 71 ml/min (>60); GFR (African American) 86 ML/MIN (>60); Glucose 104 mg/dl (74-100); Potassium 4.6 mmoL/L (3.5-5.1); Sodium 138 mmol/L (136-145)
[2024-08-17 09:51] LABS: Triiodothryronine (T3) Uptake 33 % (23.5-40.5)
[2024-08-17 09:52] LABS: Free Thyroxine Index 4.4 ug/dL (5.93-13.13); T4 (Thyroxine) 13.3 ug/dl (5.53-11.0)
[2024-08-17 13:11] LABS: Hemoglobin A1C 6.5 % (4.0-6.0)
[2024-08-17 17:06] LABS: Thyroid Stimulating Hormone 13.30 uIU/mL (0.465-4.68)
== END 2024-08-17 23:59 | disposition home or self-care (01) ==
LOC: LAB 08:10
PROVIDERS: PCP Internal Medicine Adolescent Medicine; Visit Provider Internal Medicine Adolescent Medicine
DX: E11.69 Type 2 diabetes mellitus with other specified complication (principal); E03.9 Hypothyroidism, unspecified
CPT/HCPCS: 36415; 80048; 83036; 84436; 84443; 84479

== ENCOUNTER 2024-09-24 13:28 | Outpatient (CLI) | payer MEDICARE, SELFPAY ==
--- OUTSIDE RECORDS SUMMARY | 2024-07-26 15:45 | XMS_ITS | Encounter Summary ---
[facility] Address [address] [place] [id number] Care Team Providers Care Hydro Station Operator Name Role Phone Ziyad Salomon MD Primary Care Provider + [phone] Reason for Visit * Cardiac (Routine) - Closed Specialty Diagnoses / Procedures Referred By Contac t Referred To Contact Cardiology Diagnoses Syncope, unspecified syncope type Procedures Holter Monitor - 72 Hour Up To 15 Days Stephania Ocampo APRN [address] [place] [address] Phone: tel: fax: [facility] [address] [facility] [address], [place] [address] Phone: tel: fax: Referral ID Status Reason Start Date Expiration Date Visits Re quested Visits Authorized [id number] Closed 07/23/2024 10/22/2025 1 1 Encounter Details Date Type Department Care Team (Latest Contact Info) Description 07/26/2024 3:45 PM EDT Ancillary Procedure [facility] [address] [facility] [address], [place] [address] Syncope, unspecified syncope type Social History Tobacco Use Types Packs/Day Years Used Date Smoking Tobacco: Never Smokeless Tobacco: Never Alcohol Use Standard Drinks/Week Comments Yes 0 (1 standard drink = 0.6 oz pur e alcohol) occasional Comments No Sex and Gender Information Value Date Recorded Sex Assigned at Female 09/05/2024 4:59 PM EDT Legal Sex Female 10:36 AM EDT Gender Identity Not on file Sexual Orientation Straight 09/05/2024 4: 59 PM EDT documented as of this encounter Plan of Treatment Upcoming Encounters Date Type Department Care Team (Late st Contact Info) Description 09/25/2024 12:45 PM EDT Office Visit [facility] [address] [place] [address] Kal Davila PA-C [address] [place] [address] 10/21/2024 1:30 PM EDT Office Visit [facility] [address] [facility] [address] [place] [id number] Sabas Trinidad MD [address] [place] [address] 11/27/2024 2:00 PM EDT Appointment [facility] [address] [place] [id number] documented as of this encounter Procedures Procedure Name Priority Date/Time Associated Diagnosis Comments HOLTER MONITOR >7 DAYS UP TO 15 DAYS HOOK-UP & INTERP Routine 07/26/2024 4:21 PM EDT Syncope, unspecified syncope type documented in this encounter Results * HOLTER MONITOR >7 DAYS UP TO 15 DAYS HOOK-UP & INTERP (07/26/2024 4:21 PM EDT) Heart rate minimum 50 bpm [employer] Heart rate maximum 119 bpm [employer] Heart rate (average) 74 bpm [employer] V-Tach - number of episodes 0 [employer] SVT - number of episodes 0 [employer] Pause - number of episodes 0 [employer] Longest bigeminy start 07/29/2024 5:31:58 PM EDT [employer] Longest bigeminy end 07/29/2024 5:32:08 PM EDT [employer] Longest bigeminy - duration 10.4 sec [employer] Longest trigeminy start 07/27/2024 11:30:26 PM EDT [employer] Longest trigeminy end 07/27/2024 11:30:33 PM EDT [employer] Longest trigeminy - duration 7.7 sec [employer] Isolated SVE frequency Rare [employer] Isolated SVE count 230 episodes [employer] Ectopic SVE isolated percent 0.02 % [employer] SVE couplets frequency Rare [employer] SVE couplets counts 15 episodes [employer] Ectopic SVE couplet percent 0 % [employer] SVE triplets frequency 0 [employer] SVE triplets counts 0 episodes [employer] Ectopic SVE triplet percent 0 % [employer] Isolated VE frequency Rare [employer] Isolated VE counts 4,499 episodes [employer] Ectopic VE isolated percent 0.31 % [employer] VE couplets frequency 0 [employer] VE couplets counts 0 episodes [employer] Ectopic VE couplet percent 0 % [employer] VE triplets frequency 0 [employer] VE triplets counts 0 episodes [employer] Ectopic VE triplet percent 0 % [employer] Enrollment period start 07/26/2024 4:16:28 PM EDT [employer] Enrollment period end 08/09/2024 1:52:35 PM EDT [employer] Total enrollment period 13 days 22 hours [employer] Device analysis time 13 days 18 hours [employer] Total patient event diaries 3 [employer] Total patient event triggers 4 [employer] Combined report prescription status COMPLETE [employer] Anatomical Region Laterality Modality Other Narrative 08/27/2024 4:30 PM EDT Sinus rhythm. Rare PACs. Rare PVCs. Periods of sinus bradycardia in the 50s. Patient had a min HR of 50 bpm, max HR of 119 bpm, and avg HR of 74 bpm. Predominant underlying rhythm was Sinus Rhythm. First Degree AV Block was present. Isolated SVEs were rare (<1.0%), SVE Couplets were rare (<1.0%), and no SVE Triplets were present. Isolated VEs were rare (<1.0%), and no VE Couplets or VE Triplets were present. Ventricular Bigeminy and Trigeminy were present. Study Description Monitor placed on patient 07/26/2024 4:16:28 PM EDT by ALICIA Green on 07/26/2024 . Instructions were provided to patient on use of holter monitor and duration of monitoring. The monitor was scanned on 08/27/2024. The patient was monitored for 13 days 18 hours and 0 [id number] days 18 hours. Indications for this exam include syncope. Average HR: 74. Min HR: 50. Max HR: 119. Stephania Ocampo APRN [facility] ORDERABLE S Final Result documented in this encounter Visit Diagnoses Diagnosis Syncope, unspecified syncope type documented in this encounter Care Teams Hydro Station Operator Relationship Specialty Start Date End Date Ziyad Salomon MD [address] [place] [address] [address] [place] [address] PCP - General Adolescent Medicine 10/25/16 documented as of this encounter
--- OUTSIDE RECORDS SUMMARY | 2024-09-09 11:00 | XMS_ITS | Encounter Summary ---
Author Organization [facility] Address [address] [place] [address] Care Team Providers Care Visual Educator Name Role Phone Ziyad Salomon MD Primary Care Provider + [phone] Reason for Referral * Cardiac (Routine) - Authorized Specialty Diagnoses / Procedures Referred By Contac t Referred To Contact Diagnoses Syncope and collapse Procedures Tilt Table Sabas Trinidad MD [address] [place] [address] [place] [address] Phone: tel: fax: [address] [address] Phone: tel: Referral ID Status Reason Start Date Expiration Date V isits Requested Visits Authorized [id number] Authorized 09/09/2024 12/09/2025 1 1 Reason for Visit * Reason Comments Hypertension Hyperlipidemia Encounter Details Date Type Department Care Team (Late st Contact Info) Description 09/09/2024 11:00 AM EDT Office Visit [facility] [address] [address] Sabas Trinidad MD [address] [facility] [address] [place] [address] Type 2 diabetes mellitus with other circulatory [...] PCP: Ziyad Salomon MD Date: 09/09/2024 Department: [facility] [address] [place] [phone] Chief Complaint: Here for follow-up Problem list: [...] no postictal state. Had extensive SINGLETARY in [facility]. Current Outpatient Medications Medication Instructions aspirin 81 [...] be reassessed in 6 months. Paroxysmal A-fib [id number] Continue current therapy. Hyperlipidemia LDL goal [...] Future Follow Up No follow-ups on file. [facility] Cardiology documented in this encounter Plan of Treatment Upcoming Encounters Date Type Department Care Team (Late st Contact Info) Description 09/25/2024 12:45 PM EDT Office Visit [facility] [address] [facility] [address] [place] [address] Kal Davila PA-C [address] [facility] 100 [place] [address] 10/21/2024 1:30 PM EDT Office Visit [facility] [address] [facility] [address] [place] [id number] Sabas Trinidad MD [address] [facility] [address] [place] [address] 11/27/2024 2:00 PM EDT Appointment [facility] [address] [place] [address] Scheduled Orders Name Type Priority Associated Diagnoses [...] collapse documented in this encounter Care Teams Visual Educator Relationship Specialty Start Date End Date Ziyad Salomon MD [address] [place] [address] [address] [place] [address] PCP - General Adolescent Medicine 10/25/16 documented as of this encounter
--- OUTSIDE RECORDS SUMMARY | 2024-09-24 13:31 | XMS_ITS | Encounter Summary ---
Author Organization [employer] ([place], [place], [place], [place]) Address [address] [place] [address] Care Team Providers Care Soap Chipper Name Role Phone Unavailable Primary Care Provider Unavailabl e Encounter Details Date Type Department Care Team (Late st Contact Info) Description 11/06/2020 Transcribed Document [facility] [place] [facility] [place] [address] ProviderJason MD [facility] [place] [address] Social History Tobacco Use Types [...] * Cerner Conversion Note - Historical MD aCsie - 11/06/2020 3:16 PM CDT Orthopedic Nurse [...] doctor here. She would like [facility]. An appt will be made. America Burroughs RN-Navigator - 11/06/2020 15:16 EDT documented in this encounter Plan of Treatment Not on file documented as of this encounter Visit Diagnoses Not on filedocumented in this encounter
--- OUTSIDE RECORDS SUMMARY | 2024-09-24 13:31 | XMS_ITS | Encounter Summary ---
Author Organization [employer] ([place], [place], [place], [place]) Address [address] [place] [address] Care Team Providers Care Demolition Crane Operator Name Role Phone Unavailable Primary Care Provider Unavailabl e Encounter Details Date Type Department Care Team (Late st Contact Info) Description 12/08/2020 Transcribed Document [facility] [place] [address] [place] [address] ProviderJason MD [address] [place] [address] Social History Tobacco Use Types [...] 1 Health Plan: ANTHEM HMOPPO Policy Number: [id number] Authorization Number: NPR Insurance 2 Health Plan: MEDICARE Policy Number: [id number] Authorization Number: Insurance Primary Name : Lux [id number] Authorization Status-Primary : No precert required Authorized Service Begin Date-Primary : 12/07/2020 EDT Observation Authorization Nbr-Primary : NPR per STAR notes Historical Authorization Comments-Primary : Comment 1: pt is [place]iana for OP total knee replacement on 12/07/20 [place] NPR per STAR notes (ROSSY ALEX, Manager Urgent Care 12/03/2020 14:49) Damaris Morse Rn-Utilization Review - 12/08/2020 12:34 EDT Electronically signed by Faye [facility] Conversion Bologna Maker Cerner at 06/03/2022 8:45 AM CDT documented in this encounter Plan of Treatment Not on file documented as of this encounter Visit Diagnoses Not on filedocumented in this encounter
--- OUTSIDE RECORDS SUMMARY | 2024-09-24 13:31 | XMS_ITS | Encounter Summary ---
Author Organization [employer] ([place], [place], [place], [place]) Address [address] [place] [address] Care Team Providers Care Mat Tester Name Role Phone Unavailable Primary Care Provider Unavailabl e Encounter Details Date Type Department Care Team (Late st Contact Info) Description 12/08/2020 Transcribed Document [facility] Radiology 1 [place] [address] Marley Quinteros MD [facility] [address] [place] [address] Social History Tobacco Use Types [...] Date 12-08-2020 Primary Care Provider RAYMUNDO SNYDER (REF)[facility] Discharge Diagnosis Right total knee arthoplasty Procedures [...] Compartments are soft. Discharge Disposition Home with [facility] OPT Discharge Follow Up GREG WHITTAKER PA-ORJessica - 10:15 AM Discharge Medications (19) Active [...] mg sublingual spray 0.4 mg = 1 [place], SubLINgual, Q5Min Percocet 5/325 oral tablet 1 [...] swelling. Pending Labs In Process SENDOUT REPORT [id number], [id number], RT - Routine, 12/07/20 9:23:00 EDT Pathology Tissue Request [id number], [id number], 12/07/20 9:23:00 EDT, Collected, RT - Routine, [...]
--- OUTSIDE RECORDS SUMMARY | 2024-09-24 13:31 | XMS_ITS | Encounter Summary ---
Author Organization [employer] ([place], [place], [place], [place]) Address [address] [place] [address] Care Team Providers Care Snow Plow Operator Name Role Phone Unavailable Primary Care Provider Unavailabl e Encounter Details Date Type Department Care Team (Late st Contact Info) Description 12/03/2020 Transcribed Document [facility] [place] [address] [place] [address] ProviderJason MD [address] [place], [place] [id number] Social History Tobacco Use Types Packs/Day Years [...] On: 12/03/2020 14:49 EDT by ROSSY ALEX, Glass Polisher Primary Insurance Authorization Authorization and Policy Numbers : Insurance 1 Health Plan: ANTHEM HMOPPO Policy Number: [id number] Authorization Number: Insurance 2 Health Plan: MEDICARE Policy Number: [id number] Authorization Number: Insurance Primary Name : Lux [id number] Authorization Status-Primary : No precert required Authorized Service Begin Date-Primary : 12/07/2020 EDT Observation Authorization Nbr-Primary : NPR per STAR notes Authorization Comments-Primary : pt is [place] for OP total knee replacement on 12/07/20 [place] NPR per STAR notes Historical Authorization Comments-Primary : No Authorization Comments Found ROSSY ALEX, Glass Polisher - 12/03/2020 14:49 EDT documented in this encounter Plan of Treatment Not on file documented as of this encounter Visit Diagnoses Not on filedocumented in this encounter
--- OUTSIDE RECORDS SUMMARY | 2024-09-24 13:31 | XMS_ITS | Encounter Summary ---
Author Organization [employer] ([place], [place], [place], [place]) Address [address] [place] [address] Care Team Providers Care Plant Maintenance Mechanic Name Role Phone Unavailable Primary Care Provider Unavailabl e Encounter Details Date Type Department Care Team (Late st Contact Info) Description 12/08/2020 Transcribed Document [facility] [place] [address] [place] [address] ProviderJason MD [address] [place] [address] Social History Tobacco Use Types [...] EDT Performed On: 12/08/2020 16:26 EDT by RAMIN TABOR RN-Machine Tool Builder Final Discharge Planning Discharge Arrangements : Patient [...] : Yes Discharge To Care Management : Home/Residential/Senior Care or Self Care - ARMIN TABOR RN-Machine Tool Builder - 12/08/2020 16:26 EDT documented in this encounter Plan of Treatment Not on file documented as of this encounter Visit Diagnoses Not on filedocumented in this encounter
--- OUTSIDE RECORDS SUMMARY | 2024-09-24 13:31 | XMS_ITS | Encounter Summary ---
Author Organization [employer] ([place], [place], [place], [place]) Address [address] [place] [address] Care Team Providers Care Sound Engineering Technician Name Role Phone Unavailable Primary Care Provider Unavailabl e Encounter Details Date Type Department Care Team (Late st Contact Info) Description 11/13/2020 Transcribed Document [facility] [place] [address] [place] [address] ProviderJason MD [address] [place], [place] [id number] Social History Tobacco Use Types Packs/Day Years [...] from sitting : Severe 7. Bending to floor/garbage pick up worker an object : Moderate KOOS JR Raw [...]
--- OUTSIDE RECORDS SUMMARY | 2024-09-24 13:31 | XMS_ITS | Encounter Summary ---
Author Organization [facility] ([place], [place], [place], [place]) Address [address] [place] [address] Care Team Providers Care Reporting Process Consultant Name Role Phone Unavailable Primary Care Provider Unavailabl e Encounter Details Date Type Department Care Team (Late st Contact Info) Description 12/07/2020 Transcribed Document [facility] [place] [address] [place] [address] ProviderJason MD [address] [place], [place] [id number] Social History Tobacco Use Types Packs/Day Years [...] On: 12/07/2020 14:08 EDT by Mikhail Cedillo Recreation Director Cert Lead Meds to Bed Enrollment Patient Enrollment Decision: : Yes/enroll in meds to bed program Mikhail Cedillo Recreation Director Cert Lead - 12/07/2020 14:49 EDT documented in this encounter Plan of Treatment Not on file documented as of this encounter Visit Diagnoses Not on filedocumented in this encounter
--- OUTSIDE RECORDS SUMMARY | 2024-09-24 13:31 | XMS_ITS | Encounter Summary ---
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
--- OUTSIDE RECORDS SUMMARY | 2024-09-24 13:31 | XMS_ITS | Encounter Summary ---
Author Organization [employer] ([place], [place], [place], [place]) Address [address] [place] [address] Care Team Providers Care Roller Coaster Designer Name Role Phone Unavailable Primary Care Provider Unavailabl e Encounter Details Date Type Department Care Team (Late st Contact Info) Description 11/19/2020 Transcribed Document [facility] [place] [address] [place] [address] ProviderJason MD [address] [place] [address] Social History Tobacco Use Types [...] Oxygen Therapy Mode : Room air YARIEL CAVAZOS RN - 11/19/2020 11:15 EDT Pain Assessment Pain Assessment : Initial assessment Pain Scale Goal : 5 Pain Scale Used : 0-10 Scale YARIEL CAVAZOS RN - 11/19/2020 11:15 EDT Height and Weight, Clinical Dosing Height Source : Measured Height Entry Format : Isabella Height, Feet : 5 ft(Converted to: 152 cm, 60 Inch) Height, Inches : 3 Inch(Converted to: 0 ft 3 Inch, 7.62 cm) Clinical Height : 160.02 cm Weight Source : Standing scale Weight Entry Format : Isabella Clinical Dosing Weight : 104.09 kg Weight, Pounds : 229 lb Body Surface Area (BSA) : 2.05 m2 Body Mass Index : 40.6 kg/m2 (>HHI) [place] Body Weight : 52 kg YARIEL CAVAZOS [...] : Yes Spiritual/Cultural Needs Comment : 12/07 Shinto Preference : Pentecostal, Gurpreet Spiritual/Cultural Needs Comment : 12/07 YARIEL CAVAZOS RN - 11/19/2020 11:15 EDT [place] Suicide Severity Rating Scale (C-SSRS) CSSRS Past [...] Obtained From : Patient Primary Language : Bahamian Preferred Communication Mode : Verbal Communication Barrier : None Traffic Checker Needed : No Objects to Sharing Info [...]
--- OUTSIDE RECORDS SUMMARY | 2024-09-24 13:31 | XMS_ITS | Encounter Summary ---
Author Organization [employer] ([place], [place], [place], [place]) Address [address] [place] [address] Care Team Providers Care Maintenance And Engineering Manager Name Role Phone Unavailable Primary Care Provider Unavailabl e Encounter Details Date Type Department Care Team (Late st Contact Info) Description 12/07/2020 Transcribed Document [facility] [place] [address] [place] [address] ProviderJason MD [address] [place], [place] [id number] Social History Tobacco Use Types Packs/Day Years [...] 12/07/2020 7:53 EDT by Dano Max PATIENT WEB PRESS JOGGER Phone Call for Consults Consult Phone Call/Page Attempt : Other: Completed 12/07 Dano Max PATIENT WEB PRESS JOGGER - 12/08/2020 8:11 EDT documented in this encounter Plan of Treatment Not on file documented as of this encounter Visit Diagnoses Not on filedocumented in this encounter
--- OUTSIDE RECORDS SUMMARY | 2024-09-24 13:31 | XMS_ITS | Clinical Summary ---
Author Organization [facility] Address [address] [place] [address] Care Team Providers Care Acid Treater Name Role Phone Unavailable Primary Care Provider Unavailabl e Social History Tobacco Use Types Packs/Day Years Used Date Smoking Tobacco: Never Assessed Comments Unknown Sex and Gender Information Value Date Recorded Sex Assigned at Not on file Legal Sex Female 6:14 AM EDT Gender Identity Not on file Sexual Orientation Not on file Plan of Treatment Health Maintenance Due Date Last Done Comments Breast Cancer Screening 1953 CT Colonography 1953 Colonoscopy 1953 Colorectal Cancer Screening 1955 FIT-DNA 1955 FIT 1955 FOBT 1955 Hepatitis C Screening 1955 Sigmoidoscopy 1953 Tdap/Td Vaccine >11 yo (1 - Tdap) 1972 Pneumococcal Vaccines >50 yo (1 of 1 - PCV) 06/06/2003 Shingles (Shingrix) (1 of 2) 06/06/2003 Osteoporosis Screening 2018 Annual SDOH Screening 02/14/2024 Influenza Vaccine (#1) 2024 Haemophilus Influenzae Type B (Hib) Vaccine Aged Out No longer eligible b ased on patient's age to complete this topic Hepatitis A (HepA) Vaccine Aged Out N o longer eligible based on patient's age to complete this topic Hepatitis B (HepB) Vaccine Aged Out N o longer eligible based on patient's age to complete this topic Meningococcal ACWY Aged Out No longer eligible based on patient's age to complete this topic Polio (IPV) Aged Out No longer eligi ble based on patient's age to complete this topic Rotavirus (RV) Vaccine Aged Out No lo nger eligible based on patient's age to complete this topic
--- OUTSIDE RECORDS SUMMARY | 2024-09-24 13:31 | XMS_ITS | Encounter Summary ---
Author Organization [employer] ([place], [place], [place], [place]) Address [address] [place] [address] Care Team Providers Care Enrober Tender Name Role Phone Unavailable Primary Care Provider Unavailabl e Encounter Details Date Type Department Care Team (Late st Contact Info) Description 12/08/2020 Transcribed Document [facility] Radiology 1 [place] [address] Mary Oneal MD [facility] [address] [address] Social History Tobacco Use Types [...] is a 65 yo female admitted to [facility] per Dr. Quinteros for a right total [...] mg sublingual spray 0.4 mg = 1 [place], SubLINgual, Q5Min Probiotic Formula oral capsule 2 [...]
--- OUTSIDE RECORDS SUMMARY | 2024-09-24 13:31 | XMS_ITS | Encounter Summary ---
Author Organization [employer] ([place], [place], [place], [place]) Address [address] [place] [address] Care Team Providers Care Manager Adult Name Role Phone Unavailable Primary Care Provider Unavailabl e Encounter Details Date Type Department Care Team (Late st Contact Info) Description 12/08/2020 Transcribed Document [facility] [address] [place] [address] ProviderJason MD [address] [place] [address] Social History Tobacco Use Types [...] On: 12/08/2020 16:14 EDT by ARMIN TABOR RN-Pole Setter Initial Assessment I Previously Documented Living Environment : No qualifying data available. Living Situation : Home Patient Lives With : Spouse Is the Patient a Caregiver at Home? : No Emergency Contact #1 : Moisés Martínez Emergency Contact #1 Emergency Contact #1 Relationship : son Emergency Contact #2 : Moisés Martínez Emergency Contact #2 Emergency Contact #2 Relationship : spouse ARMIN TABOR RN-Pole Setter - 12/08/2020 16:14 EDT Initial Assessment II Sensory and Motor Deficits : None Current Home Treatments and Equipment : None Does the Patient have a Floor to SNF Benefit? : No ARMIN TABOR RN-Pole Setter - 12/08/2020 16:14 EDT Discharge Needs I Anticipated Discharge Date : 12/08/2020 EDT Anticipated Discharge To, CM : Home with family care Current Home Treatment/Equipment : Current Home Treatment/Equipment No qualifying data available. Post Acute/Home Treatments : Bedside commode, Walker Documentation Status Complete : Yes ARMIN TABOR RN-Pole Setter - 12/08/2020 16:14 EDT Discharge Needs II Professional Skilled Services : Professional Skilled Services No qualifying data available. Services and Community Resources : Physical Therapy Needs Assistance with Transportation : No Discharge Options Discussed with Patient : DME, Outpatient services Patient Discharge Goal : Home ARMIN TABOR RN-Pole Setter - 12/08/2020 16:14 EDT Narrative Note Historical Narrative Note : 65yo female pt s/p RTKA. Met with pt and spouse at bedside to discuss DCP. Pt needs FRW and BSC and has no DME provider preference. Obtained them from [facility] and they have been delivered. Pt chose OPT at [facility]. Referral sent and confirmed 1st appt for 12/09 @ 1100. No other CM needs noted. ARMIN TABOR RN-Pole Setter - 12/08/20 16:24:10 Narrative Note : 65yo female pt s/p RTKA. Met with pt and spouse at bedside to discuss DCP. Pt needs FRW and BSC and has no DME provider preference. Obtained them from [facility] and they have been delivered. Pt chose OPT at [facility] during [employer]. Referral sent and confirmed 1st appt for 12/09 @ 1100. No other CM needs noted. ARMIN TABOR RN-Pole Setter - 12/08/2020 16:36 EDT documented in this encounter Plan of Treatment Not on file documented as of this encounter Visit Diagnoses Not on filedocumented in this encounter
--- OUTSIDE RECORDS SUMMARY | 2024-09-24 13:31 | XMS_ITS | Encounter Summary ---
Author Organization [employer] ([place], [place], [place], [place]) Address [address] [place] [address] Care Team Providers Care Medical Transcriptionist Name Role Phone Unavailable Primary Care Provider Unavailabl e Encounter Details Date Type Department Care Team (Late st Contact Info) Description 12/07/2020 Transcribed Document [facility] [place] [facility] [place] [address] ProviderJason MD [address] [place] [address] Social History Tobacco Use Types [...] : Belt, gait, Walker, front wheel KISHA ARYGOZA, PT - 12/07/2020 14:42 EDT Gait Training/Assessment, [...] KISHA RAYGOZA, PT - 12/07/2020 14:42 EDT Rehab Nurse Goals Mobility/Bed Mobility LTG PT Grid Goal [...] Discharge : Yes KISHA RAYGOZA, PT - 12/07/2020 14:[address] [facility] PT Charges PT Eval Low Complexity : 1 KISHA RAYGOZA, PT - 12/07/2020 14:42 EDT documented in this encounter Plan of Treatment Not on file documented as of this encounter Visit Diagnoses Not on filedocumented in this encounter
--- OUTSIDE RECORDS SUMMARY | 2024-09-24 13:31 | XMS_ITS | Encounter Summary ---
Author Organization [employer] ([place], [place], [place], [place]) Address [address] [place] [address] Care Team Providers Care Garment Presser Name Role Phone Unavailable Primary Care Provider Unavailabl e Encounter Details Date Type Department Care Team (Late st Contact Info) Description 11/13/2020 Transcribed Document [facility] [place] [address] [place] [address] ProviderJason MD [address] [place], [place] [id number] Social History Tobacco Use Types Packs/Day Years [...] from sitting : Moderate 7. Bending to floor/sheepskin pickler an object : None BIRD MICHAELS Raw [...] (ref) : 15 OCTAVIO OCASIO OTR/Alejandro - 04/27/2021 13:43 EDT documented in this encounter Plan of Treatment Not on file documented as of this encounter Visit Diagnoses Not on filedocumented in this encounter
--- OUTSIDE RECORDS SUMMARY | 2024-09-24 13:31 | XMS_ITS | Encounter Summary ---
Author Organization [employer] ([place], [place], [place], [place]) Address [address] [place] [address] Care Team Providers Care Information Technology Data Analyst Name Role Phone Unavailable Primary Care Provider Unavailabl e Encounter Details Date Type Department Care Team (Late st Contact Info) Description 12/08/2020 Transcribed Document [facility] [place] [facility] [place] [address] ProviderJason MD [address] [place] [id number] Social History Tobacco Use Types Packs/Day Years [...] KISHA RAYGOZA, PT - 12/08/2020 11:41 EDT documented in this encounter Plan of Treatment Not on file documented as of this encounter Visit Diagnoses Not on filedocumented in this encounter
--- OUTSIDE RECORDS SUMMARY | 2024-09-24 13:31 | XMS_ITS | Encounter Summary ---
Author Organization [employer] ([place], [place], [place], [place]) Address [address] [place] [address] Care Team Providers Care Wire Transfer Clerk Name Role Phone Unavailable Primary Care Provider Unavailabl e Encounter Details Date Type Department Care Team (Late st Contact Info) Description 12/08/2020 Transcribed Document [facility] [facility] [place] [address] [place] [address] ProviderJason MD [address] [place], [place] [id number] Social History Tobacco Use Types Packs/Day Years [...] Performed On: 12/08/2020 15:51 EDT by Inna Burgos Rn Stroke/Warfarin Instructions Stroke/TIA Discharge Ins : N/A Warfarin Discharge Ins : N/A Inna Burgos Rn - 12/08/2020 15:51 EDT documented in this encounter Plan of Treatment Not on file documented as of this encounter Visit Diagnoses Not on filedocumented in this encounter
--- OUTSIDE RECORDS SUMMARY | 2024-09-24 13:31 | XMS_ITS | Encounter Summary ---
Author Organization [employer] ([place], [place], [place], [place]) Address [address] [place] [address] Care Team Providers Care Videotape Recording Engineer Name Role Phone Unavailable Primary Care Provider Unavailabl e Encounter Details Date Type Department Care Team (Late st Contact Info) Description 12/08/2020 Transcribed Document [facility] [place] Family Medicine [address] [place] [address] ProviderJason MD [address] [place] [address] Social History Tobacco Use Types [...]
--- OUTSIDE RECORDS SUMMARY | 2024-09-24 13:31 | XMS_ITS | Encounter Summary ---
Author Organization [employer] ([place], [place], [place], [place]) Address [address] [place] [address] Care Team Providers Care Branding Machine Operator Name Role Phone Unavailable Primary Care Provider Unavailabl e Encounter Details Date Type Department Care Team (Late st Contact Info) Description 12/07/2020 Transcribed Document [facility] [place] [facility] [place] [address] ProviderJason MD [address] [place] [address] Social History Tobacco Use Types [...] KISHA Sutton PT - 12/08/2020 11:32 EDT Pet Care Technician Goals Mobility/Bed Mobility LTG PT Grid Goal [...] R knee ROM 0-103 degrees, No Joint assistant women's rowing coach present during treatment. SBA gait x [...] 0 Pain Score Post-Intervention. : 0 KISHA RAYGOZA PT - 12/08/2020 11:32 EDT Image 1 [...]
--- OUTSIDE RECORDS SUMMARY | 2024-09-24 13:32 | XMS_ITS | Encounter Summary ---
Author Organization [employer] ([place], [place], [place], [place]) Address [address] [place] [address] Care Team Providers Care Sausage Mixer Name Role Phone Unavailable Primary Care Provider Unavailabl e Encounter Details Date Type Department Care Team (Late st Contact Info) Description 04/12/2021 Transcribed Document [facility] [place] Medicine [facility] [place] [address] ProviderJason MD [address] [place] [address] Social History Tobacco Use Types Packs/Day [...] - Historical ProviderMD - 04/12/2021 2:01 PM PRINTED CIRCUIT BOARDS INSPECTOR Patient: LESLIE MARTÍNEZ Age: 65 Years Sex: Female : 1955 Chief Complaint L knee OA Primary Care Provider RAYMUNDO SNYDER (REF), -[facility] History of Present Illness See 5-year-old [...] Full Code, Continuous Order Electronically signed by [facility], [facility] Conversion Cigarette And Filter Chief Inspector Cerner at 06/03/2022 8:42 AM CDT documented in this encounter Plan of Treatment Not on file documented as of this encounter Visit Diagnoses Not on filedocumented in this encounter
--- OUTSIDE RECORDS SUMMARY | 2024-09-24 13:32 | XMS_ITS | Encounter Summary ---
Author Organization [employer] ([place], [place], [place]) Address [address] [place] [address] Care Team Providers Care Kennel Assistant Name Role Phone Unavailable Primary Care Provider Unavailabl e Encounter Details Date Type Department Care Team (Late st Contact Info) Description 12/07/2020 Transcribed Document [facility] Radiology [address] [place] [address] Gisele Quinteros MD [facility] [place] [facility] [place] [place] [address] Social History Tobacco Use Types [...] Diagnosis Osteoarthritis right knee *Surgeon(s) Surgeon: Aldair Sueding Machine Operator: Moisés Taylor CSA *Procedure Narrative Patient identified [...] and PCL were resected. Next, distal femoral airplane pilot chief hole was drilled and the intramedullary guide [...] with a Bovie. Femur was sized. The Implisiton gap supervisor feed mill was placed and tensed. Posterior condyle resection as noted above. Drill holes made through the supervisor feed mill and the appropriately sized four-in-one block placed [...]
--- OUTSIDE RECORDS SUMMARY | 2024-09-24 13:32 | XMS_ITS | Encounter Summary ---
Author Organization [employer] ([place], [place], [place], [place]) Address [address] [place] [address] Care Team Providers Care Braider Operator Name Role Phone Unavailable Primary Care Provider Unavailabl e Encounter Details Date Type Department Care Team (Late st Contact Info) Description 12/07/2020 Transcribed Document [facility] [place] Medicine [facility] [place] [address] ProviderJason MD [address] [place] [id number] Social History Tobacco Use Types Packs/Day Years [...] CARE BEDSIDE NON-EXEMPT - 12/07/2020 17:48 EDT documented in this encounter Plan of Treatment Not on file documented as of this encounter Visit Diagnoses Not on filedocumented in this encounter
--- OUTSIDE RECORDS SUMMARY | 2024-09-24 13:32 | XMS_ITS | Encounter Summary ---
Author Organization [employer] ([place], [place], [place], [place]) Address [address] [place] [address] Care Team Providers Care Lamination Inspector Name Role Phone Unavailable Primary Care Provider Unavailabl e Encounter Details Date Type Department Care Team (Late st Contact Info) Description 12/07/2020 Transcribed Document [facility] [place] Family Medicine [facility] [place] [address] ProviderJason MD [address] [place] [address] Social History Tobacco Use Types Packs/Day [...] ENRIQUE NAQVI OTR/Alejandro - 12/08/2020 12:20 EDT Skiver Hand Goals, OT Dressing, Lower Body LTG Grid [...] long handled sponge, long handled shoe horn, protection engineer, sock aid, and leg steamfitter. Pt dressed fully with Aileen and cueing [...]
--- OUTSIDE RECORDS SUMMARY | 2024-09-24 13:32 | XMS_ITS | Encounter Summary ---
Author Organization [employer] ([place], [place], [place], [place]) Address [address] [place] [address] Care Team Providers Care Juice Packaging Machines Setter Name Role Phone Unavailable Primary Care Provider Unavailabl e Encounter Details Date Type Department Care Team (Late st Contact Info) Description 12/07/2020 Transcribed Document [facility] [place] [address] [place] [address] ProviderJason MD [address] [place], [place] [id number] Social History Tobacco Use Types Packs/Day Years [...] Ministry Provided to : Patient, Family/Significant other Oriental Orthodox Preference : Methodist, Gurpreet ASYA CUELLO - 12/07/2020 8:00 EDT Spiritual Assessment Spiritual Assessment Comment/Summary Points : Provided pre-surgery visit and prayer with patient and . Spirital Assessment Comment/Summary Report : SPIRITUAL ASSESSMENT COMMENT/SUMMARY No qualifying data available. ASYA CUELLO - 12/07/2020 8:00 EDT Interventions Emotional Support : Empathic/Engaged listening, Family/Significant other supported Spiritual and Oriental Orthodox : Prayer shared, Spiritual/Oriental Orthodox support provided ASYA CUELLO 12/07/2020 8:00 EDT documented in this encounter Plan of Treatment Not on file documented as of this encounter Visit Diagnoses Not on filedocumented in this encounter
--- OUTSIDE RECORDS SUMMARY | 2024-09-24 13:32 | XMS_ITS | Encounter Summary ---
Author Organization [employer] ([place], [place], [place], [place]) Address [address] [place] [address] Care Team Providers Care Waste Treatment Operator Name Role Phone Unavailable Primary Care Provider Unavailabl e Encounter Details Date Type Department Care Team (Late st Contact Info) Description 12/07/2020 Transcribed Document [facility] [place] Medicine [facility] [place] [address] ProviderJason MD [facility] [place] [id number] Social History Tobacco Use Types Packs/Day Years [...] : No Emergency Contact #1 : [facility] Emergency Contact #1 Emergency Contact #1 Relationship : son Emergency Contact #2 : [facility] Emergency Contact #2 Emergency Contact #2 Relationship : spouse Information Obtained From : Patient Primary Language : Afghan Preferred Communication Mode : Verbal Communication Barrier : None Architecture Manager Needed : No Objects to Sharing Info [...] Scale Risk Level : 25-45 Medium Risk [place] Fall Interventions : Fall prevention handout/education per [...] Source : Measured Height Entry Format : [place] Height, Feet : 5 ft(Converted to: 152 cm, 60 Inch) Height, Inches : 3 Inch(Converted to: 0 ft 3 Inch, 7.62 cm) Clinical Height : 160.02 cm Weight Source : Standing scale Weight Entry Format : [place] Clinical Dosing Weight : 104.09 kg Weight, Pounds : 229 lb Body Surface Area (BSA) : 2.05 m2 Body Mass Index : 40.6 kg/m2 (>HHI) Oracle Body Weight : 52 kg Ca Brennan [...] CARE BEDSIDE NON-EXEMPT - 12/07/2020 14:47 EDT [place] Suicide Severity Rating Scale (C-SSRS) CSSRS Past [...]
--- OUTSIDE RECORDS SUMMARY | 2024-09-24 13:32 | XMS_ITS | Encounter Summary ---
Author Organization [employer] ([place], [place], [place], [place]) Address [address] [place] [address] Care Team Providers Care Food Consultant Name Role Phone Unavailable Primary Care Provider Unavailabl e Encounter Details Date Type Department Care Team (Late st Contact Info) Description 12/07/2020 Transcribed Document [facility] [place] Family Medicine [facility] [place] [address] ProviderJason MD [address] [place] [address] Social History Tobacco Use Types [...] Jason ProviderMD - 12/07/2020 10:22 AM CDT [facility] Main OR PACU Summary Primary Physician: MARLEY CLARK MD-ORT Finalized Date/Time: 12/07/20 14:09:17 Pt. Name: LESLIE MARTÍNEZ /Sex: 1955 Female Med Rec #: [id number] Physician: MARLEY CLARK MD-ORT Financial #: [id number] Pt. Type: O Room/Bed: 637/1 Admit/Disch: 12/07/20 05:53:00 - Institution: [facility] Main OR PACU I Case Times Entry 1 In PACU I 12/07/20 11:47:00 Ready for PACU 12/07/20 13:55:00 Discharge Discharge from PACU 12/07/20 13:55:00 I Last Modified By: ROSEANN MURRAY RN 12/07/20 14:09:10 Finalized By: ROSEANN MURRAY, RN Document Signatures Signed By: ROSEANN MURRAY RN 12/07/20 14:[address] [facility] Conversion Milled Lumber Grader Cerner at 06/03/2022 8:53 AM CDT documented in this encounter Plan of Treatment Not on file documented as of this encounter Visit Diagnoses Not on filedocumented in this encounter
--- OUTSIDE RECORDS SUMMARY | 2024-09-24 13:32 | XMS_ITS | Encounter Summary ---
Author Organization [employer] ([place], [place], [place], [place]) Address [address] [place] [address] Care Team Providers Care Psychiatric Nursing Assistant Name Role Phone Unavailable Primary Care Provider Unavailabl e Encounter Details Date Type Department Care Team (Late st Contact Info) Description 12/07/2020 Transcribed Document [facility] [place] [facility] [place] [address] ProviderJason MD [address] [place] [address] Social History Tobacco Use Types [...] of Dr. Quinteros or Dr. Juarez, call [phone] If you are a patient of Dr. Hernandez, call [phone] Nurse Navigator: Jesenia Burroughs Office: [phone]; ; available during regular business hours documented in this encounter Plan of Treatment Not on file documented as of this encounter Visit Diagnoses Not on filedocumented in this encounter
--- OUTSIDE RECORDS SUMMARY | 2024-09-24 13:32 | XMS_ITS | Encounter Summary ---
Author Organization [employer] ([place], [place], [place], [place]) Address [address] [place] [address] Care Team Providers Care Cytogenetics Laboratory Manager Name Role Phone Unavailable Primary Care Provider Unavailabl e Encounter Details Date Type Department Care Team (Late st Contact Info) Description 12/07/2020 Transcribed Document [facility] [place] Family Medicine [facility] [place] [address] ProviderJason MD [address] [place] [address] Social History Tobacco Use Types [...] Jason MD - 12/07/2020 10:[address] [facility] Main OR IntraOp Summary Primary Physician: MARLEY CLARK MD-ORT Finalized Date/Time: 12/08/20 15:20:49 Pt. Name: LESLIE MURCIA /Sex: 1955 Female Med Rec #: [id number] Physician: MARLEY CLARK MD-ORT Financial #: [id number] Pt. Type: O Room/Bed: 637/1 Admit/Disch: 12/07/20 05:53:00 - Institution: [facility] IntraOp Case Attendance Entry 1 Entry 2 Entry 3 Case Attendee MARLEY CLARK RHYNE, HEATHER, MD-SELAM RON, FLORENCIO SOLOMON SIGNALING PROJECT ENGINEER, ORGAN BUILDER Role Performed Surgeon/Proceduralist, Anesthesiologist of ORGAN BUILDER/Nurse Top Coater First Record Time In 12/07/20 09:46:00 12/07/20 [...] KAPOOR CSA Compton, Tracy R, Nils Skelton, Trust Advisor Role Performed Slot Host, First Behavioral Instructor, First Scrub, First Time In 12/07/20 09:46:00 [...] Attendee OTHER, ATTENDEE YARIEL AVENDANO, Khadar Leon, Career Development Associate Role Performed Vendor Behavioral Instructor, Second Scrub, First Time In 12/07/20 09:46:00 12/07/20 09:46:00 12/07/20 09:46:00 Time Out 12/07/20 11:44:00 12/07/20 11:44:00 12/07/20 11:44:00 Procedure Knee Total Joint Knee Total Joint Knee Total Joint Replacement(Right) Replacement(Right) Replacement(Right) Other Attendee RK BRIDGES LUNCH RELIEF Superficial Wound Closed By: Last Modified By: Jazlyn Medeiros Rn Compton, Tracy R, Jazlyn Donovan Rn 12/07/20 12:04:09 12/07/20 12:04:09 12/07/20 12:04:09 [facility] IntraOp Case Attendance Audit 12/07/20 12:04:09 Counter Top Maker: [id number] Modifier: [id number] 1 <+> Time Out 1 <*> Procedure [...] Procedure Knee Total Joint Replacement(Right) 12/07/20 11:27:59 Counter Top Maker: [id number] Modifier: [id number] 1 <*> Procedure Knee Total Joint Replacement(Right) [...] Procedure <+> 9 Other Attendee 12/07/20 11:08:10 Counter Top Maker: [id number] Modifier: [id number] 1 <*> Procedure Knee Total Joint Replacement(Right) [...] Role Performed <+> 8 Procedure 12/07/20 10:15:58 Counter Top Maker: [id number] Modifier: [id number] 1 <+> Time In 1 <*> Procedure [...] Procedure <+> 7 Other Attendee 12/07/20 08:11:26 Counter Top Maker: [id number] Modifier: [id number] <+> 1 Procedure 2 <*> Procedure Knee Total Joint Replacement(Right) 3 <*> Procedure Knee Total Joint Replacement(Right) 4 <*> Procedure Knee Total Joint Replacement(Right) 5 <*> Procedure Knee Total Joint Replacement(Right) 6 <*> Procedure Knee Total Joint Replacement(Right) [facility] IntraOp Case Times Entry 1 Patient In Room Time 12/07/20 09:46:00 Out Room Time 12/07/20 11:44:00 Anesthesia Start Time 12/07/20 09:46:00 Stop Time 12/07/20 11:44:00 Surgery / Procedure Times Start Time 12/07/20 10:22:00 Stop Time 12/07/20 11:34:00 Last Modified By: Jazlyn Medeiros Rn 12/07/20 12:04:01 [facility] IntraOp Case Times Audit 12/07/20 12:04:01 Counter Top Maker: [id number] Modifier: [id number] <+> 1 Out Room Time <+> 1 Stop Time <+> 1 Stop Time 12/07/20 10:22:32 Counter Top Maker: [id number] Modifier: [id number] <+> [address] [facility] IntraOp Cautery Entry 1 ESU Identification Cautery Type Monopolar ESU ID Number [id number] ID Type Hospital Number Cautery Settings Cut [...] Modified By: Jazlyn Medeiros Rn 12/07/20 08:07:20 [facility] IntraOp Communication Entry 1 Entry 2 Communication To Family/Significant other Family/Significant other Comment CLOSING Communication By Jazlyn Medeiros Rn TAYLOR, MELISSA A, RN Date and Time 12/07/20 10:26:00 12/07/20 11:19:00 Last Modified By: Jazlyn Medeiros Rn Compton, Tracy R, Rn 12/07/20 10:26:11 12/07/20 11:19:07 [facility] IntraOp Communication Audit 12/07/20 11:19:07 Counter Top Maker: [id number] Modifier: [id number] <+> 2 Communication By <+> 2 Date and Time <+> 2 Communication To <+> [address] [facility] IntraOp Counts Verification Entry 1 Procedure Knee Total Joint Replacement(Right) Count Info Count Type Sponge, Sharps Counts Verification Baseline/pre-procedure Sequence Count Results Not Applicable Counts Performed By Count Performed By Nils Patterson, Scrub (Scrub) Tech Count Performed By Jazlyn Medeiros Rn (RN) Last Modified By: Jazlyn Medeiros Rn 12/07/20 08:07:34 [facility] IntraOp Counts Final Entry 1 Procedure Knee Total Joint Replacement(Right) Final Count Info Count Type Sponge, Sharps Counts Verification Skin Closure/end of Sequence procedure Count Results Correct, surgeon notified Counts Performed By Count Performed By Khadra Aguilar, Surgical (Scrub) Pearl Hand Count Performed By YARIEL AVENDANO RN (RN) Last Modified By: Jazlyn Medeiros Rn 12/07/20 11:28:06 [facility] IntraOp Counts Final Audit 12/07/20 11:28:06 Counter Top Maker: [id number] Modifier: [id number] 1 <*> Procedure Knee Total Joint Replacement(Right) 1 <+> Count Performed By (Scrub) [facility] IntraOp Cultures and Spec Summary Entry 1 Cultrures and Specimens Specimen Ordered: Yes Test(s) Routine/Path-Lab Requested/Final Disposition Last Modified By: Jazlyn Medeiros Rn 12/07/20 08:07:51 General Comments: A. RIGHT KNEE BONE AND TISSUE [facility] IntraOp Departure from OR Entry 1 Integumentary Assessment Integumentary WDL Assessment WDL Transfer/Handoff Transfer to PACU Phase I Handoff Method Bedside/Face to face, Phone call Post-op Transport Stretcher/Gurney Via Patient Transport PIERRE RON, Accompanied by SIGNALING PROJECT ENGINEER, RYDER, Jazlyn Medeiros Rn Last Modified By: Jazlyn Medeiros Rn 12/07/20 08:08:01 [facility] IntraOp Dressing and Packing Entry 1 Type Dressing Location OPERATIVE KNEE Wound Dressing Item Occlusive dressing, Skin Closure Glue, Other Applied By AZALIA KAPOOR CSA Other Comments AQUACEL AG, KNEE WRAP, BONE FOAM Last Modified By: Jazlyn Medeiros Rn 12/07/20 08:08:07 [facility] IntraOp Fire Risk Assessment Entry 1 Fire [...] Modified By: Jazlyn Medeiros Rn 12/07/20 09:22:52 [facility] IntraOp General Case Parts Coordinator 1 Case Information OR OR 04 [facility] Case Level 1 Room Verified Yes Wound Class I - Clean Specialty Orthopedic Anesthesia Type General ASA Class 3 Diagnosis Preop Diagnosis RIGHT KNEE OSTEOARTHRITIS Postop Same As Preop Yes Postop Diagnosis RIGHT KNEE OSTEOARTHRITIS Last Modified By: Jazlyn Medeiros Rn 12/07/20 12:05:03 [facility] IntraOp General Case Data Audit 12/07/20 12:05:03 Counter Top Maker: [id number] Modifier: [id number] 1 <*> ASA Class 2 [facility] IntraOp Implant Log Entry 1 Entry 2 Entry 3 Type Implant (Synthetic) Implant (Synthetic) Implant (Synthetic) Implant Log Implant Type Bone Cement Hardware Hardware Tissue Implant Type Implant CEMENT BONE SMPLX PSN ASF MC 10MM VE FEM PERSONA CRU SZ9 Identification [id number] Description Implant Quantity 2 1 1 Implant Site RIGHT KNEE RIGHT KNEE RIGHT KNEE Implant Identification Model Number Implant Identification Serial Number Implant [id number] Identification Lot Number Implant [place]:Lizbeth Gopal:Gopal Us Gopal:Gopal Us Identification Orthopaedics Concrete Form Setter Name: Implant [id number] Identification Catalog Number Implant Size Implant Has an Yes Yes Yes Expiration Date Implant Expiration 05/13/22 03/22/25 01/20/30 Date Wasted Radioactive Material Time Implanted Tissue Implant Continue for Tissue Implant Documentation Tissue Identification Number Graft Prep Per Concrete Form Setter Instructions: Tissue Preparation Method: Reconstitution Solution: Reconstitution Solution Lot Number Reconstitution Solution Expiration Date: Thawing Solution Thawing Solution Lot Number Thawing Solution Expiration Date Preparation Materials, Other Preparation Materials, Other Lot Number Preparation Materials, Other Expiration Date Tissue Prepared/Processed By Concrete Form Setter Paperwork Completed Implant Type Comment Last Modified By: Jazlyn Medeiros Rn Compton, Tracy R, Rn Compton, Tracy R, Rn 12/07/20 11:02:40 12/07/20 11:07:34 12/07/20 11:07:34 Entry 4 Entry 5 Type Implant (Synthetic) Implant (Synthetic) Implant Log Implant Type Hardware Hardware Tissue Implant Type Implant TIB STEM SZ D [id number] PATELLA CEMENTED Identification [id number] Description Implant Quantity 1 1 Implant Site RIGHT KNEE RIGHT KNEE Implant Identification Model Number Implant Identification Serial Number Implant [id number] Identification Lot Number Implant Gopal:Gopal Us Gopal:Gopal Us Identification Concrete Form Setter Name: Implant [id number] Identification Catalog Number Implant Size Implant Has an Yes Yes Expiration Date Implant Expiration 06/30/30 10/11/28 Date Wasted Radioactive Material Time Implanted Tissue Implant Continue for Tissue Implant Documentation Tissue Identification Number Graft Prep Per Concrete Form Setter Instructions: Tissue Preparation Method: Reconstitution Solution: Reconstitution Solution Lot Number Reconstitution Solution Expiration Date: Thawing Solution Thawing Solution Lot Number Thawing Solution Expiration Date Preparation Materials, Other Preparation Materials, Other Lot Number Preparation Materials, Other Expiration Date Tissue Prepared/Processed By Concrete Form Setter Paperwork Completed Implant Type Comment Last Modified By: Jazlyn Medeiros Rn Compton, Tracy R, Rn 12/07/20 11:07:34 12/07/20 11:07:34 [facility] IntraOp Implant Log Audit 12/07/20 11:07:34 Counter Top Maker: [id number] Modifier: [id number] <+> 2 Implant Identification Description <+> 2 Implant Identification Lot Number <+> 2 Implant Identification Concrete Form Setter Name: <+> 2 Implant Expiration Date <+> 2 Implant Site <+> 2 Implant Quantity <+> 2 Implant Identification Catalog Number <+> 2 Implant Type <+> 2 Implant Has an Expiration Date <+> 2 Type <+> 3 Implant Identification Description <+> 3 Implant Identification Lot Number <+> 3 Implant Identification Concrete Form Setter Name: <+> 3 Implant Expiration Date <+> 3 Implant Site <+> 3 Implant Quantity <+> 3 Implant Identification Catalog Number <+> 3 Implant Type <+> 3 Implant Has an Expiration Date <+> 3 Type <+> 4 Implant Identification Description <+> 4 Implant Identification Lot Number <+> 4 Implant Identification Concrete Form Setter Name: <+> 4 Implant Expiration Date <+> 4 Implant Site <+> 4 Implant Quantity <+> 4 Implant Identification Catalog Number <+> 4 Implant Type <+> 4 Implant Has an Expiration Date <+> 4 Type <+> 5 Implant Identification Description <+> 5 Implant Identification Lot Number <+> 5 Implant Identification Concrete Form Setter Name: <+> 5 Implant Expiration Date <+> 5 Implant Site <+> 5 Implant Quantity <+> 5 Implant Identification Catalog Number <+> 5 Implant Type <+> 5 Implant Has an Expiration Date <+> [address] [facility] IntraOp Intraoperative Assessment Entry 1 Handoff Method [...] Modified By: Jazlyn Medeiros Rn 12/07/20 08:08:38 [facility] IntraOp Intraoperative Equipment Entry 1 Type Equipment Equipment Equipment Lsava Suction System ID Number [id number] Setting ON Intraop Monitoring Blood Pressure Non-Invasive BP Device Source Antiembolic Devices Antiembolic Devices Sequential compression device, knee high, Antiembolic hose, knee high Antiembolic Device Left Location Antiembolic Device [id number] ID Number Antiembolic Device SCDS ON AND WORKING Setting PRIOR TO INDUCTION Scopes Photo/Video Documentation Last Modified By: Jazlyn Medeiros Rn 12/07/20 08:09:00 [facility] IntraOp Medication Admin Entry 1 Entry 2 Entry 3 Medication/Irrigant vancomycin 1Gm vial - hydrogen peroxide 16oz ARNOLDO IRR NACL 0.9PCT [id number] - [id number] 2000ML [id number] Combo Med List Time Administered 12/07/20 11:00:00 [...] ACID DR. CLARK KNEE 1000MG/10 ML INJECTION [id number] Combo Med List Time Administered 12/07/20 11:00:00 12/07/20 11:00:00 Route of TOPICAL INJECTION Administration Dose Dose 2 50 Unit of Measure gram ml Volume Administered By MARLEY CLARK KARTHIKEYAN, THARUN, MD-ORT -ORT Procedure Irrigation Irrigant Volume In Irrigant Volume Out Last Modified By: Jazlyn Medeiros Rn Compton, Tracy R, Rn 12/07/20 12:04:48 12/07/20 12:04:48 [facility] IntraOp Medication Admin Audit 12/07/20 12:04:48 Counter Top Maker: [id number] Modifier: [id number] 1 <*> Medication/Irrigant vancomycin 1Gm vial - [id number] 1 <+> Time Administered 2 <*> Medication/Irrigant hydrogen peroxide 16oz - [id number] 4 <*> Medication/Irrigant TRANEXAMIC ACID 1000MG/10 ML [id number] 4 <+> Time Administered <+> 5 Time Administered 12/07/20 10:24:43 Counter Top Maker: [id number] Modifier: [id number] 2 <*> Medication/Irrigant hydrogen peroxide 16oz - [id number] 2 <+> Time Administered 3 <*> Medication/Irrigant ARNOLDO IRR NACL 0.9PCT 2000ML [id number] 3 <+> Time Administered [facility] IntraOp Patient Positioning Entry 1 Procedure Knee [...] Modified By: Jazlyn Medeiros Rn 12/07/20 08:10:49 [facility] IntraOp Sign In Entry 1 Patient, Site, [...] Modified By: Jazlyn Medeiros Rn 12/07/20 08:10:59 [facility] IntraOp Sign Out Entry 1 RN Confirmation [...] Modified By: Jazlyn Medeiros Rn 12/07/20 12:04:06 [facility] IntraOp Sign Out Audit 12/07/20 12:04:06 Counter Top Maker: [id number] Modifier: [id number] <+> 1 RN Sign Out Signature Date/Time [facility] IntraOp Skin Prep Entry 1 Procedure Knee Total Joint Replacement(Right) Prescribed Yes Pre-Surgical Prep Completed Prep Area OPERATIVE THIGH TO TOES CIRCUMFRENTIALLY Intraop Prep Integumentary WDL Assessment WDL Prep Agents Chlorhexidine gluconate/alcohol, Chloraprep, DuraPrep Prep by Jazlyn Medeiros Rn Hair Removal Methods No hair removal performed Last Modified By: Jazlyn Medeiros Rn 12/07/20 08:11:20 [facility] IntraOp Surgical Procedures Entry 1 Procedure Knee Total Joint Replacement Modifiers Right Additional (RT TOTAL KNEE Procedure ARTHROPLASTY) Description Primary Procedure Yes Primary Surgeon MARLEY CLARK MD-ORT Start 12/07/20 10:22:00 Stop 12/07/20 11:34:00 Anesthesia Type General Specialty Orthopedic Wound Class I - Clean Last Modified By: Jazlyn Medeiros Rn 12/07/20 12:04:07 [facility] IntraOp Surgical Procedures Audit 12/07/20 12:04:07 Counter Top Maker: [id number] Modifier: [id number] <+> 1 Stop 12/07/20 11:28:08 Counter Top Maker: [id number] Modifier: [id number] <+> [address] [facility] IntraOp Temp Regulation Devices Entry 1 Temp Regulation Temperature Forced Air Warming Regulation Device device, Warm blankets Temperature 32969 Regulation Device Serial/Unit Number Temperature Upper body Regulation Site Temperature Device ON Setting Temperature PIERRE RON, Regulation Device SIGNALING PROJECT ENGINEER, ORGAN BUILDER Applied by Temperature THERMOREGULATON Regulation Comment MEASURES MONITORED AND ADJUSTED BY ANESTHESIA Last Modified By: Jazlyn Medeiros Rn 12/07/20 08:11:43 [facility] IntraOP Time Out Entry 1 Procedure to [...] Modified By: Jazlyn Medeiros Rn 12/07/20 10:20:59 [facility] IntraOP Time Out Audit 12/07/20 10:20:59 Counter Top Maker: [id number] Modifier: [id number] 1 <+> Time Out Pause Time 1 <*> Procedure to be Performed Knee Total Joint Replacement(Right) 12/07/20 10:15:36 Counter Top Maker: [id number] Modifier: [id number] 1 <*> Procedure to be Performed Knee Total Joint Replacement(Right) [facility] IntraOp Tourniquet Entry 1 Type Pneumatic Serial/Unit Number [id number] Setting 300 mmHg Pheumatic Yes Tourniquet Checked Per Protocol Size 34 inches Placement Thigh, right upper Skin Protection - Yes Padded Under Cuff Applied By Jazlyn Medeiros Rn Removed By AZALIA KAPOOR CSA Times Start Time 12/07/20 10:21:00 Stop Time 12/07/20 11:27:00 Last Modified By: Jazlyn Medeiros Rn 12/07/20 11:27:28 [facility] IntraOp Tourniquet Audit 12/07/20 11:27:28 Counter Top Maker: [id number] Modifier: [id number] <+> 1 Stop Time 12/07/20 10:22:29 Counter Top Maker: [id number] Modifier: [id number] <+> 1 Start Time Case Comments <None> [...]
--- OUTSIDE RECORDS SUMMARY | 2024-09-24 13:32 | XMS_ITS | Encounter Summary ---
Author Organization [employer] ([place], [place], [place], [place]) Address [address] [place] [address] Care Team Providers Care Commissioning Specialist Name Role Phone Unavailable Primary Care Provider Unavailabl e Encounter Details Date Type Department Care Team (Late st Contact Info) Description 12/07/2020 Transcribed Document [facility] Radiology [address] [place] [address] Gisele Quinteros MD [facility] [place] [address] Social History Tobacco Use Types [...] : 1955 Associated Diagnoses: None Author: CINTHIARMARIBETH RUBBER STAMP MAKER Chief Complaint R knee pain Review of [...] Prescribed Nitromist 0.4 mg sublingual spray: 1 [place], SubLINgual, Q5Min, 1 Bottle, 0 Refill(s) Documented [...] mg sublingual spray 0.4 mg = 1 [place], SubLINgual, Q5Min Probiotic Formula oral capsule 2 [...] (diabetes mellitus), type 2 / SNOMED CT 418908113 / Confirmed Stomach cancer / SNOMED CT 290841899 / Confirmed IBS (irritable bowel syndrome) / SNOMED CT 99998193 / Confirmed Hypothyroidism / SNOMED CT 23678422 / Confirmed HTN (hypertension) / SNOMED CT 9124668841 / Confirmed GERD (gastroesophageal reflux disease) / SNOMED CT 252075900 / Confirmed Diverticulitis / SNOMED CT 696274047 / Confirmed At risk for sleep apnea / IMO 32047740 / Confirmed, Active Problems (8) At risk for sleep apnea Diverticulitis DM (diabetes mellitus), type 2 GERD (gastroesophageal reflux disease) HTN (hypertension) Hypothyroidism IBS (irritable bowel syndrome) Stomach cancer osteoarthritis Histories Past Medical History: No active or resolved past medical history items have been selected or recorded. Family History: No family history items have been selected or recorded. Procedure history: Cholecystectomy (27297725). bilateral meniscus repair. Hysterectomy (572304819). stomach cancer. Anal fissure (32759676). Oral surgery (6780901885). Social History Social & Psychosocial Habits Alcohol [...] exam in office notes. Integumentary: Warm, Dry, [place]. Neurologic: Alert, Oriented. Psychiatric: Cooperative, Appropriate mood [...]
--- OUTSIDE RECORDS SUMMARY | 2024-09-24 13:32 | XMS_ITS | Encounter Summary ---
Author Organization [employer] ([place], [place], [place], [place]) Address [address] [place] [address] Care Team Providers Care Phone Specialist Name Role Phone Unavailable Primary Care Provider Unavailabl e Encounter Details Date Type Department Care Team (Late st Contact Info) Description 12/07/2020 Transcribed Document [facility] [place] [facility] Family Medicine [facility] [place] [address] ProviderJason MD [address] [place] [address] Social History Tobacco Use Types [...] - 12/07/2020 8:45 EDT Electronically signed by [facility] Conversion Electrical Assembly Supervisor Cerner at 06/03/2022 8:51 AM CDT documented in this encounter Plan of Treatment Not on file documented as of this encounter Visit Diagnoses Not on filedocumented in this encounter
--- OUTSIDE RECORDS SUMMARY | 2024-09-24 13:32 | XMS_ITS | Encounter Summary ---
Author Organization [employer] ([place], [place], [place], [place]) Address [address] [place] [address] Care Team Providers Care Office Assistant Receptionist Name Role Phone Unavailable Primary Care Provider Unavailabl e Encounter Details Date Type Department Care Team (Late st Contact Info) Description 12/07/2020 Transcribed Document [facility] Family Medicine [facility] [place] [address] ProviderJason MD [address] [place] [address] Social History Tobacco Use Types [...] General Information Comment, OT : LALITA MONTELONGO OTR/Aleajndro - 12/07/2020 14:26 EDT General Status Patient [...] LALITA SCHULZ OTR/Alejandro - 12/07/2020 14:26 EDT Tag Maker Goals, OT Dressing, Lower Body LTG Grid [...]
--- OUTSIDE RECORDS SUMMARY | 2024-09-24 13:32 | XMS_ITS | Encounter Summary ---
Author Organization [employer] ([place], [place], [place], [place]) Address [address] [place] [address] Care Team Providers Care Assessment Nurse Name Role Phone Unavailable Primary Care Provider Unavailabl e Encounter Details Date Type Department Care Team (Late st Contact Info) Description 04/12/2021 Transcribed Document [facility] Family Medicine [facility] [place] [address] ProviderJason MD [address] [place] [address] Social History Tobacco Use Types [...] - Jason ProviderMD - 04/12/2021 9:01 AM PLANER SETUP OPERATOR [facility] Main OR IntraOp Summary Primary Physician: MARLEY CLARK MD-ORT Finalized Date/Time: 04/13/21 15:46:55 Pt. Name: LESLIE MURCIA /Sex: 1955 Female Med Rec #: [id number] Physician: MARLEY CLARK MD-ORT Financial #: [id number] Pt. Type: O Room/Bed: 639/1 Admit/Disch: 04/12/21 06:58:00 - 04/13/21 15:41:00 Institution: [facility] IntraOp Case Attendance Entry 1 Entry 2 Entry 3 Case Attendee MARLEY CLARK BARNES, DEVON, RYDER-ANS CHANELLE WARE MD-ANS MD-ORT Role Performed Surgeon/Proceduralist, AUTOMOBILE AND PROPERTY UNDERWRITER/Nurse Factory Helper Anesthesiologist of First Record Time In 04/12/21 [...] Attendee Renato Soler, Cinthya Joseph, AZALIA DELATORRE, [facility] Tech Role Performed Scrub, First Sewer Maintenance Supervisor, Parts Department Manager, First Time In 04/12/21 08:32:00 04/12/21 08:32:00 [...] Replacement(Left) Replacement(Left) Replacement(Left) Other Attendee kerry VOSS [facility] Superficial Wound Closed By: Last Modified By: Cinthya Easton, Cinthya Trevino, Cinthya Trevino, CHIP 04/12/21 10:22:44 04/12/21 10:22:44 04/12/21 10:47:47 [facility] IntraOp Case Attendance Audit 04/12/21 10:47:47 Pathology Secretary: [id number] Modifier: [id number] <*> Case Attendee AZALIA OTOOLE [facility] 9 <*> Procedure Knee Total Joint Replacement(Left) 04/12/21 10:24:09 Pathology Secretary: [id number] Modifier: [id number] 2 <*> Time Out 04/12/21 10:17:00 2 <*> Procedure Knee Total Joint Replacement(Left) <+> 9 Case Attendee <+> 9 Role Performed <+> 9 Time In <+> 9 Time Out <+> 9 Procedure 04/12/21 10:22:44 Pathology Secretary: [id number] Modifier: [id number] 1 <*> Procedure Knee Total Joint Replacement(Left) [...] Procedure Knee Total Joint Replacement(Left) 04/12/21 10:13:05 Pathology Secretary: [id number] Modifier: [id number] <+> Time Out 6 <*> Procedure Knee Total Joint Replacement(Left) 04/12/21 10:02:58 Pathology Secretary: [id number] Modifier: [id number] 1 <+> Time Out 1 <*> Procedure Knee Total Joint Replacement(Left) 8 <+> Time Out 8 <*> Procedure Knee Total Joint Replacement(Left) 04/12/21 09:40:39 Pathology Secretary: [id number] Modifier: [id number] <*> Procedure Knee Total Joint Replacement(Left) 8 <*> Other Attendee ASYA BALANAGISANTOS DEPUY 04/12/21 09:03:33 Pathology Secretary: [id number] Modifier: [id number] 1 <+> Time In 1 <*> Procedure [...] Procedure Knee Total Joint Replacement(Left) 04/12/21 07:59:05 Pathology Secretary: [id number] Modifier: [id number] <+> 1 Procedure 2 <*> Procedure Knee Total Joint Replacement(Left) 3 <*> Procedure Knee Total Joint Replacement(Left) 4 <*> Procedure Knee Total Joint Replacement(Left) 5 <*> Procedure Knee Total Joint Replacement(Left) 6 <*> Procedure Knee Total Joint Replacement(Left) 7 <*> Procedure Knee Total Joint Replacement(Left) 8 <*> Procedure Knee Total Joint Replacement(Left) 04/12/21 07:50:17 Pathology Secretary: [id number] Modifier: [id number] <*> Case Attendee SEEMA CRENSHAW ST 8 <*> Procedure Knee Total Joint Replacement(Left) 8 <+> Other Attendee [facility] IntraOp Case Times Entry 1 Patient In Room Time 04/12/21 08:32:00 Out Room Time 04/12/21 10:17:00 Anesthesia Start Time 04/12/21 08:32:00 Stop Time 04/12/21 10:17:00 Surgery / Procedure Times Start Time 04/12/21 09:01:00 Stop Time 04/12/21 10:11:00 Last Modified By: Cinthya Easton, CHIP 04/12/21 10:22:43 [facility] IntraOp Case Times Audit 04/12/21 10:22:43 Pathology Secretary: [id number] Modifier: [id number] <+> 1 Out Room Time <+> 1 Stop Time 04/12/21 10:12:54 Pathology Secretary: [id number] Modifier: [id number] <+> 1 Stop Time [facility] IntraOp Cautery Entry 1 ESU Identification Cautery Type Monopolar ESU ID Number [id number] ID Type Hospital Number Cautery Settings Cut Setting 50 Coag Setting 50 ESU Grounding Pad Ground Pad Type Adult Grounding Pad Site Right Lower Abdomen Grounding Pad Cinthya Easton RN Applied By Grounding Pad Site Warm, Dry, Intact Skin Condition Before Cautery Grounding Pad Site Unchanged Skin Condition After Cautery Last Modified By: Cinthya Easton RN 04/12/21 10:05:03 [facility] IntraOp Cautery Audit 04/12/21 10:05:03 Pathology Secretary: [id number] Modifier: [id number] 1 <*> Grounding Pad Site Right thigh [facility] IntraOp Communication Entry 1 Communication To Family/Significant other Comment START Communication By Cinthya Easton RN Date and Time 04/12/21 09:05:00 Last Modified By: Cinthya Easton RN 04/12/21 09:05:52 [facility] IntraOp Counts Verification Entry 1 Procedure Knee Total Joint Replacement(Left) Count Info Count Type Sponge, Sharps Counts Verification Baseline/pre-procedure Sequence Count Results Not Applicable Counts Performed By Count Performed By Renato Soler Scrub (Scrub) Tech Count Performed By Cinthya Easton RN (RN) Last Modified By: Cinthya Easton RN 04/12/21 07:51:06 [facility] IntraOp Counts Final Entry 1 Procedure Knee Total Joint Replacement(Left) Final Count Info Count Type Sponge, Sharps Counts Verification Skin Closure/end of Sequence procedure Counts Performed By Count Performed By Renato Soler Scrub (Scrub) Tech Count Performed By Cinthya Easton RN (RN) Last Modified By: Cinthya Easton RN 04/12/21 09:53:05 [facility] IntraOp Counts Final Audit 04/12/21 09:53:05 Pathology Secretary: [id number] Modifier: [id number] 1 <*> Procedure Knee Total Joint Replacement(Left) 1 <+> Count Performed By (Scrub) 1 <+> Count Performed By (RN) [facility] IntraOp Cultures and Spec Summary Entry 1 Cultrures and Specimens Specimen Ordered: Yes Test(s) Routine/Path-Lab Requested/Final Disposition Last Modified By: Cinthya Easton RN 04/12/21 07:51:21 [facility] IntraOp Departure from OR Entry 1 Integumentary Assessment Integumentary WDL Assessment WDL Transfer/Handoff Transfer to PACU Phase I Handoff Method Bedside/Face to face, Phone call, Online nursing summary Post-op Transport Stretcher/Gurney Via Patient Transport MARY ALICE SHEPARD, Accompanied by RYDER-Rustam DOSS Beckie, RN Last Modified By: Cinthya Easton RN 04/12/21 07:51:49 [facility] IntraOp Dressing and Packing Entry 1 Type Dressing Location OPERATIVE KNEE Wound Dressing Item Occlusive dressing, Skin Closure Glue, Other Applied By AZALIA KAPOOR CSA Other Comments AQUACEL AG, KNEE WRAP, BONE FOAM Last Modified By: Cinthya Easton RN 04/12/21 07:51:59 [facility] IntraOp Fire Risk Assessment Entry 1 [...] Modified By: Cinthya Easton RN 04/12/21 09:00:21 [facility] IntraOp Fire Risk Assessment Audit 04/12/21 09:00:21 Pathology Secretary: [id number] Modifier: [id number] <+> 1 Fire Risk Assessment Complete <+> 1 Fire Risk Assessment Verified Date/Time [facility] IntraOp General Case Research Physician 1 Case Information OR OR 05 [facility] Case Level 1 Room Verified Yes Wound Class 1 - Clean Specialty Orthopedic Anesthesia Type General ASA Class 3 Diagnosis Preop Diagnosis ARTHRITIS LEFT KNEE Postop Same As Preop No Postop Diagnosis SEE MD POST OP NOTE Wound Class Definitions Last Modified By: Cinthya Easton RN 04/12/21 09:01:59 [facility] IntraOp General Case Data Audit 04/12/21 09:01:59 Pathology Secretary: [id number] Modifier: [id number] <+> 1 ASA Class [facility] IntraOp Implant Log Entry 1 Entry 2 Entry 3 Type Implant (Synthetic) Implant (Synthetic) Implant (Synthetic) Implant Log Implant Type Bone Cement Hardware Hardware Tissue Implant Type Implant CEMENT BONE SMPLX PSN FEM CR CMT CCR NRW TIB CEMENTED L Identification [id number] [id number] Description Implant Quantity 2 1 1 Implant Site LEFT KNEE LEFT KNEE LEFT KNEE Implant Identification Model Number Implant Identification Serial Number Implant [id number] Identification Lot Number Implant Lowpoint:Lowpoint Gopal:Gopal Us Gopal:Gopal Us Identification Orthopaedics Certified Prosthetist/Orthotist Name: Implant [id number] Identification Catalog Number Implant Size Implant Has an Yes Yes Yes Expiration Date Implant Expiration 08/12/22 09/27/30 10/26/30 Date Wasted Radioactive Material Time Implanted Tissue Implant Continue for Tissue Implant Documentation Tissue Identification Number Graft Prep Per Certified Prosthetist/Orthotist Instructions: Tissue Preparation Method: Reconstitution Solution: Reconstitution Solution Lot Number Reconstitution Solution Expiration Date: Thawing Solution Thawing Solution Lot Number Thawing Solution Expiration Date Preparation Materials, Other Preparation Materials, Other Lot Number Preparation Materials, Other Expiration Date Tissue Prepared/Processed By Certified Prosthetist/Orthotist Paperwork Completed Implant Type Comment Last Modified By: Cinthya Easton, Cinthya Trevino, Cinthya Trevino RN 04/12/21 09:25:16 04/12/21 09:46:17 04/12/21 09:46:17 Entry 4 Entry 5 Type Implant (Synthetic) Implant (Synthetic) Implant Log Implant Type Hardware Hardware Tissue Implant Type Implant PSN ASF MC 14MM VE PATELLA CEMENTED Identification [id number] [facility]-[id number] Description Implant Quantity 1 1 Implant Site LEFT KNEE LEFT KNEE Implant Identification Model Number Implant Identification Serial Number Implant [id number] Identification Lot Number Implant Gopal:Gopal Us Gopal:Gopal Identification Certified Prosthetist/Orthotist Name: Implant [id number] Identification Catalog Number Implant Size Implant Has an Yes Yes Expiration Date Implant Expiration 11/09/25 02/22/29 Date Wasted Radioactive Material Time Implanted Tissue Implant Continue for Tissue Implant Documentation Tissue Identification Number Graft Prep Per Certified Prosthetist/Orthotist Instructions: Tissue Preparation Method: Reconstitution Solution: Reconstitution Solution Lot Number Reconstitution Solution Expiration Date: Thawing Solution Thawing Solution Lot Number Thawing Solution Expiration Date Preparation Materials, Other Preparation Materials, Other Lot Number Preparation Materials, Other Expiration Date Tissue Prepared/Processed By Certified Prosthetist/Orthotist Paperwork Completed Implant Type Comment Last Modified By: Cinthya Easton RN Versteeg, Beckie, RN 04/12/21 09:46:17 04/12/21 09:50:25 [facility] IntraOp Implant Log Audit 04/12/21 09:50:25 Pathology Secretary: [id number] Modifier: [id number] <+> 5 Implant Identification Description <+> 5 Implant Identification Lot Number <+> 5 Implant Identification Certified Prosthetist/Orthotist Name: <+> 5 Implant Expiration Date <+> 5 Implant Site <+> 5 Implant Quantity <+> 5 Implant Identification Catalog Number <+> 5 Implant Type <+> 5 Implant Has an Expiration Date <+> 5 Type 04/12/21 09:46:17 Pathology Secretary: [id number] Modifier: [id number] <+> 2 Implant Identification Description <+> 2 Implant Identification Lot Number <+> 2 Implant Identification Certified Prosthetist/Orthotist Name: <+> 2 Implant Expiration Date <+> 2 Implant Identification Catalog Number <+> 3 Implant Identification Description <+> 3 Implant Identification Lot Number <+> 3 Implant Identification Certified Prosthetist/Orthotist Name: <+> 3 Implant Expiration Date <+> 3 Implant Identification Catalog Number <+> 4 Implant Identification Description <+> 4 Implant Identification Lot Number <+> 4 Implant Identification Certified Prosthetist/Orthotist Name: <+> 4 Implant Expiration Date <+> 4 Implant Identification Catalog Number 04/12/21 09:25:16 Pathology Secretary: [id number] Modifier: [id number] <+> Implant Identification Description 1 <+> Implant Identification Lot Number 1 <+> Implant Identification Certified Prosthetist/Orthotist Name: 1 <+> Implant Expiration Date 1 <*> Implant Quantity 1 1 <+> Implant Identification Catalog Number 1 <*> Implant Type Hardware [facility] IntraOp Intraoperative Assessment Entry 1 Handoff [...] Modified By: Cinthya Easton RN 04/12/21 07:53:02 [facility] IntraOp Intraoperative Equipment Entry 1 Type Equipment Equipment Equipment Waste Management System ID Number [id number] Setting ON Intraop Monitoring Antiembolic Devices Antiembolic Devices Sequential compression device, knee high, Antiembolic hose, knee high Antiembolic Device Bilateral Location Antiembolic Device [id number] ID Number Antiembolic Device SCDS ON AND WORKING Setting PRIOR TO INDUCTION Scopes Photo/Video Documentation Last Modified By: Cinthya Easton RN 04/12/21 07:53:42 [facility] IntraOp Medication Admin Entry 1 Entry [...] vancomycin 1Gm vial - hydrogen peroxide 16oz [id number] - [id number] Combo Med List Time Administered Route of AT SURGICAL SITE IRRIGATION Administration Dose Dose 1 Unit of Measure gram Volume Administered By MARLEY CLARK KARTHIKEYAN, THARUN, MD-ORJessica ESQUEDAORJessica Procedure Irrigation Irrigant Volume In Irrigant Volume Out Last Modified By: Cinthya Easton RN Versteeg, Beckie, RN 04/12/21 07:57:02 04/12/21 07:57:02 [facility] IntraOp Medication Admin Audit 04/12/21 07:57:02 Pathology Secretary: [id number] Modifier: [id number] 1 <*> Medication/Irrigant TRANEXAMIC ACID 1GM 1 [...] 4 <*> Medication/Irrigant vancomycin 1Gm vial - [id number] 4 <*> Route of Administration AT SURGICAL SITE 4 <*> Administered By MARLEY CLARK MD-ORT 4 <*> Dose 1 4 <*> Unit of Measure gram 5 <*> Medication/Irrigant hydrogen peroxide 16oz - [id number] 5 <*> Route of Administration IRRIGATION 5 [...] Modified By: Cinthya Easton RN 04/12/21 07:53:49 [facility] IntraOp Sign Out Entry 1 RN [...] Modified By: Cinthya Easton RN 04/12/21 10:22:59 [facility] IntraOp Sign Out Audit 04/12/21 10:22:59 Pathology Secretary: [id number] Modifier: [id number] <+> 1 RN Sign Out Signature Date/Time [facility] IntraOp Skin Prep Entry 1 Procedure Knee Total Joint Replacement(Left) Prescribed Yes Pre-Surgical Prep Completed Prep Area OPERATIVE THIGH TO TOES CIRCUMFRENTIALLY Intraop Prep Integumentary WDL Assessment WDL Prep Agents Chlorhexidine gluconate/alcohol, Chloraprep, DuraPrep Prep by Cinthya Easton RN Hair Removal Methods No hair removal performed Last Modified By: Cinthya Easton RN 04/12/21 07:58:06 [facility] IntraOp Surgical Procedures Entry 1 Procedure Knee Total Joint Replacement Modifiers Left Additional LEFT TOTAL KNEE Procedure ARTHROPLASTY Description Primary Procedure Yes Primary Surgeon MARLEY CLARK MD-ORT Start 04/12/21 09:01:00 Stop 04/12/21 10:11:00 Anesthesia Type General Specialty Orthopedic Wound Class 1 - Clean Last Modified By: Cinthya Easton RN 04/12/21 10:13:08 [facility] IntraOp Surgical Procedures Audit 04/12/21 10:13:08 Pathology Secretary: [id number] Modifier: [id number] <+> 1 Stop 04/12/21 10:03:39 Pathology Secretary: [id number] Modifier: [id number] <+> 1 Start [facility] IntraOp Temp Regulation Devices Entry 1 Temp Regulation Temperature Forced Air Warming Regulation Device device, Warm blankets Temperature 44694 Regulation Device Serial/Unit Number Temperature Upper body Regulation Site Temperature DREA, MARY ALICE, AUTOMOBILE AND PROPERTY UNDERWRITER-ANS Regulation Device Applied by Temperature THERMOREGULATON Regulation Comment MEASURES MONITORED AND ADJUSTED BY ANESTHESIA Last Modified By: Cinthya Easton RN 04/12/21 07:58:33 [facility] IntraOP Time Out Entry 1 Procedure [...] Modified By: Cinthya Easton RN 04/12/21 09:06:30 [facility] IntraOP Time Out Audit 04/12/21 09:06:30 Pathology Secretary: [id number] Modifier: [id number] 1 <+> Beta Shahab Administered 1 <*> Procedure to be Performed Knee Total Joint Replacement(Left) 04/12/21 09:00:12 Pathology Secretary: [id number] Modifier: [id number] 1 <+> Time Out Pause Time 1 <*> Procedure to be Performed Knee Total Joint Replacement(Left) [facility] IntraOp Tourniquet Entry 1 Type Pneumatic Serial/Unit Number [id number] Setting 250 mmHg Pheumatic Yes Tourniquet Checked Per Protocol Skin Protection - Yes Padded Under Cuff Applied By Cinthya Easton RN Removed By AZALIA KAPOOR CSA Refugio Start Time 04/12/21 09:01:00 Stop Time 04/12/21 09:58:00 Total Time 57 calculated manually (Mins) Last Modified By: Cinthya Easton RN 04/12/21 10:03:29 [facility] IntraOp Tourniquet Audit 04/12/21 10:03:29 Pathology Secretary: [id number] Modifier: [id number] <+> 1 Applied By <+> 1 Total Time calculated manually (Mins) <+> 1 Stop Time 04/12/21 09:06:08 Pathology Secretary: [id number] Modifier: [id number] 1 <*> Setting 300 mmHg 1 <+> Start Time Case Comments <None> Finalized By: NAIDA TAYLOR Document Signatures Signed By: Cinthya Easton RN 04/12/21 10:24 Cinthya Easton RN 04/12/21 10:47 NADIA TAYLOR 04/13/21 15:46 Unfinalized History Date/Time Username Reason for Unfinalizing Freetext Reason for Unfinalizing 04/12/21 10:47 [id number] Finish Documentation 04/13/21 15:43 WATTSDR Correct Billing Electronically signed by Ander Mckinney Conversion Inspector Government Property Cerner at 06/03/2022 8:44 AM CDT documented in this encounter Plan of Treatment Not on file documented as of this encounter Visit Diagnoses Not on filedocumented in this encounter
--- OUTSIDE RECORDS SUMMARY | 2024-09-24 13:32 | XMS_ITS | Encounter Summary ---
Author Organization [employer] ([place], [place], [place], [place]) Address [address] [place] [address] Care Team Providers Care Electromagnet Crane Operator Name Role Phone Unavailable Primary Care Provider Unavailabl e Encounter Details Date Type Department Care Team (Late st Contact Info) Description 04/12/2021 Transcribed Document [place] [facility] [place] [address] ProviderJason MD [address] [place] [address] Social History Tobacco Use Types Packs/Day [...] - Historical ProviderMD - 04/12/2021 3:00 PM RATE EXAMINER Treatment Intervention, OT Entered On: 04/13/2021 12:43 [...] ENRIQUE NAQVI OTR/L - 04/13/2021 12:37 EST Usp Goals, OT Dressing, Lower Body LTG Grid [...] arrival. Pt provided ADL AE including a projection printer, leg client manager, and long handled sponge. Pt deferred additional [...] ENRIQUE NAQVI OTR/L - 04/13/2021 12:37 EST Electronically signed by Ander Mckinney Conversion Forming Machine Upkeep Mechanic Helper Huiner at 06/03/2022 8:43 AM CDT documented in this encounter Plan of Treatment Not on file documented as of this encounter Visit Diagnoses Not on filedocumented in this encounter
--- OUTSIDE RECORDS SUMMARY | 2024-09-24 13:32 | XMS_ITS | Encounter Summary ---
Author Organization [employer] ([place], [place], [place], [place]) Address [address] [place] [address] Care Team Providers Care Physicist Cryogenics Name Role Phone Unavailable Primary Care Provider Unavailabl e Encounter Details Date Type Department Care Team (Late st Contact Info) Description 12/07/2020 Transcribed Document [facility] [place] Family Medicine [address] [place] [address] ProviderJason MD [address] [place], [place] [id number] Social History Tobacco Use Types Packs/Day Years [...] 12/07/2020 7:53 EDT by Dano Max PATIENT SENIOR HEALTH PHYSICS TECHNICIAN Phone Call for Consults Consult Phone Call/Page Attempt : Other: Completed 12/07 Dano Max PATIENT SENIOR HEALTH PHYSICS TECHNICIAN - 12/08/2020 8:11 EDT documented in this encounter Plan of Treatment Not on file documented as of this encounter Visit Diagnoses Not on filedocumented in this encounter
--- OUTSIDE RECORDS SUMMARY | 2024-09-24 13:32 | XMS_ITS | Encounter Summary ---
Author Organization [employer] ([place], [place], [place], [place]) Address [address] [place] [address] Care Team Providers Care Eviscerator Name Role Phone Unavailable Primary Care Provider Unavailabl e Encounter Details Date Type Department Care Team (Late st Contact Info) Description 12/07/2020 Transcribed Document [facility] [facility] [place] [address] ProviderJason MD [address] [place] [address] Social History Tobacco Use Types [...] Jason ProviderMD - 12/07/2020 10:22 AM CDT [facility] Main OR Preop Summary Primary Physician: MARLEY CLARK MD-ORT Finalized Date/Time: 12/07/20 16:21:55 Pt. Name: LESLIE MARTÍNEZ /Sex: 1955 Female Med Rec #: [id number] Physician: MARLEY CLARK MD-ORT Financial #: [id number] Pt. Type: O Room/Bed: 637/1 Admit/Disch: 12/07/20 05:53:00 - Institution: [facility] PreOp Case Times Entry 1 In Preop 12/07/20 07:27:00 Ready for Holding n/a Room Patient Ready for 10/25/21 09:02:00 Surgery Patient Out of Preop 12/07/20 09:40:00 Patient Out of n/a Holding Room Last Modified By: Maryuri Jackson RN 12/07/20 16:21:52 [facility] PreOp Case Times Audit 12/07/20 16:21:52 Battery Installer: CONY Modifier: [id number] <+> 1 Patient Out of Preop 12/07/20 09:09:47 Battery Installer: CONY Modifier: CONY <+> 1 Patient Ready for Surgery Finalized By: Maryuri Jackson, RN Document Signatures Signed By: Maryuri Jackson RN 12/07/20 16:21 Electronically signed by Faye [facility] Conversion Vehicle Calibration Engineer Cerner at 06/03/2022 8:52 AM CDT documented in this encounter Plan of Treatment Not on file documented as of this encounter Visit Diagnoses Not on filedocumented in this encounter
--- OUTSIDE RECORDS SUMMARY | 2024-09-24 13:32 | XMS_ITS | Encounter Summary ---
Author Organization [employer] ([place], [place], [place], [place]) Address [address] [place] [address] Care Team Providers Care Concrete Stone Finisher Name Role Phone Unavailable Primary Care Provider Unavailabl e Encounter Details Date Type Department Care Team (Late st Contact Info) Description 12/11/2020 Transcribed Document [facility] [place] Medicine [facility] [place] [address] ProviderJason MD [address] [place] [address] Social History Tobacco Use Types Packs/Day [...] Discharge Disposition : Discharge To Care Management: Home/Residential/Long Term or Self Care -01 Post Visit Phone Call History : First call, Left message Provider Follow-Up Post Discharge : Discharge Follow Up GREG WHITTAKER PA-ORT - 10:15 AM Previously Documented Assisted Patient Stated Goal : No Patient Stated Goal America Burroughs RN-Navigator - 12/11/2020 12:40 EDT Electronically signed by Faye [facility] Conversion Slurry Control Tender Cerner at 06/03/2022 8:43 AM CDT documented in this encounter Plan of Treatment Not on file documented as of this encounter Visit Diagnoses Not on filedocumented in this encounter
--- OUTSIDE RECORDS SUMMARY | 2024-09-24 13:32 | XMS_ITS | Encounter Summary ---
Author Organization [employer] ([place], [place], [place], [place]) Address [address] [place] [address] Care Team Providers Care Peanut Blancher Name Role Phone Unavailable Primary Care Provider Unavailabl e Encounter Details Date Type Department Care Team (Late st Contact Info) Description 03/03/2021 Transcribed Document [facility] [place] [facility] [place] [address] ProviderJason MD [facility] [place] [place] [address] Social History Tobacco Use Types [...] - Jason ProviderMD - 03/03/2021 12:[address] MECHANICAL ENGINEER Orthopedic Nurse Navigator Entered On: 03/03/2021 12:50 EST Performed On: 03/03/2021 12:48 EST by EDUIN SUAZO RN-Ortho Nurse Navigator Orthopedic Nurse Navigator Assessment Attended Joint Academy : Yes Joint AcademyType : Online Joint Academy Date : 11/12/2020 EDT Joint Optometrist President/Practice Owner Name : Anticipated Discharge Plan : Outpatient PT Anticipated Discharge Plan Comment : Pt confirmed appt for 03/25 at 1030. She would like the same plan as with her RTKA in October, d/c home after overnight stay. to assist at home. OPT from [facility] OPT. EDUIN SUAZO RN-Ortho Nurse Navigator - 03/03/2021 12:48 EST Electronically signed by Faye [facility] Conversion Green Building Engineer Cerner at 06/03/2022 8:50 AM CDT documented in this encounter Plan of Treatment Not on file documented as of this encounter Visit Diagnoses Not on filedocumented in this encounter
--- OUTSIDE RECORDS SUMMARY | 2024-09-24 13:32 | XMS_ITS | Encounter Summary ---
Author Organization [employer] ([place], [place], [place], [place]) Address [address] [place] [address] Care Team Providers Care Moss Bleacher Name Role Phone Unavailable Primary Care Provider Unavailabl e Encounter Details Date Type Department Care Team (Late st Contact Info) Description 04/12/2021 Transcribed Document [facility] [place] [facility] [place] [address] ProviderJason MD [address] [place] [address] Social History Tobacco Use Types [...] - Historical ProviderMD - 04/12/2021 2:00 PM GENERAL EDUCATION INSTRUCTOR Pain Assessment Entered On: 04/12/2021 13:17 EST [...]
--- OUTSIDE RECORDS SUMMARY | 2024-09-24 13:32 | XMS_ITS | Encounter Summary ---
[facility] Address [address] [place] [id number] Care Team Providers Care Tightener Name Role Phone Ziyad Salomon MD Primary Care Provider + [phone] Encounter Details Date Type Department Care Team (Latest Contact Info) Description 09/09/2024 Travel Social History Tobacco Use Types Packs/Day Years [...] 12:45 PM EDT Office Visit [facility] END[facility] [address] [place] [address] Kal Davila PA-C [address] [place] [address] 10/21/2024 1:30 PM EDT Office Visit [facility] CARD[facility] [address] [facility] [address] [place] [address] Sabas Trinidad MD [address] [facility] [address] [place] [address] 11/27/2024 2:00 PM EDT Appointment [facility] [address] [place] [address] documented as of this encounter Visit Diagnoses Not on filedocumented in this encounter Care Teams Tightener Relationship Specialty Start Date End Date Ziyad Salomon MD [address] [facility] [address] [place] [address] PCP - General Adolescent Medicine 10/25/16 documented as of this encounter
--- OUTSIDE RECORDS SUMMARY | 2024-09-24 13:32 | XMS_ITS | Encounter Summary ---
Author Organization [employer] ([place], [place], [place], [place]) Address [address] [place] [address] Care Team Providers Care Airline Attendant Name Role Phone Unavailable Primary Care Provider Unavailabl e Encounter Details Date Type Department Care Team (Late st Contact Info) Description 03/24/2021 Transcribed Document [facility] [place] [facility] [place] [address] ProviderJason MD [address] [place] [address] Social History Tobacco Use Types Packs/Day [...] - Jason ProviderMD - 03/24/2021 3:47 PM PAYROLL AND BENEFITS COORDINATOR PAT Adult Entered On: 03/24/2021 15:58 EST [...] Source : Measured Height Entry Format : [place] Height, Feet : 5 ft(Converted to: 152 cm, 60 Inch) Height, Inches : 3 Inch(Converted to: 0 ft 3 Inch, 7.62 cm) Clinical Height : 160.02 cm Weight Source : Standing scale Weight Entry Format : [place] Clinical Dosing Weight : 102.73 kg Weight, Pounds : 226 lb Body Surface Area (BSA) : 2.04 m2 Body Mass Index : 40.1 kg/m2 (>HHI) [place] Body Weight : 52 kg MINERVA OTOOLE RN - 03/25/2021 12:30 EST Health Histories Smoking Status : Never (less than 100 in lifetime; none in last 30 days) Smokeless Tobacco Status : Never Implant/Device Type, Compressor Operator Portable and Model : right knee replaced STORMY [...] LOS SANTOS RN - 03/24/2021 15:47 EST Lamar Suicide Severity Rating Scale (C-SSRS) CSSRS Past [...] Obtained From : Patient Primary Language : Kosovan Preferred Communication Mode : Verbal Communication Barrier : None Child Protective Investigator Needed : No Clinical Trials Participant *Q [...] 03/24/2021 15:47 EST Electronically signed by Faye, [facility] Conversion Morning Caregiver Cerner at 06/03/2022 8:51 AM CDT documented in this encounter Plan of Treatment Not on file documented as of this encounter Visit Diagnoses Not on filedocumented in this encounter
--- OUTSIDE RECORDS SUMMARY | 2024-09-24 13:32 | XMS_ITS | Encounter Summary ---
Author Organization [employer] ([place], [place], [place], [place]) Address [address] [place] [address] Care Team Providers Care Coding Clerk Name Role Phone Unavailable Primary Care Provider Unavailabl e Encounter Details Date Type Department Care Team (Late st Contact Info) Description 04/09/2021 Transcribed Document [facility] [place] [address] [place] [address] ProviderJason MD [address] [place] [address] Social History Tobacco Use Types [...] - Jason ProviderMD - 04/09/2021 2:17 PM DUMPCART DRIVER UM Authorization Entered On: 04/09/2021 14:18 EST Performed On: 04/09/2021 14:17 EST by ROSSY ALEX, Training Program Assistant Primary Insurance Authorization Authorization and Policy Numbers : Insurance 1 Health Plan: ANTHEM HMOPPO Policy Number: [id number] Authorization Number: Insurance 2 Health Plan: MEDICARE Policy Number: [id number] Authorization Number: Insurance Primary Name : Lux [id number] Authorization Status-Primary : No precert required Authorized Service Begin Date-Primary : 04/12/2021 EST Observation Authorization Nbr-Primary : per STAR NPR Authorization Comments-Primary : pt iliana for OP total knee replacement on 04/12/21: per STAR NPR for Carl Historical Authorization Comments-Primary : No Authorization Comments Found ROSSY ALEX, Training Program Assistant - 04/09/2021 14:17 EST Secondary Insurance Authorization Authorization and Policy Numbers : Insurance 1 Health Plan: ANTHEM HMOPPO Policy Number: [id number] Authorization Number: Insurance 2 Health Plan: MEDICARE Policy Number: [id number] Authorization Number: Insurance Secondary Name : Medicare Authorized Service Begin Date-Secondary : 04/12/2021 EST Historical Authorization Comments-Secondary : No Authorization Comments Found ROSSY ALEX, Training Program Assistant - 04/09/2021 14:17 EST documented in this encounter Plan of Treatment Not on file documented as of this encounter Visit Diagnoses Not on filedocumented in this encounter
--- OUTSIDE RECORDS SUMMARY | 2024-09-24 13:32 | XMS_ITS | Encounter Summary ---
Author Organization [employer] ([place], [place], [place], [place]) Address [address] [place] [address] Care Team Providers Care Battery Plate Remover Name Role Phone Unavailable Primary Care Provider Unavailabl e Encounter Details Date Type Department Care Team (Late st Contact Info) Description 12/07/2020 Transcribed Document [facility] [place] [facility] [place] [address] ProviderJason MD [address] [place] [address] Social History Tobacco Use Types [...] Joint Academy Date : 11/12/2020 EDT Joint Scale Reclamation Tender Name : , Moisés Type of Surgery : Total Knee Replacement, Right Anticipated Discharge Plan : Outpatient PT Anticipated Discharge Plan Comment : Pt plans to d/c home tomorrow with the help of her and son. She would like OPT immediately at [facility] OPT, an appt was made for 12/09 [...]
--- OUTSIDE RECORDS SUMMARY | 2024-09-24 13:33 | XMS_ITS | Encounter Summary ---
Author Organization [employer] ([place], [place], [place], [place]) Address [address] [place] [address] Care Team Providers Care Organizational Consultant Name Role Phone Unavailable Primary Care Provider Unavailabl e Encounter Details Date Type Department Care Team (Late st Contact Info) Description 04/12/2021 Transcribed Document [facility] [place] [facility] [place] [address] ProviderJason MD [address] [place] [id number] Social History Tobacco Use Types Packs/Day Years [...] - Jason ProviderMD - 04/12/2021 10:47 AM MEDICARE CONTACT SPECIALIST Orthopedic Nurse Navigator Entered On: 04/12/2021 10:49 EST Performed On: 04/12/2021 10:47 EST by EDUIN SUAZO RN-Ortho Nurse Navigator Orthopedic Nurse Navigator Assessment Attended Joint Academy : Yes Joint AcademyType : Online Joint Academy Date : 03/17/2021 EST Joint Cardiology Consultant Name : , Moisés and son Type of Surgery : Total Knee Replacement, Left Anticipated Discharge Plan : Outpatient PT Anticipated Discharge Plan Comment : Pt plans to d/c home tomorrow with the help of her as she did with RTKA in November. She would like OPT at [facility] OPT as before as well. An appt was made for 04/14 at 11:00. SUAZO, EDUIN, RN-Ortho Nurse Navigator - 04/12/2021 10:47 EST Electronically signed by Interface, [facility] Conversion Set O Type Operator Cerner at 06/03/2022 8:50 AM CDT documented in this encounter Plan of Treatment Not on file documented as of this encounter Visit Diagnoses Not on filedocumented in this encounter
--- OUTSIDE RECORDS SUMMARY | 2024-09-24 13:33 | XMS_ITS | Encounter Summary ---
[facility] Address [address] [place] [id number] Care Team Providers Care Meal Temperer Name Role Phone Ziyad Salomon MD Primary Care Provider + [phone] Encounter Details Date Type Department Care Team (Latest Contact Info) Description 07/26/2024 Travel Social History Tobacco Use Types Packs/Day [...] 09/25/2024 12:45 PM EDT Office Visit [facility] ENDOCR[facility] [address] [place] [address] Kal Davila PA-C [address] [place] [address] 10/21/2024 1:30 PM EDT Office Visit [facility] C[facility] [address] [facility] [address] [place] [address] Sabas Trinidad MD [address] [facility] [address] [place] [address] 11/27/2024 2:00 PM EDT Appointment [facility] C[facility] [address] [place] [address] documented as of this encounter Visit Diagnoses Not on filedocumented in this encounter Care Teams Meal Temperer Relationship Specialty Start Date End Date Ziyad Salomon MD [address] [facility] [address] [place] [address] PCP - General Adolescent Medicine 10/25/16 documented as of this encounter
--- OUTSIDE RECORDS SUMMARY | 2024-09-24 13:33 | XMS_ITS | Encounter Summary ---
Author Organization [employer] ([place], [place], [place], [place]) Address [address] [place] [address] Care Team Providers Care Conference Director Name Role Phone Unavailable Primary Care Provider Unavailabl e Encounter Details Date Type Department Care Team (Late st Contact Info) Description 04/12/2021 Transcribed Document [facility] [place] [facility] [place] [address] ProviderJason MD [address] [place] [address] Social History Tobacco Use Types [...] - Jason ProviderMD - 04/12/2021 10:46 AM MARGARINE CHURN OPERATOR Pain Assessment Entered On: 04/12/2021 11:51 EST [...]
--- OUTSIDE RECORDS SUMMARY | 2024-09-24 13:33 | XMS_ITS | Encounter Summary ---
Author Organization [employer] ([place], [place], [place], [place]) Address [address] [place] [address] Care Team Providers Care Kitchen Operator Name Role Phone Unavailable Primary Care Provider Unavailabl e Encounter Details Date Type Department Care Team (Late st Contact Info) Description 04/13/2021 Transcribed Document [facility] [place] [facility] [place] [address] ProviderJason MD [address] [place] [address] Social History Tobacco Use Types Packs/Day [...] - Historical ProviderMD - 04/13/2021 12:05 PM TRAFFIC WORKER Discharge Summary, PT Entered On: 04/13/2021 12:05 [...] KISHA RAYGOZA, PT - 04/13/2021 12:05 EST Electronically signed by Ander Mckinney Conversion Supervisor Special Education Cerner at 06/03/2022 8:52 AM CDT documented in this encounter Plan of Treatment Not on file documented as of this encounter Visit Diagnoses Not on filedocumented in this encounter
--- OUTSIDE RECORDS SUMMARY | 2024-09-24 13:33 | XMS_ITS | Encounter Summary ---
Author Organization [employer] ([place], [place], [place], [place]) Address [address] [place] [address] Care Team Providers Care Lead Recreation Assistant Name Role Phone Unavailable Primary Care Provider Unavailabl e Encounter Details Date Type Department Care Team (Late st Contact Info) Description 04/13/2021 Transcribed Document [facility] [place] [facility] [place] [address] ProviderJason MD [facility] [place] [id number] Social History Tobacco Use Types Packs/Day Years [...] - Historical ProviderMD - 04/13/2021 1:42 PM SENIOR ELECTRICAL PROJECT MANAGER Nursing Discharge Summary Entered On: 04/13/2021 13:45 EST Performed On: 04/13/2021 13:42 EST by Comfort Reinoso RN-[facility] Discharge Documentation Patient Disposition, General : Discharge Discharge Instructions Reviewed With, Opportunity For Questions Given : Patient, Spouse Patient Education Completed : Yes Teaching Method : Explanation, Printed materials Teaching Evaluation : Verbalizes understanding Education Comment : room secured for teaching, spouse present, consented to teach. instructed on procedure, medication, follow up appointment Comfort Reinoso RN-[facility] - 04/13/2021 13:42 EST Electronically signed by Faye [facility] Conversion Fringing Machine Operator Cerner at 06/03/2022 8:46 AM CDT documented in this encounter Plan of Treatment Not on file documented as of this encounter Visit Diagnoses Not on filedocumented in this encounter
--- OUTSIDE RECORDS SUMMARY | 2024-09-24 13:33 | XMS_ITS | Encounter Summary ---
Author Organization [employer] ([place], [place], [place], [place]) Address [address] [place] [address] Care Team Providers Care Journalism Intern Name Role Phone Unavailable Primary Care Provider Unavailabl e Encounter Details Date Type Department Care Team (Late st Contact Info) Description 04/13/2021 Transcribed Document [facility] [place] Family Medicine [facility] [place] [address] ProviderJason MD [address] [place] [address] Social History Tobacco Use Types Packs/Day [...] Jason Jason MD - 04/13/2021 3:00 PM FOREMAN SHIPPING DEPARTMENT Patient: LESLIE MARTÍNEZ Age: 65 years Sex: [...] (diabetes mellitus), type 2 / SNOMED CT 202763733 / Confirmed Stomach cancer / SNOMED CT 732831023 / Confirmed IBS (irritable bowel syndrome) / SNOMED CT 09321650 / Confirmed Hypothyroidism / SNOMED CT 28481978 / Confirmed HTN (hypertension) / SNOMED CT 5952703266 / Confirmed GERD (gastroesophageal reflux disease) / SNOMED CT 658659324 / Confirmed Diverticulitis / SNOMED CT 194994129 / Confirmed Back pain / SNOMED CT 987085159 / Confirmed At risk for sleep apnea / IMO 02221130 / Confirmed Arthritis / SNOMED CT 4180786 / Confirmed, Active Problems (10) Arthritis At [...] ???on stain ???PT/OT - ok FOR discharge documented in this encounter Plan of Treatment Not on file documented as of this encounter Visit Diagnoses Not on filedocumented in this encounter
--- OUTSIDE RECORDS SUMMARY | 2024-09-24 13:33 | XMS_ITS | Encounter Summary ---
Author Organization [employer] ([place], [place], [place], [place]) Address [address] [place] [address] Care Team Providers Care Agriculture Laborer Name Role Phone Unavailable Primary Care Provider Unavailabl e Encounter Details Date Type Department Care Team (Late st Contact Info) Description 04/12/2021 Transcribed Document [facility] Rad[facility] [address] [place] [address] Gisele Quinteros MD [facility] [place] [address] Social History Tobacco Use Types [...] (diabetes mellitus), type 2 / SNOMED CT 912032710 / Confirmed Stomach cancer / SNOMED CT 612670337 / Confirmed IBS (irritable bowel syndrome) / SNOMED CT 03342098 / Confirmed Hypothyroidism / SNOMED CT 77212981 / Confirmed HTN (hypertension) / SNOMED CT 3781986612 / Confirmed GERD (gastroesophageal reflux disease) / SNOMED CT 003530046 / Confirmed Diverticulitis / SNOMED CT 830482837 / Confirmed Back pain / SNOMED CT 650656994 / Confirmed At risk for sleep apnea / IMO 14425252 / Confirmed Arthritis / SNOMED CT 9102235 / Confirmed, Active Problems (10) Arthritis At risk for sleep apnea Back pain Diverticulitis DM (diabetes mellitus), type 2 GERD (gastroesophageal reflux disease) HTN (hypertension) Hypothyroidism IBS (irritable bowel syndrome) Stomach cancer Histories Past Medical History: No active or resolved past medical history items have been selected or recorded. Family History: No family history items have been selected or recorded. Procedure history: Cholecystectomy (75971841). bilateral meniscus repair. Hysterectomy (727661275). stomach cancer. Anal fissure (15664194). Oral surgery ([id number]). RIGHT KNEE REPLACEMENT. Social History Social & [...] exam in office notes. Integumentary: Warm, Dry, [place]. Neurologic: Alert, Oriented. Psychiatric: Cooperative, Appropriate mood [...]
--- OUTSIDE RECORDS SUMMARY | 2024-09-24 13:33 | XMS_ITS | Encounter Summary ---
Author Organization [employer] ([place], [place], [place], [place]) Address [address] [place] [address] Care Team Providers Care Phone Triage Specialist Name Role Phone Unavailable Primary Care Provider Unavailabl e Encounter Details Date Type Department Care Team (Late st Contact Info) Description 04/12/2021 Transcribed Document [facility] [place] [facility] [place] [address] ProviderJason MD [address] [place] [address] Social History Tobacco Use Types Packs/Day [...] - Jason ProviderMD - 04/12/2021 9:01 AM STORAGE BATTERY INSPECTOR [facility] Main OR Preop Summary Primary Physician: MARLEY CLARK MD-ORT Finalized Date/Time: 04/12/21 14:13:14 Pt. Name: LESLIE MARTÍNEZ /Sex: 1955 Female Med Rec #: [id number] Physician: MARLEY CLARK MD-ORT Financial #: [id number] Pt. Type: O Room/Bed: 639/1 Admit/Disch: 04/12/21 06:58:00 - Institution: [facility] PreOp Case Times Entry 1 In Preop 04/12/21 06:35:00 Ready for Holding n/a Room Patient Ready for 04/12/21 07:49:00 Surgery Patient Out of Preop 04/12/21 08:31:00 Patient Out of n/a Holding Room Last Modified By: Marisol Hernández Rn 04/12/21 14:13:13 [facility] PreOp Case Times Audit 04/12/21 14:13:13 Braille Translator: LILIYA Modifier: MFWARD <+> 1 Patient Out of Preop 04/12/21 07:49:59 Braille Translator: CONY Modifier: MFWARD <+> 1 Patient Ready for Surgery Finalized By: Marisol Hernández Rn Document Signatures Signed By: Marisol Hernández Rn 04/12/21 14:13 documented in this encounter Plan of Treatment Not on file documented as of this encounter Visit Diagnoses Not on filedocumented in this encounter
--- OUTSIDE RECORDS SUMMARY | 2024-09-24 13:33 | XMS_ITS | Encounter Summary ---
Author Organization [employer] ([place], [place], [place], [place]) Address [address] [place] [address] Care Team Providers Care Concrete Saw Operator Name Role Phone Unavailable Primary Care Provider Unavailabl e Encounter Details Date Type Department Care Team (Late st Contact Info) Description 04/12/2021 Transcribed Document [facility] [place] [facility] [place] [address] ProviderJason MD [address] [place] [id number] Social History Tobacco Use Types Packs/Day Years [...] - Historical ProviderMD - 04/12/2021 11:47 AM LIQUID SUGAR FORTIFIER Meds to Bed Enrollment Entered On: 04/13/2021 [...]
--- OUTSIDE RECORDS SUMMARY | 2024-09-24 13:33 | XMS_ITS | Encounter Summary ---
Author Organization [employer] ([place], [place], [place], [place]) Address [address] [place] [address] Care Team Providers Care Drupal Php Developer Name Role Phone Unavailable Primary Care Provider Unavailabl e Encounter Details Date Type Department Care Team (Late st Contact Info) Description 04/12/2021 Transcribed Document [facility] [place] [facility] [place] [address] ProviderJason MD [address] [place], [...] - Jason ProviderMD - 04/12/2021 12:23 PM MANAGER CHEMISTRY Pain Assessment Entered On: 04/12/2021 13:17 EST [...]
--- OUTSIDE RECORDS SUMMARY | 2024-09-24 13:33 | XMS_ITS | Encounter Summary ---
Author Organization [employer] ([place], [place], [place], [place]) Address [address] [place] [address] Care Team Providers Care Engineer Station Mainline Name Role Phone Unavailable Primary Care Provider Unavailabl e Encounter Details Date Type Department Care Team (Late st Contact Info) Description 04/12/2021 Transcribed Document [facility] [place] [facility] [place] [address] ProviderJason MD [address] [place] [address] Social History Tobacco Use Types [...] - Jason ProviderMD - 04/12/2021 7:40 AM APPLICATION PACKAGING CONSULTANT Peripheral Nerve Block Entered On: 04/12/2021 7:41 [...] 04/12/2021 7:40 EST Electronically signed by Faye [facility] Conversion Wool Dyer Cerner at 06/03/2022 8:54 AM CDT documented in this encounter Plan of Treatment Not on file documented as of this encounter Visit Diagnoses Not on filedocumented in this encounter
--- OUTSIDE RECORDS SUMMARY | 2024-09-24 13:33 | XMS_ITS | Encounter Summary ---
Author Organization [employer] ([place], [place], [place], [place]) Address [address] [place] [address] Care Team Providers Care Resource Room Special Education Teacher Name Role Phone Unavailable Primary Care Provider Unavailabl e Encounter Details Date Type Department Care Team (Late st Contact Info) Description 04/12/2021 Transcribed Document [facility] [place] [facility] [address] ProviderJason MD [address] [place] [address] Social History Tobacco Use Types [...] - Jason ProviderMD - 04/12/2021 12:23 PM WRAP KNITTING MACHINE OPERATOR Pain Assessment Entered On: 04/13/2021 9:14 EST [...]
--- OUTSIDE RECORDS SUMMARY | 2024-09-24 13:33 | XMS_ITS | Encounter Summary ---
Author Organization [employer] ([place], [place], [place], [place]) Address [address] [place] [address] Care Team Providers Care Network Design Architect Name Role Phone Unavailable Primary Care Provider Unavailabl e Encounter Details Date Type Department Care Team (Late st Contact Info) Description 04/13/2021 Transcribed Document [facility] Radiology 1 [place] [address] Marley Quinteros MD [facility] [place] [address] Social History Tobacco Use Types [...] Date 04/13/2021 Primary Care Provider RAYMUNDO SNYDER (REF)MD-[facility] Discharge Diagnosis Left total knee arthroplasty Procedures [...] Discharge Disposition Home with outpatient physical therapy [facility] Discharge Follow Up AZALIA PALMER PA - 12:30 PM [facility] Outpatient Physical Therapy - 11:00 AM [...] GARCÍA PEREZ MD-RANGEL IVERSON MD ([facility]Op holding area[facility] - medical mgt Current Diet Order Diet, Adult - Ordered -- Start: 04/12/21 14:00:00 EST, Cardiac Diet, 60 gm carbs:[id number] fela, Isolation: Standard Precautions Patient Discharge Summary [...] swelling. Pending Labs In Process SENDOUT REPORT [id number], [id number], RT - Routine, 04/12/21 9:59:00 EST Pathology Tissue Request [id number], [id number], 04/12/21 9:59:00 EST, Collected, RT - Routine, [...]
--- OUTSIDE RECORDS SUMMARY | 2024-09-24 13:33 | XMS_ITS | Encounter Summary ---
Author Organization [employer] ([place], [place], [place], [place]) Address [address] [place] [address] Care Team Providers Care Pattern Hanger Name Role Phone Unavailable Primary Care Provider Unavailabl e Encounter Details Date Type Department Care Team (Late st Contact Info) Description 04/13/2021 Transcribed Document [facility] [place] [facility] [place] [address] ProviderJason MD [address] [place] [address] Social History Tobacco Use Types Packs/Day [...] - Jason ProviderMD - 04/13/2021 1:08 PM PREP COOK [facility] [place] [address] LESLIE MARTÍNEZ :1955 Visit Time:04/12/2021 Your [...] w/ Ulisses Almendarez PA-C in 3 wks ([phone]) Follow Up Instructions: Continue CICI hose for 3 wks if tolerated. Follow Up Instructions: Leave Aquacel dressing in place x 7d, then leave open to air. Follow-Up Appointments Follow Up with AZALIA FARRIS PA When 04/30/2021 12:30 PM EDT Where: [address] [place], [place] [address] [address]- Follow Up with [facility] Outpatient Physical Therapy When 04/14/2021 11:00 AM EST Where: Medications What How Much When Instructions Next Dose acetaminophen-oxyCODONE (Percocet 5/ 325 oral tablet) 1 Tablet(s) Oral Every 4 Hours as needed for as needed for pain Duration: 7 Day(s) not to exceed 5 tablets/ day Pickup at [facility] as needed cefadroxil (cefadroxil 500 mg oral capsule) 1 Capsule(s) Oral Every 12 hours Duration: 7 Day(s) Pickup at [facility] ondansetron (Zofran 4 mg oral tablet) 1 Tablet(s) Oral Every 8 Hours prn n/ v Pickup at [facility] as needed pregabalin (Lyrica 75 mg oral capsule) 1 Capsule(s) Oral Every Day at bedtime Pickup at [facility] bedtime aspirin (aspirin 81 mg oral delayed release tablet) 1 Tablet(s) Oral Two Times A Day Pickup at [facility] bisoprolol 5 Milligram(s) Oral Every Day tomorrow [...] for as needed for constipation [facility] famotidine (famotidine 20 mg oral tablet) [...] Tablet(s) Oral Every Day tomorrow Pharmacy Information [facility]: [address] [place] [address] [address] [place], [place] [id number] [phone] Take your medications faithfully. Do NOT skip [...] of Dr. Quinteros or Dr. Juarez, call [phone] If you are a patient of Dr. Hernandez, call [phone] Nurse Navigator: Jesenia Burroughs Office: [phone]; ; available during regular business hours ondansetron [...] may report side effects to FDA at 6-409-VHY-9985. What other drugs will affect ondansetron? Ondansetron [...] interact with ondansetron. This includes prescription and muax-ygy-julaefw medicines, vitamins, and herbal products. Give a [...] to ensure that the information provided by [employer]. ('Multum') is accurate, up-to-date, and complete, but no guarantee is made to that effect. Drug information contained herein may be time sensitive. Prior[employer] Data information has been compiled for use by healthcare practitioners and consumers in the [place] and therefore [employer] does not warrant that uses outside of the [place] are appropriate, unless specifically indicated otherwise. [employer]'s drug information does not endorse drugs, diagnose patients or recommend therapy. [employer]'s drug information is an informational resource designed [...] effective or appropriate for any given patient. [facility] does not assume any responsibility for any aspect of healthcare administered with the aid of information [facility] provides. The information contained herein is not intended to cover all possible uses, directions, precautions, warnings, drug interactions, allergic reactions, or adverse effects. If you have questions about the drugs you are taking, check with your doctor, nurse or pharmacist. Copyright 1175-3611 [facility]. Version: 13.01. Revision Date: 12/04/2015. cefadroxil (SEF [...] may report side effects to FDA at 7-501-JLK-9631. What other drugs will affect cefadroxil? Other drugs may affect cefadroxil, including prescription and imsp-iud-efcxvht medicines, vitamins, and herbal products. Tell your [...] to ensure that the information provided by [employer] ('Multum') is accurate, up-to-date, and complete, but no guarantee is made to that effect. Drug information contained herein may be time sensitive. [employer] Data information has been compiled for use by healthcare practitioners and consumers in the [place] and therefore [employer] does not warrant that uses outside of the [place] are appropriate, unless specifically indicated otherwise. [employer] drug information does not endorse drugs, diagnose patients or recommend therapy. [employer] drug information is an informational resource designed [...] effective or appropriate for any given patient. [employer] does not assume any responsibility for any aspect of healthcare administered with the aid of information [employer] provides. The information contained herein is not intended to cover all possible uses, directions, precautions, warnings, drug interactions, allergic reactions, or adverse effects. If you have questions about the drugs you are taking, check with your doctor, nurse or pharmacist. Copyright 1620-7242 [employer]. Version: 6.03. Revision Date: 02/17/2020. aspirin (oral) ( pir in) Arthritis Pain, Aspi-Cor, Aspir-Low, Verónica Plus, Durlaza, Ecotrin, Miniprin, Vazalore What is the most important information I should know about aspirin? Aspirin can cause Judie's syndrome, a serious and sometimes fatal condition in children. What is aspirin? Aspirin is a salicylate (ec-MYI-pu-ate) that is used to treat pain, and [...] may report side effects to FDA at 1-915-UJF-2180. What other drugs will affect aspirin? Ask [...] drugs may affect aspirin, including prescription and fofx-hut-nntumvt medicines, vitamins, and herbal products. Not all [...] to ensure that the information provided by [employer]. ('Multum') is accurate, up-to-date, and complete, but no guarantee is made to that effect. Drug information contained herein may be time sensitive. [employer] Data information has been compiled for use by healthcare practitioners and consumers in the [place] and therefore [employer] does not warrant that uses outside of the [place] are appropriate, unless specifically indicated otherwise. [employer] drug information does not endorse drugs, diagnose patients or recommend therapy. Strikingly drug information is an informational resource designed [...] effective or appropriate for any given patient. [employer] does not assume any responsibility for any aspect of healthcare administered with the aid of information [employer] provides. The information contained herein is not intended to cover all possible uses, directions, precautions, warnings, drug interactions, allergic reactions, or adverse effects. If you have questions about the drugs you are taking, check with your doctor, nurse or pharmacist. Copyright 0831-5238 [employer]. Version: 16.03. Revision Date: 08/10/2020. docusate (oral/rectal) [...] may report side effects to FDA at 5-539-FYJ-7352. What other drugs will affect docusate? Other drugs may affect docusate, including prescription and zsjd-mfa-pbiwawl medicines, vitamins, and herbal products. Tell your [...] to ensure that the information provided by [employer]. ('[employer]') is accurate, up-to-date, and complete, but no guarantee is made to that effect. Drug information contained herein may be time sensitive. Prior[employer] Data information has been compiled for use by healthcare practitioners and consumers in the [place] and therefore [employer] does not warrant that uses outside of the [place] are appropriate, unless specifically indicated otherwise. [employer] drug information does not endorse drugs, diagnose patients or recommend therapy. [employer] drug information is an informational resource designed [...] effective or appropriate for any given patient. [employer] does not assume any responsibility for any aspect of healthcare administered with the aid of information [employer] provides. The information contained herein is not intended to cover all possible uses, directions, precautions, warnings, drug interactions, allergic reactions, or adverse effects. If you have questions about the drugs you are taking, check with your doctor, nurse or pharmacist. Copyright 1522-7564 [employer]. Version: 5.01. Revision Date: 03/11/2021. Emergency Awareness [...] Assistance with quitting is available by contacting 5-983-TEHT-NOW. This is a free resource providing counseling, [...] range between ( 0.0 and 7.0 ) Becker #: 0.45 K/uL -- Normal range between ( 0.16 and 1.00 ) Eos #: 0.16 x10(3)/uL -- Normal range between ( 0.00 and 0.80 ) Becker %: 6.6 % -- Normal range between [...] 9.2 and 12.0 ) Patient Name:LESLIE MARTÍNEZ Everardo I have received and understand this information and was given the opportunity to ask questions. Patient/Wellness Coach Name: Patient/Wellness Coach Signature: Relationship to Patient: Clinician/Hospital Wellness Coach Signature: Date: documented in this encounter Plan of Treatment Not on file documented as of this encounter Visit Diagnoses Not on filedocumented in this encounter
--- OUTSIDE RECORDS SUMMARY | 2024-09-24 13:33 | XMS_ITS | Encounter Summary ---
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 SERVICE 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 Evaluation, Occupational Therapy Entered On: 04/12/2021 15:00 [...] Equipment, Walker ADL Equipment : Aid, sock, Senior Librarian, leg, Client Service Consultant, Shoehorn, long handled, Sponge, long handled Walker [...] ENRIQUE NAQVI OTR/Alejandro Pratt 04/12/2021 14:56 EST Hairmasters Manager Goals, OT Dressing, Lower Body LTG Grid [...] Goal Status : Initial goal ENRIQUE NAQVI OTR/Alejnadro Pratt 04/12/2021 14:56 EST Treatment Note Subjective [...] ENRIQUE NAQVI OTR/L - 04/12/2021 14:56 EST documented in this encounter Plan of Treatment Not on file documented as of this encounter Visit Diagnoses Not on filedocumented in this encounter
--- OUTSIDE RECORDS SUMMARY | 2024-09-24 13:33 | XMS_ITS | Encounter Summary ---
Author Organization [employer] ([place], [place], [place], [place]) Address [address] [place] [address] Care Team Providers Care Ocean Freight Agent Name Role Phone Unavailable Primary Care Provider Unavailabl e Encounter Details Date Type Department Care Team (Late st Contact Info) Description 12/08/2020 Transcribed Document [facility] [place] [address] [place] [address] ProviderJason MD [address] [place] [address] Social History Tobacco Use Types [...] Jason MD - 12/08/2020 3:51 PM CDT [facility] [place] [address] LESLIE MARTÍNEZ :1955 Visit Time:12/07/2020 Your Visit Summary Your Care Team Admitting Physician - MARLEY QUINTEROS MD-ORT Attending Physician - MARLEY QUINTEROS MD-ORT Primary Care Physician - RAYMUNDO SNYDER (REF)NINA Referring Physician - MARLEY QUINTEROS MD-ORT Your Diagnosis Unilateral primary osteoarthritis, right knee, Unilateral primary osteoarthritis, right knee These Are Your Goals No qualifying data available. Discharge Vitals Temperature 36.7 ??C Heart Rate (Monitored) 63 Respiratory Rate 18 Blood Pressure 108/63 What to do next Instructions From Your Care Team Discharge Follow Up Instructions: Follow-up w/ Ulisses Almendarez PA-C in 3 wks ([phone]) Follow Up Instructions: Continue CICI hose for [...] PA-ORT When 12/30/2020 10:15 AM EST Where: [facility] [place] [address]- Medications What How Much When Instructions Next Dose acetaminophen-oxyCODONE (Percocet 5/ 325 oral tablet) 1 Tablet(s) Oral Every 4 Hours as needed for as needed for pain Duration: 7 Day(s) not to exceed 5 tablets/ day Pickup at [facility] as needed cefadroxil (cefadroxil 500 mg oral capsule) 1 Capsule(s) Oral Every 12 hours Duration: 7 Day(s) Pickup at [facility] docusate (Colace 100 mg oral capsule) 1 Capsule(s) Oral Two Times A Day as needed for as needed for constipation Pickup at [facility] as needed pregabalin (Lyrica 75 mg oral capsule) 1 Capsule(s) Oral Every Day at bedtime Pickup at [facility] aspirin (aspirin 81 mg oral delayed release tablet) 1 Tablet(s) Oral Two Times A Day Pickup at [facility] atorvastatin (Lipitor 80 mg oral tablet) 1 Tablet(s) Oral Every Day 12/09 nitroglycerin (Nitromist 0.4 mg sublingual spray) 1 [place](s) SubLINgual Every 5 minutes as needed for [...] Hours as needed for Nausea/Vomiting Pickup at [facility] as needed ubiquinone (CoQ10) 1 Tablet(s) Oral Every Day 12/09 Pharmacy Information [facility] [place] [facility]: [address] [place] [address] [address] [place], [place] [phone] Take your medications faithfully. Do NOT skip [...] of Dr. Quinteros or Dr. Juarez, call [phone] If you are a patient of Dr. Hernandez, call [phone] Nurse Navigator: Jesenia Burroughs Office: [phone]; ; available during regular business hours Emergency [...] Assistance with quitting is available by contacting 0-870-GQZRNOW. This is a free resource providing counseling, [...] range between ( 0.0 and 7.0 ) [place] #: 0.57 K/uL -- Normal range between ( 0.16 and 1.00 ) Eos #: 0.26 x10(3)/uL -- Normal range between ( 0.00 and 0.80 ) [place] %: 5.7 % -- Normal range between [...] was given the opportunity to ask questions. Patient/Skelp Processor Name: Patient/Skelp Processor Signature: Relationship to Patient: Clinician/Hospital Skelp Processor Signature: Date: documented in this encounter Plan of Treatment Not on file documented as of this encounter Visit Diagnoses Not on filedocumented in this encounter
--- OUTSIDE RECORDS SUMMARY | 2024-09-24 13:33 | XMS_ITS | Encounter Summary ---
Author Organization [employer] ([place], [place], [place], [place]) Address [address] [place] [address] Care Team Providers Care Impregnator Electrolytic Capacitors Name Role Phone Unavailable Primary Care Provider Unavailabl e Encounter Details Date Type Department Care Team (Late st Contact Info) Description 04/12/[address] 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 Evaluation, Physical Therapy Entered On: 04/12/2021 15:41 [...] 11:53 PT Treatment Instructions Ordered By: MARLEY CALRK MD-ORJessica Active Diagnoses : No Qualifying Diagnoses [...] Oriented x 4 Attention Assessment : Present KISAH RAYGOZA PT - 04/12/2021 15:37 EST [facility] Topics Physical Therapy Education Grid Bed Mobility [...] KISHA RAYGOZA, PT - 04/12/2021 15:37 EST Correction Goals Mobility/Bed Mobility LTG PT Grid [...] KISHA RAYGOZA, PT - 04/12/2021 15:37 EST documented in this encounter Plan of Treatment Not on file documented as of this encounter Visit Diagnoses Not on filedocumented in this encounter
--- OUTSIDE RECORDS SUMMARY | 2024-09-24 13:33 | XMS_ITS | Encounter Summary ---
Author Organization [employer] ([place], [place], [place], [place]) Address [address] [place] [address] Care Team Providers Care Survey Manager Name Role Phone Unavailable Primary Care Provider Unavailabl e Encounter Details Date Type Department Care Team (Late st Contact Info) Description 04/12/2021 Transcribed Document [facility] Radiology 1 [place] [address] Gisele Quinteros MD [facility] [place] [address] Social History Tobacco Use Types [...] Diagnosis Osteoarthritis left knee *Surgeon(s) Surgeon: [place] Water Main Inspector: Moisés Taylor CSA *Procedure Narrative Patient identified [...] and PCL were resected. Next, distal femoral ship's pilot hole was drilled and the intramedullary [...] with a Bovie. Femur was sized. The FuCrossLoopon gap traffic director was placed and tensed. Posterior condyle resection as noted above. Drill holes made through the traffic director and the appropriately sized four-in-one block placed [...]
--- OUTSIDE RECORDS SUMMARY | 2024-09-24 13:33 | XMS_ITS | Encounter Summary ---
Author Organization [employer] ([place], [place], [place], [place]) Address [address] [place] [address] Care Team Providers Care Computer Repair Instructor Name Role Phone Unavailable Primary Care Provider Unavailabl e Encounter Details Date Type Department Care Team (Late st Contact Info) Description 04/12/2021 Transcribed Document [facility] [facility] [place] [address] ProviderJason MD [address] [place] [address] Social History Tobacco Use Types Packs/Day [...] - Jason ProviderMD - 04/12/2021 3:41 PM ELEVATOR ATTENDANT Treatment Intervention, PT Entered On: 04/13/2021 12:05 [...] KISHA RAYGOZA PT - 04/13/2021 12:01 EST [facility] Goals Mobility/Bed Mobility LTG PT Grid Goal [...]
--- OUTSIDE RECORDS SUMMARY | 2024-09-24 13:33 | XMS_ITS | Encounter Summary ---
Author Organization [employer] ([place], [place], [place], [place]) Address [address] [place] [address] Care Team Providers Care Roller Skate Assembler Name Role Phone Unavailable Primary Care Provider Unavailabl e Encounter Details Date Type Department Care Team (Late st Contact Info) Description 04/12/2021 Transcribed Document [facility] [place] [facility] [place] [address] ProviderJason MD [address] [place] [address] Social History Tobacco Use Types [...] - Jason ProviderMD - 04/12/2021 9:01 AM NETWORK SYSTEMS ADMINISTRATOR [facility] PACU Summary Primary Physician: MARLEY CLARK MD-ORT Finalized Date/Time: 04/12/21 12:32:14 Pt. Name: LESLIE MARTÍNEZ /Sex: 1955 Female Med Rec #: [id number] Physician: MARLEY CLARK MD-ORT Financial #: [id number] Pt. Type: O Room/Bed: 639/1 Admit/Disch: 04/12/21 06:58:00 - Institution: [facility] PACU I Case Times Entry 1 In PACU I 04/12/21 10:19:00 Ready for PACU 04/12/21 11:30:00 Discharge Discharge from PACU 04/12/21 11:48:00 I Last Modified By: JENNI GUEVARA RN 04/12/21 12:31:55 [facility] PACU Acuity Entry 1 Start Time 04/12/21 11:30:00 Stop Time 04/12/21 11:48:00 Acuity Level [facility] PACU Acuity I Last Modified By: JENNI GUEVARA RN 04/12/21 12:32:12 Finalized By: JENNI GUEVARA, RN Document Signatures Signed By: JENNI GUEVARA RN 04/12/21 12:32 Electronically signed by [facility] Conversion Research Quality Assurance Specialist Cerner at 06/03/2022 8:45 AM CDT documented in this encounter Plan of Treatment Not on file documented as of this encounter Visit Diagnoses Not on filedocumented in this encounter
--- OUTSIDE RECORDS SUMMARY | 2024-09-24 13:33 | XMS_ITS | Encounter Summary ---
Author Organization [employer] ([place], [place], [place], [place]) Address [address] [place] [address] Care Team Providers Care C D Stripper Name Role Phone Unavailable Primary Care Provider Unavailabl e Encounter Details Date Type Department Care Team (Late st Contact Info) Description 04/12/2021 Transcribed Document [facility] [place] [address] [place] [address] ProviderJason MD [address] [place] [id number] Social History Tobacco Use Types Packs/Day Years [...] - Historical ProviderMD - 04/12/2021 5:00 PM FRUIT EXPRESS AGENT Chart Check - Review Order Profile Entered [...]
--- OUTSIDE RECORDS SUMMARY | 2024-09-24 13:33 | XMS_ITS | Encounter Summary ---
Author Organization [employer] ([place], [place], [place], [place]) Address [address] [place] [address] Care Team Providers Care Assistant Produce Manager Name Role Phone Unavailable Primary Care Provider Unavailabl e Encounter Details Date Type Department Care Team (Late st Contact Info) Description 12/07/2020 Transcribed Document [facility] [place] [address] ProviderJason MD [address] [place] [address] Social History Tobacco Use Types [...] Conversion Note - Historical ProviderMD - 12/07/2020 12:37 PM CDT Pain [...]
--- OUTSIDE RECORDS SUMMARY | 2024-09-24 13:33 | XMS_ITS | Encounter Summary ---
Author Organization [employer] ([place], [place], [place], [place]) Address [address] [place] [address] Care Team Providers Care Admissions Supervisor Name Role Phone Unavailable Primary Care Provider Unavailabl e Encounter Details Date Type Department Care Team (Late st Contact Info) Description 04/12/2021 Transcribed Document [facility] [place] Medicine [address] [place] [address] ProviderJason MD [address] [place] [id number] Social History Tobacco Use Types Packs/Day Years [...] - Jason ProviderMD - 04/12/2021 8:08 AM RICE CLEANING MACHINE TENDER Spiritual Care Short Form Entered On: 04/12/2021 8:25 EST Performed On: 04/12/2021 8:08 EST by ASYA CUELLO General Information, Spiritual Care Spiritual Care Referred by : Patient Reason for Visit : Referral/Consult Ministry Provided to : Patient, Family/Significant other Intervention/Comment/Summary Points : Provided pre-surgery visit and prayer with patient and . Mandaen Preference : Yarsani, Gurpreet ASYA CUELLO - 04/12/2021 8:24 EST documented in this encounter Plan of Treatment Not on file documented as of this encounter Visit Diagnoses Not on filedocumented in this encounter
--- OUTSIDE RECORDS SUMMARY | 2024-09-24 13:33 | XMS_ITS | Encounter Summary ---
Author Organization [employer] ([place], [place], [place], [place]) Address [address] [place] [address] Care Team Providers Care Dye Padder Operator Name Role Phone Unavailable Primary Care Provider Unavailabl e Encounter Details Date Type Department Care Team (Late st Contact Info) Description 04/13/2021 Transcribed Document [facility] Family Medicine [address] [place] [address] ProviderJason MD [address] [place] [address] Social History Tobacco Use Types [...] - Historical ProviderMD - 04/13/2021 10:18 AM LIFE INSURANCE UNDERWRITER Stroke/Warfarin Instructions Entered On: 04/13/2021 10:18 EST Performed On: 04/13/2021 10:18 EST by Comfort Reinoso RN-[employer] Stroke/Warfarin Instructions Stroke/TIA Discharge Ins : N/A Warfarin Discharge Ins : N/A Comfort Reinoso RN-[employer] - 04/13/2021 10:18 EST Education Topics: Anticoagulant Education Anticoagulant : Anticoagulant other than warfarin Compliance Issues *Q : Verbalizes understanding Diet *Q : Verbalizes understanding Adverse drug reactions/interactions *Q : Verbalizes understanding Action/Interaction with Other Drugs : Verbalizes understanding Follow-up care/monitoring *Q : Verbalizes understanding Follow-up Care Details : Physician's office/clinic Comfort Reinoso RN-[employer] - 04/13/2021 10:18 EST Electronically signed by Faye, [facility] Conversion Executive Coordinator Cerner at 06/03/2022 8:44 AM CDT documented in this encounter Plan of Treatment Not on file documented as of this encounter Visit Diagnoses Not on filedocumented in this encounter
--- OUTSIDE RECORDS SUMMARY | 2024-09-24 13:33 | XMS_ITS | Encounter Summary ---
Author Organization [employer] ([place], [place], [place], [place]) Address [address] [place] [address] Care Team Providers Care Roll Cutter Name Role Phone Unavailable Primary Care Provider Unavailabl e Encounter Details Date Type Department Care Team (Late st Contact Info) Description 04/12/2021 Transcribed Document [facility] Family Medicine [facility] [place] [address] ProviderJason MD [facility] [place] [id number] Social History Tobacco Use Types Packs/Day Years [...] - Historical ProviderMD - 04/12/2021 6:57 AM SIMPLEX PRINTER INSTALLER Admission History, Adult Entered On: 04/12/2021 12:14 [...] Mode : Verbal Communication Barrier : None Photographic Reproduction Technician Needed : No Philly Lagunas RN-PATIENT CARE [...] Scale Risk Level : 25-45 Medium Risk [place] Fall Interventions : Adequate lighting, Assistive devices within reach, Bed in low position, Call device within reach, Frequent orientation to call device, Frequent orientation to surroundings, Hourly comfort/safety rounds, Non-slip footwear, Personal items within reach, Reinforced to call for assistance before getting out of bed, Room free of clutter/spills, Upper side-rails up, Wheels locked, Wires/Cords secured Pihlly Lagunas RN-PATIENT CARE BEDSIDE NON-EXEMPT - 04/12/2021 12:11 EST Health Histories Smoking Status : Never (less than 100 in lifetime; none in last 30 days) Smokeless Tobacco Status : Never Implant/Device Type, Textile Clothing And Footwear Mechanic and Model : right knee replaced Philly [...] Source : Measured Height Entry Format : [place] Height, Feet : 5 ft(Converted to: 152 cm, 60 Inch) Height, Inches : 3 Inch(Converted to: 0 ft 3 Inch, 7.62 cm) Clinical Height : 160.02 cm Weight Source : Standing scale Weight Entry Format : [place] Clinical Dosing Weight : 102.73 kg Weight, Pounds : 226 lb Body Surface Area (BSA) : 2.04 m2 Body Mass Index : 40.1 kg/m2 (>HHI) [place] Body Weight : 52 kg Philly Lagunas [...] CARE BEDSIDE NON-EXEMPT - 04/12/2021 12:11 EST [place] Suicide Severity Rating Scale (C-SSRS) CSSRS Past [...] Apnea Risk Level Score : 5 Philly Lagnuas RN-PATIENT CARE [facility] NON-EXEMPT - 04/12/2021 12:11 EST Valuables and Belongings Valuables and Belongings : Clothing Clothing : Common streetwear Clothing Disposition : Bedside Philly Lagunas RN-PATIENT CARE [facility] NON-EXEMPT - 04/12/2021 12:11 EST Electronically signed by Ander Mckinney Conversion Electronic Engineering Technician Cerner at 06/03/2022 8:55 AM CDT documented in this encounter Plan of Treatment Not on file documented as of this encounter Visit Diagnoses Not on filedocumented in this encounter
--- OUTSIDE RECORDS SUMMARY | 2024-09-24 13:33 | XMS_ITS | Encounter Summary ---
Author Organization [employer] ([place], [place], [place], [place]) Address [address] [place] [address] Care Team Providers Care Cargo Service Supervisor Name Role Phone Unavailable Primary Care Provider Unavailabl e Encounter Details Date Type Department Care Team (Late st Contact Info) Description 12/07/2020 Transcribed Document [facility] Radiology [address] [place] [address] Mary Oneal MD [address] [place] [address] Social History Tobacco Use Types Packs/Day [...] is a 65 yo female admitted to [facility] per Dr. Quinteros for a right total [...] mg sublingual spray 0.4 mg = 1 [place], SubLINgual, Q5Min Probiotic Formula oral capsule 2 [...]
--- OUTSIDE RECORDS SUMMARY | 2024-09-24 13:33 | XMS_ITS | Encounter Summary ---
Author Organization [employer] ([place], [place], [place], [place]) Address [address] [place] [address] Care Team Providers Care Radial Drill Press Operator Name Role Phone Unavailable Primary Care Provider Unavailabl e Encounter Details Date Type Department Care Team (Late st Contact Info) Description 04/13/2021 Transcribed Document [facility] [place] Medicine [facility] [place] [address] ProviderJason MD [address] [place] [id number] Social History Tobacco Use Types Packs/Day Years [...] - Historical ProviderMD - 04/13/2021 11:29 AM NETWORK RELAY TESTER UM Authorization Entered On: 04/13/2021 11:29 EST Performed On: 04/13/2021 11:29 EST by Damaris Morse Rn-Utilization Review Primary Insurance Authorization Authorization and Policy Numbers : Insurance 1 Health Plan: ANTHEM HMOPPO Policy Number: [id number] Authorization Number: NPR Insurance 2 Health Plan: MEDICARE Policy Number: [id number] Authorization Number: Insurance Primary Name : Lux [id number] Authorization Status-Primary : No precert required Authorized Service Begin Date-Primary : 04/12/2021 EST Observation Authorization Nbr-Primary : per [facility] NPR Historical Authorization Comments-Primary : Comment 1: pt iliana for OP total knee replacement on Mon04/12/21: per [facility] NPR for [place] (ROSSY ALEX, Business Architect 04/09/2021 14:17) Damaris Morse Rn-Utilization Review - 04/13/2021 11:29 EST Electronically signed by Faye [facility] Conversion Bowling Alley Mechanic Cerner at 06/03/2022 8:42 AM CDT documented in this encounter Plan of Treatment Not on file documented as of this encounter Visit Diagnoses Not on filedocumented in this encounter
--- OUTSIDE RECORDS SUMMARY | 2024-09-24 13:33 | XMS_ITS | Encounter Summary ---
Author Organization [facility] Address [address] [place] [id number] Care Team Providers Care Dovetail Machine Operator Name Role Phone Ziyad Salomon MD Primary Care Provider + [phone] Encounter Details Date Type Department Care Team (Late st Contact Info) Description 09/09/2024 Patient rounding ([facility] only) [facility] [address] [facility] [address] [address] Sabas Trinidad MD [address] [facility] [address] [place] [address] Social History Tobacco Use Types Packs/Day Years [...] PM EDT documented as of this encounter Progress Notes * [place] RegSched Rep - 09/09/2024 2:53 PM EDT My name is Mayi Vega, and I am the Thermal Engineer for [facility] [place]. I would like to thank you for being a loyal patient. If you do not mind, I would like to ask you some questions about your recent visit with us. Please feel free to reply if you wish to provide us with feedback on your visit with our practice. First, could you tell me what went well with your recent visit? Secondly, we are always looking for ways to make our patients' experiences even better. Do you haveany recommendations on what we can do to improve your experience? Finally, overall were you satisfied with your visit with us as a Religion facility? Over the next few days, you will be receiving a Patient Experience Survey. Please consider taking the survey, as it helps Religion in improving their patient care. Thank you for taking the time to answer our questions today. I hope you have a good day. documented in this encounter Plan of Treatment Upcoming Encounters Date Type Department Care Team (Late st Contact Info) Description 09/25/2024 12:45 PM EDT Office Visit [facility] [address] [facility] [address] [place] [address] Kal Davila PA-C [address] [facility] [address] [place] [address] 10/21/2024 1:30 PM EDT Office Visit [facility] [address] [facility] [address] [place] [id number] Sabas Trinidad MD [address] [facility] [address] [place] [address] 11/27/2024 2:00 PM EDT Appointment [facility] [address]rd [place] [address] documented as of this encounter Visit Diagnoses Not on filedocumented in this encounter Care Teams Dovetail Machine Operator Relationship Specialty Start Date End Date Ziyad Salomon MD [address] [facility] [address] [place] [address] PCP - General Adolescent Medicine 10/25/16 documented as of this encounter
--- OUTSIDE RECORDS SUMMARY | 2024-09-24 13:33 | XMS_ITS | Clinical Summary ---
Author Organization [facility] Address [address] [place] [address] Care Team Providers Care Hydraulic Plumber Name Role Phone Ziyad Salmoon MD Primary Care Provider + [phone] Allergies Active Allergy Reactions Criticality Noted Date Comments Other Other (See Comments) Low 07/13/2018 Strawberries, angioedema [place] Hives Low 08/27/2024 Tetracyclines & Related Rash Low 10/26/2016 Medications atorvastatin (LIPITOR) 80 MG tablet TAKE 1 TABLET BY MOUTH AT BEDTIME 1 09/30/19 17 Active meloxicam (MOBIC) 15 MG tablet 1 PO Daily with food. 90 tablet 2 11/17/19 17 Active fexofenadine (JOSÉ MANUEL) 180 MG tablet Take 1 tablet by mouth Daily. Active Ozempic, 2 MG/DOSE, 8 MG/3ML solution pen-injector Inject 2 mg under the skin into the appropriate area as directed 1 (One) Time Per Week. 9 mL 1 04/02/19 25 Active carvedilol (COREG) 25 MG tablet Take 1 tablet by mouth 2 (Two) Times a Day With Meals. 90 tablet 1 04/02/19 25 Active Kerendia 20 MG tablet Take 1 tablet by mouth Daily. 90 tablet 1 05/15/19 25 Active Xarelto 20 MG tablet Take 1 tablet by mouth Daily With Dinner. 90 tablet 1 05/15/19 25 Active propafenone (RYTHMOL) 150 MG tablet Take 1 tablet by mouth Every 8 (Eight) Hours. 270 tablet 1 05/15/19 25 Active valsartan (DIOVAN) 160 MG tablet Take 1 tablet by mouth Daily. Active pilocarpine (SALAGEN) 5 MG tablet Take 1 tablet by mouth 3 (Three) Times a Day. 06/21/19 25 Active Jardiance 10 MG tablet tablet Take 1 tablet by mouth Every Morning. Active bisoprolol (ZEBeta) 10 MG tablet TAKE 1 TABLET BY MOUTH EVERY DAY 1 10/16/19 17 025 Discontinue d(Patient Reported Not Taking) raNITIdine (ZANTAC) 300 MG tablet TAKE 1 TABLET TWICE A DAY 2 09/26/19 17 025 Discontinue d(Patient Reported Not Taking) aspirin 81 MG EC tablet TAKE 1 TABLET BY MOUTH EVERY DAY 2 09/07/19 17 025 Discontinue d(Patient Reported Not Taking) levothyroxine (SYNTHROID, LEVOTHROID) 150 MCG tablet TAKE 1 TABLET BY MOUTH EVERY DAY 2 09/01/19 17 025 Discontinue d(Patient Reported Not Taking) metFORMIN ER (GLUCOPHAGE-XR) 500 MG 24 hr tablet TAKE 1 TABLET BY MOUTH 2 TIMES A DAY 0 08/05/19 17 025 Discontinue d(Patient Reported Not Taking) Biotin 1000 MCG tablet Take 1,000 mcg by mouth 3 (Three) Times a Day. 025 Discontinue d(Patient Reported Not Taking) valsartan-hydroc hlorothiazide (DIOVAN-HCT) 160-12.5 MG per tabletIndication s:Essential hypertension Take 1 tablet by mouth Daily. 90 tablet 1 05/18/19 25 025 Discontinue d(Patient Reported Not Taking) Active Problems Problem Noted Date Diagnosed Date Hyperlipidemia Morbid obesity Hypertension Assessment & Plan (09/09/2024 10:52 AM EDT): Hypertension is stable and controlled Continue current treatment regimen. Blood pressure will be reassessed in 6 months. Hypothyroidism Assessment & Plan (09/09/2024 10:52 AM EDT): Referred to endocrinology. Type 2 diabetes mellitus Assessment & Plan (09/09/2024 10:52 AM EDT): Diabetes is stable. Continue current treatment regimen. Diabetes will be reassessed in 6 months Dyspepsia Encounters Date Type Department Care Team Description 09/09/2024 11:00 AM EDT Office Visit [facility] [address] [facility] [address] [place] [address] Sabas Trinidad MD Type 2 diabetes mellitus with other circulatory complication, without long-term current use of insulin (Primary Dx); Primary hypertension; Paroxysmal A-fib; Hyperlipidemia LDL goal <55; Hypothyroidism, unspecified type; CKD (chronic kidney disease) stage 2, GFR 60-89 ml/min; Syncope and collapse 09/09/2024 Patient rounding ([facility]) [facility] [address] [facility] [address] [place] [address] Sabas Trinidad MD 09/09/2024 Travel 07/26/2024 3:45 PM EDT Ancillary Procedure [facility] [address] [facility] [address] [place] [address] Syncope, unspecified syncope type 07/26/2024 Travel 07/19/2024 Telephone [facility] [address] [facility] [address] [place] [address] Sabas Trinidad MD from Last 3 Months Family History Medical History Relation Name Comments Diabetes Brother Fabrice Sánchez Jr. Hypertension Brother Fabrice Sánchez Jr. Colon cancer Father Fabrice Sánchez Heart attack Father Fabrice Sánchez Heart disease Father Fabrice Sánchez Hyperlipidemia Father Fabrice Sánchez Hypertension Father Fabrice Sánchez carotid artery disease Father Fabrice Sánchez carotid artery disease Maternal Grandfather carotid artery disease Maternal Grandmother Colon cancer Mother Anna Marie Sánchez Diabetes Mother Anna Marie Sánchez Heart attack Mother Anna Marie Valenciaand Heart disease Mother Anna Mariedavy Sánchez Hyperlipidemia Mother Anna Marie Princess Hypertension Mother Anna Marie Princess Obesity Mother Anna Marie Princess carotid artery disease Mother Anna Marie Sánchez Diabetes Sister Relation Name Status Comments Brother Fabrice Sánchez Jr. Father Fabrice Sánchez Maternal Grandfather Maternal Grandmother Mother Anna Marie Sánchez Sister Social History Tobacco Use Types Packs/Day Years [...] Orientation Straight 09/05/2024 4: 59 PM EDT Last Filed Vital Signs Vital Sign Reading Time Taken Comments Blood Pressure 135/77 09/09/2024 10:35 AM EDT Pulse 91 09/09/2024 10:35 AM EDT Temperature 36.5 C (97.7 F) 07/25/2018 2:09 PM EDT Respiratory Rate 18 07/25/2018 2:09 PM EDT Oxygen Saturation 99% 07/25/2018 2:09 PM EDT Inhaled Oxygen Concentration - - Weight 95.7 kg (211 lb) 09/09/2024 10:35 AM EDT Height 160 cm (5' 3 ) 09/09/2024 10:35 AM EDT Body Mass Index 37.38 09/09/2024 10:35 AM EDT Plan of Treatment Upcoming Encounters Date Type Department Care Team (Late st Contact Info) Description 09/25/2024 12:45 PM EDT Office Visit [facility] [address] [place] [address] Kal Davila PA-C [address] [place] [address] 10/21/2024 1:30 PM EDT Office Visit [facility] [address] [facility] [address] [place] [address] Sabas Trinidad MD [address] [facility] [address] [place] [address] 11/27/2024 2:00 PM EDT Appointment [facility] [address]rd [place] [address] Health Maintenance Due Date Last Done Comments DXA SCAN 1955 LIPID PANEL 1955 DIABETIC EYE EXAM 06/06/1963 DIABETIC FOOT EXAM 06/06/1963 URINE MICROALBUMIN-CREATININ E RATIO (uACR) 06/06/1963 MAMMOGRAM 1993 COLOGUARD 1998 COLON CANCER SCREENING 5 CHERYLPercy Joyner SIGMOIDOSCOPY 1998 COLONOSCOPY 1998 COLORECTAL CANCER SCREENING 1998 CT COLONOGRAPHY 1998 FECAL OCCULT BLOOD TEST 1998 FIT Testing (1 year) 1998 ANNUAL WELLNESS VISIT 10/26/2016 HEMOGLOBIN A1C 10/26/2016 HEPATITIS C SCREENING 10/26/2016 Pneumococcal Vaccine 50+ (2 of 2 - PCV) 11/10/2019 11/09/2018 COVID-19 Vaccine (4 - 2023-2 5 season) 2023 11/16/2020, 03/25/2020, 02/26/2020 INFLUENZA VACCINE 11/13/2024 11/20/2023, , 01/06/2020, Additional history exists TDAP/TD VACCINES (2 - Td or Tdap) 02/15/2031 022 ZOSTER VACCINE Completed 07/16/2024, 02/15/2021 Procedures Procedure Name Priority Date/Time Associated Diagnosis Comments SCANNED - LABS Routine 08/27/2024 10:41 AM EDT SCANNED EKG Routine 08/27/2024 10:40 AM EDT SCANNED - LABS 08/17/2024 SCANNED - LABS 08/13/2024 HOLTER MONITOR >7 DAYS UP TO 15 DAYS HOOK-UP & INTERP Routine 07/26/2024 4:21 PM EDT Syncope, unspecified syncope type SCANNED - LABS 07/17/2024 from Last 3 Months Results * LABS SCANNED (08/27/2024 10:41 AM EDT) Only the most recent of4 resultswithin the time period is included. us Historical Provider LAB BLOOD ORDERABLES Mirna l Result * ECG Scan (08/27/2024 10:40 AM EDT) us Historical Provider ECG ORDERABLES Final Res ult * HOLTER MONITOR >7 DAYS UP TO [...] for 13 days 18 hours and 0 days 18 hours. Indications for this exam include syncope. Average HR: 74. Min HR: 50. Max HR: 119. Stephania Ocampo APRN CV CARDIAC SERVICES ORDERABLE S Final Result from Last 3 Months Insurance MEDICARE A & B [facility] Care Teams Hydraulic Plumber Relationship Specialty Start Date End Date Ziyad Salomon MD [facility] [address] [facility] [address] [place] [address] PCP - General Adolescent Medicine 10/25/16
--- OUTSIDE RECORDS SUMMARY | 2024-09-24 13:34 | XMS_ITS | Clinical Summary ---
Author Organization [employer] ([place], [place], [place], [place]) Address [address] [place] [address] Care Team Providers Care Rcp Name Role Phone Unavailable Primary Care Provider [...]
--- OUTSIDE RECORDS SUMMARY | 2024-09-24 13:34 | XMS_ITS | Encounter Summary ---
Author Organization [employer] ([place], [place], [place], [place]) Address [address] [place] [address] Care Team Providers Care Manager Enterprise Name Role Phone Unavailable Primary Care Provider Unavailabl e Encounter Details Date Type Department Care Team (Late st Contact Info) Description 04/13/2021 Transcribed Document [facility] Family Medicine [facility] [place] [address] ProviderJason MD [address] [place] [address] Social History Tobacco Use Types [...] Jason Jason MD - 04/13/2021 10:22 AM UTILITY SERVICE WORKER Patient Education Materials Follows: Discharge Instructions for [...] of Dr. Quinteros or Dr. Juarez, call [phone] If you are a patient of Dr. Hernandez, call [phone] Nurse Navigator: Jesenia Burroughs Office: [phone]; ; available during regular business hours Electronically signed by Faye [facility] Conversion Curriculum Developer Cerner at 06/03/2022 8:52 AM CDT documented in this encounter Plan of Treatment Not on file documented as of this encounter Visit Diagnoses Not on filedocumented in this encounter
--- OUTSIDE RECORDS SUMMARY | 2024-09-24 13:34 | XMS_ITS | Encounter Summary ---
Author Organization [employer] ([place], [place], [place], [place]) Address [address] [place] [address] Care Team Providers Care Hand Painter Name Role Phone Unavailable Primary Care Provider Unavailabl e Encounter Details Date Type Department Care Team (Late st Contact Info) Description 04/13/2021 Transcribed Document [facility] Family Medicine [place] [address] ProviderJason MD [address] [place] [address] Social History Tobacco Use Types Packs/Day [...] - Jason ProviderMD - 04/13/2021 4:56 PM PROVIDER SCRIBE Final Discharge Planning Entered On: 04/13/2021 16:57 EST Performed On: 04/13/2021 16:56 EST by ARMIN TABOR, RN-Senior It Business Analyst Final Discharge Planning Discharge Arrangements : Patient [...] : Yes Discharge To Care Management : Home/Residential/Group Home or Self Care -01 ARMIN TABOR RN-Senior It Business Analyst - 04/13/2021 16:56 EST Final Narrative Note Final Narrative Note : 65yo female pt s/p LTKA. Met with pt at bedside to discuss DCP. Pt has DME at home. Pt chose [facility] at [facility] during [employer]. Referral sent and confirmed 1st appt for 04/14 @ 1100. No other CM needs noted. ARMIN TABOR RN-Senior It Business Analyst - 04/13/2021 16:56 EST documented in this encounter Plan of Treatment Not on file documented as of this encounter Visit Diagnoses Not on filedocumented in this encounter
--- OUTSIDE RECORDS SUMMARY | 2024-09-24 13:34 | XMS_ITS | Clinical Summary ---
Author Organization [facility] Address [address] [place] [address] Care Team Providers Care Physical Fitness Trainer Name Role Phone Ziyad Salomon MD Primary Care Provider + [phone] Allergies Active Allergy Reactions Criticality Noted Date [...] [facility]-Bone Density Scan 1955 [facility]-Depression Screening 1955 [facility]-/Child/Adol SDOH Screenings 1955 [facility]- SDOH Screenings 06/06/1971 [facility]-Adult SDOH Screenings 06/06/1971 CT Colonography 1998 Colonoscopy 1998 FIT-DNA 1998 FIT 1998 FOBT 1998 Sigmoidoscopy 1998 [facility]-Colorectal Cancer Screening 1998 [facility]-Pneumococcal Vaccine: 50 + Years (2 of 2 - PCV) 11/10/2019 11/09/2018 [facility]-Zoster Vaccines (2 of 2) 04/12/2021 02/15/2021 [id number] Vaccine (4 - 2023- season) 2023 11/16/2020, [...] to complete this topic [place] [address] Care Teams Physical Fitness Trainer Relationship Specialty Start Date End Date Ziyad Salomon MD [address] [place] [address] PCP - General 06/26/20
--- OUTSIDE RECORDS SUMMARY | 2024-09-24 13:34 | XMS_ITS | Referral Summary ---
Author Organization [employer] ([place], [place], [place], [place]) Address [address] [place] [address] Care Team Providers Care Product Safety Associate Name Role Phone Unavailable Primary Care Provider [...]
--- NOTE | 2024-09-24 13:45 | CT_ITS ---
FINAL REPORT TECHNIQUE: Thin section axial CT images with coronal and sagittal reformats were performed through the neck. This study was performed with techniques to keep radiation doses as low as reasonably achievable (ALARA). Individualized dose reduction techniques using automated exposure control or adjustment of mA and/or kV according to the patient's size were employed. CLINICAL HISTORY: check for salivary gland blockages COMPARISON: None FINDINGS: No adenopathy or mass lesion is present . Salivary glands are normal. No abnormal calcifications or dilated salivary gland ducts are identified in the region of the salivary glands. Larynx is unremarkable. The thyroid gland is extremely atrophic. IMPRESSION: 1. Normal-appearing parotid and submandibular glands without evidence of abnormal calcification or dilated ducts. 2. The thyroid gland is extremely atrophic. Reviewed, Interpreted and Dictated by Yari Teague MD Transcribed by Ann Correia Authenticated and [facility]
== END 2024-09-24 23:59 | disposition home or self-care (01) ==
LOC: RAD 13:29
PROVIDERS: PCP Internal Medicine Adolescent Medicine; Visit Provider Otolaryngology
DX: E03.4 Atrophy of thyroid (acquired) (principal); K11.9 Disease of salivary gland, unspecified
CPT/HCPCS: 70490

== ENCOUNTER 2024-10-28 09:44 | Outpatient (CLI) | payer MEDICARE, SELFPAY ==
--- OUTSIDE RECORDS SUMMARY | 2024-09-09 11:00 | XMS_ITS | Encounter Summary ---
Author Organization [facility] Address [address] [place] [address] Care Team Providers Care Prune Washer Name Role Phone Ziyad Salomon MD Primary Care Provider + [phone] Reason for Referral * Cardiac (Routine) - Authorized Specialty Diagnoses / Procedures Referred By Contac t Referred To Contact Diagnoses Syncope and collapse Procedures Tilt Table Sabas Trinidad MD [address] [place] [address] [place] [address] Phone: tel: fax: [address] [phone] Phone: tel: Referral ID Status Reason Start Date Expiration Date V isits Requested Visits Authorized [id number] Authorized 09/09/2024 12/09/2025 1 1 Reason for Visit * Reason Comments Hypertension Hyperlipidemia Encounter Details Date Type Department Care Team (Late st Contact Info) Description 09/09/2024 11:00 AM EDT Office Visit [facility] CARDIOLOGY [address] [phone] Sabas Trinidad MD [address] [facility] [address] [place] [address] Type 2 diabetes mellitus with other circulatory complication, without long-term current use of insulin (Primary Dx); Primary hypertension; Paroxysmal A-fib; Hyperlipidemia LDL goal <55; Hypothyroidism, unspecified type; CKD (chronic kidney disease) stage 2, GFR 60-89 ml/min; Syncope and collapse Social History Tobacco Use Types Packs/Day Years Used Date Smoking Tobacco: Never Smokeless Tobacco: Never Tobacco Cessation:Counseling Given: Not Answered Alcohol Use Standard Drinks/Week Comments Yes 0 (1 standard drink = 0.6 oz pure alcohol) Occasionally when we got out to eat Comments No Sex and Gender Information Value Date Recorded Sex Assigned at Female 09/05/2024 4:59 PM EDT Legal Sex Female 10:36 AM EDT Gender Identity Not on file Sexual Orientation Straight 09/05/2024 4: 59 PM EDT documented as of this encounter Last Filed Vital Signs Vital Sign Reading Time Taken Comments Blood Pressure 135/77 09/09/2024 10:35 AM EDT Pulse 91 09/09/2024 10:35 AM EDT Temperature - - Respiratory Rate - - Oxygen Saturation - - Inhaled Oxygen Concentration - - Weight 95.7 kg (211 lb) 09/09/2024 10:35 AM EDT Height 160 cm (5' 3 ) 09/09/2024 10:35 AM EDT Body Mass Index 37.38 09/09/2024 10:35 AM EDT documented in this encounter Progress Notes * Sabas Trinidad MD - 09/09/2024 11:00 AM EDTAssociated Problem(s): Type 2 diabetes mellitus Diabetes is stable. Continue current treatment regimen. Diabetes will be reassessed in 6 months * Sabas Trinidad MD - 09/09/2024 11:00 AM EDTAssociated Problem(s): Hypertension Hypertension is stable and controlled Continue current treatment regimen. Blood pressure will be reassessed in 6 months. * Sabas Trinidad MD - 09/09/2024 11:00 AM EDTAssociated Problem(s): Hypothyroidism Referred to endocrinology. * Jack Quinn RegSched Rep - 09/09/2024 11:00 AM EDTAddended by: JACK QUINN on: 09/09/2024 10:59 AM Modules accepted: Orders * Sabas Trinidad MD - 09/09/2024 11:00 AM EDT Images from the original note were not included. Cardiology Established Patient Note Name: Leslie Martínez : 1955 PCP: Ziyad Salomon MD Date: 09/09/2024 Department: [facility] CARDIOLOG[facility] [address] [place] [id number] Chief Complaint: Here for follow-up Problem list: 1. Paroxysmal atrial fibrillation 2D echo 04/07/2021 EF 60 to 65%, trace MR, trace TR Abdominal aorta duplex 04/27/2023 negative for AAA, no hemodynamically significant lesions SPECT 06/21/2018 SSS 5 SDS 2 ischemia small mild lateral region EF 79% Holter 07/2024-no A-fib, rare PACs and PVCs. Body guardian to 50 bpm. 2. Hypertension benign essential 3. Hyperlipidemia 4. Diabetes mellitus type 2 5-hypothyroidism Subjective History of Present Illness Leslie Martínez is a 69 y.o. female who presents today for routine follow-up. She has history of A-fib and denies chest pain chest discomfort shortness of breath palpitations presyncope or syncope. Labs reviewed as below. A1c is within guidelines-6.5% Stage II CKD-GFR 71 mL/min. She is on an ARB statin Ozempic and Kerendia. She is not a candidate for SGLT2 antagonist due to recurrent urinary tract infections. She has hypothyroidism and is maintained on levothyroxine. This may need to be adjusted based on current labs.-She was referred to endocrinology. No recent lipid profile. Recent syncopal event likely neurocardiogenic, while sitting and sipping wine associated with nausea and no postictal state. Had extensive SINGLETARY in . Current Outpatient Medications Medication Instructions aspirin 81 MG EC tablet TAKE 1 TABLET BY MOUTH EVERY DAY atorvastatin (LIPITOR) 80 MG tablet TAKE 1 TABLET BY MOUTH AT BEDTIME Biotin 1,000 mcg, Oral, 3 Times Daily bisoprolol (ZEBeta) 10 MG tablet TAKE 1 TABLET BY MOUTH EVERY DAY carvedilol (COREG) 25 mg, Oral, 2 Times Daily With Meals fexofenadine (JOSÉ MANUEL) 180 mg, Oral, Daily Kerendia 20 mg, Oral, Daily levothyroxine (SYNTHROID, LEVOTHROID) 150 MCG tablet TAKE 1 TABLET BY MOUTH EVERY DAY meloxicam (MOBIC) 15 MG tablet 1 PO Daily with food. metFORMIN ER (GLUCOPHAGE-XR) 500 MG 24 hr tablet TAKE 1 TABLET BY MOUTH 2 TIMES A DAY Ozempic (2 MG/DOSE) 2 mg, Subcutaneous, Weekly propafenone (RYTHMOL) 150 mg, Oral, Every 8 Hours raNITIdine (ZANTAC) 300 MG tablet TAKE 1 TABLET TWICE A DAY valsartan-hydrochlorothiazide (DIOVAN-HCT) 160-12.5 MG per tablet 1 tablet, Oral, Daily Xarelto 20 mg, Oral, Daily With Dinner Objective Vital Signs: There were no vitals taken for this visit. Estimated body mass index is 44.82 kg/m?? as calculated from the following: Height as of 07/25/18: 160 cm (63 ). Weight as of 07/25/18: 115 kg (253 lb). Neck: Vascular: No carotid bruit or JVD. Cardiovascular: PMI at left midclavicular line. Normal rate. Regular rhythm. Normal S1. Normal S2. Murmurs: There is no murmur. No gallop. No click. No rub. Edema: Peripheral edema absent. Abdominal: General: There is no abdominal bruit. Skin: General: Skin is warm. Feet: Right foot: Skin integrity: Skin integrity normal. No ulcer. Left foot: Skin integrity: No ulcer. Assessment and Plan Assessment & Plan Primary hypertension Hypertension is stable and controlled Continue current treatment regimen. Blood pressure will be reassessed in 6 months. Paroxysmal A-fib [id number] Continue current therapy. Hyperlipidemia LDL goal <55 Needs lipid panel and LP(a) Orders: Hepatic Function Panel; Future High Sensitivity CRP; Future Lipoprotein A (LPA); Future Lipid Panel; Future Type 2 diabetes mellitus with other circulatory complication, without long-term current use of insulin Diabetes is stable. Continue current treatment regimen. Diabetes will be reassessed in 6 months Hypothyroidism, unspecified type Referred to endocrinology. CKD (chronic kidney disease) stage 2, GFR 60-89 ml/min Needs UACR. Orders: Microalbumin / Creatinine Urine Ratio - Urine, Clean Catch; Future Syncope and collapse Likely neurocardiogenic. Holter 08/09/24-SR,rare PAC ,rare PVC. Orders: Tilt Table; Future Follow Up No follow-ups on file. [facility] Cardiology documented in this encounter Plan of Treatment Upcoming Encounters Date Type Department Care Team (Late st Contact Info) Description 10/30/2024 1:45 PM EDT Office Visit [facility] END[facility]CR[facility]OLOGY [address] [facility] [address] [place] [address] Kal Davila PA-C [address] [facility] [address] [place] [address] 11/27/2024 2:00 PM EDT Appointment [facility] CARD[facility] [address] [place] [address] 12/04/2024 1:00 PM EDT Office Visit [facility] CARDIOLOG[facility] [address] [facility] [address] [place] [id number] Sabas Trinidad MD [address] [facility] [address] [place] [address] Scheduled Orders Name Type Priority Associated Diagnoses Orde r Schedule Microalbumin / Creatinine Urine Ratio - Urine, Clean Catch Lab Routine CKD (chronic kidney disease) stage 2, GFR 60-89 ml/min Expected: 10/08/2024 (Approximate), Expires: 09/07/2025 Lipid Panel Lab Routine Hyperlipidemia LDL goal <55 Expected: 10/08/2024 (Approximate), Expires: 09/07/2025 Lipoprotein A (LPA) Lab Routine Hyperlipidemia LDL goal <55 Expected: 10/08/2024 (Approximate), Expires: 09/07/2025 High Sensitivity CRP Lab Routine Hyperlipidemia LDL goal <55 Expected: 10/08/2024 (Approximate), Expires: 09/07/2025 Hepatic Function Panel Lab Routine Hyperlipidemia LDL goal <55 Expected: 09/12/2024 (Approximate), Expires: 09/07/2025 Tilt Table Cardiac Services Routine Syncope and collapse Expected: 09/23/2024, Expires: 09/09/2025 documented as of this encounter Visit Diagnoses Diagnosis Type 2 diabetes mellitus with other circulatory complication, without long-term current use of insulin- Primary Primary hypertension Unspecified essential hypertension Paroxysmal A-fib Hyperlipidemia LDL goal <55 Hypothyroidism, unspecified type CKD (chronic kidney disease) stage 2, GFR 60-89 ml/min Chronic kidney disease, Stage II (mild) Syncope and collapse documented in this encounter Care Teams Prune Washer Relationship Specialty Start Date End Date Ziyad Salomon MD [address] [place] [address] [address] [place] [address] PCP - General Adolescent Medicine 10/25/16 documented as of this encounter
--- OUTSIDE RECORDS SUMMARY | 2024-09-25 12:45 | XMS_ITS | Encounter Summary ---
Author Organization [facility] Address [address] [place] [id number] Care Team Providers Care Insurance Advisor Name Role Phone Ziyad Salomon MD Primary Care Provider + [phone] Reason for Visit * Reason Comments Diabetes * Consultation (Routine) - Closed Specialty Diagnoses / Procedures Referred By Contac t Referred To Contact Endocrinology Diagnoses Type 2 diabetes mellitus with other specified complication Hypothyroidism, unspecified Ziyad Salomon MD [facility] [place] [address] [address] [place] [id number] Phone: tel: fax: [facility] [address] [address] Phone: tel: fax: Referral ID Status Reason Start Date Expiration Date Visits Re quested Visits Authorized [id number] Closed 09/05/2024 12/05/2025 1 1 Encounter Details Date Type Department Care Team (Late st Contact Info) Description 09/25/2024 12:45 PM EDT Office Visit [facility] [address] [address] Kal Davila PA-C [address] [address] Type 2 diabetes mellitus with stage 2 chronic kidney disease, without long-term current use of insulin (Primary Dx); Hypothyroidism, unspecified type; Polyuria; Polydipsia Social History Tobacco Use Types Packs/Day Years [...] Sign Reading Time Taken Comments Blood Pressure 124/70 09/25/2024 12:52 PM EDT Pulse 88 09/25/2024 12:52 PM EDT Temperature - - Respiratory Rate - - Oxygen Saturation - - Inhaled Oxygen Concentration - - Weight 96.6 kg (213 lb) 09/25/2024 12:52 PM EDT Height 160 cm (5' 2.99 ) 09/25/2024 12:52 PM EDT Body Mass Index 37.74 09/25/2024 12:52 PM EDT documented in this encounter Progress Notes * Kal Davila PA-C - 09/25/2024 12:45 PM EDTAssociated Problem(s): Hypothyroidism Last TSH 13.3. Will recheck TFTs today in office. Patient is currently on Synthroid 137 mcg. Patient is not having any swelling in her throat. No palpable thyroid mass on exam. I discussed with patient possible increase in Synthroid dose from 137 to 150 mcg depending on lab work today. Advised patient I will inform her via [employer] in regards to any medication changes based on lab work today. Orders: T3; Future T4, Free; Future TSH; Future * Kal Davila PA-C - 09/25/2024 12:45 PM EDTAssociated Problem(s): Type 2 diabetes mellitus Last A1c 6.5%. Discussed with patient that A1c is well within range. She is tolerating the Ozempic and the Jardiance. Will continue Ozempic and Jardiance at this time. Advised patient if we notice increase in A1c we can add back metformin. Diabetic eye exam was done in February of this year. Diabetic foot exam performed today. Will recheck A1c at next visit. I encouraged the patient she is doing well in regards to diabetes control. Orders: POC Glucose, Blood * Kal Davila PA-C - 09/25/2024 12:45 PM EDT Images from the original note were not included. Office Note Date: 09/25/2024 Patient Name: Leslie Martínez : 1955 Chief Complaint Patient presents with Diabetes History of Present Illness: Leslie Martínez is a 69 y.o. female who presents for Diabetes type 2, hypothyroidism, polyuria, polydipsia. Previous A1c August 2024 6.5. Last thyroid function panel showed free T4 of 4.4, TSH 13.3,T3 33. Patient was referred for management of diabetes, hypothyroidism, and to rule out possible diabetes insipidus. Patient reports over the past 2 years she has had worsening polyuria and polydipsia. Patient reports she urinates at least once every hour. She is also reporting dry mouth for which she is being worked up by ENT for possible salivary gland tissue. Patient denies any recent head injury or brain trauma. Patient did have MRI that showed partially empty sella. Patient has comorbiditie s including CKD, atrial fibrillation, stomach cancer, hyperlipidemia. Patient is currently following with oncology, and [facility] cardiology. Type 2 diabetes: -Patient reports she was never formally diagnosed with type 2 diabetes but she was started on metformin many years ago. Patient reports she was taking off the metformin approximately 2 years ago. Patient has always had A1c's below 6, but reports this recent A1c of 6.5 is the highest that she has had. She is currently on Jardiance and Ozempic without issue. Previous treatments: -Metformin 500 mg once a day. Current treatments: - Ozempic 2 mg weekly - Jardiance 10 MG daily. Does not check blood glucose levels. DM Health Maintenance: Ophtho: 02/2024 Monofilament / Foot exam: 09/25/24 Lipids/Statin: Atorvastatin 80 mg daily DOMINIQUE: Due Aspirin: Xarelto AKIN/ARB: Valsartan 160 mg daily, currently follows with cardiology. Hypothyroidism: Diagnosed 10 years ago. Was recently switched from levothyroxine to Synthroid by primary care. Symptoms include: fatigue, losing hair, palpitations, and sweating TSH: 13.3 on labs in August Current medication: Synthroid 137 Biotin supplement: no Reports taking medication at least 30 minutes apart from foods and hot liquids. Polyuria/polydipsia: First noted 2 years ago. Uses the bathroom at least every 1-2 hours. Has polydipsia, dry mouth. Recent workup for Sjogren's syndrome was negative. Wakes up at night every 1-2 hours to use the bathroom. Denies any TBI. Recent MRI showed partially empty karan. Subjective Diabetic Complications: Eyes: No Kidneys: Yes - CKDcurrently taking Kerendia Feet: No Heart: Yes - history of atrial fibrillationis currently following with [facility] cardiology. Diet and Exercise: Meals per day: 3 Review of Systems: Review of Systems Constitutional: Positive for fatigue. HENT: Positive for dental problem, mouth sores and trouble swallowing. Respiratory: Negative for shortness of breath. Cardiovascular: Negative for chest pain. Endocrine: Positive for polydipsia, polyphagia and polyuria. Musculoskeletal: Positive for myalgias. Neurological: Positive for speech difficulty and headaches. The following portions of the patient's history were reviewed and updated as appropriate: allergies, current medications, past family history, past medical history, past social history, past surgicalhistory, and problem list. Objective Visit Vitals BP 124/70 Pulse 88 Ht 160 cm (62.99 ) Wt 96.6 kg (213 lb) BMI 37.74 kg/m?? Physical Exam: Physical Exam Constitutional: General: She is not in acute distress. Appearance: Normal appearance. HENT: Head: Normocephalic and atraumatic. Cardiovascular: Rate and Rhythm: Normal rate and regular rhythm. Pulses: Dorsalis pedis pulses are 1+ on the right side and 1+ on the left side. Posterior tibial pulses are 1+ on the right side and 1+ on the left side. Heart sounds: No murmur heard. No friction rub. No gallop. Pulmonary: Effort: Pulmonary effort is normal. Breath sounds: No wheezing, rhonchi or rales. Musculoskeletal: Right foot: Normal range of motion. Left foot: Normal range of motion. Feet: Right foot: Protective Sensation: 5 sites tested. 5 sites sensed. Skin integrity: Dry skin present. No ulcer or blister. Toenail Condition: Right toenails are normal. Left foot: Protective Sensation: 5 sites tested. 5 sites sensed. Skin integrity: Dry skin present. No ulcer or blister. Toenail Condition: Left toenails are normal. Comments: Faint pulses noted to bilateral feet. Skin: General: Skin is warm and dry. Capillary Refill: Capillary refill takes less than 2 seconds. Neurological: Mental Status: She is alert and oriented to person, place, and time. Cranial Nerves: No cranial nerve deficit. Psychiatric: Mood and Affect: Mood normal. Behavior: Behavior normal. Labs: CMP Lab Results Component Value Date BUN 24 (H) 06/24/2021 CREATININE 0.84 06/24/2021 EGFRIFNONA >60 06/24/2021 EGFRIFAFRI >60 06/24/2021 BCR 29 06/24/2021 K 3.6 (L) 06/24/2021 CO2 26 06/24/2021 CALCIUM 9.5 06/24/2021 AST 23 06/24/2021 ALT 25 06/24/2021 Assessment / Plan Assessment & Plan: Assessment & Plan Type 2 diabetes mellitus with stage 2 chronic kidney disease, without long-term current use of insulin Last A1c 6.5%. Discussed with patient that A1c is well within range. She is tolerating the Ozempic and the Jardiance. Will continue Ozempic and Jardiance at this time. Advised patient if we notice increase in A1c we can add back metformin. Diabetic eye exam was done in February of this year. Diabetic foot exam performed today. Will recheck A1c at next visit. I encouraged the patient she is doing well in regards to diabetes control. Orders: POC Glucose, Blood Hypothyroidism, unspecified type Last TSH 13.3. Will recheck TFTs today in office. Patient is currently on Synthroid 137 mcg. Patient is not having any swelling in her throat. No palpable thyroid mass on exam. I discussed with patient possible increase in Synthroid dose from 137 to 150 mcg depending on lab work today. Advised patient I will inform her via MyChart in regards to any medication changes based on lab work today. Orders: T3; Future T4, Free; Future TSH; Future Polyuria Discussed possible etiology of polyuria polydipsia including possible diabetes related complications. Will order labs to be done at least 10 hours n.p.o. Patient is to have these labs done locally. Patient was provided urinal today and advised for 24 hours to keep a strict I&O log with all fluids and foods consumed as well as number of episodes urination as well as urine volume. Patient is toreturn in 6 weeks at that point we will reassess and do possible further testing if needed. Patientverbalized understanding of plan today. Orders: Comprehensive Metabolic Panel; Future Osmolality, Serum; Future Osmolality, Urine - Urine, Clean Catch; Future Renal Function Panel; Future Phosphorus Polydipsia See polyuria above Orders: Comprehensive Metabolic Panel; Future Osmolality, Serum; Future Osmolality, Urine - Urine, Clean Catch; Future Renal Function Panel; Future Phosphorus Current Outpatient Medications Medication Instructions atorvastatin (LIPITOR) 80 MG tablet TAKE 1 TABLET BY MOUTH AT BEDTIME carvedilol (COREG) 25 mg, Oral, 2 Times Daily With Meals empagliflozin (JARDIANCE) 10 mg, Oral, Every Morning fexofenadine (JOSÉ MANUEL) 180 mg, Daily Kerendia 20 mg, Oral, Daily levothyroxine (SYNTHROID, LEVOTHROID) 137 mcg, Every Control Valve Technician meloxicam (MOBIC) 15 MG tablet 1 PO Daily with food. Ozempic (2 MG/DOSE) 2 mg, Subcutaneous, Weekly pilocarpine (SALAGEN) 5 mg, 3 Times Daily Probiotic Product (Up4 Probiotics) chewable tablet Chew. propafenone (RYTHMOL) 150 mg, Oral, Every 8 Hours valsartan (DIOVAN) 160 mg, Daily vitamin B-12 (CYANOCOBALAMIN) 1,000 mcg, Daily Xarelto 20 mg, Oral, Daily With Dinner Zinc 50 MG tablet Take by mouth. Return in about 6 weeks (around 11/06/2024) for Recheck. Electronically signed by: Kal Davila PA-C 09/25/2024 documented in this encounter Plan of Treatment Upcoming Encounters Date Type Department Care Team (Late st Contact Info) Description 10/30/2024 1:45 PM EDT Office Visit [facility] [address] [place] [address] Kal Davila PA-C [address] [place] [address] 11/27/2024 2:00 PM EDT Appointment [facility] [address] [place] [address] 12/04/2024 1:00 PM EDT Office Visit [facility] [address] [facility] [address], [place] [id number] Sabas Trinidad MD [address] [place] [address] documented as of this encounter Procedures Procedure Name Priority Date/Time Associated Diagnosis Comments OSMOLALITY, URINE Routine 09/25/2024 1:5 0 PM EDT Polyuria Polydipsia T3 Routine 09/25/2024 1:50 PM EDT Hypothyroidism, unspecified type TSH Routine 09/25/2024 1:50 PM EDT Hypothyroidism, unspecified type T4, FREE Routine 09/25/2024 1:50 PM EDT Hypothyroidism, unspecified type PHOSPHORUS Routine 09/25/2024 1:50 PM EDT Polyuria Polydipsia OSMOLALITY Routine 09/25/2024 1:50 PM EDT Polyuria Polydipsia COMPREHENSIVE METABOLIC PANEL Routine 09/25/2024 1:50 PM EDT Polyuria Polydipsia POCT GLUCOSE, BLD (NON STRIP) Routine 09/25/2024 1:02 PM EDT Type 2 diabetes mellitus with stage 2 chronic kidney disease, without long-term current use of insulin documented in this encounter Results * Phosphorus (09/25/2024 1:50 PM EDT) Phosphorus 3.7 2.5 - 4.5 mg/dL 09/25/2024 8:59 PM EDT [facility] Blood Venipuncture / Unknown 09/25/2024 1:50 PM EDT 09/25/2024 1:50 PM EDT Kal Lola PA-C LAB BLOOD ORDERABLES Final Resu lt [facility]
[address] [place] [address], * Osmolality, Urine - Urine, Clean Catch (09/25/2024 1:50 PM EDT) Osmolality, Urine 479 mOsm/kg 09/26/2024 2:13 AM EDT [facility] Urine Urine specimen obtained by clean catch procedure / Unknown Collection / Unknown 09/25/2024 1:50 PM EDT 09/25/2024 1:50 PM EDT Narrative [facility] - 09/26/2024 2:13 AM EDT Osmo Normal Reference Ranges: Random: 50-1400 mOsm/kg H2O, depending on fluid intake. Random: >850 mOsm/kg H20, after 12 hour fluid restriction. 24 Hour: 300-900 mOsm/kg H2O. Kal Lola PA-C URINE ORDERABLES Final Result Performing Organization Address City/[facility] Co de Phone Number [facility]
[address] [place] [address], * Osmolality, Serum (09/25/2024 1:50 PM EDT) Pathologist [facility] Osmolality 294 280 - 301 mOsm/kg 09/26/2024 2:19 AM EDT [facility] Blood Structure of left upper limb / Unknown Venipuncture / Unknown 09/25/2024 1:50 PM EDT 09/25/2024 1:50 PM EDT Kal Davila PA-C LAB BLOOD ORDERABLES Final Resu lt Performing Organization Address [facility] de Phone Number [facility]
[address] [place] [address], * Comprehensive Metabolic Panel (09/25/2024 1:50 PM EDT) Pathologist [facility] Glucose 79 65 - 99 mg/dL 09/26/2024 2:37 AM EDT [facility] BUN 22.0 8.0 - 23.0 mg/dL 09/26/2024 2:37 AM EDT [facility] Creatinine 0.91 0.57 - 1.00 mg/dL 09/26/2024 2:37 AM EDT [facility] Sodium 136 136 - 145 mmol/L 09/26/2024 2:37 AM EDT [facility] Potassium 4.0 3.5 - 5.2 mmol/L 09/26/2024 2:37 AM EDT [facility] Chloride 103 98 - 107 mmol/L 09/26/2024 2:37 AM EDT [facility] CO2 22.2 22.0 - 29.0 mmol/L 09/26/2024 2:37 AM EDT [facility] Calcium 9.5 8.6 - 10.5 mg/dL 09/26/2024 2:37 AM EDT [facility] Total Protein 6.4 6.0 - 8.5 g/dL 09/26/2024 2:37 AM [facility] Albumin 4.1 3.5 - 5.2 g/dL 09/26/2024 2:37 AM [facility] ALT (SGPT) 18 1 - 33 U/L 09/26/2024 2:37 AM [facility] AST (SGOT) 24 1 - 32 U/L 09/26/2024 2:37 AM [facility] Alkaline Phosphatase 77 39 - 117 U/L 09/26/2024 2:37 AM [facility] Total Bilirubin 0.4 0.0 - 1.2 mg/dL 09/26/2024 2:37 AM [facility] Globulin 2.3 gm/dL 09/26/2024 2:37 AM [facility] A/G Ratio 1.8 g/dL 09/26/2024 2:37 AM [facility] BUN/Creatinine Ratio 24.2 7.0 - 25.0 09/26/2024 2:37 AM [facility] Anion Gap 10.8 5.0 - 15.0 mmol/L 09/26/2024 2:37 AM [facility] eGFR 67.6 >60.0 mL/min/1.7 3 09/26/2024 2:37 AM [facility] Blood Venipuncture / Unknown 09/25/2024 1:50 PM EDT 09/25/2024 1:50 PM [facility] - 09/26/2024 2:37 AM EDT GFR Categories in Chronic Kidney Disease (CKD) GFR Category GFR (mL/min/1.73) Interpretation G1 90 or greater Normal or high (1) G2 60-89 Mild decrease (1) G3a 45-59 Mild to moderate decrease G3b 30-44 Moderate to severe decrease G4 15-29 Severe decrease G5 14 or less Kidney failure (1)In the absence of evidence of kidney disease, neither GFR category G1 or G2 fulfill the criteria for CKD. eGFR calculation 2020 CKD-EPI creatinine equation, which does not include race as a factor [facility] PA-C LAB BLOOD ORDERABLES Final Resu lt Performing Organization Address City/[facility] Co de Phone Number [facility]
[address] [place] [address], * TSH (09/25/2024 1:50 PM EDT) Pathologist [facility] TSH 2.940 0.270 - 4.200 uIU/mL 09/26/2024 2:43 AM EDT [facility] Blood Venipuncture / Unknown 09/25/2024 1:50 PM EDT 09/25/2024 1:50 PM EDT [facility] PA-C LAB BLOOD ORDERABLES Final Resu lt Performing Organization Address [facility] Co de Phone Number [facility]
[address] [place] [address], * T4, Free (09/25/2024 1:50 PM EDT) Pathologist [facility] Free T4 1.67 0.92 - 1.68 ng/dL 09/26/2024 2:43 AM EDT [facility] Blood Venipuncture / Unknown 09/25/2024 1:50 PM EDT 09/25/2024 1:50 PM EDT [facility] LAB BLOOD ORDERABLES Final Resu lt Performing Organization Address [facility] Co de Phone Number [facility]
[address] [place] [address], * T3 (09/25/2024 1:50 PM EDT) Pathologist [facility] T3, Total 118.0 80.0 - 200.0 ng/dl 09/26/2024 2:43 AM EDT [facility] Blood Venipuncture / Unknown 09/25/2024 1:50 PM EDT 09/25/2024 1:50 PM EDT Narrative [facility] - 09/26/2024 2:43 AM EDT Results may be falsely increased if patient taking Biotin. Kal LINK-Florencia LAB BLOOD ORDERABLES Final Resu lt [facility]
[address] [place] [address], * POC Glucose, Blood (09/25/2024 1:02 PM EDT) [facility] Signature Glucose 106 70 - 130 mg/dL Lot Number [id number] Expiration Date 03/18/2025 Blood 09/25/2024 1:02 PM EDT Kal LINK-C POINT OF CARE TEST ORDERABLES F inal Result documented in this encounter Visit Diagnoses Diagnosis Type 2 diabetes mellitus with stage 2 chronic kidney disease, without long-term current use of insulin- Primary Hypothyroidism, unspecified type Polyuria Polydipsia documented in this encounter Care Teams Insurance Advisor Relationship Specialty Start Date End Date Ziyad Salomon MD [facility] [address] [place] [address] PCP - General Adolescent Medicine 10/25/16 documented as of this encounter
--- OUTSIDE RECORDS SUMMARY | 2024-10-28 09:55 | XMS_ITS | Encounter Summary ---
Author Organization [employer] ([place], [place], [place], [place]) Address [address] [place] [address] Care Team Providers Care Qa Test Analyst Name Role Phone Unavailable Primary Care Provider Unavailabl e Encounter Details Date Type Department Care Team (Late st Contact Info) Description 12/08/2020 Transcribed Document [facility] [place] [address] [place] [address] ProviderJason MD [address] [place] [address] Social History Tobacco Use Types [...] On: 12/08/2020 16:14 EDT by ARMIN TABOR RN-Document Imaging Manager Initial Assessment I Previously Documented Living Environment : No qualifying data available. Living Situation : Home Patient Lives With : Spouse Is the Patient a Caregiver at Home? : No Emergency Contact #1 : Moisés Martínez Emergency Contact #1 Emergency Contact #1 Relationship : son Emergency Contact #2 : Moisés Martínze Emergency Contact #2 Emergency Contact #2 Relationship : spouse ARMIN TABOR RN-Document Imaging Manager - 12/08/2020 16:14 EDT Initial Assessment II Sensory and Motor Deficits : None Current Home Treatments and Equipment : None Does the Patient have a Floor to SNF Benefit? : No ARMIN TABOR RN-Document Imaging Manager - 12/08/2020 16:14 EDT Discharge Needs I Anticipated Discharge Date : 12/08/2020 EDT Anticipated Discharge To, CM : Home with family care Current Home Treatment/Equipment : Current Home Treatment/Equipment No qualifying data available. Post Acute/Home Treatments : Bedside commode, Walker Documentation Status Complete : Yes ARMIN TABOR RN-Document Imaging Manager - 12/08/2020 16:14 EDT Discharge Needs II Professional Skilled Services : Professional Skilled Services No qualifying data available. Services and Community Resources : Physical Therapy Needs Assistance with Transportation : No Discharge Options Discussed with Patient : DME, Outpatient services Patient Discharge Goal : Home ARMIN TABOR RN-Document Imaging Manager - 12/08/2020 16:14 EDT Narrative Note Historical Narrative Note : 65yo female pt s/p RTKA. Met with pt and spouse at bedside to discuss DCP. Pt needs FRW and BSC and has no DME provider preference. Obtained them from [employer] and they have been delivered. Pt chose OPT at [facility]. Referral sent and confirmed 1st appt for 12/09 @ 1100. No other CM needs noted. ARMIN TABOR RN-Document Imaging Manager - 12/08/20 16:24:10 Narrative Note : 65yo female pt s/p RTKA. Met with pt and spouse at bedside to discuss DCP. Pt needs FRW and BSC and has no DME provider preference. Obtained them from [employer] and they have been delivered. Pt chose OPT at [facility] during [employer]. Referral sent and confirmed 1st appt for 12/09 @ 1100. No other CM needs noted. ARMIN TABOR RN-Document Imaging Manager - 12/08/2020 16:36 EDT documented in this encounter Plan of Treatment Not on file documented as of this encounter Visit Diagnoses Not on filedocumented in this encounter
--- OUTSIDE RECORDS SUMMARY | 2024-10-28 09:55 | XMS_ITS | Encounter Summary ---
Author Organization [employer] ([place], [place], [place], [place]) Address [address] [place] [address] Care Team Providers Care Senior International Tax Manager Name Role Phone Unavailable Primary Care Provider Unavailabl e Encounter Details Date Type Department Care Team (Late st Contact Info) Description 12/07/2020 Transcribed Document [facility] [place] [address] [place] [address] ProviderJason MD [address] [place], [place] [id number] Social History Tobacco Use Types Packs/Day Years [...] On: 12/07/2020 14:08 EDT by Mikhail Cedillo Java Sql Developer Cert Lead Meds to Bed Enrollment Patient Enrollment Decision: : Yes/enroll in meds to bed program Mikhail Cedillo Java Sql Developer Cert Lead - 12/07/2020 14:49 EDT documented in this encounter Plan of Treatment Not on file documented as of this encounter Visit Diagnoses Not on filedocumented in this encounter
--- OUTSIDE RECORDS SUMMARY | 2024-10-28 09:55 | XMS_ITS | Encounter Summary ---
Author Organization [employer] ([place], [place], [place], [place]) Address [address] [place] [address] Care Team Providers Care Obstetrics Nurse Practitioner Name Role Phone Unavailable Primary Care Provider Unavailabl e Encounter Details Date Type Department Care Team (Late st Contact Info) Description 12/07/2020 Transcribed Document [facility] Family Medicine [facility] [place] [address] ProviderJason MD [address] [place] [address] Social History Tobacco Use Types [...] [employer] Date : 11/12/2020 EDT Joint Guillotine Trimmer Name : , Moisés Type of Surgery : Total Knee Replacement, Right Anticipated Discharge Plan : Outpatient PT Anticipated Discharge Plan Comment : Pt plans to d/c home tomorrow with the help of her and son. She would like OPT immediately at [facility] OPT, an appt was made for 12/09 [...]
--- OUTSIDE RECORDS SUMMARY | 2024-10-28 09:55 | XMS_ITS | Encounter Summary ---
Author Organization [employer] ([place], [place], [place], [place]) Address [address] [place] [address] Care Team Providers Care Razor Grinder Name Role Phone Unavailable Primary Care Provider Unavailabl e Encounter Details Date Type Department Care Team (Late st Contact Info) Description 12/08/2020 Transcribed Document [facility] [address] [place] [address] ProviderJason MD [address] [place] [address] Social History Tobacco Use Types [...] Jason MD - 12/08/2020 3:51 PM CDT [place] [address] LESLIE MARTNÍEZ :1955 Visit Time:12/07/2020 Your Visit Summary Your [...] w/ Ulisses Almendarez PA-C in 3 wks ([phone]) Follow Up Instructions: Continue CICI hose for [...] PA-ORT When 12/30/2020 10:15 AM EST Where: [facility] [place] [address]- Medications What How Much When Instructions Next Dose acetaminophen-oxyCODONE (Percocet 5/ 325 oral tablet) 1 Tablet(s) Oral Every 4 Hours as needed for as needed for pain Duration: 7 Day(s) not to exceed 5 tablets/ day Pickup at [facility] Anytime as needed cefadroxil (cefadroxil 500 mg oral capsule) 1 Capsule(s) Oral Every 12 hours Duration: 7 Day(s) Pickup at [facility] docusate (Colace 100 mg oral capsule) 1 Capsule(s) Oral Two Times A Day as needed for as needed for constipation Pickup at [facility] as needed pregabalin (Lyrica 75 mg oral capsule) 1 Capsule(s) Oral Every Day at bedtime Pickup at [facility] aspirin (aspirin 81 mg oral delayed release tablet) 1 Tablet(s) Oral Two Times A Day Pickup at [facility] atorvastatin (Lipitor 80 mg oral tablet) 1 Tablet(s) Oral Every Day 12/09 nitroglycerin (Nitromist 0.4 mg sublingual spray) 1 Sparks(s) SubLINgual Every 5 minutes as needed for [...] Hours as needed for Nausea/Vomiting Pickup at [facility] as needed ubiquinone (CoQ10) 1 Tablet(s) Oral Every Day 12/09 Pharmacy Information [facility] at [place]: [address] [place] [address] [address] [place], [place] [id number] [phone] Take your medications faithfully. Do NOT skip [...] of Dr. Quinteros or Dr. Juarez, call [phone] If you are a patient of Dr. Hernandez, call [phone] Nurse Navigator: Jesenia Burroughs Office: [phone]; ; available during regular business hours Emergency [...] Assistance with quitting is available by contacting [phone]. This is a free resource providing counseling, [...] range between ( 0.0 and 7.0 ) [place] #: 0.57 K/uL -- Normal range between ( 0.16 and 1.00 ) [place] #: 0.26 x10(3)/uL -- Normal range between ( 0.00 and 0.80 ) [place] %: 5.7 % -- Normal range between [...] was given the opportunity to ask questions. Patient/Envelope Folder Name: Patient/Envelope Folder Signature: Relationship to Patient: Clinician/Hospital Envelope Folder Signature: Date: documented in this encounter Plan of Treatment Not on file documented as of this encounter Visit Diagnoses Not on filedocumented in this encounter
--- OUTSIDE RECORDS SUMMARY | 2024-10-28 09:55 | XMS_ITS | Encounter Summary ---
Author Organization [employer] ([place], [place], [place], [place]) Address [address] [place] [address] Care Team Providers Care Admissions Consultant Name Role Phone Unavailable Primary Care Provider Unavailabl e Encounter Details Date Type Department Care Team (Late st Contact Info) Description 11/13/2020 Transcribed Document [facility] [address] [place] [address] ProviderJason MD [address] [place], [place] [id number] Social History Tobacco Use Types Packs/Day Years [...] from sitting : Moderate 7. Bending to floor/sisal picker an object : None BIRD MICHAELS [...] OCTAVIO OCASIO OTR/Alejandro - 04/27/2021 13:43 EDT Electronically signed by Ander Mckinney Conversion Multi Operation Machine Operator Cerner at 06/03/2022 8:51 AM CDT documented in this encounter Plan of Treatment Not on file documented as of this encounter Visit Diagnoses Not on filedocumented in this encounter
--- OUTSIDE RECORDS SUMMARY | 2024-10-28 09:55 | XMS_ITS | Encounter Summary ---
[facility] Organization [facility] Address [address] [place] [address] Care Team Providers Care Finance Vice President Name Role Phone Ziyad Salomon MD Primary Care Provider + [phone] Encounter Details Date Type Department Care Team [...] Description 10/30/2024 1:45 PM EDT Office Visit [facility] ENDOCRINOLOGY [address] [place] [address] Kal Davila PA-C [address] [place] [address] 11/27/2024 2:00 PM EDT Appointment [facility] [address]rd [place] [address] 12/04/2024 1:00 PM EDT Office Visit [facility] C[facility]IOLOGY [address] [place] [address] Sabas Trinidad MD [address] [facility] [address] [place], [place] [address] documented as of this encounter Visit Diagnoses Not on filedocumented in this encounter Care Teams Finance Vice President Relationship Specialty Start Date End Date Ziyad Salomon MD [address] [address] [address] [place] [address] PCP - General Adolescent Medicine 10/25/16 documented as of this encounter
--- OUTSIDE RECORDS SUMMARY | 2024-10-28 09:55 | XMS_ITS | Encounter Summary ---
Author Organization [employer] ([place], [place], [place], [place]) Address [address] [place] [address] Care Team Providers Care Poem Writer Name Role Phone Unavailable Primary Care Provider Unavailabl e Encounter Details Date Type Department Care Team (Late st Contact Info) Description 12/07/2020 Transcribed Document [facility] Radiology 1 [place] [address] Mary Oneal MD [address] [place] [address] Social History Tobacco Use Types Packs/Day [...] is a 65 yo female admitted to [facility] per Dr. Quinteros for a right total [...] mg sublingual spray 0.4 mg = 1 [place], SubLINgual, Q5Min Probiotic Formula oral capsule 2 [...]
--- OUTSIDE RECORDS SUMMARY | 2024-10-28 09:55 | XMS_ITS | Encounter Summary ---
Author Organization [employer] ([place], [place], [place], [place]) Address [address] [place] [address] Care Team Providers Care Field Representative/Health Education Name Role Phone Unavailable Primary Care Provider Unavailabl e Encounter Details Date Type Department Care Team (Late st Contact Info) Description 12/03/2020 Transcribed Document [facility] [address] [place] [address] ProviderJason MD [address] [place], [place] [id number] Social History Tobacco Use Types Packs/Day Years [...] On: 12/03/2020 14:49 EDT by ROSSY ALEX, Classroom Aide Primary Insurance Authorization Authorization and Policy Numbers : Insurance 1 Health Plan: ANTHEM HMOPPO Policy Number: [id number] Authorization Number: Insurance 2 Health Plan: MEDICARE Policy Number: [id number] Authorization Number: Insurance Primary Name : Lux [id number] Authorization Status-Primary : No precert required Authorized Service Begin Date-Primary : 12/07/2020 EDT Observation Authorization Nbr-Primary : NPR per STAR notes Authorization Comments-Primary : pt is iliana for OP total knee replacement on 12/07/20 [place] NPR per STAR notes Historical Authorization Comments-Primary : No Authorization Comments Found ROSSY ALEX, Classroom Aide - 12/03/2020 14:49 EDT documented in this encounter Plan of Treatment Not on file documented as of this encounter Visit Diagnoses Not on filedocumented in this encounter
--- OUTSIDE RECORDS SUMMARY | 2024-10-28 09:55 | XMS_ITS | Encounter Summary ---
Author Organization [employer] ([place], [place], [place], [place]) Address [address] [place] [address] Care Team Providers Care Member Certification Manager Name Role Phone Unavailable Primary Care Provider Unavailabl e Encounter Details Date Type Department Care Team (Late st Contact Info) Description 12/08/2020 Transcribed Document [facility] Radiology 1 [place] [address] Marley Quinteros MD [facility] [place] [address] Social History Tobacco Use Types [...] Date 12-08-2020 Primary Care Provider RAYMUNDO SNYDER (REF)[facility] Discharge Diagnosis Right total knee arthoplasty Procedures [...] Compartments are soft. Discharge Disposition Home with [place] OPT Discharge Follow Up GREG WHITTAKER PA-ORJessica [...] mg sublingual spray 0.4 mg = 1 [place], SubLINgual, Q5Min Percocet 5/325 oral tablet 1 [...] swelling. Pending Labs In Process SENDOUT REPORT [id number], [id number], RT - Routine, 12/07/20 9:23:00 EDT Pathology Tissue Request [id number], [id number], 12/07/20 9:23:00 EDT, Collected, RT - Routine, [...]
--- OUTSIDE RECORDS SUMMARY | 2024-10-28 09:55 | XMS_ITS | Encounter Summary ---
[facility] Address [address] [place] [address] Care Team Providers Care Staff Reporter Name Role Phone Ziyad Salomon MD Primary Care Provider + [phone] Encounter Details Date Type Department Care Team (Latest Contact Info) Description 09/25/2024 Travel Social History Tobacco Use Types Packs/Day [...] Description 10/30/2024 1:45 PM EDT Office Visit [facility] [address] [place] [address] Kal Davila PA-C [address] [place] [address] 11/27/2024 2:00 PM EDT Appointment [facility] [address]rd [place] [address] 12/04/2024 1:00 PM EDT Office Visit [facility] [address] [place] [address] Sabas Trinidad MD [address] [facility] [address] [place], [place] [address] documented as of this encounter Visit Diagnoses Not on filedocumented in this encounter Care Teams Staff Reporter Relationship Specialty Start Date End Date Ziyad Salomon MD [address] [address] [address] [place] [address] PCP - General Adolescent Medicine 10/25/16 documented as of this encounter
--- OUTSIDE RECORDS SUMMARY | 2024-10-28 09:55 | XMS_ITS | Encounter Summary ---
Author Organization [employer] ([place], [place], [place], [place]) Address [address] [place] [address] Care Team Providers Care Tractor Mechanic Name Role Phone Unavailable Primary Care Provider Unavailabl e Encounter Details Date Type Department Care Team (Late st Contact Info) Description 11/13/2020 Transcribed Document [facility] [address] [place] [address] ProviderJason MD [address] [place], [place] [phone] Social History Tobacco Use Types Packs/Day Years [...] from sitting : Severe 7. Bending to floor/brass pickler an object : Moderate KOOS JR Raw [...]
--- OUTSIDE RECORDS SUMMARY | 2024-10-28 09:55 | XMS_ITS | Encounter Summary ---
Author Organization [employer] ([place], [place], [place], [place]) Address [address] [place] [address] Care Team Providers Care Control Integration Engineer Name Role Phone Unavailable Primary Care Provider Unavailabl e Encounter Details Date Type Department Care Team (Late st Contact Info) Description 12/08/2020 Transcribed Document [facility] [address] [place] [address] ProviderJason MD [address] [place], [place] [address] Social History Tobacco Use Types Packs/Day Years [...]
--- OUTSIDE RECORDS SUMMARY | 2024-10-28 09:55 | XMS_ITS | Clinical Summary ---
Author Organization [facility] Address [address] [place] [address] Care Team Providers Care Restaurant Hourly Team Member Name Role Phone Unavailable Primary [...] SDOH Screening 02/14/2024 Influenza Vaccine (#1) 2024 RSV 50+ and (1 - 1 -dose 75+ series) 2028 Haemophilus Influenzae Type B (Hib) Vaccine Aged [...]
--- OUTSIDE RECORDS SUMMARY | 2024-10-28 09:55 | XMS_ITS | Encounter Summary ---
Author Organization [employer] ([place], [place], [place], [place]) Address [address] [place] [address] Care Team Providers Care Open Hearth Stockyard Supervisor Name Role Phone Unavailable Primary Care Provider Unavailabl e Encounter Details Date Type Department Care Team (Late st Contact Info) Description 12/08/2020 Transcribed Document [facility] [address] [place] [address] ProviderJason MD [address] [place] [address] Social History Tobacco Use Types [...] 1 Health Plan: ANTHEM HMOPPO Policy Number: [id number] Authorization Number: NPR Insurance 2 Health Plan: MEDICARE Policy Number: [id number] Authorization Number: Insurance Primary Name : Lux [id number] Authorization Status-Primary : No precert required Authorized Service Begin Date-Primary : 12/07/2020 EDT Observation Authorization Nbr-Primary : NPR per STAR notes Historical Authorization Comments-Primary : Comment 1: pt is iliana for OP total knee replacement on 12/07/20 [place] NPR per STAR notes (ROSSY ALEX, Mechanical Inspector 12/03/2020 14:49) Damaris Morse Rn-Utilization Review - 12/08/2020 12:34 EDT Electronically signed by Faye [facility] Conversion Program Director Cerner at 06/03/2022 8:45 AM CDT documented in this encounter Plan of Treatment Not on file documented as of this encounter Visit Diagnoses Not on filedocumented in this encounter
--- OUTSIDE RECORDS SUMMARY | 2024-10-28 09:55 | XMS_ITS | Encounter Summary ---
Author Organization [employer] ([place], [place], [place], [place]) Address [address] [place] [address] Care Team Providers Care Hand Leather Trimmer Name Role Phone Unavailable Primary Care Provider Unavailabl e Encounter Details Date Type Department Care Team (Late st Contact Info) Description 12/08/2020 Transcribed Document [facility] [place] [address] [place] [address] ProviderJason MD [address] [place] [address] Social History Tobacco Use Types [...] the text rendition version of the form. Electronically signed by Ander Mckinney Conversion Bander And Cellophaner Helper Machine Cerner at 06/03/2022 8:44 AM CDT documented in this encounter Plan of Treatment Not on file documented as of this encounter Visit Diagnoses Not on filedocumented in this encounter
--- OUTSIDE RECORDS SUMMARY | 2024-10-28 09:55 | XMS_ITS | Encounter Summary ---
Author Organization [employer] ([place], [place], [place], [place]) Address [address] [place] [address] Care Team Providers Care Food Service Worker Name Role Phone Unavailable Primary Care Provider Unavailabl e Encounter Details Date Type Department Care Team (Late st Contact Info) Description 12/07/2020 Transcribed Document [facility] [place] [address] [place] [address] ProviderJason MD [address] [place], [place] [phone] Social History Tobacco Use Types Packs/Day Years [...] Ministry Provided to : Patient, Family/Significant other Restorationism Preference : Confucianist, Gurpreet AYSA CUELLO - 12/07/2020 8:00 EDT Spiritual Assessment Spiritual Assessment Comment/Summary Points : Provided pre-surgery visit and prayer with patient and . Spirital Assessment Comment/Summary Report : SPIRITUAL ASSESSMENT COMMENT/SUMMARY No qualifying data available. ASYA CUELLO - 12/07/2020 8:00 EDT Interventions Emotional Support : Empathic/Engaged listening, Family/Significant other supported Spiritual and Restorationism : Prayer shared, Spiritual/Restorationism support provided ASYA CUELLO 12/07/2020 8:00 EDT documented in this encounter Plan of Treatment Not on file documented as of this encounter Visit Diagnoses Not on filedocumented in this encounter
--- OUTSIDE RECORDS SUMMARY | 2024-10-28 09:55 | XMS_ITS | Encounter Summary ---
Author Organization [employer] ([place], [place], [place], [place]) Address [address] [place] [address] Care Team Providers Care Music Orchestrator Name Role Phone Unavailable Primary Care Provider Unavailabl e Encounter Details Date Type Department Care Team (Late st Contact Info) Description 12/07/2020 Transcribed Document [facility] Radiology 1 [place] [address] Gisele Quinteros MD [facility] [place] [address] Social History Tobacco Use Types [...] : 1955 Associated Diagnoses: None Author: CINTHIARMARIBETH TRANSLATOR AND INTERPRETER Chief Complaint R knee pain Review of [...] Prescribed Nitromist 0.4 mg sublingual spray: 1 [place], SubLINgual, Q5Min, 1 Bottle, 0 Refill(s) Documented [...] mg sublingual spray 0.4 mg = 1 [place], SubLINgual, Q5Min Probiotic Formula oral capsule 2 [...] (diabetes mellitus), type 2 / SNOMED CT 451479689 / Confirmed Stomach cancer / SNOMED CT 130637679 / Confirmed IBS (irritable bowel syndrome) / SNOMED CT 01522614 / Confirmed Hypothyroidism / SNOMED CT 28647097 / Confirmed HTN (hypertension) / SNOMED CT 0370166636 / Confirmed GERD (gastroesophageal reflux disease) / SNOMED CT 632245722 / Confirmed Diverticulitis / SNOMED CT 470964739 / Confirmed At risk for sleep apnea / IMO 10559688 / Confirmed, Active Problems (8) At risk for sleep apnea Diverticulitis DM (diabetes mellitus), type 2 GERD (gastroesophageal reflux disease) HTN (hypertension) Hypothyroidism IBS (irritable bowel syndrome) Stomach cancer osteoarthritis Histories Past Medical History: No active or resolved past medical history items have been selected or recorded. Family History: No family history items have been selected or recorded. Procedure history: Cholecystectomy (99457736). bilateral meniscus repair. Hysterectomy (748448790). stomach cancer. Anal fissure (48304015). Oral surgery (6839208876). Social History Social & Psychosocial Habits Alcohol [...] exam in office notes. Integumentary: Warm, Dry, [place]. Neurologic: Alert, Oriented. Psychiatric: Cooperative, Appropriate mood [...]
--- OUTSIDE RECORDS SUMMARY | 2024-10-28 09:55 | XMS_ITS | Encounter Summary ---
Author Organization [facility] Address [address] [place] [id number] Care Team Providers Care Surgical Supervisor Name Role Phone Ziyad Salomon MD Primary Care Provider + [phone] Encounter Details Date Type Department Care Team (Late st Contact Info) Description 09/09/2024 Patient rounding ([facility] [facility] [address] [facility] [address], [place] [address] Sabas Trinidad MD [address] [facility] [address] [place] [address] Social History Tobacco Use Types Packs/Day Years [...] is Mayi Vega, and I am the Playground Supervisor for [facility] [place]. I would like to thank you for [...] with your visit with us as a [facility] facility? Over the next few days, you will be receiving a Patient Experience Survey. Please consider taking the survey, as it helps [facility] in improving their patient care. Thank you for taking the time to answer our questions today. I hope you have a good day. documented in this encounter Plan of Treatment Upcoming Encounters Date Type Department Care Team (Late st Contact Info) Description 10/30/2024 1:45 PM EDT Office Visit [facility] [address] [facility] [address] [facility] [address] [place] [address] Kal Davila PA-C [address] [facility] [address] [place] [address] 11/27/2024 2:00 PM EDT Appointment [facility] CARD[facility] [address]rd [place] [address] 12/04/2024 1:00 PM EDT Office Visit [facility] [address] [facility] [address] [place] [address] Sabas Trinidad MD [address] [facility] [address] [place] [address] documented as of this encounter Visit Diagnoses Not on filedocumented in this encounter Care Teams Surgical Supervisor Relationship Specialty Start Date End Date Ziyad Salomon MD [address] [facility] [address] [facility] [address] PCP - General Adolescent Medicine 10/25/16 documented as of this encounter
--- OUTSIDE RECORDS SUMMARY | 2024-10-28 09:55 | XMS_ITS | Encounter Summary ---
Author Organization [employer] ([place], [place], [place], [place]) Address [address] [place] [address] Care Team Providers Care Gerentological Physiotherapist Name Role Phone Unavailable Primary Care Provider Unavailabl e Encounter Details Date Type Department Care Team (Late st Contact Info) Description 12/07/2020 Transcribed Document [facility] [place] [facility] [place] [address] ProviderJason MD [address] [place] [address] Social History Tobacco Use Types [...]
--- OUTSIDE RECORDS SUMMARY | 2024-10-28 09:55 | XMS_ITS | Encounter Summary ---
Author Organization [employer] ([place], [place], [place], [place]) Address [address] [place] [address] Care Team Providers Care Usability Strategist Name Role Phone Unavailable Primary Care Provider Unavailabl e Encounter Details Date Type Department Care Team (Late st Contact Info) Description 12/07/2020 Transcribed Document [facility] [place] [facility] [place] [address] ProviderJason MD [address] [place] [address] Social History Tobacco Use Types [...] KISHA Sutton PT - 12/08/2020 11:32 EDT Usp Goals Mobility/Bed Mobility LTG PT Grid [...] R knee ROM 0-103 degrees, No Joint cricket coach present during treatment. SBA gait x [...] KISHA RAYGOZA PT - 12/08/2020 11:32 EDT Electronically signed by Ander Mckinney Conversion Homemaking Rehabilitation Consultant Huiner at 06/03/2022 8:44 AM CDT documented in this encounter Plan of Treatment Not on file documented as of this encounter Visit Diagnoses Not on filedocumented in this encounter
--- OUTSIDE RECORDS SUMMARY | 2024-10-28 09:55 | XMS_ITS | Encounter Summary ---
Author Organization [employer] ([place], [place], [place], [place]) Address [address] [place] [address] Care Team Providers Care Design Sales Consultant Name Role Phone Unavailable Primary Care Provider Unavailabl e Encounter Details Date Type Department Care Team (Late st Contact Info) Description 12/11/2020 Transcribed Document [facility] [place] [facility] [place] [address] ProviderJason MD [address] [place] [address] Social History Tobacco Use Types Packs/Day [...] Discharge Disposition : Discharge To Care Management: Home/Residential/[facility] or Self Care -01 Post Visit Phone Call History : First call, Left message Provider Follow-Up Post Discharge : Discharge Follow Up GREG WHITTAKER PA-ORT - 10:15 AM Previously Documented Prison Patient Stated Goal : No Patient Stated Goal America Burroughs RN-Navigator - 12/11/2020 12:40 EDT Electronically signed by Faye [facility] Conversion Medical Photographer Cerner at 06/03/2022 8:43 AM CDT documented in this encounter Plan of Treatment Not on file documented as of this encounter Visit Diagnoses Not on filedocumented in this encounter
--- OUTSIDE RECORDS SUMMARY | 2024-10-28 09:55 | XMS_ITS | Encounter Summary ---
Author Organization [employer] ([place], [place], [place], [place]) Address [address] [place] [address] Care Team Providers Care Plant Director Name Role Phone Unavailable Primary Care Provider Unavailabl e Encounter Details Date Type Department Care Team (Late st Contact Info) Description 12/08/2020 Transcribed Document [facility] Radiology 1 [place] [address] Mary Oneal MD [facility] [address] [address] Social History Tobacco Use Types [...] is a 65 yo female admitted to [facility] per Dr. Quinteros for a right total [...] mg sublingual spray 0.4 mg = 1 [place], SubLINgual, Q5Min Probiotic Formula oral capsule 2 [...]
--- OUTSIDE RECORDS SUMMARY | 2024-10-28 09:55 | XMS_ITS | Encounter Summary ---
Author Organization [employer] ([place], [place], [place], [place]) Address [address] [place] [address] Care Team Providers Care Pipe Stripper Name Role Phone Unavailable Primary Care Provider Unavailabl e Encounter Details Date Type Department Care Team (Late st Contact Info) Description 12/08/2020 Transcribed Document [facility] [place] Formerly [facility] [place] [address] ProviderJason MD [address] [place] [phone] Social History Tobacco Use Types Packs/Day Years [...]
--- OUTSIDE RECORDS SUMMARY | 2024-10-28 09:55 | XMS_ITS | Encounter Summary ---
Author Organization [employer] ([place], [place], [place], [place]) Address [address] [place] [address] Care Team Providers Care Fast Food Services Manager Name Role Phone Unavailable Primary Care Provider Unavailabl e Encounter Details Date Type Department Care Team (Late st Contact Info) Description 11/19/2020 Transcribed Document [facility] [place] Family Medicine [address] [place] [address] ProviderJason MD [address] [place] [address] Social History Tobacco Use Types [...] Source : Measured Height Entry Format : [place] Height, Feet : 5 ft(Converted to: 152 cm, 60 Inch) Height, Inches : 3 Inch(Converted to: 0 ft 3 Inch, 7.62 cm) Clinical Height : 160.02 cm Weight Source : Standing scale Weight Entry Format : [place] Clinical Dosing Weight : 104.09 kg Weight, Pounds : 229 lb Body Surface Area (BSA) : 2.05 m2 Body Mass Index : 40.6 kg/m2 (>HHI) [place] Body Weight : 52 kg YARIEL CAVAZOS [...] : Yes Spiritual/Cultural Needs Comment : 12/07 Gnosticism Preference : Hindu, Gurpreet Spiritual/Cultural Needs Comment : 12/07 YARIEL CAVAZOS RN - 11/19/2020 11:15 EDT [place] Suicide Severity Rating Scale (C-SSRS) CSSRS Past [...] Mode of Arrival on Unit : Ambulatory YARILE CAVAZOS RN - 11/19/2020 11:15 EDT Legal [...] Mode : Verbal Communication Barrier : None Helminthologist Needed : No Objects to Sharing Info [...]
--- OUTSIDE RECORDS SUMMARY | 2024-10-28 09:55 | XMS_ITS | Encounter Summary ---
Author Organization [employer] ([place], [place], [place], [place]) Address [address] [place] [address] Care Team Providers Care Facing Slitter Name Role Phone Unavailable Primary Care Provider Unavailabl e Encounter Details Date Type Department Care Team (Late st Contact Info) Description 12/07/2020 Transcribed Document [facility] [place] Family Medicine [address] [place] [address] ProviderJason MD [address] [place], [place] [phone] Social History Tobacco Use Types Packs/Day Years [...] 12/07/2020 7:53 EDT by Dano Max PATIENT CYTOLOGIST Phone Call for Consults Consult Phone Call/Page Attempt : Other: Completed 12/07 Dano Max PATIENT CYTOLOGIST - 12/08/2020 8:11 EDT documented in this encounter Plan of Treatment Not on file documented as of this encounter Visit Diagnoses Not on filedocumented in this encounter
--- OUTSIDE RECORDS SUMMARY | 2024-10-28 09:55 | XMS_ITS | Encounter Summary ---
[facility] Address [address] [id number] Care Team Providers Care Front Window Cashier Name Role Phone Ziyad Salomon MD Primary Care Provider + [phone] Reason for Visit * Reason Onset Date Comments Med Refill 09/25/2024 Encounter Details Date Type Department Care Team (Late st Contact Info) Description 09/25/2024 Refill [facility] C[facility] [address] [address] Sabas Trinidad MD [address] [facility] [address] [place] [address] Med Refill Social History Tobacco Use Types Packs/Day Years [...] PM EDT documented as of this encounter Miscellaneous Notes * Telephone Encounter - Jojo Crowder MA - 09/25/2024 10:11 AM EDT Rx Refill Note Requested Prescriptions Pending Prescriptions Disp Refills empagliflozin (Jardiance) 10 MG tablet tablet 90 tablet 1 Sig: Take 1 tablet by mouth Every Morning. Last office visit with prescribing clinician: 09/09/2024 Last telemedicine visit with prescribing clinician: Visit date not found Next office visit with prescribing clinician: 10/21/2024 Pharmacy Info Last Fill Date: Rx Written Date: Prescribed Qty: Additional Details from Pharmacy: Patient passed protocols per karol. Jojo Crowder MA 09/25/24, 10:11 EDT documented in this encounter Plan of Treatment Upcoming Encounters Date Type Department Care Team (Late st Contact Info) Description 10/30/2024 1:45 PM EDT Office Visit [facility] END[facility] [address] [place] [address] Kal Davila PA-C [address] [place] [address] 11/27/2024 2:00 PM EDT Appointment [facility] [address] [place] [address] 12/04/2024 1:00 PM EDT Office Visit [facility] [address] [facility] [address], [place] [address] Sabas Trinidad MD [address] [facility] [address] [place] [address] documented as of this encounter Visit Diagnoses Not on filedocumented in this encounter Care Teams Front Window Cashier Relationship Specialty Start Date End Date Ziyad Salomon MD [address] [facility] [address] [place] [address] PCP - General Adolescent Medicine 10/25/16 documented as of this encounter
--- OUTSIDE RECORDS SUMMARY | 2024-10-28 09:55 | XMS_ITS | Encounter Summary ---
Author Organization [employer] ([place], [place], [place], [place]) Address [address] [place] [address] Care Team Providers Care Manager Logistic Name Role Phone Unavailable Primary Care Provider Unavailabl e Encounter Details Date Type Department Care Team (Late st Contact Info) Description 12/08/2020 Transcribed Document [facility] [place] Family Medicine [address] [place] [address] ProviderJason MD [address] [place] [address] Social History Tobacco Use Types [...] On: 12/08/2020 16:26 EDT by ARMIN TABOR RN-Costume Cutter Final Discharge Planning Discharge Arrangements : Patient [...] : Yes Discharge To Care Management : Home/Residential/Skilled Nursing or Self Care - ARMIN TABOR RN-Costume Cutter - 12/08/2020 16:26 EDT documented in this encounter Plan of Treatment Not on file documented as of this encounter Visit Diagnoses Not on filedocumented in this encounter
--- OUTSIDE RECORDS SUMMARY | 2024-10-28 09:55 | XMS_ITS | Encounter Summary ---
[facility] Address [address] [place] [address] Care Team Providers Care Junior Mechanical Engineer Name Role Phone Ziyad Saolmon MD Primary Care Provider + [phone] Encounter Details Date Type Department Care Team (Late Contact Info) Description 09/27/2024 Results Follow-Up [facility] END[facility] [address] [place] [address] Kal Davila PA-C [address] [facility] [address] [place] [phone] Social History Tobacco Use Types Packs/Day Years [...] Description 10/30/2024 1:45 PM EDT Office Visit [facility] [address] [place] [address] Kal Davila PA-C [address] [facility] [address] [place] [address] 11/27/2024 2:00 PM EDT Appointment [facility] [address]rd [place] [phone] 12/04/2024 1:00 PM EDT Office [facility] [address] [facility] [address] [place] [phone] Sabas Trinidad MD [address] [facility] [address] [place] [address] documented as of this encounter Visit Diagnoses Not on filedocumented in this encounter Care Teams Junior Mechanical Engineer Relationship Specialty Start Date End Date Ziyad Salomon MD [address] [facility] [address] [facility] [address] [place] [address] PCP - General Adolescent Medicine 10/25/16 documented as of this encounter
--- OUTSIDE RECORDS SUMMARY | 2024-10-28 09:55 | XMS_ITS | Encounter Summary ---
Author Organization [employer] ([place], [place], [place], [place]) Address [address] [place] [address] Care Team Providers Care Director Of Vendor Management Name Role Phone Unavailable Primary Care Provider Unavailabl e Encounter Details Date Type Department Care Team (Late st Contact Info) Description 12/07/2020 Transcribed Document [facility] [place] Family Medicine [facility] [place] [address] ProviderJason MD [address] [place] [address] Social History Tobacco Use Types [...] KISHA RAYGOZA, PT - 12/07/2020 14:42 EDT Coal Sampler Goals Mobility/Bed Mobility LTG PT Grid Goal [...] KISHA RAYGOZA, PT - 12/07/2020 14:42 EDT Electronically signed by Ander Mckinney Conversion Hoisting Engineer Pile Driving Cerner at 06/03/2022 8:43 AM CDT documented in this encounter Plan of Treatment Not on file documented as of this encounter Visit Diagnoses Not on filedocumented in this encounter
--- OUTSIDE RECORDS SUMMARY | 2024-10-28 09:55 | XMS_ITS | Encounter Summary ---
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
--- OUTSIDE RECORDS SUMMARY | 2024-10-28 09:55 | XMS_ITS | Encounter Summary ---
Author Organization [employer] ([place], [place], [place], [place]) Address [address] [place] [address] Care Team Providers Care Photoresist Printer Name Role Phone Unavailable Primary Care Provider Unavailabl e Encounter Details Date Type Department Care Team (Late st Contact Info) Description 12/07/2020 Transcribed Document [facility] [place] Family Medicine [facility] [place] [address] ProviderJason MD [address] [place] [address] Social History Tobacco Use Types [...] LALITA SCHULZ OTR/Alejandro - 12/07/2020 14:26 EDT Dough Braker Goals, OT Dressing, Lower Body LTG Grid [...]
--- OUTSIDE RECORDS SUMMARY | 2024-10-28 09:55 | XMS_ITS | Encounter Summary ---
Author Organization [employer] ([place], [place], [place], [place]) Address [address] [place] [address] Care Team Providers Care Store Receiving Specialist Name Role Phone Unavailable Primary Care Provider Unavailabl e Encounter Details Date Type Department Care Team (Late st Contact Info) Description 11/06/2020 Transcribed Document [facility] [place] Family Medicine [facility] [place] [address] ProviderJason MD [facility] [place] [address] Social History Tobacco Use Types [...] doctor here. She would like OPT at [facility] OPT. An appt will be made. America Burroughs RN-Navigator - 11/06/2020 15:16 EDT documented in this encounter Plan of Treatment Not on file documented as of this encounter Visit Diagnoses Not on filedocumented in this encounter
--- OUTSIDE RECORDS SUMMARY | 2024-10-28 09:56 | XMS_ITS | Encounter Summary ---
Author Organization [employer] ([place], [place], [place], [place]) Address [address] [place] [address] Care Team Providers Care Mortgage Broker Name Role Phone Unavailable Primary Care Provider Unavailabl e Encounter Details Date Type Department Care Team (Late st Contact Info) Description 12/07/2020 Transcribed Document [facility] Family Medicine [facility] [place] [address] ProviderJason MD [address] [place] [phone] Social History Tobacco Use Types Packs/Day Years [...] EDT Electronically signed by Ander Mckinney Conversion Powerhouse Mechanic Supervisor Cerner at 06/03/2022 8:53 AM CDT documented in this encounter Plan of Treatment Not on file documented as of this encounter Visit Diagnoses Not on filedocumented in this encounter
--- OUTSIDE RECORDS SUMMARY | 2024-10-28 09:56 | XMS_ITS | Encounter Summary ---
Author Organization [employer] ([place], [place], [place], [place]) Address [address] [place] [address] Care Team Providers Care Half Sole Fitter Name Role Phone Unavailable Primary Care Provider Unavailabl e Encounter Details Date Type Department Care Team (Late st Contact Info) Description 12/07/2020 Transcribed Document [facility] [place] Family Medicine [facility] [place] [address] ProviderJason MD [address] [place] [address] Social History Tobacco Use Types [...] Jason MD - 12/07/2020 10:22 AM CDT [facility] Main OR IntraOp Summary Primary Physician: MARLEY CLARK MD-ORT Finalized Date/Time: 12/08/20 15:20:49 Pt. Name: LESLIE MURCIA /Sex: 1955 Female Med Rec #: [id number] Physician: MARLEY CLARK MD-ORT Financial #: [id number] Pt. Type: O Room/Bed: 637/1 Admit/Disch: 12/07/20 05:53:00 - Institution: [facility] IntraOp Case Attendance Entry 1 Entry 2 Entry 3 Case Attendee MARLEY CLARK RHYNE, HEATHER, MD-SELAM RON, FLORENCIO SOLOMON BACK END WEB DEVELOPER, ADVANCED SOLUTIONS ARCHITECT Role Performed Surgeon/Proceduralist, Anesthesiologist of ADVANCED SOLUTIONS ARCHITECT/Nurse Beauty Operator Apprentice First Record Time In 12/07/20 09:46:00 12/07/20 [...] KAPOOR CSA Compton, Tracy R, Nils Skelton, Converter Skimmer Role Performed Fire Prevention Inspector, First Test Lead, First Scrub, First Time In 12/07/20 09:46:00 [...] Attendee OTHER, ATTENDEE YARIEL AVENDANO, Khadar Leon, Property Manager Role Performed Vendor Test Lead, Second Scrub, First Time In 12/07/20 09:46:00 12/07/20 09:46:00 12/07/20 09:46:00 Time Out 12/07/20 11:44:00 12/07/20 11:44:00 12/07/20 11:44:00 Procedure Knee Total Joint Knee Total Joint Knee Total Joint Replacement(Right) Replacement(Right) Replacement(Right) Other Attendee RK BRIDGES LUNCH RELIEF Superficial Wound Closed By: Last Modified By: Jazlyn Medeiros Rn Compton, Tracy R, Jazlyn Donovan Rn 12/07/20 12:04:09 12/07/20 12:04:09 12/07/20 12:04:09 [facility] IntraOp Case Attendance Audit 12/07/20 12:04:09 Talent Consultant: [id number] Modifier: [id number] 1 <+> Time Out 1 <*> Procedure [...] Procedure Knee Total Joint Replacement(Right) 12/07/20 11:27:59 Talent Consultant: [id number] Modifier: [id number] 1 <*> Procedure Knee Total Joint Replacement(Right) [...] Procedure <+> 9 Other Attendee 12/07/20 11:08:10 Talent Consultant: [id number] Modifier: [id number] 1 <*> Procedure Knee Total Joint Replacement(Right) [...] Role Performed <+> 8 Procedure 12/07/20 10:15:58 Talent Consultant: [id number] Modifier: [id number] 1 <+> Time In 1 <*> Procedure [...] Procedure <+> 7 Other Attendee 12/07/20 08:11:26 Talent Consultant: [id number] Modifier: [id number] <+> 1 Procedure 2 <*> Procedure Knee Total Joint Replacement(Right) 3 <*> Procedure Knee Total Joint Replacement(Right) 4 <*> Procedure Knee Total Joint Replacement(Right) 5 <*> Procedure Knee Total Joint Replacement(Right) 6 <*> Procedure Knee Total Joint Replacement(Right) [facility] IntraOp Case Times Entry 1 Patient In Room Time 12/07/20 09:46:00 Out Room Time 12/07/20 11:44:00 Anesthesia Start Time 12/07/20 09:46:00 Stop Time 12/07/20 11:44:00 Surgery / Procedure Times Start Time 12/07/20 10:22:00 Stop Time 12/07/20 11:34:00 Last Modified By: Jazlyn Medeiros Rn 12/07/20 12:04:01 [facility] IntraOp Case Times Audit 12/07/20 12:04:01 Talent Consultant: [id number] Modifier: [id number] <+> 1 Out Room Time <+> 1 Stop Time <+> 1 Stop Time 12/07/20 10:22:32 Talent Consultant: [id number] Modifier: [id number] <+> 1 Start Time [facility] IntraOp Cautery Entry 1 ESU Identification Cautery Type Monopolar ESU ID Number [id number] ID Type Hospital Number Cautery Settings Cut [...] Modified By: Jazlyn Medeiros Rn 12/07/20 08:07:20 [facility] IntraOp Communication Entry 1 Entry 2 Communication To Family/Significant other Family/Significant other Comment CLOSING Communication By Jazlyn Medeiros Rn TAYLOR, MELISSA A, RN Date and Time 12/07/20 10:26:00 12/07/20 11:19:00 Last Modified By: Jazlyn Medeiros Rn Compton, Tracy R, Rn 12/07/20 10:26:11 12/07/20 11:19:07 [facility] IntraOp Communication Audit 12/07/20 11:19:07 Talent Consultant: [id number] Modifier: [id number] <+> 2 Communication By <+> 2 Date and Time <+> 2 Communication To <+> 2 Comment [facility] IntraOp Counts Verification Entry 1 Procedure Knee Total Joint Replacement(Right) Count Info Count Type Sponge, Sharps Counts Verification Baseline/pre-procedure Sequence Count Results Not Applicable Counts Performed By Count Performed By Nils Patterson, Scrub (Scrub) Tech Count Performed By Jazlyn Medeiros Rn (RN) Last Modified By: Jazlyn Medeiros Rn 12/07/20 08:07:34 [facility] IntraOp Counts Final Entry 1 Procedure Knee Total Joint Replacement(Right) Final Count Info Count Type Sponge, Sharps Counts Verification Skin Closure/end of Sequence procedure Count Results Correct, surgeon notified Counts Performed By Count Performed By Khadar Aguilar, Surgical (Scrub) Service Planner Count Performed By YARIEL AVENDANO RN (RN) Last Modified By: Jazlyn Medeiros Rn 12/07/20 11:28:06 [facility] IntraOp Counts Final Audit 12/07/20 11:28:06 Talent Consultant: [id number] Modifier: [id number] 1 <*> Procedure Knee Total Joint Replacement(Right) 1 <+> Count Performed By (Scrub) [facility] IntraOp Cultures and Spec Summary Entry 1 Cultrures and Specimens Specimen Ordered: Yes Test(s) Routine/Path-Lab Requested/Final Disposition Last Modified By: Jazlyn Medeiros Rn 12/07/20 08:07:51 General Comments: A. RIGHT KNEE BONE AND TISSUE [facility] IntraOp Departure from OR Entry 1 Integumentary Assessment Integumentary WDL Assessment WDL Transfer/Handoff Transfer to PACU Phase I Handoff Method Bedside/Face to face, Phone call Post-op Transport Stretcher/Gurney Via Patient Transport PIERRE RON, Accompanied by BACK END WEB DEVELOPER, RYDER, Jazlyn Medeiros Rn Last Modified By: Jazlyn Medeiros Rn 12/07/20 08:08:01 [facility] IntraOp Dressing and Packing Entry 1 Type Dressing Location OPERATIVE KNEE Wound Dressing Item Occlusive dressing, Skin Closure Glue, Other Applied By AZALIA KAPOOR CSA Other Comments AQUACEL AG, KNEE WRAP, BONE FOAM Last Modified By: Jazlyn Medeiros Rn 12/07/20 08:08:07 [facility] IntraOp Fire Risk Assessment Entry 1 [...] Modified By: Jazlyn Medeiros Rn 12/07/20 09:22:52 [facility] IntraOp General Case Independent Agent Music Education 1 Case Information OR OR 04 [facility] Case Level 1 Room Verified Yes Wound Class I - Clean Specialty Orthopedic Anesthesia Type General ASA Class 3 Diagnosis Preop Diagnosis RIGHT KNEE OSTEOARTHRITIS Postop Same As Preop Yes Postop Diagnosis RIGHT KNEE OSTEOARTHRITIS Last Modified By: Jazlyn Medeiros Rn 12/07/20 12:05:03 [facility] IntraOp General Case Data Audit 12/07/20 12:05:03 Talent Consultant: [id number] Modifier: [id number] 1 <*> ASA Class 2 [facility] IntraOp Implant Log Entry 1 Entry 2 Entry 3 Type Implant (Synthetic) Implant (Synthetic) Implant (Synthetic) Implant Log Implant Type Bone Cement Hardware Hardware Tissue Implant Type Implant CEMENT BONE SMPLX PSN ASF MC 10MM VE FEM PERSONA CRU SZ9 Identification [id number] Description Implant Quantity 2 1 1 Implant Site RIGHT KNEE RIGHT KNEE RIGHT KNEE Implant Identification Model Number Implant Identification Serial Number Implant [id number] Identification Lot Number Implant Lizbeth:[place] Gopal:Gopal Us Gopal:Gopal Us Identification Orthopaedics Fixed Income Manager Name: Implant [id number] Identification Catalog Number Implant Size Implant Has an Yes Yes Yes Expiration Date Implant Expiration 05/13/22 03/22/25 01/20/30 Date Wasted Radioactive Material Time Implanted Tissue Implant Continue for Tissue Implant Documentation Tissue Identification Number Graft Prep Per Fixed Income Manager Instructions: Tissue Preparation Method: Reconstitution Solution: Reconstitution Solution Lot Number Reconstitution Solution Expiration Date: Thawing Solution Thawing Solution Lot Number Thawing Solution Expiration Date Preparation Materials, Other Preparation Materials, Other Lot Number Preparation Materials, Other Expiration Date Tissue Prepared/Processed By Fixed Income Manager Paperwork Completed Implant Type Comment Last Modified By: Jazlyn Medeiros Rn Compton, Tracy R, Rn Compton, Tracy R, Rn 12/07/20 11:02:40 12/07/20 11:07:34 12/07/20 11:07:34 Entry 4 Entry 5 Type Implant (Synthetic) Implant (Synthetic) Implant Log Implant Type Hardware Hardware Tissue Implant Type Implant TIB STEM SZ D [id number] PATELLA CEMENTED Identification [id number] Description Implant Quantity 1 1 Implant Site RIGHT KNEE RIGHT KNEE Implant Identification Model Number Implant Identification Serial Number Implant [id number] Identification Lot Number Implant Gopal:Gopal Us Gopal:Gopal Us Identification Fixed Income Manager Name: Implant [id number] Identification Catalog Number Implant Size Implant Has an Yes Yes Expiration Date Implant Expiration 06/30/30 10/11/28 Date Wasted Radioactive Material Time Implanted Tissue Implant Continue for Tissue Implant Documentation Tissue Identification Number Graft Prep Per Fixed Income Manager Instructions: Tissue Preparation Method: Reconstitution Solution: Reconstitution Solution Lot Number Reconstitution Solution Expiration Date: Thawing Solution Thawing Solution Lot Number Thawing Solution Expiration Date Preparation Materials, Other Preparation Materials, Other Lot Number Preparation Materials, Other Expiration Date Tissue Prepared/Processed By Fixed Income Manager Paperwork Completed Implant Type Comment Last Modified By: Jazlny Medeiros Rn Compton, Tracy R, Rn 12/07/20 11:07:34 12/07/20 11:07:34 [facility] IntraOp Implant Log Audit 12/07/20 11:07:34 Talent Consultant: [id number] Modifier: [id number] <+> 2 Implant Identification Description <+> 2 Implant Identification Lot Number <+> 2 Implant Identification Fixed Income Manager Name: <+> 2 Implant Expiration Date <+> 2 Implant Site <+> 2 Implant Quantity <+> 2 Implant Identification Catalog Number <+> 2 Implant Type <+> 2 Implant Has an Expiration Date <+> 2 Type <+> 3 Implant Identification Description <+> 3 Implant Identification Lot Number <+> 3 Implant Identification Fixed Income Manager Name: <+> 3 Implant Expiration Date <+> 3 Implant Site <+> 3 Implant Quantity <+> 3 Implant Identification Catalog Number <+> 3 Implant Type <+> 3 Implant Has an Expiration Date <+> 3 Type <+> 4 Implant Identification Description <+> 4 Implant Identification Lot Number <+> 4 Implant Identification Fixed Income Manager Name: <+> 4 Implant Expiration Date <+> 4 Implant Site <+> 4 Implant Quantity <+> 4 Implant Identification Catalog Number <+> 4 Implant Type <+> 4 Implant Has an Expiration Date <+> 4 Type <+> 5 Implant Identification Description <+> 5 Implant Identification Lot Number <+> 5 Implant Identification Fixed Income Manager Name: <+> 5 Implant Expiration Date <+> 5 Implant Site <+> 5 Implant Quantity <+> 5 Implant Identification Catalog Number <+> 5 Implant Type <+> 5 Implant Has an Expiration Date <+> 5 Type [facility] IntraOp Intraoperative Assessment Entry 1 Handoff [...] Modified By: Jazlyn Medeiros Rn 12/07/20 08:08:38 [facility] IntraOp Intraoperative Equipment Entry 1 Type Equipment Equipment Equipment Slava Suction System ID Number [id number] Setting ON Intraop Monitoring Blood Pressure Non-Invasive BP Device Source Antiembolic Devices Antiembolic Devices Sequential compression device, knee high, Antiembolic hose, knee high Antiembolic Device Left Location Antiembolic Device [id number] ID Number Antiembolic Device SCDS ON AND WORKING Setting PRIOR TO INDUCTION Scopes Photo/Video Documentation Last Modified By: Jazlyn Medeiros Rn 12/07/20 08:09:00 [facility] IntraOp Medication Admin Entry 1 Entry 2 Entry 3 Medication/Irrigant vancomycin 1Gm vial - hydrogen peroxide 16oz ARNOLDO IRR NACL 0.9PCT [id number] - [id number] 2000ML [id number] Combo Med List Time Administered 12/07/20 11:00:00 [...] ACID DR. CLARK KNEE 1000MG/10 ML INJECTION [id number] Combo Med List Time Administered 12/07/20 11:00:00 12/07/20 11:00:00 Route of TOPICAL INJECTION Administration Dose Dose 2 50 Unit of Measure gram ml Volume Administered By MARLEY CLARK KARTHIKEYAN, THARUN, MD-ORT -ORT Procedure Irrigation Irrigant Volume In Irrigant Volume Out Last Modified By: Jazlyn Medeiros Rn Compton, Tracy R, Rn 12/07/20 12:04:48 12/07/20 12:04:48 [facility] IntraOp Medication Admin Audit 12/07/20 12:04:48 Talent Consultant: [id number] Modifier: [id number] 1 <*> Medication/Irrigant vancomycin 1Gm vial - [id number] 1 <+> Time Administered 2 <*> Medication/Irrigant hydrogen peroxide 16oz - [id number] 4 <*> Medication/Irrigant TRANEXAMIC ACID 1000MG/10 ML [id number] 4 <+> Time Administered <+> 5 Time Administered 12/07/20 10:24:43 Talent Consultant: [id number] Modifier: [id number] 2 <*> Medication/Irrigant hydrogen peroxide 16oz - [id number] 2 <+> Time Administered 3 <*> Medication/Irrigant ARNOLDO IRR NACL 0.9PCT 2000ML [id number] 3 <+> Time Administered [facility] IntraOp Patient Positioning Entry 1 Procedure [...] CLARK MD-ORJessica, PIERRE RON APRN, RYDER, Jazlyn Medeirso, Allyn, AZALIA KAPOOR CSA Position Verified Positioning Yes Verified by Anesthesia Positioning Yes Verified by Surgeon Last Modified By: Jazlyn Medeiros Rn 12/07/20 08:10:49 [facility] IntraOp Sign In Entry 1 Patient, [...] Modified By: Jazlyn Medeiros Rn 12/07/20 08:10:59 [facility] IntraOp Sign Out Entry 1 RN [...] Modified By: Jazlyn Medeiros Rn 12/07/20 12:04:06 [facility] IntraOp Sign Out Audit 12/07/20 12:04:06 Talent Consultant: [id number] Modifier: [id number] <+> 1 RN Sign Out Signature Date/Time [facility] IntraOp Skin Prep Entry 1 Procedure Knee Total Joint Replacement(Right) Prescribed Yes Pre-Surgical Prep Completed Prep Area OPERATIVE THIGH TO TOES CIRCUMFRENTIALLY Intraop Prep Integumentary WDL Assessment WDL Prep Agents Chlorhexidine gluconate/alcohol, Chloraprep, DuraPrep Prep by Jazlyn Medeiros Rn Hair Removal Methods No hair removal performed Last Modified By: Jazlyn Medeiros Rn 12/07/20 08:11:20 [facility] IntraOp Surgical Procedures Entry 1 Procedure Knee Total Joint Replacement Modifiers Right Additional (RT TOTAL KNEE Procedure ARTHROPLASTY) Description Primary Procedure Yes Primary Surgeon MARLEY CLARK MD-ORT Start 12/07/20 10:22:00 Stop 12/07/20 11:34:00 Anesthesia Type General Specialty Orthopedic Wound Class I - Clean Last Modified By: Jazlyn Medeiros Rn 12/07/20 12:04:07 [facility] IntraOp Surgical Procedures Audit 12/07/20 12:04:07 Talent Consultant: [id number] Modifier: [id number] <+> 1 Stop 12/07/20 11:28:08 Talent Consultant: [id number] Modifier: [id number] <+> 1 Start [facility] IntraOp Temp Regulation Devices Entry 1 Temp Regulation Temperature Forced Air Warming Regulation Device device, Warm blankets Temperature 28571 Regulation Device Serial/Unit Number Temperature Upper body Regulation Site Temperature Device ON Setting Temperature PIERRE RON, Regulation Device BACK END WEB DEVELOPER, ADVANCED SOLUTIONS ARCHITECT Applied by Temperature THERMOREGULATON Regulation Comment MEASURES MONITORED AND ADJUSTED BY ANESTHESIA Last Modified By: Jazlyn Medeiros Rn 12/07/20 08:11:43 [facility] IntraOP Time Out Entry 1 Procedure [...] Modified By: Jazlyn Medeiros Rn 12/07/20 10:20:59 [facility] IntraOP Time Out Audit 12/07/20 10:20:59 Talent Consultant: [id number] Modifier: [id number] 1 <+> Time Out Pause Time 1 <*> Procedure to be Performed Knee Total Joint Replacement(Right) 12/07/20 10:15:36 Talent Consultant: [id number] Modifier: [id number] 1 <*> Procedure to be Performed Knee Total Joint Replacement(Right) [facility] IntraOp Tourniquet Entry 1 Type Pneumatic Serial/Unit Number [id number] Setting 300 mmHg Pheumatic Yes Tourniquet Checked Per Protocol Size 34 inches Placement Thigh, right upper Skin Protection - Yes Padded Under Cuff Applied By Jazlyn Medeiros Rn Removed By AZALIA KAPOOR CSA Times Start Time 12/07/20 10:21:00 Stop Time 12/07/20 11:27:00 Last Modified By: Jazlyn Medeiros Rn 12/07/20 11:27:28 [facility] IntraOp Tourniquet Audit 12/07/20 11:27:28 Talent Consultant: [id number] Modifier: [id number] <+> 1 Stop Time 12/07/20 10:22:29 Talent Consultant: [id number] Modifier: [id number] <+> 1 Start Time Case Comments <None> [...]
--- OUTSIDE RECORDS SUMMARY | 2024-10-28 09:56 | XMS_ITS | Referral Summary ---
Author Organization [employer] ([place], [place], [place], [place]) Address [address] [place] [address] Care Team Providers Care Electric Golf Cart Repairer Name Role Phone Unavailable Primary Care Provider [...]
--- OUTSIDE RECORDS SUMMARY | 2024-10-28 09:56 | XMS_ITS | Encounter Summary ---
Author Organization [employer] ([place], [place], [place], [place]) Address [address] [place] [address] Care Team Providers Care Compounder Sterile Products Name Role Phone Unavailable Primary Care Provider Unavailabl e Encounter Details Date Type Department Care Team (Late st Contact Info) Description 12/07/2020 Transcribed Document [facility] [place] Family Medicine [facility] [place] [address] ProviderJason MD [address] [place] [address] Social History Tobacco Use Types [...] Jason ProviderMD - 12/07/2020 10:22 AM CDT [facility] Main OR PACU Summary Primary Physician: MARLEY CLARK MD-ORT Finalized Date/Time: 12/07/20 14:09:17 Pt. Name: LESLIE MARTÍNEZ /Sex: 1955 Female Med Rec #: [id number] Physician: MARLEY CLARK MD-ORT Financial #: [id number] Pt. Type: O Room/Bed: 637/1 Admit/Disch: 12/07/20 05:53:00 - Institution: [facility] Main OR PACU I Case Times Entry 1 In PACU I 12/07/20 11:47:00 Ready for PACU 12/07/20 13:55:00 Discharge Discharge from PACU 12/07/20 13:55:00 I Last Modified By: ROSEANN MURRAY RN 12/07/20 14:09:10 Finalized By: ROSEANN MURRAY, RN Document Signatures Signed By: ROSEANN MURRAY RN 12/07/20 14:09 Electronically signed by [facility] Conversion Associate [employer] Retail [employer]ner at 06/03/2022 8:53 AM CDT documented in this encounter Plan of Treatment Not on file documented as of this encounter Visit Diagnoses Not on filedocumented in this encounter
--- OUTSIDE RECORDS SUMMARY | 2024-10-28 09:56 | XMS_ITS | Encounter Summary ---
Author Organization [employer] ([place], [place], [place], [place]) Address [address] [place] [address] Care Team Providers Care Director Of Analytics Name Role Phone Unavailable Primary Care Provider Unavailabl e Encounter Details Date Type Department Care Team (Late st Contact Info) Description 12/07/2020 Transcribed Document [facility] Radiology [address] [place] [address] Gisele Quinteros MD [facility] [place] [address] Social History Tobacco Use Types [...] Diagnosis Osteoarthritis right knee *Surgeon(s) Surgeon: Aldair Bindery Machine Tender: Moisés Taylor CSA *Procedure Narrative Patient identified [...] and PCL were resected. Next, distal femoral instructor pilot hole was drilled and the intramedullary [...] with a Bovie. Femur was sized. The Get[employer]iveon gap silver solderer was placed and tensed. Posterior condyle resection as noted above. Drill holes made through the silver solderer and the appropriately sized four-in-one block placed [...]
--- OUTSIDE RECORDS SUMMARY | 2024-10-28 09:56 | XMS_ITS | Clinical Summary ---
Author Organization [facility] Address [address] [place] [address] Care Team Providers Care Care Process Manager Name Role Phone Ziyad Salomon MD Primary Care Provider + [phone] Allergies Active Allergy Reactions Criticality Noted Date [...] [facility]-Zoster Vaccines (2 of 2) 04/12/2021 02/15/2021 [id number] Vaccine (4 - 2024- season) 2024 11/16/2020, 03/25/2020, 02/26/2020 [facility]Y-Influenza Vaccine (#1) 2024 [...] to complete this topic [place] [address] Care Teams Care Process Manager Relationship Specialty Start Date End Date Ziyad Salomon MD [address] [place] [address] [place] [address] PCP - General 06/26/20
--- OUTSIDE RECORDS SUMMARY | 2024-10-28 09:56 | XMS_ITS | Encounter Summary ---
Author Organization [employer] ([place], [place], [place], [place]) Address [address] [place] [address] Care Team Providers Care Keyboarding Teacher Name Role Phone Unavailable Primary Care Provider Unavailabl e Encounter Details Date Type Department Care Team (Late st Contact Info) Description 12/07/2020 Transcribed Document [facility] [place] Family Medicine [facility] [place] [address] ProviderJason MD [facility] [place], [place] [id number] Social History Tobacco Use Types Packs/Day Years [...] : No Emergency Contact #1 : Mois[facility] Emergency Contact #1 Emergency Contact #1 Relationship : son Emergency Contact #2 : [facility] Emergency Contact #2 Emergency Contact #2 Relationship : spouse Information Obtained From : Patient Primary Language : Ghanaian Preferred Communication Mode : Verbal Communication Barrier : None Special Education Math Teacher Needed : No Objects to Sharing Info [...] Scale Risk Level : 25-45 Medium Risk [place] Fall Interventions : Fall prevention handout/education per [...] Source : Measured Height Entry Format : [place] Height, Feet : 5 ft(Converted to: 152 cm, 60 Inch) Height, Inches : 3 Inch(Converted to: 0 ft 3 Inch, 7.62 cm) Clinical Height : 160.02 cm Weight Source : Standing scale Weight Entry Format : [place] Clinical Dosing Weight : 104.09 kg Weight, Pounds : 229 lb Body Surface Area (BSA) : 2.05 m2 Body Mass Index : 40.6 kg/m2 (>HHI) [place] Body Weight : 52 kg Ca Brennan [...] CARE BEDSIDE NON-EXEMPT - 12/07/2020 14:47 EDT [place] Suicide Severity Rating Scale (C-SSRS) CSSRS Past [...]
--- OUTSIDE RECORDS SUMMARY | 2024-10-28 09:56 | XMS_ITS | Encounter Summary ---
Author Organization [email or web address] ([place], [place], [place], [place]) Address [address] [place] [address] Care Team Providers Care Computer Support Technician Name Role Phone Unavailable Primary Care Provider Unavailabl e Encounter Details Date Type Department Care Team (Late st Contact Info) Description 12/07/2020 Transcribed Document [facility] [place] Family Medicine [facility] [place] [address] ProviderJason MD [address] [place] [address] Social History Tobacco Use Types Packs/Day [...] ENRIQUE NAQVI OTR/Alejandro - 12/08/2020 12:20 EDT [facility] Goals, OT Dressing, Lower Body LTG Grid [...] long handled sponge, long handled shoe horn, clinical assessment manager, sock aid, and leg energy auditor. Pt dressed fully with Aileen and cueing [...]
--- OUTSIDE RECORDS SUMMARY | 2024-10-28 09:56 | XMS_ITS | Encounter Summary ---
Author Organization [employer] ([place], [place], [place], [place]) Address [address] [place] [address] Care Team Providers Care Robotic Technician Name Role Phone Unavailable Primary Care Provider Unavailabl e Encounter Details Date Type Department Care Team (Late st Contact Info) Description 12/07/2020 Transcribed Document [facility] [place] [facility] [place] [address] ProviderJason MD [address] [place] [address] Social History Tobacco Use Types [...] - 12/07/2020 8:45 EDT Electronically signed by [facility] Conversion Roll Line Operator Cerner at 06/03/2022 8:51 AM CDT documented in this encounter Plan of Treatment Not on file documented as of this encounter Visit Diagnoses Not on filedocumented in this encounter
--- OUTSIDE RECORDS SUMMARY | 2024-10-28 09:56 | XMS_ITS | Clinical Summary ---
Author Organization [facility] Address [address] [place] [address] Care Team Providers Care Road Boss Name Role Phone Ziyad Salomon MD Primary Care Provider + [phone] Allergies Active Allergy Reactions Criticality Noted Date Comments Other Other (See Comments) Low 07/13/2018 Strawberries, angioedema Hunter Hives Low 08/27/2024 Tetracyclines & Related Rash Low 10/26/2016 Medications atorvastatin (LIPITOR) 80 MG tablet TAKE 1 TABLET BY MOUTH AT BEDTIME 1 7 Active meloxicam (MOBIC) 15 MG tablet 1 PO Daily with food. 90 tablet 2 7 Active fexofenadine (JOSÉ MANUEL) 180 MG tablet Take 1 tablet by mouth Daily. Active carvedilol (COREG) 25 MG tablet Take 1 tablet by mouth 2 (Two) Times a Day With Meals. 90 tablet 1 5 Active Kerendia 20 MG tablet Take 1 tablet by mouth Daily. 90 tablet 1 5 Active Xarelto 20 MG tablet Take 1 tablet by mouth Daily With Dinner. 90 tablet 1 5 Active propafenone (RYTHMOL) 150 MG tablet Take 1 tablet by mouth Every 8 (Eight) Hours. 270 tablet 1 5 Active valsartan (DIOVAN) 160 MG tablet Take 1 tablet by mouth Daily. Active empagliflozin (Jardiance) 10 MG tablet tablet Take 1 tablet by mouth Every Morning. 90 tablet 1 5 Active levothyroxine (SYNTHROID, LEVOTHROID) 137 MCG tablet Take 1 tablet by mouth Every Morning. Active Zinc 50 MG tablet Take by mouth. Activ e Probiotic Product (Up4 Probiotics) chewable tablet Chew. Active vitamin B-12 (CYANOCOBALAMI N) 1000 MCG tablet Take 1 tablet by mouth Daily. Active Ozempic, 2 MG/DOSE, 8 MG/3ML solution pen-injector Inject 2 mg under the skin into the appropriate area as directed 1 (One) Time Per Week. 9 mL 1 5 Active Ozempic, 2 MG/DOSE, 8 MG/3ML solution pen-injector Inject 2 mg under the skin into the appropriate area as directed 1 (One) Time Per Week. 9 mL 1 5 10/16/19 25 Discontin ued(Reord er) Active Problems Problem Noted Date Diagnosed Date Hyperlipidemia Morbid obesity Hypertension Assessment & Plan (09/09/2024 10:52 AM EDT): Hypertension is stable and controlled Continue current treatment regimen. Blood pressure will be reassessed in 6 months. Hypothyroidism Assessment & Plan (09/25/2024 2:03 PM EDT): Last TSH 13.3. Will recheck TFTs today in office. Patient is currently on Synthroid 137 mcg. Patient is not having any swelling in her throat. No palpable thyroid mass on exam. I discussed with patient possible increase in Synthroid dose from 137 to 150 mcg depending on lab work today. Advised patient I will inform her via [employer] in regards to any medication changes based on lab work today. Orders: T3; Future T4, Free; Future TSH; Future Assessment & Plan (09/09/2024 10:52 AM EDT): Referred to endocrinology. Type 2 diabetes mellitus Assessment & Plan (09/25/2024 2:03 PM EDT): Last A1c 6.5%. Discussed with patient that [...] to diabetes control. Orders: POC Glucose, Blood Assessment & Plan (09/09/2024 10:52 AM EDT): Diabetes is stable. Continue current treatment regimen. Diabetes will be reassessed in 6 months Dyspepsia Encounters Date Type Department Care Team Description 10/15/2024 Refill [facility] CARDIOLOGY [address] [facility] [address] [place] [address] Sabas Trinidad MD Med Refill 09/27/2024 Results Follow-Up [facility] ENDOCRINOLOGY [address] [place] [address] Day[place] PA-C 09/25/2024 12:45 PM EDT Office Visit [facility] [address] [place] [address] Lola, RADU Bowden Type 2 diabetes mellitus with stage 2 chronic kidney disease, without long-term current use of insulin (Primary Dx); Hypothyroidism, unspecified type; Polyuria; Polydipsia 09/25/2024 Travel 09/25/2024 Refill [facility] CARDIOLOGY [address] [facility] [address] [place] [address] Sabas Trinidad MD Med Refill 09/09/2024 11:00 AM EDT Office Visit [facility] CARDIOLOGY [address] [place] [address] [address] [place] [address] Sabas Trinidad MD Type 2 diabetes mellitus with other circulatory complication, without long-term current use of insulin (Primary Dx); Primary hypertension; Paroxysmal A-fib; Hyperlipidemia LDL goal <55; Hypothyroidism, unspecified type; CKD (chronic kidney disease) stage 2, GFR 60-89 ml/min; Syncope and collapse 09/09/2024 Patient rounding ([facility] only) [facility] CARDIOLOGY [address] [place] [address] [address] [place] [address] Sabas Trinidad MD 09/09/2024 Travel from Last 3 Months Family History Medical [...] Marie Sánchez Heart attack Mother Anna Marie áSnchez Heart disease Mother Anna Marie Sánchez Hyperlipidemia Mother Anna Marie Sánchez Hypertension Mother Anna Marie Sánchez Obesity Mother nAna Marie Sánchez carotid artery disease Mother Anna Marie Sánchez [...] Pulse 88 09/25/2024 12:52 PM EDT Temperature 36.5 C (97.7 F) 07/25/2018 2:09 PM EDT Respiratory Rate 18 07/25/2018 2:09 PM EDT Oxygen Saturation 99% 07/25/2018 2:09 PM EDT Inhaled Oxygen Concentration - - Weight 96.6 kg (213 lb) 09/25/2024 12:52 PM EDT Height 160 cm (5' 2.99 ) 09/25/2024 12:52 PM EDT Body Mass Index 37.74 09/25/2024 12:52 PM EDT Plan of Treatment Upcoming Encounters Date Type Department Care Team (Late st Contact Info) Description 10/30/2024 1:45 PM EDT Office Visit [facility] ENDOCRINOLOGY [address] [place] [address] Kal Davila PA-C [address] [place] [address] 11/27/2024 2:00 PM EDT Appointment [facility] [address] [place] [address] 12/04/2024 1:00 PM EDT Office Visit [facility] CARDIOLOGY [address] [facility] [address] [place] [address] Sabas Trinidad MD [address] [facility] [address] [place] [address] Health Maintenance Due Date Last Done Comments DXA SCAN 1955 LIPID PANEL 1955 URINE MICROALBUMIN-CREATININ E RATIO (uACR) 06[birth year]06/1965 MAMMOGRAM 1993 COLOGUARD 1998 COLON CANCER SCREENING 5 YEA R SIGMOIDOSCOPY 1998 COLONOSCOPY 1998 COLORECTAL CANCER SCREENING 1998 CT COLONOGRAPHY 1998 FECAL OCCULT BLOOD TEST 1998 FIT Testing (1 year) 1998 ANNUAL WELLNESS VISIT 10/26/2016 HEMOGLOBIN A1C 10/26/2016 HEPATITIS C SCREENING 10/26/2016 Pneumococcal Vaccine 50+ (2 of 2 - PCV) 11/10/2019 11/09/2018 COVID-19 Vaccine ( - 2024-2 6 season) 2024 11/16/2020, 03/25/2020, 02/26/2020 INFLUENZA VACCINE 11/13/2024 11/20/2023, , 01/06/2020, Additional history exists DIABETIC EYE EXAM 02/27/2025 02/28/2024 (Alec stewart-Reported (Performed Externally)) DIABETIC FOOT EXAM 09/25/2025 09/25/2024 TDAP/TD VACCINES (2 - Td or Tdap) 02/15/2031 022 ZOSTER VACCINE Completed 07/16/2024, 02/15/2021 Procedures Procedure Name Priority Date/Time Associated Diagnosis Comments PHOSPHORUS Routine 09/25/2024 1:50 PM EDT Polyuria Polydipsia OSMOLALITY, URINE Routine 09/25/2024 1:5 0 PM EDT Polyuria Polydipsia OSMOLALITY Routine 09/25/2024 1:50 PM EDT Polyuria Polydipsia COMPREHENSIVE METABOLIC PANEL Routine 09/25/2024 1:50 PM EDT Polyuria Polydipsia TSH Routine 09/25/2024 1:50 PM EDT Hypothyroidism, unspecified type T4, FREE Routine 09/25/2024 1:50 PM EDT Hypothyroidism, unspecified type T3 Routine 09/25/2024 1:50 PM EDT Hypothyroidism, unspecified type POCT GLUCOSE, BLD (NON STRIP) Routine 09/25/2024 1:02 PM EDT Type 2 diabetes mellitus with stage 2 chronic kidney disease, without long-term current use of insulin SCANNED - LABS Routine 08/27/2024 10:41 AM EDT SCANNED EKG Routine 08/27/2024 10:40 AM EDT SCANNED - LABS 08/17/2024 SCANNED - LABS 08/13/2024 from Last 3 Months Results * Osmolality, Urine - Urine, Clean Catch (09/25/2024 1:50 PM EDT) Osmolality, Urine 479 mOsm/kg 09/26/2024 2:13 AM EDT [facility] Urine Urine specimen obtained by clean catch procedure / Unknown Collection / Unknown 09/25/2024 1:50 PM EDT 09/25/2024 1:50 PM EDT Narrative [facility] - 09/26/2024 2:13 AM EDT Osmo Normal Reference Ranges: Random: 50-1400 mOsm/kg H2O, depending on fluid intake. Random: >850 mOsm/kg H20, after 12 hour fluid restriction. 24 Hour: 300-900 mOsm/kg H2O. [facility] PA-C URINE ORDERABLES Final Result Performing Organization Address City/[facility]/ZIP Co de Phone Number [facility]
[address] [place] [address], * T3 (09/25/2024 1:50 PM EDT) T3, Total 118.0 80.0 - 200.0 ng/dl 09/26/2024 2:43 AM EDT [facility] Blood Venipuncture / Unknown 09/25/2024 1:50 PM EDT 09/25/2024 1:50 PM EDT Narrative [facility] - 09/26/2024 2:43 AM EDT Results may be falsely increased if patient taking Biotin. [facility] PA-C LAB BLOOD ORDERABLES Final Resu lt Performing Organization Address [facility]/ZIP Co de Phone Number [facility]
[address] [place] [address], * TSH (09/25/2024 1:50 PM EDT) Pathologist [facility] TSH 2.940 0.270 - 4.200 uIU/mL 09/26/2024 2:43 AM EDT [facility] Blood Venipuncture / Unknown 09/25/2024 1:50 PM EDT 09/25/2024 1:50 PM EDT [facility] PA-C LAB BLOOD ORDERABLES Final Resu lt Performing Organization Address City/[facility]/ZIP Co de Phone Number [facility]
[address] [place] [address], * T4, Free (09/25/2024 1:50 PM EDT) Free T4 1.67 0.92 - 1.68 ng/dL 09/26/2024 2:43 AM EDT [facility] Blood Venipuncture / Unknown 09/25/2024 1:50 PM EDT 09/25/2024 1:50 PM EDT [facility] PA-C LAB BLOOD ORDERABLES Final Resu lt [facility]
[address] [place] [address], [place] [phone] * Phosphorus (09/25/2024 1:50 PM EDT) Pathologist [facility] Phosphorus 3.7 2.5 - 4.5 mg/dL 09/25/2024 8:59 PM EDT [facility] Blood Venipuncture / Unknown 09/25/2024 1:50 PM EDT 09/25/2024 1:50 PM EDT [facility] PA-C LAB BLOOD ORDERABLES Final Resu lt Performing Organization Address [facility]/ZIP Co de Phone Number [facility]
[address] [place] [address], [place] [phone] * Osmolality, Serum (09/25/2024 1:50 PM EDT) Pathologist [facility] Osmolality 294 280 - 301 mOsm/kg 09/26/2024 2:19 AM EDT [facility] Blood Structure of left upper limb / Unknown Venipuncture / Unknown 09/25/2024 1:50 PM EDT 09/25/2024 1:50 PM EDT [facility] PA-C LAB BLOOD ORDERABLES Final Resu lt Performing Organization Address City/[facility]/ZIP Co de Phone Number [facility]
[address] [place] [address], [place] [phone] * Comprehensive Metabolic Panel (09/25/2024 1:50 PM EDT) [facility] Glucose 79 65 - 99 mg/dL 09/26/2024 2:37 AM [facility] BUN 22.0 8.0 - 23.0 mg/dL 09/26/2024 2:37 AM [facility] Creatinine 0.91 0.57 - 1.00 mg/dL 09/26/2024 2:37 AM [facility] Sodium 136 136 - 145 mmol/L 09/26/2024 2:37 AM [facility] Potassium 4.0 3.5 - 5.2 mmol/L 09/26/2024 2:37 AM [facility] Chloride 103 98 - 107 mmol/L 09/26/2024 2:37 AM [facility] CO2 22.2 22.0 - 29.0 mmol/L 09/26/2024 2:37 AM [facility] Calcium 9.5 8.6 - 10.5 mg/dL 09/26/2024 2:37 AM [facility] Total Protein 6.4 6.0 - 8.5 g/dL 09/26/2024 2:37 AM [facility] Albumin 4.1 3.5 - 5.2 g/dL 09/26/2024 2:37 AM [facility] ALT (SGPT) 18 1 - 33 U/L 09/26/2024 2:37 AM [facility] AST (SGOT) 24 1 - 32 U/L 09/26/2024 2:37 AM [facility] Alkaline Phosphatase 77 39 - 117 U/L 09/26/2024 2:37 AM [facility] Total Bilirubin 0.4 0.0 - 1.2 mg/dL 09/26/2024 2:37 AM [facility] Globulin 2.3 gm/dL 09/26/2024 2:37 AM [facility] A/G Ratio 1.8 g/dL 09/26/2024 2:37 AM EDT [facility] BUN/Creatinine Ratio 24.2 7.0 - 25.0 09/26/2024 2:37 AM EDT [facility] Anion Gap 10.8 5.0 - 15.0 mmol/L 09/26/2024 2:37 AM EDT [facility] eGFR 67.6 >60.0 mL/min/1.7 3 09/26/2024 2:37 AM EDT [facility] Blood Venipuncture / Unknown 09/25/2024 1:50 PM EDT 09/25/2024 1:50 PM EDT Narrative [facility] - 09/26/2024 2:37 AM EDT GFR [...] does not include race as a factor us Kal [facility] LAB BLOOD ORDERABLES Final Resu lt [facility]
[address] [place] [address], * POC Glucose, Blood (09/25/2024 1:02 PM EDT) Glucose 106 70 - 130 mg/dL Lot Number [id number] Expiration Date 03/18/2025 Blood 09/25/2024 1:02 PM EDT Kal Davila PA-C POINT OF CARE TEST ORDERABLES F inal Result * LABS SCANNED (08/27/2024 10:41 AM EDT) Only the most recent of3 resultswithin the time period is included. Historical Provider LAB BLOOD ORDERABLES Mirna l Result * ECG Scan (08/27/2024 10:40 AM EDT) us Historical Provider ECG ORDERABLES Final Res ult from Last 3 Months Insurance MEDICARE A & B Member Subscriber Plan / Payer ( fective 2018-Present) Name:Leslie Martínez Member ID:[id number] Relation to Subscriber:Self Name:Leslie Martínez Subscriber ID:[id number] Payer ID:[id number] Group ID:Not on file Type:Not on file Address: [facility] [id number] Quality Practice [facility] Care Teams Road Boss Relationship Specialty Start Date End Date Ziyad Salomon MD [address] [facility] [address] [place] [address] PCP - General Adolescent Medicine 10/25/16
--- OUTSIDE RECORDS SUMMARY | 2024-10-28 09:56 | XMS_ITS | Encounter Summary ---
Author Organization [employer] ([place], [place], [place], [place]) Address [address] [place] [address] Care Team Providers Care Student Development Coordinator Name Role Phone Unavailable Primary Care Provider Unavailabl e Encounter Details Date Type Department Care Team (Late st Contact Info) Description 12/07/2020 Transcribed Document [facility] [place] Medicine [place] [address] ProviderJason MD [address] [place] [address] Social History Tobacco Use Types [...] Jason ProviderMD - 12/07/2020 10:22 AM CDT [facility] Main OR Preop Summary Primary Physician: MARLEY CLARK MD-ORT Finalized Date/Time: 12/07/20 16:21:55 Pt. Name: LESLIE MARTÍNEZ /Sex: 1955 Female Med Rec #: [id number] Physician: MARLEY CLARK MD-ORT Financial #: [id number] Pt. Type: O Room/Bed: 637/1 Admit/Disch: 12/07/20 05:53:00 - Institution: [facility] PreOp Case Times Entry 1 In Preop 12/07/20 07:27:00 Ready for Holding n/a Room Patient Ready for 10/25/21 09:02:00 Surgery Patient Out of Preop 12/07/20 09:40:00 Patient Out of n/a Holding Room Last Modified By: Maryuri Jackson RN 12/07/20 16:21:52 [facility] PreOp Case Times Audit 12/07/20 16:21:52 [employer] Operator: CONY Modifier: [id number] <+> 1 Patient Out of Preop 12/07/20 09:09:47 [employer] Operator: CONY Modifier: CONY <+> 1 Patient Ready for Surgery Finalized By: Maryuri Jackson, RN Document Signatures Signed By: Maryuri Jackson RN 12/07/20 16:21 Electronically signed by [facility] Conversion Mental Telepathist Cerner at 06/03/2022 8:52 AM CDT documented in this encounter Plan of Treatment Not on file documented as of this encounter Visit Diagnoses Not on filedocumented in this encounter
--- OUTSIDE RECORDS SUMMARY | 2024-10-28 09:56 | XMS_ITS | Clinical Summary ---
Author Organization [employer] ([place], [place], [place], [place]) Address [address] [place] [address] Care Team Providers Care Facing Machine Operator Name Role Phone Unavailable Primary [...]
--- OUTSIDE RECORDS SUMMARY | 2024-10-28 09:56 | XMS_ITS | Encounter Summary ---
[facility] Organization [facility] Address [address] [place] [address] Care Team Providers Care Health And Safety Representative Name Role Phone Ziyad Salomon MD Primary Care Provider + [phone] Reason for Visit * Reason Onset Date Comments Med Refill 10/15/2024 Encounter Details Date Type Department Care Team (Late st Contact Info) Description 10/15/2024 Refill [facility] CARDIOLOGY [address], [place] [address] Sabas Trinidad MD [address] [facility] [address] [place] [address] Med Refill Social History Tobacco [...] Description 10/30/2024 1:45 PM EDT Office Visit [facility] END[facility]Y [address] [facility] [address] [place] [address] Kal Davila PA-C [address] [place] [address] [phone] 11/27/2024 2:00 PM EDT Appointment [facility] [address] [place] [address] 12/04/2024 1:00 PM EDT Office Visit [facility] CARD[facility] [address] [place] [address] Sabas Trinidad MD [address] [facility] [address] [place] [address] documented as of this encounter Visit Diagnoses Not on filedocumented in this encounter Care Teams Health And Safety Representative Relationship Specialty Start Date End Date Ziyad Salomon MD [address] [facility] [address] [facility] [address] [place] [address] PCP - General Adolescent Medicine 10/25/16 documented as of this encounter
--- OUTSIDE RECORDS SUMMARY | 2024-10-28 09:56 | XMS_ITS | Encounter Summary ---
Author Organization [employer] ([place], [place], [place], [place]) Address [address] [place] [address] Care Team Providers Care Bench Hand Name Role Phone Unavailable Primary Care Provider Unavailabl e Encounter Details Date Type Department Care Team (Late st Contact Info) Description 12/07/2020 Transcribed Document [facility] Family Medicine [address] [place] [address] ProviderJason MD [address] [place] [id number] Social History Tobacco Use Types Packs/Day Years [...] 12/07/2020 7:53 EDT by Dano Max PATIENT OCCUPATIONAL THERAPY SUPERVISOR Phone Call for Consults Consult Phone Call/Page Attempt : Other: Completed 12/07 Dano Max PATIENT OCCUPATIONAL THERAPY SUPERVISOR - 12/08/2020 8:11 EDT documented in this encounter Plan of Treatment Not on file documented as of this encounter Visit Diagnoses Not on filedocumented in this encounter
--- OUTSIDE RECORDS SUMMARY | 2024-10-28 09:56 | XMS_ITS | Encounter Summary ---
Author Organization [employer] ([place], [place], [place], [place]) Address [address] [place] [address] Care Team Providers Care Family Medicine Physician Assistant Name Role Phone Unavailable Primary Care Provider Unavailabl e Encounter Details Date Type Department Care Team (Late st Contact Info) Description 12/07/2020 Transcribed Document [facility] Family Medicine [facility] [place] [address] ProviderJason MD [address] [place] [address] Social History Tobacco Use Types [...] of Dr. Quinteros or Dr. Juarez, call [phone] If you are a patient of Dr. Hernandez, call [phone] Nurse Navigator: Jesenia Burroughs Office: [phone]; ; available during regular business hours documented in this encounter Plan of Treatment Not on file documented as of this encounter Visit Diagnoses Not on filedocumented in this encounter
[2024-10-28 10:51] LABS: Albumin Level 3.6 g/dl (3.5-5.0); Anion Gap 9.3 mEq/L (5-15); Blood Urea Nitrogen 20 mg/dl (7-17); Calcium 8.7 mg/dl (8.4-10.2); Carbon Dioxide 26 mmol/L (22.0-30.0); Chloride 110 mmol/L (98-107); Creatinine,Serum 0.70 mg/dl (0.52-1.04); Estimated Glomerular Filt Rate 82 ml/min (>60); GFR (African American) 100 ML/MIN (>60); Glucose 91 mg/dl (74-100); Phosphorous 4.0 mg/dl (2.5-4.5); Potassium 4.3 mmoL/L (3.5-5.1); Sodium 141 mmol/L (136-145)
== END 2024-10-28 23:59 | disposition home or self-care (01) ==
PROVIDERS: PCP Internal Medicine Adolescent Medicine; Visit Provider Physician Assistant
DX: R63.1 Polydipsia (principal); R35.89 Other polyuria
CPT/HCPCS: 36415; 80069; 83930; 83935

== ENCOUNTER 2025-01-27 08:45 | Outpatient (CLI) | payer MEDICARE, SELFPAY ==
[2025-01-27 09:27] LABS: Hematocrit 39.5 % (37.0-47.0); Hemoglobin 13.0 g/dL (12.2-16.2); Immature Granulocytes % 0.2 %; Mean Corpuscular HGB Conc 32.9 g/dL (31.8-35.4); Mean Corpuscular Hemoglobin 29.3 pg (27.0-31.2); Mean Corpuscular Volume 89.0 fl (81-99); Nucleated Red Blood Cells % 0 %; Platelet Count 214 K/mm3 (142-424); Red Blood Count 4.44 M/mm3 (4.20-5.40); Red Cell Distribution Width-SD 42.2 fL; White Blood Count 4.7 K/mm3 (4.8-10.8)
[2025-01-27 09:52] LABS: Alanine Aminotransferase 24 U/L (12-78); Albumin Level 3.8 g/dl (3.5-5.0); Albumin/Globulin Ratio 1.6 (1.1-1.8); Alkaline Phosphatase 79 U/L (38-126); Anion Gap 13.2 mEq/L (5-15); Aspartate Amino Transferase 25 U/L (14-36); Bilirubin,Total 0.6 mg/dl (0.2-1.3); Blood Urea Nitrogen 20 mg/dl (7-17); Calcium 9.0 mg/dl (8.4-10.2); Carbon Dioxide 24 mmol/L (22.0-30.0); Chloride 107 mmol/L (98-107); Cholesterol 79 mg/dl (140-200); Creatinine,Serum 0.90 mg/dl (0.52-1.04); Estimated Glomerular Filt Rate 62 ml/min (>60); GFR (African American) 75 ML/MIN (>60); Globulin 2.4 g/dL (1.3-3.2); Glucose 91 mg/dl (74-100); HDL Cholesterol 28 mg/dl (40-60); Potassium 4.2 mmoL/L (3.5-5.1); Sodium 140 mmol/L (136-145); Total Protein,Serum 6.2 g/dl (6.3-8.2); Triglycerides 92 mg/dl (30-150)
[2025-01-27 10:46] LABS: Vitamin B12 > 1000 pg/mL (239-931)
[2025-01-27 11:10] LABS: Hemoglobin A1C 5.4 % (4.0-6.0)
== END 2025-01-27 23:59 | disposition home or self-care (01) ==
LOC: LAB 08:47
PROVIDERS: PCP Internal Medicine Adolescent Medicine; Visit Provider Internal Medicine Adolescent Medicine
DX: E11.69 Type 2 diabetes mellitus with other specified complication (principal); I10 Essential (primary) hypertension; E03.9 Hypothyroidism, unspecified; E53.8 Deficiency of other specified B group vitamins; E78.5 Hyperlipidemia, unspecified
CPT/HCPCS: 36415; 80053; 80061; 82607; 83036; 83695; 85025